=== PATIENT | male | born 1990 | race Caucasian/White ===

== ENCOUNTER 2020-10-11 18:19 | Emergency (ER) | payer OTHER ==
[2020-10-11] MEDS ORDERED: ONDANSETRON 4 MG/2 ML VIAL ONE (19:07)
[2020-10-11] MEDS ORDERED: NA CHLORIDE 0.9% 1,000 ML ONE (19:08)
[2020-10-11] MEDS ORDERED: FAMOTIDINE 20 MG/2 ML VIAL IV ONE (19:08)
[2020-10-11 19:15] LABS: ALT/SGPT 123 U/L (12-78); AST/SGOT 131 U/L (15-37); Albumin 4.1 g/dL (3.4-5.0); Alkaline Phosphatase 66 U/L (45-117); BUN Blood Urea Nitrogen 8 mg/dL (7-18); Bicarbonate 23 mmol/L (21-32); Bilirubin Direct 0.1 mg/dL (0-0.2); Bilirubin Total 0.3 mg/dL (0.2-1.0); Glucose Level 104 mg/dL (74-106); Lipase 328 U/L (73-393); Magnesium 2.2 mg/dL (1.8-2.4); NT PRO-BNP 26 pg/mL (<125); Potassium 3.8 mmol/L (3.5-5.1); Protein, Total 8.6 g/dL (6.4-8.2); Sodium Level 144 mmol/L (136-145); Troponin (Emerg Dept Use Only) < 0.02 ng/mL (0.0-0.045)
[2020-10-11 19:20] LABS: Absolute Lymphocytes (CBC) 1.3 K/uL (0.7-4.9); Hematocrit 41.7 % (39.6-49.0); Lymphocytes % 28.6 % (15.3-44.8); MPV 6.2 fL (7.6-11.3); RBC Red Blood Cell Count 4.31 M/uL (4.33-5.43)
--- NOTE | 2020-10-11 19:27 | RAD REPORT ---
EXAM DESCRIPTION: RAD - Chest Single View - 10/11/2020 7:22 pm CLINICAL HISTORY: CHEST PAIN Chest pain. COMPARISON: No comparisons FINDINGS: Portable technique limits examination quality. The lungs are grossly clear. The heart is normal in size. No displaced fractures. IMPRESSION: No acute intrathoracic process suspected.
[2020-10-11 19:32] LABS: Protime INR 1.03
--- NOTE | 2020-10-11 20:41 | RAD REPORT ---
EXAM DESCRIPTION: CT - Chest For Pe Angio - 10/11/2020 8:30 pm CLINICAL HISTORY: Chest pain. CHEST PAIN COMPARISON: No comparisons TECHNIQUE: CT angiogram of the pulmonary arteries was performed with MIP. All CT scans are performed using dose optimization technique as appropriate and may include automated exposure control or mA/KV adjustment according to patient size. FINDINGS: No evidence of pulmonary thromboembolism. No acute aortic finding demonstrated. The lungs are clear although respiratory motion artifact is present. No significant pericardial or pleural fluid. No concerning bony finding. Fatty liver. IMPRESSION: No evidence of pulmonary thromboembolism.
--- NOTE | 2020-10-11 21:24 | EDPHYS ---
Physician Documentation [facility] Name: Mc Barrios Age: 30 yrs Sex: Male : 1990 Arrival Date: 10/11/2020 Time: 18:20 Bed 4 Private MD: ED Physician Diego Pearson HPI: 10/11 18:29 This 30 yrs old Male presents to ER via EMS with complaints of Chest Pain, jmm ETOH Abuse. 18:29 The patient or guardian reports chest pain that is located primarily in the substernal [facility] area. The pain does not radiate. Associated signs and symptoms: Pertinent positives: abdominal pain, vomiting. The chest pain is described as aching. This is a 30 year old male with a history of alcoholism and htn that presents to the ED with complaints of chest pain beginning earlier today. Patient states having an episode of vomiting this morning and has not eaten since. Denies history of CAD. . Historical: - Allergies: 18:23 Sulfa (Sulfonamide Antibiotics); iw - Home Meds: 18:26 lisinopril 10 mg Oral tab 1 tab once daily [Active]; iw - PMHx: 18:26 Hypertension; iw - PSHx: 18:23 Hernia repair; iw - Immunization history:: Adult Immunizations unknown. - Social history:: Smoking status: Patient denies any tobacco usage or history of. Patient uses alcohol. ROS: 18:29 Constitutional: Negative for fever, chills, and weight loss. jmm 18:29 Cardiovascular: Positive for chest pain. 18:29 All other systems are negative. Exam: 18:29 Constitutional: This is a well developed, well nourished patient who is awake, alert, jmm and in no acute distress. Head/Face: atraumatic. Eyes: EOMI, no conjunctival erythema appreciated ENT: Moist Mucus Membranes Neck: Trachea midline, Supple Chest/axilla: Normal chest wall appearance and motion. Cardiovascular: Regular rate and rhythm. No edema appreciated Respiratory: Normal respirations, no respiratory distress appreciated Abdomen/GI: Non distended, soft Back: Normal ROM Skin: General appearance color normal MS/ Extremity: Moves all extremities, no obvious deformities appreciated, no edema noted to the lower extremities Neuro: Awake and alert, normal gait Psych: Behavior is normal, Mood is normal, Patient is cooperative and pleasant Vital Signs: 18:23 BP 133 / 64; Pulse 116; Resp 18; Temp 98.5; Pulse Ox 92% on R/A; iw 20:00 BP 133 / 77; Pulse 100; Resp 18; Pulse Ox 98% on R/A; ea 21:30 BP 135 / 79; Pulse 92; Resp 18; Pulse Ox 99% ; ea MDM: 18:29 Patient medically screened. cris 21:20 Data reviewed: vital signs, nurses notes. Counseling: I had a detailed discussion with yenifer the patient and/or guardian regarding: the historical points, exam findings, and any diagnostic results supporting the discharge/admit diagnosis, lab results, radiology results, the need for outpatient follow up. ED course: HEART Score = 1. Patient given strict return precautions. Patient understood and agrees with the plan of care. . 10/11 18:32 Order name: Basic Metabolic Panel; Complete Time: 19:29 [facility] 10/11 18:32 Order name: CBC with Diff; Complete Time: 19:29 [facility] 10/11 18:32 Order name: LFT's; Complete Time: 19:29 [facility] 10/11 18:32 Order name: Magnesium; Complete Time: 19:29 [facility] 10/11 18:32 Order name: NT PRO-BNP; Complete Time: 19:29 [facility] 10/11 18:32 Order name: PT-INR; Complete Time: 19:35 [facility] 10/11 18:32 Order name: Troponin (emerg Dept Use Only); Complete Time: 19:29 [facility] 10/11 18:32 Order name: XRAY Chest (1 view); Complete Time: 19:31 [facility] 10/11 18:32 Order name: D-Dimer; Complete Time: 19:35 [facility] 10/11 18:32 Order name: Lipase; Complete Time: 19:29 [facility] 10/11 18:32 Order name: ETOH Level; Complete Time: 19:29 [facility] 10/11 19:58 Order name: CT Chest For PE Angio; Complete Time: 20:49 [facility] 10/11 18:32 Order name: EKG; Complete Time: 18:34 [facility] 10/11 18:32 Order name: Cardiac monitoring; Complete Time: 18:33 [facility] 10/11 18:32 Order name: EKG - Nurse/Tech; Complete Time: 18:33 [facility] 10/11 18:32 Order name: IV Saline Lock; Complete Time: 18:34 [facility] 10/11 18:32 Order name: Labs collected and sent; Complete Time: 18:49 [facility] 10/11 18:32 Order name: O2 Per Protocol; Complete Time: 18:33 [facility] 10/11 18:32 Order name: O2 Sat Monitoring; Complete Time: 18:33 [facility] Administered Medications: 18:55 Drug: NS 0.9% 1000 ml Route: IV; Rate: 1 bolus; Site: left antecubital; 7 21:49 Follow up: Response: No adverse reaction; IV Status: Completed infusion; IV Intake: ea 1000ml 18:55 Drug: Zofran (Ondansetron) 4 mg Route: IVP; Site: left antecubital; jl7 20:00 Follow up: Response: No adverse reaction ea 18:57 Drug: Pepcid 20 mg Route: IVP; Site: left antecubital; jl7 20:00 Follow up: Response: No adverse reaction ea Disposition: 10/12 06:00 Co-signature as Attending Physician, Diego Pearson MD I agree with the assessment and cris plan of care. Disposition: 10/11/20 21:23 Discharged to Home. Impression: Chest pain, unspecified, Unspecified abdominal pain. - Condition is Stable. - Discharge Instructions: Abdominal Pain, Adult, Nonspecific Chest Pain. - Prescriptions for chlordiazepoxide HCl 25 mg Oral capsule - take 2 capsule by ORAL route every 4-6 hours up to 300 mg/day; 30 capsule. Lisinopril 10 mg Oral Tablet - take 1 tablet by ORAL route once daily; 30 tablet. - Medication Reconciliation Form, Thank You Letter, Antibiotic Education, Prescription Opioid Use, Work release form form. - Follow up: Private Physician; When: 2 - 3 days; Reason: Recheck today's complaints, Continuance of care, Re-evaluation by your physician. Signatures: Dispatcher [employer] Diego Turner MD MD cha Mickail, Joel, PA PA jmm Williams, Irene, RN Lawrence Beckman RN RN jl7 Antunez, Elena, RN RN ea Corrections: (The following items were deleted from the chart) 10/11 21:49 21:23 10/11/2020 21:23 Discharged to Home. Impression: Chest pain, unspecified; ea Unspecified abdominal pain. Condition is Stable. Forms are Medication Reconciliation Form, Thank You Letter, Antibiotic Education, Prescription Opioid Use. Follow up: Private Physician; When: 2 - 3 days; Reason: Recheck today's complaints, Continuance of care, Re-evaluation by your physician. yenifer
--- NOTE | 2020-10-11 21:24 | ER ---
Nurse's Notes [facility] Name: Mc Barrios Age: 30 yrs Sex: Male : 1990 Arrival Date: 10/11/2020 Time: 18:20 Bed 4 Private MD: Diagnosis: Chest pain, unspecified;Unspecified abdominal pain Presentation: 10/11 18:20 Chief complaint: EMS states: pt has been on a four day alcohol binge , has been iw drinking liquor and gatorade, last drink was 2 pm today, started having left sided chest pain X 1 hour, pt states he drinks heavily every couple days. Coronavirus screen: At this time, the client does not indicate any symptoms associated with coronavirus-19. Ebola Screen: Patient negative for fever greater than or equal to 101.5 degrees Fahrenheit, and additional compatible Ebola Virus Disease symptoms Patient denies exposure to infectious person. Patient denies travel to an Ebola-affected area in the 21 days before illness onset. No symptoms or risks identified at this time. Initial Sepsis Screen: Does the patient meet any 2 criteria? No. Patient's initial sepsis screen is negative. Does the patient have a suspected source of infection? No. Patient's initial sepsis screen is negative. Risk Assessment: Do you want to hurt yourself or someone else? Patient reports no desire to harm self or others. Onset of symptoms was October 11, 2020. 18:20 Method Of Arrival: EMS: [facility] 18:20 Acuity: ROSCOE 3 iw Historical: - Allergies: 18:23 Sulfa (Sulfonamide Antibiotics); iw - Home Meds: 18:26 lisinopril 10 mg Oral tab 1 tab once daily [Active]; iw - PMHx: 18:26 Hypertension; iw - PSHx: 18:23 Hernia repair; iw - Immunization history:: Adult Immunizations unknown. - Social history:: Smoking status: Patient denies any tobacco usage or history of. Patient uses alcohol. Screenin:34 Abuse screen: Denies threats or abuse. Denies injuries from another. Nutritional jl7 screening: No deficits noted. Tuberculosis screening: No symptoms or risk factors identified. Fall Risk IV access (20 points). Total Chung Fall Scale indicates No Risk (0-24 pts). Assessment: 18:30 General: Appears in no apparent distress. uncomfortable, Behavior is calm, cooperative, jl7 appropriate for age. Pain: Complains of pain in anterior aspect of left upper chest and epigastric area Pain does not radiate. Pain currently is 6 out of 10 on a pain scale. Pain began 2 hours ago. Neuro: Level of Consciousness is awake, alert, obeys commands, Oriented to person, place, time, situation. Cardiovascular: Patient's skin is warm and dry. Rhythm is sinus tachycardia. Respiratory: Airway is patent Respiratory effort is even, unlabored, Respiratory pattern is regular, symmetrical. GI: Abdomen is non-distended, Reports epigastric pain. Derm: Skin is pink, warm \T\ dry. 20:28 Reassessment: Patient and/or family updated on plan of care and expected duration. Pain ea level reassessed. Patient is alert, oriented x 3, equal unlabored respirations, skin warm/dry/pink. Pt taken to CT. 20:39 Reassessment: Patient and/or family updated on plan of care and expected duration. Pain ea level reassessed. Patient is alert, oriented x 3, equal unlabored respirations, skin warm/dry/pink. Returned from CT. 21:45 Reassessment: Patient and/or family updated on plan of care and expected duration. Pain ea level reassessed. Patient is alert, oriented x 3, equal unlabored respirations, skin warm/dry/pink. Discharge instruction given to patient verbalized the understaining of instruction. Pt left ED ambulatory accompanied by mother, pt tolerating well. Vital Signs: 18:23 BP 133 / 64; Pulse 116; Resp 18; Temp 98.5; Pulse Ox 92% on R/A; iw 20:00 BP 133 / 77; Pulse 100; Resp 18; Pulse Ox 98% on R/A; ea 21:30 BP 135 / 79; Pulse 92; Resp 18; Pulse Ox 99% ; ea ED Course: 18:20 Patient arrived in ED. iw 18:20 Ruy Ahmadi PA is PHCP. yenifer 18:20 Diego Pearson MD is Attending Physician. yenifer 18:22 Lawrence Ramos RN is Primary Nurse. jl7 18:23 Triage completed. iw 18:23 Arm band placed on. iw 18:34 Patient has correct armband on for positive identification. Bed in low position. Call jl7 light in reach. Side rails up X2. desk monitor on. Pulse ox on. NIBP on. 18:34 Patient maintains SpO2 saturation greater than 95% on room air. jl7 18:45 Maintain EMS IV. Dressing intact. Good blood return noted. Site clean \T\ dry. Gauge \T\ jl 7 site: 20 left AC. 18:45 Initial lab(s) drawn, by me, sent to lab. jl7 19:22 XRAY Chest (1 view) In Process Unspecified. EDMS 19:35 Notified Nurse Practitioner and/or Physician Director Of Hospitality of a critical lab result(s), D sg Dimer 522. 20:30 CT Chest For PE Angio In Process Unspecified. EDMS 21:46 No provider procedures requiring assistance completed. IV discontinued, intact, ea bleeding controlled, No redness/swelling at site. Pressure dressing applied. Administered Medications: 18:55 Drug: NS 0.9% 1000 ml Route: IV; Rate: 1 bolus; Site: left antecubital; jl7 21:49 Follow up: Response: No adverse reaction; IV Status: Completed infusion; IV Intake: ea 1000ml 18:55 Drug: Zofran (Ondansetron) 4 mg Route: IVP; Site: left antecubital; jl7 20:00 Follow up: Response: No adverse reaction ea 18:57 Drug: Pepcid 20 mg Route: IVP; Site: left antecubital; jl7 20:00 Follow up: Response: No adverse reaction ea Intake: 21:49 IV: 1000ml; Total: 1000ml. ea Outcome: 21:23 Discharge ordered by . yenifer 21:48 Discharged to home ambulatory, with family. ea 21:48 Condition: stable 21:48 Discharge instructions given to patient, Instructed on discharge instructions, follow up and referral plans. medication usage, Demonstrated understanding of instructions, follow-up care, medications, Prescriptions given X 2. 21:49 Patient left the ED. ea Signatures: Dispatcher [employer] EDRodriguez Buchanan, RN Ruy Palomino PA PA jmm Williams, Irene, RN Lawrence Beckman RN RN jl7 Antunez, Elena, RN RN ea
--- NOTE | 2020-10-12 06:23 | EKG ---
Test Date: 2020-10-11 Test Time: 18:22:07 [employer] Technician: ERIC MEASUREMENT RESULTS: Intervals: Rate: 118 WV: 140 QRSD: 88 QT: 330 QTc: 462 [place]: P: 9 WV: 140 QRS: -5 T: 24 INTERPRETIVE STATEMENTS: Sinus tachycardia Minimal voltage criteria for LVH, may be normal variant Borderline ECG No previous ECG available for comparison Electronically Signed On 10-12-20 06:22:34 SENIOR RISK MANAGER by Nick Hammond
[2020-10-12 15:40] VITALS: TEMP 98.5
[2020-10-12 16:11] VITALS: BP 135/79; O2SAT 99
== END 2020-10-11 21:49 | disposition home or self-care (01) ==
LOC: ER 18:19
DX: R07.9 Chest pain, unspecified (principal); R10.9 Unspecified abdominal pain; I10 Essential (primary) hypertension; Z88.2 Allergy status to sulfonamides
CPT/HCPCS: 96361; 93005; 85025; 80048; 36415; 80320; 83735; 85610; 85379; 80076; 84484; 83690; 83880; 71275; 71045; 96375; 96374; 99285; Q9967; J7030; J2405

== ENCOUNTER 2020-11-22 16:40 | Emergency (ER) | payer OTHER ==
--- OUTSIDE RECORDS SUMMARY | 2020-11-22 16:43 | XMS REPORT | Continuity of Care Document ---
:1990 Author Organization [facility] Team Providers Name Role Phone [facility] Unavailable Un available Problems Problem Status Onset Classification Date Comments Sourc e Date Reported PANCREATITIS Active Memoria l 0 [place] ACUTE ALCOHOLIC Active Reagan rial PANCREATITIS 0 Per Acute 08/28/2020 [facility] [place] pancreatitis with uninfected necrosis, unspecified ALCOHOL INDUCED Active Reagan rial ACUTE [place] PANCREATITIS WITHO ACUTE Active [facility] PANCREATITIS [place] WITH UNINFECTED NECRO Medications Medication Details Route Status Patient Ordering Order Source Instructions Provider Date Fenofibrate 145 MG 145 mg = 1 Active MH Oral Tablet tab, PO, 2020 [place] Daily, # 30 tab, 0 Refill(s), Pharmacy: [facility] #[id number], 190.5, cm, 08/22/20 23:01:00 CDT, Height, 122.045, kg, 08/22/20 23:01:00 CDT, Weight omega-3 1 gm = 1 cap, Active MH polyunsaturated PO, BID, # 60 2019 [place] fatty acids 1000 cap, 0 mg oral capsule Refill(s), Pharmacy: [facility] #[id number], 190.5, cm, 08/22/20 23:01:00 CDT, Height, 122.045, kg, 08/22/20 23:01:00 CDT, Weight ciprofloxacin 500 500 mg = 1 Active 08/26/ MH mg oral tablet tab, PO, Q12H, 2019 [place] for UTI, X 3 day, # 6 tab, 0 Refill(s), Pharmacy: [facility] #[id number], 190.5, cm, 08/22/20 23:01:00 CDT, Height, 122.045, kg, 08/22/20 23:01:00 CDT, Weight Metronidazole 500 500 mg = 1 Active 08/26/ MH MG Oral Tablet tab, PO, Q8H, 2020 [place] [Flagyl] X 3 day, # 9 tab, 0 Refill(s), Pharmacy: [facility] #[id number], 190.5, cm, 08/22/20 23:01:00 CDT, Height, 122.045, kg, 08/22/20 23:01:00 CDT, Weight thiamine 100 mg 100 mg = 1 Active oral tablet tab, PO, 2020 [place] Daily, X 30 day, # 30 tab, 0 Refill(s), Pharmacy: [facility] #[id number], 190.5, cm, 08/22/20 23:01:00 CDT, Height, 122.045, kg, 08/22/20 23:01:00 CDT, Weight Folic Acid 1 MG 1 mg = 1 tab, Active MH Oral Tablet PO, Daily, # 2020 [place] 30 tab, 0 Refill(s), Pharmacy: [facility] #[id number], 190.5, cm, 08/22/20 23:01:00 CDT, Height, 122.045, kg, 08/22/20 23:01:00 CDT, Weight Chlordiazepoxide 10 mg = 1 cap, Active MH Hydrochloride 10 PO, QID, X 3 2020 [place] MG Oral Capsule day, # 12 cap, 0 Refill(s), Pharmacy: [facility] #[id number], 190.5, cm, 08/22/20 23:01:00 CDT, Height, 122.045, kg, 08/22/20 23:01:00 CDT, Weight Lorazepam 1 MG 1 mg = 1 tab, Active MH Oral Tablet PO, TID, PRN 2020 [place] [Ativan] as needed for anxiety, X 7 day, # 24 tab, 0 Refill(s), Pharmacy: [facility] #[id number], 190.5, cm, 08/22/20 23:01:00 CDT, Height, 122.045, kg, 08/22/20 23:01:00 CDT, Weight Famotidine 20 MG 20 mg = 1 tab, Active MH Oral Tablet PO, Q12H, # 14 2020 Mickie and [Pepcid] tab, 0 Refill(s), Pharmacy: [facility] #[id number], 190.5, cm, 08/22/20 23:01:00 CDT, Height, 122.045, kg, 08/22/20 23:01:00 CDT, Weight labetalol 100 mg 100 mg = 1 Active oral tablet tab, PO, TID, 2019 [place] # 90 tab, 0 Refill(s), Pharmacy: [facility] #[id number], 190.5, cm, 08/22/20 23:01:00 CDT, Height, 122.045, kg, 08/22/20 23:01:00 CDT, Weight Potassium Chloride Notes: (Same Inactive 1.33 MEQ/ML Oral as: Potassium 2019 [place] Solution Chloride) Tramadol Notes: Not to No Longer exceed Active 2019 [place] 400mg/day. (Same As: Ultram) Lisinopril Notes: (Same No Longer as: Prinivil, Active 2019 [place] Zestril) Potassium Chloride Notes: (Same No Longer as: K-Dur 20) Active 2019 [place] "Do Not Crush" Give with food and full glass of water For patients unable to swallow tablet, dissolve in one half glass of water. Allow about 2 minutes for the tablets to disintegrate. Stir before giving to prepare slurry and administer. Please exclude Patient’ s with feeding tube less than 14 [place] (Dobhoff, J-tube etc) and pediatric and patients. potassium Notes: (Same No Longer phosphate-sodium as: Phos-NaK) Active 2019 [place] phosphate 250 Each 1.5 gm mg-280 mg-160 mg pkt has 250mg oral powder for phosphorous. reconstitution Mix w/2.5oz water and stir. potassium Notes: (Same No Longer phosphate as: K Active 2019 [place] Phosphate.) Do not infuse phosphorous concurrently in the same line as TPN or IVF that contains calcium. For double lumen central lines, phosphorous may be infused in a separate lumen from TPN. 1 mMol phoshate has 1.47 mEq potassium Infuse over 4 hours sodium phosphate Notes: Infuse No Longer over [address] Do not infuse phosphorous concurrently in the same line as TPN or IVF that contains calcium. For double lumen central lines, phosphorous may be infused in a separate lumen from TPN. Magnesium Sulfate Notes: WASTE: No Longer F/P - Sink; E Active 2019 [place] - [email or web address] Trash Bin Magnesium Oxide Notes: (Same No Longer H as: Mag-Ox Active 2019 [place] 400) Magnesium oxide [id number] elemental magnesium Dose=____mg magnesium oxide (___mg elemental magnesium) Calcium Gluconate Notes: WASTE: No Longer F/P - Sink; E Active 2019 [place] - [facility] Trash Bin Potassium Chloride Notes: (Same Inactive 1.33 MEQ/ML Oral as: Potassium 2019 [place] Solution Chloride) Labetalol Notes: With No Longer food. (Same 2019 [place] as:Trandate, Normodyne) Lactulose 667 Notes: (Same Inactive MG/ML Oral as:Chronulac) 2019 [facility] d Solution Haldol Notes: (Same Inactive as: Haldol) 2019 [place] Ciprofloxacin Notes: Do not No Longer refrigerate Active 2019 [place] Flagyl Notes: (Same No Longer as: Flagyl) [address] Avoid alcohol. Famotidine 20 MG Notes: (Same No Longer Oral Tablet as: Pepcid) Active [address] [place] [address] [Pepcid] 168 HR Clonidine Notes: Patch No Longer 0.84348 MG/HR delivers 0.2 Active 2019 [place] and Transdermal Patch mg/24 hours; Patch is applied weekly. "Remove old patch before application of new patch" (Same As: [id number] ) Labetalol Notes: (Same No Longer as: Normodyne, Active 2019 [place] Trandate) Push over 2 minutes Give bolus over 2-3 minutes. Fenofibrate 160 MG Notes: (Same No Longer Oral Tablet as: Tricor) Active 2019 [place] omega-3 Notes: (Same No Longer polyunsaturated as: [place], 2019 [place] fatty acids formally named [place]) "Do Not Crush" Chlordiazepoxide Notes: (Same No Longer Hydrochloride 10 As: Librium) Active 2019 [place] MG Oral Capsule Folic Acid Notes: (Same No Longer as: Folvite) Active 2019 [place] multivitamin Notes: (Same Inactive as:Thera) 2019 [place] WASTE: F/P - Black; E - Municipal Trash Bin Take with food. Thiamine Notes: (Same No Longer As: Vitamin Active 2019 [place] B1) multivitamin with Notes: (Same No Longer minerals as:Thera-M, Active 2019 [place] Theragran-M) WASTE: F/P - Black; E - Municipal Trash Bin Give with food. Reglan Notes: (Same No Longer as: Reglan) Active 2019 [place] Lorazepam Notes: (Same No Longer as: Ativan) Active 2019 [place] Clonidine Notes: (Same No Longer As: Catapres) Active 2019 [place] Phenergan 12.5 mg, Inactive Route: IVPB, 2019 [place] Q4H, Dosing Weight 122.045, kg, PRN Nausea & Vomiting, Start date: 08/23/20 8:13:00 CDT, Duration: 30 day, Stop date: 09/22/20 8:12:00 CDT meropenem Notes: Same as No Longer Merrem Active 2019 [place] Lovenox Notes: (Same No Longer as: Lovenox) Active 2019 [place] Metoprolol Notes: (Same Inactive as: Lopressor) 2019 [place] Push over 2 minutes lisinopril 10 mg 10 mg = 1 tab, Active oral tablet PO, Daily, # 2020 [place] 30 tab, 0 Refill(s) NS (Bolus) IV 1,000 mL, Inactive 1,000 ml/hr, 2019 [place] Infuse Over: 1 hr, Route: IV, 1,000, Drug form: INJ, ONCE, Priority: STAT, Dosing Weight 122.045 kg, Start date: 08/22/20 23:14:00 CDT, Stop date: 08/22/20 23:14:00 CDT, 0 Ativan Notes: (Same No Longer as: Ativan) 2019 [place] NS 1,000 mL 1,000 mL, No Longer Rate: 100 Active 2019 [place] ml/hr, Infuse over: 10 hr, Route: IV, Dosing Weight 122.045 kg, Total Volume: 1,000, Start date: 08/22/20 23:11:00 CDT, Duration: 30 day, Stop date: 09/21/20 23:10:00 CDT, 2.56, m2, 0 Dilaudid Notes: Same No Longer as: Dilaudid Active 2019 [place] Dextrose 50% 12.5 gm, 25 No Longer Syringe (D50W) mL, Route: Active 2019 [facility] nd IVP, Drug Form: INJ, Dosing Weight 122.045, kg, PRN, PRN Blood Glucose Results, Start date: 08/22/20 23:10:00 CDT, Duration: 30 day, Stop date: 09/21/20 23:09:00 CDT, 0 Glucagon 1 mg, Route: No Longer IM, Drug form: Active 2019 [place] PDR/INJ, PRN, Dosing Weight 122.045, kg, PRN Blood Glucose Results, Start date: 08/22/20 23:10:00 CDT, Duration: 30 day, Stop date: 09/21/20 23:09:00 CDT, 0 Ondansetron Notes: (Same No Longer as: Zofran) 2019 [place] MEDICATION WASTE Product Size: 4 mg Product Wasted: ___ mg Allergies, Adverse Reactions, Alerts Substance Category Reaction Severity Reaction Status Date Comments S ource type Reported sulfa drugs Assertion Drug Active allergy [facility] Immunizations No Data Provided for This Section Results Order Name Results Value Reference Date Interpretation Comments Barb rce Range CHEM PANEL Glucose Lvl 106 70 - 99 08/26 [place] CHEM PANEL BUN 8 7 - 22 08/26 [facility] CHEM PANEL Creatinine 0.65 0.50 - 08/26 Lvl 1.40 [facility] CHEM PANEL Sodium Lvl 137 135 - 145 08/26 [place] CHEM PANEL Potassium 3.1 3.5 - 5.1 10 MH Lvl /2019 [place] CHEM PANEL Chloride Lvl 102 95 - 109 08/26 MH [place] CHEM PANEL CO2 26 24 - 32 08/26 [place] CHEM PANEL Calcium Lvl 8.2 8.5 - 10.5 08/26 MH [place] CHEM PANEL Total 6.4 6.4 - 8.4 08/26 MH Protein [place] CHEM PANEL Albumin Lvl 2.3 3.5 - 5.0 08/26 MH [place] CHEM PANEL ALT 76 0 - 65 08/26 MH [place] CHEM PANEL AST 86 0 - 37 08/26 MH [place] CHEM PANEL Alk Phos 85 39 - 136 08/26 [place] CHEM PANEL Bili Total 0.8 0.2 - 1.3 08/26 [place] CHEM PANEL AGAP 12.1 10.0 - 08/26 MH 20.0 [place] CHEM PANEL B/C Ratio 12 6 - 25 08/26 [facility] CHEM PANEL Globulin 4.1 2.7 - 4.2 08/26 MH [place] CHEM PANEL A/G Ratio 0.6 0.7 - 1.6 08/26 [facility] CHEM PANEL eGFR 131 08/26 Result Comment: The [facility] eGFR is calculated using the CKD-EPI formula. In most young, healthy individuals the eGFR will be >90 mL/min/1.73m2. The eGFR declines with age. An eGFR of 60-89 may be normal in some populations, particularly the elderly, for whom the CKD-EPI formula has not been extensively validated. Use of the eGFR is not recommended in the following populations:<b r/>
Indivi duals with unstable creatinine concentrations , including patients and those with serious co-morbid conditions.

Patient s with extremes in muscle mass or diet.

The data above are obtained from the National Kidney Disease Education Program (NKDEP) which additionally recommends that when the eGFR is used in patients with extremes of body mass index for purposes of drug dosing, the eGFR should be multiplied by the estimated BMI. HEMATOLOGY Segs 74.5 45.0 - 10 MH 75.0 [place] HEMATOLOGY Lymphocytes 12.0 20.0 - 10/04 MH 40.0 /2019 [place] HEMATOLOGY Monocytes 11.7 2.0 - 12.0 10/04 MH /2019 [place] HEMATOLOGY Eosinophils 1.6 0.0 - 4.0 10/04 MH /2019 [place] HEMATOLOGY Basophils 0.2 0.0 - 1.0 10/ MH /2019 [place] HEMATOLOGY Neutrophils 9.7 1.5 - 8.1 10/04 MH # /2019 [place] HEMATOLOGY Lymphocytes 1.6 1.0 - 5.5 10/04 MH # /2019 [place] HEMATOLOGY Monocytes # 1.5 0.0 - 0.8 10/ MH /2019 [place] HEMATOLOGY Eosinophils 0.2 0.0 - 0.5 10/ MH # /2019 [place] HEMATOLOGY WBC 13.0 3.7 - 10.4 10/ MH /2019 [place] HEMATOLOGY RBC 3.37 4.70 - 10/04 MH 6.10 [place] HEMATOLOGY Hgb 11.5 14.0 - 10/04 MH 18.0 /2019 [place] HEMATOLOGY Hct 33.6 42.0 - 10/04 MH 54.0 /2019 [place] HEMATOLOGY MCV 99.7 80.0 - 10/04 MH 94.0 /2019 [place] HEMATOLOGY MCH 34.2 27.0 - 10/04 MH 31.0 [place] HEMATOLOGY MCHC 34.3 32.0 - 10/04 MH 36.0 [place] HEMATOLOGY RDW 13.2 11.5 - 10/04 MH 14.5 [place] HEMATOLOGY Platelet 175 133 - 450 10/ [place] HEMATOLOGY MPV 7.2 7.4 - 10.4 10/ [place] CHEM PANEL Glucose Lvl 97 70 - 99 10/03 [place] CHEM PANEL BUN 8 7 - 22 10/03 [place] CHEM PANEL Creatinine 0.64 0.50 - 10/03 MH Lvl 1.40 /2019 [place] CHEM PANEL Sodium Lvl 134 135 - 145 10/ [place] CHEM PANEL Potassium 3.4 3.5 - 5.1 10/ MH Lvl /2019 [place] CHEM PANEL Chloride Lvl 100 95 - 109 10/ [place] CHEM PANEL CO2 25 24 - 32 10/03 [place] CHEM PANEL Calcium Lvl 7.9 8.5 - 10.5 10/03 MH /2020 [place] CHEM PANEL Total 6.7 6.4 - 8.4 08/25 MH [place] CHEM PANEL Albumin Lvl 2.5 3.5 - 5.0 08/25 [place] CHEM PANEL ALT 61 0 - 65 08/25 [place] CHEM PANEL AST 59 0 - 37 08/25 [place] CHEM PANEL Alk Phos 81 39 - 136 08/25 [place] CHEM PANEL Bili Total 1.0 0.2 - 1.3 08/25 [place] CHEM PANEL AGAP 12.4 10.0 - 08/25 MH 20.0 [place] CHEM PANEL B/C Ratio 12 6 - 25 08/25 [place] CHEM PANEL Globulin 4.2 2.7 - 4.2 08/25 [place] CHEM PANEL A/G Ratio 0.6 0.7 - 1.6 08/25 [place] CHEM PANEL eGFR 132 08/25 Result Comment: The [facility] eGFR is calculated using the CKD-EPI formula. In most young, healthy individuals the eGFR will be >90 mL/min/1.73m2. The eGFR declines with age. An eGFR of 60-89 may be normal in some populations, particularly the elderly, for whom the CKD-EPI formula has not been extensively validated. Use of the eGFR is not recommended in the following populations:<b r/>
Indivi duals with unstable creatinine concentrations , including patients and those with serious co-morbid conditions.

Patient s with extremes in muscle mass or diet.

The data above are obtained from the National Kidney Disease Education Program (NKDEP) which additionally recommends that when the eGFR is used in patients with extremes of body mass index for purposes of drug dosing, the eGFR should be multiplied by the estimated BMI. HEMATOLOGY WBC 13.6 3.7 - 10.4 08/25 [place] HEMATOLOGY RBC 3.46 4.70 - 08/25 MH 6. [place] HEMATOLOGY Hgb 12.1 14.0 - 08/25 MH 18. [place] HEMATOLOGY Hct 34.4 42.0 - 08/25 MH 54.0 [place] HEMATOLOGY MCV 99.3 80.0 - 10/ MH 94.0 /2019 [place] HEMATOLOGY MCH 34.9 27.0 - 10/03 MH 31.0 /2019 [place] HEMATOLOGY MCHC 35.1 32.0 - 10/ MH 36.0 /2019 [place] HEMATOLOGY RDW 12.9 11.5 - 10/03 MH 14.5 /2019 [place] HEMATOLOGY Platelet 143 133 - 450 10/ MH [place] HEMATOLOGY MPV 7.4 7.4 - 10.4 10/ MH [place] HEMATOLOGY Segs 81.3 45.0 - 10/03 MH 75.0 /2019 [place] HEMATOLOGY Lymphocytes 8.6 20.0 - 10/03 MH 40.0 /2019 [place] HEMATOLOGY Monocytes 9.7 2.0 - 12.0 10 MH [place] HEMATOLOGY Eosinophils 0.2 0.0 - 4.0 10 MH [place] HEMATOLOGY Basophils 0.2 0.0 - 1.0 10 MH [place] HEMATOLOGY Neutrophils 11.1 1.5 - 8.1 10 MH # [place] HEMATOLOGY Lymphocytes 1.2 1.0 - 5.5 10/ MH # [place] HEMATOLOGY Monocytes # 1.3 0.0 - 0.8 10 MH [place] CHEM PANEL Glucose Lvl 122 70 - 99 08/24 MH [place] CHEM PANEL BUN 11 7 - 22 10 [place] CHEM PANEL Creatinine 0.80 0.50 - 10/ MH Lvl 1.40 [place] CHEM PANEL Sodium Lvl 137 135 - 145 10 MH [place] CHEM PANEL Potassium 3.4 3.5 - 5.1 10/ MH Lvl /2019 [place] CHEM PANEL Chloride Lvl 103 95 - 109 08/24 MH [place] CHEM PANEL CO2 24 24 - 32 10/ MH [place] CHEM PANEL Calcium Lvl 8.0 8.5 - 10.5 10 MH [place] CHEM PANEL Total 6.5 6.4 - 8.4 10/ MH [place] CHEM PANEL Albumin Lvl 2.7 3.5 - 5.0 10/ MH [place] CHEM PANEL ALT 76 0 - 65 10/ MH [place] CHEM PANEL AST 68 0 - 37 10/ [place] CHEM PANEL Alk Phos 68 39 - 136 08/24 [place] CHEM PANEL Bili Total 1.2 0.2 - 1.3 08/24 [place] CHEM PANEL AGAP 13.4 10.0 - 08/24 MH 20.0 [place] CHEM PANEL B/C Ratio 14 6 - 25 08/24 [place] CHEM PANEL Globulin 3.8 2.7 - 4.2 08/24 [place] CHEM PANEL A/G Ratio 0.7 0.7 - 1.6 08/24 [facility] CHEM PANEL eGFR 120 08/24 Result Comment: The [facility] eGFR is calculated using the CKD-EPI formula. In most young, healthy individuals the eGFR will be >90 mL/min/1.73m2. The eGFR declines with age. An eGFR of 60-89 may be normal in some populations, particularly the elderly, for whom the CKD-EPI formula has not been extensively validated. Use of the eGFR is not recommended in the following populations:<b r/>
Indivi duals with unstable creatinine concentrations , including patients and those with serious co-morbid conditions.

Patient s with extremes in muscle mass or diet.

The data above are obtained from the National Kidney Disease Education Program (NKDEP) which additionally recommends that when the eGFR is used in patients with extremes of body mass index for purposes of drug dosing, the eGFR should be multiplied by the estimated BMI. HEMATOLOGY Segs 87.2 45.0 - 08/24 MH 75.0 [place] HEMATOLOGY Lymphocytes 4.9 20.0 - 08/24 MH 40.0 [place] HEMATOLOGY Monocytes 7.7 2.0 - 12.0 08/24 [place] HEMATOLOGY Basophils 0.2 0.0 - 1.0 08/24 [place] HEMATOLOGY Neutrophils 16.2 1.5 - 8.1 10 MH # /2019 [place] HEMATOLOGY Lymphocytes 0.9 1.0 - 5.5 08/24 MH # [place] HEMATOLOGY Monocytes # 1.4 0.0 - 0.8 08/24 [place] HEMATOLOGY WBC 18.6 3.7 - 10.4 08/24 [place] HEMATOLOGY RBC 3.91 4.70 - 08/24 MH 6.10 [place] HEMATOLOGY Hgb 13.5 14.0 - 08/24 MH 18.0 [place] HEMATOLOGY Hct 38.7 42.0 - 08/24 MH 54.0 [place] HEMATOLOGY MCV 99.0 80.0 - 08/24 MH 94.0 [place] HEMATOLOGY MCH 34.5 27.0 - 08/24 MH 31.0 [place] HEMATOLOGY MCHC 34.9 32.0 - 08/24 MH 36.0 [place] HEMATOLOGY RDW 13.5 11.5 - 08/24 MH 14.5 [place] HEMATOLOGY Platelet 155 133 - 450 08/24 [facility] HEMATOLOGY MPV 7.5 7.4 - 10.4 08/24 [place] LIPIDS Trig 320 <=149 08/24 mg/dL [facility] CHEM PANEL Lactic Acid 1.5 0.5 - 2.2 08/24 Lvl /2019 [place] IMMUNOLOGY Coronavirus Not Detected Not 08/23 (COVID-19) (08/23/20 5:58 AM) Detected [facility] DANIS CHEM PANEL Lipase Lvl 5025 73 - 393 08/23 [facility] HEMATOLOGY RBC Morph Normal Normal 08/23 (08/22/20 11:50 PM) Mickie and HEMATOLOGY Plt Morph Normal Normal 08/23 (08/22/20 11:50 PM) Mickie and LIPIDS Chol 174 <=199 08/23 mg/dL [facility] LIPIDS Trig 711 <=149 08/23 mg/dL [facility] LIPIDS HDL 28 >=61 mg/dL 08/23 [facility] LIPIDS CHD Risk 6.21 4.00 - 08/23 MH 7. [place] LIPIDS LDL See Note <=99 mg/dL 08/23 Result MH (Calculated) mg/dL Comment: LDL [place] cholesterol cannot be calculated due to very high triglycerides (>400 mg/dL). Recommend Direct LDL if clinically indicated. LIPIDS VLDL See Note 5 08/23 Result MH *NA* /2019 Comment: VLDL [place] (08/22/20 11:50 PM) - Cholesterol level cannot be accurately calculated due to very high triglycerides (>400 mg/dL). Pathology Reports No Data Provided for This Section Diagnostic Reports Report Value Date Source Abdomen RUQ US PROCEDURE INFORMATION: 08/23/2020 [facility] Exam: US Abdomen, Limited; Right Upper Quadra nt Exam date and time: 08/23/2020 5:27 AM Age: 30 years old Clinical indication: Abnormal findings; Addit ional info: /elevated liver enzymes TECHNIQUE: Imaging protocol: US abdo men. Real time ultrasound with image documentation. Limited exam focused on the right upper quadrant . COMPARISON: No relevant prior studies available . LIVER: Increased echogenicity throughout the li kirby consistent with fatty change. This limits the detection of liver masses by sonography. No gross liver abnormality identified. Hepatomegaly with the liver measurin g 20.3 cm in length. Common bile duct: The intrahepatic and extrahepatic bile ducts are not dilated with the common bile duct measuring 4.4 mm. The distal common b ile duct is not well seen. GALLBLADDER: There are no gallstones, gallbladder sludge, per icholecystic fluid or wall thickening. PANCREAS: The pancreas is not well seen due to overlying b owel gas. RIGHT KIDNEY: The right kidney measures 12.5 x 5.2 x 5.2 cm. No right pelvocaliectasis, no right nephrolithia sis and no right renal mass lesion identified. There is no right abdominal ascites. IMPRESSION: 1. Hepatomegaly. 2. Fatty change to the liver. 3. The pancreas is not well seen due to overlyin g bowel gas. Roly Garcia MD On 08/23/2020 07:54:40; V [id number] Consultation Notes No Data Provided for This Section Discharge Summaries No Data Provided for This Section History and Physicals No Data Provided for This Section Vital Signs Vital Sign Value Date Comments Source Temperature Oral (F) 98.9 F 08/26/2020 [facility] Heart Rate 103 08/26/2020 [facility] Respitory Rate 20 08/26/2020 [place] Systolic (mm Hg) 154 08/26/2020 [place] Diastolic (mm Hg) 97 08/26/2020 [place] Temperature Oral (F) 98.4 F 08/26/2020 [facility] Heart Rate 102 08/26/2020 [place] Respitory Rate 18 08/26/2020 [facility] Systolic (mm Hg) 141 08/26/2020 [facility] Diastolic (mm Hg) 103 08/26/2020 [place] Systolic (mm Hg) 150 08/26/2020 [facility] Diastolic (mm Hg) 102 08/26/2020 [facility] Heart Rate 107 08/26/2020 [facility] Temperature Oral (F) 100.6 F 08/26/2020 [facility] Respitory Rate 18 08/26/2020 [facility] Height 190.5 cm 08/23/2020 [facility] Weight 122.045 08/23/2020 [facility] BMI Calculated 33.63 08/23/2020 [facility] Encounters Location Location Encounter Encounter Reason Attending ADM AL Stat us Source Details Type Number For Provider Date Date [facility] [id number] Jeff 08/23 08/26 Per Isaacs /2019 [facility] Procedures No Data Provided for This Section Assessment and Plan Assessment and Plan Date Source Extracted from:Title: Progress Note 08/26/2020 [facility] moise Author: Jeff Isaacs MD Date: 08/25/20 1.Acute alcoholic pancreatitis(K85.20) Symptoms improving Advance diet 2.Sepsis(A41.9) Likely intra-abdominal etiology from acute pancreatitis On Cipro and Flagyl 3.Alcohol abuse(F10.10) Counseled On CIWA protocol Librium 4.Hypertriglyceridemia(E78.1) Continue current treatment 5.LFTs abnormal(R94.5) Likely secondary to fatty liver 6.Obesity(E66.9) Counseled 7.HTN (hypertension)(I10) Uncontrolled Added clonidine, labetalol, lisinopril lovenox Likely home in AM Plan of Care No Data Provided for This Section Social History Social History Date Source Social History TypeResponse 08/23/2020 [facility] Alcohol Current, Type Beer, Liquor. Frequency: Daily. Substance Abuse Use: Past. Type: Marijuana. Smoking Status Never smoker; Previous treatment: None; Ready to change: No; Concerns about tobacco use in household: No; Exposure to Tobacco Smoke None; Cigarette Smoking Last 365 Days No; Reg Smoking Cessation Counse ling No; Tobacco use per day: 0; Number of years: 0; Total pack years: 0; Started at age: 0.0; Stopped at age: 1; entered on: 08/22/20 Family History No Data Provided for This Section Advance Directives No Data Provided for This Section Functional Status No Data Provided for This Section
--- OUTSIDE RECORDS SUMMARY | 2020-11-22 16:44 | XMS REPORT | Summary of Care ---
:1990 Author Organization [facility] spital Address [id number] [place] [id number] Encounter HQ Encntr_angelita(FIN) [id number] Date(s): 08/22/20 - 08/26/[address] [phone] Encounter Diagnosis Acute pancreatitis with uninfected necrosis, unspecified (Final) - Discharge Disposition: Home or Self Care Attending Physician: Jeff Isaacs MD Admitting Physician: Jeff Isaacs MD Vital Signs Most recent to oldest 1 2 3 [Reference Range]: Height 190.5 cm (08/22/20 11:01 PM) Temperature Oral [96.4-99.1 98.9 DegF 98.4 DegF 100. 6 DegF DegF] (08/26/20 8:00 AM) (08/26/20 4:00 AM) *HI* (08/26/20 12:00 A M) Blood Pressure [90-140/60-90 154/97 mmHg 141/103 mmHg 150 /102 mmHg mmHg] *HI* *HI* *HI* (08/26/20 8:00 AM) (08/26/20 4:00 AM) (08/26/20 2:3 0 AM) Respiratory Rate [14-20 20 BRMIN 18 BRMIN 18 BRMIN BRMIN] (08/26/20 8:00 AM) (08/26/20 4:00 AM) (08/26/20 12: 00 AM) Peripheral Pulse Rate [60-100 103 bpm 102 bpm 10 7 bpm bpm] *HI* *HI* *HI* (08/26/20 8:00 AM) (08/26/20 4:00 AM) (08/26/20 2:3 0 AM) Weight 122.045 kg (08/22/20 11:01 PM) Body Mass Index 33.63 m2 (08/22/20 11:01 PM) Problem List No data available for this section Allergies, Adverse Reactions, Alerts Substance Reaction Severity Status sulfa drugs Active Medications Ativan 1 mg, 0.5 mL, Route: IVP, Drug form: INJ, Q6H, Dosing Weight 122.045, kg, PRN Anxiety, Start date: 08/22/20 23:13:00 CDT, Duration: 30 day, Stop date: 09/21/20 23:12:00 CDT, 0 Notes: (Same as: Ativan) Start Date: 08/22/20 Stop Date: 08/26/20 Status: DiscontinuedAtivan 1 mg oral tablet 1 mg = 1 tab, PO, TID, PRN as needed for anxiety, X 7 day, # 24 tab, 0 Refill(s), [id number], 190.5, cm, 08/22/20 23:01:00 CDT, Height, 122.045, kg, 08/22/20 23:01:00 CDT, Weight Start Date: 08/26/20 Stop Date: 09/02/20 Status: Orderedcalcium gluconate + Sodium Chloride 0.9% IV 100 mL 2 gm, 20 mL, Route: IVPB, PRN, Dosing Weight 122.045, kg, PRN Abnormal Lab Result, For NON-ICU Patients Only., Start date: 08/25/20 11:35:00 CDT, Duration: 30 day, Stop date: 09/24/20 10:34:00 REGULATORY AND COMPLIANCE TECHNICIAN, 0 Notes: WASTE: F/P - Sink; E - Municipal Trash Bin Start Date: 08/25/20 Stop Date: 08/26/20 Status: Discontinuedcalcium gluconate + Sodium Chloride 0.9% IV 100 mL 3 gm, 30 mL, Route: IVPB, PRN, Dosing Weight 122.045, kg, PRN Abnormal Lab Result, For NON-ICU Patients Only., Start date: 08/25/20 11:35:00 CDT, Duration: 30 day, Stop date: 09/24/20 10:34:00 REGULATORY AND COMPLIANCE TECHNICIAN, 0 Notes: WASTE: F/P - Sink; E - Municipal Trash Bin Start Date: 08/25/20 Stop Date: 08/26/20 Status: DiscontinuedchlordiazePOXIDE 10 mg oral capsule (Librium) 10 mg = 1 cap, PO, QID, X 3 day, # 12 cap, 0 Refill(s), Pharmacy: [facility] #[id number], 190.5, cm, 08/22/20 23:01:00 CDT, Height, 122.045, kg, 08/22/20 23:01:00 CDT, Weight Start Date: 08/26/20 Stop Date: 08/29/20 Status: OrderedchlordiazePOXIDE 10 mg oral capsule (Librium) 10 mg, 2 cap, Route: PO, Drug form: CAP, Q6Hnow, Dosing Weight 122.045, kg, Alcohol Withdrawal, Start date: 08/23/20 9:00:00 CDT, Duration: 30 day, Stop date: 09/22/20 3:00:00 CDT, 0 Notes: (Same As: Librium) Start Date: 08/23/20 Stop Date: 08/26/20 Status: Discontinuedciprofloxacin 400 mg, 200 mL, Route: IVPB, Drug form: INJ, [id number], Dosing Weight 122.045, kg, Start date: 08/24/20 9:00:00 CDT, Duration: 5 day, Stop date: 08/28/20 21:00:00 CDT, ABX Indication: Intra-abdominal Infection, 0 Notes: Do not refrigerate Start Date: 08/24/20 Stop Date: 08/26/20 Status: Discontinuedciprofloxacin 500 mg oral tablet 500 mg = 1 tab, PO, Q12H, for UTI, X 3 day, # 6 tab, 0 Refill(s), Pharmacy: [facility] #[id number], 190.5, cm, 08/22/20 23:01:00 CDT, Height, 122.045, kg, 08/22/20 23:01:00 CDT, Weight Start Date: 08/26/20 Stop Date: 08/29/20 Status: OrderedcloNIDine 0.1 mg, 1 tab, Route: PO, Drug form: TAB, Q4H, Dosing Weight 122.045, kg, PRN Hypertension, Start date: 08/23/20 8:14:00 CDT, Duration: 30 day, Stop date: 09/22/20 8:13:00 CDT, 0 Notes: (Same As: Catapres) Start Date: 08/23/20 Stop Date: 08/26/20 Status: DiscontinuedcloNIDine patch 0.2 mg/24 hr 1 patch, Route: TOP, Drug Form: ERFILM, Dosing Weight 122.045, kg, Q7D, Start date: 08/23/20 21:00:00 CDT, Duration: 30 day, Stop date: 09/20/20 9:00:00 CDT, 0 Notes: Patch delivers 0.2 mg/24 hours; Patch is applied weekly. "Remove old patch before application of new patch" (Same As: [id number]-3) Start Date: 08/23/20 Stop Date: 08/26/20 Status: DiscontinuedDextrose 50% Syringe (D50W) 12.5 gm, 25 mL, Route: IVP, Drug Form: INJ, Dosing Weight 122.045, kg, PRN, PRN Blood Glucose Results, Start date: 08/22/20 23:10:00 CDT, Duration: 30 day, Stop date: 09/21/20 23:09:00 CDT, 0 Start Date: 08/22/20 Stop Date: 08/26/20 Status: DiscontinuedDextrose 50% Syringe (D50W) 25 gm, 50 mL, Route: IVP, Drug Form: INJ, Dosing Weight 122.045, kg, PRN, PRN Blood Glucose Results,Start date: 08/22/20 23:10:00 CDT, Duration: 30 day, Stop date: 09/21/20 23:09:00 CDT, 0 Start Date: 08/22/20 Stop Date: 08/26/20 Status: DiscontinuedDilaudid 0.5 mg, 0.5 mL, Route: IVP, Drug form: INJ, Q3H, Dosing Weight 122.045, kg, PRN Pain Score 7-10, Start date: 08/22/20 23:11:00 CDT, Duration: 30 day, Stop date: 09/21/20 23:10:00 CDT, 0 Notes: Same as: Dilaudid Start Date: 08/22/20 Stop Date: 08/26/20 Status: Discontinuedfenofibrate 145 mg oral tablet 145 mg = 1 tab, PO, Daily, # 30 tab, 0 Refill(s), Pharmacy: [facility] #[id number], 190.5, cm, 08/22/20 23:01:00 CDT, Height, 122.045, kg, 08/22/20 23:01:00 CDT, Weight Start Date: 08/26/20 Stop Date: 09/25/20 Status: Orderedfenofibrate 145 mg oral tablet 145 mg, 1 tab, Route: PO, Drug form: TAB, Daily, Dosing Weight 122.045, kg, Start date: 08/23/20 9:00:00 CDT, Duration: 30 day, Stop date: 09/21/20 9:00:00 CDT, 0 Notes: (Same as: Tricor) Start Date: 08/23/20 Stop Date: 08/26/20 Status: DiscontinuedFlagyl 500 mg, 100 mL, Route: IVPB, Drug form: INJ, ABXQ8H, Dosing Weight 122.045, kg, Start date: 209:00:00 CDT, Duration: 5 day, Stop date: 08/29/20 1:00:00 CDT, ABX Indication: Intra-abdominal Infection, 0 Notes: (Same as: Flagyl) Avoid alcohol. Start Date: 08/24/20 Stop Date: 08/26/20 Status: DiscontinuedFlagyl 500 mg oral tablet 500 mg = 1 tab, PO, Q8H, X 3 day, # 9 tab, 0 Refill(s), Pharmacy: [facility] #[id number], 190.5, cm, 08/22/20 23:01:00 CDT, Height, 122.045, kg, 08/22/20 23:01:00 CDT, Weight Start Date: 08/26/20 Stop Date: 08/29/20 Status: Orderedfolic acid 1 mg, 1 tab, Route: PO, Drug form: TAB, Daily, Dosing Weight 122.045, kg, Start date: 08/23/20 9:00:00 CDT, Duration: 5 day, Stop date: 08/27/20 9:00:00 CDT, 0 Notes: (Same as: Folvite) Start Date: 08/23/20 Stop Date: 08/26/20 Status: Discontinuedfolic acid 1 mg oral tablet 1 mg = 1 tab, PO, Daily, # 30 tab, 0 Refill(s), Pharmacy: [facility] #[id number], 190.5, cm, 08/22/20 23:01:00 CDT, Height, 122.045, kg, 08/22/20 23:01:00 CDT, Weight Start Date: 08/26/20 Status: Orderedglucagon 1 mg, Route: IM, Drug form: PDR/INJ, PRN, Dosing Weight 122.045, kg, PRN Blood Glucose Results, Start date: 08/22/20 23:10:00 CDT, Duration: 30 day, Stop date: 09/21/20 23:09:00 CDT, 0 Start Date: 08/22/20 Stop Date: 08/26/20 Status: DiscontinuedHaldol 2 mg, 0.4 mL, Route: IV, Drug form: INJ, ONCE, Dosing Weight 122.045, kg, PRN Hiccups, Start date: 08/24/20 16:03:00 CDT, 0 Notes: (Same as: Haldol) Start Date: 08/24/20 Stop Date: 08/24/20 Status: Completedlabetalol 200 mg, 2 tab, Route: PO, Drug form: TAB, Q8Hnow, Dosing Weight 122.045, kg, Start date: 08/25/20 10:00:00 CDT, Duration: 30 day, Stop date: 09/24/20 2:00:00 REGULATORY AND COMPLIANCE TECHNICIAN, 0 Notes: With food. (Same as:Trandate, Normodyne) Start Date: 08/25/20 Stop Date: 08/26/20 Status: Discontinuedlabetalol 10 mg, 2 mL, Route: IVP, Drug form: INJ, ONCE, Dosing Weight 122.045, kg, Start date: 08/23/20 20:41:00 CDT, Stop date: 08/23/20 20:41:00 CDT, 0 Notes: (Same as: Normodyne, Trandate)Push over 2 minutes Give bolus over 2-3 minutes. Start Date: 08/23/20 Stop Date: 08/24/20 Status: Completedlabetalol 100 mg oral tablet 100 mg = 1 tab, PO, TID, # 90 tab, 0 Refill(s), Pharmacy: [facility] #[id number], 190.5, cm, 08/22/20 23:01:00 CDT, Height, 122.045, kg, 08/22/20 23:01:00 CDT, Weight Start Date: 08/26/20 Stop Date: 09/25/20 Status: Orderedlactulose 10 g/15 mL oral syrup 13.3333 gm, 20 mL, Route: PO, Drug form: SYRP, ONCE, Dosing Weight 122.045, kg, Start date: 08/24/2016:03:00 CDT, Stop date: 08/24/20 16:03:00 CDT, 0 Notes: (Same as:Chronulac) Start Date: 08/24/20 Stop Date: 08/24/20 Status: Completedlisinopril 10 mg, 1 tab, Route: PO, Drug form: TAB, Q24H, Dosing Weight 122.045, kg, Start date: 08/25/20 12:00:00 CDT, Duration: 30 day, Stop date: 09/23/20 12:00:00 REGULATORY AND COMPLIANCE TECHNICIAN, 0 Notes: (Same as: Prinivil, Zestril) Start Date: 08/25/20 Stop Date: 08/26/20 Status: Discontinuedlisinopril 10 mg oral tablet 10 mg = 1 tab, PO, Daily, # 30 tab, 0 Refill(s) Start Date: 08/22/20 Status: OrderedLORazepam 2 mg, 1 mL, Route: IVP, Drug form: INJ, Q2H, Dosing Weight 122.045, kg, PRN Withdrawal, CIWA Score 8-14, Start date: 08/23/20 8:14:00 CDT, Duration: 30 day, Stop date: 09/22/20 8:13:00 CDT, 0 Notes: (Same as: Ativan) Start Date: 08/23/20 Stop Date: 08/26/20 Status: DiscontinuedLovenox 40 mg, 0.4 mL, Route: SUB-Q, Drug form: INJ, [id number], Dosing Weight 122.045, kg, Start date: 08/23/20 8:00:00 CDT, Duration: 30 day, Stop date: 09/21/20 8:00:00 CDT, 0 Notes: (Same as: Lovenox) Start Date: 08/23/20 Stop Date: 08/26/20 Status: Discontinuedmagnesium oxide 800 mg, 2 tab, Route: PO, Drug form: TAB, PRN, Dosing Weight 122.045, kg, PRN Abnormal Lab Result, For NON-ICU Patients Only., Start date: 08/25/20 11:35:00 CDT, Duration: 30 day, Stop date: 09/24/20 10:34:00 REGULATORY AND COMPLIANCE TECHNICIAN, 0 Notes: (Same as: Mag-Ox 400)Magnesium oxide [id number] elemental magnesiumDose=____mg magnesium oxide (___mg elemental magnesium) Start Date: 08/25/20 Stop Date: 08/26/20 Status: Discontinuedmagnesium sulfate 1 gm, 100 mL, Route: IVPB, Drug form: INJ, PRN, Dosing Weight 122.045, kg, PRN Abnormal Lab Result, For NON-ICU Patients Only., Start date: 08/25/20 11:35:00 CDT, Duration: 30 day, Stop date: 09/24/20 10:34:00 REGULATORY AND COMPLIANCE TECHNICIAN, 0 Notes: WASTE: F/P - Sink; E - Municipal Trash Bin Start Date: 08/25/20 Stop Date: 08/26/20 Status: Discontinuedmagnesium sulfate 2 gm, 50 mL, Route: IVPB, Drug form: INJ, PRN, Dosing Weight 122.045, kg, PRN Abnormal Lab Result, For NON-ICU Patients Only., Start date: 08/25/20 11:35:00 CDT, Duration: 30 day, Stop date: 09/24/20 10:34:00 REGULATORY AND COMPLIANCE TECHNICIAN, 0 Notes: WASTE: F/P - Sink; E - Municipal Trash Bin Start Date: 08/25/20 Stop Date: 08/26/20 Status: Discontinuedmeropenem + Sodium Chloride 0.9% IV 100 mL 500 mg, Route: IV, ABXQ8H, Dosing Weight 122.045, kg, Start date: 08/23/20 8:00:00 CDT, Duration: 30day, Stop date: 09/22/20 0:00:00 CDT, ABX Indication: Bacteremia, 0 Notes: Same as Merrem Start Date: 08/23/20 Stop Date: 08/24/20 Status: Discontinuedmetoprolol 5 mg/5 ml INJ 5 mg, 5 mL, Route: IV, Drug form: INJ, ONCE, Dosing Weight 122.045, kg, Start date: 08/23/20 2:07:00CDT, Stop date: 08/23/20 2:07:00 CDT, 0 Notes: (Same as: Lopressor)Push over 2 minutes Start Date: 08/23/20 Stop Date: 08/23/20 Status: Completedmultivitamin 1 tab, Route: PO, Drug Form: TAB, Dosing Weight 122.045, kg, Daily, Start date: 08/23/20 9:00:00 CDT, Duration: 5 day, Stop date: 08/27/20 9:00:00 CDT, 0 Notes: (Same as:Thera)WASTE: F/P - Black; E - Municipal Trash Bin Take with food. Start Date: 08/23/20 Stop Date: 08/23/20 Status: Deletedmultivitamin with minerals 1 tab, Route: PO, Drug Form: TAB, Daily, Start date: 08/23/20 9:00:00 CDT, Duration: 30 day, Stop date: 09/21/20 9:00:00 CDT, 0 Notes: (Same as:Thera-M, Theragran-M)WASTE: F/P - Black; E - Municipal Trash Bin Give with food. Start Date: 08/23/20 Stop Date: 08/26/20 Status: DiscontinuedNS (Bolus) IV 1,000 mL, 1,000 ml/hr, Infuse Over: 1 hr, Route: IV, 1,000, Drug form: INJ, ONCE, Priority: STAT, Dosing Weight 122.045 kg, Start date: 08/22/20 23:14:00 CDT, Stop date: 08/22/20 23:14:00 CDT, 0 Start Date: 08/22/20 Stop Date: 08/22/20 Status: CompletedNS 1,000 mL 1,000 mL, Rate: 100 ml/hr, Infuse over: 10 hr, Route: IV, Dosing Weight 122.045 kg, Total Volume: 1,000, Start date: 08/22/20 23:11:00 CDT, Duration: 30 day, Stop date: 09/21/20 23:10:00 CDT, 2.56, m2,0 Start Date: 08/22/20 Stop Date: 08/26/20 Status: Discontinuedomega-3 polyunsaturated fatty acids 1 gm, 1 cap, Route: PO, Drug form: CAP, BID, Dosing Weight 122.045, kg, Start date: 08/23/20 9:00:00CDT, Duration: 30 day, Stop date: 09/21/20 17:00:00 CDT, 0 Notes: (Same as: Ezequiel, formally named Omacor)"Do Not Crush" Start Date: 08/23/20 Stop Date: 08/26/20 Status: Discontinuedomega-3 polyunsaturated fatty acids 1000 mg oral capsule 1 gm = 1 cap, PO, BID, # 60 cap, 0 Refill(s), Pharmacy: [facility] #[id number], 190.5, cm, 08/22/20 23:01:00 CDT, Height, 122.045, kg, 08/22/20 23:01:00 CDT, Weight Start Date: 08/26/20 Stop Date: 09/25/20 Status: Orderedondansetron 4 mg, 2 mL, Route: IVP, Drug form: INJ, Q8H, Dosing Weight 122.045, kg, PRN Nausea & Vomiting, Start date: 08/22/20 23:10:00 CDT, Duration: 30 day, Stop date: 09/21/20 23:09:00 CDT, 0 Notes: (Same as: Sandy) MEDICATION WASTE Product Size: 4 mgProduct Wasted: ___ mg Start Date: 08/22/20 Stop Date: 08/26/20 Status: DiscontinuedPepcid 20 mg oral tablet 20 mg, 1 tab, Route: PO, Drug form: TAB, Q12H, Dosing Weight 122.045, kg, Start date: 08/23/20 21:00:00 CDT, Duration: 30 day, Stop date: 09/22/20 9:00:00 CDT, 0 Notes: (Same as: Pepcid) Start Date: 08/23/20 Stop Date: 08/26/20 Status: DiscontinuedPepcid 20 mg oral tablet 20 mg = 1 tab, PO, Q12H, # 14 tab, 0 Refill(s), Pharmacy: [facility] #[id number], 190.5, cm, 08/22/20 23:01:00 CDT, Height, 122.045, kg, 08/22/20 23:01:00 CDT, Weight Start Date: 08/26/20 Stop Date: 09/02/20 Status: OrderedPhenergan 12.5 mg, Route: IVPB, Q4H, Dosing Weight 122.045, kg, PRN Nausea & Vomiting, Start date: 08/23/20 8:13:00 CDT, Duration: 30 day, Stop date: 09/22/20 8:12:00 CDT Start Date: 08/23/20 Stop Date: 08/23/20 Status: Discontinuedpotassium chloride 20 mEq, 1 tab, Route: PO, Drug form: ERTAB, PRN, Dosing Weight 122.045, kg, PRN Abnormal Lab Result,For NON-ICU Patients Only, Start date: 08/25/20 11:35:00 CDT, Duration: 30 day, Stop date: 09/24/20 10:34:00 REGULATORY AND COMPLIANCE TECHNICIAN, 0 Notes: (Same as: K-Dur )"Do Not Crush" Give with food and full glass of waterFor patients unable to swallow tablet, dissolve in one half glass of water. Allow about 2 minutes for the tablets to disintegrate. Stir before giving to prepare slurry and administer.Please exclude Patients with feedingtube less than 14 [place] (Dobhoff, J-tube etc) and pediatric and patients. Start Date: 08/25/20 Stop Date: 08/26/20 Status: Discontinuedpotassium chloride 20 mEq, 15 mL, Route: NJ, Drug form: LIQ, PRN, Dosing Weight 122.045, kg, PRN Abnormal Lab Result, For NON-ICU Patients Only, Start date: 08/25/20 11:35:00 CDT, Duration: 30 day, Stop date: 09/24/20 10:34:00 REGULATORY AND COMPLIANCE TECHNICIAN, 0 Notes: (Same as: Potassium Chloride) Start Date: 08/25/20 Stop Date: 08/26/20 Status: Discontinuedpotassium chloride 10 mEq, 100 mL, Route: IVPB, Drug form: INJ, PRN, Dosing Weight 122.045, kg, PRN Abnormal Lab Result, For NON-ICU Patients Only, Start date: 08/25/20 11:35:00 CDT, Duration: 30 day, Stop date: 09/24/2010:34:00 REGULATORY AND COMPLIANCE TECHNICIAN, 0 Notes: Infuse at a rate of 10 mEq/hr.(Same as: KCL) Start Date: 08/25/20 Stop Date: 08/26/20 Status: Discontinuedpotassium chloride 20 mEq/15 mL oral liquid (KCL) 40 mEq, 30 mL, Route: PO, Drug form: LIQ, ONCE, Dosing Weight 122.045, kg, Start date: 08/26/20 11:06:00 CDT, Stop date: 08/26/20 11:06:00 CDT, 0 Notes: (Same as: Potassium Chloride) Start Date: 08/26/20 Stop Date: 08/26/20 Status: Orderedpotassium chloride 20 mEq/15 mL oral liquid (KCL) 40 mEq, 30 mL, Route: PO, Drug form: LIQ, ONCE, Dosing Weight 122.045, kg, Start date: 08/25/20 11:34:00 CDT, Stop date: 08/25/20 11:34:00 CDT, 0 Notes: (Same as: Potassium Chloride) Start Date: 08/25/20 Stop Date: 08/25/20 Status: Completedpotassium phosphate + Sodium Chloride 0.9% IV 250 mL 15 mmol, 5 mL, Route: IVPB, PRN, Dosing Weight 122.045, kg, PRN Abnormal Lab Result, For NON-ICU Patients Only., Start date: 08/25/20 11:35:00 CDT, Duration: 30 day, Stop date: 09/24/20 10:34:00 REGULATORY AND COMPLIANCE TECHNICIAN, 0 Notes: (Same as: K Phosphate.)Do not infuse phosphorous concurrently in the same line as TPN or IVF that contains calcium. For double lumen central lines, phosphorous may be infused in a separate lumenfrom TPN. 1 mMol phoshate has 1.47 mEq potassium Infuse over 4 hours Start Date: 08/25/20 Stop Date: 08/26/20 Status: Discontinuedpotassium phosphate + Sodium Chloride 0.9% IV 250 mL 30 mmol, 10 mL, Route: IVPB, PRN, Dosing Weight 122.045, kg, PRN Abnormal Lab Result, For NON-ICU Patients Only., Start date: 08/25/20 11:35:00 CDT, Duration: 30 day, Stop date: 09/24/20 10:34:00 REGULATORY AND COMPLIANCE TECHNICIAN, 0 Notes: (Same as: K Phosphate.)Do not infuse phosphorous concurrently in the same line as TPN or IVF that contains calcium. For double lumen central lines, phosphorous may be infused in a separate lumenfrom TPN. 1 mMol phoshate has 1.47 mEq potassium Infuse over 4 hours Start Date: 08/25/20 Stop Date: 08/26/20 Status: Discontinuedpotassium phosphate-sodium phosphate 250 mg-280 mg-160 mg oral powder for reconstitution 2 pkt, Route: PO, Drug Form: PDR/REC, Dosing Weight 122.045, kg, PRN, PRN Abnormal Lab Result, For NON-ICU Patients Only, Start date: 08/25/20 11:35:00 CDT, Duration: 30 day, Stop date: 09/24/20 10:34:00 REGULATORY AND COMPLIANCE TECHNICIAN, 0 Notes: (Same as: Phos-NaK) Each 1.5 gm pkt has 250mg phosphorous. Mix w/2.5oz water and stir. Start Date: 08/25/20 Stop Date: 08/26/20 Status: DiscontinuedReglan 10 mg, 2 mL, Route: IVP, Drug form: INJ, Q6H, Dosing Weight 122.045, kg, PRN Nausea & Vomiting, Start date: 08/23/20 8:26:00 CDT, Duration: 30 day, Stop date: 09/22/20 8:25:00 CDT, 0 Notes: (Same as: Reglan) Start Date: 08/23/20 Stop Date: 08/26/20 Status: Discontinuedsodium phosphate + Dextrose 5% in Water IV 250 mL 15 mmol, 5 mL, Route: IVPB, PRN, Dosing Weight 122.045, kg, PRN Abnormal Lab Result, For NON-ICU Patients Only., Start date: 08/25/20 11:35:00 CDT, Duration: 30 day, Stop date: 09/24/20 10:34:00 REGULATORY AND COMPLIANCE TECHNICIAN, 0 Notes: Infuse over 4 hour. Do not infuse phosphorous concurrently in the same line as TPN or IVF that contains calcium. For double lumen central lines, phosphorous may be infused in a separate lumen from TPN. Start Date: 08/25/20 Stop Date: 08/26/20 Status: Discontinuedsodium phosphate + Dextrose 5% in Water IV 250 mL 30 mmol, 10 mL, Route: IVPB, PRN, Dosing Weight 122.045, kg, PRN Abnormal Lab Result, For NON-ICU Patients Only., Start date: 08/25/20 11:35:00 CDT, Duration: 30 day, Stop date: 09/24/20 10:34:00 REGULATORY AND COMPLIANCE TECHNICIAN, 0 Notes: Infuse over 4 hour. Do not infuse phosphorous concurrently in the same line as TPN or IVF that contains calcium. For double lumen central lines, phosphorous may be infused in a separate lumen from TPN. Start Date: 08/25/20 Stop Date: 08/26/20 Status: Discontinuedthiamine 100 mg, 1 tab, Route: PO, Drug form: TAB, Daily, Dosing Weight 122.045, kg, Start date: 08/23/20 9:00:00 CDT, Duration: 5 day, Stop date: 08/27/20 9:00:00 CDT, 0 Notes: (Same As: Vitamin B1) Start Date: 08/23/20 Stop Date: 08/26/20 Status: Discontinuedthiamine 100 mg oral tablet 100 mg = 1 tab, PO, Daily, X 30 day, # 30 tab, 0 Refill(s), Pharmacy: [facility] #[id number], 190.5, cm, 08/22/20 23:01:00 CDT, Height, 122.045, kg, 08/22/20 23:01:00 CDT, Weight Start Date: 08/26/20 Stop Date: 09/25/20 Status: Orderedtramadol 50 mg, 1 tab, Route: PO, Drug form: TAB, Q6H, Dosing Weight 122.045, kg, PRN Pain Score 4-6, Start date: 08/25/20 17:12:00 CDT, Duration: 30 day, Stop date: 09/24/20 17:11:00 REGULATORY AND COMPLIANCE TECHNICIAN, 0 Notes: Not to exceed 400mg/day. (Same As: Ultram) Start Date: 08/25/20 Stop Date: 08/26/20 Status: Discontinued Results Most recent to oldest 1 2 3 [Reference Range]: Neutrophils # [1.5-8.1 9.7 K/CMM 11.1 K/CMM 16.2 K/CM M K/CMM] *HI* *HI* *HI* (08/26/20 4:37 AM) (08/25/20 4:35 AM) (08/24/20 4:4 4 AM) Lymphocytes # [1.0-5.5 1.6 K/CMM 1.2 K/CMM 0.9 K/CMM K/CMM] (08/26/20 4:37 AM) (08/25/20 4:35 AM) *LOW* (08/24/20 4:44 AM ) Monocytes # [0.0-0.8 K/CMM] 1.5 K/CMM 1.3 K/CMM 1.4 K/CMM *HI* *HI* *HI* (08/26/20 4:37 AM) (08/25/20 4:35 AM) (08/24/20 4:4 4 AM) Eosinophils # [0.0-0.5 0.2 K/CMM K/CMM] (08/26/20 4:37 AM) Plt Morph [Normal] Normal (08/22/20 11:50 PM) eGFR 131 mL/min/1.73m2 1 132 mL/min/1.73m2 2 120 mL/m in/1.73m2 3 *NA* *NA* *NA* (08/26/20 4:37 AM) (08/25/20 4:35 AM) (08/24/20 4:4 4 AM) A/G Ratio [0.7-1.6] 0.6 0.6 0.7 *LOW* *LOW* (08/24/20 4:44 AM ) (08/26/20 4:37 AM) (08/25/20 4:35 AM) Albumin Lvl [3.5-5.0 g/dL] 2.3 g/dL 2.5 g/dL 2.7 g /dL *LOW* *LOW* *LOW* (08/26/20 4:37 AM) (08/25/20 4:35 AM) (08/24/20 4:4 4 AM) Alk Phos [39-136 unit/L] 85 unit/L 81 unit/L 68 unit /L (08/26/20 4:37 AM) (08/25/20 4:35 AM) (08/24/20 4:4 4 AM) ALT [0-65 unit/L] 76 unit/L 61 unit/L 76 unit/L *HI* (08/25/20 4:35 AM) *HI* (08/26/20 4:37 AM) (08/24/20 4:44 AM) AGAP [10.0-20.0 mEq/L] 12.1 mEq/L 12.4 mEq/L 13.4 mEq/ L (08/26/20 4:37 AM) (08/25/20 4:35 AM) (08/24/20 4:4 4 AM) AST [0-37 unit/L] 86 unit/L 59 unit/L 68 unit/L *HI* *HI* *HI* (08/26/20 4:37 AM) (08/25/20 4:35 AM) (08/24/20 4:4 4 AM) B/C Ratio [6-25] 12 12 14 (08/26/20 4:37 AM) (08/25/20 4:35 AM) (08/24/20 4:4 4 AM) Basophils [0.0-1.0 %] 0.2 % 0.2 % 0.2 % (08/26/20 4:37 AM) (08/25/20 4:35 AM) (08/24/20 4:4 4 AM) BUN [7-22 mg/dL] 8 mg/dL 8 mg/dL 11 mg/dL (08/26/20 4:37 AM) (08/25/20 4:35 AM) (08/24/20 4:4 4 AM) Calcium Lvl [8.5-10.5 8.2 mg/dL 7.9 mg/dL 8.0 mg/dL mg/dL] *LOW* *LOW* *LOW* (08/26/20 4:37 AM) (08/25/20 4:35 AM) (08/24/20 4:4 4 AM) CHD Risk [4.00-7.30] 6.21 (08/22/20 11:50 PM) Chol [<=199 mg/dL] 174 mg/dL (08/22/20 11:50 PM) Chloride Lvl [95-109 mEq/L] 102 mEq/L 100 mEq/L 103 mEq/L (08/26/20 4:37 AM) (08/25/20 4:35 AM) (08/24/20 4:4 4 AM) CO2 [24-32 mEq/L] 26 mEq/L 25 mEq/L 24 mEq/L (08/26/20 4:37 AM) (08/25/20 4:35 AM) (08/24/20 4:4 4 AM) Creatinine Lvl [0.50-1.40 0.65 mg/dL 0.64 mg/dL 0.80 m g/dL mg/dL] (08/26/20 4:37 AM) (08/25/20 4:35 AM) (08/24/20 4:4 4 AM) Eosinophils [0.0-4.0 %] 1.6 % 0.2 % (08/26/20 4:37 AM) (08/25/20 4:35 AM) Globulin [2.7-4.2 g/dL] 4.1 g/dL 4.2 g/dL 3.8 g/dL (08/26/20 4:37 AM) (08/25/20 4:35 AM) (08/24/20 4:4 4 AM) Glucose Lvl [70-99 mg/dL] 106 mg/dL 97 mg/dL 122 mg /dL *HI* (08/25/20 4:35 AM) *HI* (08/26/20 4:37 AM) (08/24/20 4:44 AM) Hct [42.0-54.0 %] 33.6 % 34.4 % 38.7 % *LOW* *LOW* *LOW* (08/26/20 4:37 AM) (08/25/20 4:35 AM) (08/24/20 4:4 4 AM) HDL [>=61 mg/dL] 28 mg/dL *LOW* (08/22/20 11:50 PM) Hgb [14.0-18.0 g/dL] 11.5 g/dL 12.1 g/dL 13.5 g/dL *LOW* *LOW* *LOW* (08/26/20 4:37 AM) (08/25/20 4:35 AM) (08/24/20 4:4 4 AM) Potassium Lvl [3.5-5.1 3.1 mEq/L 3.4 mEq/L 3.4 mEq/L mEq/L] *LOW* *LOW* *LOW* (08/26/20 4:37 AM) (08/25/20 4:35 AM) (08/24/20 4:4 4 AM) Lactic Acid Lvl [0.5-2.2 1.5 mMol/L mMol/L] (08/23/20 9:13 PM) LDL (Calculated) [<=99 See Note mg/dL 4 mg/dL] *NA* (08/22/20 11:50 PM) Lipase Lvl [73-393 unit/L] 5025 unit/L *HI* (08/22/20 11:50 PM) Lymphocytes [20.0-40.0 %] 12.0 % 8.6 % 4.9 % *LOW* *LOW* *LOW* (08/26/20 4:37 AM) (08/25/20 4:35 AM) (08/24/20 4:4 4 AM) MCH [27.0-31.0 pg] 34.2 pg 34.9 pg 34.5 pg *HI* *HI* *HI* (08/26/20 4:37 AM) (08/25/20 4:35 AM) (08/24/20 4:4 4 AM) MCHC [32.0-36.0 g/dL] 34.3 g/dL 35.1 g/dL 34.9 g/dL (08/26/20 4:37 AM) (08/25/20 4:35 AM) (08/24/20 4:4 4 AM) MCV [80.0-94.0 fL] 99.7 fL 99.3 fL 99.0 fL *HI* *HI* *HI* (08/26/20 4:37 AM) (08/25/20 4:35 AM) (08/24/20 4:4 4 AM) Monocytes [2.0-12.0 %] 11.7 % 9.7 % 7.7 % (08/26/20 4:37 AM) (08/25/20 4:35 AM) (08/24/20 4:4 4 AM) MPV [7.4-10.4 fL] 7.2 fL 7.4 fL 7.5 fL *LOW* (08/25/20 4:35 AM) (08/24/20 4:44 AM) (08/26/20 4:37 AM) Sodium Lvl [135-145 mEq/L] 137 mEq/L 134 mEq/L 137 m Eq/L (08/26/20 4:37 AM) *LOW* (08/24/20 4:44 AM) (08/25/20 4:35 AM) Platelet [133-450 K/CMM] 175 K/CMM 143 K/CMM 155 K/C MM (08/26/20 4:37 AM) (08/25/20 4:35 AM) (08/24/20 4:4 4 AM) Segs [45.0-75.0 %] 74.5 % 81.3 % 87.2 % (08/26/20 4:37 AM) *HI* *HI* (08/25/20 4:35 AM) (08/24/20 4:44 AM) Total Protein [6.4-8.4 6.4 g/dL 6.7 g/dL 6.5 g/dL g/dL] (08/26/20 4:37 AM) (08/25/20 4:35 AM) (08/24/20 4:4 4 AM) Coronavirus (COVID-19) DANIS Not Detected [Not Detected] (08/23/20 5:58 AM) RBC [4.70-6.10 M/CMM] 3.37 M/CMM 3.46 M/CMM 3.91 M/CMM *LOW* *LOW* *LOW* (08/26/20 4:37 AM) (08/25/20 4:35 AM) (08/24/20 4:4 4 AM) RBC Morph [Normal] Normal (08/22/20 11:50 PM) RDW [11.5-14.5 %] 13.2 % 12.9 % 13.5 % (08/26/20 4:37 AM) (08/25/20 4:35 AM) (08/24/20 4:4 4 AM) Bili Total [0.2-1.3 mg/dL] 0.8 mg/dL 1.0 mg/dL 1.2 m g/dL (08/26/20 4:37 AM) (08/25/20 4:35 AM) (08/24/20 4:4 4 AM) Trig [<=149 mg/dL] 320 mg/dL 711 mg/dL *HI* *HI* (08/24/20 4:44 AM) (08/22/20 11:50 PM) WBC [3.7-10.4 K/CMM] 13.0 K/CMM 13.6 K/CMM 18.6 K/CMM *HI* *HI* *HI* (08/26/20 4:37 AM) (08/25/20 4:35 AM) (08/24/20 4:4 4 AM) VLDL See Note 5 *NA* (08/22/20 11:50 PM) 1Result Comment: The eGFR is calculated using the CKD-EPI formula. In most young, healthy individualsthe eGFR will be >90 mL/min/1.73m2. The eGFR declines with age. An eGFR of 60-89 may be normal insome populations, particularly the elderly, for whom the CKD-EPI formula has not been extensively validated. Use of the eGFR is not recommended in the following populations: Individuals with unstable creatinine concentrations, including patients and those with serious co-morbid conditions. Patients with extremes in muscle mass or diet. The data above are obtained from the National Kidney Disease Education Program (NKDEP) which additionally recommends that when the eGFR is used in patients with extremes of body mass index for purposesof drug dosing, the eGFR should be multiplied by the estimated BMI.2Result Comment: The eGFR is calculated using the CKD-EPI formula. In most young, healthy individualsthe eGFR will be >90 mL/min/1.73m2. The eGFR declines with age. An eGFR of 60-89 may be normal insome populations, particularly the elderly, for whom the CKD-EPI formula has not been extensively validated. Use of the eGFR is not recommended in the following populations: Individuals with unstable creatinine concentrations, including patients and those with serious co-morbid conditions. Patients with extremes in muscle mass or diet. The data above are obtained from the National Kidney Disease Education Program (NKDEP) which additionally recommends that when the eGFR is used in patients with extremes of body mass index for purposesof drug dosing, the eGFR should be multiplied by the estimated BMI.3Result Comment: The eGFR is calculated using the CKD-EPI formula. In most young, healthy individualsthe eGFR will be >90 mL/min/1.73m2. The eGFR declines with age. An eGFR of 60-89 may be normal insome populations, particularly the elderly, for whom the CKD-EPI formula has not been extensively validated. Use of the eGFR is not recommended in the following populations: Individuals with unstable creatinine concentrations, including patients and those with serious co-morbid conditions. Patients with extremes in muscle mass or diet. The data above are obtained from the National Kidney Disease Education Program (NKDEP) which additionally recommends that when the eGFR is used in patients with extremes of body mass index for purposesof drug dosing, the eGFR should be multiplied by the estimated BMI.4Result Comment: LDL cholesterol cannot be calculated due to very high triglycerides (>400 mg/dL).Recommend Direct LDL if clinically indicated.5Result Comment: VLDL - Cholesterol level cannot be accurately calculated due to very high triglycerides (>400 mg/dL). Immunizations No data available for this section Procedures No data available for this section Social History Social History Type Response Alcohol Current, Type Beer, Liquor. Frequency: Daily. Substance Abuse Use: Past. Type: Marijuana. Smoking Status Never smoker; Previous treat ment: None; Ready to change: No; Concerns about tobacco use in household: No; Exposure to Tobacco Smoke None; Cigarette Smoking Last 365 Days No; Reg Smoking Cessation Counseling No; Tob acco use per day: 0; Number of years: 0; Total pack years: 0; Started at age: 1.0; Stopped at age: 1; entered on: 08/22/20 Assessment and Plan Extracted from: Title: Progress Note Author: Jeff Isaacs MD Date: 08/25/20 1.Acute alcoholic pancreatit is(K85.20) Symptoms improving Advance diet 2.Sepsis(A41.9) Likely intra-abdominal etiology from acute pancreatitis On Cipro and Flagyl 3.Alcohol abuse(F10.10) Counseled On [facility] protocol Librium 4.Hypertriglyceridemia(E78.1) Continue current treatment 5.LFTs abnormal(R94.5) Likely secondary to fatty liver 6.Obesity(E66.9) Counseled 7.HTN (hypertension)(I10) Uncontrolled Added clonidine, labetalol, lisinopril lovenox Likely home in AM
--- OUTSIDE RECORDS SUMMARY | 2020-11-22 16:44 | XMS REPORT | Summary of Care ---
:1990 Author Organization [facility] spital Address [id number] [place] [id number] Encounter HQ Encntr_angelita(FIN) [id number] Date(s): 08/22/20 - 08/26/[address] [phone] Encounter Diagnosis Acute pancreatitis with uninfected necrosis, [...] day, # 24 tab, 0 Refill(s), [id number], 190.5, cm, 08/22/20 23:01:00 CDT, Height, 122.045, kg, 08/22/20 23:01:00 CDT, Weight Start Date: 08/26/20 Stop Date: 09/02/20 Status: Orderedcalcium gluconate + Sodium Chloride 0.9% IV 100 mL 2 gm, 20 mL, Route: IVPB, PRN, Dosing Weight 122.045, kg, PRN Abnormal Lab Result, For NON-ICU Patients Only., Start date: 08/25/20 11:35:00 CDT, Duration: 30 day, Stop date: 09/24/20 10:34:00 [employer] EM[employer]EE, 0 Notes: WASTE: F/P - Sink; E - [employer] Trash [employer] Start Date: 08/25/20 Stop Date: 08/26/20 Status: Discontinuedcalcium gluconate + Sodium Chloride 0.9% IV 100 mL 3 gm, 30 mL, Route: IVPB, PRN, Dosing Weight 122.045, kg, PRN Abnormal Lab Result, For NON-ICU Patients Only., Start date: 08/25/20 11:35:00 CDT, Duration: 30 day, Stop date: 09/24/20 10:34:00 [employer] EMPLOYEE, 0 Notes: WASTE: F/P - Sink; E - [employer] Trash Bin Start Date: 08/25/20 Stop Date: 08/26/20 Status: DiscontinuedchlordiazePOXIDE 10 mg oral capsule (Librium) 10 mg = 1 cap, PO, QID, X 3 day, # 12 cap, 0 Refill(s), Pharmacy: [facility] #[id number], 190.5, cm, 08/22/20 23:01:00 CDT, Height, 122.045, [...] 200 mL, Route: IVPB, Drug form: INJ, [id number], Dosing Weight 122.045, kg, Start date: 08/24/20 9:00:00 CDT, Duration: 5 day, Stop date: 08/28/20 21:00:00 CDT, ABX Indication: Intra-abdominal Infection, 0 Notes: Do not refrigerate Start Date: 08/24/20 Stop Date: 08/26/20 Status: Discontinuedciprofloxacin 500 mg oral tablet 500 mg = 1 tab, PO, Q12H, for UTI, X 3 day, # 6 tab, 0 Refill(s), Pharmacy: [facility] #[id number], 190.5, cm, 08/22/20 23:01:00 CDT, Height, 122.045, [...] before application of new patch" (Same As: [id number]) Start Date: 08/23/20 Stop Date: 08/26/20 Status: [...] Daily, # 30 tab, 0 Refill(s), Pharmacy: [facility] #[id number], 190.5, cm, 08/22/20 23:01:00 CDT, Height, 122.045, [...] day, # 9 tab, 0 Refill(s), Pharmacy: [facility] #[id number], 190.5, cm, 08/22/20 23:01:00 CDT, Height, 122.045, [...] Daily, # 30 tab, 0 Refill(s), Pharmacy: [facility] #[id number], 190.5, cm, 08/22/20 23:01:00 CDT, Height, 122.045, [...] Duration: 30 day, Stop date: 09/24/20 2:00:00 [employer] EMPLOYEE, 0 Notes: With food. (Same as:Trandate, Normodyne) [...] TID, # 90 tab, 0 Refill(s), Pharmacy: [facility] #[id number], 190.5, cm, 08/22/20 23:01:00 CDT, Height, 122.045, [...] Duration: 30 day, Stop date: 09/23/20 12:00:00 [employer] EM[employer]EE, 0 Notes: (Same as: Prinivil, Zestril) Start [...] 0.4 mL, Route: SUB-Q, Drug form: INJ, [id number], Dosing Weight 122.045, kg, Start date: 08/23/20 [...] Duration: 30 day, Stop date: 09/24/20 10:34:00 [employer] EM[employer]EE, 0 Notes: (Same as: Mag-Ox 400)Magnesium oxide 745am=562bv elemental magnesiumDose=____mg magnesium oxide (___mg elemental magnesium) Start Date: 08/25/20 Stop Date: 08/26/20 Status: Discontinuedmagnesium sulfate 1 gm, 100 mL, Route: IVPB, Drug form: INJ, PRN, Dosing Weight 122.045, kg, PRN Abnormal Lab Result, For NON-ICU Patients Only., Start date: 08/25/20 11:35:00 CDT, Duration: 30 day, Stop date: 09/24/20 10:34:00 [employer] EM[employer]EE, 0 Notes: WASTE: F/P - Sink; E - Municipal Trash Bin Start Date: 08/25/20 Stop Date: 08/26/20 Status: Discontinuedmagnesium sulfate 2 gm, 50 mL, Route: IVPB, Drug form: INJ, PRN, Dosing Weight 122.045, kg, PRN Abnormal Lab Result, For NON-ICU Patients Only., Start date: 08/25/20 11:35:00 CDT, Duration: 30 day, Stop date: 09/24/20 10:34:00 [employer] EMPL[employer]EE, 0 Notes: WASTE: F/P - Sink; E [...] BID, # 60 cap, 0 Refill(s), Pharmacy: [facility] #[id number], 190.5, cm, 08/22/20 23:01:00 CDT, Height, 122.045, [...] Q12H, # 14 tab, 0 Refill(s), Pharmacy: [facility] #[id number], 190.5, cm, 08/22/20 23:01:00 CDT, Height, 122.045, [...] Duration: 30 day, Stop date: 09/24/20 10:34:00 [employer] EM[employer]EE, 0 Notes: (Same as: K-Dur )"Do Not Crush" Give with food and full glass of waterFor patients unable to swallow tablet, dissolve in one half glass of water. Allow about 2 minutes for the tablets to disintegrate. Stir before giving to prepare slurry and administer.Please exclude Patients with feedingtube less than 14 German (Dobhoff, J-tube etc) and pediatric and patients. Start Date: 08/25/20 Stop Date: 08/26/20 Status: Discontinuedpotassium chloride 20 mEq, 15 mL, Route: NJ, Drug form: LIQ, PRN, Dosing Weight 122.045, kg, PRN Abnormal Lab Result, For NON-ICU Patients Only, Start date: 08/25/20 11:35:00 CDT, Duration: 30 day, Stop date: 09/24/20 10:34:00 [employer] EMPL[employer]EE, 0 Notes: (Same as: Potassium Chloride) Start Date: 08/25/20 Stop Date: 08/26/20 Status: Discontinuedpotassium chloride 10 mEq, 100 mL, Route: IVPB, Drug form: INJ, PRN, Dosing Weight 122.045, kg, PRN Abnormal Lab Result, For NON-ICU Patients Only, Start date: 08/25/20 11:35:00 CDT, Duration: 30 day, Stop date: 09/24/2010:34:00 [employer] EM[employer]EE, 0 Notes: Infuse at a rate of [...] Duration: 30 day, Stop date: 09/24/20 10:34:00 [employer] EMPL[employer]EE, 0 Notes: (Same as: K Phosphate.)Do not [...] Duration: 30 day, Stop date: 09/24/20 10:34:00 [employer] EMPLOYEE, 0 Notes: (Same as: K Phosphate.)Do not [...] Duration: 30 day, Stop date: 09/24/20 10:34:00 [employer] EMPLOYEE, 0 Notes: (Same as: Phos-NaK) Each 1.5 [...] Duration: 30 day, Stop date: 09/24/20 10:34:00 [employer] EMPLOYEE, 0 Notes: Infuse over 4 hour. Do [...] Duration: 30 day, Stop date: 09/24/20 10:34:00 [employer] EMPL[employer]EE, 0 Notes: Infuse over 4 hour. Do [...] day, # 30 tab, 0 Refill(s), Pharmacy: [facility] #[id number], 190.5, cm, 08/22/20 23:01:00 CDT, Height, 122.045, kg, 08/22/20 23:01:00 CDT, Weight Start Date: 08/26/20 Stop Date: 09/25/20 Status: Orderedtramadol 50 mg, 1 tab, Route: PO, Drug form: TAB, Q6H, Dosing Weight 122.045, kg, PRN Pain Score 4-6, Start date: 08/25/20 17:12:00 CDT, Duration: 30 day, Stop date: 09/24/20 17:11:00 [employer] EM[employer]EE, 0 Notes: Not to exceed 400mg/day. (Same [...] Cipro and Flagyl 3.Alcohol abuse(F10.10) Counseled On [facility] protocol Librium 4.Hypertriglyceridemia(E78.1) Continue current treatment 5.LFTs abnormal(R94.5) Likely secondary to fatty liver 6.Obesity(E66.9) Counseled 7.HTN (hypertension)(I10) Uncontrolled Added clonidine, labetalol, lisinopril lovenox Likely home in AM
--- OUTSIDE RECORDS SUMMARY | 2020-11-22 16:45 | XMS REPORT | Continuity of Care Document ---
:1990 Author Organization [facility] t Address [address] [place] [address] Care Team Providers Name Role Phone Shital Attending Clinician Shital Admitting Clinician Problems Condition Condition Condition Status Onset Resolution Last Treating Co mments Source Name Details Category Date Date Treatment Clinician Date PANCREATIT Diagnosis Active 2020-08-22 Memoria IS 08-22 22:44:00 l 00:00: Per PANCREATIT 00 [facility] 0 [facility] ACUTE Diagnosis Active 2020-08-27 Mem oria ALCOHOLIC 08-22 09:42:00 l PANCREATIT ACUTE 00:00: Sharita nn IS ALCOHOLIC 00 PANCREAT[address] IS Active 0 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 ACUTE Diagnosis Active 2020-08-22 Mem oria PANCREATIT 22:44:00 l IS WITH ACUTE Per UNINFECTED PANCREATIT NECRO IS WITH UNINFECTED NECRO Active [facility] Allergies, Adverse Reactions, Alerts Allergy Allergy Status Severity Reaction(s) Onset Inactive Treating Comm ents Source Name Type Date Date Clinician sulfa sulfa Active Memoria drugs drugs l Per Social History Social Habit Start Date Stop Date Quantity Comments Source Social History 2020-08-23 2020-08-23 [facility] ermann 04:06:38 04:06:38 Medications Ordered Filled Start Stop Current Ordering Indication Dosage Frequency Signature Comments Components Source Medication Medication Date Date Medication? Clinician (SIG) Name Name Fenofibrate 2019-11 Yes 145 mg = 1 Memoria 145 MG Oral 0-04 tab, PO, l Tablet 16:30: Daily, # Per 00 30 tab, 0 Refill(s), [id number], 190.5, cm, 08/22/20 23:01:00 CDT, Height, 122.045, kg, 08/22/20 23:01:00 CDT, Weight omega-3 2019-11 Yes 1 gm = 1 Memori a polyunsatur 0-04 cap, PO, l ated fatty 16:30: BID, # 60 He rmann acids 1000 00 cap, 0 mg oral Refill(s), [id number], 190.5, cm, 08/22/20 23:01:00 CDT, Height, 122.045, kg, 08/22/20 23:01:00 CDT, Weight ciprofloxac 2019-11 Yes 500 mg = 1 Memoria in 500 mg 0-04 tab, PO, l oral tablet 16:26: Q12H, for H ermann 00 UTI, X 3 day, # 6 tab, 0 Refill(s), [id number], 190.5, cm, 08/22/20 23:01:00 CDT, Height, 122.045, kg, 08/22/20 23:01:00 CDT, Weight Metronidazo 2019-11 Yes 500 mg = 1 Memoria le 500 MG 0-04 tab, PO, l Oral Tablet 16:26: Q8H, X 3 He rmann [Flagyl] 00 day, # 9 tab, 0 Refill(s), Pharmacy: [facility] #[id number], 190.5, cm, 08/22/20 23:01:00 CDT, Height, 122.045, kg, 08/22/20 23:01:00 CDT, Weight thiamine 2019-11 Yes 100 mg = 1 Mem oria 100 mg oral 0-04 tab, PO, l tablet 16:26: Daily, X [place] 00 30 day, # 30 tab, 0 Refill(s), Pharmacy: [facility] #[id number], 190.5, cm, 08/22/20 23:01:00 CDT, Height, 122.045, kg, 08/22/20 23:01:00 CDT, Weight Folic Acid 2019-11 Yes 1 mg = 1 Mem oria 1 MG Oral 0-04 tab, PO, l Tablet 16:26: Daily, # Per 00 30 tab, 0 Refill(s), Pharmacy: [facility] #[id number], 190.5, cm, 08/22/20 23:01:00 CDT, Height, 122.045, kg, 08/22/20 23:01:00 CDT, Weight Chlordiazep 2019-11 Yes 10 mg = 1 M emoria oxide 0-04 cap, PO, l Hydrochlori 16:26: QID, X 3 He rmann de 10 MG 00 day, # 12 Oral cap, 0 Capsule Refill(s), Pharmacy: [facility] #[id number], 190.5, cm, 08/22/20 23:01:00 CDT, Height, 122.045, kg, 08/22/20 23:01:00 CDT, Weight Lorazepam 1 2019-11 Yes 1 mg = 1 Me moria MG Oral 0-04 tab, PO, l Tablet 16:26: TID, PRN Per [Ativan] 00 as needed for anxiety, X 7 day, # 24 tab, 0 Refill(s), Pharmacy: [facility] #[id number], 190.5, cm, 08/22/20 23:01:00 CDT, Height, 122.045, kg, 08/22/20 23:01:00 CDT, Weight Famotidine 2019-11 Yes 20 mg = 1 Me moria 20 MG Oral 0-04 tab, PO, l Tablet 16:26: Q12H, # 14 Sharita nn [Pepcid] 00 tab, 0 Refill(s), Pharmacy: [facility] #[id number], 190.5, cm, 08/22/20 23:01:00 CDT, Height, 122.045, kg, 08/22/20 23:01:00 CDT, Weight labetalol 2019-11 Yes 100 mg = 1 Me moria 100 mg oral 0-04 tab, PO, l tablet 16:26: TID, # 90 Bakari n 00 tab, 0 Refill(s), Pharmacy: [facility] #[id number], 190.5, cm, 08/22/20 23:01:00 CDT, Height, 122.045, kg, 08/22/20 23:01:00 CDT, Weight Potassium 2019-11 Yes Notes: Memori a Chloride 0-04 (Same as: l 1.33 MEQ/ML 16:06: Potassium H ermann Oral 00 Chloride) Solution Tramadol 2019-11 No Notes: Not Mem oria 0-03 to exceed l 22:12: 400mg/day. Per 00 (Same As: Ultram) Lisinopril 2019-11 No Notes: Memor ia 0-03 (Same as: l 17:00: Prinivil, Per 00 Zestril) Potassium 2019-11 No Notes: Memori a Chloride 0-03 (Same as: l 16:35: K-Dur 20) Per 00 "Do Not Crush" Give with food and full glass of water For patients unable to swallow tablet, dissolve in one half glass of water. Allow about 2 minutes for the tablets to disintegra te. Stir before giving to prepare slurry and administer . Please exclude Patient s with feeding tube less than 14 Indian (Dobhoff, J-tube etc) and pediatric and patients. potassium 2019-11 No Notes: Memori a phosphate-s 0-03 (Same as: l odium 16:35: Phos-NaK) Per phosphate 00 Each 1.5 250 mg-280 gm pkt has mg-160 mg 250mg oral powder phosphorou for s. Mix reconstitut w/2.5oz ion water and stir. potassium 2019-11 No Notes: Memori a phosphate 0-03 (Same as: l 16:35: K Per 00 Phosphate. ) Do not infuse phosphorou s concurrent ly in the same line as TPN or IVF that contains calcium. For double lumen central lines, phosphorou s may be infused in a separate lumen from TPN. 1 mMol phoshate has 1.47 mEq potassium Infuse over 4 hours sodium 2019-11 No Notes: Memoria phosphate 0-03 Infuse l 16:35: over 4 Per 00 hour. Do not infuse phosphorou s concurrent ly in the same line as TPN or IVF that contains calcium. For double lumen central lines, phosphorou s may be infused in a separate lumen from TPN. Magnesium 2019-11 No Notes: Memori a Sulfate 0-03 WASTE: F/P l 16:35: - Sink; E Per 00 - Municipal Trash Bin Magnesium 2019-11 No Notes: Memori a Oxide 0-03 (Same as: l 16:35: Mag-Ox Per 00 400) Magnesium oxide 250kr=594k g elemental magnesium Dose=____m g magnesium oxide (___mg elemental magnesium) Calcium 2019-11 No Notes: Memoria Gluconate 0-03 WASTE: F/P l 16:35: - Sink; E Per 00 - Municipal Trash Bin Potassium 2019-11 No Notes: Memori a Chloride 0-03 (Same as: l 1.33 MEQ/ML 16:34: Potassium H ermann Oral 00 Chloride) Solution Labetalol 2019-11 No Notes: Memori a 0-03 With food. l 15:00: (Same [place] 00 as:Trandat e, Normodyne) Lactulose 2019-11 No Notes: Memori a 667 MG/ML 0-02 (Same l Oral 21:03: as:Chronul [place] Solution 00 ac) Haldol 2019-11 No Notes: Memoria 0-02 (Same as: l 21:03: Haldol) Per 00 Ciprofloxac 2019-11 No Notes: Do M emoria in 0-02 not l 14:00: refrigerat [place] 00 e Flagyl 2019-11 No Notes: Memoria 0-02 (Same as: l 14:00: Flagyl) [place] 00 Avoid alcohol. Famotidine 2019-11 No Notes: Memor ia 20 MG Oral 0-02 (Same as: l Tablet 02:00: Pepcid) Per [Pepcid] 00 168 HR 2019-11 No Notes: Memoria Clonidine 0-02 Patch l 0.95176 02:00: delivers Bakari n MG/HR 00 0.2 mg/24 Transdermal hours; Patch Patch is applied weekly. "Remove old patch before applicatio n of new patch" (Same As: Catapres-T TS-2) Labetalol 2019-11 No Notes: Memori a 0-02 (Same as: l 01:41: Normodyne, Per 00 Trandate) Push over 2 minutes Give bolus over 2-3 minutes. Fenofibrate 2019-11 No Notes: Reagan sharonda 160 MG Oral 0-01 (Same as: l Tablet 14:00: Tricor) omega-3 2019-11 No Notes: Memoria polyunsatur 0-01 (Same as: l ated fatty 14:00: Lovaza, Herm beverly acids formally named [place]) "Do Not Crush" Chlordiazep 2019-11 No Notes: Reagan sharonda oxide 0-01 (Same As: l Hydrochlori 14:00: Librium) He rmann de 10 MG Oral Capsule Folic Acid 2019-11 No Notes: Memor ia 0-01 (Same as: l 14:00: Folvite) multivitami 2019-11 No Notes: Reagan sharonda n 0-01 (Same l 14:00: as:Thera) WASTE: F/P - Black; E - Municipal Trash Bin Take with food. Thiamine 2019-11 No Notes: Memoria 0-01 (Same As: l 14:00: Vitamin B1) multivitami 2019-11 No Notes: Reagan sharonda n with 0-01 (Same l minerals 14:00: as:Thera-M Her newberry 00 , Theragran- M) WASTE: F/P - Black; E - Municipal Trash Bin Give with food. Reglan 2019-11 No Notes: Memoria 0-01 (Same as: l 13:26: Reglan) Lorazepam 2019-11 No Notes: Memori a 0-01 (Same as: l 13:14: Ativan) Clonidine 2019-11 No Notes: Memori a 0-01 (Same As: l 13:14: Catapres) Phenergan 2019-11 No 12.5 mg, Reagan sharonda 0-01 Route: l 13:13: IVPB, Q4H, Dosing Weight 122.045, kg, PRN Nausea & Vomiting, Start date: 08/23/20 8:13:00 CDT, Duration: 30 day, Stop date: 09/22/20 8:12:00 CDT meropenem 2019-11 No Notes: Memori a 0-01 Same as l 13:00: Merrem Lovenox 2019-11 No Notes: Memoria 0-01 (Same as: l 13:00: Lovenox) Metoprolol 2019-11 No Notes: Memor ia 0-01 (Same as: l 07:07: Lopressor) Push over 2 minutes lisinopril 2019-11 Yes 10 mg = 1 Me moria 10 mg oral 0-01 tab, PO, l tablet 04:14: Daily, # 00 30 tab, 0 Refill(s) NS (Bolus) 2019-11 No 1,000 mL, Me moria IV 0-01 1,000 l 04:14: ml/hr, Infuse Over: 1 hr, Route: IV, 1,000, Drug form: INJ, ONCE, Priority: STAT, Dosing Weight 122.045 kg, Start date: 08/22/20 23:14:00 CDT, Stop date: 08/22/20 23:14:00 CDT, 0 Ativan 2019-11 No Notes: Memoria 0-01 (Same as: l 04:13: Ativan) NS 1,000 mL 2019-11 No 1,000 mL, M emoria 0- Rate: 100 l 04:11: ml/hr, Infuse over: 10 hr, Route: IV, Dosing Weight 122.045 kg, Total Volume: 1,000, Start date: 08/22/20 23:11:00 CDT, Duration: 30 day, Stop date: 09/21/20 23:10:00 CDT, 2.56, m2, 0 Dilaudid 2019-11 No Notes: Memoria 0-01 Same as: l 04:11: Dilaudid Dextrose 2019-11 No 12.5 gm, Memor ia 50% Syringe 0-01 25 mL, l (D50W) 04:10: Route: IVP, Drug Form: INJ, Dosing Weight 122.045, kg, PRN, PRN Blood Glucose Results, Start date: 08/22/20 23:10:00 CDT, Duration: 30 day, Stop date: 09/21/20 23:09:00 CDT, 0 Glucagon 2019-11 No 1 mg, Memoria 0-01 Route: IM, l 04:10: Drug form: Per 00 PDR/INJ, PRN, Dosing Weight 122.045, kg, PRN Blood Glucose Results, Start date: 08/22/20 23:10:00 CDT, Duration: 30 day, Stop date: 09/21/20 23:09:00 CDT, 0 Ondansetron 2019-11 No Notes: Reagan sharonda 0-01 (Same as: l 04:10: Zofran) Per 00 MEDICATION WASTE Product Size: 4 mg Product Wasted: ___ mg Vital Signs Vital Name Observation Time Observation Value Comments Source Temperature Oral (F) 2020-08-26 13:00:00 98.9 F [facility] [place] Heart Rate 2020-08-26 13:00:00 [facility] Per Respitory Rate 2020-08-26 13:00:00 Memori al [place] Systolic (mm Hg) 2020-08-26 13:00:00 Reagan rial [place] Diastolic (mm Hg) 2020-08-26 13:00:00 Mem orial Per Temperature Oral (F) 2020-08-26 09:00:00 98.4 F [facility] [place] Heart Rate 2020-08-26 09:00:00 [facility] Per Respitory Rate 2020-08-26 09:00:00 Memori al Per Systolic (mm Hg) 2020-08-26 09:00:00 Reagan rial [place] Diastolic (mm Hg) 2020-08-26 09:00:00 Mem orial [place] Systolic (mm Hg) 2020-08-26 07:30:00 Reagan rial Per Diastolic (mm Hg) 2020-08-26 07:30:00 Mem orial [place] Heart Rate 2020-08-26 07:30:00 [facility] Pre Temperature Oral (F) 2020-08-26 05:00:00 100.6 F [facility] Per Respitory Rate 2020-08-26 05:00:00 Memori al Per Height 2020-08-23 04:01:00 190.5 cm [facility] [place] Weight 2020-08-23 04:01:00 [facility] Per BMI Calculated 2020-08-23 04:01:00 Memori al Per Procedures This patient has no known procedures. Encounters Start End Encounter Admission Attending Care Care Encounter Source Date/Time Date/Time Type Type Clinicians Facility Department ID 2020-08-22 Inpatient U [facility] [id number] [facility] L 22:35:00 2020-08-22 2020-08-26 Outpatient GELACIO Isaacs [facility] [id number] 22:35:00 13:15:00 Jeff 74 2020-08-22 2020-08-26 Outpatient GELACIO Isaacs [facility] [id number] 22:35:00 13:15:00 Jeff 74 Results Test Description Test Time Test Comments Results Result Comments Source CHEM PANEL 2020-08-26 106 [facility] Sharita nn 09:37:00 CHEM PANEL 2020-08-26 8 [facility] Sharita nn 09:37:00 CHEM PANEL 2020-08-26 0.65 [facility] Sharita nn 09:37:00 CHEM PANEL 2020-08-26 137 [facility] Sharita nn 09:37:00 CHEM PANEL 2020-08-26 3.1 [facility] Sharita nn 09:37:00 CHEM PANEL 2020-08-26 102 [facility] Sharita nn 09:37:00 CHEM PANEL 2020-08-26 26 [facility] Sharita nn 09:37:00 CHEM PANEL 2020-08-26 8.2 [facility] Sharita nn 09:37:00 CHEM PANEL 2020-08-26 6.4 [facility] Sharita nn 09:37:00 CHEM PANEL 2020-08-26 2.3 [facility] Sharita nn 09:37:00 CHEM PANEL 2020-08-26 76 [facility] Sharita nn 09:37:00 CHEM PANEL 2020-08-26 86 [facility] Sharita nn 09:37:00 CHEM PANEL 2020-08-26 85 [facility] Sharita nn 09:37:00 CHEM PANEL 2020-08-26 0.8 [facility] Sharita nn 09:37:00 CHEM PANEL 2020-08-26 12.1 [facility] Sharita nn 09:37:00 CHEM PANEL 2020-08-26 09:37:00 Test Item Value Reference Range Interpretation Comme nts B/C Ratio (test code = B/C Ratio) 12 1 6-25 [facility] [id number] 09:37:004.1[facility]ann[facility] PANEL 2020-08-26 09:37:00 Test Item Value Reference Range Interpretation Comments A/G Ratio (test code = A/G Ratio) 0.6 1 0.7-1.6 [facility] [id number] 09:37:77302Faaoimds HermannHEMATOLOGY 2020-08-26 09:37:0074.5[facility] VozdhffWSBDXTDPUW7491-58-46 09:37:0012.0[facility] ScjupepUGXKVVJLSJ6206-51-62 09:37:0011.7[facility] XsemrndKCZKVJRDHM9532-45-56 09:37:001.6[facility] VelkxbkEGEYDOVMAG6951-26-67 09:37:000.2[facility] [place] WRPLORDFZX8394-79-53 09:37:009.7[facility] WeoyauyVLKMXGVZGA4231-11-96 09:37:001.6 [facility] VhpdjuaTOHBWIEXXW3380-59-69 09:37:001.5[facility]annHEMATOLOGY 2020-08-26 09:37:000.2[facility] ApyisnwONQQUIWYFK9723-08-08 09:37:0013.0[facility] SsamkvhDGHDKNTZYA7602-69-89 09:37:003.37[facility] LkzxhobLHQXEFGRYN2535-20-56 09:37:0011.5[facility] WlkzjngITWJZYDNYZ3469-89-99 09:37:0033.6[facility] [place] OEUZDLYAPF6585-58-08 09:37:0099.7[facility] WsrwcmqHAMMGOPCKV2372-49-75 09:37:00 Test Item Value Reference Range Interpretation Comments MCH (test code = MCH) 34.2 pg 27.0-31.0 [facility] JhwgsukWPVBVRRKHU8267-80-72 09:37:0034.3[facility]annHEMATOLOGY 2020-08-26 09:37:0013.2[facility] MkblafbNCCFOFFJBZ2206-74-69 09:37:83919Fymsnvnv MjqahywXEQYTEROUT0173-34-82 09:37:007.2[facility]annCHEM FPZVH2750-17-59 09:35:0097[facility]annCHEM HJYKD1461-81-43 09:35:008[facility]annCHEM TJXTE8981-86-24 09:35:000.64[facility]annCHEM REFVO8664-23-42 09:35:10075 [facility]ann[facility] RACSJ8719-65-49 09:35:003.4[facility] HermannCHEM PANEL 2020-08-25 09:35:99214Ttvuhpng HermannCHEM JPVYI6386-25-99 09:35:0025[facility]annCHEM QQTZU3959-24-40 09:35:007.9[facility]annCHEM LZMFZ3321-52-11 09:35:006.7[facility]annCHEM RIGAQ8026-93-70 09:35:002.5[facility]annCHEM CIDPW9428-20-64 09:35:0061[facility]annCHEM FUJHR1007-61-99 09:35:0059 [facility]annCHE[facility] AMNET3658-71-43 09:35:0081[facility]annCHEM PANEL 2020-08-25 09:35:001.0[facility]annCHEM ZMWKR2672-94-23 09:35:0012.4[facility]annCHEM PUVHK0023-84-34 09:35:00 Test Item Value Reference Range Interpretation Comments B/C Ratio (test code = B/C Ratio) 12 1 6-25 [facility] [id number] 09:35:004.2[facility]annCHEM PANEL 2020-08-25 09:35:00 Test Item Value Reference Range Interpretation Comments A/G Ratio (test code = A/G Ratio) 0.6 1 0.7-1.6 [facility]annCHE[facility] BUVUN4369-29-59 09:35:32796Ncsiybye HermannHEMATOLOGY 2020-08-25 09:35:0013.6[facility] ViflzgmUJIQRWVACW5035-13-13 09:35:003.46[facility] UlwkoupDLLDDNSFGD0048-17-30 09:35:0012.1[facility] FhewzbtYNVZIWWAZE1128-75-31 09:35:0034.4[facility] OrjpclhYQTCUFYNPN7265-43-07 09:35:0099.3[facility] [place] SPDWNDNJTL9622-26-78 09:35:00 Test Item Value Reference Range Interpretation Comments MCH (test code = MCH) 34.9 pg 27.0-31.0 [facility] VnsmldeXUUTGXPOZY0453-97-85 09:35:0035.1[facility]annHEMATOLOGY 2020-08-25 09:35:0012.9[facility] PsahfqpNDEIYFQTJF9306-12-44 09:35:79007Szucziko XsdbzqoTEVBIPVTWT3832-61-47 09:35:007.4[facility] FeixpagHQLOOYTKVA2879-56-32 09:35:0081.3[facility] RsysmduCFYRYZIZZM9676-76-14 09:35:008.6[facility] Per USNHIPVRTU3791-11-84 09:35:009.7[facility] TgngvkfXTYBCVWCWQ6526-95-70 09:35:000.2 [facility] XzvlnptNHTCVDGNBR8794-69-97 09:35:000.2[facility]annHEMATOLOGY 2020-08-25 09:35:0011.1[facility] GqtgbjbUQSHMSANOF5812-94-28 09:35:001.2[facility] JyzkqszZOFMJYOUFY4052-28-67 09:35:001.3[facility]annCHEM YRXLW4332-42-22 09:44:21427Wovkznwz HermannCHEM DKZZG1033-10-60 09:44:0011[facility]annCHEM XCXHH6642-56-48 09:44:000.80[facility]annCHEM OGHCK9603-38-95 09:44:34411 [facility]annCHE[facility] ZRVEI2497-90-68 09:44:003.4[facility]annCHEM PANEL 2020-08-24 09:44:31235Dzsfqhjh HermannCHEM FPMEL8220-66-63 09:44:0024[facility]annCHEM UIXTE8536-00-82 09:44:008.0[facility]annCHEM YHRCZ9702-99-90 09:44:006.5[facility]annCHEM UMNYB1268-98-69 09:44:002.7[facility]annCHEM LAXEF4948-52-24 09:44:0076[facility]annCHEM MXBAV6233-75-30 09:44:0068 [facility]annCHE[facility] UMXUR8195-34-30 09:44:0068[facility]annCHEM PANEL 2020-08-24 09:44:001.2[facility]annCHEM KKGFG1020-35-33 09:44:0013.4[facility]annCHEM ZQPCL1475-52-65 09:44:00 Test Item Value Reference Range Interpretation Comments B/C Ratio (test code = B/C Ratio) 14 1 6-25 [facility]CHE[facility] AAKML1107-62-33 09:44:003.8[facility]annCHEM PANEL 2020-08-24 09:44:00 Test Item Value Reference Range Interpretation Comments A/G Ratio (test code = A/G Ratio) 0.7 1 0.7-1.6 [facility] [id number] 09:44:22974Ifimdsre HermannHEMATOLOGY 2020-08-24 09:44:0087.2[facility] VyfztghBUXUVDKIMB6186-19-51 09:44:004.9[facility] YfltvogJQECFBIIPS3084-92-84 09:44:007.7[facility] LipcxddWMYFIKGZDD4257-13-80 09:44:000.2[facility] PmgmwdcMCGFOEMTYS7093-72-00 09:44:0016.2[facility] Per YYOSNFXWWD2729-57-81 09:44:000.9[facility] HxeawpqTILDMLMEED6363-94-58 09:44:001.4 [facility] NhsvuulWYSWPBGNGY0843-63-02 09:44:0018.6[facility] HermannHEMATOLOGY 2020-08-24 09:44:003.91[facility] XsalqnnMFHZYPYDIX8548-44-20 09:44:0013.5[facility] TjmgwssOCYZWTXLJN0142-57-42 09:44:0038.7[facility] YocckfqWUYSFVFHXI6985-59-78 09:44:0099.0[facility] XuptxcxRDCNDKYVBW5528-80-29 09:44:00 Test Item Value Reference Range Interpretation Comments MCH (test code = MCH) 34.5 pg 27.0-31.0 [facility] HzizaptNGYGTAKUDK6728-66-77 09:44:0034.9[facility] HermannHEMATOLOGY 2020-08-24 09:44:0013.5[facility] RpsljjfWIJROGVRSY1592-80-62 09:44:14194Ahhjyocz PgrxuzzOVMCUCXXYQ2194-48-70 09:44:007.5[facility] PavriqkXIABUY9817-02-02 09:44:00 320[facility]annCHEM FBPHK5601-51-13 02:13:001.5[facility] HermannIMMUNOLOGY 2020-08-23 10:58:00Not Detected (08/23/20 5:58 AM)[facility]annCHEM PANEL 2020-08-23 04:50:852784Rzhqtppo PmjoonrMUCSOLXYOB7148-00-33 04:50:00Normal (08/22/20 11:50 PM)[facility] HzrodewXQKVEKZWWH1437-78-30 04:50:00Normal (08/22/20 11:50 PM)[facility] QsqrjzaWIKUMA2522-06-87 04:50:92694Dxrfluqc HermannLIPIDS 2020-08-23 04:50:19241Ivzyxcgk BxdcvbeBCQNPZ4699-16-30 04:50:0028[facility] KhjedafKVRSOV4639-49-12 04:50:00 Test Item Value Reference Range Interpretation Comments CHD Risk (test code = CHD Risk) 6.21 1 4.00-7.30 [facility] CrjhgwfWRABZT3127-60-66 04:50:00See Note 5*NA*(08/22/20 11:50 PM) [facility] Per
[2020-11-22 17:40] LABS: Absolute Lymphocytes (CBC) 0.9 K/uL (0.7-4.9); Basophils % 0.8 % (0-1.3); Hematocrit 44.7 % (39.6-49.0); Lymphocytes % 15.3 % (15.3-44.8); MPV 7.4 fL (7.6-11.3)
[2020-11-22 17:41] LABS: Protime INR 0.97
--- NOTE | 2020-11-22 17:45 | RAD REPORT ---
EXAM DESCRIPTION: RAD - Chest Single View - 11/22/2020 5:34 pm CLINICAL HISTORY: CHEST PAIN COMPARISON: Portable October 11, 2020 TECHNIQUE: AP portable chest image was obtained 11/22/2020 5:34 pm . FINDINGS: Lungs are clear. Heart and vasculature are normal. No measurable pleural effusion and no p neumothorax. No acute bony abnormality seen. No acute aortic findings suspected. IMPRESSION: No acute cardiopulmonary process. No significant change from comparison study.
[2020-11-22] MEDS ORDERED: LORazepam 2 MG/ML VIAL ONE (17:49)
[2020-11-22] MEDS ORDERED: MULTIVITAMINS 10 ML VIAL (INJ) IV ONE (17:50)
[2020-11-22] MEDS ORDERED: NA CHLORIDE 0.9% 2,000 ML ONE (17:50)
[2020-11-22 18:01] LABS: ALT/SGPT 257 U/L (12-78); Albumin 4.5 g/dL (3.4-5.0); Alkaline Phosphatase 106 U/L (45-117); BUN Blood Urea Nitrogen 7 mg/dL (7-18); Bicarbonate 24 mmol/L (21-32); Bilirubin Direct 0.2 mg/dL (0-0.2); Bilirubin Total 0.7 mg/dL (0.2-1.0); Glucose Level 98 mg/dL (74-106); Magnesium 1.7 mg/dL (1.8-2.4); NT PRO-BNP 50 pg/mL (<125); Potassium 3.4 mmol/L (3.5-5.1); Protein, Total 9.4 g/dL (6.4-8.2); Sodium Level 139 mmol/L (136-145); Troponin (Emerg Dept Use Only) < 0.02 ng/mL (0.0-0.045)
[2020-11-22 18:09] LABS: AST/SGOT 343 U/L (15-37)
--- NOTE | 2020-11-22 18:47 | ER ---
Nurse's Notes [facility] Name: Mc Barrios Age: 30 yrs Sex: Male : 1990 Arrival Date: 11/22/2020 Time: 16:42 Bed 27 Private MD: Diagnosis: Chest pain, unspecified;Alcohol abuse Presentation: 11/22 16:50 Chief complaint: Patient states: So I have been a emt intermediate drinker and I recently ca1 decided to get some help. Quit 2 days ago, since then I have been having really bad anxiety, chest tightness, tremors and cold sweats. Coronavirus screen: Client denies travel out of the [place] in the last 14 days. At this time, the client does not indicate any symptoms associated with coronavirus-19. Ebola Screen: Patient negative for fever greater than or equal to 101.5 degrees Fahrenheit, and additional compatible Ebola Virus Disease symptoms Patient denies exposure to infectious person. Patient denies travel to an Ebola-affected area in the 21 days before illness onset. No symptoms or risks identified at this time. Initial Sepsis Screen: Does the patient meet any 2 criteria? No. Patient's initial sepsis screen is negative. Does the patient have a suspected source of infection? No. Patient's initial sepsis screen is negative. Risk Assessment: Do you want to hurt yourself or someone else? Patient reports no desire to harm self or others. Onset of symptoms was November 22, 2020. 16:50 Method Of Arrival: Ambulatory ca1 16:50 Acuity: ROSCOE 2 ca1 Historical: - Allergies: 16:54 Sulfa (Sulfonamide Antibiotics); ca1 - Home Meds: 16:54 lisinopril 10 mg Oral tab 1 tab once daily [Active]; ca1 - PMHx: 16:54 Hypertension; ca1 - PSHx: 16:54 Hernia repair; ca1 - Immunization history:: Adult Immunizations up to date, Flu vaccine is not up to date. - Social history:: Smoking status: Reported history of juuling and/or vaping. Patient uses alcohol, on a daily basis. Screenin:49 Abuse screen: Denies threats or abuse. Denies injuries from another. Nutritional ph screening: No deficits noted. Tuberculosis screening: No symptoms or risk factors identified. Fall Risk None identified. Assessment: 17:48 General: Appears in no apparent distress. comfortable, well groomed, Behavior is calm, ph cooperative, appropriate for age, Denies fever, feeling ill. Pain: Complains of pain in chest Pain does not radiate. Quality of pain is described as "tight". Neuro: Level of Consciousness is awake, alert, obeys commands, Oriented to person, place, time, situation. Cardiovascular: Reports chest pain, fatigue, Capillary refill < 3 seconds in bilateral fingers Patient's skin is warm and dry. Respiratory: Airway is patent Respiratory effort is even, unlabored. GI: No signs and/or symptoms were reported involving the gastrointestinal system. Derm: Skin is intact, Skin is pink, warm \\T\\ dry. Musculoskeletal: Circulation, motion, and sensation intact. Range of motion: intact in all extremities. Vital Signs: 16:50 BP 173 / 151; Pulse 117; Resp 19 S; Temp 97.9(TE); Pulse Ox 100% on R/A; Weight 117.93 ca1 kg (R); Height 6 ft. 3 in. (190.50 cm) (R); 17:49 BP 170 / 104; Pulse 101; Resp 18; Pulse Ox 96% on R/A; ph 19:05 BP 168 / 101; Pulse 99; Resp 16; Pulse Ox 97% on R/A; ph 16:50 Body Mass Index 32.50 (117.93 kg, 190.50 cm) ca1 ED Course: 16:42 Patient arrived in ED. ag5 16:53 Triage completed. ca1 16:54 Arm band placed on right wrist. ca1 16:56 Mike Sylvester NP is PHCP. pm1 16:57 Diego Pearson MD is Attending Physician. pm1 17:20 Missed attempt(s): 20 gauge in right antecubital area. Bleeding controlled, band aid ca1 applied, catheter tip intact. 17:23 No provider procedures requiring assistance completed. Initial lab(s) drawn, by ms, ca1 sent to lab. Inserted saline lock: 20 gauge in left antecubital area, using aseptic technique. Blood collected. Patient maintains SpO2 saturation greater than 95% on room air. 17:34 XRAY Chest (1 view) In Process Unspecified. EDMS 17:47 Kortney Rhodes, RN is Primary Nurse. ph 17:49 Patient has correct armband on for positive identification. Bed in low position. Call ph light in reach. Side rails up X 1. wastewater design engineer on. Pulse ox on. NIBP on. Door closed. Noise minimized. Warm blanket given. 19:21 IV discontinued, intact, bleeding controlled, No redness/swelling at site. Pressure rv dressing applied. Administered Medications: 17:47 Drug: NS 0.9% 1000 ml Route: IV; Rate: 1000 ml; Site: left antecubital; ph 19:05 Follow up: Response: No adverse reaction; IV Status: Completed infusion; IV Intake: ph 1000ml 17:47 Drug: Banana Bag - (NS 0.9% 1000 ml, foLIC Acid 1 mg, Thiamine 100 mg, Multivitamin 1 ph amp) Route: IV; Rate: calculated rate; Site: left antecubital; 19:04 Follow up: Response: No adverse reaction; IV Status: Completed infusion; IV Intake: ph 1000ml 17:47 Drug: Ativan 1 mg Route: IVP; Site: left antecubital; ph 18:42 Follow up: Response: No adverse reaction ph 18:42 Drug: Ativan 1 mg Route: IVP; Site: left antecubital; ph 18:42 Follow up: Response: No adverse reaction ph Intake: 19:04 IV: 1000ml; Total: 1000ml. ph 19:05 IV: 1000ml; Total: 2000ml. ph Outcome: 18:46 Discharge ordered by . pm1 19:20 Discharged to home ambulatory, with family. rv 19:20 Condition: improved 19:20 Discharge instructions given to patient, Instructed on discharge instructions, follow up and referral plans. medication usage, Demonstrated understanding of instructions, follow-up care, medications, Prescriptions given X 2. 19:21 Patient left the ED. rv Signatures: Dispatcher [employer] Kortney Vasquez RN RN ph Mike Sylvester, SHEET METAL SUPERINTENDENT SHEET METAL SUPERINTENDENT pm1 Florin Cool RN RN rv Bekah Lancaster RN RN ca1 [place], Ajare ag5
--- NOTE | 2020-11-22 18:47 | EDPHYS ---
Physician Documentation [facility] Name: Mc Barrios Age: 30 yrs Sex: Male : 1990 Arrival Date: 11/22/2020 Time: 16:42 Bed 27 Private MD: MARK Physician Diego Pearson HPI: 11/22 16:03 This 30 yrs old Male presents to ER via Ambulatory with complaints of pm1 Anxiety, Chest Tightness, Alcohol Withdrawal. 16:03 The patient or guardian reports chest pain that is located primarily in the anterior pm1 aspect of left upper chest. The pain does not radiate. Associated signs and symptoms: Pertinent positives: tremors, Pertinent negatives: abdominal pain, cough, headache, nausea, shortness of breath, vomiting. The chest pain is described as aching. Duration: The patient or guardian reports a single episode, that is still ongoing. Modifying factors: The symptoms are alleviated by alcohol. the symptoms are aggravated by patient decided to take himself off his anxiety and depression medications without PCP consent. Patient reports that he drinks alcohol to cope with the anxiety. Severity of pain: in the emergency department the pain is unchanged. The patient has experienced similar episodes in the past, several times. The patient has not recently seen a physician, has an appointment scheduled, with his PCP on Thursday. Historical: - Allergies: 16:54 Sulfa (Sulfonamide Antibiotics); ca1 - Home Meds: 16:54 lisinopril 10 mg Oral tab 1 tab once daily [Active]; ca1 - PMHx: 16:54 Hypertension; ca1 - PSHx: 16:54 Hernia repair; ca1 - Immunization history:: Adult Immunizations up to date, Flu vaccine is not up to date. - Social history:: Smoking status: Reported history of juuling and/or vaping. Patient uses alcohol, on a daily basis. ROS: 17:03 Constitutional: Negative for fever, chills, and weight loss. pm1 17:03 Respiratory: Negative for shortness of breath, cough, wheezing, and pleuritic chest pain, Abdomen/GI: Negative for abdominal pain, nausea, vomiting, diarrhea, and constipation, Back: Negative for injury and pain, MS/Extremity: Negative for injury and deformity, Skin: Negative for injury, rash, and discoloration. 17:03 Cardiovascular: Positive for chest pain, Negative for edema, orthopnea, palpitations. 17:03 Neuro: Positive for tremor, of the right arm and left arm, Negative for altered mental status, headache, numbness, tingling, weakness. Exam: 18:03 Constitutional: This is a well developed, well nourished patient who is awake, alert, pm1 and in no acute distress. Head/Face: Normocephalic, atraumatic. Chest/axilla: Normal chest wall appearance and motion. Nontender with no deformity. No lesions are appreciated. 18:03 Skin: Warm, dry with normal turgor. Normal color with no rashes, no lesions, and no evidence of cellulitis. MS/ Extremity: Pulses equal, no cyanosis. Neurovascular intact. Full, normal range of motion. 18:03 Cardiovascular: Rate: tachycardic, actual rate is 101 bpm, Rhythm: regular, Pulses: no pulse deficits are appreciated, Edema: is not appreciated. 18:03 Respiratory: Exam negative for acute changes, respiratory distress, shortness of breath. 18:03 Abdomen/GI: Exam negative for acute changes, Inspection: abdomen appears normal, Palpation: abdomen is soft and non-tender, in all quadrants. 18:03 Neuro: Exam negative for acute changes, Orientation: is normal, Mentation: is normal, Motor: is normal, moves all fours, Gait: is steady, at a normal pace, without difficulty. Vital Signs: 16:50 BP 173 / 151; Pulse 117; Resp 19 S; Temp 97.9(TE); Pulse Ox 100% on R/A; Weight 117.93 ca1 kg (R); Height 6 ft. 3 in. (190.50 cm) (R); 17:49 BP 170 / 104; Pulse 101; Resp 18; Pulse Ox 96% on R/A; ph 19:05 BP 168 / 101; Pulse 99; Resp 16; Pulse Ox 97% on R/A; ph 16:50 Body Mass Index 32.50 (117.93 kg, 190.50 cm) ca1 MDM: 16:57 Patient medically screened. pm1 18:35 Data reviewed: vital signs. pm1 18:46 Counseling: I had a detailed discussion with the patient and/or guardian regarding: the pm1 historical points, exam findings, and any diagnostic results supporting the discharge/admit diagnosis, lab results, radiology results, the need for outpatient follow up, to return to the emergency department if symptoms worsen or persist or if there are any questions or concerns that arise at home. 11/22 16:57 Order name: Basic Metabolic Panel; Complete Time: 18:18 pm1 11/22 16:57 Order name: CBC with Diff; Complete Time: 17:57 pm1 11/22 16:57 Order name: LFT's; Complete Time: 18:18 pm1 11/22 16:57 Order name: Magnesium; Complete Time: 18:18 pm1 11/22 16:57 Order name: NT PRO-BNP; Complete Time: 18:18 pm1 11/22 16:57 Order name: PT-INR; Complete Time: 17:57 pm1 11/22 16:57 Order name: Troponin (emerg Dept Use Only); Complete Time: 18:18 pm1 11/22 16:57 Order name: XRAY Chest (1 view); Complete Time: 17:57 pm1 11/22 16:57 Order name: EKG; Complete Time: 16:58 pm1 11/22 17:07 Order name: ETOH Level; Complete Time: 18:18 pm1 11/22 16:57 Order name: Cardiac monitoring; Complete Time: 17:08 pm1 11/22 16:57 Order name: EKG - Nurse/Tech; Complete Time: 17:08 pm1 11/22 16:57 Order name: IV Saline Lock; Complete Time: 17:23 pm1 11/22 16:57 Order name: Labs collected and sent; Complete Time: 17:23 pm1 11/22 16:57 Order name: O2 Per Protocol; Complete Time: 17:08 pm1 11/22 16:57 Order name: O2 Sat Monitoring; Complete Time: 17:08 pm1 Administered Medications: 17:47 Drug: NS 0.9% 1000 ml Route: IV; Rate: 1000 ml; Site: left antecubital; ph 19:05 Follow up: Response: No adverse reaction; IV Status: Completed infusion; IV Intake: ph 1000ml 17:47 Drug: Banana Bag - (NS 0.9% 1000 ml, foLIC Acid 1 mg, Thiamine 100 mg, Multivitamin 1 ph amp) Route: IV; Rate: calculated rate; Site: left antecubital; 19:04 Follow up: Response: No adverse reaction; IV Status: Completed infusion; IV Intake: ph 1000ml 17:47 Drug: Ativan 1 mg Route: IVP; Site: left antecubital; ph 18:42 Follow up: Response: No adverse reaction ph 18:42 Drug: Ativan 1 mg Route: IVP; Site: left antecubital; ph 18:42 Follow up: Response: No adverse reaction ph Disposition: 11/23 07:04 Co-signature as Attending Physician, Diego Pearson MD I agree with the assessment and cris plan of care. Disposition: 11/22/20 18:46 Discharged to Home. Impression: Chest pain, unspecified, Alcohol abuse. - Condition is Stable. - Discharge Instructions: Nonspecific Chest Pain, Alcohol Abuse and Nutrition. - Prescriptions for chlordiazepoxide HCl 25 mg Oral capsule - take 4 capsule by ORAL route as directed Day 1: Librium 25 mg every 6 hours. Day 2: Librium 25 mg every 8 hours. Day 3: Librium 25 mg every 12 hours. Day 4: Librium 25 mg at bed time. Day 5: Librium 25 mg at bed time; 11 capsule. Lisinopril 10 mg Oral Tablet - take 1 tablet by ORAL route once daily; 30 tablet. - Medication Reconciliation Form, Thank You Letter, Antibiotic Education, Prescription Opioid Use form. - Follow up: Emergency Department; When: As needed; Reason: Worsening of condition. Follow up: Private Physician; When: 2 - 3 days; Reason: Recheck today's complaints, Continuance of care, Re-evaluation by your physician. - Problem is new. - Symptoms have improved. Signatures: Dispatcher [employer] EDDiego Jung MD MD cha Hall, Patricia, RN RN ph Mike Sylvester, МАРИЯ SOAKER SODA WORKER pm1 Florin Cool RN RN rv Bekah Lancaster RN RN ca1 Corrections: (The following items were deleted from the chart) 11/22 19:21 18:46 11/22/2020 18:46 Discharged to Home. Impression: Chest pain, unspecified; Alcohol rv abuse. Condition is Stable. Forms are Medication Reconciliation Form, Thank You Letter, Antibiotic Education, Prescription Opioid Use. Follow up: Emergency Department; When: As needed; Reason: Worsening of condition. Follow up: Private Physician; When: 2 - 3 days; Reason: Recheck today's complaints, Continuance of care, Re-evaluation by your physician. Problem is new. Symptoms have improved. pm1
[2020-11-22 19:44] VITALS: BP 170/104; O2SAT 96
--- NOTE | 2020-11-24 14:07 | EKG ---
Test Date: 2020-11-22 Test Time: 17:02:17 Telephone Interviewer: CHRISTOPHE MEASUREMENT RESULTS: Intervals: Rate: 113 NE: 160 QRSD: 92 QT: 334 QTc: 458 [place]: P: 33 NE: 160 QRS: 28 T: 33 INTERPRETIVE STATEMENTS: Sinus tachycardia Nonspecific ST abnormality Abnormal ECG Compared to ECG 10/11/2020 18:22:07 ST (T wave) deviation now present Left ventricular hypertrophy no longer present Electronically Signed On 11-24-20 14:04:54 CLINICAL DIETETIC TECHNICIAN by Nick Hammond
== END 2020-11-22 19:21 | disposition home or self-care (01) ==
LOC: ER 16:40
DX: F10.10 Alcohol abuse, uncomplicated (principal); I10 Essential (primary) hypertension; Z88.2 Allergy status to sulfonamides; Z87.891 Personal history of nicotine dependence
CPT/HCPCS: 96365; 93005; 85025; 80048; 36415; 80320; 83735; 85610; 80076; 84484; 83880; 71045; 96375; 99285; J7030

== ENCOUNTER 2020-12-17 10:04 | Inpatient (IN) | payer OTHER ==
[2020-12-17] MEDS ORDERED: LORazepam 2 MG/ML VIAL ONE ×5 (10:25→22:01)
[2020-12-17] MEDS ORDERED: Ringers Lactate 1,000 ML IV ONE (10:25)
[2020-12-17] MEDS ORDERED: ONDANSETRON 4 MG/2 ML VIAL ONE (10:27)
[2020-12-17 10:35] LABS: Absolute Lymphocytes (CBC) 1.3 K/uL (0.7-4.9); Basophils % 0.6 % (0-1.3); Hematocrit 42.7 % (39.6-49.0); Lymphocytes % 14.1 % (15.3-44.8); MPV 7.9 fL (7.6-11.3)
[2020-12-17 10:52] LABS: Albumin 4.2 g/dL (3.4-5.0); Bilirubin Direct 0.5 mg/dL (0-0.2); Bilirubin Total 1.1 mg/dL (0.2-1.0); Potassium 3.7 mmol/L (3.5-5.1); Protein, Total 8.9 g/dL (6.4-8.2)
[2020-12-17] MEDS ORDERED: ETOMIDATE 20 MG/10 ML VIAL IV ONE (11:08)
[2020-12-17] MEDS ORDERED: propofoL 200 MG/20 ML VIAL IV ONE (11:09)
--- OUTSIDE RECORDS SUMMARY | 2020-12-17 11:16 | XMS REPORT | Continuity of Care Document ---
:1990 Author Organization [employer] Care Team Providers Name Role Phone [employer] Unavailable Un available Problems Problem Status Onset Classification Date Comments Sourc e Date Reported PANCREATITIS Active Memoria l 0 [place] ACUTE ALCOHOLIC Active [facility] rial PANCREATITIS 0 Per Acute 08/28/2020 [facility] [place] pancreatitis with uninfected necrosis, unspecified ALCOHOL INDUCED Active Reagan rial ACUTE [place] PANCREATITIS WITHO ACUTE Active [facility] PANCREATITIS Per WITH UNINFECTED NECRO Medications Medication Details Route Status Patient Ordering Order Source Instructions Provider Date Fenofibrate 145 MG 145 mg = 1 Active MH Oral Tablet tab, PO, 2020 [place] Daily, # 30 tab, 0 Refill(s), [id number], 190.5, cm, 08/22/20 23:01:00 CDT, Height, 122.045, kg, 08/22/20 23:01:00 CDT, Weight omega-3 1 gm = 1 cap, Active polyunsaturated PO, BID, # 60 2019 [place] fatty acids 1000 cap, 0 mg oral capsule Refill(s), [facility]acy: [facility] #[id number], 190.5, cm, 08/22/20 23:01:00 CDT, Height, 122.045, kg, 08/22/20 23:01:00 CDT, Weight ciprofloxacin 500 500 mg = 1 Active 08/26/ MH mg oral tablet tab, PO, Q12H, 2019 [place] for UTI, X 3 day, # 6 tab, 0 Refill(s), [facility]acy: [facility] #[id number], 190.5, cm, 08/22/20 23:01:00 CDT, Height, 122.045, kg, 08/22/20 23:01:00 CDT, Weight Metronidazole 500 500 mg = 1 Active 08/26/ MH MG Oral Tablet tab, PO, Q8H, 2020 [place] [Flagyl] X 3 day, # 9 tab, 0 Refill(s), Pharmacy: [facility] #[id number], 190.5, cm, 08/22/20 23:01:00 CDT, Height, 122.045, kg, 08/22/20 23:01:00 CDT, Weight thiamine 100 mg 100 mg = 1 Active oral tablet tab, PO, 2020 [place] Daily, X 30 day, # 30 tab, 0 Refill(s), Pharmacy: [facility] #[id number], 190.5, cm, 08/22/20 23:01:00 CDT, Height, 122.045, kg, 08/22/20 23:01:00 CDT, Weight Folic Acid 1 MG 1 mg = 1 tab, Active MH Oral Tablet PO, Daily, # 2020 [place] 30 tab, 0 Refill(s), Pharmacy: [facility] #[id number], 190.5, cm, 08/22/20 23:01:00 CDT, Height, 122.045, kg, 08/22/20 23:01:00 CDT, Weight Chlordiazepoxide 10 mg = 1 cap, Active MH Hydrochloride 10 PO, QID, X 3 2020 [place] MG Oral Capsule day, # 12 cap, 0 Refill(s), Pharmacy: [facility] #[id number], 190.5, cm, 08/22/20 23:01:00 CDT, Height, 122.045, kg, 08/22/20 23:01:00 CDT, Weight Lorazepam 1 MG 1 mg = 1 tab, Active MH Oral Tablet PO, TID, PRN 2020 [place] [Ativan] as needed for anxiety, X 7 day, # 24 tab, 0 Refill(s), Pharmacy: [facility] #[id number], 190.5, cm, 08/22/20 23:01:00 CDT, Height, 122.045, kg, 08/22/20 23:01:00 CDT, Weight Famotidine 20 MG 20 mg = 1 tab, Active MH Oral Tablet PO, Q12H, # 14 2020 [place] and [Pepcid] tab, 0 Refill(s), Pharmacy: [facility] #[id number], 190.5, cm, 08/22/20 23:01:00 CDT, Height, 122.045, kg, 08/22/20 23:01:00 CDT, Weight labetalol 100 mg 100 mg = 1 Active oral tablet tab, PO, TID, 2019 [place] # 90 tab, 0 Refill(s), Pharmacy: [facility] #[id number], 190.5, cm, 08/22/20 23:01:00 CDT, Height, 122.045, kg, 08/22/20 23:01:00 CDT, Weight Potassium Chloride Notes: (Same Inactive 1.33 MEQ/ML Oral as: Potassium 2019 [place] Solution Chloride) Tramadol Notes: Not to No Longer exceed Active 2019 [place] 400mg/day. (Same As: Ultram) Lisinopril Notes: (Same No Longer as: Prinivil, Active 2019 [place] Zestril) Potassium Chloride Notes: (Same No Longer as: K-Dur 20) Active 2019 [place] "Do Not Crush" Give with food and full glass of water For patients unable to swallow tablet, dissolve in one half glass of water. Allow about 2 minutes for the tablets to disintegrate. Stir before giving to prepare slurry and administer. Please exclude Patient’ s with feeding tube less than 14 Yi (Dobhoff, J-tube etc) and pediatric and patients. potassium Notes: (Same No Longer phosphate-sodium as: Phos-NaK) Active 2019 [place] phosphate 250 Each 1.5 gm mg-280 mg-160 mg pkt has 250mg oral powder for phosphorous. reconstitution Mix w/2.5oz water and stir. potassium Notes: (Same No Longer phosphate as: K Active 2019 [place] Phosphate.) Do not infuse phosphorous concurrently in the same line as TPN or IVF that contains calcium. For double lumen central lines, phosphorous may be infused in a separate lumen from TPN. 1 mMol phoshate has 1.47 mEq potassium Infuse over 4 hours sodium phosphate Notes: Infuse No Longer over [address] Do not infuse phosphorous concurrently in the same line as TPN or IVF that contains calcium. For double lumen central lines, phosphorous may be infused in a separate lumen from TPN. Magnesium Sulfate Notes: WASTE: No Longer F/P - Sink; E Active 2019 [place] - [employer] Tr[employer] Magnesium Oxide Notes: (Same No Longer H as: Mag-Ox Active 2019 [place] 400) Magnesium oxide [id number] elemental magnesium Dose=____mg magnesium oxide (___mg elemental magnesium) Calcium Gluconate Notes: WASTE: No Longer F/P - Sink; E Active 2019 [place] - [employer] Potassium Chloride Notes: (Same Inactive 1.33 MEQ/ML [facility] as: [facility]) Labetalol Notes: With No Longer food. (Same 2019 [place] as:Trandate, Normodyne) Lactulose 667 Notes: (Same Inactive MG/ML Oral as:Chronulac) 2019 [facility] d Solution Haldol Notes: (Same Inactive as: Haldol) 2019 [place] Ciprofloxacin Notes: Do not No Longer refrigerate Active 2019 [place] Flagyl Notes: (Same No Longer as: Flagyl) [address] Avoid alcohol. Famotidine 20 MG Notes: (Same No Longer Oral Tablet as: Pepcid) Active [address] [place] [address] [Pepcid] 168 HR Clonidine Notes: Patch No Longer 0.49146 MG/HR delivers 0.2 Active 2019 [place] and Transdermal Patch mg/24 hours; Patch is applied weekly. "Remove old patch before application of new patch" (Same As: [id number] ) Labetalol Notes: (Same No Longer as: Normodyne, Active 2019 [place] Trandate) Push over 2 minutes Give bolus over 2-3 minutes. Fenofibrate 160 MG Notes: (Same No Longer Oral Tablet as: Tricor) Active 2019 [place] omega-3 Notes: (Same No Longer polyunsaturated as: Lovaza, 2019 [facility] fatty acids formally named [place]) "Do Not Crush" Chlordiazepoxide Notes: (Same No Longer Hydrochloride 10 As: Librium) Active 2019 [place] MG Oral Capsule Folic Acid Notes: (Same No Longer as: Folvite) Active 2019 [place] multivitamin Notes: (Same Inactive as:Thera) 2019 [place] WASTE: F/P - Black; E - [employer] Take with food. Thiamine Notes: (Same No Longer As: Vitamin Active 2019 [place] B1) multivitamin with Notes: (Same No Longer minerals as:Thera-M, Active 2019 [place] Theragran-M) WASTE: F/P - Black; E - [employer] Tr[employer] Give with food. Reglan Notes: (Same No Longer as: Reglan) Active 2019 [place] Lorazepam Notes: (Same No Longer as: Ativan) Active 2019 [place] Clonidine Notes: (Same No Longer As: Catapres) Active 2019 [place] Phenergan 12.5 mg, Inactive Route: IVPB, 2019 [place] Q4H, Dosing Weight 122.045, kg, PRN Nausea & Vomiting, Start date: 08/23/20 8:13:00 CDT, Duration: 30 day, Stop date: 09/22/20 8:12:00 CDT meropenem Notes: Same as No Longer Merrem Active 2019 [place] Lovenox Notes: (Same No Longer as: Lovenox) Active 2019 [place] Metoprolol Notes: (Same Inactive as: Lopressor) 2019 [place] Push over 2 minutes lisinopril 10 mg 10 mg = 1 tab, Active oral tablet PO, Daily, # 2020 [place] 30 tab, 0 Refill(s) NS (Bolus) IV 1,000 mL, Inactive 1,000 ml/hr, 2019 [place] Infuse Over: 1 hr, Route: IV, 1,000, Drug form: INJ, ONCE, Priority: STAT, Dosing Weight 122.045 kg, Start date: 08/22/20 23:14:00 CDT, Stop date: 08/22/20 23:14:00 CDT, 0 Ativan Notes: (Same No Longer as: Ativan) 2019 [place] NS 1,000 mL 1,000 mL, No Longer Rate: 100 2019 [place] ml/hr, Infuse over: 10 hr, Route: IV, Dosing Weight 122.045 kg, Total Volume: 1,000, Start date: 08/22/20 23:11:00 CDT, Duration: 30 day, Stop date: 09/21/20 23:10:00 CDT, 2.56, m2, 0 Dilaudid Notes: Same No Longer as: Dilaudid Active 2019 [place] Dextrose 50% 12.5 gm, 25 No Longer Syringe (D50W) mL, Route: Active 2019 [facility] nd IVP, Drug Form: INJ, Dosing Weight 122.045, kg, PRN, PRN Blood Glucose Results, Start date: 08/22/20 23:10:00 CDT, Duration: 30 day, Stop date: 09/21/20 23:09:00 CDT, 0 Glucagon 1 mg, Route: No Longer IM, Drug form: Active 2019 [place] PDR/INJ, PRN, Dosing Weight 122.045, kg, PRN Blood Glucose Results, Start date: 08/22/20 23:10:00 CDT, Duration: 30 day, Stop date: 09/21/20 23:09:00 CDT, 0 Ondansetron Notes: (Same No Longer as: Zofran) 2019 [place] MEDICATION WASTE Product Size: 4 mg Product Wasted: ___ mg Allergies, Adverse Reactions, Alerts Substance Category Reaction Severity Reaction Status Date Comments S ource type Reported sulfa drugs Assertion Drug Active allergy [place] Immunizations No Data Provided for This Section Results Order Name Results Value Reference Date Interpretation Comments Barb rce Range CHEM PANEL Glucose Lvl 106 70 - 99 08/26 [place] CHEM PANEL BUN 8 7 - 22 08/26 [place] CHEM PANEL Creatinine 0.65 0.50 - 08/26 Lvl 1.40 [place] CHEM PANEL Sodium Lvl 137 135 - 145 08/26 [place] CHEM PANEL Potassium 3.1 3.5 - 5.1 10 MH Lvl [place] CHEM PANEL Chloride Lvl 102 95 - 109 08/26 [place] CHEM PANEL CO2 26 24 - 32 08/26 [place] CHEM PANEL Calcium Lvl 8.2 8.5 - 10.5 08/26 MH [place] CHEM PANEL Total 6.4 6.4 - 8.4 08/26 MH Protein [place] CHEM PANEL Albumin Lvl 2.3 3.5 - 5.0 08/26 MH [place] CHEM PANEL ALT 76 0 - 65 10 MH [place] CHEM PANEL AST 86 0 - 37 08/26 MH [place] CHEM PANEL Alk Phos 85 39 - 136 08/26 [place] CHEM PANEL Bili Total 0.8 0.2 - 1.3 08/26 [place] CHEM PANEL AGAP 12.1 10.0 - 08/26 MH 20.0 [place] CHEM PANEL B/C Ratio 12 6 - 25 08/26 [place] CHEM PANEL Globulin 4.1 2.7 - 4.2 08/26 [place] CHEM PANEL A/G Ratio 0.6 0.7 - 1.6 08/26 [place] CHEM PANEL eGFR 131 08/26 [facility] Comment: The [place] eGFR is calculated using the CKD-EPI formula. [...] Segs 74.5 45.0 - 10 MH 75.0 /2020 [place] HEMATOLOGY Lymphocytes 12.0 20.0 - 10/04 MH 40.0 /2019 [place] HEMATOLOGY Monocytes 11.7 2.0 - 12.0 10/04 MH /2019 [place] HEMATOLOGY Eosinophils 1.6 0.0 - 4.0 10/04 MH /2019 [place] HEMATOLOGY Basophils 0.2 0.0 - 1.0 10/ MH /2019 [place] HEMATOLOGY Neutrophils 9.7 1.5 - 8.1 10/04 MH # /2019 [place] HEMATOLOGY Lymphocytes 1.6 1.0 - 5.5 10/04 MH # /2019 [place] HEMATOLOGY Monocytes # 1.5 0.0 - 0.8 10/ MH /2019 [place] HEMATOLOGY Eosinophils 0.2 0.0 - 0.5 10/ MH # /2019 [place] HEMATOLOGY WBC 13.0 3.7 - 10.4 10/ MH /2019 [place] HEMATOLOGY RBC 3.37 4.70 - 10/04 MH 6.10 /2019 [place] HEMATOLOGY Hgb 11.5 14.0 - 10/04 MH 18.0 /2019 [place] HEMATOLOGY Hct 33.6 42.0 - 10/04 MH 54.0 /2019 [place] HEMATOLOGY MCV 99.7 80.0 - 10/04 MH 94.0 /2019 [place] HEMATOLOGY MCH 34.2 27.0 - 10/04 MH 31.0 /2019 [place] HEMATOLOGY MCHC 34.3 32.0 - 10/04 MH 36.0 [place] HEMATOLOGY RDW 13.2 11.5 - 10/04 MH 14.5 /2019 [place] HEMATOLOGY Platelet 175 133 - 450 10/ [place] HEMATOLOGY MPV 7.2 7.4 - 10.4 10/ [place] CHEM PANEL Glucose Lvl 97 70 - 99 10/03 [place] CHEM PANEL BUN 8 7 - 22 10/03 [place] CHEM PANEL Creatinine 0.64 0.50 - 10/03 MH Lvl 1.40 /2019 [place] CHEM PANEL Sodium Lvl 134 135 - 145 10/ [place] CHEM PANEL Potassium 3.4 3.5 - 5.1 10/ MH Lvl /2019 [place] CHEM PANEL Chloride Lvl 100 95 - 109 10/ [place] CHEM PANEL CO2 25 24 - 32 10/03 [place] CHEM PANEL Calcium Lvl 7.9 8.5 - 10.5 08/25 [place] CHEM PANEL Total 6.7 6.4 - 8.4 08/25 MH [place] CHEM PANEL Albumin Lvl 2.5 3.5 - 5.0 08/25 [place] CHEM PANEL ALT 61 0 - 65 08/25 [place] CHEM PANEL AST 59 0 - 37 08/25 [place] CHEM PANEL Alk Phos 81 39 - 136 08/25 [place] CHEM PANEL Bili Total 1.0 0.2 - 1.3 08/25 [place] CHEM PANEL AGAP 12.4 10.0 - 08/25 MH 20.0 [place] CHEM PANEL B/C Ratio 12 6 - 25 08/25 [place] CHEM PANEL Globulin 4.2 2.7 - 4.2 08/25 [place] CHEM PANEL A/G Ratio 0.6 0.7 - 1.6 08/25 [place] CHEM PANEL eGFR 132 08/25 Result Comment: The [place] eGFR is calculated using the CKD-EPI formula. [...] HEMATOLOGY WBC 13.6 3.7 - 10.4 08/25 [place] HEMATOLOGY RBC 3.46 4.70 - 08/25 MH 6. [place] HEMATOLOGY Hgb 12.1 14.0 - 08/25 MH 18. [place] HEMATOLOGY Hct 34.4 42.0 - 08/25 MH 54.0 [place] HEMATOLOGY MCV 99.3 80.0 - 10/ MH 94.0 /2019 [place] HEMATOLOGY MCH 34.9 27.0 - 10/03 MH 31.0 /2019 [place] HEMATOLOGY MCHC 35.1 32.0 - 10/ MH 36.0 /2019 [place] HEMATOLOGY RDW 12.9 11.5 - 10/03 MH 14.5 /2019 [place] HEMATOLOGY Platelet 143 133 - 450 10 MH [place] HEMATOLOGY MPV 7.4 7.4 - 10.4 10/ MH [place] HEMATOLOGY Segs 81.3 45.0 - 10/03 MH 75.0 /2019 [place] HEMATOLOGY Lymphocytes 8.6 20.0 - 10/03 MH 40.0 /2019 [place] HEMATOLOGY Monocytes 9.7 2.0 - 12.0 10 MH [place] HEMATOLOGY Eosinophils 0.2 0.0 - 4.0 10 MH [place] HEMATOLOGY Basophils 0.2 0.0 - 1.0 10 MH [place] HEMATOLOGY Neutrophils 11.1 1.5 - 8.1 10 MH # [place] HEMATOLOGY Lymphocytes 1.2 1.0 - 5.5 10/ MH # [place] HEMATOLOGY Monocytes # 1.3 0.0 - 0.8 10 MH [place] CHEM PANEL Glucose Lvl 122 70 - 99 08/24 MH [place] CHEM PANEL BUN 11 7 - 22 10 [place] CHEM PANEL Creatinine 0.80 0.50 - 10/ MH Lvl 1.40 [place] CHEM PANEL Sodium Lvl 137 135 - 145 10 MH [place] CHEM PANEL Potassium 3.4 3.5 - 5.1 10/ MH Lvl /2019 [place] CHEM PANEL Chloride Lvl 103 95 - 109 10 MH [place] CHEM PANEL CO2 24 24 - 32 10/ MH [place] CHEM PANEL Calcium Lvl 8.0 8.5 - 10.5 10 MH [place] CHEM PANEL Total 6.5 6.4 - 8.4 10/ MH Protein [place] CHEM PANEL Albumin Lvl 2.7 3.5 - 5.0 10 MH [place] CHEM PANEL ALT 76 0 - 65 10/ MH [place] CHEM PANEL AST 68 0 - 37 10/ MH [place] CHEM PANEL Alk Phos 68 39 - 136 08/24 [place] CHEM PANEL Bili Total 1.2 0.2 - 1.3 08/24 [place] CHEM PANEL AGAP 13.4 10.0 - 08/24 MH 20.0 [place] CHEM PANEL B/C Ratio 14 6 - 25 08/24 [place] CHEM PANEL Globulin 3.8 2.7 - 4.2 08/24 [place] CHEM PANEL A/G Ratio 0.7 0.7 - 1.6 08/24 [place] CHEM PANEL eGFR 120 08/24 Comment: The [place] eGFR is calculated using the CKD-EPI formula. [...] Segs 87.2 45.0 - 08/24 MH 75.0 [place] HEMATOLOGY Lymphocytes 4.9 20.0 - 08/24 MH 40.0 [place] HEMATOLOGY Monocytes 7.7 2.0 - 12.0 08/24 [place] HEMATOLOGY Basophils 0.2 0.0 - 1.0 08/24 [place] HEMATOLOGY Neutrophils 16.2 1.5 - 8.1 08/24 MH # [place] HEMATOLOGY Lymphocytes 0.9 1.0 - 5.5 08/24 MH # [place] HEMATOLOGY Monocytes # 1.4 0.0 - 0.8 08/24 [place] HEMATOLOGY WBC 18.6 3.7 - 10.4 08/24 [place] HEMATOLOGY RBC 3.91 4.70 - 08/24 MH 6.10 [place] HEMATOLOGY Hgb 13.5 14.0 - 08/24 MH 18.0 [place] HEMATOLOGY Hct 38.7 42.0 - 08/24 MH 54.0 [place] HEMATOLOGY MCV 99.0 80.0 - 08/24 MH 94.0 [place] HEMATOLOGY MCH 34.5 27.0 - 08/24 MH 31.0 [place] HEMATOLOGY MCHC 34.9 32.0 - 08/24 MH 36.0 [place] HEMATOLOGY RDW 13.5 11.5 - 08/24 MH 14.5 [place] HEMATOLOGY Platelet 155 133 - 450 08/24 [place] HEMATOLOGY MPV 7.5 7.4 - 10.4 08/24 [place] LIPIDS Trig 320 <=149 08/24 mg/dL [place] CHEM PANEL Lactic Acid 1.5 0.5 - 2.2 08/24 Lvl /2019 [place] IMMUNOLOGY Coronavirus Not Detected Not 08/23 (COVID-19) (08/23/20 5:58 AM) Detected [facility]AN[facility] CHEM PANEL Lipase Lvl 5025 73 - 393 08/23 [place] HEMATOLOGY RBC Morph Normal Normal 08/23 (08/22/20 11:50 PM) [place] and HEMATOLOGY Plt Morph Normal Normal 08/23 (08/22/20 11:50 PM) [place] and LIPIDS Chol 174 <=199 08/23 mg/dL [place] LIPIDS Trig 711 <=149 08/23 mg/dL [place] LIPIDS HDL 28 >=61 mg/dL 08/23 [place] LIPIDS CHD Risk 6.21 4.00 - 08/23 MH 7. [place] LIPIDS LDL See Note <=99 mg/dL 08/23 Result MH (Calculated) mg/dL Comment: LDL [facility] nd cholesterol cannot be calculated due to very high triglycerides (>400 mg/dL). Recommend Direct LDL if clinically indicated. LIPIDS VLDL See Note 5 08/23 Result MH *NA* /2019 Comment: VLDL [place] (08/22/20 11:50 PM) - Cholesterol level cannot be accurately calculated due to very high triglycerides (>400 mg/dL). Pathology Reports No Data Provided for This Section Diagnostic Reports Report Value Date Source Abdomen RUQ US PROCEDURE INFORMATION: 08/23/2020 [facility] Per Exam: US Abdomen, Limited; Right Upper Quadra [...] Roly Garcia MD On 08/23/2020 07:54:40; V [id number] Consultation Notes No Data Provided for This Section Discharge Summaries No Data Provided for This Section History and Physicals No Data Provided for This Section Vital Signs Vital Sign Value Date Comments Source Temperature Oral (F) 98.9 F 08/26/2020 [facility] Heart Rate 103 08/26/2020 [place] Respitory Rate 20 08/26/2020 [place] Systolic (mm Hg) 154 08/26/2020 [place] Diastolic (mm Hg) 97 08/26/2020 [place] Temperature Oral (F) 98.4 F 08/26/2020 [facility]2020 [facility] Systolic (mm Hg) 141 08/26/2020 [facility] Diastolic (mm Hg) 103 08/26/2020 [place] Systolic (mm Hg) 150 08/26/2020 [facility] Diastolic (mm Hg) 102 08/26/2020 [facility] Heart Rate 107 08/26/2020 [facility] Temperature Oral (F) 100.6 F 08/26/2020 [facility] Respitory Rate 18 08/26/2020 [facility] Height 190.5 cm 08/23/2020 [facility] Weight 122.045 08/23/2020 [facility] BMI Calculated 33.63 08/23/2020 [facility] Encounters Location Location Encounter Encounter Reason Attending ADM [place] Source Details Type Number For Provider Date Date [facility] [id number] Jeff 08/23 08/26 Per Isaacs /2019 [facility] Procedures No Data Provided for This Section Assessment and Plan Assessment and Plan Date Source Extracted from:Title: Progress Note 08/26/2020 Carlos moise Author: Jeff Isaacs MD Date: 08/25/20 [...]
--- OUTSIDE RECORDS SUMMARY | 2020-12-17 11:17 | XMS REPORT | Continuity of Care Document ---
:1990 Author Organization [facility] t Address [address] [place] [address] Care Team Providers Name Role Phone Shital Attending Clinician Shital Admitting Clinician Problems Condition Condition Condition Status Onset Resolution Last Treating Co mments Source Name Details Category Date Date Treatment Clinician Date PANCREATIT Diagnosis Active 2020-08-22 Memoria IS 08-22 22:44:00 l 00:00: Per PANCREATIT 00 [facility] Diagnosis Active 2020-08-27 Mem oria ALCOHOLIC 08-22 09:42:00 l PANCREATIT ACUTE 00:00: Sharita nn IS ALCOHOLIC 00 PANCREATIT IS Active 0 [facility] Acute Problem 2020-08-28 Memor ia pancreatit 21:20:21 l is with Acute Per uninfected pancreatit necrosis, is with unspecifie uninfected d necrosis, unspecifie d [facility] Active 2020-08-27 Me moria INDUCED 09:42:00 l ACUTE ALCOHOL [place] PANCREATIT INDUCED IS WITHO ACUTE PANCREATIT IS WITHO Active [facility] ACUTE Diagnosis Active 2020-08-22 Mem oria PANCREATIT 22:44:00 l IS WITH ACUTE Per UNINFECTED PANCREATIT NECRO IS WITH UNINFECTED NECRO Active [facility] Allergies, Adverse Reactions, Alerts Allergy Allergy Status Severity Reaction(s) Onset Inactive Treating Comm ents Source Name Type Date Date Clinician sulfa sulfa Active Memoria drugs drugs l Per Social History Social Habit Start Date Stop Date Quantity Comments Source Social History 2020-08-23 2020-08-23 [facility] 04:06:38 04:06:38 Medications Ordered Filled Start Stop Current Ordering Indication Dosage Frequency Signature Comments Components Source Medication Medication Date Date Medication? Clinician (SIG) Name Name Fenofibrate 2019-11 Yes 145 mg = 1 Memoria 145 MG Oral 0-04 tab, PO, l Tablet 16:30: Daily, # [place] 00 30 tab, 0 Refill(s), Pharmacy: [facility] STORE #[id number], 190.5, cm, 08/22/20 23:01:00 CDT, Height, 122.045, kg, 08/22/20 23:01:00 CDT, Weight omega-3 2019-11 Yes 1 gm = 1 Memori a polyunsatur 0-04 cap, PO, l ated fatty 16:30: BID, # 60 He rmann acids 1000 00 cap, 0 mg oral Refill(s), capsule Pharmacy: [facility] STORE #[id number], 190.5, cm, 08/22/20 23:01:00 CDT, Height, 122.045, kg, 08/22/20 23:01:00 CDT, Weight ciprofloxac 2019-11 Yes 500 mg = 1 Memoria in 500 mg 0-04 tab, PO, l oral tablet 16:26: Q12H, for H ermann 00 UTI, X 3 day, # 6 tab, 0 Refill(s), [id number], 190.5, cm, 08/22/20 23:01:00 CDT, Height, 122.045, kg, 08/22/20 23:01:00 CDT, Weight Metronidazo 2019-11 Yes 500 mg = 1 Memoria le 500 MG 0-04 tab, PO, l Oral Tablet 16:26: Q8H, X 3 He rmann [Flagyl] 00 day, # 9 tab, 0 Refill(s), [id number], 190.5, cm, 08/22/20 23:01:00 CDT, Height, 122.045, kg, 08/22/20 23:01:00 CDT, Weight thiamine 2019-11 Yes 100 mg = 1 Mem oria 100 mg oral 0-04 tab, PO, l tablet 16:26: Daily, X [place] 00 30 day, # 30 tab, 0 Refill(s), [id number], 190.5, cm, 08/22/20 23:01:00 CDT, Height, 122.045, kg, 08/22/20 23:01:00 CDT, Weight Folic Acid 2019-11 Yes 1 mg = 1 Mem oria 1 MG Oral 0-04 tab, PO, l Tablet 16:26: Daily, # Per 00 30 tab, 0 Refill(s), Pharmacy: [facility] STORE #[id number], 190.5, cm, 08/22/20 23:01:00 CDT, Height, 122.045, kg, 08/22/20 23:01:00 CDT, Weight Chlordiazep 2019-11 Yes 10 mg = 1 M emoria oxide 0-04 cap, PO, l Hydrochlori 16:26: QID, X 3 He rmann de 10 MG 00 day, # 12 Oral cap, 0 Capsule Refill(s), Pharmacy: [facility] STORE #[id number], 190.5, cm, 08/22/20 23:01:00 CDT, Height, 122.045, kg, 08/22/20 23:01:00 CDT, Weight Lorazepam 1 2019-11 Yes 1 mg = 1 Me moria MG Oral 0-04 tab, PO, l Tablet 16:26: TID, PRN [place] [Ativan] 00 as needed for anxiety, X 7 day, # 24 tab, 0 Refill(s), Pharmacy: [facility] STORE #[id number], 190.5, cm, 08/22/20 23:01:00 CDT, Height, 122.045, kg, 08/22/20 23:01:00 CDT, Weight Famotidine 2019-11 Yes 20 mg = 1 Me moria 20 MG Oral 0-04 tab, PO, l Tablet 16:26: Q12H, # 14 Sharita nn [Pepcid] 00 tab, 0 Refill(s), Pharmacy: [facility] STORE #[id number], 190.5, cm, 08/22/20 23:01:00 CDT, Height, 122.045, kg, 08/22/20 23:01:00 CDT, Weight labetalol 2019-11 Yes 100 mg = 1 Me moria 100 mg oral 0-04 tab, PO, l tablet 16:26: TID, # 90 Bakari n 00 tab, 0 Refill(s), Pharmacy: [facility] #[id number], 190.5, cm, 08/22/20 23:01:00 CDT, Height, 122.045, [...] s with feeding tube less than 14 Faro[place] (Dobhoff, J-tube etc) and pediatric and patients. [...] phosphate 0-03 Infuse l 16:35: over 4 [place] 00 hour. Do not infuse phosphorou s concurrent ly in the same line as TPN or IVF that contains calcium. For double lumen central lines, phosphorou s may be infused in a separate lumen from TPN. Magnesium 2019-11 No Notes: Memori a Sulfate 0-03 WASTE: F/P l 16:35: - Sink; E [place] 00 - Municipal Trash Bin Magnesium 2019-11 No Notes: Memori a Oxide 0-03 (Same as: l 16:35: Mag-Ox Per 00 400) Magnesium oxide 248eu=970d g elemental magnesium Dose=____m g magnesium oxide (___mg elemental magnesium) Calcium 2019-11 No Notes: Memoria Gluconate 0-03 WASTE: F/P l 16:35: - Sink; E [place] 00 - Municipal Trash Bin Potassium 2019-11 No Notes: Memori a Chloride 0-03 (Same as: l 1.33 MEQ/ML 16:34: Potassium H ermann Oral 00 Chloride) Solution Labetalol 2019-11 No Notes: Memori a 0-03 With food. l 15:00: (Same Per 00 as:Trandat e, Normodyne) Lactulose 2019-11 No Notes: Memori a 667 MG/ML 0-02 (Same l Oral 21:03: as:Chronul Per Solution 00 ac) Haldol 2019-11 No Notes: Memoria 0-02 (Same as: l 21:03: Haldol) Per Ciprofloxac 2019-11 No Notes: Do M emoria in 0-02 not l 14:00: refrigerat [place] 00 e Flagyl 2019-11 No Notes: Memoria 0-02 (Same as: l 14:00: Flagyl) Per Avoid alcohol. Famotidine 2019-11 No Notes: Memor ia 20 MG Oral 0-02 (Same as: l Tablet 02:00: Pepcid) Per [Pepcid] 00 168 HR 2019-11 No Notes: Memoria Clonidine 0-02 Patch l 0.51659 02:00: delivers Bakari n MG/HR 00 0.2 mg/24 Transdermal hours; Patch Patch is applied weekly. "Remove old patch before applicatio n of new patch" (Same As: Catapres-T TS-2) Labetalol 2019-11 No Notes: Memori a 0-02 (Same as: l 01:41: Normodyne, [place] 00 Trandate) Push over 2 minutes Give [...] 0-01 Same as l 13:00: Merrem Lovenox 2020-1 No Notes: Memoria 0-01 (Same as: l 13:00: Lovenox) Metoprolol 2019-11 No Notes: Memor ia 0-01 (Same as: l 07:07: Lopressor) Push over 2 minutes lisinopril 2019-11 Yes 10 mg = 1 Me moria 10 mg oral 0-01 tab, PO, l tablet 04:14: Daily, # 30 tab, 0 Refill(s) NS (Bolus) 2019-11 [...] 0-01 Route: IM, l 04:10: Drug form: PDR/INJ, PRN, Dosing Weight 122.045, kg, PRN Blood Glucose Results, Start date: 08/22/20 23:10:00 CDT, Duration: 30 day, Stop date: 09/21/20 23:09:00 CDT, 0 Ondansetron 2019-11 No Notes: Reagan sharonda 0-01 (Same as: l 04:10: Zofran) [place] 00 MEDICATION WASTE Product Size: 4 mg Product Wasted: ___ mg Vital Signs Vital Name Observation Time Observation Value Comments Source Temperature Oral (F) 2020-08-26 13:00:00 98.9 F [facility] Per Heart Rate 2020-08-26 13:00:00 [facility] [place] Respitory Rate 2020-08-26 13:00:00 Memori al [place] Systolic (mm Hg) 2020-08-26 13:00:00 Reagan rial [place] Diastolic (mm Hg) 2020-08-26 13:00:00 Mem orial [place] Temperature Oral (F) 2020-08-26 09:00:00 98.4 F [facility] Per Heart Rate 2020-08-26 09:00:00 [facility] Per Respitory Rate 2020-08-26 09:00:00 Memori al [place] Systolic (mm Hg) 2020-08-26 09:00:00 Reagan rial Per Diastolic (mm Hg) 2020-08-26 09:00:00 Mem orial Per Systolic (mm Hg) 2020-08-26 07:30:00 Reagan rial [place] Diastolic (mm Hg) 2020-08-26 07:30:00 Mem orial Per Heart Rate 2020-08-26 07:30:00 [facility] Per Temperature Oral (F) 2020-08-26 05:00:00 100.6 F [facility] [place] Respitory Rate 2020-08-26 05:00:00 Memori al Per Height 2020-08-23 04:01:00 190.5 cm [facility] [place] Weight 2020-08-23 04:01:00 [facility] [place] BMI Calculated 2020-08-23 04:01:00 Memori al Per Procedures This patient has no known procedures. Encounters Start End Encounter Admission Attending Care Care Encounter Source Date/Time Date/Time Type Type Clinicians Facility Department ID 2020-08-22 Inpatient [facility] [id number] [facility] L 22:35:00 2020-08-22 2020-08-26 [id number] 22:35:00 13:15:00 Jeff 74 2020-08-22 2020-08-26 Outpatient Shital [facility] [id number] 22:35:00 13:15:00 Jeff 74 Results Test [...] B/C Ratio) 12 1 6-25 [facility] [id number] 09:37:004.1[facility] PANEL 2020-08-26 09:37:00 Test Item Value Reference Range Interpretation Comments A/G Ratio (test code = A/G Ratio) 0.6 1 0.7-1.6 [facility] [id number] 09:37:31128Jlhuhdyc HermannHEMATOLOGY 2020-08-26 09:37:0074.5[facility] RymhpgvMAQDBYWOJS0185-61-14 09:37:0012.0[facility] WypeicbZXFICKIMYW3913-02-70 09:37:0011.7[facility] IicouenSYJRLHGNPR3132-41-88 09:37:001.6[facility] HusbtfgFJQBTZXRIM1900-33-63 09:37:000.2[facility] [place] ROGUXVSZWP6744-79-96 09:37:009.7[facility] FpnwrhmSVDWIYIWXN0046-97-53 09:37:001.6 [facility] RvijilaFYXXNHWQDG8198-11-52 09:37:001.5[facility]annHEMATOLOGY 2020-08-26 09:37:000.2[facility] WpgvlcmIPTTFOCYPU3556-73-38 09:37:0013.0[facility] MiootwlYEZTYSFCWW4805-50-72 09:37:003.37[facility] UkbjjhtJQQOINQDJF7894-20-68 09:37:0011.5[facility] VatvrjwMHPHIITCPI9754-96-77 09:37:0033.6[facility] Per BRDKEFIJYA8871-77-58 09:37:0099.7[facility] XnvajsoWDSGIHVENN9371-52-88 09:37:00 Test Item Value Reference Range Interpretation Comments MCH (test code = MCH) 34.2 pg 27.0-31.0 [facility] CnyydzwLPSNFRHXBD2343-82-10 09:37:0034.3[facility]annHEMATOLOGY 2020-08-26 09:37:0013.2[facility] LaihrvgYFBGJMFKZP9945-19-37 09:37:32101Wtunhkxl VtkaglqUSYOXNFJWT2997-70-30 09:37:007.2[facility]annCHEM OVGQL8496-08-24 09:35:0097[facility]annCHE[facility] RRCQB0173-17-30 09:35:008[facility]annCHE[facility] RSXII1198-50-85 09:35:000.64[facility]annCHEM FDXBP4497-82-18 09:35:79508 [facility] ZHQYU0703-30-13 09:35:003.4[facility]annCHEM PANEL 2020-08-25 09:35:97892Xsaazbed HermannCHEM AJVWD3034-72-21 09:35:0025[facility]annCHE[facility] QFTWG5046-75-44 09:35:007.9[facility]annCHEM KASFO4610-07-00 09:35:006.7[facility]annCHE[facility] ZVWLI8545-64-79 09:35:002.5[facility]annCHE[facility] GKVDW4822-08-42 09:35:0061[facility]annCHE[facility] XRIAL9385-43-51 09:35:0059 [facility] PRRZZ5106-21-55 09:35:0081[facility]annCHEM PANEL 2020-08-25 09:35:001.0[facility]annCHEM QCJFE6961-08-30 09:35:0012.4[facility]annCHEM CWTZZ0676-70-03 09:35:00 Test Item Value Reference Range Interpretation Comments B/C Ratio (test code = B/C Ratio) 12 1 6-25 [facility] [id number] 09:35:004.2[facility] HermannCHEM PANEL 2020-08-25 09:35:00 Test Item Value Reference Range Interpretation Comments A/G Ratio (test code = A/G Ratio) 0.6 1 0.7-1.6 [facility]annCHE[facility] [id number] 09:35:43036Edlrsqsf HermannHEMATOLOGY 2020-08-25 09:35:0013.6[facility] EelfdwyOZVIEYVCJP8164-85-10 09:35:003.46[facility] VcgtikyRWYDEKTNEA8152-56-42 09:35:0012.1[facility] SegoujnMLICNYGFJM9080-74-57 09:35:0034.4[facility] HgbbezqIZUDBRTTTN6186-60-37 09:35:0099.3[facility] [place] QNJATAZMVV0752-48-79 09:35:00 Test Item Value Reference Range Interpretation Comments MCH (test code = MCH) 34.9 pg 27.0-31.0 [facility] GbqhjcgHMKRNBLAXV4639-86-36 09:35:0035.1[facility]annHEMATOLOGY 2020-08-25 09:35:0012.9[facility] KcekxinFAWFKMDFIU4503-56-95 09:35:22355Avnvdavl VheylqgOXGCTMXOBP7560-49-24 09:35:007.4[facility] RlspulyZRFOLQQNYA2375-41-70 09:35:0081.3[facility] HixupkxPNLUFTUQNV7825-05-09 09:35:008.6[facility] Per BUHGDEMCHJ5002-28-59 09:35:009.7[facility] KdaijdsYMDXPTVSTM7699-47-56 09:35:000.2 [facility] CpamhnfLWMFRFEATW2993-40-57 09:35:000.2[facility] HermannHEMATOLOGY 2020-08-25 09:35:0011.1[facility] PuwwejaUEDWMWHHRY3066-00-33 09:35:001.2[facility] ClxtiszXUXWPCQLVN8261-33-07 09:35:001.3[facility] HermannCHEM SFWOK7927-87-33 09:44:32434Jijdncxf HermannCHEM MPFJC2343-95-87 09:44:0011[facility]annCHEM RBTGX7663-30-44 09:44:000.80[facility] HermannCHEM WEUMR8648-91-77 09:44:09607 [facility]annCHEM TEMHE9608-27-32 09:44:003.4[facility] HermannCHEM PANEL 2020-08-24 09:44:94492Njvjuybb HermannCHEM RXEMB1465-65-35 09:44:0024[facility]annCHEM ONYUP3861-31-86 09:44:008.0[facility]annCHEM NVVAB6794-40-29 09:44:006.5[facility]annCHEM LJGHH8018-35-69 09:44:002.7[facility]annCHEM GRMFL6956-66-91 09:44:0076[facility]annCHEM LAZYL8179-12-82 09:44:0068 [facility]CHE[facility] YAXMW0232-99-04 09:44:0068[facility]annCHEM PANEL 2020-08-24 09:44:001.2[facility]annCHEM GSJYY6202-02-50 09:44:0013.4[facility]annCHEM ZPYZO6746-91-82 09:44:00 Test Item Value Reference Range Interpretation Comments B/C Ratio (test code = B/C Ratio) 14 1 6-25 [facility] VRFXN5832-33-14 09:44:003.8[facility]annCHEM PANEL 2020-08-24 09:44:00 Test Item Value Reference Range Interpretation Comments A/G Ratio (test code = A/G Ratio) 0.7 1 0.7-1.6 [facility]annCHE[facility] [id number] 09:44:15192Zmlhmozj HermannHEMATOLOGY 2020-08-24 09:44:0087.2[facility] LofgxktVWIPEBQQWO9665-57-48 09:44:004.9[facility] YsifyrkOSSAADNITS7372-30-60 09:44:007.7[facility] GuvbfoeEWFOKOMQTQ5272-32-84 09:44:000.2[facility] TofhylvLLNQOXSLOW7496-42-34 09:44:0016.2[facility] [place] UPMPSCLNOU7300-08-87 09:44:000.9[facility] UmqrrkaFXUKZFFYKH4387-17-02 09:44:001.4 [facility] ZbomcnkOIPVBTPSOG0989-10-74 09:44:0018.6[facility] HermannHEMATOLOGY 2020-08-24 09:44:003.91[facility] MszzjtfSVOLKUZELA8971-47-65 09:44:0013.5[facility] AllbfrmFDPAUOYEXE2663-26-81 09:44:0038.7[facility] ZledqnxEALSSHWGXP3564-09-82 09:44:0099.0[facility] YjjjpwsATORLAOCDH6689-40-76 09:44:00 Test Item Value Reference Range Interpretation Comments MCH (test code = MCH) 34.5 pg 27.0-31.0 [facility] ZgzdtfoWBQUCULNIY0620-88-02 09:44:0034.9[facility] HermannHEMATOLOGY 2020-08-24 09:44:0013.5[facility] HdpdxmiVNYLPSCVBI9391-60-17 09:44:24212Ipchodqe XalydgbKSWGYBTVOF3518-97-78 09:44:007.5[facility] PbrnyonFIVTUQ3773-56-85 09:44:00 320[facility]annCHEM HOENM1027-53-29 02:13:001.5[facility] HermannIMMUNOLOGY 2020-08-23 10:58:00Not Detected (08/23/20 5:58 AM)[facility]annCHEM PANEL 2020-08-23 04:50:614737Ibyacily BpmvjmgZZBYKLWDTG2719-83-39 04:50:00Normal (08/22/20 11:50 PM)[facility] DgoyusjKVAJYWHPWA8274-07-55 04:50:00Normal (08/22/20 11:50 PM)[facility] YujncecWCULAJ8005-79-54 04:50:92255Xrxekvss HermannLIPIDS 2020-08-23 04:50:10648Pjihhdul JecvwurSQWGGT4555-09-82 04:50:0028[facility] TkpgfweLIJRCI8307-25-83 04:50:00 Test Item Value Reference Range Interpretation Comments CHD Risk (test code = CHD Risk) 6.21 1 4.00-7.30 [facility] NvbjrnyROMQOJ8901-42-14 04:50:00See Note 5*NA*(08/22/20 11:50 PM) [facility] [place]
--- NOTE | 2020-12-17 11:38 | RAD REPORT ---
EXAM DESCRIPTION: RAD - Shoulder Right 2 View - 12/17/2020 10:55 am CLINICAL HISTORY: seizure fall;Pain COMPARISON: No comparisons FINDINGS: There appears to be a dislocation of the humeral head, presumably anteriorly in a subcorac oid location. A lateral view could be obtained for confirmation of the location of the humeral head i n relation to the glenoid. Suspected fracture the greater tuberosity also seen.
--- NOTE | 2020-12-17 11:41 | EDPHYS ---
Physician Documentation [facility] Name: Mc Barrios Age: 30 yrs Sex: Male : 1990 Arrival Date: 12/17/2020 Time: 10:04 Bed 4 Private MD: ED Physician Garrett Ferguson HPI: 12/17 11:07 This 30 yrs old Male presents to ER via EMS with complaints of Seizure, rn Alcohol Withdrawal. 11:07 The patient presents after having a single isolated seizure. Character of seizure(s): rn Loss of consciousness: it is not known if the patient experienced loss of consciousness, Motor activity: generalized, Circulation: the patient did not experience evidence of pulse disturbance. Seizure onset: just prior to arrival. Associated injury: Right upper extremity: decreased range of motion, pain. The patient has not experienced similar symptoms in the past. Reports alcoholic, last drink 2 days ago, no previous seizures, 911 called for seizure, no other medical problems, reports right shoulder pain.. Historical: - Allergies: 10:06 Sulfa (Sulfonamide Antibiotics); sv - Home Meds: 16:27 Lexapro 10 mg Oral tab 1 tab nightly [Active]; lisinopril 30 mg oral tab once daily sv [Active]; hydroxyzine HCl 10 mg Oral tab BID prn [Active]; - PMHx: 10:06 Hypertension; sv - PSHx: 10:06 Hernia repair; sv - Immunization history:: Adult Immunizations up to date. - Family history:: not pertinent. - Social history:: Smoking status: Reported history of juuling and/or vaping. - Hospitalizations: : No recent hospitalization is reported. ROS: 11:07 Constitutional: Negative for fever, chills, and weight loss, Eyes: Negative for injury, rn pain, redness, and discharge, Neck: Negative for injury, pain, and swelling, Cardiovascular: + palpitations Respiratory: Negative for shortness of breath, cough, wheezing, and pleuritic chest pain, Abdomen/GI: Negative for abdominal pain, nausea, vomiting, diarrhea, and constipation, Back: Negative for injury and pain, MS/Extremity: + right shoulder pain Skin: Negative for injury, rash, and discoloration, Neuro: + seizure Exam: 11:07 Constitutional: This is a well developed, well nourished patient who is awake, alert, rn diaphoretic Head/Face: Normocephalic, atraumatic. ENT: dry MM Cardiovascular: Tachycardic, regular Respiratory: No increased work of breathing, no retractions or nasal flaring. Abdomen/GI: soft, non-tender Skin: Diaphoretic MS/ Extremity: Pulses equal, no cyanosis. + right shoulder painful ROM, absent glenoid Neuro: Awake and alert, GCS 15, oriented to person, place, time, and situation. Cranial nerves II-XII grossly intact. Motor strength 5/5 in all extremities. Sensory grossly intact. Vital Signs: 10:05 BP 158 / 104; Pulse 113; Resp 17; Temp 98.2(O); Pulse Ox 97% ; sv 10:09 Weight 117 kg; Height 6 ft. 3 in. (190.50 cm); sv 11:17 Pulse 122; Resp 22; Pulse Ox 93% on R/A; sv 11:35 BP 145 / 111; Pulse 118; Resp 29; Pulse Ox 95% on 3 lpm NC; sv 12:00 BP 134 / 111; Pulse 120; Resp 28; Pulse Ox 96% on 3 lpm NC; sv 12:30 BP 149 / 114; Pulse 116; Resp 28; Pulse Ox 94% on 3 lpm NC; sv 13:27 BP 145 / 104; Pulse 117; Resp 26; Pulse Ox 98% 3 lpm ; sv 14:03 BP 168 / 111; Pulse 115 MON; Resp 25; Pulse Ox 96% on 3 lpm NC; sv 14:36 BP 151 / 112; Pulse 112; Resp 27; Pulse Ox 97% on 3 lpm NC; sv 15:00 BP 154 / 100; Pulse 109; Resp 26; Pulse Ox 97% on 3 lpm NC; sv 16:00 BP 152 / 108; Pulse 105; Resp 20; Pulse Ox 100% on 3 lpm NC; sv 10:09 Body Mass Index 32.24 (117.00 kg, 190.50 cm) sv 14:03 Sinus tachycardia sv Karen Coma Score: 10:08 Eye Response: spontaneous(4). Verbal Response: oriented(5). Motor Response: obeys sv commands(6). Total: 15. Procedures: 11:33 Reduction: of the right shoulder, using traction/countertraction with sheet, rn Immobilized with sling, Patient tolerated well. Post reduction film - reveals normal alignment. Moderate sedation: Pre-procedure assessment: the patient has been NPO 4 hour(s) prior to arrival, ASA physical classification: I - healthy, no underlying organic disease, Airway assessment: able to hyperextend neck, able to maintain airway, can open mouth without difficulty, Monitoring during procedure: public relations officer, continuous pulse oximetry, nurse at bedside at all times, Medications employed: Etomidate, 5 mg(s), Post-procedure assessment: the patient is mildly sedated, Respiratory status: even and unlabored, a reversal agent was not used. MDM: 10:07 Patient medically screened. rn 10:53 ED course: Xray shows shoulder dislocation, will attempt to sedate but anticipate rn difficulty given 4mg ativan didn't even touch him and if DTs.. 11:36 Differential diagnosis: seizure, alcohol withdrawal, DT. rn 11:37 Data reviewed: vital signs, nurses notes, lab test result(s), EKG, radiologic studies, rn plain films, and as a result, I will admit patient. Counseling: I had a detailed discussion with the patient and/or guardian regarding: the historical points, exam findings, and any diagnostic results supporting the discharge/admit diagnosis, lab results, radiology results, the need for further work-up and treatment in the hospital. Response to treatment: the patient's symptoms have markedly improved after treatment, and as a result, I will admit patient. Admission orders: after a detailed discussion of the patient's condition and case, the admit orders are written by me. ED course: Shoulder educed, tolerated well, will admit to Dr. Rivas for Delirium tremens and alcohol withdrawal seizure.. 12/17 10:09 Order name: CBC with Diff rn 12/17 10:09 Order name: Basic Metabolic Panel rn 12/17 10:09 Order name: LFT's rn 12/17 10:09 Order name: ETOH Level rn 12/17 10:09 Order name: Lipase rn 12/17 10:41 Order name: Alcohol Serum/Plasma; Complete Time: 11: EDOR 12/17 11:02 Order name: Basic Metabolic Panel; Complete Time: : EDOR 12/17 11:02 Order name: Liver (Hepatic) Function; Complete Time: : EDOR 12/17 11:02 Order name: Lipase; Complete Time: : EDMS 12/17 11:09 Order name: CBC with Automated Diff; Complete Time: 11:34 EDMS 12/17 13:52 Order name: COVID-19 bd 12/17 15:12 Order name: SARS-COV-2 RT PCR; Complete Time: 23:28 EDMS 12/17 16:31 Order name: CORONAVIRUS EDMS 12/18 04:37 Order name: CBC with Automated Diff EDMS 12/17 10:09 Order name: XRAY Shoulder RIGHT 2 view rn 12/17 10:09 Order name: EKG; Complete Time: 10:10 rn 12/17 11:37 Order name: XRAY Shoulder (1 View) rn 12/17 11:40 Order name: RAD; Complete Time: 11:43 EDMS 12/17 12:16 Order name: RAD; Complete Time: 14:16 EDMS 12/18 04:45 Order name: Protime (+INR) EDMS 12/18 04:45 Order name: PTT, Activated Partial Thromb EDOR 12/18 05:00 Order name: Comprehensive Metabolic Panel EDOR 12/18 05:04 Order name: CBC Smear Scan EDOR 12/17 10:09 Order name: IV Start; Complete Time: 11:17 rn 12/17 10:09 Order name: EKG - Nurse/Tech; Complete Time: 11:32 rn Administered Medications: 10:15 Drug: Lactated Ringers Solution 1000 ml Route: IV; Rate: 1000 bolus; Site: left dm5 antecubital; 15:03 Follow up: Response: No adverse reaction; IV Status: Completed infusion; IV Intake: sv 1000ml 10:15 Drug: Ativan 2 mg Route: IVP; Site: left antecubital; dm5 10:30 Follow up: Response: No adverse reaction; No change in condition; RASS: Agitated (+2) sv 10:17 Drug: Zofran (Ondansetron) 4 mg Route: IVP; Site: left antecubital; dm5 10:45 Follow up: Response: No adverse reaction; Marked relief of symptoms sv 10:28 Drug: Ativan 2 mg Route: IVP; Site: left hand; dm5 11:00 Follow up: Response: No adverse reaction; No change in condition; RASS: Agitated (+2) sv 11:14 Drug: Ativan 4 mg Route: IVP; Site: left hand; sv 11:28 Follow up: Response: No adverse reaction; No change in condition; RASS: Restless (+1) sv 14:14 Drug: Banana Bag - (NS 0.9% 1000 ml, foLIC Acid 1 mg, Thiamine 100 mg, Multivitamin 1 sv amp) Route: IV; Rate: calculated rate; Site: left hand; 14:20 Drug: morphine 4 mg {Note: rass1.} Route: IVP; Site: left hand; sv 14:35 Follow up: Response: No adverse reaction; Marked relief of symptoms; Pain is decreased; sv RASS: Light sedation (-2) Disposition: 12/17/20 11:40 Hospitalization ordered by Arnold Rivas for Inpatient Admission. Preliminary diagnosis are Alcohol dependence with withdrawal delirium, Other dislocation of right shoulder joint, Dehydration, Non-epileptic seizure. - Bed requested for Telemetry/MedSurg (Inpatient). - Status is Inpatient Admission. sv - Condition is Fair. - Problem is new. - Symptoms have improved. Critical care time excluding procedures: 11:37 Critical care time: Bedside Care: 30 minutes. Total time: 30 minutes rn Signatures: Dispatcher [employer] EDMS Molly Dorsey Deana RN MARTÍN dmCoral Cee RN RN sv Nieto, Roman, MD MD rn Baxter, Heather, RN RN hb Singer, Phillip, MD MD ps1 Corrections: (The following items were deleted from the chart) 15:50 11:40 Hospitalization Ordered by Arnold Rivas MD for Inpatient Admission. Preliminary bd diagnosis is Alcohol dependence with withdrawal delirium; Other dislocation of right shoulder joint; Dehydration; Non-epileptic seizure. Bed requested for Intensive Care Unit. Status is Inpatient Admission. Condition is Fair. Problem is new. Symptoms have improved. rn 15:54 15:50 12/17/2020 11:40 Hospitalization Ordered by Arnold Rivas MD for Inpatient bd Admission. Preliminary diagnosis is Alcohol dependence with withdrawal delirium; Other dislocation of right shoulder joint; Dehydration; Non-epileptic seizure. Bed requested for Telemetry/MedSurg (Inpatient). Status is Inpatient Admission. Condition is Fair. Problem is new. Symptoms have improved. bd 12/18 08:01 12/17 15:54 12/17/2020 11:40 Hospitalization Ordered by Arnold Rivas MD for Inpatient bd Admission. Preliminary diagnosis is Alcohol dependence with withdrawal delirium; Other dislocation of right shoulder joint; Dehydration; Non-epileptic seizure. Bed requested for [facility] ER HOLD. Status is Inpatient Admission. Condition is Fair. Problem is new. Symptoms have improved. bd 12/18 09:02 08:01 12/17/2020 11:40 Hospitalization Ordered by Arnold Rivas MD for Inpatient sv Admission. Preliminary diagnosis is Alcohol dependence with withdrawal delirium; Other dislocation of right shoulder joint; Dehydration; Non-epileptic seizure. Bed requested for Telemetry/MedSurg (Inpatient). Status is Inpatient Admission. Condition is Fair. Problem is new. Symptoms have improved. bd
--- NOTE | 2020-12-17 11:41 | ER ---
Nurse's Notes [facility] Name: Mc Barrios Age: 30 yrs Sex: Male : 1990 Arrival Date: 12/17/2020 Time: 10:04 Bed 4 Private MD: Diagnosis: Alcohol dependence with withdrawal delirium;Other dislocation of right shoulder joint;Dehydration;Non-epileptic seizure Presentation: 12/17 10:05 Chief complaint: EMS states: witnessed seizure by pt's mother after pt had vomited, c/o sv right shoulder pain. Pt reports that he stopped drinking alcohol 2 days ago "cold turkey" and does not have hx of seizure. Coronavirus screen: Client denies travel out of the [place] in the last 14 days. At this time, the client does not indicate any symptoms associated with coronavirus-19. Ebola Screen: No symptoms or risks identified at this time. Initial Sepsis Screen: Does the patient meet any 2 criteria? HR > 90 bpm. No. Patient's initial sepsis screen is negative. Does the patient have a suspected source of infection? No. Patient's initial sepsis screen is negative. Risk Assessment: Do you want to hurt yourself or someone else? Patient reports no desire to harm self or others. Onset of symptoms was December 17, 2020. 10:05 Method Of Arrival: EMS: [facility] sv 10:05 Acuity: ROSCOE 2 sv Triage Assessment: 10:08 General: Appears in no apparent distress. uncomfortable, obese, well developed, sv Behavior is calm, cooperative, appropriate for age. Pain: Complains of pain in anterior aspect of right shoulder. Neuro: Level of Consciousness is awake, alert, obeys commands, Oriented to person, place, time, situation, Moves all extremities. Speech is normal. Cardiovascular: Rhythm is sinus tachycardia. Respiratory: Airway is patent Respiratory effort is even, unlabored, Respiratory pattern is regular, symmetrical. Derm: Skin is intact, Skin is pink, warm \\T\\ dry. Musculoskeletal: Range of motion: limited in right shoulder. Historical: - Allergies: 10:06 Sulfa (Sulfonamide Antibiotics); sv - Home Meds: 16:27 Lexapro 10 mg Oral tab 1 tab nightly [Active]; lisinopril 30 mg oral tab once daily sv [Active]; hydroxyzine HCl 10 mg Oral tab BID prn [Active]; - PMHx: 10:06 Hypertension; sv - PSHx: 10:06 Hernia repair; sv - Immunization history:: Adult Immunizations up to date. - Family history:: not pertinent. - Social history:: Smoking status: Reported history of juuling and/or vaping. - Hospitalizations: : No recent hospitalization is reported. Screenin:08 Abuse screen: Denies threats or abuse. Denies injuries from another. Nutritional sv screening: No deficits noted. Tuberculosis screening: No symptoms or risk factors identified. Fall Risk None identified. Assessment: 10:28 Reassessment: Patient appears in no apparent distress at this time. No changes from sv previously documented assessment. Patient and/or family updated on plan of care and expected duration. Pain level reassessed. Patient is alert, oriented x 3, equal unlabored respirations, skin warm/dry/pink. 11:14 Reassessment: Patient appears in no apparent distress at this time. No changes from sv previously documented assessment. Patient and/or family updated on plan of care and expected duration. Pain level reassessed. Patient is alert, oriented x 3, equal unlabored respirations, skin warm/dry/pink. 11:28 Reassessment: Conscious sedation started, see conscious sedation flow sheet. sv 12:00 Reassessment: Patient appears in no apparent distress at this time. Patient and/or sv family updated on plan of care and expected duration. Pain level reassessed. Patient states feeling better. Patient states symptoms have improved. 13:00 Reassessment: Patient appears in no apparent distress at this time. Patient and/or sv family updated on plan of care and expected duration. Pain level reassessed. 14:04 Reassessment: Patient appears in no apparent distress at this time. Patient and/or sv family updated on plan of care and expected duration. Pain level reassessed. Patient is alert, oriented x 3, equal unlabored respirations, skin warm/dry/pink. Patient states feeling better. Patient states symptoms have improved. 14:14 Reassessment: Patient appears in no apparent distress at this time. Patient and/or sv family updated on plan of care and expected duration. Pain level reassessed. Patient is alert, oriented x 3, equal unlabored respirations, skin warm/dry/pink. 15:03 Reassessment: Patient appears in no apparent distress at this time. Patient states sv feeling better. Patient states symptoms have improved. 15:48 Reassessment: Dr Rivas at the bedside. sv 16:00 Reassessment: Patient appears in no apparent distress at this time. No changes from sv previously documented assessment. Patient and/or family updated on plan of care and expected duration. Pain level reassessed. Patient is alert, oriented x 3, equal unlabored respirations, skin warm/dry/pink. 12/18 06:35 Reassessment: Francisca (MOM) can be reached at [phone]. sg Vital Signs: 12/17 10:05 BP 158 / 104; Pulse 113; Resp 17; Temp 98.2(O); Pulse Ox 97% ; sv 10:09 Weight 117 kg; Height 6 ft. 3 in. (190.50 cm); sv 11:17 Pulse 122; Resp 22; Pulse Ox 93% on R/A; sv 11:35 BP 145 / 111; Pulse 118; Resp 29; Pulse Ox 95% on 3 lpm NC; sv 12:00 BP 134 / 111; Pulse 120; Resp 28; Pulse Ox 96% on 3 lpm NC; sv 12:30 BP 149 / 114; Pulse 116; Resp 28; Pulse Ox 94% on 3 lpm NC; sv 13:27 BP 145 / 104; Pulse 117; Resp 26; Pulse Ox 98% 3 lpm ; sv 14:03 BP 168 / 111; Pulse 115 MON; Resp 25; Pulse Ox 96% on 3 lpm NC; sv 14:36 BP 151 / 112; Pulse 112; Resp 27; Pulse Ox 97% on 3 lpm NC; sv 15:00 BP 154 / 100; Pulse 109; Resp 26; Pulse Ox 97% on 3 lpm NC; sv 16:00 BP 152 / 108; Pulse 105; Resp 20; Pulse Ox 100% on 3 lpm NC; sv 10:09 Body Mass Index 32.24 (117.00 kg, 190.50 cm) sv 14:03 Sinus tachycardia sv Karen Coma Score: 10:08 Eye Response: spontaneous(4). Verbal Response: oriented(5). Motor Response: obeys sv commands(6). Total: 15. ED Course: 10:04 Patient arrived in ED. sv 10:04 Coral Gonzalez RN is Primary Nurse. sv 10:06 Triage completed. sv 10:06 Arm band placed on. sv 10:07 Garrett Ferguson MD is Attending Physician. rn 10:07 Maintain EMS IV. Dressing intact. Site clean \\T\\ dry. Gauge \\T\\ site: 20G L AC. sv 10:08 Patient has correct armband on for positive identification. Bed in low position. Call sv light in reach. Side rails up X2. Seizure precautions initiated. secured entrance monitor on. Pulse ox on. NIBP on. Door closed. Head of bed elevated. 10:25 Inserted saline lock: 20 gauge in left hand, using aseptic technique. Flushed left hand dm5 with 5 ml normal saline. 10:29 Lipase Sent. dm5 10:29 ETOH Level Sent. dm5 10:29 LFT's Sent. dm5 10:29 Basic Metabolic Panel Sent. dm5 10:29 CBC with Diff Sent. dm5 11:15 Consent for conscious sedation explained by staff, explained by physician, signed by sv patient. 11:17 XRAY Shoulder RIGHT 2 view Sent. sv 11:20 Oxygen administration via non-rebreather mask \\T\\ 15L/min Response to oxygen therapy: sv symptoms improved. 11:30 Assist provider with reduction of right shoulder using manipulation, Set up for sv procedure. Performed by Garrett Ferguson MD Immobilized with shoulder immobilizer Patient tolerated well. 11:31 EKG done, by ED staff, reviewed by Garrett Ferguson MD. 5 11:38 Arnold Rivas MD is Hospitalizing Provider. rn 11:43 X-ray(s) taken. sv 13:30 XRAY Shoulder (1 View) Sent. sv 14:10 COVID-19 Sent. sv 15:03 Awaiting bed assignment. sv 16:30 Patient admitted, IV remains in place. intact. sv 17:32 CORONAVIRUS Sent. sv 19:16 Primary Nurse role handed off by Coral Gonzalez RN mw2 20:32 Florin Cool RN is Primary Nurse. rv 12/18 07:03 Primary Nurse role handed off by Florin Cool RN sv 07:03 Coral Gonzalez, MARTÍN is Primary Nurse. sv Administered Medications: 12/17 10:15 Drug: Lactated Ringers Solution 1000 ml Route: IV; Rate: 1000 bolus; Site: left dm5 antecubital; 15:03 Follow up: Response: No adverse reaction; IV Status: Completed infusion; IV Intake: sv 1000ml 10:15 Drug: Ativan 2 mg Route: IVP; Site: left antecubital; dm5 10:30 Follow up: Response: No adverse reaction; No change in condition; RASS: Agitated (+2) sv 10:17 Drug: Zofran (Ondansetron) 4 mg Route: IVP; Site: left antecubital; dm5 10:45 Follow up: Response: No adverse reaction; Marked relief of symptoms sv 10:28 Drug: Ativan 2 mg Route: IVP; Site: left hand; dm5 11:00 Follow up: Response: No adverse reaction; No change in condition; RASS: Agitated (+2) sv 11:14 Drug: Ativan 4 mg Route: IVP; Site: left hand; sv 11:28 Follow up: Response: No adverse reaction; No change in condition; RASS: Restless (+1) sv 14:14 Drug: Banana Bag - (NS 0.9% 1000 ml, foLIC Acid 1 mg, Thiamine 100 mg, Multivitamin 1 sv amp) Route: IV; Rate: calculated rate; Site: left hand; 14:20 Drug: morphine 4 mg {Note: rass1.} Route: IVP; Site: left hand; sv 14:35 Follow up: Response: No adverse reaction; Marked relief of symptoms; Pain is decreased; sv RASS: Light sedation (-2) Intake: 15:03 IV: 1000ml; Total: 1000ml. sv Outcome: 11:40 Decision to Hospitalize by Provider. rn 16:30 Admitted to ER Hold. Please see [facility] for further documentation. sv 16:30 Condition: stable 16:30 Instructed on the need for admit. 12/18 09:02 Patient left the ED. sv Signatures: Mirian Phillips RN RN dmCoral Cee RN RN sv Rodriguez Anderson RN RN sg Nieto, Roman, MD MD rn Martinez, Maria Shanda Farrell [facility] Florin Cool RN RN rv Corrections: (The following items were deleted from the chart) 12/17 10:07 10:05 Chief complaint: EMS states: witnessed seizure by pt's mother, c/o right shoulder sv pain. Pt reports that he stopped drinking alcohol 2 days ago "cold turkey" and does not have hx of seizure. sv 11:47 11:40 BP 145 / 111; Pulse 121bpm; Resp 21bpm; Pulse Ox 93% 2 lpm Nasal Cannula; mh5 sv
--- NOTE | 2020-12-17 12:16 | RAD REPORT ---
EXAM DESCRIPTION: RAD - Shoulder 1 View - 12/17/2020 11:50 am CLINICAL HISTORY: POST REDUCTION Dislocation, pain COMPARISON: No comparisons FINDINGS: Previously noted humeral head dislocation has been reduced. A large Hill-Sachs deformity i s noted.
[2020-12-17] MEDS ORDERED: ONDANSETRON 4 MG/2 ML VIAL IV PRN (12:50)
[2020-12-17] MEDS ORDERED: ACETAMINOPHEN 500 MG TAB PO PRN (12:50)
[2020-12-17] MEDS: NA CHLORIDE 0.9% 1,000 ML IV SCH (13:00)
[2020-12-17] MEDS ORDERED: FOLIC ACID 1 MG, MULTIVITAMINS INJ 10 ML, THIAMINE HCL 100 MG in NA CHLORIDE 0.9% 1,000 ML IV ONE (14:00)
[2020-12-17] MEDS ORDERED: MORPHINE 4 MG/ML SYR ONE (14:34)
[2020-12-17 17:03] VITALS: BMI 32.2
[2020-12-17] MEDS ORDERED: INFLUENZA VACCINE (for 3y+) 0.5 ML DOSE IMVAC ONE (18:00)
[2020-12-17] MEDS ORDERED: HALOPERIDOL LACT 5 MG/ML INJ IV PRN (18:14)
[2020-12-17] MEDS ORDERED: TEMAZEPAM 15 MG CAP PO PRN (18:17)
[2020-12-17] MEDS ORDERED: MORPHINE 2 MG/ML SYR ONE ×2 (18:26→22:01)
[2020-12-17] MEDS: MORPHINE 2 MG/ML SYR IV PRN ×2 (18:29→22:21)
[2020-12-17] MEDS: LORazepam 2 MG/ML VIAL IV PRN ×2 (18:29→22:21)
[2020-12-17] MEDS ORDERED: NA CHLORIDE 0.9% 1,000 ML ONE (18:33)
[2020-12-17] MEDS: levETIRAcetam 500 MG in NA CHLORIDE 0.9% 100 ML IV SCH (18:45)
[2020-12-17] MEDS: chlordiazePOXIDE HCl 25 MG CAP PO SCH (20:00)
[2020-12-17] MEDS ORDERED: chlordiazePOXIDE HCl 25 MG CAP ONE (20:32)
[2020-12-18] MEDS ORDERED: chlordiazePOXIDE HCl 25 MG CAP ONE ×2 (01:03→05:22)
[2020-12-18] MEDS: NA CHLORIDE 0.9% 1,000 ML IV SCH ×2 (02:20→15:40)
[2020-12-18] MEDS: MORPHINE 2 MG/ML SYR IV PRN ×5 (03:23→23:53)
[2020-12-18] MEDS: LORazepam 2 MG/ML VIAL IV PRN ×2 (03:23→21:52)
[2020-12-18] MEDS ORDERED: LORazepam 2 MG/ML VIAL ONE (03:35)
[2020-12-18] MEDS ORDERED: MORPHINE 2 MG/ML SYR ONE (03:36)
[2020-12-18 04:33] LABS: Absolute Lymphocytes (CBC) 0.7 K/uL (0.7-4.9); Basophils % 0.3 % (0-1.3); Lymphocytes % 8.7 % (15.3-44.8); MPV 7.8 fL (7.6-11.3); RBC Red Blood Cell Count 3.81 M/uL (4.33-5.43)
[2020-12-18 04:42] LABS: Protime INR 1.07
[2020-12-18 04:54] LABS: ALT/SGPT 176 U/L (12-78); Albumin 3.7 g/dL (3.4-5.0); Alkaline Phosphatase 77 U/L (45-117); BUN Blood Urea Nitrogen 13 mg/dL (7-18); Bicarbonate 24 mmol/L (21-32); Glucose Level 109 mg/dL (74-106); Protein, Total 7.6 g/dL (6.4-8.2); Sodium Level 137 mmol/L (136-145)
[2020-12-18 04:59] LABS: AST/SGOT 226 U/L (15-37); Potassium 3.6 mmol/L (3.5-5.1)
[2020-12-18 05:04] LABS: Blood Morphology Comment NOT SEEN (NOT SEEN); Platelet Estimate DECR; White Blood Cell Scan OK (OK)
[2020-12-18] MEDS ORDERED: chlordiazePOXIDE HCl 5 MG CAP PO ONE (05:21)
[2020-12-18] MEDS: chlordiazePOXIDE HCl 25 MG CAP PO SCH ×4 (05:42→17:27)
[2020-12-18] MEDS ORDERED: NA CHLORIDE 0.9% 1,000 ML ONE ×2 (06:53→07:53)
[2020-12-18] MEDS ORDERED: ACETAMINOPHEN 500 MG TAB ONE (06:53)
[2020-12-18] MEDS: levETIRAcetam 500 MG in NA CHLORIDE 0.9% 100 ML IV SCH ×2 (08:26→21:03)
--- NOTE | 2020-12-18 10:12 | P.HP ---
Certification for Inpatient Patient admitted to: Inpatient With expected LOS: >2 Midnights Patient will require the following post-hospital care: None Practitioner: I am a practitioner with admitting privileges, knowledge of patient current condition, hospital course, and medical plan of care. Services: Services provided to patient in accordance with Admission requirements found in Title 42 Section 412.3 of the Code of Federal Regulations Patient History Date of Service: 12/17/20 Reason for admission: Alcohol withdrawal seizures History of Present Illness: Patient is a 30-year-old gentleman who stop drinking alcohol about 2 days ago. He came to the hospital for further evaluation as he was shaking quite a bit. In the emergency room he was noted to have a generalized tonic-clonic seizure. He was given benzodiazepine and IV anti epileptics. Patient is more awake and following some commands. He will be admitted to the hospital and we will get an EEG. Imaging of the brain is negative. Will get neurology consultation as well. Continue with DT prevention and continue with a banana bag daily. Allergies Sulfa (Sulfonamide Antibiotics) Allergy (Verified 12/17/20 13:21) UNK Home Medications: Escitalopram Oxalate [Lexapro] 10 mg PO BEDTIME 12/17/20 Hydroxyzine HCl [Atarax] 10 mg PO BID PRN 12/17/20 Lisinopril [Zestril] 30 mg PO DAILY 12/17/20 - Past Medical/Surgical History -: HTN -: Hernia - Family History Father Family History: Reviewed- Non-Contributory - Social History Smoking Status: Current every day smoker Alcohol use: Yes Place of Residence: Home Review of Systems 10-point ROS is otherwise unremarkable (Patient lethargic) Physical Examination - Vital Signs Temperature: 98.8 F Blood Pressure: 161/113 Pulse: 108 Respirations: 16 Pulse Ox (%): 97 - Physical Exam General: Alert, In no apparent distress, Other (Patient is lethargic but follows commands) HEENT: Atraumatic, PERRLA, Mucous membr. moist/pink, EOMI, Sclerae nonicteric Neck: Supple, 2+ carotid pulse no bruit, No LAD, Without JVD or thyroid abnormality Respiratory: Clear to auscultation bilaterally, Normal air movement Cardiovascular: Regular rate/rhythm, Normal S1 S2, No murmurs Gastrointestinal: Normal bowel sounds, Soft and benign, Non-distended, No tenderness Musculoskeletal: No clubbing, No swelling, No tenderness Integumentary: No rashes Neurological: Normal gait, Normal speech, Normal strength at 5/5 x4 extr, Sensation intact, Cranial nerves 3-12 intact, Normal affect Lymphatics: No axilla or inguinal lymphadenopathy - Studies Laboratory Data (last 24 hrs) 12/17/20 10:10: Sodium 133 L, Potassium 3.7, BUN 12, Creatinine 1.14, Glucose 192 H, Total Bilirubin 1.1 H, AST 386 H*, ALT 241 H, Alkaline Phosphatase 107, Lipase 747 H 12/17/20 10:10: WBC 9.3, Hgb 14.4, Hct 42.7, Plt Count 132 L Assessment & Plan - Problems (Diagnosis) (1) Delirium tremens Current Visit: Yes Status: Acute (2) Alcohol withdrawal seizure Current Visit: Yes Status: Acute - Plan Plan: 1. Continue with Librium t.i.d. 2. Ativan as needed 3. Keppra 4. EEG 5. Neurology consultation 6. Monitor electrolytes 7. Continue banana bag 8. GI and DVT prophylaxis Discharge Plan: Home Plan to discharge in: Greater than 2 days - Advance Directives Does patient have a Living Will: No Does patient have a Durable POA for Healthcare: No - Code Status/Comfort Care Code Status Assessed: Yes Code Status: Full Code Critical Care: No Time Spent Managing PTS Care (In Minutes): 45
[2020-12-18] MEDS ORDERED: METOPROLOL TARTRATE 5 MG/5 ML INJ IV STA (12:11)
[2020-12-18] MEDS ORDERED: NA CHLORIDE 0.9% 500 ML IV ONE (13:13)
[2020-12-18] MEDS ORDERED: METOPROLOL TAR 50 MG TAB PO ONE (13:14)
[2020-12-18] MEDS ORDERED: lisinopriL 20 MG TAB PO ONE (13:15)
[2020-12-18] MEDS ORDERED: FOLIC ACID 1 MG, MULTIVITAMINS INJ 10 ML, THIAMINE HCL 100 MG in NA CHLORIDE 0.9% 1,000 ML IV SCH (14:30)
--- NOTE | 2020-12-18 15:41 | P.PN ---
Subjective Date of Service: 12/18/20 Patient still a little agitated and at times has some tremors of the upper extremity. His blood pressure is significantly elevated as is his heart rate. Continued trying to get control and prevent his DTs from worsening. Physical Examination - Vital Signs Temperature: 98.5 F Blood Pressure: 141/93 Pulse: 113 Respirations: 17 Pulse Ox (%): 95 - Physical Exam General: Alert HEENT: Atraumatic, Normocephalic Respiratory: Clear to auscultation bilaterally, Normal air movement Cardiovascular: Regular rate/rhythm, Normal S1 S2 Gastrointestinal: Normal bowel sounds, Soft and benign, Non-distended Musculoskeletal: No clubbing, No swelling Neurological: Normal gait, Normal speech, Normal strength at 5/5 x4 extr, Normal tone, Cranial nerves 3-12 intact Assessment & Plan - Problems (Diagnosis) (1) Delirium tremens Status: Acute (2) Alcohol withdrawal seizure Status: Acute - Plan Plan: Continue with plan of care as mentioned below: 1. Continue with Librium t.i.d. 2. Ativan as needed 3. Keppra twice daily 4. EEG pending 5. Neurology consultation pending 6. Monitor electrolytes 7. Continue banana bag 8. GI and DVT prophylaxis Discharge Plan: Home Plan to discharge in: Greater than 2 days - Advance Directives Does patient have a Living Will: No Does patient have a Durable POA for Healthcare: No - Code Status/Comfort Care Code Status: Full Code Critical Care: No Time Spent Managing PTS Care (In Minutes): 35
[2020-12-18] MEDS ORDERED: cloNIDine HCL 0.1 MG TAB PO ONE (17:04)
[2020-12-18] MEDS: lisinopriL 20 MG TAB PO SCH (21:01)
[2020-12-18] MEDS: cloNIDine HCL 0.1 MG TAB PO SCH (21:02)
[2020-12-18] MEDS: METOPROLOL TAR 50 MG TAB PO SCH (21:02)
[2020-12-19] MEDS: chlordiazePOXIDE HCl 25 MG CAP PO SCH ×3 (00:05→12:38)
[2020-12-19] MEDS: LORazepam 2 MG/ML VIAL IV PRN ×2 (02:54→07:22)
[2020-12-19] MEDS: MORPHINE 2 MG/ML SYR IV PRN ×3 (04:40→12:38)
[2020-12-19] MEDS: NA CHLORIDE 0.9% 1,000 ML IV SCH (05:00)
[2020-12-19] MEDS: cloNIDine HCL 0.1 MG TAB PO SCH ×3 (08:37→13:15)
[2020-12-19] MEDS: lisinopriL 20 MG TAB PO SCH (08:37)
[2020-12-19] MEDS: METOPROLOL TAR 50 MG TAB PO SCH (08:37)
[2020-12-19] MEDS: levETIRAcetam 500 MG in NA CHLORIDE 0.9% 100 ML IV SCH (08:38)
[2020-12-19 11:03] LABS: Basophils % 0.4 % (0-1.3); Hematocrit 35.3 % (39.6-49.0); Lymphocytes % 12.2 % (15.3-44.8); MPV 8.4 fL (7.6-11.3); RBC Red Blood Cell Count 3.67 M/uL (4.33-5.43)
[2020-12-19 11:34] LABS: ALT/SGPT 178 U/L (12-78); AST/SGOT 237 U/L (15-37); Albumin 3.7 g/dL (3.4-5.0); Alkaline Phosphatase 88 U/L (45-117); BUN Blood Urea Nitrogen 10 mg/dL (7-18); Bicarbonate 26 mmol/L (21-32); Glucose Level 114 mg/dL (74-106); Phosphorus 3.2 mg/dL (2.5-4.9); Potassium 3.8 mmol/L (3.5-5.1); Protein, Total 7.5 g/dL (6.4-8.2); Sodium Level 137 mmol/L (136-145)
[2020-12-19 13:25] VITALS: O2SAT 98
--- NOTE | 2020-12-25 09:03 | EEG ---
CHART: [id number] TEST ID#: [id number] DATE OF STUDY: 12/18/2020 THE EEG WAS RECORDED PORTABLE IN THE PATIENT'S ROOM ON A 17 CHANNEL MACHINE. ELECTRODES WERE APPLIED IN THE USUAL MANNER USING THE INTERNATIONAL 10-20 SYSTEM. THE WAKING BACKGROUND RHYTHM IN THIS RECORD CONSISTS OF WELL DEVELOPED AND WELL ORGANIZED WAVES OF 10 HZ., MAXIMAL IN THE POSTERIOR HEAD REGIONS WHICH ATTENUATE NORMALLY WITH EYE OPENING. LOW-VOLTAGE 18-22 HZ ACTIVITY IS EXPRESSED IN THE FRONTAL REGIONS. THERE ARE NO FOCAL OR LATERALIZING FEATURES. NO EPILEPTIFORM ACTIVITY APPEARS. SLEEP OCCURRED NATURALLY. IN ADDITION NORMAL SLEEP PATTERNS ARE PRESENT. HYPERVENTILATION WAS NOT PERFORMED. PHOTIC STIMULATION PRODUCED POOR DRIVING BILATERALLY. IMPRESSION: NORMAL EEG FOR THE AGE OF THE PATIENT IN [place], DROWSINESS AND SLEEP.
[2020-12-25 23:47] VITALS: BP 141/93; TEMP 98.5
--- NOTE | 2020-12-26 00:06 | P.DS ---
Discharge Date: 12/19/20 Disposition: ROUTINE DISCHARGE Discharge Condition: GOOD Reason for Admission: Alcohol withdrawal seizures Consultations: Neurology - Problems (1) Delirium tremens Status: Acute (2) Alcohol withdrawal seizure Status: Acute Brief History of Present Illness: Patient is a 30-year-old gentleman who stop drinking alcohol about 2 days ago. He came to the hospital for further evaluation as he was shaking quite a bit. In the emergency room he was noted to have a generalized tonic-clonic seizure. He was given benzodiazepine and IV anti epileptics. Patient is more awake and following some commands. He will be admitted to the hospital and we will get an EEG. Imaging of the brain is negative. Will get neurology consultation as well. Continue with DT prevention and continue with a banana bag daily. Hospital Course: Patient has done well during hospital stay. His tremors are improved. He is not as diaphoretic. His mother is at bedside and states he is feeling much better. Patient has been given information for assistance with alcohol abuse. Patient will be discharged on tapering dose of Librium. Vital Signs/Physical Exam: Temp Pulse Resp BP Pulse Ox 98.5 F 113 H 17 141/93 H 95 12/25/20 23:47 12/25/20 23:47 12/25/20 23:47 12/25/20 23:47 12/25/20 23:47 General: Alert, In no apparent distress, Oriented x3 Laboratory Data at Discharge: WBC 8.40 K/uL (4.3-10.9) 12/19/20 10:55 Hgb 11.7 g/dL (13.6-17.9) L 12/19/20 10:55 Hct 35.3 % (39.6-49.0) L 12/19/20 10:55 Plt Count 93 K/uL (152-406) L 12/19/20 10:55 PT 12.6 SECONDS (9.5-12.5) H 12/18/20 04:10 INR 1.07 12/18/20 04:10 APTT 25.6 SECONDS (24.3-36.9) 12/18/20 04:10 Sodium 137 mmol/L (136-145) 12/19/20 10:55 Potassium 3.8 mmol/L (3.5-5.1) 12/19/20 10:55 BUN 10 mg/dL (7-18) 12/19/20 10:55 Creatinine 0.69 mg/dL (0.55-1.3) 12/19/20 10:55 Glucose 114 mg/dL (74-106) H 12/19/20 10:55 Phosphorus 3.2 mg/dL (2.5-4.9) 12/19/20 10:55 Magnesium 2.0 mg/dL (1.8-2.4) 12/19/20 10:55 Total Bilirubin 1.0 mg/dL (0.2-1.0) 12/19/20 10:55 AST 237 U/L (15-37) H 12/19/20 10:55 ALT 178 U/L (12-78) H 12/19/20 10:55 Alkaline Phosphatase 88 U/L (45-117) 12/19/20 10:55 Lipase 747 U/L (73-393) H 12/17/20 10:10 Home Medications: Escitalopram Oxalate [Lexapro] 10 mg PO BEDTIME 12/17/20 Hydroxyzine HCl [Atarax] 10 mg PO BID PRN 12/17/20 Chlordiazepoxide HCl [Librium] 10 mg PO TID #70 capsule 12/19/20 Codeine/APAP [Tylenol W/Codeine #3 tab] 1 tab PO Q6HP PRN #30 tab 12/19/20 Metoprolol Tartrate [Lopressor*] 50 mg PO BID #60 tab 12/19/20 Temazepam [Restoril*] 15 mg PO BEDTIME PRN PRN #10 cap 12/19/20 cloNIDine HCL [Catapres*] 0.1 mg PO BID #90 tab 12/19/20 lisinopriL [Prinivil*] 20 mg PO BID #60 tab 12/19/20 New Medications: cloNIDine HCL [Catapres*] 0.1 mg PO BID #90 tab Chlordiazepoxide HCl [Librium] 10 mg PO TID #70 capsule Metoprolol Tartrate [Lopressor*] 50 mg PO BID #60 tab lisinopriL [Prinivil*] 20 mg PO BID #60 tab Temazepam [Restoril*] 15 mg PO BEDTIME PRN PRN #10 cap PRN Reason: Insomnia Codeine/APAP [Tylenol W/Codeine #3 tab] 1 tab PO Q6HP PRN #30 tab PRN Reason: Pain Physician Discharge Instructions: -OK TO DC IV AND DC HOME -FOLLOW-UP WITH PCP IN 1-2 WEEKS -FOLLOW-UP WITH CARDIOLOGY IN 1-2 WEEKS -PLEASE MAKE SURE ALL DIAGNOSTIC STUDIES ARE AVAILABLE AND HAVE BEEN REVIEWED WITH PATIENT PRIOR TO DISCHARGE -RETURN TO THE ER IF symptoms worsens -CALL DR. JACKSON AT [phone] IF ANY QUESTIONS REGARDING HOSPITAL STAY -PLEASE CALL THE FLOOR AT [phone] IF ANY MEDICATION OR NURSING QUESTIONS Diet: Regular Activity: Fall precautions Followup: NONE,NONE [Primary Care Provider] - Time spent managing pt's care (in minutes): 35
== END 2020-12-19 17:06 | disposition home or self-care (01) | DRG 897 ==
LOC: ER 10:04 → ERHOLD 12:51 → 2ND 12-18 08:21
PROVIDERS: ADMIT Hospitalist; ATTEND Hospitalist
DX: F10.231 Alcohol dependence with withdrawal delirium (principal); G40.409 Other generalized epilepsy and epileptic syndromes, not intractable, without status epilepticus; I10 Essential (primary) hypertension; F17.200 Nicotine dependence, unspecified, uncomplicated; Z88.1 Allergy status to other antibiotic agents; Z79.899 Other long term (current) drug therapy; Z20.822 Contact with and (suspected) exposure to COVID-19
CPT/HCPCS: 36415; 73020; 80048; 80053; 80076; 80320; 83690; 83735; 84100; 85025; 85610; 85730; 93005; 95819; 99285; J1953; J2270; J2405; J2704; J3411; J7030; J7040; J7120; U0003

== ENCOUNTER 2021-07-23 18:47 | Emergency (ER) | payer BC, OTHER ==
--- OUTSIDE RECORDS SUMMARY | 2021-07-23 18:51 | XMS REPORT | Continuity of Care Document ---
:1990 Author Organization [facility] t Address [address] [place] [address] Care Team Providers Name Role Phone Shital Attending Clinician Shital Admitting Clinician Problems Condition Condition Condition Status Onset Resolution Last Treating Co mments Source Name Details Category Date Date Treatment Clinician Date ACUTE Diagnosis Active 2020-08-27 Mem oria ALCOHOLIC 08-22 09:42:00 l PANCREATIT ACUTE 00:00: Sharita nn IS ALCOHOLIC 00 [facility] Active 2020-08-22 Memoria IS 08-22 22:44:00 l 00:00: [place] PANCREATIT 00 IS Active 0 [facility] Acute Problem 2020-08-28 Memor ia pancreatit 21:20:21 l is with Acute Per uninfected pancreatit necrosis, is with unspecifie uninfected d necrosis, unspecifie d 08/28/2020 [facility] ALCOHOL Diagnosis Active 2020-08-27 Me moria INDUCED 09:42:00 l ACUTE ALCOHOL Per PANCREATIT INDUCED IS WITHO ACUTE PANCREATIT IS WITHO Active [facility] ACUTE Diagnosis Active 2020-08-22 Mem oria PANCREATIT 22:44:00 l IS WITH ACUTE Per UNINFECTED PANCREATIT NECRO IS WITH UNINFECTED NECRO Active [facility] Allergies, Adverse Reactions, Alerts Allergy Allergy Status [...] tab, PO, l Tablet 16:30: Daily, # [place] 00 30 tab, 0 Refill(s), [id number], 190.5, cm, 08/22/20 23:01:00 CDT, Height, 122.045, kg, 08/22/20 23:01:00 CDT, Weight omega-3 2019-11 Yes 1 gm = 1 Memori a polyunsatur 0-04 cap, PO, l ated fatty 16:30: BID, # 60 He rmann acids 1000 00 cap, 0 mg oral Refill(s), capsule Pharmacy: [facility] #[id number], 190.5, cm, 08/22/20 23:01:00 CDT, Height, 122.045, kg, 08/22/20 23:01:00 CDT, Weight ciprofloxac 2019-11 Yes 500 mg = 1 Memoria in 500 mg 0-04 tab, PO, l oral tablet 16:26: Q12H, for H ermann 00 UTI, X 3 day, # 6 tab, 0 Refill(s), [id number], 190.5, cm, 08/22/20 23:01:00 CDT, Height, 122.045, kg, 08/22/20 23:01:00 CDT, Weight Metronidazo 2019-11 Yes 500 mg = 1 Memoria le 500 MG 0-04 tab, PO, l Oral Tablet 16:26: Q8H, X 3 He rmann [Flagyl] 00 day, # 9 tab, 0 Refill(s), [id number], 190.5, cm, 08/22/20 23:01:00 CDT, Height, 122.045, kg, 08/22/20 23:01:00 CDT, Weight thiamine 2019-11 Yes 100 mg = 1 Mem oria 100 mg oral 0-04 tab, PO, l tablet 16:26: Daily, X [place] 00 30 day, # 30 tab, 0 Refill(s), [id number], 190.5, cm, 08/22/20 23:01:00 CDT, Height, 122.045, kg, 08/22/20 23:01:00 CDT, Weight Folic Acid 2019-11 Yes 1 mg = 1 Mem oria 1 MG Oral 0-04 tab, PO, l Tablet 16:26: Daily, # Per 00 30 tab, 0 Refill(s), Pharmacy: [facility] #[id number], 190.5, cm, 08/22/20 23:01:00 CDT, Height, 122.045, kg, 08/22/20 23:01:00 CDT, Weight Chlordiazep 2019-11 Yes 10 mg = 1 M emoria oxide 0-04 cap, PO, l Hydrochlori 16:26: QID, X 3 He rmann de 10 MG 00 day, # 12 Oral cap, 0 Capsule Refill(s), Pharmacy: [facility] #[id number], 190.5, cm, 08/22/20 23:01:00 CDT, Height, 122.045, kg, 08/22/20 23:01:00 CDT, Weight Lorazepam 1 2019-11 Yes 1 mg = 1 Me moria MG Oral 0-04 tab, PO, l Tablet 16:26: TID, PRN [place] [Ativan] 00 as needed for anxiety, X 7 day, # 24 tab, 0 Refill(s), Pharmacy: [facility] #[id number], 190.5, cm, 08/22/20 23:01:00 CDT, Height, 122.045, kg, 08/22/20 23:01:00 CDT, Weight Famotidine 2019-11 Yes 20 mg = 1 Me moria 20 MG Oral 0-04 tab, PO, l Tablet 16:26: Q12H, # 14 Sharita nn [Pepcid] 00 tab, 0 Refill(s), Pharmacy: [facility] #[id number], 190.5, cm, 08/22/20 23:01:00 CDT, Height, 122.045, kg, 08/22/20 23:01:00 CDT, Weight labetalol 2019-11 Yes 100 mg = 1 Me moria 100 mg oral 0-04 tab, PO, l tablet 16:26: TID, # 90 Bakari n 00 tab, 0 Refill(s), Pharmacy: [facility] #[id number], 190.5, cm, 08/22/20 23:01:00 CDT, Height, 122.045, kg, 08/22/20 23:01:00 CDT, Weight Potassium 2019-11 Yes Notes: Memori a Chloride 0-04 (Same as: l 1.33 MEQ/ML 16:06: Potassium H ermann Oral 00 Chloride) Solution Tramadol 2019-11 No Notes: Not Mem oria 0-03 to exceed l 22:12: 400mg/day. Per 00 (Same As: Ultram) Lisinopril 2019-11 No Notes: Memor ia 0-03 (Same as: l 17:00: Prinivil, [place] 00 Zestril) Potassium 2019-11 No Notes: Memori a Chloride 0-03 (Same as: l 16:35: K-Dur 20) [place] 00 "Do Not Crush" Give with food and full glass of water For patients unable to swallow tablet, dissolve in one half glass of water. Allow about 2 minutes for the tablets to disintegra te. Stir before giving to prepare slurry and administer . Please exclude Patient s with feeding tube less than 14 Kiswahili (Dobhoff, J-tube etc) and pediatric and patients. potassium 2019-11 No Notes: Memori a phosphate-s 0-03 (Same as: l odium 16:35: Phos-NaK) Per phosphate 00 Each 1.5 250 mg-280 gm pkt has mg-160 mg 250mg oral powder phosphorou for s. Mix reconstitut w/2.5oz ion water and stir. potassium 2019-11 No Notes: Memori a phosphate 0-03 (Same as: l 16:35: K [place] 00 Phosphate. ) Do not infuse phosphorou [...] WASTE: F/P l 16:35: - Sink; E [place] 00 - Municipal Trash Bin Magnesium 2019-11 No Notes: Memori a Oxide 0-03 (Same as: l 16:35: Mag-Ox [place] 00 400) Magnesium oxide 910bo=485v g elemental magnesium Dose=____m g magnesium oxide (___mg elemental magnesium) Calcium 2019-11 No Notes: Memoria Gluconate 0-03 WASTE: F/P l 16:35: - Sink; E [place] 00 - Municipal Trash Bin Potassium 2019-11 [...] Memoria 0-02 (Same as: l 21:03: Haldol) [place] 00 Ciprofloxac 2019-11 No Notes: Do M emoria in 0-02 not l 14:00: refrigerat Per 00 e Flagyl 2019-11 No Notes: Memoria 0-02 (Same as: l 14:00: Flagyl) Per 00 Avoid alcohol. Famotidine 2019-11 No Notes: Memor ia 20 MG Oral 0-02 (Same as: l Tablet 02:00: Pepcid) [place] [Pepcid] 00 168 HR 2019-11 No Notes: Memoria Clonidine 0-02 Patch l 0.92371 02:00: delivers Bakari n MG/HR 00 0.2 mg/24 Transdermal hours; Patch Patch is applied weekly. "Remove old patch before applicatio n of new patch" (Same As: Catapres-T TS-2) Labetalol 2019-11 No Notes: Memori a 0-02 (Same as: l 01:41: Normodyne, [place] 00 Trandate) Push over 2 minutes Give [...] 0-01 Route: IM, l 04:10: Drug form: [place] 00 PDR/INJ, PRN, Dosing Weight 122.045, kg, PRN Blood Glucose Results, Start date: 08/22/20 23:10:00 CDT, Duration: 30 day, Stop date: 09/21/20 23:09:00 CDT, 0 Ondansetron 2019-11 No Notes: Reagan sharonda 0-01 (Same as: l 04:10: Zofran) [place] 00 MEDICATION WASTE Product Size: 4 mg Product Wasted: ___ mg Vital Signs Vital Name Observation Time Observation Value Comments Source Temperature Oral (F) 2020-08-26 13:00:00 98.9 F [facility] [place] Heart Rate 2020-08-26 13:00:00 [facility] [place] Respitory Rate 2020-08-26 13:00:00 Memori al [place] Systolic (mm Hg) 2020-08-26 13:00:00 Reagan rial Per Diastolic (mm Hg) 2020-08-26 13:00:00 Mem orial Per Temperature Oral (F) 2020-08-26 09:00:00 98.4 F [facility] [place] Heart Rate 2020-08-26 09:00:00 [facility] Per Respitory Rate 2020-08-26 09:00:00 Memori al [place] Systolic (mm Hg) 2020-08-26 09:00:00 Reagan rial [place] Diastolic (mm Hg) 2020-08-26 09:00:00 Mem orial Per Systolic (mm Hg) 2020-08-26 07:30:00 Reagan rial Per Diastolic (mm Hg) 2020-08-26 07:30:00 Mem orial [place] Heart Rate 2020-08-26 07:30:00 [facility] [place] Temperature Oral (F) 2020-08-26 05:00:00 100.6 F [facility] Per Respitory Rate 2020-08-26 05:00:00 Memori al Per Height 2020-08-23 04:01:00 190.5 cm [facility] Per Weight 2020-08-23 04:01:00 [facility] [place] BMI Calculated 2020-08-23 04:01:00 Memori al Per Procedures This patient has no known procedures. Encounters Start End Encounter Admission Attending Care Care Encounter Source Date/Time Date/Time Type Type Clinicians Facility Department ID 2020-08-22 Inpatient U [facility] MED [id number] [facility] L 22:35:00 2020-08-23 2020-08-26 Inpatient nullFlavo [facility] [id number] Memoria 03:35:00 18:15:00 r Per 75 l [facility] 2020-08-22 2020-08-26 Outpatient Shitla [facility] [id number] 22:35:00 13:15:00 Jeff 75 2020-08-22 2020-08-26 [facility] [id number] 22:35:00 13:15:00 Jeff 74 Results Test Description Test Time Test Comments Results Result Comments Source CHEM PANEL 2020-08-26 3.1 [facility] Sharita nn [...] nn 09:37:00 CHEM PANEL 2020-08-26 12.1 [facility] Shariat nn 09:37:00 CHEM PANEL 2020-08-26 09:37:00 Test Item Value Reference Range Interpretation Comme nts B/C Ratio (test code = B/C Ratio) 12 1 6-25 [facility] HermannCHEM [id number] 09:37:004.1[facility] HermannCHEM PANEL 2020-08-26 09:37:00 Test Item Value Reference Range Interpretation Comments A/G Ratio (test code = A/G Ratio) 0.6 1 0.7-1.6 [facility] LIEUV4084-11-05 09:37:02426Jweklxpt HermannHEMATOLOGY 2020-08-26 09:37:0074.5[facility] ZbcycgbDVXRLYBFBE2231-15-03 09:37:0012.0[facility] PvdrhlvNGWDEVQTBB3217-25-01 09:37:0011.7[facility] DscclphPOONYWOATW4176-24-05 09:37:001.6[facility] PyuxqpaVPDVQLIKSX8039-49-26 09:37:000.2[facility] [place] UNDIVLSHKP9028-85-82 09:37:009.7[facility] FkiusagIPMNHAKMIA5475-07-70 09:37:001.6 [facility] VlaudbhTMRMEYFAPC8381-27-88 09:37:001.5[facility] HermannHEMATOLOGY 2020-08-26 09:37:000.2[facility] MmhvscyBFMTIOXWCZ7319-84-25 09:37:0013.0[facility] KnsgiiwOIGLQWMAOX5565-37-88 09:37:003.37[facility] UnmzqjeKYGHKPYEOS0963-41-01 09:37:0011.5[facility] OiefiazKREIGQARYA9957-84-87 09:37:0033.6[facility] Per JSWSUHRTRM2767-80-30 09:37:0099.7[facility] NiqscfkEVNBCUHDKT6709-04-35 09:37:00 Test Item Value Reference Range Interpretation Comments MCH (test code = MCH) 34.2 pg 27.0-31.0 [facility] MppbjufBOXBLHXPJA3715-51-14 09:37:0034.3[facility] HermannHEMATOLOGY 2020-08-26 09:37:0013.2[facility] RkslnrlKJHYFECDYR0552-92-23 09:37:09231Xkykxkmn KjnoewcQAYQSPYRPX2530-82-58 09:37:007.2[facility] HermannCHEM FISMY4879-72-53 09:37:63417Picnnini HermannCHEM GDCFK7547-15-61 09:37:008[facility] HermannCHEM PRDGW6767-35-65 09:37:000.65[facility] HermannCHEM YXMEP8804-77-43 09:37:09772 [facility] HermannCHEM TDEZC8880-33-10 09:35:008[facility] HermannCHEM PANEL 2020-08-25 09:35:000.64[facility] HermannCHEM OGREM2956-28-42 09:35:0097[facility] HermannCHEM QHYZR1260-86-65 09:35:11686Vtfaljsg HermannCHEM PTYEH2696-75-38 09:35:003.4[facility] HermannCHEM UUCZC7583-03-39 09:35:75187Elnvoozr HermannCHEM ZCVQT8607-31-32 09:35:0025[facility] HermannCHEM VCZLJ1033-20-25 09:35:007.9 [facility] HermannCHEM YHJYG0812-57-90 09:35:006.7[facility] HermannCHEM PANEL 2020-08-25 09:35:002.5[facility] HermannCHEM VYFKD4717-14-84 09:35:0061[facility] HermannCHEM UYEXT3331-14-70 09:35:0059[facility] HermannCHEM VCRDO0272-11-35 09:35:0081[facility] HermannCHEM XWQUP2609-32-83 09:35:001.0[facility] HermannCHEM GVHWR6393-77-99 09:35:0012.4[facility] HermannCHEM WGRGS5819-45-66 09:35:00 Test Item Value Reference Range Interpretation Comments B/C Ratio (test code = B/C Ratio) 12 1 6-25 [facility] HermannCHEM JVNFI1461-00-82 09:35:004.2[facility] HermannCHEM PANEL 2020-08-25 09:35:00 Test Item Value Reference Range Interpretation Comments A/G Ratio (test code = A/G Ratio) 0.6 1 0.7-1.6 [facility] HermannCHEM VZTKW3631-88-94 09:35:03600Amnzaour HermannHEMATOLOGY 2020-08-25 09:35:0013.6[facility] IqbskpaMBDFVKJCHL7563-21-00 09:35:003.46[facility] PrrhunpAMPJHTDSOS5115-17-80 09:35:0012.1[facility] NqvkkaxYXQKMZGMWO9044-37-36 09:35:0034.4[facility] LordrlfWVTOYQASUD3903-46-74 09:35:0099.3[facility] [place] BHMTNAWBJR2618-01-09 09:35:00 Test Item Value Reference Range Interpretation Comments MCH (test code = MCH) 34.9 pg 27.0-31.0 [facility] CtkhpixXEFWYYMWRS0635-33-14 09:35:0035.1[facility] HermannHEMATOLOGY 2020-08-25 09:35:0012.9[facility] WnwqjdrNWHERTQRUU0172-02-90 09:35:09304Wzixpbah McjibvtYXPFJKWBEJ5840-78-19 09:35:007.4[facility] WdjoqmgNKDARWJLHG4091-74-34 09:35:0081.3[facility] KymfqdlSLSVMWZXBQ4679-54-47 09:35:008.6[facility] Per EGLLGMHCZM2608-69-51 09:35:009.7[facility] LxqqeqfZUWWVYEOKC1986-20-37 09:35:000.2 [facility] QsrfbhtYBXRKMPLFX1021-41-32 09:35:000.2[facility] HermannHEMATOLOGY 2020-08-25 09:35:0011.1[facility] LjrtxeoIIUXZHVMXO6238-75-30 09:35:001.2[facility] NtsslspTVYDUPJGIH0415-43-40 09:35:001.3[facility] HermannCHEM IECQA7982-69-10 09:44:76359Nnfhcdcw HermannCHEM BOHOD1276-76-59 09:44:0011[facility] HermannCHEM SILQR6509-10-88 09:44:000.80[facility] HermannCHEM HEJDE4443-21-23 09:44:35531 [facility] HermannCHEM UIYFF8905-79-19 09:44:003.4[facility] HermannCHEM PANEL 2020-08-24 09:44:88722Yiaqubga HermannCHEM LMGDM1034-05-06 09:44:0024[facility] HermannCHEM UGRTT4024-99-54 09:44:008.0[facility] HermannCHEM QHWDG1469-03-25 09:44:006.5[facility] HermannCHEM HBVNV0402-63-93 09:44:002.7[facility] HermannCHEM DNIBB5455-78-05 09:44:0076[facility] HermannCHEM GIEHT2626-04-32 09:44:0068 [facility] HermannCHEM KJAIJ9705-72-44 09:44:0068[facility] HermannCHEM PANEL 2020-08-24 09:44:001.2[facility] HermannCHEM OMBGI4488-55-37 09:44:0013.4[facility] HermannCHEM ZWKNE4710-72-80 09:44:00 Test Item Value Reference Range Interpretation Comments B/C Ratio (test code = B/C Ratio) 14 1 6-25 [facility] HermannCHEM EHBGA5468-38-70 09:44:003.8[facility] HermannCHEM PANEL 2020-08-24 09:44:00 Test Item Value Reference Range Interpretation Comments A/G Ratio (test code = A/G Ratio) 0.7 1 0.7-1.6 [facility] HermannCHEM CJNCZ7661-78-20 09:44:04512Pdelvjsu HermannHEMATOLOGY 2020-08-24 09:44:0087.2[facility] UuxuxapCPEDIRLIVU2247-07-94 09:44:004.9[facility] PqzlayeCGZNVDFQUN7119-11-69 09:44:007.7[facility] PkfrnorPEXDSMBDNY5339-12-15 09:44:000.2[facility] IzjzltpGKIAAVYGIH3059-69-36 09:44:0016.2[facility] Per JHQRXVLNBK6631-08-01 09:44:000.9[facility] JdqncrrZRBYVDJDVB7230-50-88 09:44:001.4 [facility] IcfdgatTSHGGGBXEI8616-19-62 09:44:0018.6[facility] HermannHEMATOLOGY 2020-08-24 09:44:003.91[facility] LoxicppFLUEWOKSVQ1041-35-31 09:44:0013.5[facility] GtfstikIMBGYAZINL5354-46-50 09:44:0038.7[facility] KhelticEPQLCGYMGO2665-05-17 09:44:0099.0[facility] PtddfxyJRBCYNCWZW0021-15-07 09:44:00 Test Item Value Reference Range Interpretation Comments MCH (test code = MCH) 34.5 pg 27.0-31.0 [facility] CiszwooEBZQMLQOHF1040-91-71 09:44:0034.9[facility] HermannHEMATOLOGY 2020-08-24 09:44:0013.5[facility] OjsfdicUXRTNAKPVY9553-11-43 09:44:28913Oejuhxsh QdqekqfGJNEQWCVAE6274-76-20 09:44:007.5[facility] JdilvuaVYELEW0512-03-67 09:44:00 320[facility] HermannCHEM AWAEF5302-71-80 02:13:001.5[facility] HermannIMMUNOLOGY 2020-08-23 10:58:00Not Detected (08/23/20 5:58 AM)[facility] HermannCHEM PANEL 2020-08-23 04:50:873983Sfzhaajm XyvydtvXUWUIVPLNA4295-20-72 04:50:00Normal (08/22/20 11:50 PM)[facility] DasajaoPHGPLXFTWZ6597-61-32 04:50:00Normal (08/22/20 11:50 PM)[facility] CnddzgbIPGTPZ6046-74-15 04:50:04165Ottvwygn HermannLIPIDS 2020-08-23 04:50:98068Gzevynbx MderyonEHNJVX9365-15-90 04:50:0028[facility] XnyzqkpBIMVGZ9507-16-84 04:50:00 Test Item Value Reference Range Interpretation Comments CHD Risk (test code = CHD Risk) 6.21 1 4.00-7.30 [facility] JsguxpaCKDFSP3285-50-00 04:50:00See Note 5*NA*(08/22/20 11:50 PM) [facility] Per
[2021-07-23 20:30] LABS: Absolute Lymphocytes (CBC) 2.2 K/uL (0.7-4.9); Basophils % 0.5 % (0-1.3); Hematocrit 46.2 % (39.6-49.0); Lymphocytes % 15.2 % (15.3-44.8); MPV 6.1 fL (7.6-11.3); RBC Red Blood Cell Count 5.24 M/uL (4.33-5.43)
[2021-07-23 20:39] LABS: Protime INR 0.96
[2021-07-23] MEDS ORDERED: NA CHLORIDE 0.9% 1,000 ML ONE (20:39)
[2021-07-23 21:01] LABS: ALT/SGPT 61 U/L (12-78); AST/SGOT 41 U/L (15-37); Albumin 4.4 g/dL (3.4-5.0); Alkaline Phosphatase 118 U/L (45-117); BUN Blood Urea Nitrogen 18 mg/dL (7-18); Bicarbonate 20 mmol/L (21-32); Bilirubin Direct 0.2 mg/dL (0-0.2); Bilirubin Total 0.7 mg/dL (0.2-1.0); Glucose Level 106 mg/dL (74-106); Potassium 4.1 mmol/L (3.5-5.1); Protein, Total 9.3 g/dL (6.4-8.2); Sodium Level 138 mmol/L (136-145)
[2021-07-23] MEDS ORDERED: PNEUMOCOCCAL VACCINE 0.5 ML IMVAC ONE (21:02)
[2021-07-23 21:49] LABS: Urine Blood Trace-intact (Negative); Urine Glucose Negative (Negative); Urine Protein 2+ (Negative); Urine Specific Gravity >=1.030 (1.005-1.030)
[2021-07-23 22:16] LABS: Lipase 655 U/L (73-393)
[2021-07-23 22:20] LABS: Barbiturates NEGATIVE (NEGATIVE); Benzodiazepines NEGATIVE (NEGATIVE); Cocaine NEGATIVE (NEGATIVE); METHAMPHETAM NEGATIVE (NEGATIVE); Methadone NEGATIVE (NEGATIVE); Opiates NEGATIVE (NEGATIVE); Phencyclidine NEGATIVE (NEGATIVE); THC Cannibis POSITIVE (NEGATIVE)
[2021-07-23] MEDS ORDERED: DIAZEPAM 10 MG/2 ML INJ SYRINGE ONE (22:50)
[2021-07-23] MEDS ORDERED: MORPHINE 4 MG/ML SYR ONE (22:58)
[2021-07-23] MEDS ORDERED: Ringers Lactate 1,000 ML IV ONE (23:30)
--- NOTE | 2021-07-24 00:34 | ER ---
Nurse's Notes [facility] Name: Mc Barrios Age: 31 yrs Sex: Male : 1990 Arrival Date: 07/23/2021 Time: 18:56 Bed Treatment Private MD: Diagnosis: Acute Pancreatitis;ETOH Abuse Presentation: 07/23 20:01 Chief complaint: Patient states: stopped drinking today. last drink was at noon, was iw worried because last time he went into withdrawals he had a seizure, that was 7 months ago, is also having RUQ pain and mid abd pain , + nausea , normally drinks only on weekends and then he had a bad week and has been drinking more. Coronavirus screen: At this time, the client does not indicate any symptoms associated with coronavirus-19. Ebola Screen: Patient negative for fever greater than or equal to 101.5 degrees Fahrenheit, and additional compatible Ebola Virus Disease symptoms Patient denies exposure to infectious person. Patient denies travel to an Ebola-affected area in the 21 days before illness onset. No symptoms or risks identified at this time. Initial Sepsis Screen: Does the patient meet any 2 criteria? No. Patient's initial sepsis screen is negative. Does the patient have a suspected source of infection? No. Patient's initial sepsis screen is negative. Risk Assessment: Do you want to hurt yourself or someone else? Patient reports no desire to harm self or others. Onset of symptoms was July 23, 2021. 20:01 Method Of Arrival: Ambulatory iw 20:01 Acuity: ROSCOE 3 iw Historical: - Allergies: 20:05 Sulfa (Sulfonamide Antibiotics); iw - Home Meds: 20:05 hydroxyzine HCl 10 mg oral tab [Active]; Lexapro 10 mg Oral tab 1 tab nightly [Active]; iw lisinopril 30 mg Oral tab once daily [Active]; - PMHx: 20:05 Hypertension; iw - Immunization history:: Client reports receiving the Rolando \\T\\ Rolando single-dose vaccine. - Social history:: Smoking status: Reported history of juuling and/or vaping. Patient uses alcohol. Screenin:00 Abuse screen: Denies threats or abuse. Nutritional screening: No deficits noted. vg1 Tuberculosis screening: No symptoms or risk factors identified. Fall Risk No fall in past 12 months (0 pts). No secondary diagnosis (0 pts). IV access (20 points). Ambulatory Aid- None/Bed Rest/Nurse Assist (0 pts). Gait- Normal/Bed Rest/Wheelchair (0 pts) Mental Status- Oriented to own ability (0 pts). Total Chung Fall Scale indicates No Risk (0-24 pts). Assessment: 22:50 General: Appears in no apparent distress. comfortable, Behavior is calm, cooperative. vg1 Pain: Complains of pain in right upper quadrant Pain currently is 6 out of 10 on a pain scale. Noted to be guarding. Neuro: Level of Consciousness is awake, alert, obeys commands, Oriented to person, place, time, situation. Cardiovascular: Patient's skin is warm and dry. Respiratory: Airway is patent Respiratory effort is even, unlabored. GI: Reports upper abdominal pain, nausea. : No signs and/or symptoms were reported regarding the genitourinary system. EENT: No signs and/or symptoms were reported regarding the EENT system. Derm: Skin is intact, Skin is pink, warm \\T\\ dry. Musculoskeletal: Circulation, motion, and sensation intact. 23:07 Reassessment: Received VO from Galdino BURNETT to administer LR 1L at bolus rate IVP x1. vg1 07/24 00:02 Reassessment: Pt states "feels like my body is having tremors and my right side feels vg1 like someone is stabbing me" Pt rates pain 7/10. Provider notified. Vital Signs: 07/23 20:00 BP 116 / 96; Pulse 130; Resp 18; Temp 97.0; Pulse Ox 99% on R/A; Weight 117.93 kg; iw Height 6 ft. 3 in. (190.50 cm); 21:02 Pulse 103; Pulse Ox 99% on R/A; iw 07/24 00:50 BP 117 / 64; Pulse 91; Resp 18; Pulse Ox 100% on R/A; Pain 1/10; wg 07/23 20:00 Body Mass Index 32.50 (117.93 kg, 190.50 cm) iw ED Course: 07/23 18:56 Patient arrived in ED. ds1 20:05 Triage completed. iw 20:05 Arm band placed on. iw 20:21 Inserted saline lock: 20 gauge in right antecubital area, using aseptic technique. iw 22:05 Mickail, Ruy, PA is PHCP. [facility] 22:05 Arnold Nugent MD is Attending Physician. jm 22:44 Emily Carter, RN is Primary Nurse. vg1 22:50 US Abdomen Limited In Process Unspecified. EDMS 22:53 CT Abd/Pelvis - IV Contrast Only In Process Unspecified. EDMS 23:00 Patient has correct armband on for positive identification. Bed in low position. Call 1 light in reach. 23:00 No provider procedures requiring assistance completed. vg1 07/24 00:32 Hector Nayak MD is Referral Physician. [facility] 00:35 Truman Robbins MD is Referral Physician. [facility] 00:58 IV discontinued, intact, bleeding controlled, No redness/swelling at site. Pressure wg dressing applied. Administered Medications: 07/23 20:20 Drug: NS 0.9% 1000 ml Route: IV; Rate: 1000 ml; Site: right antecubital; 07/24 00:59 Follow up: IV Status: Completed infusion; IV Intake: 1000ml wg 07/23 22:52 Drug: morphine 4 mg Route: IVP; Site: right antecubital; vg1 23:12 Follow up: Response: No adverse reaction; Marked relief of symptoms vg1 22:55 Drug: Valium (diazepam) 5 mg Route: IVP; Site: right antecubital; vg1 23:12 Follow up: Response: No adverse reaction; Marked relief of symptoms vg1 23:13 Drug: Lactated Ringers Solution 1000 ml Route: IV; Rate: 1 bolus; Site: right vg1 antecubital; 07/24 00:42 Drug: morphine 4 mg Route: IVP; Site: right antecubital; wg 00:59 Follow up: Response: No adverse reaction; Pain is decreased wg 00:43 Drug: Valium (diazepam) 5 mg Route: IVP; Rate: bolus; Infused Over: 2 mins; Site: right wg antecubital; 00:58 Follow up: Response: No adverse reaction; Anxiety decreased wg Intake: 00:59 IV: 1000ml; Total: 1000ml. wg Outcome: 00:33 Discharge ordered by . jm 00:56 Patient left the ED. wg 00:57 Discharged to home ambulatory. wg 00:57 Condition: stable 00:57 Discharge instructions given to patient, Instructed on discharge instructions, no drinking with medication, medication usage, Demonstrated understanding of instructions, follow-up care, medications, Prescriptions given X 3. Signatures: Dispatcher [employer] Ruy Alvarado PA PA jmm Sanford, Demi ds1 Breanna Ibarra, MARTÍN RESENDIZ iw Emily Carter RN RN vg1 Celso Wren RN wg
--- NOTE | 2021-07-24 00:34 | EDPHYS ---
Physician Documentation [facility] Name: Mc Barrios Age: 31 yrs Sex: Male : 1990 Arrival Date: 07/23/2021 Time: 18:56 Bed Treatment Private MD: ED Physician Arnold Nugent Historical: - Allergies: 07/23 20:05 Sulfa (Sulfonamide Antibiotics); iw - Home Meds: 20:05 hydroxyzine HCl 10 mg oral tab [Active]; Lexapro 10 mg Oral tab 1 tab nightly [Active]; iw lisinopril 30 mg Oral tab once daily [Active]; - PMHx: 20:05 Hypertension; iw - Immunization history:: Client reports receiving the Rolando \T\ Rolando single-dose vaccine. - Social history:: Smoking status: Reported history of juuling and/or vaping. Patient uses alcohol. Vital Signs: 20:00 BP 116 / 96; Pulse 130; Resp 18; Temp 97.0; Pulse Ox 99% on R/A; Weight 117.93 kg; iw Height 6 ft. 3 in. (190.50 cm); 21:02 Pulse 103; Pulse Ox 99% on R/A; iw 07/24 00:50 BP 117 / 64; Pulse 91; Resp 18; Pulse Ox 100% on R/A; Pain 1/10; wg 07/23 20:00 Body Mass Index 32.50 (117.93 kg, 190.50 cm) iw MDM: 07/23 22:27 Patient medically screened. yenifer 07/24 00:31 ED course: NARX SCORE = 330. I discussed risks and benfits with the patient. Patient yenifer will follow up with gi for further evaluation. . 07/23 20:09 Order name: Acetaminophen iw 07/23 20:09 Order name: BMP iw 07/23 20:09 Order name: CBC with Diff; Complete Time: 22:06 iw 07/23 20:09 Order name: Ethanol; Complete Time: 22:06 iw 07/23 20:09 Order name: Hepatic Function; Complete Time: 22:29 iw 07/23 20:09 Order name: Protime (+inr); Complete Time: 22:06 iw 07/23 20:09 Order name: Ptt, Activated; Complete Time: 22:06 iw 07/23 20:09 Order name: Salicylate; Complete Time: 22:06 07/23 20:09 Order name: Urine Drug Screen; Complete Time: 22:29 07/23 20:09 Order name: Acetaminophen Level; Complete Time: 22:29 [facility] 07/23 20:09 Order name: Basic Metabolic Panel; Complete Time: 22:29 [facility] 07/23 21:49 Order name: Urine Dipstick-Ancillary; Complete Time: 22:06 [facility] 07/23 22:12 Order name: Lipase; Complete Time: 22:29 [facility] 07/23 20:09 Order name: EKG; Complete Time: 20:10 07/23 20:09 Order name: EKG - Nurse/Tech; Complete Time: 23:31 07/23 20:09 Order name: IV Saline Lock; Complete Time: 20:20 07/23 20:09 Order name: Labs collected and sent; Complete Time: 20:20 07/23 20:09 Order name: O2 Per Protocol; Complete Time: 22:59 07/23 20:09 Order name: O2 Sat Monitoring; Complete Time: 22:59 07/23 20:09 Order name: Urine Dipstick-Ancillary (obtain specimen); Complete Time: 21:45 07/23 22:06 Order name: CT Abd/Pelvis - IV Contrast Only [facility] 07/23 22:06 Order name: US Abdomen Limited [facility] Administered Medications: 07/23 20:20 Drug: NS 0.9% 1000 ml Route: IV; Rate: 1000 ml; Site: right antecubital; 07/24 00:59 Follow up: IV Status: Completed infusion; IV Intake: 1000ml 07/23 22:52 Drug: morphine 4 mg Route: IVP; Site: right antecubital; vg1 23:12 Follow up: Response: No adverse reaction; Marked relief of symptoms vg1 22:55 Drug: Valium (diazepam) 5 mg Route: IVP; Site: right antecubital; vg1 23:12 Follow up: Response: No adverse reaction; Marked relief of symptoms vg1 23:13 Drug: Lactated Ringers Solution 1000 ml Route: IV; Rate: 1 bolus; Site: right vg1 antecubital; 07/24 00:42 Drug: morphine 4 mg Route: IVP; Site: right antecubital; wg 00:59 Follow up: Response: No adverse reaction; Pain is decreased wg 00:43 Drug: Valium (diazepam) 5 mg Route: IVP; Rate: bolus; Infused Over: 2 mins; Site: right wg antecubital; 00:58 Follow up: Response: No adverse reaction; Anxiety decreased wg Disposition: 06:58 Co-signature as Attending Physician, Arnold Nuegnt MD I agree with the assessment ma2 and plan of care. PA/[employer]'s history reviewed, patient interviewed, and examined. I agree with assessment and care plan and confirm the diagnosis (es) above. Attestation: The patient's history, exam findings, diagnostics, and a summary of any interventions or procedures was reviewed in detail with Ruy BURNETT. Disposition Summary: 07/24/21 00:33 Discharge Ordered Location: Home [facility] Condition: Stable [facility] Diagnosis - Acute Pancreatitis [facility] - ETOH Abuse [facility] Followup: [facility] - With: Hector Nayak MD - When: 2 - 3 days - Reason: Recheck today's complaints, Continuance of care, Re-evaluation by your physician Followup: [facility] - With: Truman Robbins MD - When: 2 - 3 days - Reason: Recheck today's complaints, Continuance of care, Re-evaluation by your physician Discharge Instructions: - Discharge Summary Sheet [facility] - Acute Pancreatitis [facility] - Alcohol Abuse and Nutrition [facility] Forms: - Medication Reconciliation Form [facility] - Thank You Letter [facility] - Antibiotic Education [facility] - Prescription Opioid Use [facility] Prescriptions: - chlordiazepoxide HCl 10 mg Oral capsule - take 1 capsule by ORAL route 3 times per day; 30 capsule; Refills: 0, Product [facility] Selection Permitted - ondansetron 4 mg Oral tablet,disintegrating - place 1 tablet by TRANSLINGUAL route every 12 hours; 20 tablet; Refills: 0, [facility] Product Selection Permitted - Ultracet 37.5-325 mg Oral Tablet - take 1 tablet by ORAL route every 6 hours - for up to 5 days; do not exceed 8 jmm tablets per day.; 12 tablet; Refills: 0, Product Selection Permitted Signatures: Dispatcher [employer] EDRuy Yepez PA PA jmm Williams, Irene, RN RN iw Alzahri, Mohammad, MD MD nd2 Emily Carter RN RN vg1 Celso Wren, MARTÍN wg Corrections: (The following items were deleted from the chart) 07/23 20:20 20:09 Suicide Screening ([place]) ordered. iw iw 22:11 22:07 LIPASE+C.LAB.BRZ ordered. EDMS EDMS
[2021-07-24] MEDS ORDERED: MORPHINE 4 MG/ML SYR ONE (01:00)
[2021-07-24] MEDS ORDERED: DIAZEPAM 10 MG/2 ML INJ SYRINGE ONE (01:02)
[2021-07-24 01:06] VITALS: TEMP 97
[2021-07-24 01:08] VITALS: BP 117/64; O2SAT 100
--- NOTE | 2021-07-24 07:03 | RAD REPORT ---
EXAM DESCRIPTION: US - Abdomen Exam Limited - 07/23/2021 10:50 pm CLINICAL HISTORY: ABD PAIN COMPARISON: No comparisons FINDINGS: The gallbladder demonstrates no gallstones. No pericholecystic fluid or gallbladder wall t hickening. The common bile duct is normal measuring 6. The liver demonstrates no findings of intrahepatic biliary dilatation. IMPRESSION: Unremarkable examination.
--- NOTE | 2021-07-24 11:50 | RAD REPORT ---
EXAM DESCRIPTION: CT - Abdomen Pelvis W Contrast - 07/24/2021 6:43 am CLINICAL HISTORY: 31 years Male Right upper quadrant and mid abdominal pain. Patient stopped dri nking today. Nausea and vomiting. TECHNIQUE: Contiguous axial images obtained through the abdomen and pelvis following intravenous con trast administration. Coronal and sagittal reformatted images provided. This CT exam was performed according to our departmental dose-optimization program, which includes on e or more of the following dose reduction techniques: automated exposure control, adjustment of the m A and/or kV according to patient size, and/or use of iterative reconstruction technique. COMPARISON: No prior exams provided for comparison. FINDINGS: The lung bases are clear. There is steatosis of the liver without focal lesion. The gallbladder is abnormally distended but does not appear inflamed. No biliary dilatation. There is mild inflammation of the head and uncinate process of the pancreas consistent with acute waldrop creatitis. No loculated peripancreatic fluid collection or pancreatic ductal dilatation. The spleen, adrenal glands, right kidney, urinary bladder, and osseous structures are normal. Small l eft renal cyst. There is no bowel inflammation, obstruction, free intraperitoneal air, or ascites. The appendix is no rmal. IMPRESSION: Mild acute pancreatitis. Steatosis of the liver without focal lesion. Distended gallbladder without prior cholecystectomy infl ammation or biliary dilatation. Correlate with LFTs. Electronically signed by: Geraldine Ruiz MD 07/23/2021 11:34 PM CDT Due to temporary technical issues with the PACS/Fluency reporting system, reports are being signed by the in house radiologist without review as a courtesy to ensure prompt reporting. The interpreting r adiologist is fully responsible for the content of the report.
--- NOTE | 2021-07-24 12:51 | EKG ---
Test Date: 2021-07-23 Test Time: 23:27:32 It Manager: ARLIN MEASUREMENT RESULTS: Intervals: Rate: 92 PA: 128 QRSD: 88 QT: 370 QTc: 457 [place]: P: -8 PA: 128 QRS: 18 T: 23 INTERPRETIVE STATEMENTS: Normal sinus rhythm Normal ECG Compared to ECG 12/17/2020 11:25:43 Sinus tachycardia no longer present Left ventricular hypertrophy no longer present Electronically Signed On 07-24-21 12:50:25 CDT by Nick Hammond
== END 2021-07-24 00:56 | disposition home or self-care (01) ==
LOC: ER 18:47
DX: K85.90 Acute pancreatitis without necrosis or infection, unspecified (principal); F10.10 Alcohol abuse, uncomplicated; I10 Essential (primary) hypertension; Z88.2 Allergy status to sulfonamides
CPT/HCPCS: 96361; 93005; 85025; 80048; 36415; 80320; 80329 ×2; 85610; 80076; 85730; 81003; 83690; 80307; 74177; 90732; 76705; 96375; 96374; 99284; Q9967; J3360 ×2; J7120; J7030

== ENCOUNTER 2022-08-05 08:56 | Inpatient (IN) | payer OTHER, SELFPAY ==
--- OUTSIDE RECORDS SUMMARY | 2022-08-05 09:04 | XMS REPORT | Continuity of Care Document ---
:1990 Author Organization [facility] t Address [address] [place] [address] Care Team Providers Name Role Phone Pcp, Patient Does Not Have A Primary Care Physician [phone] Kaela Dowd LVN Attending Clinician Chan HSIEH, Chastity Howard Attending Clinician Luz Marina Sun MD Attending Clinician Rodriguez Andres MD Attending Clinician RODRIGUEZ ANDRES Attending Clinician Unavailable JEFF PARADA Attending Clinician Unavailable Jeff Parada Attending Clinician Rodriguez Andres MD Admitting Clinician RODRIGUEZ ANDRES Admitting Clinician Unavailable JEFF PARADA Admitting Clinician Unavailable Jeff Parada Admitting Clinician Problems Condition Condition Condition Status Onset Resolution Last Treating Co mments Source Name Details Category Date Date Treatment Clinician Date Intractabl Intractabl Disease Active U nivers e vomiting e vomiting 3-21 it y of with with 00:00: [place] nausea nausea 00 Medical Branch Obesity Obesity Disease Active Univers (BMI (BMI 3-21 ity of 30-39.9) 30-39.9) 00:00: [place] 00 Medical Branch Pancreatit Pancreatit Disease Active U nivers is, is, 3-21 ity of unspecifie [place]specifie [place] 00 Medical pancreatit pancreatit Br anch is type is type ACUTE ACUTE Diagnosis Active 2020-08-27 Mem oria ALCOHOLIC ALCOHOLIC 08-22 09:42:00 l PANCREATIT PANCREATIT 00:00: He rmann IS IS Active 00 08/22/2020 [facility] PANCREATIT PANCREATI Diagnosis Active 2020-08-22 Memoria IS TIS Active 08-22 22:44:00 l 08/22/2020 00:00: Bakari n [facility] 00 Per Acute Acute Problem 2020-08-28 Memor ia pancreatit pancreatit 21:20:21 l is with is with Per uninfected uninfected necrosis, necrosis, unspecifie unspecifie d d 08/28/2020 [facility] ALCOHOL ALCOHOL Diagnosis Active 2020-08-27 Memoria INDUCED INDUCED 09:42:00 l ACUTE ACUTE [place] PANCREATIT PANCREATIT IS WITHO IS WITHO Active [facility] ACUTE ACUTE Diagnosis Active 2020-08-22 Mem oria PANCREATIT PANCREATIT 22:44:00 l IS WITH IS WITH Per UNINFECTED UNINFECTED NECRO NECRO Active [facility] Allergies, Adverse Reactions, Alerts Allergy Allergy Status Severity Reaction(s) Onset Inactive Treating Comm ents Source Name Type Date Date Clinician Sulfa Propensi Active Hives Univers (Sulfona ty to 3-20 ity of mide adverse 00:00: [place] Antibiot reaction 00 Medica l ics) s Branch SULFA Drug Active Hives Univers (SULFONA Class 3-20 ity of MIDE 00:00: [place] ANTIBIOT 00 Medical ICS) Branch sulfa sulfa Active Memoria drugs drugs l Per Social History Social Habit Start Date Stop Date Quantity Comments Source Exposure to Not sure [facility] SARS-CoV-2 (event) Medica l Branch Tobacco use and 2022-02-10 2022-02-10 Never used [facility] [place] exposure 00:00:00 00:00:00 Medical Branch Tobacco Comment 2022-02-10 2022-02-10 uses vape [facility] [place] 00:00:00 00:00:00 Medical Branch Social History 2020-08-23 2020-08-23 [facility] ermann 04:06:38 04:06:38 Sex Ass[birth year] At [birth year] [facility] [place] 00:00:00 00:00:00 Medical Branch Smoking Status Start Date Stop Date Source Never smoker [facility] Medications Ordered Filled Start Stop Current Ordering Indication Dosage Frequency Signature Comments Components Source Medication Medication Date Date Medication? Clinician (SIG) Name Name foLIC acid 2021- No [id number] 1mg Take 1 Univers 1 mg tablet 3-24 -24 tablet by it y of 00:00: 04:59 mouth [place] 00 :00 daily for Medical 30 days. Branch foLIC acid 2021- No [id number] 1mg Take 1 Univers 1 mg tablet 3-24 -24 tablet by it y of 00:00: 04:59 mouth [place] 00 :00 daily for Medical 30 days. [place] thiamine 2021- No [id number] 100mg Take 1 Univers 100 mg 3-24 -09 tablet by ity of tablet 00:00: 04:59 mouth [place] 00 :00 daily for Medical 15 days. Branch thiamine 2021- No [id number] 100mg Take 1 Univers 100 mg 3-24 04-09 tablet by ity of tablet 00:00: 04:59 mouth [place] 00 :00 daily for Medical 15 days. [place] buspirone Yes Take by Unive rs HCl (BUSPAR 3-23 mouth. ity of ORAL) 16:34: [address] fluoxetine Yes 40mg Take 40 mg U nivers HCl (PROZAC 3-23 by mouth. ity of ORAL) 16:34: [address] LISINOPRIL Yes 20mg Take 20 mg U nivers ORAL 3-23 by mouth. ity of 16:34: [address] hydroxyzine Yes Take by Uni vers pamoate 3-23 mouth. ity of (VISTARIL 16:34: [address] buspirone Yes Take by Unive rs HCl (BUSPAR 3-23 mouth. ity of ORAL) 16:34: [address] fluoxetine Yes 40mg Take 40 mg U nivers HCl (PROZAC 3-23 by mouth. ity of ORAL) 16:34: [address] LISINOPRIL Yes 20mg Take 20 mg U nivers ORAL 02-12 by mouth. ity of 16:34: [address] Branch hydroxyzine Yes Take by Uni vers pamoate 02-12 mouth. ity of (VISTARIL 16:34: [place] ORAL) [address] [place] [address] Branch metoprolol 2021- No Take by Uni vers succinate 02-12 mouth ity of (TOPROL XL 15:00: 00:00 daily. [place] ORAL) 51 :00 [facility] propranoloL 2021- No 10mg Take 10 mg Univers 10 mg 02-12 by mouth ity of tablet 15:00: 00:00 as needed. [place] 51 :00 [facility] Branch oxazepam 2021- No 15mg 15 mg, Univer s (SERAX) 02-12 Oral, Q12H ity o f capsule 15 14:42: 14:44 [place], 2 [place] mg 39 :00 doses, Medical First dose Branch on Thu02/12/22 at 0945, Last dose on Thu02/12/22 at 2145, Routine dicyclomine Yes 10mg 10 mg, Univ ers (BENTYL) 02-11 Oral, QID, ity o f capsule 10 23:45: First dose [place] mg 00 on [facility] 02/11/22 at Branch 1845, Until Discontinu ed, Routine sennosides- Yes 1{tbl} 1 tablet, Univers docusate 02-11 Oral, ity of sodium 23:30: DAILY, [place] (SENOKOT-S) 00 First dose Me dical 8.6-50 mg on [facility] per tablet 02/11/22 at 1 tablet 1830, Until Discontinu ed, Routine KCL No 40meq 40 mEq, Univers (KLOR-CON 02-11 Oral, ity of M20) tablet 14:45: 13:55 ONCE, 1 [place] 40 mEq 00 :00 dose, On [facility] 02/11/22 at 0945, Routine morpHINE No 4mg 4 mg, Slow Un daylin injection 4 3-22 03-23 IV Push, ity of mg 09:07: 08:06 Q4HPRN, [place] 51 :51 Starting Medical on Thu02/11/22 at 0407, Until Thu02/12/22 at 0306, Routine, Pain (scale 7-10) hydralAZINE 2021-0 Yes 10mg 10 mg, Univ ers (APRESOLINE 02-11 Slow IV ity o f ) injection 04:56: Push, [place] 10 mg 12 Q4HPRN, Medical Starting Branch on Thu02/10/22 at 2356, Until Discontinu ed, Routine, DBP=>10 0; SBP=>160, DBP=>100; SBP=>180<b r>Indicati on: Hypertensi ve Emergency enoxaparin 2021-0 Yes 40mg 40 mg, Unive rs (LOVENOX) 02-10 Subcutaneo ity of injection 22:00: [place], DAILY, [place] 40 mg 00 First dose Medical on Thu02/10/22 at 1700, Until Discontinu ed, Routine foLIC acid 0 Yes 1mg 1 mg, Univer s (FOLATE) 02-10 Oral, ity of tablet 1 mg 14:00: DAILY, [place] 00 First dose Medical on Thu02/10/22 at 0900, Until Discontinu ed, Routine thiamine 2021-0 Yes 100mg 100 mg, Unive rs (VITAMIN 3-21 Oral, ity of B1) tablet 14:00: DAILY, [place] 100 mg 00 First dose Medical on Thu02/10/22 at 0900, Until Discontinu ed, Routine lisinopriL 0 Yes 20mg 20 mg, Unive rs (PRINIVIL,Z 3-21 Oral, ity of ESTRIL) 14:00: DAILY, [place] tablet 20 00 First dose Medi xin mg on Thu02/10/22 at 0900, Until Discontinu ed FLUoxetine 2021-0 Yes 40mg 40 mg, Unive rs (PROZAC) 3- Oral, ity of capsule 40 14:00: DAILY, [place] mg 00 First dose Medical on Thu Branch 02/10/22 at 0900, Until Discontinu ed LORazepam 2021-0 Yes 1mg 1 mg, Slow Un daylin (ATIVAN) 02-10 IV Push, ity of injection 1 09:52: PRN, 2 [place] mg 17 doses, Medical Starting Branch on Thu02/10/22 at 0452, Until Discontinu ed, Routine, Agitation morpHINE 2021-0 2021- No 4mg 4 mg, Slow Un daylin injection 4 02-10 IV Push, ity of mg 08:49: 08:28 [facility] [place] 55 :49 Starting Medical on Thu02/10/22 at 0349, Until Thu02/11/22 at 0328, Routine, Pain (scale 7-10) LORazepam 2021-0 Yes 1mg 1 mg, Slow Un daylin (ATIVAN) 02-10 IV Push, ity of injection 1 08:43: Q4HPRN, [place] mg 17 Starting Medical on Thu02/10/22 at 0343, Until Discontinu ed, Routine, Agitation, alcohol withdrawal symptoms oxazepam 2021-0 Yes 15mg 15 mg, Univers (SERAX) 02-10 Oral, ity of capsule 15 08:42: Q4HPRN, [place] mg 39 Starting Medical on Thu Branch 02/10/22 at 0342, Until Discontinu ed, Routine, Only while awake for DBP equal to or greater than 100, HR equal to or greater than 100. NaCl 0.9% 0 Yes 1000mL at 125 Univ ers (NS) IV 3-21 mL/hr, IV ity of infusion 08:30: Infusion, [place] 1,000 mL 00 CONTINUOUS Medic al , Starting Branch on Thu02/10/22 at 0330, Until Discontinu ed, Routine ondansetron 2021-0 Yes 4mg 4 mg, Slow Univers (ZOFRAN 02-10 IV Push, ity of (PF)) 08:29: [place], [place] injection 4 49 Starting Medi xin mg on Thu Branch 02/10/22 at 0329, Until Discontinu ed, Routine, Nausea and Vomiting (N/V) acetaminoph 2021-0 Yes 650mg 650 mg, Un daylin en 02-10 Oral, ity of (TYLENOL) 08:29: [place], [place] tablet 650 49 Starting Medic al mg on Thu Branch 02/10/22 at 0329, Until Discontinu ed, Routine, Pain (scale 1-3) traMADoL 2021- No 50mg 50 mg, Univer s (ULTRAM) 02-10 Oral, ity of tablet 50 08:29: 08:28 Q8HPRN, [place] mg 49 :49 Starting Medical on Thu Branch 02/10/22 at 0329, Until 02/12/22 at 0328, Routine, Pain (scale 4-6) morpHINE 0 2021- No 4mg 4 mg, Slow Un daylin injection 4 02-10 IV Push, ity of mg 07:30: 06:37 ONCE, 1 [place] 00 :00 dose, On Medical [facility] 02/10/22 at 0230, STAT ondansetron No 4mg 4 mg, Slow Univers (ZOFRAN 02-10 IV Push, ity of (PF)) 06:37: 06:38 ONCE, 1 [place] injection 4 00 :00 dose, On Medi xin mg [facility] 02/10/22 at 0145, TIO pantoprazol No 40mg 40 mg, Uni vers e 02-10 Slow IV ity of (PROTONIX) 05:30: 04:42 Push, [place] injection 00 :00 ONCE, 1 Medical 40 mg dose, On Branch [facility] 02/10/22 at 0030 lactated Yes 1000mL at 500 Unive rs ringers IV 3-21 mL/hr, ity of infusion 05:00: 1,000 mL, [place] 1,000 mL 00 IV Medical Infusion, Branch CONTINUOUS , Starting on Thu02/10/22 at 0000, Until Discontinu ed, TIO LORazepam 2021- No 1mg 1 mg, Slow U nivers (ATIVAN) 02-10 IV Push, ity of injection 1 05:00: 04:12 ONCE, 1 [place] mg 00 :00 dose, On Medical [facility] 02/10/22 at 0000, STAT ondansetron 2021- No 4mg 4 mg, Slow Univers (ZOFRAN 02-10 IV Push, ity of (PF)) 05:00: 04:12 ONCE, 1 [place] injection 4 00 :00 dose, On Medi xin mg [facility] 02/10/22 at 0000, TIO morpHINE 2021- No 4mg 4 mg, Slow Un daylin injection 4 02-10 IV Push, ity of mg 05:00: 04:12 ONCE, 1 [place] 00 :00 dose, On Medical Mon Branch 02/10/22 at 0000, STAT NaCl 0.9% 2021- No 1000mL at 999 Uni vers (NS) bolus 02-10 mL/hr, ity of infusion 04:30: 03:28 1,000 mL, [place] 1,000 mL 00 :00 IV Medical Infusion, Branch ONCE, 1 dose, On 02/09/22 at 2330, TIO iohexol 2021- No [id number] 120mL 120 mL, U nivers (OMNIPAQUE 02-10 Intravenou it y of 350 04:15: 04:06 s, ONCE, 1 [place] BULK-100 00 :00 dose, On Medical mL) [place] Branch injection 02/09/22 at 120 mL 2315, Routine omega-3 2019-11 Yes 1 gm = 1 Memori a polyunsatur 0-04 cap, PO, l ated fatty 16:30: BID, # 60 He rmann acids 1000 00 cap, 0 mg oral Refill(s), capsule Pharmacy: [facility] #[id number], 190.5, cm, 08/22/20 23:01:00 CDT, Height, 122.045, kg, 08/22/20 23:01:00 CDT, Weight Fenofibrate 2019-11 Yes 145 mg = 1 Memoria 145 MG Oral 0-04 tab, PO, l Tablet 16:30: Daily, # [place] 00 30 tab, 0 Refill(s), Pharmacy: [facility] #[id number], 190.5, cm, 08/22/20 23:01:00 CDT, Height, 122.045, kg, 08/22/20 23:01:00 CDT, Weight Fenofibrate 2019-11 Yes 145 mg = 1 Memoria 145 MG Oral 0-04 tab, PO, l Tablet 16:30: Daily, # [place] 00 30 tab, 0 Refill(s), Pharmacy: [facility] #[id number], 190.5, cm, 08/22/20 23:01:00 CDT, Height, 122.045, kg, 08/22/20 23:01:00 CDT, Weight omega-3 2019-11 Yes 1 gm = 1 Memori a polyunsatur 0-04 cap, PO, l ated fatty 16:30: BID, # 60 He rmann acids 1000 00 cap, 0 mg oral Refill(s), capsule [id number], 190.5, cm, 08/22/20 23:01:00 CDT, Height, 122.045, kg, 08/22/20 23:01:00 CDT, Weight ciprofloxac 2019-11 Yes 500 mg = 1 Memoria in 500 mg 0-04 tab, PO, l oral tablet 16:26: Q12H, for H ermann 00 UTI, X 3 day, # 6 tab, 0 Refill(s), [id number], 190.5, cm, 08/22/20 23:01:00 CDT, Height, 122.045, kg, 08/22/20 23:01:00 CDT, Weight Metronidazo 2019-11 Yes 500 mg = 1 Memoria le 500 MG 0-04 tab, PO, l Oral Tablet 16:26: Q8H, X 3 He rmann [Flagyl] 00 day, # 9 tab, 0 Refill(s), [id number], 190.5, cm, 08/22/20 23:01:00 CDT, Height, 122.045, kg, 08/22/20 23:01:00 CDT, Weight thiamine 2019-11 Yes 100 mg = 1 Mem oria 100 mg oral 0-04 tab, PO, l tablet 16:26: Daily, X Per 00 30 day, # 30 tab, 0 Refill(s), [id number], 190.5, cm, 08/22/20 23:01:00 CDT, Height, 122.045, kg, 08/22/20 23:01:00 CDT, Weight Folic Acid 2019-11 Yes 1 mg = 1 Mem oria 1 MG Oral 0-04 tab, PO, l Tablet 16:26: Daily, # Per 00 30 tab, 0 Refill(s), Pharmacy: [facility] #[id number], 190.5, cm, 08/22/20 23:01:00 CDT, Height, 122.045, kg, 08/22/20 23:01:00 CDT, Weight Chlordiazep 2019-11 Yes 10 mg = 1 M emoria oxide 0-04 cap, PO, l Hydrochlori 16:26: QID, X 3 He rmann de 10 MG 00 day, # 12 Oral cap, 0 Capsule Refill(s), Pharmacy: [facility] #[id number], 190.5, cm, 08/22/20 23:01:00 CDT, Height, 122.045, kg, 08/22/20 23:01:00 CDT, Weight Lorazepam 1 2019-11 Yes 1 mg = 1 Me moria MG Oral 0-04 tab, PO, l Tablet 16:26: TID, PRN [place] [Ativan] 00 as needed for anxiety, X 7 day, # 24 tab, 0 Refill(s), Pharmacy: [facility] #[id number], 190.5, cm, 08/22/20 23:01:00 CDT, Height, 122.045, kg, 08/22/20 23:01:00 CDT, Weight Famotidine 2019-11 Yes 20 mg = 1 Me moria 20 MG Oral 0-04 tab, PO, l Tablet 16:26: Q12H, # 14 Sharita nn [Pepcid] 00 tab, 0 Refill(s), Pharmacy: [facility] #[id number], 190.5, cm, 08/22/20 23:01:00 CDT, Height, 122.045, kg, 08/22/20 23:01:00 CDT, Weight labetalol 2019-11 Yes 100 mg = 1 Me moria 100 mg oral 0-04 tab, PO, l tablet 16:26: TID, # 90 Bakari n 00 tab, 0 Refill(s), Pharmacy: [facility] #[id number], 190.5, cm, 08/22/20 23:01:00 CDT, Height, 122.045, kg, 08/22/20 23:01:00 CDT, Weight ciprofloxac 2019-11 Yes 500 mg = 1 Memoria in 500 mg 0-04 tab, PO, l oral tablet 16:26: Q12H, for H ermann 00 UTI, X 3 day, # 6 tab, 0 Refill(s), Pharmacy: [facility] #[id number], 190.5, cm, 08/22/20 23:01:00 CDT, Height, 122.045, kg, 08/22/20 23:01:00 CDT, Weight Metronidazo 2019-11 Yes 500 mg = 1 Memoria le 500 MG 0-04 tab, PO, l Oral Tablet 16:26: Q8H, X 3 He rmann [Flagyl] 00 day, # 9 tab, 0 Refill(s), Pharmacy: [facility] #[id number], 190.5, cm, 08/22/20 23:01:00 CDT, Height, 122.045, kg, 08/22/20 23:01:00 CDT, Weight thiamine 2019-11 Yes 100 mg = 1 Mem oria 100 mg oral 0-04 tab, PO, l tablet 16:26: Daily, X Per 00 30 day, # 30 tab, 0 Refill(s), Pharmacy: [facility] #[id number], 190.5, cm, 08/22/20 23:01:00 CDT, Height, 122.045, kg, 08/22/20 23:01:00 CDT, Weight Folic Acid 2019-11 Yes 1 mg = 1 Mem oria 1 MG Oral 0-04 tab, PO, l Tablet 16:26: Daily, # [place] 00 30 tab, 0 Refill(s), Pharmacy: [facility] #[id number], 190.5, cm, 08/22/20 23:01:00 CDT, Height, 122.045, kg, 08/22/20 23:01:00 CDT, Weight Chlordiazep 2019-11 Yes 10 mg = 1 M emoria oxide 0-04 cap, PO, l Hydrochlori 16:26: QID, X 3 He rmann de 10 MG 00 day, # 12 Oral cap, 0 Capsule Refill(s), Pharmacy: [facility] #[id number], 190.5, cm, 08/22/20 23:01:00 CDT, Height, 122.045, kg, 08/22/20 23:01:00 CDT, Weight Lorazepam 1 2019-11 Yes 1 mg = 1 Me moria MG Oral 0-04 tab, PO, l Tablet 16:26: TID, PRN Per [Ativan] 00 as needed for anxiety, X 7 day, # 24 tab, 0 Refill(s), Pharmacy: [facility] #[id number], 190.5, cm, 08/22/20 23:01:00 CDT, Height, 122.045, kg, 08/22/20 23:01:00 CDT, Weight Famotidine 2019-11 Yes 20 mg = 1 Me moria 20 MG Oral 0-04 tab, PO, l Tablet 16:26: Q12H, # 14 Sharita nn [Pepcid] 00 tab, 0 Refill(s), Pharmacy: [facility] #[id number], 190.5, cm, 08/22/20 23:01:00 CDT, Height, 122.045, kg, 08/22/20 23:01:00 CDT, Weight labetalol 2019-11 Yes 100 mg = 1 Me moria 100 mg oral 0-04 tab, PO, l tablet 16:26: TID, # 90 Bakari n 00 tab, 0 Refill(s), Pharmacy: [facility] #[id number], 190.5, cm, 08/22/20 23:01:00 CDT, Height, 122.045, kg, 08/22/20 23:01:00 CDT, Weight Potassium 2019-11 Yes Notes: Memori a Chloride 0-04 (Same as: l 1.33 MEQ/ML 16:06: Potassium H ermann Oral 00 Chloride) Solution Potassium 2019-11 Yes Notes: Memori a Chloride 0-04 (Same as: l 1.33 MEQ/ML 16:06: Potassium H ermann Oral 00 Chloride) Solution Tramadol 2019-11 No Notes: Not Mem oria 0-03 to exceed l 22:12: 400mg/day. Per 00 (Same As: Ultram) Tramadol 2019-11 No Notes: Not Mem oria 0-03 to exceed l 22:12: 400mg/day. Per 00 (Same As: Ultram) Lisinopril 2019-11 No Notes: Memor ia 0-03 (Same as: l 17:00: Prinivil, Per 00 Zestril) Lisinopril 2019-11 No Notes: Memor ia 0-03 (Same as: l 17:00: Prinivil, [place] 00 Zestril) Potassium 2019-11 No Notes: Memori a Chloride 0-03 (Same as: l 16:35: K-Dur 20) [place] 00 "Do Not Crush" Give with food and full glass of water For patients unable to swallow tablet, dissolve in one half glass of water. Allow about 2 minutes for the tablets to disintegra te. Stir before giving to prepare slurry and administer . Please exclude Patient s with feeding tube less than 14 Lithuanian (Dobhoff, J-tube etc) and pediatric and patients. potassium 2019-11 No Notes: Memori a phosphate-s 0-03 (Same as: l odium 16:35: Phos-NaK) Per phosphate 00 Each 1.5 250 mg-280 gm pkt has mg-160 mg 250mg oral powder phosphorou for s. Mix reconstitut w/2.5oz ion water and stir. potassium 2019-11 No Notes: Memori a phosphate 0-03 (Same as: l 16:35: K [place] 00 Phosphate. ) Do not infuse phosphorou s concurrent ly in the same line as TPN or IVF that contains calcium. For double lumen central lines, phosphorou s may be infused in a separate lumen from TPN. 1 mMol phoshate has 1.47 mEq potassium Infuse over 4 hours sodium 2019-11 No Notes: Memoria phosphate 0-03 Infuse l 16:35: over 4 [place] 00 hour. Do not infuse phosphorou s concurrent ly in the same line as TPN or IVF that contains calcium. For double lumen central lines, phosphorou s may be infused in a separate lumen from TPN. Magnesium 2019-11 No Notes: Memori a Sulfate 0-03 WASTE: F/P l 16:35: - Sink; E [place] 00 - Municipal Trash Bin Magnesium 2019-11 No Notes: Memori a Oxide 0-03 (Same as: l 16:35: Mag-Ox [place] 00 400) Magnesium oxide 199qi=948q g elemental magnesium Dose=____m g magnesium oxide (___mg elemental magnesium) Calcium 2019-11 No Notes: Memoria Gluconate 0-03 WASTE: F/P l 16:35: - Sink; E Per 00 - Municipal Trash Bin Potassium 2019-11 No Notes: Memori a Chloride 0-03 (Same as: l 16:35: K-Dur 20) "Do Not Crush" Give with food and full glass of water For patients unable to swallow tablet, dissolve in one half glass of water. Allow about 2 minutes for the tablets to disintegra te. Stir before giving to prepare slurry and administer . Please exclude Patient s with feeding tube less than 14 [place] (Dobhoff, J-tube etc) and pediatric and patients. potassium 2019-11 No Notes: Memori a phosphate-s 0-03 (Same as: l odium 16:35: Phos-NaK) [place] phosphate 00 Each 1.5 250 mg-280 gm pkt has mg-160 mg 250mg oral powder phosphorou for s. Mix reconstitut w/2.5oz ion water and stir. potassium 2019-11 No Notes: Memori a phosphate 0-03 (Same as: l 16:35: K Phosphate. ) Do not infuse phosphorou s concurrent ly in the same line as TPN or IVF that contains calcium. For double lumen central lines, phosphorou s may be infused in a separate lumen from TPN. 1 mMol phoshate has 1.47 mEq potassium Infuse over 4 hours sodium 2019-11 No Notes: Memoria phosphate 0-03 Infuse l 16:35: over 4 [place] 00 hour. Do not infuse phosphorou s concurrent ly in the same line as TPN or IVF that contains calcium. For double lumen central lines, phosphorou s may be infused in a separate lumen from TPN. Magnesium 2019-11 No Notes: Memori a Sulfate 0-03 WASTE: F/P l 16:35: - Sink; E [place] 00 - Municipal Trash Bin Magnesium 2019-11 No Notes: Memori a Oxide 0-03 (Same as: l 16:35: Mag-Ox [place] 400) Magnesium oxide 493px=243c g elemental magnesium Dose=____m g magnesium oxide (___mg elemental magnesium) Calcium 2019-11 No Notes: Memoria Gluconate 0-03 WASTE: F/P l 16:35: - Sink; E Per 00 - [facility] Trash Bin Potassium 2019-11 No Notes: Memori a Chloride 0-03 (Same as: l 1.33 MEQ/ML 16:34: Potassium H ermann Oral 00 Chloride) Solution Potassium 2019-11 No Notes: Memori a Chloride 0-03 (Same as: l 1.33 MEQ/ML 16:34: Potassium H ermann Oral 00 Chloride) Solution Labetalol 2019-11 No Notes: Memori a 0-03 With food. l 15:00: (Same [place] 00 as:Trandat e, Normodyne) Labetalol 2019-11 No Notes: Memori a 0-03 With food. l 15:00: (Same Per 00 as:Trandat e, Normodyne) Lactulose 2019-11 No Notes: Memori a 667 MG/ML 0-02 (Same l Oral 21:03: as:Chronul Per Solution 00 ac) Haldol 2019-11 No Notes: Memoria 0-02 (Same as: l 21:03: Haldol) Per Lactulose 2019-11 No Notes: Memori a 667 MG/ML 0-02 (Same l Oral 21:03: as:Chronul Per Solution 00 ac) Haldol 2019-11 No Notes: Memoria 0-02 (Same as: l 21:03: Haldol) [place] Ciprofloxac 2019-11 No Notes: Do M emoria in 0-02 not l 14:00: refrigerat Per 00 e Flagyl 2019-11 No Notes: Memoria 0-02 (Same as: l 14:00: Flagyl) Per Avoid alcohol. Ciprofloxac 2019-11 No Notes: Do M emoria in 0-02 not l 14:00: refrigerat [place] 00 e Flagyl 2019-11 No Notes: Memoria 0-02 (Same as: l 14:00: Flagyl) Per 00 Avoid alcohol. Famotidine 2019-11 No Notes: Memor ia 20 MG Oral 0-02 (Same as: l Tablet 02:00: Pepcid) Per [Pepcid] 00 168 HR 2019-11 No Notes: Memoria Clonidine 0-02 Patch l 0.60933 02:00: delivers Bakari n MG/HR 00 0.2 mg/24 Transdermal hours; Patch Patch is applied weekly. "Remove old patch before applicatio n of new patch" (Same As: Catapres-T TS-2) Famotidine 2019-11 No Notes: Memor ia 20 MG Oral 0-02 (Same as: l Tablet 02:00: Pepcid) [place] [Pepcid] 00 168 HR 2019-11 No Notes: Memoria Clonidine 0-02 Patch l 0.44940 02:00: delivers Bakari n MG/HR 00 0.2 mg/24 Transdermal hours; Patch Patch is applied weekly. "Remove old patch before applicatio n of new patch" (Same As: Catapres-T TS-2) Labetalol 2019-11 No Notes: Memori a 0-02 (Same as: l 01:41: Normodyne, Per 00 Trandate) Push over 2 minutes Give bolus over 2-3 minutes. Labetalol 2019-11 No Notes: Memori a 0-02 (Same as: l 01:41: Normodyne, Per 00 Trandate) Push over 2 minutes Give bolus over 2-3 minutes. Fenofibrate 2019-11 No Notes: Reagan sharonda 160 MG Oral 0-01 (Same as: l Tablet 14:00: Tricor) Per 00 omega-3 2019-11 No Notes: Memoria polyunsatur 0-01 (Same as: l ated fatty 14:00: [place], Herm beverly acids 00 formally named [place]) "Do Not Crush" Chlordiazep 2019-11 No Notes: Reagan sharonda oxide 0-01 (Same As: l Hydrochlori 14:00: Librium) He rmann de 10 MG Oral Capsule Folic Acid 2019-11 No Notes: Memor ia 0-01 (Same as: l 14:00: Folvite) Per 00 multivitami 2019-11 No Notes: Reagan sharonda n 0-01 (Same l 14:00: as:Thera) WASTE: F/P - Black; E - Municipal Trash Bin Take with food. Thiamine 2019-11 No Notes: Memoria 0-01 (Same As: l 14:00: Vitamin Per 00 B1) multivitami 2019-11 No Notes: Reagan sharonda n with 0-01 (Same l minerals 14:00: as:Thera-M Her newberry 00 , Theragran- M) WASTE: F/P - Black; E - Municipal Trash Bin Give with food. Fenofibrate 2019-11 No Notes: Reagan sharonda 160 MG Oral 0-01 (Same as: l Tablet 14:00: Tricor) omega-3 2019-11 No Notes: Memoria polyunsatur 0-01 (Same as: l ated fatty 14:00: Lov[place], Herm beverly acids 00 formally named [place]) "Do Not Crush" Chlordiazep [...] Memoria 0-01 (Same as: l 13:26: Reglan) Reglan 2019-11 No Notes: Memoria 0-01 (Same as: l 13:26: Reglan) Lorazepam 2019-11 No Notes: Memori a 0-01 (Same as: l 13:14: Ativan) Clonidine 2019-11 No Notes: Memori a 0-01 (Same As: l 13:14: Catapres) Lorazepam 2019-11 No Notes: Memori a 0-01 (Same as: l 13:14: Ativan) Clonidine 2019-11 No Notes: Memori a 0-01 (Same As: l 13:14: Catapres) Phenergan 2019-11 No 12.5 mg, Reagan sharonda 0-01 Route: l 13:13: IVPB, Q4H, Dosing Weight 122.045, kg, PRN Nausea & Vomiting, Start date: 08/23/20 8:13:00 CDT, Duration: 30 day, Stop date: 09/22/20 8:12:00 CDT Phenergan 2019-11 No 12.5 mg, Reagan sharonda 0-01 Route: l 13:13: IVPB, Q4H, Dosing Weight 122.045, kg, PRN Nausea & Vomiting, Start date: 08/23/20 8:13:00 CDT, Duration: 30 day, Stop date: 09/22/20 8:12:00 CDT meropenem 2019-11 No Notes: Memori a 0-01 Same as l 13:00: Merrem Lovenox 2019-11 No Notes: Memoria 0-01 (Same as: l 13:00: Lovenox) meropenem 2019-11 No Notes: Memori a 0-01 Same as l 13:00: Merrem Lovenox 2019-11 No Notes: Memoria 0-01 (Same as: l 13:00: Lovenox) Metoprolol 2019-11 No Notes: Memor ia 0-01 (Same as: l 07:07: Lopressor) Push over 2 minutes Metoprolol 2019-11 No Notes: Memor ia 0-01 (Same as: l 07:07: Lopressor) Push over 2 minutes lisinopril 2019-11 Yes 10 mg = 1 Me moria 10 mg oral 0-01 tab, PO, l tablet 04:14: Daily, # Per 00 30 tab, 0 Refill(s) NS (Bolus) 2019-11 No 1,000 mL, Me moria IV 0-01 1,000 l 04:14: ml/hr, Per 00 Infuse Over: 1 hr, Route: IV, 1,000, Drug form: INJ, ONCE, Priority: STAT, Dosing Weight 122.045 kg, Start date: 08/22/20 23:14:00 CDT, Stop date: 08/22/20 23:14:00 CDT, 0 lisinopril 2019-11 Yes 10 mg = 1 Me moria 10 mg oral 0-01 tab, PO, l tablet 04:14: Daily, # Per 00 30 tab, 0 Refill(s) NS (Bolus) 2019-11 No 1,000 mL, Me moria IV 0-01 1,000 l 04:14: ml/hr, Infuse Over: 1 hr, Route: IV, 1,000, Drug form: INJ, ONCE, Priority: STAT, Dosing Weight 122.045 kg, Start date: 08/22/20 23:14:00 CDT, Stop date: 08/22/20 23:14:00 CDT, 0 Ativan 2019-11 No Notes: Memoria 0-01 (Same as: l 04:13: Ativan) Ativan 2019-11 No Notes: Memoria 0-01 (Same as: l 04:13: Ativan) NS 1,000 mL 2019-11 No 1,000 mL, M emoria 0-01 Rate: 100 l 04:11: ml/hr, Infuse over: 10 hr, Route: IV, Dosing Weight 122.045 kg, Total Volume: 1,000, Start date: 08/22/20 23:11:00 CDT, Duration: 30 day, Stop date: 09/21/20 23:10:00 CDT, 2.56, m2, 0 Dilaudid 2019-11 No Notes: Memoria 0-01 Same as: l 04:11: Dilaudid NS 1,000 mL 2019-11 No 1,000 mL, M emoria 0-01 Rate: 100 l 04:11: ml/hr, Infuse over: 10 hr, Route: IV, Dosing Weight 122.045 kg, Total Volume: 1,000, Start date: 08/22/20 23:11:00 CDT, Duration: 30 day, Stop date: 09/21/20 23:10:00 CDT, 2.56, m2, 0 Dilaudid 2019-11 No Notes: Memoria 0-01 Same as: l 04:11: Dilaudid Dextrose 2019-11 No 12.5 gm, Memor ia 50% Syringe 0-01 25 mL, l (D50W) 04:10: Route: [place] 00 IVP, Drug Form: INJ, Dosing Weight 122.045, kg, PRN, PRN Blood Glucose Results, Start date: 08/22/20 23:10:00 CDT, Duration: 30 day, Stop date: 09/21/20 23:09:00 CDT, 0 Glucagon 2020-1 No 1 mg, Memoria 0-01 Route: IM, l 04:10: Drug form: Per PDR/INJ, PRN, Dosing Weight 122.045, kg, PRN Blood Glucose Results, Start date: 08/22/20 23:10:00 CDT, Duration: 30 day, Stop date: 09/21/20 23:09:00 CDT, 0 Ondansetron 2020-1 No Notes: Reagan sharonda 0-01 (Same as: l 04:10: Sandy) Per MEDICATION WASTE Product Size: 4 mg Product Wasted: ___ mg Dextrose 2020- No 12.5 gm, Memor ia 50% Syringe 0-01 25 mL, l (D50W) 04:10: Route: Per 00 IVP, Drug Form: INJ, Dosing Weight 122.045, kg, PRN, PRN Blood Glucose Results, Start date: 08/22/20 23:10:00 CDT, Duration: 30 day, Stop date: 09/21/20 23:09:00 CDT, 0 Glucagon 2020- No 1 mg, Memoria 0-01 Route: IM, l 04:10: Drug form: Per PDR/INJ, PRN, Dosing Weight 122.045, kg, PRN Blood Glucose Results, Start date: 08/22/20 23:10:00 CDT, Duration: 30 day, Stop date: 09/21/20 23:09:00 CDT, 0 Ondansetron 2020-1 No Notes: Reagan sharonda 0-01 (Same as: l 04:10: Sandy) Per MEDICATION WASTE Product Size: 4 mg Product Wasted: ___ mg Vital Signs Vital Name Observation Time Observation Value Comments Source Systolic blood 2022-02-12 17:02:00 158 mm[Hg] Ino bonnery [facility] Diastolic blood 2022-02-12 17:02:00 94 mm[Hg] [facility] Heart rate 2022-02-12 17:02:00 84 /min [facility] Respiratory rate 2022-02-12 17:02:00 18 /min [facility] Oxygen saturation in 2022-02-12 17:02:00 95 /min [facility] Arterial blood by [facility] Pulse oximetry Branch Body temperature 2022-02-12 17:01:00 36.11 Gladys [facility] Body weight 2022-02-12 09:19:00 130.001 kg [facility] BMI 2022-02-12 09:19:00 35.82 kg/m2 [facility] Body height 2022-02-10 08:06:00 190.5 cm [facility] Temperature Oral (F) 2020-08-26 13:00:00 98.9 F [facility] Per Heart Rate 2020-08-26 13:00:00 [facility] [place] Respitory Rate 2020-08-26 13:00:00 Memori al Per Systolic (mm Hg) 2020-08-26 13:00:00 Reagan rial [place] Diastolic (mm Hg) 2020-08-26 13:00:00 Mem orial Per Temperature Oral (F) 2020-08-26 09:00:00 98.4 F [facility] [place] Heart Rate 2020-08-26 09:00:00 [facility] [place] Respitory Rate 2020-08-26 09:00:00 Memori al [place] Systolic (mm Hg) 2020-08-26 09:00:00 Reagan rial Per Diastolic (mm Hg) 2020-08-26 09:00:00 Mem orial [place] Systolic (mm Hg) 2020-08-26 07:30:00 Reagan rial [place] Diastolic (mm Hg) 2020-08-26 07:30:00 Mem orial Per Heart Rate 2020-08-26 07:30:00 [facility] [place] Temperature Oral (F) 2020-08-26 05:00:00 100.6 F [facility] Per Respitory Rate 2020-08-26 05:00:00 Memori al Per Height 2020-08-23 04:01:00 190.5 cm [facility] [place] Weight 2020-08-23 04:01:00 [facility] [place] BMI Calculated 2020-08-23 04:01:00 Lubna Arredondo Procedures Procedure Date / Time Performing Clinician Source Performed LIPASE 2022-02-11 08:44:00 Dino [facility] MAGNESIUM 2022-02-11 08:44:00 Rodriguez Andres [facility] BASIC METABOLIC PANEL 2022-02-11 08:44:00 Dino [facility] (NA, K, CL, CO2, GLUCOSE, Medica l Branch BUN, CREATININE, CA) CBC WITH DIFF 2022-02-11 08:44:00 Dino [facility] LOW-DENSITY LIPOPROTEIN, 2022-02-10 15:01[facility] ([id number])(TOTAL 2022-02-10 15:01:00 Dino [facility] CHOLESTEROL, [facility] TRIGLYCERIDES, HDL) HB ECG ROUTINE & RHYTHM 2022-02-10 04:21:20 Chastity Giles [facility] STRIP [facility] CT ABDOMEN PELVIS W 2022-02-10 04:11:02 Chastity Giles [facility] CONTRAST Medical Branch COVID-19 (ID NOW RAPID 2022-02-10 03:58:00 Chastity Giles [facility] TESTING) Medical Branch LAB ONLY COVID 2022-02-10 03:58:00 Chastity Giles [facility] INTERPRETATION [facility] N-TERMINAL PRO-BNP 2022-02-10 03:28:00 Chastity Giles [facility] URINE DRUG (IMMUNOASSAY) 2022-02-10 03:28:00 Chastity Giles [facility] - COMPREHENSIVE DRUG Medical [facility] SCREEN W/O REFLEX LIPASE 2022-02-10 03:28:00 Chastity Giles [facility] COMP. METABOLIC PANEL 2022-02-10 03:28:00 Chastity Giles [facility] ([id number]) Medical Branch ETHANOL 2022-02-10 03:28:00 Chastity Giles [facility] CBC WITH DIFF 2022-02-10 03:28:00 Chastity Giles [facility] URINALYSIS 2022-02-10 03:28:00 Chastity Giles [facility] NOTICE OF PRIVACY 2022-02-10 02:09:50 Doctor Unassigned, [facility] CONSENT/REFUSAL FOR 2022-02-10 02:08:16 Doctor Unassigned, [facility] DIAGNOSIS AND TREATMENT [facility] Encounters Start End Encounter Admission Attending Care Care Encounter Source Date/Time Date/Time Type Type Clinicians Facility Department ID 2022-02-13 2022-02-13 Transition Dowd NIELSKaren [id number] [facility] 00:00:00 00:00:00 of Care Kaela DUNN [id number] ity of JOELLE [id number] [facility] [id number] [facility] 403 Branch 2022-02-09 2022-02-12 [facility] Chastity Giles [facility] [id number] Univers 21:40:00 16:33:00 Encounter Luz Marina Sun [id number] ity of Rodriguez Andres [id number] [facility] [id number] [facility] 081 Branch 2022-02-09 2022-02-12 Inpatient X DELMY COTERRELL FATEMEH [id number] Univers 21:40:00 16:33:00 RODRIGUEZ [facility] 2020-08-23 2020-08-26 Inpatient [facility] [id number] Memoria 03:35:00 18:15:[address] 2020-08-23 2020-08-26 Inpatient [facility] [id number] Memoria 03:35:00 18:15:[address] 2020-08-22 2020-08-26 Inpatient U SAKEVIN [facility] MED [id number] MHBL 22:35:00 13:15:00 JEFF 2020-08-22 2020-08-26 Outpatient Sakevin [facility] [id number] 22:35:00 13:15:00 [place] [id number] 2020-08-22 2020-08-26 [id number] 22:35:00 13:15:00 Jeff 74 Results Test Description Test Time Test Comments Results Result Comments Source MAGNESIUM 2022-02-11 14:38:24 Test Item Value Reference Range Interpretation Comme nts MAGNESIUM (test code = 5976078512) 1.6 mg/dL 1.7-2.4 L Lab Interpretation (test code = 36768-9) Abnormal [facility] Metabolic Panel (NA, K, CL, CO2, GLUCOSE, BUN, CREATININE, CA)2022-02-11 10:17:51 Test Item Value Reference Range Interpretation Comments NA (test code = 135 mmol/L 135-145 0179186927) K (test code = 3.4 mmol/L 3.5-5.0 L 2883595855) CL (test code = 101 mmol/L 98-108 2860979489) CO2 TOTAL (test code = 24 mmol/L 23-31 5163549246) AGAP (test code = 2-16 5597834100) BUN (test code = 8 mg/dL 7-23 0336333399) GLUCOSE (test code = 117 mg/dL 70-110 H 7852276259) CREATININE (test code = 0.57 mg/dL 0.60-1.25 L 8332994828) CALCIUM (test code = 8.0 mg/dL 8.6-10.6 L 9961032214) eGFR (test code = mL/min/1.73m2 7828081308) JOEY (test code = JOEY) Association of Glomerular Filtration Rate (GFR) and Staging of Kidney Disease* + --+ --+ ------+| GFR (mL/min/1.73 m2) ?| With Kidney Damage ?| ?Without Kidney Damage+ --------+ --------+ +| ?>90 ?| ?Stage one ?| ? Normal ?+ ---+ ---+ -------+| ?60-89 ?| ?Stage two ?| ? Decreased GFR ? + --+ --+ ------+| ?30-59 ?| ?Stage three ?| ? Stage three ? + --+ --+ ------+| ?15-29 ?| ?Stage four ? | ? Stage four ?+ ---+ ---+ -------+| ?<15 (or dialysis) ? ?| ?Stage five ? | ? Stage five ?+ ---+ ---+ -------+ *Each stage assumes the associated GFR level has been in effect for at least three months. ?Stages 1 to 5, with or without kidney disease, indicate chronic kidney disease. Notes: Determination of stages one and two (with eGFR >59mL/min/1.73 m2) requires estimation of kidney damage for at least three months as defined by structural or functional abnormalities of the kidney, manifested by either:Pathological abnormalities or Markers of kidney damage (including abnormalities in the composition of the blood or urine or abnormalities in imaging tests). Lab Interpretation Abnormal (test code = 43407-5) [facility]:16[facility]51 Test Item Value Reference Range Interpretation Comments LIPASE (test code = 9566578695) 760 U/L 0-220 H Lab Interpretation (test code = Abnormal 27844-1) [facility] with [id number] 10:04:30 Test Item Value Reference Range Interpretation Comments WBC (test code = See_Comment [Automated 1090-2) message] The sy stem which generated this result transmitted reference range : 4.20 - 10.70 10*3/?L. The reference range was not used to interpret this result as normal/abnormal . RBC (test code = See_Comment [Automated 099-8) message] The sy stem which generated this result transmitted reference range : 4.26 - 5.52 10*6/?L. The reference range was not used to interpret this result as normal/abnormal . HGB (test code = 13.2 g/dL 12.2-16.4 718-7) HCT (test code = 38.2 % 38.4-49.3 L 4544-3) MCV (test code = 88.6 fL 81.7-95.6 787-2) MCH (test code = 30.6 pg 26.1-32.7 785-6) MCHC (test code = 34.6 g/dL 31.2-35.0 786-4) RDW-SD (test code = 41.1 fL 38.5-51.6 05299-8) RDW-CV (test code = 12.6 % 12.1-15.4 788-0) PLT (test code = See_Comment [Automated 777-3) message] The sy stem which generated this result transmitted reference range : 150 - 328 10*3/ ?L. The reference r jose guadalupe was not used to interpret this result as normal/abnormal . MPV (test code = 8.8 fL 9.8-13.0 L 54238-7) NRBC/100 WBC (test See_Comment [Automat ed code = 2300643877) message] The system which generated this result transmitted reference range : 0.0 - 10.0 /100 WBCs. The refer ence range was not u sed to interpret th is result as normal/abnormal . NRBC x10^3 (test code <0.01 See_Comment [Auto mated = 0665733167) message] The s ystem which generated this result transmitted reference range : 10*3/?L. The reference range was not used to interpret this result as normal/abnormal . GRAN MAT (NEUT) % 67.4 % (test code = 770-8) IMM GRAN % (test code 0.30 % = 0179696336) LYMPH % (test code = 21.3 % 736-9) MONO % (test code = 6.1 % 5905-5) EOS % (test code = 4.5 % 713-8) BASO % (test code = 0.4 % 706-2) GRAN MAT x10^3(ANC) 5.00 10*3/uL 1.99-6.95 (test code = 2871082673) IMM GRAN x10^3 (test <0.03 0.00-0.06 code = 5708190828) LYMPH x10^3 (test code 1.58 10*3/uL 1.09-3.23 = 731-0) MONO x10^3 (test code 0.45 10*3/uL 0.36-1.02 = 742-7) EOS x10^3 (test code = 0.33 10*3/uL 0.06-0.53 711-2) BASO x10^3 (test code 0.03 10*3/uL 0.01-0.09 = 704-7) Lab Interpretation Abnormal (test code = 88153-1) [facility], [id number] 20:39:08 Test Item Value Reference Range Interpretation Comments dLDL Chol (test code = 58508-1) 116 mg/dL <130 Lab Interpretation (test code = Normal 87322-2) [facility] (92319)(TOTAL CHOLESTEROL, TRIGLYCERIDES, HDL)2022-02-10 15:44:01 Test Item Value Reference Range Interpretation Comments CHOL (test code = 226 mg/dL 120-200 H 0521387494) HDL (test code = 76 mg/dL >40 8370616971) HDLC RATIO (test code = See_Comment [Au tomated message] 1143271179) The system [employer] generated this result transmit mary carmen reference range : <=5.0. The refe rence range was not u sed to interpret th is result as normal/abnormal . TRIG (test code = 139 mg/dL 30-170 6373827255) LDL CHOL (test code = 122 mg/dL See_Comment [Auto mated message] 93613-4) The system [employer] generated this result transmit mary carmen reference range : <=160. The refe rence range was not u sed to interpret th is result as normal/abnormal . VLDL (test code = 28 mg/dL 5-60 2223159339) Lab Interpretation (test Abnormal code = 77551-7) [facility] 05:05:53 Test Item Value Reference Range Interpretation Comments ALCOHOL (test code = 280 mg/dL 6234586648) JOEY (test code = JOEY) <10 [id number] Toxic>100 Depression of GLASS TINTER>400 Fatalities Reported [facility] [id number] 04:12:13 Test Item Value Reference Range Interpretation Comments NT-proBNP (test code 441 pg/mL See_Comment H [Autom ated = 7147894639) message] The system which generated this result transmitted reference range : <=125. The reference range was not used to interpret this result as normal/abnormal . JOEY (test code = JOEY) Biotin has been reported to cause a negative bias, interpret results relative to patient's use of biotin. Lab Interpretation Abnormal (test code = 99302-9) [facility] (94760)2022-02-10 03:56:30 Test Item Value Reference Range Interpretation Comments NA (test code = 137 mmol/L 135-145 9405009256) K (test code = 5.4 mmol/L 3.5-5.0 H 8709174870) CL (test code = 101 mmol/L 98-108 2298247405) CO2 TOTAL (test code = 25 mmol/L 23-31 8585564923) AGAP (test code = 2-16 6331221093) BUN (test code = 21 mg/dL 7-23 9327264404) GLUCOSE (test code = 120 mg/dL 70-110 H 3858643036) CREATININE (test code = 0.93 mg/dL 0.60-1.25 4689657301) TOTAL BILI (test code = 0.7 mg/dL 0.1-1.0 7600937306) CALCIUM (test code = 8.8 mg/dL 8.6-10.6 0684865748) T PROTEIN (test code = 7.5 g/dL 6.3-8.2 5148235974) ALBUMIN (test code = 4.2 g/dL 3.5-5.0 6021700383) ALK PHOS (test code = 86 U/L 34-122 2660583780) ALTv (test code = 75 U/L 5-50 H 1742-6) AST(SGOT) (test code = 93 U/L 13-40 H 8276208140) eGFR (test code = mL/min/1.73m2 3395038918) JOEY (test code = JOEY) Association of Glomerular Filtration Rate (GFR) and Staging of Kidney Disease* + --+ --+ ------+| GFR (mL/min/1.73 m2) ?| With Kidney Damage ?| ?Without Kidney Damage+ --------+ --------+ +| ?>90 ?| ?Stage one ?| ? Normal ?+ ---+ ---+ -------+| ?60-89 ?| ?Stage two ?| ? Decreased GFR ? + --+ --+ ------+| ?30-59 ?| ?Stage three ?| ? Stage three ? + --+ --+ ------+| ?15-29 ?| ?Stage four ? | ? Stage four ?+ ---+ ---+ -------+| ?<15 (or dialysis) ? ?| ?Stage five ? | ? Stage five ?+ ---+ ---+ -------+ *Each stage assumes the associated GFR level has been in effect for at least three months. ?Stages 1 to 5, with or without kidney disease, indicate chronic kidney disease. Notes: Determination of stages one and two (with eGFR >59mL/min/1.73 m2) requires estimation of kidney damage for at least three months as defined by structural or functional abnormalities of the kidney, manifested by either:Pathological abnormalities or Markers of kidney damage (including abnormalities in the composition of the blood or urine or abnormalities in imaging tests). Lab Interpretation Abnormal (test code = 09819-2) [facility] 03:56:30 Test Item Value Reference Range Interpretation Comments LIPASE (test code = 4045566167) 335 U/L 0-220 H Lab Interpretation (test code = Abnormal 54903-2) [facility] WITH [id number] 03:40:28 Test Item Value Reference Range Interpretation Comments WBC (test code = See_Comment [Automated 0390-2) message] The sy stem which generated this result transmitted reference range : 4.20 - 10.70 10*3/?L. The reference range was not used to interpret this result as normal/abnormal . RBC (test code = See_Comment [Automated 469-8) message] The sy stem which generated this result transmitted reference range : 4.26 - 5.52 10*6/?L. The reference range was not used to interpret this result as normal/abnormal . HGB (test code = 15.6 g/dL 12.2-16.4 718-7) HCT (test code = 45.7 % 38.4-49.3 4544-3) MCV (test code = 88.2 fL 81.7-95.6 787-2) MCH (test code = 30.1 pg 26.1-32.7 785-6) MCHC (test code = 34.1 g/dL 31.2-35.0 786-4) RDW-SD (test code = 42.0 fL 38.5-51.6 58814-8) RDW-CV (test code = 13.1 % 12.1-15.4 788-0) PLT (test code = See_Comment [Automated 777-3) message] The sy stem which generated this result transmitted reference range : 150 - 328 10*3/ ?L. The reference r jose guadalupe was not used to interpret this result as normal/abnormal . MPV (test code = 8.4 fL 9.8-13.0 L 57995-6) NRBC/100 WBC (test See_Comment [Automat ed code = 9039353895) message] The system which generated this result transmitted reference range : 0.0 - 10.0 /100 WBCs. The refer ence range was not u sed to interpret th is result as normal/abnormal . NRBC x10^3 (test code <0.01 See_Comment [Auto mated = 6533453783) message] The s ystem which generated this result transmitted reference range : 10*3/?L. The reference range was not used to interpret this result as normal/abnormal . GRAN MAT (NEUT) % 60.6 % (test code = 770-8) IMM GRAN % (test code 0.50 % = 7490434452) LYMPH % (test code = 30.8 % 736-9) MONO % (test code = 6.0 % 5905-5) EOS % (test code = 1.3 % 713-8) BASO % (test code = 0.8 % 706-2) GRAN MAT x10^3(ANC) 5.09 10*3/uL 1.99-6.95 (test code = 7211637734) IMM GRAN x10^3 (test 0.04 10*3/uL 0.00-0.06 code = 4473771990) LYMPH x10^3 (test code 2.59 10*3/uL 1.09-3.23 = 731-0) MONO x10^3 (test code 0.50 10*3/uL 0.36-1.02 = 742-7) EOS x10^3 (test code = 0.11 10*3/uL 0.06-0.53 711-2) BASO x10^3 (test code 0.07 10*3/uL 0.01-0.09 = 704-7) Lab Interpretation Abnormal (test code = 43917-8) [facility] CenterCHEM [id number] 09:37:00 Test Item Value Reference Range Interpretation Comments Glucose Lvl (test code = Glucose Lvl) 106 70-99 [place] [address]-10-04 09:37:00 Test Item Value Reference Range Interpretation Comments BUN (test code = BUN) 8 7-22 [place] [address]-10-04 09:37:00 Test Item Value Reference Range Interpretation Comments Creatinine Lvl (test code = Creatinine 0.65 0.50-1.40 Lvl) [place] [id number] 09:37:00 Test Item Value Reference Range Interpretation Comments Sodium Lvl (test code = Sodium Lvl) 137 135-145 [place] [address]-10-04 09:37:00 Test Item Value Reference Range Interpretation Comments Potassium Lvl (test code = Potassium 3.1 3.5-5.1 Lvl) [place] [address]-10-04 09:37:00 Test Item Value Reference Range Interpretation Comments Chloride Lvl (test code = Chloride Lvl) 102 95-109 [place] [address]-10-04 09:37:00 Test Item Value Reference Range Interpretation Comments CO2 (test code = CO2) 26 24-32 [place] [address]-10-04 09:37:00 Test Item Value Reference Range Interpretation Comments Calcium Lvl (test code = Calcium Lvl) 8.2 8.5-10.5 [place] [address]-10-04 09:37:00 Test Item Value Reference Range Interpretation Comments Total Protein (test code = Total 6.4 6.4-8.4 Protein) [place] [address]-10-04 09:37:00 Test Item Value Reference Range Interpretation Comments Albumin Lvl (test code = Albumin Lvl) 2.3 3.5-5.0 [place] [address]-10-04 09:37:00 Test Item Value Reference Range Interpretation Comments ALT (test code = ALT) 76 See_Comment [Auto mated message] The system which ge nerated this result transmit mary carmen reference range : <=65. The reference range was not used to interpr et this result as casey l/abnormal. [place] [address]-10-04 09:37:00 Test Item Value Reference Range Interpretation Comments AST (test code = AST) 86 See_Comment [Auto mated message] The system which ge nerated this result transmit mary carmen reference range : <=37. The reference range was not used to interpr et this result as casey l/abnormal. [facility] [id number] 09:37:00 Test Item Value Reference Range Interpretation Comments Alk Phos (test code = Alk Phos) 85 39-[address] [facility] [id number] 09:37:00 Test Item Value Reference Range Interpretation Comments Bili Total (test code = Bili Total) 0.8 0.2-1.[address] [facility] [id number] 09:37:00 Test Item Value Reference Range Interpretation Comments AGAP (test code = AGAP) 12.1 10.0-20.[address] [facility] [id number] 09:37:00 Test Item Value Reference Range Interpretation Comments B/C Ratio (test code = B/C Ratio) 12 1 6-[address] [facility] [id number] 09:37:00 Test Item Value Reference Range Interpretation Comments Globulin (test code = Globulin) 4.1 2.7-4.[address] [facility] [id number] 09:37:00 Test Item Value Reference Range Interpretation Comments A/G Ratio (test code = A/G Ratio) 0.6 1 0.7-1.6 [facility] [id number] 09:37:00 Test Item Value Reference Range Interpretation Comments eGFR (test code = eGFR) 131 [facility] [id number] 09:37:00 Test Item Value Reference Range Interpretation Comments Segs (test code = Segs) 74.5 45.0-75.[address] [facility] [address] [id number] 09:37:00 Test Item Value Reference Range Interpretation Comments Lymphocytes (test code = Lymphocytes) 12.0 20.0-40.[address] [facility] [id number] 09:37:00 Test Item Value Reference Range Interpretation Comments Monocytes (test code = Monocytes) 11.7 2.0-12.[address] [facility] HospitalDmdfxqgTUOQPPJJAT7157-85-55 09:37:00 Test Item Value Reference Range Interpretation Comments Eosinophils (test code = 1.6 See_Comment [A utomated message] The Eosinophils) system which ge nerated this result tra nsmitted reference range : <=4.0. The reference r jose guadalupe was not used to int erpret this result as normal/abnormal . [facility]neyZhsnpaqLRQBTMBIRK8224-99-64 09:37:00 Test Item Value Reference Range Interpretation Comments Basophils (test code = 0.2 See_Comment [Aut omated message] The Basophils) system which ge nerated this result tra nsmitted reference range : <=1.0. The reference r jose guadalupe was not used to int erpret this result as normal/abnormal . [facility]neyCeftqimJZLHVOCHCE5648-25-96 09:37:00 Test Item Value Reference Range Interpretation Comments Neutrophils # (test code = Neutrophils 9.7 1.5-8.1 #) [facility] McKinneyIaedxoaVAAQVQYCBH5806-44-72 09:37:00 Test Item Value Reference Range Interpretation Comments Lymphocytes # (test code = Lymphocytes 1.6 1.0-5.5 #) [facility] McKinneyPfahludAGBFFIZRFR0989-04-26 09:37:00 Test Item Value Reference Range Interpretation Comments Monocytes # (test code 1.5 See_Comment [Aut omated message] The = Monocytes #) system which generated this result tra nsmitted reference range : <=0.8. The reference r jose guadalupe was not used to int erpret this result as normal/abnormal . [facility] McKinneyRiwbpmcGNZHNPECIT8957-20-32 09:37:00 Test Item Value Reference Range Interpretation Comments Eosinophils # (test code 0.2 See_Comment [A utomated message] The = Eosinophils #) system whic h generated this result tra nsmitted reference range : <=0.5. The reference r jose guadalupe was not used to int erpret this result as normal/abnormal . [facility] McKinneyNzsmchwLXEFZLQIXU5553-84-37 09:37:00 Test Item Value Reference Range Interpretation Comments WBC (test code = WBC) 13.0 3.7-10.4 [place] 801640-10-04 09:37:00 Test Item Value Reference Range Interpretation Comments RBC (test code = RBC) 3.37 4.70-6.10 [facility] McKinneyBzbikwiJFPABPSMJP3690-32-24 09:37:00 Test Item Value Reference Range Interpretation Comments Hgb (test code = Hgb) 11.5 14.0-18.0 [place] 801640-10-04 09:37:00 Test Item Value Reference Range Interpretation Comments Hct (test code = Hct) 33.6 42.0-54.[address] [facility] HospitalMntwygoGGXKFNMUHS0493-17-92 09:37:00 Test Item Value Reference Range Interpretation Comments MCV (test code = MCV) 99.7 80.0-94.[address] [facility] HospitalEkxwtbyBXJCCNXWPU9464-13-92 09:37:00 Test Item Value Reference Range Interpretation Comments MCH (test code = MCH) 34.2 pg 27.0-31.0 [facility] VkfccueHBAVNELDCD7690-96-28 09:37:00 Test Item Value Reference Range Interpretation Comments MCHC (test code = MCHC) 34.3 32.0-36.0 [facility] YrnogjzGSFRVDHXXD4860-61-28 09:37:00 Test Item Value Reference Range Interpretation Comments RDW (test code = RDW) 13.2 11.5-14.[address] [facility] HospitalEabrzdgGONCUHYFGA0848-74-63 09:37:00 Test Item Value Reference Range Interpretation Comments Platelet (test code = Platelet) 175 133-[address] [facility] HospitalAlrhqmrLPDFJZHAYA5567-62-28 09:37:00 Test Item Value Reference Range Interpretation Comments MPV (test code = MPV) 7.2 7.4-10.4 [facility]annCHE[facility] BXRUH8200-11-96 09:37:97261Hopufrru HermannCHEM PANEL 2020-08-26 09:37:008[facility]annCHEM BIQZG1118-16-41 09:37:000.65[facility]annCHEM FRQCN3173-32-03 09:37:98322Xdcngykl HermannCHEM LBEHM1671-82-18 09:37:003.1[facility]annCHEM OMAMK7979-22-41 09:37:12121Wlsutqrb HermannCHEM WFSRP2500-27-93 09:37:0026[facility]annCHEM JFBLA6376-62-62 09:37:008.2 [facility]annCHE[facility] JOAPZ5669-40-40 09:37:006.4[facility]annCHEM PANEL 2020-08-26 09:37:002.3[facility]annCHEM TAKBY7142-99-11 09:37:0076[facility]annCHEM JLMZQ1074-13-85 09:37:0086[facility]annCHEM VMVFO6425-79-27 09:37:0085[facility]annCHEM SSNXY7593-76-31 09:37:000.8[facility]annCHE[facility] YHUPW6521-62-31 09:37:0012.1[facility]annCHEM ZOGJI8691-71-75 09:37:00 Test Item Value Reference Range Interpretation Comments B/C Ratio (test code = B/C Ratio) 12 1 6-25 [facility]annCHE[facility] WEOCE7782-84-18 09:37:004.1[facility]annCHEM PANEL 2020-08-26 09:37:00 Test Item Value Reference Range Interpretation Comments A/G Ratio (test code = A/G Ratio) 0.6 1 0.7-1.6 [facility]annCHE[facility] TDFCX6348-19-59 09:37:82595Qislihxc HermannHEMATOLOGY 2020-08-26 09:37:0074.5[facility] IlevagiVHRZMPUKTZ9783-21-43 09:37:0012.0[facility] YittjdpYJMLAHTDKV5719-40-74 09:37:0011.7[facility] ZbtgglzUEVWLIHLPV8761-40-49 09:37:001.6[facility] FdwkyevXNBORHKCPP3614-62-63 09:37:000.2[facility] Per LKPPJWOOBX4664-74-35 09:37:009.7[facility] LbnnovePEJQRCHJVZ0752-95-33 09:37:001.6 [facility] NvjpdgiKRUYRUQSEW7541-02-07 09:37:001.5[facility] HermannHEMATOLOGY 2020-08-26 09:37:000.2[facility] RphyioaAYLFNAZOLJ2979-17-85 09:37:0013.0[facility] FkblgjtWSXGPKTJNY8406-77-69 09:37:003.37[facility] UjewdhbJRRYGMFRCC4583-46-67 09:37:0011.5[facility] KagzhxjZUEVFPFJMY6488-55-36 09:37:0033.6[facility] Per SMSGFCNSZE3811-28-05 09:37:0099.7[facility] HsocvfwCLJBEAOMCT7403-97-11 09:37:00 Test Item Value Reference Range Interpretation Comments MCH (test code = MCH) 34.2 pg 27.0-31.0 [facility] McKinneyZiahnwiINLZVFLJAJ5643-58-88 09:37:0034.[address]AT[facility] 2020-08-26 09:37:0013.2[facility] UxrmwxvADJTDERHXF1837-44-18 09:37:72535Tklquoiq VlkyygcYCDCZYKQBX1897-87-80 09:37:007.2[facility] 09:35:00 Test Item Value Reference Range Interpretation Comments BUN (test code = BUN) 8 7-22 [facility]2020-10-03 09:35:00 Test Item Value Reference Range Interpretation Comments Creatinine Lvl (test code = Creatinine 0.64 0.50-1.40 Lvl) [facility]2020-10-03 09:35:00 Test Item Value Reference Range Interpretation Comments Sodium Lvl (test code = Sodium Lvl) 134 135-145 [place] 985520-10-03 09:35:00 Test Item Value Reference Range Interpretation Comments Potassium Lvl (test code = Potassium 3.4 3.5-5.1 Lvl) [facility]2020-10-03 09:35:00 Test Item Value Reference Range Interpretation Comments Chloride Lvl (test code = Chloride Lvl) 100 95-109 [facility]2020-10-03 09:35:00 Test Item Value Reference Range Interpretation Comments CO2 (test code = CO2) 25 24-32 [facility]2020-10-03 09:35:00 Test Item Value Reference Range Interpretation Comments Calcium Lvl (test code = Calcium Lvl) 7.9 8.5-10.5 [facility]2020-10-03 09:35:00 Test Item Value Reference Range Interpretation Comments Total Protein (test code = Total 6.7 6.4-8.4 Protein) [facility]2020-10-03 09:35:00 Test Item Value Reference Range Interpretation Comments Albumin Lvl (test code = Albumin Lvl) 2.5 3.5-5.0 [facility]2020-10-03 09:35:00 Test Item Value Reference Range Interpretation Comments ALT (test code = ALT) 61 See_Comment [Auto mated message] The system which ge nerated this result transmit mary carmen reference range : <=65. The reference range was not used to interpr et this result as casey l/abnormal. [facility] UFNOJ6939-08-60 09:35:00 Test Item Value Reference Range Interpretation Comments AST (test code = AST) 59 See_Comment [Auto mated message] The system which ge nerated this result transmit mary carmen reference range : <=37. The reference range was not used to interpr et this result as casey l/abnormal. [facility] CYIVP5724-41-40 09:35:00 Test Item Value Reference Range Interpretation Comments Alk Phos (test code = Alk Phos) 81 39-[address] [facility]Education[facility]High[facility] QFQVB4450-36-53 09:35:00 Test Item Value Reference Range Interpretation Comments Bili Total (test code = Bili Total) 1.0 0.2-1.3 [facility] IICFB9592-00-09 09:35:00 Test Item Value Reference Range Interpretation Comments AGAP (test code = AGAP) 12.4 10.0-20.0 [facility] NVSQC7441-86-48 09:35:00 Test Item Value Reference Range Interpretation Comments B/C Ratio (test code = B/C Ratio) 12 1 6-[address] [facility] RLLKU8672-84-63 09:35:00 Test Item Value Reference Range Interpretation Comments Globulin (test code = Globulin) 4.2 2.7-4.2 [facility] YLBUT2275-52-09 09:35:00 Test Item Value Reference Range Interpretation Comments A/G Ratio (test code = A/G Ratio) 0.6 1 0.7-1.6 [facility] QCBQW0571-61-09 09:35:00 Test Item Value Reference Range Interpretation Comments eGFR (test code = eGFR) 132 [facility] SystemAmmolsuKUYCSMBCCZ5342-86-75 09:35:00 Test Item Value Reference Range Interpretation Comments WBC (test code = WBC) 13.6 3.7-10.4 [place] [address]-10-03 09:35:00 Test Item Value Reference Range Interpretation Comments RBC (test code = RBC) 3.46 4.70-6.10 [facility] SystemImlfmhtPDYEKAFIUW4379-24-10 09:35:00 Test Item Value Reference Range Interpretation Comments Hgb (test code = Hgb) 12.1 14.0-18.0 [facility]neyLvytxokPQFXROWWZR1192-71-07 09:35:00 Test Item Value Reference Range Interpretation Comments Hct (test code = Hct) 34.4 42.0-54.0 [facility] McKinneyQpfgbhwUGNGKYNCBA8806-33-90 09:35:00 Test Item Value Reference Range Interpretation Comments MCV (test code = MCV) 99.3 80.0-94.0 [facility] McKinneyNtbfxsgQDPNELTITS3973-48-10 09:35:00 Test Item Value Reference Range Interpretation Comments MCH (test code = MCH) 34.9 pg 27.0-31.0 [facility] McKinneyNxxgfvcZDFIYCFSPJ1753-85-47 09:35:00 Test Item Value Reference Range Interpretation Comments MCHC (test code = MCHC) 35.1 32.0-36.0 [facility] McKinneyBafnmmtTPRGQWTUMK0863-71-32 09:35:00 Test Item Value Reference Range Interpretation Comments RDW (test code = RDW) 12.9 11.5-14.5 [facility] McKinneyJqezwzrTKGGHAPXIW0705-36-10 09:35:00 Test Item Value Reference Range Interpretation Comments Platelet (test code = Platelet) 143 133-450 [facility] McKinneyVefvzblUHUQNVYIHW0103-88-05 09:35:00 Test Item Value Reference Range Interpretation Comments MPV (test code = MPV) 7.4 7.4-10.4 [facility] McKinneyWrxvtupOXZAJQCWJK1632-19-06 09:35:00 Test Item Value Reference Range Interpretation Comments Segs (test code = Segs) 81.3 45.0-75.0 [facility] McKinneyBulxfsjBIYCPDFAMW4768-39-15 09:35:00 Test Item Value Reference Range Interpretation Comments Lymphocytes (test code = Lymphocytes) 8.6 20.0-40.0 [place] [address]-10-03 09:35:00 Test Item Value Reference Range Interpretation Comments Monocytes (test code = Monocytes) 9.7 2.0-12.0 [place] [address]-10-03 09:35:00 Test Item Value Reference Range Interpretation Comments Eosinophils (test code = 0.2 See_Comment [A utomated message] The Eosinophils) system which ge nerated this result tra nsmitted reference range : <=4.0. The reference r jose guadalupe was not used to int erpret this result as normal/abnormal . [facility] McKinneyKypoehyQDABJCKIZJ0865-80-96 09:35:00 Test Item Value Reference Range Interpretation Comments Basophils (test code = 0.2 See_Comment [Aut omated message] The Basophils) system which ge nerated this result tra nsmitted reference range : <=1.0. The reference r jose guadalupe was not used to int erpret this result as normal/abnormal . [facility] McKinneyQmjnuwkASMRBRVEQV3008-89-41 09:35:00 Test Item Value Reference Range Interpretation Comments Neutrophils # (test code = Neutrophils 11.1 1.5-8.1 #) [facility] McKinneyKnjuuepXGRNAMNNMU3686-20-37 09:35:00 Test Item Value Reference Range Interpretation Comments Lymphocytes # (test code = Lymphocytes 1.2 1.0-5.5 #) [facility] McKinneyMdffyfyRYEDFOWMNV9223-14-40 09:35:00 Test Item Value Reference Range Interpretation Comments Monocytes # (test code 1.3 See_Comment [Aut omated message] The = Monocytes #) system which generated this result tra nsmitted reference range : <=0.8. The reference r jose guadalupe was not used to int erpret this result as normal/abnormal . [facility] HospitalannCHEM MRLEW7116-33-11 09:35:00 Test Item Value Reference Range Interpretation Comments Glucose Lvl (test code = Glucose Lvl) 97 70-[address] [facility] HospitalannCHEM RNZHK9446-82-02 09:35:000.64[facility]annCHEM PANEL 2020-08-25 09:35:51469Gsqpngqg HermannCHEM MSMXA4832-30-65 09:35:003.4[facility] HermannCHEM YEZZO4061-31-18 09:35:0097[facility]annCHEM FXEZF4533-02-46 09:35:008[facility]annCHEM XQHUH9857-35-21 09:35:86499Srkjmlrp HermannCHEM BYMMU0107-96-94 09:35:0025[facility]annCHEM CWFJW8308-73-78 09:35:007.9 [facility]annCHE[facility] CBZGT2889-01-86 09:35:006.7[facility] HermannCHEM PANEL 2020-08-25 09:35:002.5[facility]annCHEM WYFGC5087-09-35 09:35:0061[facility]annCHEM IBWBZ0936-99-62 09:35:0059[facility]annCHEM IJIHD3896-30-55 09:35:0081[facility]annCHEM KGICI0180-69-05 09:35:001.0[facility]annCHEM HPDMA4869-31-38 09:35:0012.4[facility]annCHEM KHIZH6270-32-11 09:35:00 Test Item Value Reference Range Interpretation Comments B/C Ratio (test code = B/C Ratio) 12 1 6-25 [facility]annCHEM XZBJZ3881-97-44 09:35:004.2[facility] HermannCHEM PANEL 2020-08-25 09:35:00 Test Item Value Reference Range Interpretation Comments A/G Ratio (test code = A/G Ratio) 0.6 1 0.7-1.6 [facility]annCHEM SNVVX9328-60-99 09:35:46541Whvpeghh HermannHEMATOLOGY 2020-08-25 09:35:0013.6[facility] LjlnwmlTUOLFOEUQS1721-84-60 09:35:003.46[facility] LuodbnqRKAZRYHSKY0091-25-63 09:35:0012.1[facility] NsbfxgkADAYDBWIPB4407-30-63 09:35:0034.4[facility] YqfdqttMNVQCSXSUJ0394-58-91 09:35:0099.3[facility] Per JJIEATQGAZ2227-73-16 09:35:00 Test Item Value Reference Range Interpretation Comments MCH (test code = MCH) 34.9 pg 27.0-31.0 [facility] OfwzxhaIPZELERGWW1802-37-29 09:35:0035.1[facility] HermannHEMATOLOGY 2020-08-25 09:35:0012.9[facility] ByuxqppSTFEINVVQV4450-99-93 09:35:31361Hgtwtndl QnbcuboDAJONFNVEM9893-74-40 09:35:007.4[facility] TznxglwOQVSTKHAPX2760-01-12 09:35:0081.3[facility] MlhmbjaFNCSPFHGIM8208-21-68 09:35:008.6[facility] [place] LLJZZUFQNP4331-18-20 09:35:009.7[facility] MwzjpqvDGRRGIFZPU0212-98-18 09:35:000.2 [facility]neyIacdjajOQVAVJFOYA5850-63-15 09:[facility]000.2[facility]25 09:35:0011.1[facility] HospitalNkiuwdjLUXYJZPLSJ3936-18-88 09:35:001.2Mem[facility] HospitalSurovacWXTWNOTGXX7933-69-71 09:35:001.3[facility]-02 09:44:00 Test Item Value Reference Range Interpretation Comments Glucose Lvl (test code = Glucose Lvl) 122 70-99 [facility]2020-10-02 09:44:00 Test Item Value Reference Range Interpretation Comments BUN (test code = BUN) 11 7-22 [facility]2020-10-02 09:44:00 Test Item Value Reference Range Interpretation Comments Creatinine Lvl (test code = Creatinine 0.80 0.50-1.40 Lvl) [facility]2020-10-02 09:44:00 Test Item Value Reference Range Interpretation Comments Sodium Lvl (test code = Sodium Lvl) 137 135-145 [facility]2020-10-02 09:44:00 Test Item Value Reference Range Interpretation Comments Potassium Lvl (test code = Potassium 3.4 3.5-5.1 Lvl) [facility]2020-10-02 09:44:00 Test Item Value Reference Range Interpretation Comments Chloride Lvl (test code = Chloride Lvl) 103 95-109 [facility]2020-10-02 09:44:00 Test Item Value Reference Range Interpretation Comments CO2 (test code = CO2) 24 24-32 [facility]2020-10-02 09:44:00 Test Item Value Reference Range Interpretation Comments Calcium Lvl (test code = Calcium Lvl) 8.0 8.5-10.5 [place] 985520-10-02 09:44:00 Test Item Value Reference Range Interpretation Comments Total Protein (test code = Total 6.5 6.4-8.4 Protein) [facility]2020-10-02 09:44:00 Test Item Value Reference Range Interpretation Comments Albumin Lvl (test code = Albumin Lvl) 2.7 3.5-5.0 [facility]2020-10-02 09:44:00 Test Item Value Reference Range Interpretation Comments ALT (test code = ALT) 76 See_Comment [Auto mated message] The system which ge nerated this result transmit mary carmen reference range : <=65. The reference range was not used to interpr et this result as casey l/abnormal. [facility]2020-10-02 09:44:00 Test Item Value Reference Range Interpretation Comments AST (test code = AST) 68 See_Comment [Auto mated message] The system which ge nerated this result transmit mary carmen reference range : <=37. The reference range was not used to interpr et this result as casey l/abnormal. [employer] KGUOI2021-92-66 09:44:00 Test Item Value Reference Range Interpretation Comments Alk Phos (test code = Alk Phos) 68 39-136 [facility] [employer] JEBTR7153-58-26 09:44:00 Test Item Value Reference Range Interpretation Comments Bili Total (test code = Bili Total) 1.2 0.2-1.3 [facility] [employer] YNMLS4260-54-60 09:44:00 Test Item Value Reference Range Interpretation Comments AGAP (test code = AGAP) 13.4 10.0-20.0 [facility] [employer] GVPGE6123-26-69 09:44:00 Test Item Value Reference Range Interpretation Comments B/C Ratio (test code = B/C Ratio) 14 1 6-25 [facility] [employer] CXTMH6114-01-11 09:44:00 Test Item Value Reference Range Interpretation Comments Globulin (test code = Globulin) 3.8 2.7-4.2 [facility] [employer]2020-10-02 09:44:00 Test Item Value Reference Range Interpretation Comments A/G Ratio (test code = A/G Ratio) 0.7 1 0.7-1.6 [facility] [employer] XPIOC7475-25-18 09:44:00 Test Item Value Reference Range Interpretation Comments eGFR (test code = eGFR) 120 [facility] SxeovuiJBZZOOSVRD8238-21-96 09:44:00 Test Item Value Reference Range Interpretation Comments Segs (test code = Segs) 87.2 45.0-75.0 [facility] OcicjiaUXYDRCIZCM0939-73-80 09:44:00 Test Item Value Reference Range Interpretation Comments Lymphocytes (test code = Lymphocytes) 4.9 20.0-40.0 [place] 801640-10-02 09:44:00 Test Item Value Reference Range Interpretation Comments Monocytes (test code = Monocytes) 7.7 2.0-12.0 [facility]neyQuewckyABDKXJXOFM9047-28-21 09:44:00 Test Item Value Reference Range Interpretation Comments Basophils (test code = 0.2 See_Comment [Aut omated message] The Basophils) system which ge nerated this result tra nsmitted reference range : <=1.0. The reference r jose guadalupe was not used to int erpret this result as normal/abnormal . [facility] McKinneyMpyynpwMCQOMSCRCJ3415-95-04 09:44:00 Test Item Value Reference Range Interpretation Comments Neutrophils # (test code = Neutrophils 16.2 1.5-8.1 #) [facility] McKinneyUjzhgbmSGJKLQSCMM8952-10-94 09:44:00 Test Item Value Reference Range Interpretation Comments Lymphocytes # (test code = Lymphocytes 0.9 1.0-5.5 #) [facility] McKinneyMcvhrnlEVZVEJATTO6537-74-76 09:44:00 Test Item Value Reference Range Interpretation Comments Monocytes # (test code 1.4 See_Comment [Aut omated message] The = Monocytes #) system which generated this result tra nsmitted reference range : <=0.8. The reference r jose guadalupe was not used to int erpret this result as normal/abnormal . [facility] McKinneyXfyrayuZNBBRKYXFL3390-89-91 09:44:00 Test Item Value Reference Range Interpretation Comments WBC (test code = WBC) 18.6 3.7-10.4 [place] 801640-10-02 09:44:00 Test Item Value Reference Range Interpretation Comments RBC (test code = RBC) 3.91 4.70-6.10 [place] [address]-10-02 09:44:00 Test Item Value Reference Range Interpretation Comments Hgb (test code = Hgb) 13.5 14.0-18.0 [place] [address]-10-02 09:44:00 Test Item Value Reference Range Interpretation Comments Hct (test code = Hct) 38.7 42.0-54.0 [place] [address]-10-02 09:44:00 Test Item Value Reference Range Interpretation Comments MCV (test code = MCV) 99.0 80.0-94.0 [place] [address]-10-02 09:44:00 Test Item Value Reference Range Interpretation Comments MCH (test code = MCH) 34.5 pg 27.0-31.0 [facility] RgeqmvbBAJIOWJCJO4142-94-80 09:44:00 Test Item Value Reference Range Interpretation Comments MCHC (test code = MCHC) 34.9 32.0-36.0 [facility] VoadituWXYJDMOADL0988-99-96 09:44:00 Test Item Value Reference Range Interpretation Comments RDW (test code = RDW) 13.5 11.5-14.5 [facility] ZymmwaiJPNOUOQMPP0930-01-33 09:44:00 Test Item Value Reference Range Interpretation Comments Platelet (test code = Platelet) 155 133-450 [facility] ZoaqmcsTIRHTCGWXV6172-85-95 09:44:00 Test Item Value Reference Range Interpretation Comments MPV (test code = MPV) 7.5 7.4-10.4 [facility] ZeemwgrGECXIE1850-15-37 09:44:00 Test Item Value Reference Range Interpretation Comments Trig (test code = Trig) 320 [facility] CotiplgYJGXAXNJIS2810-08-04 09:44:00 Test Item Value Reference Range Interpretation Comments MCH (test code = MCH) 34.5 pg 27.0-31.0 [facility] GomiwqfZZPUIUXMHU6120-92-77 09:44:0034.9[facility] HermannHEMATOLOGY 2020-08-24 09:44:0013.5[facility] ZaxglpuJTFFYLSAIX2359-92-47 09:44:21874Knttsmwv VbvdymdJKEGQLYFXH6387-78-71 09:44:007.5[facility] ZlhqaisPQDVKH6216-18-98 09:44:00 320[facility] HermannCHEM BRLGL0311-66-79 09:44:25794Kpbrvlbv HermannCHEM PANEL 2020-08-24 09:44:0011[facility] HermannCHEM EVIUE8513-01-62 09:44:000.80[facility] HermannCHEM KIWSI2311-35-14 09:44:73245Bwuontjw HermannCHEM UQDEG0202-32-20 09:44:003.4[facility] HermannCHEM BDYDZ7679-60-33 09:44:44984Idznssdq HermannCHEM AZXEZ6884-86-04 09:44:0024[facility] HermannCHEM IPPPZ2927-59-41 09:44:008.0 [facility]annCHEM JRVUS2881-51-08 09:44:006.5[facility] HermannCHEM PANEL 2020-08-24 09:44:002.7[facility] HermannCHEM BGANN8584-40-28 09:44:0076[facility] HermannCHEM KEYFX6713-56-82 09:44:0068[facility] HermannCHEM QYBTV4971-18-51 09:44:0068[facility] HermannCHEM USDYB3394-96-22 09:44:001.2[facility] HermannCHEM OOASH4162-96-28 09:44:0013.4[facility] HermannCHEM BMXXY6724-94-61 09:44:00 Test Item Value Reference Range Interpretation Comments B/C Ratio (test code = B/C Ratio) 14 1 6-25 [facility]annCHEM BPIWG5125-43-11 09:44:003.8[facility] HermannCHEM PANEL 2020-08-24 09:44:00 Test Item Value Reference Range Interpretation Comments A/G Ratio (test code = A/G Ratio) 0.7 1 0.7-1.6 [facility]annCHEM LHISY6514-70-55 09:44:13891Gxohxfxz HermannHEMATOLOGY 2020-08-24 09:44:0087.2[facility] RvwzrbiDRHATDAXWL8194-86-37 09:44:004.9[facility] SoptrpySVRLDNZOES8739-55-18 09:44:007.7[facility] UykagbpBWUBNXZONH0161-40-67 09:44:000.2[facility] WboltcpNEIQLBMWPZ9263-94-64 09:44:0016.2[facility] [place] WURNCFRVQW4448-83-70 09:44:000.9[facility] IonlxirUCRPYOKCXT0720-58-15 09:44:001.4 [facility] FtcaojyKBVWLUXAEJ2530-07-53 09:44:0018.6[facility] HermannHEMATOLOGY 2020-08-24 09:44:003.91[facility] AgrgkaqPVRMZTUAQJ9544-64-89 09:44:0013.5[facility] NzhevyzXBJHWSEJBF9499-62-68 09:44:0038.7[facility] YfljpxaBRAHAHNNVX5088-33-82 09:44:0099.0[facility] HermannCHEM KIBLG5704-73-49 02:13:00 Test Item Value Reference Range Interpretation Comments Lactic Acid Lvl (test code = Lactic 1.5 0.5-2.2 Acid Lvl) [facility] VCRPB6595-72-90 02:13:001.5[facility]annIM[facility]UNOLOG[facility] 2020-08-23 10:58:00 Test Item Value Reference Range Interpretation Comments Coronavirus (COVID-19) Not Detected (08/23/20 DANIS (test code = 5:58 AM) Coronavirus (COVID-19) DANIS) [facility] [id number] 10:58:00Not Detected (08/23/20 5:58 AM) [facility] HospitalannCHEM [id number] 04:50:00 Test Item Value Reference Range Interpretation Comments Lipase Lvl (test code = Lipase Lvl) 5029 85-393 [facility] [id number] 04:50:00 Test Item Value Reference Range Interpretation Comments RBC Morph (test code = Normal (08/22/20 11:50 RBC Morph) PM) [facility] HospitalEkeplztBVSYZZPDRK1923-28-22 04:50:00 Test Item Value Reference Range Interpretation Comments Plt Morph (test code = Normal (08/22/20 11:50 Plt Morph) PM) [facility] [id number] 04:50:00 Test Item Value Reference Range Interpretation Comments Chol (test code = Chol) [address] [facility] [id number] 04:50:00 Test Item Value Reference Range Interpretation Comments Trig (test code = Trig) [address] [facility] [address] [facility] HospitalZsxwlayWOHQIN0481-01-15 04:50:00 Test Item Value Reference Range Interpretation Comments HDL (test code = HDL) [address] [facility] [id number] 04:50:00 Test Item Value Reference Range Interpretation Comments CHD Risk (test code = CHD Risk) 6.21 1 4.00-7.[address] [facility] [id number] 04:50:00 Test Item Value Reference Range Interpretation Comments LDL (Calculated) (test code = See Note mg/dL LDL (Calculated)) [facility] [id number] 04:50:00 Test Item Value Reference Range Interpretation Comments VLDL (test code = See Note 5*NA*(08/22/20 VLDL) 11:50 PM) [facility] [id number] 04:50:446904Rzgugten HermannHEMATOLOGY 2020-08-23 04:50:00Normal (08/22/20 11:50 PM)[facility] [id number] 04:50:00Normal (08/22/20 11:50 PM)[facility] [id number] 04:50:27128 [facility] [id number] 04:50:74582Hzifctzh [id number] 04:50:0028[facility] [id number] 04:50:00 Test Item Value Reference Range Interpretation Comments CHD Risk (test code = CHD Risk) 6.21 1 4.00-7.30 [facility] [id number] 04:50:00See Note 5*NA*(08/22/20 11:50 PM) [facility]
[2022-08-05] MEDS ORDERED: PROMETHAZINE INJ 25 MG/ML AMP ONE (10:04)
[2022-08-05] MEDS ORDERED: NA CHLORIDE 0.9% 1,000 ML ONE (10:05)
[2022-08-05] MEDS ORDERED: DIAZEPAM 10 MG/2 ML INJ SYRINGE ONE (10:05)
[2022-08-05 10:09] LABS: Absolute Lymphocytes (CBC) 1.4 K/uL (0.7-4.9); Hematocrit 48.8 % (39.6-49.0); Lymphocytes % 11.2 % (15.3-44.8); MCV 86.2 fL (80-100); MPV 6.7 fL (7.6-11.3); RBC Red Blood Cell Count 5.66 M/uL (4.33-5.43)
[2022-08-05 10:37] LABS: Urine Blood Negative (Negative); Urine Glucose 2+ (Negative); Urine Protein 2+ (Negative); Urine Specific Gravity 1.015 (1.005-1.030); Urine pH 8.5 (5.0-7.0)
[2022-08-05 10:56] LABS: ALT/SGPT 160 U/L (12-78); AST/SGOT 79 U/L (15-37); Albumin 4.2 g/dL (3.4-5.0); Alkaline Phosphatase 111 U/L (45-117); BUN Blood Urea Nitrogen 7 mg/dL (7-18); Bicarbonate 21 mmol/L (21-32); Bilirubin Direct 0.2 mg/dL (0-0.2); Bilirubin Total 0.4 mg/dL (0.2-1.0); Glomerular Filtration Rate 100 ml/min (=/>90); Glucose Level 314 mg/dL (74-106); Lipase 2354 U/L (73-393); Potassium 4.5 mmol/L (3.5-5.1); Protein, Total 8.7 g/dL (6.4-8.2); Sodium Level 134 mmol/L (136-145); Thyroid Stimulating Hormone 0.853 uIU/mL (0.360-3.740)
[2022-08-05 10:57] LABS: Barbiturates NEGATIVE (NEGATIVE); Benzodiazepines NEGATIVE (NEGATIVE); Cocaine NEGATIVE (NEGATIVE); METHAMPHETAM NEGATIVE (NEGATIVE); Methadone NEGATIVE (NEGATIVE); Opiates NEGATIVE (NEGATIVE); Phencyclidine NEGATIVE (NEGATIVE); THC Cannibis POSITIVE (NEGATIVE)
[2022-08-05] MEDS ORDERED: FOLIC ACID 1 MG, THIAMINE HCL 100 MG, MULTIVITAMINS INJ 10 ML in NA CHLORIDE 0.9% 1,000 ML IV ONE (11:00)
[2022-08-05] MEDS ORDERED: FAMOTIDINE 20 MG/2 ML VIAL IV ONE (11:05)
[2022-08-05] MEDS ORDERED: FENTANYL CITR 100 MCG/2 ML ONE (12:23)
--- NOTE | 2022-08-05 12:43 | RAD REPORT ---
EXAM DESCRIPTION: CTAbdomen Pelvis W Contrast - 08/05/2022 12:31 pm CLINICAL HISTORY: Abdominal pain. pancreatitis COMPARISON: Abdomen Pelvis W Contrast dated 07/23/2021 TECHNIQUE: Biphasic CT imaging of the abdomen and pelvis was performed with 100 ml non-ionic IV cont rast. All CT scans are performed using dose optimization technique as appropriate and may include automated exposure control or mA/KV adjustment according to patient size. FINDINGS: The lung bases are clear. The liver, spleen, adrenal glands and kidneys are within normal limits. Mild inflammation is seen cherrie rounding the pancreas compatible with mild acute pancreatitis. No pseudocyst, portal vein thrombus or pancreatic necrosis evident. No bowel obstruction, free air, free fluid or abscess. Small fat containing umbilical hernia. The lloyd endix is normal. No evidence of significant lymphadenopathy. No suspicious bony findings. IMPRESSION: Mild acute pancreatitis seen without significant complication evident.
[2022-08-05 12:59] LABS: Protime INR 1.15
[2022-08-05] MEDS ORDERED: ONDANSETRON 4 MG/2 ML VIAL ONE ×2 (13:23→16:45)
[2022-08-05] MEDS ORDERED: MORPHINE 2 MG/ML SYR ONE (13:23)
--- NOTE | 2022-08-05 13:52 | ER ---
Nurse's Notes [facility] Name: Mc Barrios Age: 32 yrs Sex: Male : 1990 Arrival Date: 08/05/2022 Time: 08:57 Bed 13 [facility] MD: Diagnosis: ALCOHOLIC PANCREATITIS Presentation: 08/05 09:25 Chief complaint: Patient states: Pt alcohol rrecovery, relapsed 3 days ago. Pt is jh5 drenched in sweat, nauseous, dry heaving in triage. Coronavirus screen: Vaccine status: Patient reports receiving the 2nd dose of the covid vaccine. Client denies travel out of the [place] in the last 14 days. Ebola Screen: Patient negative for fever greater than or equal to 101.5 degrees Fahrenheit, and additional compatible Ebola Virus Disease symptoms Patient denies exposure to infectious person. Patient denies travel to an Ebola-affected area in the 21 days before illness onset. Initial Sepsis Screen: Does the patient meet any 2 criteria? No. Patient's initial sepsis screen is negative. Does the patient have a suspected source of infection?. Risk Assessment: Do you want to hurt yourself or someone else? Patient reports no desire to harm self or others. Onset of symptoms was August 04, 2022. 09:25 Method Of Arrival: Ambulatory [facility] 09:25 Acuity: ROSCOE 2 jh5 Triage Assessment: 09:28 General: Appears distressed, uncomfortable, unkempt, Behavior is cooperative, jh5 appropriate for age, vomiting, sweating. Pain: Complains of pain in abdomen. GI: Reports upper abdominal pain, nausea, vomiting. Historical: - Allergies: : Sulfa (Sulfonamide Antibiotics); 5 - Home Meds: : hydroxyzine HCl 10 mg Oral tab [Active]; Lexapro 10 mg Oral tab 1 tab nightly [Active]; 5 lisinopril 30 mg Oral tab once daily [Active]; - PMHx: : Hypertension; [facility] 09:28 Alcoholism; Pancreatitis; [facility] - Immunization history:: Adult Immunizations up to date. - Social history:: Smoking status: . Screenin:02 Abuse screen: Denies threats or abuse. Nutritional screening: No deficits noted. jd3 Tuberculosis screening: No symptoms or risk factors identified. Fall Risk Ambulatory Aid- None/Bed Rest/Nurse Assist (0 pts). Gait- Normal/Bed Rest/Wheelchair (0 pts) Mental Status- Oriented to own ability (0 pts). Total Chung Fall Scale indicates No Risk (0-24 pts). Assessment: 09:50 General: Appears uncomfortable, Behavior is cooperative. Pain: Complains of pain in em6 left upper quadrant Pain does not radiate. Pain currently is 6 out of 10 on a pain scale. Quality of pain is described as sharp. Neuro: Waters Agitation-Sedation Scale (RASS): +1 Restless Level of Consciousness is awake, alert, obeys commands, Oriented to person, place, time, situation. Cardiovascular: Heart tones present Patient's skin is warm and dry. Rhythm is sinus rhythm. Respiratory: Airway is patent Respiratory effort is even, unlabored, Respiratory pattern is regular, symmetrical, Breath sounds are clear bilaterally. GI: Abdomen is non-distended, Abd is soft and non tender X 4 quads. Reports nausea, vomiting. : No signs and/or symptoms were reported regarding the genitourinary system. EENT: No signs and/or symptoms were reported regarding the EENT system. Derm: No signs and/or symptoms reported regarding the dermatologic system. Musculoskeletal: Circulation, motion, and sensation intact. Range of motion: intact in all extremities. 10:50 Reassessment: Patient and/or family updated on plan of care and expected duration. Pain em6 level reassessed. Reassessment: notified provider of pain. new order provided . Pain: Complains of pain in left upper quadrant. Neuro: Waters Agitation-Sedation Scale (RASS): +1 Restless Level of Consciousness is awake, alert, obeys commands, Oriented to person, place, time, situation. 12:00 Reassessment: Patient and/or family updated on plan of care and expected duration. Pain em6 level reassessed. notified provider of pain. new order provided . Pain: Complains of pain in left upper quadrant Pain does not radiate. Pain currently is 10 out of 10 on a pain scale. Neuro: Waters Agitation-Sedation Scale (RASS): 0 - Alert and Calm Level of Consciousness is awake, alert, obeys commands, Oriented to person, place, time, situation. 13:00 Reassessment: Patient and/or family updated on plan of care and expected duration. Pain em6 level reassessed. Reassessment: notified provider of pain and nausea . new order given. Pain: Complains of pain in left upper quadrant Pain currently is 10 out of 10 on a pain scale. Neuro: Waters Agitation-Sedation Scale (RASS): 0 - Alert and Calm Level of Consciousness is awake, alert, obeys commands, Oriented to person, place, time, situation. Respiratory: Airway is patent Respiratory effort is even, unlabored, Respiratory pattern is regular, symmetrical. 14:00 Reassessment: Patient and/or family updated on plan of care and expected duration. Pain em6 level reassessed. Patient states symptoms have improved. Neuro: Waters Agitation-Sedation Scale (RASS): 0 - Alert and Calm Level of Consciousness is awake, alert, obeys commands, Oriented to person, place, time, situation. 16:49 Reassessment: Francisca(lilliam) [phone]. jd3 Vital Signs: 09:25 BP 116 / 88; Pulse 116; Resp 18; Temp 97.7; Pulse Ox 95% ; Weight 127.01 kg; Height 6 [facility] ft. 3 in. (190.50 cm); Pain 10/10; 09:45 BP 140 / 103; Pulse 95; Resp 20; Pulse Ox 99% ; em6 13:53 BP 146 / 96; Pulse 113; Resp 19 S; Pulse Ox 97% on R/A; jd3 09:25 Body Mass Index 35.00 (127.01 kg, 190.50 cm) [facility] ED Course: 08:57 Patient arrived in ED. am2 09:28 Triage completed. jh5 09:28 Arm band placed on right wrist. jh5 09:45 Inserted saline lock: 20 gauge in left antecubital area, using aseptic technique. Blood jd3 collected. placed by Katie RESENDIZ. 09:48 Kristie Contreras FNP-C is [facility]. snw 09:48 Diego Pearson MD is Attending Physician. snw 10:01 Wilman Babin RN is Primary Nurse. jd3 10:02 Patient has correct armband on for positive identification. Placed in gown. Bed in low jd3 position. Call light in reach. Side rails up X2. Adult w/ patient. Client placed on continuous cardiac and pulse oximetry monitoring. NIBP monitoring applied. playground monitor on. Pulse ox on. NIBP on. Cool cloth applied. Verbal reassurance given. 10:04 TSH Sent. mb7 10:04 Lipase Sent. mb7 10:04 Acetaminophen Sent. mb7 10:04 Salicylate Sent. mb7 10:04 CBC with Diff Sent. mb7 10:04 Basic Metabolic Panel Sent. mb7 10:04 Hepatic Function Sent. mb7 10:04 ETOH Level Sent. mb7 10:04 Ptt, Activated Sent. mb7 10:04 PT-INR Sent. mb7 10:04 EKG done, by ED staff, reviewed by Kristie RAMÍREZ. mb7 10:10 AMMONIA Sent. mb7 12:33 CT Abd/Pelvis - IV Contrast Only In Process Unspecified. EDMS 13:51 Prince Piper MD is Hospitalizing Provider. snw 15:45 SARS-COV-2 Antigen Rapid Sent. em6 Administered Medications: 10:10 Drug: NS 0.9% 1000 ml Route: IV; Rate: 1 bolus; Site: left antecubital; em6 10:10 Drug: Valium (diazepam) 10 mg Route: IVP; Site: left antecubital; em6 11:00 Follow up: Response: No adverse reaction; RASS: Alert and Calm (0) em6 10:10 Drug: Phenergan (promethazine) 25 mg Route: IM; Site: right deltoid; em6 11:00 Follow up: Response: No adverse reaction em6 11:00 Drug: Pepcid (famotidine) 20 mg Route: IVP; Site: left antecubital; em6 12:00 Follow up: Response: No adverse reaction em6 11:47 Drug: Banana Bag - (NS 0.9% 1000 ml, foLIC Acid 1 mg, Thiamine 100 mg, Multivitamin 1 em6 amp) Route: IV; Rate: 150 ml/hr; Site: right antecubital; 12:21 Drug: fentaNYL (PF) 50 mcg Route: IM; Site: left deltoid; jd3 13:00 Follow up: Response: No adverse reaction; RASS: Alert and Calm (0) em6 13:15 Drug: Zofran (Ondansetron) 4 mg Route: IVP; Site: right antecubital; em6 13:40 Follow up: Response: No adverse reaction em6 13:15 Drug: morphine 2 mg Route: IVP; Infused Over: 4 mins; Site: right antecubital; em6 13:40 Follow up: Response: No adverse reaction; RASS: Alert and Calm (0) em6 Medication: 10:02 VIS not applicable for this client. jd3 Outcome: 13:51 Decision to Hospitalize by Provider. snw 18:19 Patient left the ED. jl7 Signatures: Dispatcher [employer] EDMS Kristie Contreras, METER READING CLERK-C METER READING CLERK-Csnw Lawrence Ramos RN RN jl7 Chel Pagan Jonathon RN RN jd3 Nani Lopez RN RN jh5 Valery Cruz 7 Neelima Villegas RN RN em6
--- NOTE | 2022-08-05 13:53 | EDPHYS ---
Physician Documentation [facility] Name: Mc Barrios Age: 32 yrs Sex: Male : 1990 Arrival Date: 08/05/2022 Time: 08:57 Bed 13 Private MD: ED Physician Diego Pearson HPI: 08/05 11:15 This 32 yrs old Male presents to ER via Ambulatory with complaints of Nausea/Vomiting, snw Abdominal Pain. 11:15 The patient presents to the emergency department with nausea, vomiting, abdominal pain. snw Onset: The symptoms/episode began/occurred suddenly, this morning. Possible causes: ETOH abuse. The symptoms are aggravated by nothing. Associated signs and symptoms: Pertinent positives: nausea, vomiting. Severity of symptoms: At their worst the symptoms were moderate severe. The patient has experienced similar episodes in the past, multiple times, chronically. ETOH rehab in . Pt states "don't know what I was thinking" and binged Malt liquor x 3 days. Last drink last pm. Historical: - Allergies: 09:28 Sulfa (Sulfonamide Antibiotics); 5 - Home Meds: 09:28 hydroxyzine HCl 10 mg Oral tab [Active]; Lexapro 10 mg Oral tab 1 tab nightly [Active]; 5 lisinopril 30 mg Oral tab once daily [Active]; - PMHx: 09:28 Hypertension; jh5 09:28 Alcoholism; Pancreatitis; 5 - Immunization history:: Adult Immunizations up to date. - Social history:: Smoking status: . ROS: 11:13 Eyes: Negative for injury, pain, redness, and discharge, ENT: Negative for injury, snw pain, and discharge, Neck: Negative for injury, pain, and swelling. 11:13 Respiratory: Negative for shortness of breath, cough, wheezing, and pleuritic chest pain. 11:13 Back: Negative for injury and pain, : Negative for injury, bleeding, discharge, and swelling, MS/Extremity: Negative for injury and deformity. 11:13 Psych: Negative for depression, anxiety, suicide ideation, homicidal ideation, and hallucinations. 11:13 Constitutional: Positive for body aches, fatigue, malaise, poor PO intake. 11:13 Cardiovascular: Positive for palpitations. 11:13 Abdomen/GI: Positive for abdominal pain, nausea and vomiting. 11:13 Skin: Positive for diaphoresis. 11:13 Neuro: Positive for dizziness. Exam: 11:13 Head/Face: Normocephalic, atraumatic. Eyes: Pupils equal round and reactive to light, snw extra-ocular motions intact. Lids and lashes normal. Conjunctiva and sclera are non-icteric and not injected. Cornea within normal limits. Periorbital areas with no swelling, redness, or edema. ENT: Nares patent. No nasal discharge, no septal abnormalities noted. Tympanic membranes are normal and external auditory canals are clear. Oropharynx with no redness, swelling, or masses, exudates, or evidence of obstruction, uvula midline. Mucous membranes moist. Neck: Trachea midline, no thyromegaly or masses palpated, and no cervical lymphadenopathy. Supple, full range of motion without nuchal rigidity, or vertebral point tenderness. No Meningismus. Chest/axilla: Normal chest wall appearance and motion. Nontender with no deformity. No lesions are appreciated. 11:13 Respiratory: Lungs have equal breath sounds bilaterally, clear to auscultation and percussion. No rales, rhonchi or wheezes noted. No increased work of breathing, no retractions or nasal flaring. 11:13 Back: No spinal tenderness. No costovertebral tenderness. Full range of motion. 11:13 Neuro: Awake and alert, GCS 15, oriented to person, place, time, and situation. Cranial nerves II-XII grossly intact. Motor strength 5/5 in all extremities. Sensory grossly intact. Cerebellar exam normal. Normal gait. Psych: Awake, alert, with orientation to person, place and time. Behavior, mood, and affect are within normal limits. 11:13 Constitutional: The patient appears awake, anxious, diaphoretic, frail, obese, syncopal in triage 11:13 Cardiovascular: Rate: tachycardic, Rhythm: regular, Heart sounds: normal. 11:13 Abdomen/GI: Inspection: obese Bowel sounds: normal, Palpation: mild abdominal tenderness, in the right upper quadrant, left upper quadrant, right lower quadrant and left lower quadrant. 11:13 Skin: diaphoretic. Vital Signs: 09:25 BP 116 / 88; Pulse 116; Resp 18; Temp 97.7; Pulse Ox 95% ; Weight 127.01 kg; Height 6 jh5 ft. 3 in. (190.50 cm); Pain 10/10; 09:45 BP 140 / 103; Pulse 95; Resp 20; Pulse Ox 99% ; em6 13:53 BP 146 / 96; Pulse 113; Resp 19 S; Pulse Ox 97% on R/A; jd3 09:25 Body Mass Index 35.00 (127.01 kg, 190.50 cm) [facility] MDM: 09:51 Patient medically screened. snw 13:52 Data reviewed: vital signs, nurses notes. Data interpreted: Pulse oximetry: on room air snw is 99 %. Interpretation: normal. Counseling: I had a detailed discussion with the patient and/or guardian regarding: the historical points, exam findings, and any diagnostic results supporting the discharge/admit diagnosis, the presence of at least one elevated blood pressure reading (>120/80) during this emergency department visit, lab results, radiology results, the need for further work-up and treatment in the hospital. Physician consultation: Prince Veronique CREWS was called at 13:52, was contacted at 13:52, regarding admission, to the telemetry unit. 08/05 09:50 Order name: Acetaminophen; Complete Time: 11:03 snw 08/05 09:50 Order name: Basic Metabolic Panel; Complete Time: 11:03 snw 08/05 09:50 Order name: CBC with Diff; Complete Time: 10:13 snw 08/05 09:50 Order name: ETOH Level; Complete Time: 10:37 snw 08/05 09:50 Order name: Hepatic Function; Complete Time: 11:03 snw 08/05 09:50 Order name: PT-INR; Complete Time: 13:00 snw 08/05 09:50 Order name: Ptt, Activated; Complete Time: 13:00 snw 08/05 09:50 Order name: Salicylate; Complete Time: 11:03 snw 08/05 09:50 Order name: Urine Drug Screen; Complete Time: 11:03 snw 08/05 09:50 Order name: AMMONIA; Complete Time: 10:31 snw 08/05 09:51 Order name: Lipase; Complete Time: 11:03 snw 08/05 09:51 Order name: TSH; Complete Time: 11:03 snw 08/05 10:37 Order name: Urine Dipstick-Ancillary; Complete Time: 10:45 EDMS 08/05 15:11 Order name: SARS-COV-2 Antigen Rapid 08/05 09:50 Order name: EKG; Complete Time: 09:51 formerly [facility] 08/05 09:50 Order name: EKG - Nurse/Tech; Complete Time: 10:01 formerly [facility] 08/05 09:50 Order name: IV Saline Lock; Complete Time: 10:01 formerly [facility] 08/05 09:50 Order name: Labs collected and sent; Complete Time: 10: formerly [facility] 08/05 09:50 Order name: Suicide Screening ([place]); Complete Time: 10: w 08/05 12:08 Order name: CT Abd/Pelvis - IV Contrast Only; Complete Time: 12:49 formerly [facility] 08/05 15:59 Order name: SARS-COV-2 Antigen Rapid EDDE 08/05 18:06 Order name: Hemoglobin A1c EDMS EC:14 Rate is 98 beats/min. Rhythm is regular. QRS [place] is Normal. QT interval is normal. No snw Q waves. T waves are Normal. No ST changes noted. Clinical impression: Normal ECG. Administered Medications: 10:10 Drug: NS 0.9% 1000 ml Route: IV; Rate: 1 bolus; Site: left antecubital; em6 10:10 Drug: Valium (diazepam) 10 mg Route: IVP; Site: left antecubital; em6 11:00 Follow up: Response: No adverse reaction; RASS: Alert and Calm (0) em6 10:10 Drug: Phenergan (promethazine) 25 mg Route: IM; Site: right deltoid; em6 11:00 Follow up: Response: No adverse reaction em6 11:00 Drug: Pepcid (famotidine) 20 mg Route: IVP; Site: left antecubital; em6 12:00 Follow up: Response: No adverse reaction em6 11:47 Drug: Banana Bag - (NS 0.9% 1000 ml, foLIC Acid 1 mg, Thiamine 100 mg, Multivitamin 1 em6 amp) Route: IV; Rate: 150 ml/hr; Site: right antecubital; 12:21 Drug: fentaNYL (PF) 50 mcg Route: IM; Site: left deltoid; jd3 13:00 Follow up: Response: No adverse reaction; RASS: Alert and Calm (0) em6 13:15 Drug: Zofran (Ondansetron) 4 mg Route: IVP; Site: right antecubital; em6 13:40 Follow up: Response: No adverse reaction em6 13:15 Drug: morphine 2 mg Route: IVP; Infused Over: 4 mins; Site: right antecubital; em6 13:40 Follow up: Response: No adverse reaction; RASS: Alert and Calm (0) em6 Disposition Summary: 08/05/22 13:51 Hospitalization Ordered Hospitalization Status: Inpatient Admission snw Provider: Prince Veronique snw Location: Telemetry/MedSurg (Inpatient) snw Condition: Stable snw Problem: an acute exacerbation snw Symptoms: have improved snw Bed/Room Type: Standard snw Room Assignment: 421(08/05/22 17:19) bd Diagnosis - ALCOHOLIC PANCREATITIS snw Forms: - Medication Reconciliation Form snw - SBAR form snw Signatures: Dispatcher [employer] EDMS Molly Dorsey Shelly, CARTON WRAPPER-C CARTON WRAPPER-Csnw Wilman Babin RN RN jd3 Nani Lopez RN RN jh5 Neelima Villegas RN RN em6 Corrections: (The following items were deleted from the chart) 17:19 13:51 snw bd
--- NOTE | 2022-08-05 14:42 | P.HP ---
Certification for Inpatient Patient admitted to: Inpatient With expected LOS: >2 Midnights Practitioner: I am a practitioner with admitting privileges, knowledge of patient current condition, hospital course, and medical plan of care. Services: Services provided to patient in accordance with Admission requirements found in Title 42 Section 412.3 of the Code of Federal Regulations Patient History Date of Service: 08/05/22 Reason for admission: Abdominal pain History of Present Illness: Patient is a 32-year-old male with a past medical history of hypertension, depression and obesity. He presented to the ER complaining of abdominal pain which has been progressively worsening over the past few days. Patient has a known history of excessive alcohol consumption. He has addressed this in the past and was actually sober for 9 months until recently. He states he has been dealing with some social stressor. He reports his mother is currently in need of double hip replacement and has been unable to move. He has been in the main caregiver assisting her mother with her activities of daily living and mobility. Patient found himself slowly drifting toward alcohol again and is engaging in binge drinking over the past few days. He is now having diffuse abdominal pain. Blood work in the labs revealed a lipase level of more than 2000. His urine toxicology is positive for THC and his blood alcohol level is 99. Allergies Sulfa (Sulfonamide Antibiotics) Allergy (Verified 12/17/20 13:21) UNK Home Medications: Escitalopram Oxalate [Lexapro] 10 mg PO BEDTIME 12/17/20 Hydroxyzine HCl [Atarax] 10 mg PO BID PRN 12/17/20 Chlordiazepoxide HCl [Librium] 10 mg PO TID #70 capsule 12/19/20 Codeine/APAP [Tylenol W/Codeine #3 tab] 1 tab PO Q6HP PRN #30 tab 12/19/20 Metoprolol Tartrate [Lopressor*] 50 mg PO BID #60 tab 12/19/20 Temazepam [Restoril*] 15 mg PO BEDTIME PRN PRN #10 cap 12/19/20 cloNIDine HCL [Catapres*] 0.1 mg PO BID #90 tab 12/19/20 lisinopriL [Prinivil*] 20 mg PO BID #60 tab 12/19/20 - Past Medical/Surgical History -: HTN -: Hernia - Social History Alcohol use: Yes Physical Examination - Physical Exam General: In no apparent distress, Cooperative, Obese HEENT: Atraumatic, Normocephalic Respiratory: Clear to auscultation bilaterally, Normal air movement Cardiovascular: No edema, Normal pulses, Regular rate/rhythm Gastrointestinal: Soft and benign, Tenderness Musculoskeletal: No clubbing, No swelling, No contractures Neurological: Normal speech, Normal strength at 5/5 x4 extr, Normal tone, Sensation intact, Cranial nerves 3-12 intact - Studies Laboratory Data (last 24 hrs) 08/05/22 10:00: PT 12.7 H, INR 1.15, APTT 24.2 L 08/05/22 10:00: WBC 12.20 H, Hgb 17.1, Hct 48.8, Plt Count 394 08/05/22 10:00: Sodium 134 L, Potassium 4.5, BUN 7, Creatinine 1.03, Glucose 314 H, Total Bilirubin 0.4, AST 79 H, ALT 160 H, Alkaline Phosphatase 111, Lipase 2354 H Assessment and Plan - Problems (Diagnosis) (1) Acute on chronic pancreatitis Current Visit: Yes Status: Acute (2) Acute alcohol intoxication Current Visit: Yes Status: Acute (3) Hypertension Current Visit: Yes Status: Acute (4) Obesity Current Visit: Yes Status: Acute - Plan Assessment Patient is a 32-year-old male with a known past medical history of alcohol abuse. He is currently admitted for another episode of pancreatitis after he engaging in excessive alcohol consumption. His lipase level was 2354. His blood alcohol level was 99. Acute on chronic pancreatitis Acute alcohol intoxication Transaminitis Obesity Hypertension Depression Plan: Admit inpatient Start patient on banana bag and multimodal pain regimen Will keep n.p.o. for now until abdominal pain improves Patient is a high risk for metabolic panel. Therefore, will check lipid panel and hemoglobin A1c DVT prophylaxis with Lovenox - Advance Directives Does patient have a Living Will: No Does patient have a Durable POA for Healthcare: No
[2022-08-05] MEDS: HYDROMORPHONE HCL 1 MG/ML INJ IV PRN ×3 (15:10→23:52)
[2022-08-05] MEDS ORDERED: HYDROMORPHONE HCL 1 MG/ML INJ ONE (15:12)
[2022-08-05 15:58] LABS: SARS-CoV-2 Antigen Rapid Res Negative (Negative)
[2022-08-05] MEDS ORDERED: ONDANSETRON 4 MG/2 ML VIAL IV PRN (16:29)
[2022-08-05 19:32] VITALS: BMI 37.1
[2022-08-05] MEDS: Ringers Lactate 1,000 ML IV SCH (20:30)
[2022-08-05] MEDS ORDERED: MIDAZOLAM HCL 2 MG/2 ML INJ IV PRN (21:09)
[2022-08-05] MEDS: LORazepam 2 MG/ML VIAL IV PRN (22:48)
[2022-08-06] MEDS: ONDANSETRON 4 MG/2 ML VIAL IV PRN ×3 (02:55→15:04)
[2022-08-06] MEDS: HYDROMORPHONE HCL 1 MG/ML INJ IV PRN ×5 (03:25→20:46)
[2022-08-06] MEDS: Ringers Lactate 1,000 ML IV SCH ×4 (03:25→17:32)
[2022-08-06] MEDS: LORazepam 2 MG/ML VIAL IV PRN ×3 (05:32→22:58)
[2022-08-06] MEDS: ENOXAPARIN 40 MG/0.4 ML SQ SCH (07:43)
[2022-08-06 08:38] LABS: Albumin 3.6 g/dL (3.4-5.0); Bilirubin Total 0.6 mg/dL (0.2-1.0); Protein, Total 7.5 g/dL (6.4-8.2)
[2022-08-06 08:40] LABS: Potassium 4.2 mmol/L (3.5-5.1)
--- NOTE | 2022-08-06 14:34 | P.PN ---
Subjective Date of Service: 08/06/22 Chief Complaint: Abdominal pain Subjective: Improving (patient is doing better.) Physical Examination - Vital Signs Temperature: 96.9 F Blood Pressure: 161/108 Pulse: 118 Respirations: 18 Pulse Ox (%): 96 - Physical Exam General: Cooperative, Obese HEENT: Atraumatic, Normocephalic Neck: Supple Respiratory: Clear to auscultation bilaterally, Normal air movement Cardiovascular: Regular rate/rhythm, Normal S1 S2 Gastrointestinal: Soft and benign, Non-distended Musculoskeletal: No clubbing, No swelling, No contractures Neurological: Normal speech, Sensation intact, Cranial nerves 3-12 intact Assessment And Plan - Current Problems (Diagnosis) (1) Acute on chronic pancreatitis Current Visit: Yes Status: Acute (2) Acute alcohol intoxication Current Visit: Yes Status: Acute (3) Hypertension Current Visit: Yes Status: Acute (4) Obesity Current Visit: Yes Status: Acute - Plan Assessment Patient is a 32-year-old male with a known past medical history of alcohol abuse. He is currently admitted for another episode of pancreatitis after he engaging in excessive alcohol consumption. His lipase level was 2354 on admission, and his blood alcohol level 99. Since his admission, he has done well with supportive care and his lipase is trending down. Acute on chronic pancreatitis Acute alcohol intoxication Transaminitis Obesity Hypertension Depression Plan: Start patient on full liquid diet Repeat lipase level tomorrow Continue IV fluid and multimodal pain regimen Lipid panel was checked to assess his risk for metabolic syndrome. There is no indication to start lipid-lowering agent at this time DVT prophylaxis with Lovenox Resume home dose of clonidine for blood pressure control Patient can be discharged in 1 to 2 days
[2022-08-06] MEDS: cloNIDine HCL 0.1 MG TAB PO PRN (15:03)
--- NOTE | 2022-08-06 17:13 | EKG ---
Test Date: 2022-08-05 Test Time: 10:02:22 Rubbish Collection Supervisor: MB MEASUREMENT RESULTS: Intervals: Rate: 98 CT: 128 QRSD: 90 QT: 360 QTc: 459 [place]: P: 61 CT: 128 QRS: 62 T: 50 INTERPRETIVE STATEMENTS: Normal sinus rhythm Normal ECG Compared to ECG 07/23/2021 23:27:32 No significant changes Electronically Signed On 08-06-22 17:07:04 CDT by Nick Hammond
[2022-08-07] MEDS: HYDROMORPHONE HCL 1 MG/ML INJ IV PRN ×4 (01:01→12:54)
[2022-08-07] MEDS: Ringers Lactate 1,000 ML IV SCH ×2 (01:05→08:53)
[2022-08-07] MEDS: LORazepam 2 MG/ML VIAL IV PRN (03:13)
[2022-08-07] MEDS: cloNIDine HCL 0.1 MG TAB PO PRN (05:22)
[2022-08-07 08:13] LABS: Absolute Lymphocytes (CBC) 2.2 K/uL (0.7-4.9); Hematocrit 37.1 % (39.6-49.0); Lymphocytes % 16.3 % (15.3-44.8); MCV 87.1 fL (80-100); MPV 6.7 fL (7.6-11.3); RBC Red Blood Cell Count 4.26 M/uL (4.33-5.43)
[2022-08-07] MEDS: ENOXAPARIN 40 MG/0.4 ML SQ SCH (08:54)
[2022-08-07] MEDS ORDERED: AMLODIPINE 5 MG TAB PO SCH (09:00)
[2022-08-07 10:48] VITALS: O2SAT 96
--- NOTE | 2022-08-07 12:29 | P.DS ---
Admission Date: 08/05/22 Discharge Date: 08/07/22 Disposition: ROUTINE DISCHARGE Discharge Condition: GOOD Reason for Admission: Abdominal pain - Problems (1) Acute on chronic pancreatitis Current Visit: Yes Status: Acute (2) Acute alcohol intoxication Current Visit: Yes Status: Acute (3) Hypertension Current Visit: Yes Status: Acute (4) Obesity Current Visit: Yes Status: Acute Brief History of Present Illness: Patient is a 32-year-old male with a past medical history of hypertension, depression and obesity. He presented to the ER complaining of abdominal pain which has been progressively worsening over the past few days. Patient has a known history of excessive alcohol consumption. He has addressed this in the past and was actually sober for 9 months until recently. He states he has been dealing with some social stressor. He reports his mother is currently in need of double hip replacement and has been unable to move. He has been in the main caregiver assisting her mother with her activities of daily living and mobility. Patient found himself slowly drifting toward alcohol again and is engaging in binge drinking over the past few days. He is now having diffuse abdominal pain. Blood work in the labs revealed a lipase level of more than 2000. His urine toxicology is positive for THC and his blood alcohol level is 99. Hospital Course: Patient did well on supportive care. His lipase normalized. He is tolerating diet without complications. He is now having bowel movement. He can be discharged today. Vital Signs/Physical Exam: Temp Pulse Resp BP Pulse Ox 98.4 F 103 H 18 163/100 H 96 08/07/22 08:00 08/07/22 08:55 08/07/22 08:00 08/07/22 08:55 08/07/22 08:00 General: Alert, In no apparent distress, Cooperative, Obese HEENT: Atraumatic, Normocephalic Respiratory: Clear to auscultation bilaterally, Normal air movement Cardiovascular: No edema, Normal pulses, Regular rate/rhythm, Normal S1 S2 Gastrointestinal: Soft and benign, Other (mild epigrastic tenderness) Musculoskeletal: No clubbing, No swelling, No contractures, No erythema Neurological: Normal speech, Sensation intact, Cranial nerves 3-12 intact Laboratory Data at Discharge: WBC 13.30 K/uL (4.3-10.9) H 08/07/22 07:50 Hgb 12.9 g/dL (13.6-17.9) L 08/07/22 07:50 Hct 37.1 % (39.6-49.0) L 08/07/22 07:50 Plt Count 216 K/uL (152-406) 08/07/22 07:50 PT 12.7 SECONDS (9.5-12.5) H 08/05/22 10:00 INR 1.15 08/05/22 10:00 APTT 24.2 SECONDS (24.3-36.9) L 08/05/22 10:00 Sodium 138 mmol/L (136-145) 08/06/22 02:47 Potassium 4.2 mmol/L (3.5-5.1) 08/06/22 02:47 BUN 15 mg/dL (7-18) 08/06/22 02:47 Creatinine 1.11 mg/dL (0.55-1.3) 08/06/22 02:47 Glucose 153 mg/dL (74-106) H 08/06/22 02:47 Total Bilirubin 0.6 mg/dL (0.2-1.0) 08/06/22 02:47 AST 43 U/L (15-37) H 08/06/22 02:47 ALT 107 U/L (12-78) H 08/06/22 02:47 Alkaline Phosphatase 92 U/L (45-117) 08/06/22 02:47 Triglycerides 179 mg/dL (<150) H 08/06/22 02:47 Cholesterol 88 mg/dL (<200) 08/06/22 02:47 HDL Cholesterol 25 mg/dL (40-60) L 08/06/22 02:47 Cholesterol/HDL Ratio 3.52 08/06/22 02:47 Lipase 255 U/L (73-393) 08/07/22 07:50 Home Medications: RX: cloNIDine HCL [Catapres*] 0.1 mg PO PRN PRN 08/05/22 RX: Amlodipine [Norvasc*] 5 mg PO DAILY #30 tab 08/07/22 New Medications: RX: Amlodipine [Norvasc*] 5 mg PO DAILY #30 tab Followup: NONE,NONE [Primary Care Provider] -
[2022-08-07 12:34] VITALS: BP 141/92; TEMP 98.3
== END 2022-08-07 13:55 | disposition home or self-care (01) | DRG 440 ==
LOC: ER 08:56 → ERHOLD 14:34 → 4TH 18:03
PROVIDERS: ADMIT Internal Medicine; ATTEND Internal Medicine
DX: K85.20 Alcohol induced acute pancreatitis without necrosis or infection (principal); K86.0 Alcohol-induced chronic pancreatitis; F10.129 Alcohol abuse with intoxication, unspecified; I10 Essential (primary) hypertension; E66.9 Obesity, unspecified; Z68.35 Body mass index [BMI] 35.0-35.9, adult; F32.A Depression, unspecified; Z88.2 Allergy status to sulfonamides; Z20.822 Contact with and (suspected) exposure to COVID-19
CPT/HCPCS: 36415; 74177; 80048; 80053; 80061; 80076; 80307; 80320; 80329; 81003; 82140; 82947; 83036; 83690; 84443; 85025; 85610; 85730; 87811; 93005; 96372; 99284; J1170; J1650; J2270; J2405; J2550; J3010; J3360; J3411; J7030; J7120; Q9967

== ENCOUNTER 2023-04-19 06:21 | Inpatient (IN) | payer BC ==
--- OUTSIDE RECORDS SUMMARY | 2023-04-19 06:28 | XMS REPORT | Continuity of Care Document ---
:1990 Author Organization [facility] t Address [address] [place] [address] Care Team Providers Name Role Phone Pcp, [...] Clinician Unavailable JEFF PARADA Admitting Clinician Unavailable eJff Parada Admitting Clinician Problems Condition Condition Condition Status Onset Resolution Last Treating Co mments Source Name Details Category Date Date Treatment Clinician Date Intractabl Intractabl Disease Active U nivers e vomiting e vomiting 3-21 it y of with with 00:00: [place] nausea nausea 00 Medical Branch Obesity Obesity Disease Active Univers (BMI (BMI 3-21 ity of 30-39.9) 30-39.9) 00:00: [place] 00 Medical Branch Pancreatit Pancreatit Disease Active U nivers is, is, 3-21 ity of unspecif[place] 00 Medical pancreatit pancreatit Br anch is type is type ACUTE ACUTE Diagnosis Active 2020-08-27 Me moria ALCOHOLIC ALCOHOLIC 08-22 09:42:00 l PANCREATIT PANCREATIT 00:00: He rmann IS IS Active 00 08/22/2020 [facility] PANCREATIT PANCREATI Diagnosis Active 2020-08-22 Memoria IS TIS Active 08-22 22:44:00 l 00:00: [place] n [address] [place] [id number] Per Acute Acute Problem 2020-08-28 Memor ia pancreatit pancreatit 21:20:21 l is with is with Per uninfected uninfected necrosis, necrosis, unspecifie unspecifie d d 08/28/2020 [facility] ALCOHOL ALCOHOL Diagnosis Active 2020-08-27 Memoria INDUCED INDUCED 09:42:00 l ACUTE ACUTE Per PANCREATIT PANCREATIT IS WITHO IS WITHO Active [facility] ACUTE ACUTE Diagnosis Active 2020-08-22 Mem oria PANCREATIT PANCREATIT 22:44:00 l IS WITH IS WITH [place] UNINFECTED UNINFECTED NECRO NECRO Active [facility] Allergies, Adverse Reactions, Alerts Allergy Allergy Status [...] sulfa sulfa Active Memoria drugs drugs l [place] Social History Social Habit Start Date Stop Date Quantity Comments Source Exposure to Not sure [facility] SARS-CoV-2 (event) Medica l Branch Tobacco use and 2022-02-10 2022-02-10 Never used [employer] [facility] [place] exposure 00:00:00 00:00:00 Medical Branch Tobacco Comment 2022-02-10 2022-02-10 uses vape [facility] [place] 00:00:00 00:00:00 Medical Branch Social History 2020-08-23 2020-08-23 [facility] ermann 04:06:38 04:06:38 Sex [birth year] At [birth year] [facility] [place] 00:00:00 00:00:00 Medical Branch Smoking Status Start Date Stop Date Source Never smoker [facility] Medications Ordered Filled Start Stop Current Ordering Indication Dosage Frequency Signature Comments Components Source Medication Medication Date Date Medication? Clinician (SIG) Name Name foLIC acid 2021- No [id number] 1mg Take 1 Univers 1 mg tablet 3-24 -24 tablet by it y of 00:00: 04:59 mouth [place] 00 :00 daily for Medical 30 days. Branch foLIC acid 2021- No [id number] 1mg Take 1 Univers 1 mg tablet 3-24 -24 tablet by it y of 00:00: 04:59 mouth [place] 00 :00 daily for Medical 30 days. Branch thiamine 2021- No [id number] 100mg Take 1 Univers 100 mg 3-24 -09 tablet by ity of tablet 00:00: 04:59 mouth [place] 00 :00 daily for Medical 15 days. Branch thiamine 2021- No [id number] 100mg Take 1 Univers 100 mg 3-24 -09 tablet by ity of tablet 00:00: 04:59 mouth [place] 00 :00 daily for Medical 15 days. Branch buspirone Yes Take by Unive rs HCl (BUSPAR 3-23 mouth. ity of ORAL) 16:34: [address] fluoxetine Yes 40mg Take 40 mg U nivers HCl (PROZAC 3-23 by mouth. ity of ORAL) 16:34: [address] LISINOPRIL Yes 20mg Take 20 mg U nivers ORAL 3-23 by mouth. ity of 16:34: [address] hydroxyzine Yes Take by Uni vers pamoate 3-23 mouth. ity of (VISTARIL 16:34: [address] buspirone Yes Take by Unive rs HCl (BUSPAR 3-23 mouth. ity of ORAL) 16:34: [address] fluoxetine Yes 40mg Take 40 mg U nivers HCl (PROZAC 3-23 by mouth. ity of ORAL) 16:34: [address] LISINOPRIL Yes 20mg Take 20 mg U nivers ORAL 02-12 by mouth. ity of 16:34: [address] Branch hydroxyzine Yes Take by Uni vers pamoate 02-12 mouth. ity of (VISTARIL 16:34: [place] ORAL) [address] [place] [address] Branch metoprolol 2021- No Take by Uni vers succinate 02-12 mouth ity of (TOPROL XL 15:00: 00:00 [place]. [place] ORAL[place] 51 :00 [facility] propranoloL 2021- No 10mg Take 10 mg Univers 10 mg 02-12 by mouth ity of tablet 15:00: 00:00 [place] needed. [place] 51 :00 [facility] Branch oxazepam 2021- No 15mg 15 mg, Univer s (SERAX) 02-1224 Oral, Q12H ity o f capsule 15 14:42: 14:44 TAPER, 2 [place] mg 39 :00 doses, Medical First dose Branch on Thu02/12/22 at 0945, Last dose on Thu02/12/22 at 2145, Routine dicyclomine Yes 10mg 10 mg, Univ ers (BENTYL) 02-11 Oral, QID, ity o f capsule 10 23:45: First dose [place] mg 00 on [facility] 02/11/22 at Branch 1845, Until Discontinu ed, Routine sennosides- Yes 1{tbl} 1 tablet, Univers docusate 02-11 Oral, ity of sodium 23:30: DAILY, [place] (SENOKOT-S) 00 First dose Me dical 8.6-50 mg on [facility] per tablet 02/11/22 at 1 tablet 1830, Until Discontinu ed, Routine KCL No 40meq 40 mEq, Univers (KLOR-CON 02-11 Oral, ity of M20) tablet 14:45: 13:55 ONCE, 1 [place] 40 mEq 00 :00 dose, On [facility] 02/11/22 at 0945, Routine morpHINE No 4mg 4 mg, Slow Un daylin injection 4 02-1123 IV Push, ity of mg 09:07: 08:06 [...] Yes 1mg 1 mg, Univer s (FOLATE) 3- Oral, ity of tablet 1 mg 14:00: [...] Yes 40mg 40 mg, Unive rs (PROZAC) 3-21 Oral, ity of capsule 40 14:00: DAILY, [place] mg 00 First dose Medical on Thu02/10/22 at 0900, Until Discontinu ed LORazepam 2021-0 Yes 1mg 1 mg, Slow Un daylin (ATIVAN) 02-10 IV Push, ity of injection 1 09:52: PRN, 2 [place] mg 17 doses, Medical Starting Branch on Thu02/10/22 at 0452, Until Discontinu ed, Routine, Agitation morpHINE 2021-0 2021- No 4mg 4 mg, Slow Un daylin injection 4 02-10 IV Push, ity of mg 08:49: 08:28 [place], [place] 55 :49 Starting Medical on Thu02/10/22 [...] [place] mg 39 Starting Medical on Thu02/10/22 at 0342, Until Discontinu ed, Routine, Only [...] 02-10 IV Push, ity of (PF)) 08:29: [facility] [place] injection 4 49 Starting Medi xin mg on Thu02/10/22 at 0329, Until Discontinu ed, Routine, Nausea and Vomiting (N/V) acetaminoph 2021-0 Yes 650mg 650 mg, Un daylin en 02-10 Oral, ity of (TYLENOL) 08:29: Q6[place], [place] tablet 650 49 Starting Medic al mg on Thu02/10/22 at 0329, Until Discontinu ed, Routine, Pain (scale 1-3) traMADoL 2021- No 50mg 50 mg, Univer s (ULTRAM) 02-10 Oral, ity of tablet 50 08:29: 08:28 Q8HPRN, [place] mg 49 :49 Starting Medical on Thu [place] 02/10/22 at 0329, Until 02/12/22 at 0328, Routine, Pain (scale 4-6) morpHINE 0 2021- No 4mg 4 mg, Slow Un daylin injection 4 02-10 IV Push, ity of mg 07:30: 06:37 ONCE, 1 [place] 00 :00 dose, On Medical [facility] 02/10/22 at 0230, STAT ondansetron No 4mg 4 mg, Slow Univers (ZOFRAN 02-10 IV Push, ity of (PF)) 06:37: 06:38 ONCE, 1 [place] injection 4 00 :00 dose, On Medi xin mg [facility] 02/10/22 at 0145, TIO pantoprazol No 40mg 40 mg, Uni vers e 02-10 Slow IV ity of (PROTONIX) 05:30: 04:42 Push, [place] injection 00 :00 ONCE, 1 Medical 40 mg dose, On [facility] 02/10/22 at 0030 lactated Yes 1000mL at [...] [place] mg 00 :00 dose, On Medical [facility] 02/10/22 at 0000, STAT ondansetron 2021- No 4mg 4 mg, Slow Univers (ZOFRAN 02-10 IV Push, ity of (PF)) 05:00: 04:12 ONCE, 1 [place] injection 4 00 :00 dose, On Medi xin mg [facility] 02/10/22 at 0000, TIO morpHINE 2021- No 4mg 4 mg, Slow Un daylin injection 4 02-10 IV Push, ity of mg 05:00: 04:12 ONCE, 1 [place] 00 :00 dose, On Medical Mon Branch 02/10/22 at 0000, STAT NaCl 0.9% 2021- No 1000mL at 999 Uni vers (NS) bolus 02-10 mL/hr, ity of infusion 04:30: 03:28 1,000 mL, [place] as 1,000 mL 00 :00 IV Medical Infusion, Branch ONCE, 1 dose, On 02/09/22 at 2330, TIO iohexol 2021- No [id number] 120mL 120 mL, U nivers (OMNIPAQUE 02-10 Intravenou it y of 350 04:15: 04:06 s, ONCE, 1 [place] BULK-100 00 :00 dose, On Medical mL) [place] Branch injection 02/09/22 at 120 mL 2315, Routine Fenofibrate 2019-11 Yes 145 mg = 1 Memoria 145 MG Oral 0-04 tab, PO, l Tablet 16:30: Daily, # [place] 00 30 tab, 0 Refill(s), Pharmacy: [facility] #[id number], 190.5, cm, 08/22/20 23:01:00 CDT, Height, 122.045, kg, 08/22/20 23:01:00 CDT, Weight omega-3 2019-11 Yes 1 gm = 1 Memori a polyunsatur 0-04 cap, PO, l ated fatty 16:30: BID, # 60 He rmann acids 1000 00 cap, 0 mg oral Refill(s), capsule Pharmacy: [facility] #[id number], 190.5, cm, 08/22/20 23:01:00 CDT, Height, 122.045, kg, 08/22/20 23:01:00 CDT, Weight Fenofibrate 2019-11 Yes 145 mg = 1 Memoria 145 MG Oral 0-04 tab, PO, l Tablet 16:30: Daily, # [place] 00 30 tab, 0 Refill(s), Pharmacy: [facility] #[id number], 190.5, cm, 08/22/20 23:01:00 CDT, Height, 122.045, kg, 08/22/20 23:01:00 CDT, Weight omega-3 2019-11 Yes 1 gm = 1 Memori a polyunsatur 0-04 cap, PO, l ated fatty 16:30: BID, # 60 He rmann acids 1000 00 cap, 0 mg oral Refill(s), capsule Pharmacy: [facility] #[id number], 190.5, cm, 08/22/20 23:01:00 CDT, Height, 122.045, kg, 08/22/20 23:01:00 CDT, Weight ciprofloxac 2019-11 Yes 500 mg = 1 Memoria in 500 mg 0-04 tab, PO, l oral tablet 16:26: Q12H, for H ermann 00 UTI, X 3 day, # 6 tab, 0 Refill(s), [facility][id number], 190.5, cm, 08/22/20 23:01:00 CDT, Height, 122.045, kg, 08/22/20 23:01:00 CDT, Weight Metronidazo 2019-11 Yes 500 mg = 1 Memoria le 500 MG 0-04 tab, PO, l Oral Tablet 16:26: Q8H, X 3 He rmann [Flagyl] 00 day, # 9 tab, 0 Refill(s), [id number], 190.5, cm, 08/22/20 23:01:00 CDT, Height, 122.045, kg, 08/22/20 23:01:00 CDT, Weight thiamine 2019-11 Yes 100 mg = 1 Mem oria 100 mg oral 0-04 tab, PO, l tablet 16:26: Daily, X [place] 00 30 day, # 30 tab, 0 Refill(s), [id number], 190.5, cm, 08/22/20 23:01:00 CDT, Height, 122.045, kg, 08/22/20 23:01:00 CDT, Weight Folic Acid 2019-11 Yes 1 mg = 1 Mem oria 1 MG Oral 0-04 tab, PO, l Tablet 16:26: Daily, # Per 00 30 tab, 0 Refill(s), Pharmacy: [facility] #[id number], 190.5, cm, 08/22/20 23:01:00 CDT, Height, 122.045, kg, 08/22/20 23:01:00 CDT, Weight Chlordiazep 2019-11 Yes 10 mg = 1 M emoria oxide 0-04 cap, PO, l Hydrochlori 16:26: QID, X 3 He rmann de 10 MG 00 day, # 12 Oral cap, 0 Capsule Refill(s), Pharmacy: [facility] #[id number], 190.5, cm, 08/22/20 23:01:00 CDT, Height, 122.045, kg, 08/22/20 23:01:00 CDT, Weight Lorazepam 1 2019-11 Yes 1 mg = 1 Me moria MG Oral 0-04 tab, PO, l Tablet 16:26: TID, PRN [place] [Ativan] 00 as needed for anxiety, X 7 day, # 24 tab, 0 Refill(s), Pharmacy: [facility] #[id number], 190.5, cm, 08/22/20 23:01:00 CDT, Height, 122.045, kg, 08/22/20 23:01:00 CDT, Weight Famotidine 2019-11 Yes 20 mg = 1 Me moria 20 MG Oral 0-04 tab, PO, l Tablet 16:26: Q12H, # 14 Sharita nn [Pepcid] 00 tab, 0 Refill(s), Pharmacy: [facility] #[id number], 190.5, cm, 08/22/20 23:01:00 CDT, Height, 122.045, kg, 08/22/20 23:01:00 CDT, Weight labetalol 2019-11 Yes 100 mg = 1 Me moria 100 mg oral 0-04 tab, PO, l tablet 16:26: TID, # 90 [place] 00 tab, 0 Refill(s), Pharmacy: [facility] #[id number], 190.5, cm, 08/22/20 23:01:00 CDT, Height, 122.045, kg, 08/22/20 23:01:00 CDT, Weight ciprofloxac 2019-11 Yes 500 mg = 1 Memoria in 500 mg 0-04 tab, PO, l oral tablet 16:26: Q12H, for H ermann 00 UTI, X 3 day, # 6 tab, 0 Refill(s), Pharmacy: [facility] #[id number], 190.5, cm, 08/22/20 23:01:00 CDT, Height, 122.045, kg, 08/22/20 23:01:00 CDT, Weight Metronidazo 2019-11 Yes 500 mg = 1 Memoria le 500 MG 0-04 tab, PO, l Oral Tablet 16:26: Q8H, X 3 He rmann [Flagyl] 00 day, # 9 tab, 0 Refill(s), Pharmacy: [facility] #[id number], 190.5, cm, 08/22/20 23:01:00 CDT, Height, 122.045, kg, 08/22/20 23:01:00 CDT, Weight thiamine 2019-11 Yes 100 mg = 1 Mem oria 100 mg oral 0-04 tab, PO, l tablet 16:26: Daily, X [place] 00 30 day, # 30 tab, 0 Refill(s), Pharmacy: [facility] #[id number], 190.5, cm, 08/22/20 23:01:00 CDT, Height, 122.045, kg, 08/22/20 23:01:00 CDT, Weight Folic Acid 2019-11 Yes 1 mg = 1 Mem oria 1 MG Oral 0-04 tab, PO, l Tablet 16:26: Daily, # Per 00 30 tab, 0 Refill(s), Pharmacy: [facility] #[id number], 190.5, cm, 08/22/20 23:01:00 CDT, Height, 122.045, kg, 08/22/20 23:01:00 CDT, Weight Chlordiazep 2019-11 Yes 10 mg = 1 M emoria oxide 0-04 cap, PO, l Hydrochlori 16:26: QID, X 3 He rmann de 10 MG 00 day, # 12 Oral cap, 0 Capsule Refill(s), Pharmacy: [facility] #[id number], 190.5, cm, 08/22/20 23:01:00 CDT, Height, 122.045, kg, 08/22/20 23:01:00 CDT, Weight Lorazepam 1 2019-11 Yes 1 mg = 1 Me moria MG Oral 0-04 tab, PO, l Tablet 16:26: TID, PRN Per [Ativan] 00 as needed for anxiety, X 7 day, # 24 tab, 0 Refill(s), Pharmacy: [facility] #[id number], 190.5, cm, 08/22/20 23:01:00 CDT, Height, 122.045, kg, 08/22/20 23:01:00 CDT, Weight Famotidine 2019-11 Yes 20 mg = 1 Me moria 20 MG Oral 0-04 tab, PO, l Tablet 16:26: Q12H, # 14 [place] nn [Pepcid] 00 tab, 0 Refill(s), Pharmacy: [facility] #[id number], 190.5, cm, 08/22/20 23:01:00 CDT, Height, 122.045, kg, 08/22/20 23:01:00 CDT, Weight labetalol 2019-11 Yes 100 mg = 1 Me moria 100 mg oral 0-04 tab, PO, l tablet 16:26: TID, # 90 [place] n 00 tab, 0 Refill(s), Pharmacy: [facility] #[id number], 190.5, cm, 08/22/20 23:01:00 CDT, Height, 122.045, [...] oria 0-03 to exceed l 22:12: 400mg/day. [place] 00 (Same As: Ultram) Lisinopril 2019-11 No Notes: Memor ia 0-03 (Same as: l 17:00: Prinivil, Per 00 Zestril) Lisinopril 2019-11 No Notes: Memor ia 0-03 (Same as: l 17:00: Prinivil, Per 00 Zestril) Potassium 2019-11 No Notes: Memori a Chloride 0-03 (Same as: l 16:35: K-Dur 20) [place] 00 "Do Not Crush" Give with food and full glass of water For patients unable to swallow tablet, dissolve in one half glass of water. Allow about 2 minutes for the tablets to disintegra te. Stir before giving to prepare slurry and administer . Please exclude Patient s with feeding tube less than 14 Filipino (Dobhoff, J-tube etc) and pediatric and patients. potassium 2019-11 No Notes: Memori a phosphate-s 0-03 (Same as: l odium 16:35: Phos-NaK) [place] phosphate 00 Each 1.5 250 mg-280 gm [...] phosphate 0-03 Infuse l 16:35: over 4 [place] 00 hour. Do not infuse phosphorou s [...] Oxide 0-03 (Same as: l 16:35: Mag-Ox [place] 00 400) Magnesium oxide 075ee=024y g elemental magnesium Dose=____m g magnesium oxide (___mg elemental magnesium) Calcium 2019-11 No Notes: Memoria Gluconate 0-03 WASTE: F/P l 16:35: - Sink; E [place] 00 - Municipal Trash Bin Potassium 2019-11 [...] s with feeding tube less than 14 Filipino (Dobhoff, J-tube etc) and pediatric and patients. potassium 2019-11 No Notes: Memori a phosphate-s 0-03 (Same as: l odium 16:35: Phos-NaK) phosphate 00 Each 1.5 250 mg-280 gm [...] WASTE: F/P l 16:35: - Sink; E - Municipal Trash Bin Magnesium 2019-11 No Notes: Memori a Oxide 0-03 (Same as: l 16:35: Mag-Ox Per 00 400) Magnesium oxide 599xh=548w g elemental magnesium Dose=____m g magnesium oxide [...] a 0-03 With food. l 15:00: (Same [place] 00 as:Trandat e, Normodyne) Labetalol 2019-11 No Notes: Memori a 0-03 With food. l 15:00: (Same Per 00 as:Trandat e, Normodyne) Lactulose 2019-11 No Notes: Memori a 667 MG/ML 0-02 (Same l Oral 21:03: as:Chronul Per Solution 00 ac) Haldol 2019-11 No Notes: Memoria 0-02 (Same as: l 21:03: Haldol) [place] Lactulose 2019-11 No Notes: Memori a 667 MG/ML 0-02 (Same l Oral 21:03: as:Chronul Per Solution 00 ac) Haldol 2019-11 No Notes: Memoria 0-02 (Same as: l 21:03: Haldol) [place] Ciprofloxac 2019-11 No Notes: Do M emoria in 0-02 not l 14:00: refrigerat Per 00 e Flagyl 2019-11 No Notes: Memoria 0-02 (Same as: l 14:00: Flagyl) [place] Avoid alcohol. Ciprofloxac 2019-11 No Notes: Do M emoria in 0-02 not l 14:00: refrigerat [place] 00 e Flagyl 2019-11 No Notes: Memoria 0-02 (Same as: l 14:00: Flagyl) [place] 00 Avoid alcohol. Famotidine 2019-11 No Notes: Memor ia 20 MG Oral 0-02 (Same as: l Tablet 02:00: Pepcid) [place] [Pepcid] 00 168 HR 2019-11 No Notes: Memoria Clonidine 0-02 Patch l 0.99388 02:00: delivers [place] MG/HR 00 0.2 mg/24 Transdermal hours; Patch Patch is applied weekly. "Remove old patch before applicatio n of new patch" (Same As: Catapres-T TS-2) Famotidine 2019-11 No Notes: Memor ia 20 MG Oral 0-02 (Same as: l Tablet 02:00: Pepcid) [place] [Pepcid] 00 168 HR 2019-11 No Notes: Memoria Clonidine 0-02 Patch l 0.48641 02:00: delivers Bakari n MG/HR 00 0.2 [...] a 0-02 (Same as: l 01:41: Normodyne, [place] 00 Trandate) Push over 2 minutes Give [...] ia 0-01 (Same as: l 14:00: Folvite) [place] 00 multivitami 2019-11 No Notes: Reagan sharonda n 0-01 (Same l 14:00: as:Thera) [place] 00 WASTE: F/P - Black; E - Municipal Trash Bin Take with food. Thiamine 2019-11 No Notes: Memoria 0-01 (Same As: l 14:00: Vitamin [place] 00 B1) multivitami 2019-11 No Notes: Reagan [...] tab, PO, l tablet 04:14: Daily, # [place] 00 30 tab, 0 Refill(s) NS (Bolus) 2019-11 No 1,000 mL, Me moria IV 0-01 1,000 l 04:14: ml/hr, [place] 00 Infuse Over: 1 hr, Route: IV, [...] 0-01 Route: IM, l 04:10: Drug form: [place] 00 PDR/INJ, PRN, Dosing Weight 122.045, kg, [...] Systolic blood 2022-02-12 17:02:00 158 mm[Hg] Ino yadav [facility] Diastolic blood 2022-02-12 17:02:00 94 mm[Hg] Unive rsity [facility] Heart rate 2022-02-12 17:02:00 84 /min Universi [facility] Respiratory rate 2022-02-12 17:02:00 18 /min [facility] Oxygen saturation in 2022-02-12 17:02:00 95 /min [facility] Arterial blood by [facility] Pulse oximetry Branch Body temperature 2022-02-12 17:01:00 36.11 Gladys [facility] Body weight 2022-02-12 09:19:00 130.001 kg [facility] BMI 2022-02-12 09:19:00 35.82 kg/m2 [facility] Body height 2022-02-10 08:06:00 190.5 cm [facility] Temperature Oral (F) 2020-08-26 13:00:00 98.9 F [facility] Per Heart Rate 2020-08-26 13:00:00 [facility] [place] Respitory Rate 2020-08-26 13:00:00 Memori al [place] Systolic (mm Hg) 2020-08-26 13:00:00 Reagan rial Per Diastolic (mm Hg) 2020-08-26 13:00:00 Mem orial [place] Temperature Oral (F) 2020-08-26 09:00:00 98.4 F Memorial Per Heart Rate 2020-08-26 09:00:00 Memorial Per Respitory Rate 2020-08-26 09:00:00 Memori al [place] Systolic (mm Hg) 2020-08-26 09:00:00 Reagan rial Per Diastolic (mm Hg) 2020-08-26 09:00:00 Mem orial [place] Systolic (mm Hg) 2020-08-26 07:30:00 Reagan rial [place] Diastolic (mm Hg) 2020-08-26 07:30:00 Mem orial Per Heart Rate 2020-08-26 07:30:00 Memorial [place] Temperature Oral (F) 2020-08-26 05:00:00 100.6 F Memorial [place] Respitory Rate 2020-08-26 05:00:00 Memori al [place] Height 2020-08-23 04:01:00 190.5 cm Memorial Per Weight 2020-08-23 04:01:00 Memorial Per BMI Calculated 2020-08-23 04:01:00 Lubna Arredondo Procedures Procedure Date / Time Performing Clinician Source Performed LIPASE 2022-02-11 08:44:00 Dino [facility] MAGNESIUM 2022-02-11 08:44:00 [facility] BASIC METABOLIC PANEL 2022-02-11 08:44:00 Dino [facility] (NA, K, CL, CO2, GLUCOSE, Medica l Branch BUN, CREATININE, CA) CBC WITH DIFF 2022-02-11 08:44:00 Dino [facility] LOW-DENSITY LIPOPROTEIN, 2022-02-10 15:01[facility]00 [facility] L[facility] ([id number])(TOTAL 2022-02-10 15:01:00 Dino [facility] CHOLESTEROL, [facility] TRIGLYCERIDES, HDL) HB ECG ROUTINE & RHYTHM 2022-02-10 04:21:20 Chastity Giles [facility] STRIP [facility] CT ABDOMEN PELVIS W 2022-02-10 04:11:02 Chastity Giles [facility] CONTRAST Medical Branch COVID-19 (ID NOW RAPID 2022-02-10 03:58:00 Chastity Giles [facility] TESTING) Medical Branch LAB ONLY COVID 2022-02-10 03:58:[address] [facility] INTERPRETATION [facility] N-TERMINAL PRO-BNP 2022-02-10 03:28:00 Chastity Giles [facility] URINE DRUG (IMMUNOASSAY) 2022-02-10 03:28:00 Chastity Giles [facility] - COMPREHENSIVE DRUG Medical [facility] SCREEN W/O REFLEX LIPASE 2022-02-10 03:28:00 Chastity Giles [facility] COMP. METABOLIC PANEL 2022-02-10 03:28:00 Chastity Giles [facility] ([id number]) Medical Branch ETHANOL 2022-02-10 03:28:00 Chastity Giles [facility] CBC WITH DIFF 2022-02-10 03:28:00 Chastity Giles [facility] URINALYSIS 2022-02-10 03:28:00 Chastity Giles [facility] NOTICE OF PRIVACY 2022-02-10 02:09:50 Doctor Unassigned, [facility] PRACTICES [facility] [place] [facility] CONSENT/REFUSAL FOR 2022-02-10 02:08:16 Doctor Unassigned, [facility] DIAGNOSIS AND TREATMENT [place] [facility] Encounters Start End Encounter Admission Attending Care Care Encounter Source Date/Time Date/Time Type Type Clinicians Facility Department ID 2022-02-13 2022-02-13 Transition RACHAEL Dowd [id number] Univers 00:00:00 00:00:00 of Care Kaela DUNN [id number] ity of [place] [id number] [facility] [id number] [facility] 403 Branch 2022-02-09 2022-02-12 [facility] Chastity Giles [facility] [id number] Univers 21:40:00 16:33:00 Encounter Luz Marina Sun [id number] ity of Rodriguez Andres [id number] [facility] [id number] [facility] 081 Branch 2022-02-09 2022-02-12 Inpatient X DELMY WVTERRELL FATEMEH [id number] Univers 21:40:00 16:33:00 RODRIGUEZ [facility] 2020-08-23 2020-08-26 Inpatient [facility] [id number] Memoria 03:35:00 18:15:00 [place] [address] l [facility] 2020-08-23 2020-08-26 Inpatient [facility] [id number] Memoria 03:35:00 18:15:[address] 2020-08-22 2020-08-26 Inpatient U MELANIA PARADA MED 0274 MHBL 22:35:00 13:15:00 JEFF 2020-08-22 2020-08-26 Outpatient EMEKA ParadaPL [facility]PL [id number] 22:35:00 13:15:00 [place] [id number] 2020-08-22 2020-08-26 Outpatient Shital, [facility] [id number] 22:35:00 13:15:00 Jeff 74 Results Test Description Test Time Test Comments Results Result Comments Source MAGNESIUM 2022-02-11 14:38:24 Test Item Value Reference Range Interpretation Comme nts MAGNESIUM (test code = 3514220578) 1.6 mg/dL 1.7-2.4 L Lab Interpretation (test code = 23141-3) Abnormal [facility] Metabolic Panel (NA, K, CL, CO2, GLUCOSE, BUN, CREATININE, CA)2022-02-11 10:17:51 Test Item Value Reference Range Interpretation Comments NA (test code = 135 mmol/L 135-145 [id number]) K (test code = 3.4 mmol/L 3.5-5.0 L 2463446012) CL (test code = 101 mmol/L 98-108 6811848024) CO2 TOTAL (test code = 24 mmol/L 23-31 0466078162) AGAP (test code = 2-16 6822219782) BUN (test code = 8 mg/dL 7-23 3727824329) GLUCOSE (test code = 117 mg/dL 70-110 H 0125131833) CREATININE (test code = 0.57 mg/dL 0.60-1.25 L 0392984827) CALCIUM (test code = 8.0 mg/dL 8.6-10.6 L 0247003135) eGFR (test code = mL/min/1.73m2 3730841736) JOEY (test code = JOEY) Association of [...] tests). Lab Interpretation Abnormal (test code = 48039-9) [facility] Test Item Value Reference Range Interpretation Comments LIPASE (test code = 6625368666) 760 U/L 0-220 H Lab Interpretation (test code = Abnormal 33437-0) [facility] Gwmeezofpqmi6840-16-84 10:04:30 Test Item Value Reference Range Interpretation Comments WBC (test code = See_Comment [Automated 9690-2) message] The sy stem which generated this result transmitted reference range : 4.20 - 10.70 10*3/?L. The reference range was not used to interpret this result as normal/abnormal . RBC (test code = See_Comment [Automated 656-8) message] The sy stem which generated this [...] RDW-SD (test code = 41.1 fL 38.5-51.6 68087-3) RDW-CV (test code = 12.6 % 12.1-15.4 788-0) PLT (test code = See_Comment [Automated 777-3) message] The sy stem which generated this result transmitted reference range : 150 - 328 10*3/ ?L. The reference r jose guadalupe was not used to interpret this result as normal/abnormal . MPV (test code = 8.8 fL 9.8-13.0 L 11702-5) NRBC/100 WBC (test See_Comment [Automat ed code = 6669728611) message] The system which generated this result transmitted reference range : 0.0 - 10.0 /100 WBCs. The refer ence range was not u sed to interpret th is result as normal/abnormal . NRBC x10^3 (test code <0.01 See_Comment [Auto mated = 8432054264) message] The s ystem which generated this result transmitted reference range : 10*3/?L. The reference range was not used to interpret this result as normal/abnormal . GRAN MAT (NEUT) % 67.4 % (test code = 770-8) IMM GRAN % (test code 0.30 % = 8402006460) LYMPH % (test code = 21.3 % 736-9) MONO % (test code = 6.1 % 5905-5) EOS % (test code = 4.5 % 713-8) BASO % (test code = 0.4 % 706-2) GRAN MAT x10^3(ANC) 5.00 10*3/uL 1.99-6.95 (test code = 6077771315) IMM GRAN x10^3 (test <0.03 0.00-0.06 code = 0446367791) LYMPH x10^3 (test code 1.58 10*3/uL 1.09-3.23 = 731-0) MONO x10^3 (test code 0.45 10*3/uL 0.36-1.02 = 742-7) EOS x10^3 (test code = 0.33 10*3/uL 0.06-0.53 711-2) BASO x10^3 (test code 0.03 10*3/uL 0.01-0.09 = 704-7) Lab Interpretation Abnormal (test code = 16776-5) [facility], [id number] 20:39:08 Test Item Value Reference Range Interpretation Comments dLDL Chol (test code = 76922-4) 116 mg/dL <130 Lab Interpretation (test code = Normal 45760-6) [facility]22091[facility]TOTAL CHOLESTEROL, TRIGLYCERIDES, HDL)2022-02-10 15:44:01 Test Item Value Reference Range Interpretation Comments CHOL (test code = 226 mg/dL 120-200 H 0652379225) HDL (test code = 76 mg/dL >40 2631592319) HDLC RATIO (test code = See_Comment [Au tomated message] 2019847540) The system [employer] generated this result transmit mary carmen reference range : <=5.0. The refe rence range was not u sed to interpret th is result as normal/abnormal . TRIG (test code = 139 mg/dL 30-170 4074441630) LDL CHOL (test code = 122 mg/dL See_Comment [Auto mated message] 71321-2) The system [employer] generated this result transmit mary carmen reference range : <=160. The refe rence range was not u sed to interpret th is result as normal/abnormal . VLDL (test code = 28 mg/dL 5-60 1840493759) Lab Interpretation (test Abnormal code = 84782-1) [facility] 05:05:53 Test Item Value Reference Range Interpretation Comments ALCOHOL (test code = 280 mg/dL 7891526572) JOEY (test code = JOEY) <10 Orldfbmz84-325 Toxic>100 Depression of STRATEGIC COMMUNICATIONS SPECIALIST>400 Fatalities Reported [facility] [id number]-[id number] 04:12:13 Test Item Value Reference Range Interpretation Comments NT-proBNP (test code 441 pg/mL See_Comment H [Autom ated = 2026906793) message] The system which generated this result transmitted reference range : <=125. The reference range was not used to interpret this result as normal/abnormal . JOEY (test code = JOEY) Biotin has been reported to cause a negative bias, interpret results relative to patient's use of biotin. Lab Interpretation Abnormal (test code = 93173-1) [facility] (67288)2022-02-10 03:56:30 Test Item Value Reference Range Interpretation Comments NA (test code = 137 mmol/L 135-145 6556380342) K (test code = 5.4 mmol/L 3.5-5.0 H 8066812903) CL (test code = 101 mmol/L 98-108 7218910812) CO2 TOTAL (test code = 25 mmol/L 23-31 0734408323) AGAP (test code = 2-16 8827775736) BUN (test code = 21 mg/dL 7-23 9104482256) GLUCOSE (test code = 120 mg/dL 70-110 H 9850313206) CREATININE (test code = 0.93 mg/dL 0.60-1.25 5785277746) TOTAL BILI (test code = 0.7 mg/dL 0.1-1.0 0767671339) CALCIUM (test code = 8.8 mg/dL 8.6-10.6 3401172100) T PROTEIN (test code = 7.5 g/dL 6.3-8.2 6403674909) ALBUMIN (test code = 4.2 g/dL 3.5-5.0 3761566940) ALK PHOS (test code = 86 U/L 34-122 6600795865) ALTv (test code = 75 U/L 5-50 H 1742-6) AST(SGOT) (test code = 93 U/L 13-40 H 8727419479) eGFR (test code = mL/min/1.73m2 1983424421) JOEY (test code = JOEY) Association of [...] tests). Lab Interpretation Abnormal (test code = 17921-3) [facility] 03[facility]56:30 Test Item Value Reference Range Interpretation Comments LIPASE (test code = 3519190343) 335 U/L 0-220 H Lab Interpretation (test code = Abnormal 09353-5) [facility] WITH [id number] 03:40:28 Test Item Value Reference Range Interpretation Comments WBC (test code = See_Comment [Automated 8290-2) message] The sy stem which generated this result transmitted reference range : 4.20 - 10.70 10*3/?L. The reference range was not used to interpret this result as normal/abnormal . RBC (test code = See_Comment [Automated 219-8) message] The sy stem which generated this [...] RDW-SD (test code = 42.0 fL 38.5-51.6 10890-2) RDW-CV (test code = 13.1 % 12.1-15.4 788-0) PLT (test code = See_Comment [Automated 777-3) message] The sy stem which generated this result transmitted reference range : 150 - 328 10*3/ ?L. The reference r jose guadalupe was not used to interpret this result as normal/abnormal . MPV (test code = 8.4 fL 9.8-13.0 L 68406-8) NRBC/100 WBC (test See_Comment [Automat ed code = 0612125529) message] The system which generated this result transmitted reference range : 0.0 - 10.0 /100 WBCs. The refer ence range was not u sed to interpret th is result as normal/abnormal . NRBC x10^3 (test code <0.01 See_Comment [Auto mated = 3315438998) message] The s ystem which generated this result transmitted reference range : 10*3/?L. The reference range was not used to interpret this result as normal/abnormal . GRAN MAT (NEUT) % 60.6 % (test code = 770-8) IMM GRAN % (test code 0.50 % = 1057344223) LYMPH % (test code = 30.8 % 736-9) MONO % (test code = 6.0 % 5905-5) EOS % (test code = 1.3 % 713-8) BASO % (test code = 0.8 % 706-2) GRAN MAT x10^3(ANC) 5.09 10*3/uL 1.99-6.95 (test code = 7196964390) IMM GRAN x10^3 (test 0.04 10*3/uL 0.00-0.06 code = 3336664157) LYMPH x10^3 (test code 2.59 10*3/uL 1.09-3.23 = 731-0) MONO x10^3 (test code 0.50 10*3/uL 0.36-1.02 = 742-7) EOS x10^3 (test code = 0.11 10*3/uL 0.06-0.53 711-2) BASO x10^3 (test code 0.07 10*3/uL 0.01-0.09 = 704-7) Lab Interpretation Abnormal (test code = 66763-3) [facility]2020[facility] 09:37:00 Test Item Value Reference Range Interpretation Comments MCHC (test code = MCHC) 34.3 32.0-36.0 [place] [address]-10-04 09:37:00 Test Item Value Reference Range Interpretation Comments RDW (test code = RDW) 13.2 11.5-14.5 [place] [address]-10-04 09:37:00 Test Item Value Reference Range Interpretation Comments Platelet (test code = Platelet) 175 133-450 [facility]villeMohlgikJYMUKXUCYJ5573-54-26 09:37:00 Test Item Value Reference Range Interpretation Comments MPV (test code = MPV) 7.2 7.4-10.4 [place] 594070-10-04 09:37:00 Test Item Value Reference Range Interpretation Comments Glucose Lvl (test code = Glucose Lvl) 106 70-99 [place] 594070-10-04 09:37:00 Test Item Value Reference Range Interpretation Comments BUN (test code = BUN) 8 7-22 [place] 594070-10-04 09:37:00 Test Item Value Reference Range Interpretation Comments Creatinine Lvl (test code = Creatinine 0.65 0.50-1.40 Lvl) [facility]2020-10-04 09:37:00 Test Item Value Reference Range Interpretation Comments Sodium Lvl (test code = Sodium Lvl) 137 135-145 [place] 594070-10-04 09:37:00 Test Item Value Reference Range Interpretation Comments Potassium Lvl (test code = Potassium 3.1 3.5-5.1 Lvl) [place] 594070-10-04 09:37:00 Test Item Value Reference Range Interpretation Comments Chloride Lvl (test code = Chloride Lvl) 102 95-109 [place] [address]-10-04 09:37:00 Test Item Value Reference Range Interpretation Comments CO2 (test code = CO2) 26 24-32 [facility]2020-10-04 09:37:00 Test Item Value Reference Range Interpretation Comments Calcium Lvl (test code = Calcium Lvl) 8.2 8.5-10.5 [place] 594070-10-04 09:37:00 Test Item Value Reference Range Interpretation Comments Total Protein (test code = Total 6.4 6.4-8.4 Protein) [facility]2020-10-04 09:37:00 Test Item Value Reference Range Interpretation Comments Albumin Lvl (test code = Albumin Lvl) 2.3 3.5-5.0 [place] 594070-10-04 09:37:00 Test Item Value Reference Range Interpretation Comments ALT (test code = ALT) 76 See_Comment [Auto mated message] The system which ge nerated this result transmit mary carmen reference range : <=65. The reference range was not used to interpr et this result as casey l/abnormal. [place] [address]-10-04 09:37:00 Test Item Value Reference Range Interpretation Comments AST (test code = AST) 86 See_Comment [Auto mated message] The system which ge nerated this result transmit mary carmen reference range : <=37. The reference range was not used to interpr et this result as casey l/abnormal. [facility]TimbreEV[facility] [id number] 09:37:00 Test Item Value Reference Range Interpretation Comments Alk Phos (test code = Alk Phos) 85 39-136 [place] [address]-10-04 09:37:00 Test Item Value Reference Range Interpretation Comments Bili Total (test code = Bili Total) 0.8 0.2-1.3 [place] 594070-10-04 09:37:00 Test Item Value Reference Range Interpretation Comments AGAP (test code = AGAP) 12.1 10.0-20.0 [place] [address]-10-04 09:37:00 Test Item Value Reference Range Interpretation Comments B/C Ratio (test code = B/C Ratio) 12 1 6-25 [place] [address]-10-04 09:37:00 Test Item Value Reference Range Interpretation Comments Globulin (test code = Globulin) 4.1 2.7-4.2 [place] [address]-10-04 09:37:00 Test Item Value Reference Range Interpretation Comments A/G Ratio (test code = A/G Ratio) 0.6 1 0.7-1.6 [place] [address]-10-04 09:37:00 Test Item Value Reference Range Interpretation Comments eGFR (test code = eGFR) 131 [facility] StephenvilleJxmvmisKZGFZACHDA2439-19-42 09:37:00 Test Item Value Reference Range Interpretation Comments Segs (test code = Segs) 74.5 45.0-75.0 [place] 046660-10-04 09:37:00 Test Item Value Reference Range Interpretation Comments Lymphocytes (test code = Lymphocytes) 12.0 20.0-40.0 [place] 046660-10-04 09:37:00 Test Item Value Reference Range Interpretation Comments Monocytes (test code = Monocytes) 11.7 2.0-12.0 [place] 046660-10-04 09:37:00 Test Item Value Reference Range Interpretation Comments Eosinophils (test code = 1.6 See_Comment [A utomated message] The Eosinophils) system which ge nerated this result tra nsmitted reference range : <=4.0. The reference r jose guadalupe was not used to int erpret this result as normal/abnormal . [place] [address]-10-04 09:37:00 Test Item Value Reference Range Interpretation Comments Basophils (test code = 0.2 See_Comment [Aut omated message] The Basophils) system which ge nerated this result tra nsmitted reference range : <=1.0. The reference r jose guadalupe was not used to int erpret this result as normal/abnormal . [facility] StephenvilleTpkuqbgABOOGGVFFR7214-50-04 09:37:00 Test Item Value Reference Range Interpretation Comments Neutrophils # (test code = Neutrophils 9.7 1.5-8.1 #) [facility] StephenvilleYqrwwmuHVQJXPTVFU4119-12-30 09:37:00 Test Item Value Reference Range Interpretation Comments Lymphocytes # (test code = Lymphocytes 1.6 1.0-5.5 #) [place] [address]-10-04 09:37:00 Test Item Value Reference Range Interpretation Comments Monocytes # (test code 1.5 See_Comment [Aut omated message] The = Monocytes #) system which generated this result tra nsmitted reference range : <=0.8. The reference r jose guadalupe was not used to int erpret this result as normal/abnormal . [facility] StephenvilleJnlfynwIRDIFQVVYV1000-65-30 09:37:00 Test Item Value Reference Range Interpretation Comments Eosinophils # (test code 0.2 See_Comment [A utomated message] The = Eosinophils #) system wh h generated this result tra nsmitted reference range : <=0.5. The reference r jose guadalupe was not used to int erpret this result as normal/abnormal . [place] 046660-10-04 09:37:00 Test Item Value Reference Range Interpretation Comments WBC (test code = WBC) 13.0 3.7-10.4 [place] 046660-10-04 09:37:00 Test Item Value Reference Range Interpretation Comments RBC (test code = RBC) 3.37 4.70-6.10 [place] 046660-10-04 09:37:00 Test Item Value Reference Range Interpretation Comments Hgb (test code = Hgb) 11.5 14.0-18.0 [place] [address]-10-04 09:37:00 Test Item Value Reference Range Interpretation Comments Hct (test code = Hct) 33.6 42.0-54.0 [place] [address]-10-04 09:37:00 Test Item Value Reference Range Interpretation Comments MCV (test code = MCV) 99.7 80.0-94.0 [place] [address]-10-04 09:37:00 Test Item Value Reference Range Interpretation Comments MCH (test code = MCH) 34.2 pg 27.0-31.0 [place] [address]-10-04 09:37:00 Test Item Value Reference Range Interpretation Comments MCHC (test code = MCHC) 34.3 32.0-36.0 [place] [address]-10-04 09:37:00 Test Item Value Reference Range Interpretation Comments RDW (test code = RDW) 13.2 11.5-14.5 [place] 046660-10-04 09:37:00 Test Item Value Reference Range Interpretation Comments Platelet (test code = Platelet) 175 133-450 [facility] StephenvilleIfawdzmTMRZXYIROE9933-65-75 09:37:00 Test Item Value Reference Range Interpretation Comments MPV (test code = MPV) 7.2 7.4-10.4 [facility]2020-10-04 09:37:00 Test Item Value Reference Range Interpretation Comments Glucose Lvl (test code = Glucose Lvl) 106 70-99 [facility]2020-10-04 09:37:00 Test Item Value Reference Range Interpretation Comments BUN (test code = BUN) 8 7-22 [place] [address]-10-04 09:37:00 Test Item Value Reference Range Interpretation Comments Creatinine Lvl (test code = Creatinine 0.65 0.50-1.40 Lvl) [place] [address]-10-04 09:37:00 Test Item Value Reference Range Interpretation Comments Sodium Lvl (test code = Sodium Lvl) 137 135-145 [place] [address]-10-04 09:37:00 Test Item Value Reference Range Interpretation Comments Potassium Lvl (test code = Potassium 3.1 3.5-5.1 Lvl) [place] [address]-10-04 09:37:00 Test Item Value Reference Range Interpretation Comments Chloride Lvl (test code = Chloride Lvl) 102 95-109 [place] [address]-10-04 09:37:00 Test Item Value Reference Range Interpretation Comments CO2 (test code = CO2) 26 24-32 [place] [address]-10-04 09:37:00 Test Item Value Reference Range Interpretation Comments Calcium Lvl (test code = Calcium Lvl) 8.2 8.5-10.5 [place] [address]-10-04 09:37:00 Test Item Value Reference Range Interpretation Comments Total Protein (test code = Total 6.4 6.4-8.4 Protein) [place] [address]-10-04 09:37:00 Test Item Value Reference Range Interpretation Comments Albumin Lvl (test code = Albumin Lvl) 2.3 3.5-5.0 [place] [address]-10-04 09:37:00 Test Item Value Reference Range Interpretation Comments ALT (test code = ALT) 76 See_Comment [Auto mated message] The system which ge nerated this result transmit mary carmen reference range : <=65. The reference range was not used to interpr et this result as casey l/abnormal. [facility] [id number] 09:37:00 Test Item Value Reference Range Interpretation Comments AST (test code = AST) 86 See_Comment [Auto mated message] The system which ge nerated this result transmit mary carmen reference range : <=37. The reference range was not used to interpr et this result as casey l/abnormal. [facility] [id number] 09:37:00 Test Item Value Reference Range Interpretation Comments Alk Phos (test code = Alk Phos) 85 39-136 [facility]2020-10-04 09:37:00 Test Item Value Reference Range Interpretation Comments Bili Total (test code = Bili Total) 0.8 0.2-1.3 [place] 594070-10-04 09:37:00 Test Item Value Reference Range Interpretation Comments AGAP (test code = AGAP) 12.1 10.0-20.0 [place] [address]-10-04 09:37:00 Test Item Value Reference Range Interpretation Comments B/C Ratio (test code = B/C Ratio) 12 1 6-25 [place] [address]-10-04 09:37:00 Test Item Value Reference Range Interpretation Comments Globulin (test code = Globulin) 4.1 2.7-4.2 [place] [address]-10-04 09:37:00 Test Item Value Reference Range Interpretation Comments A/G Ratio (test code = A/G Ratio) 0.6 1 0.7-1.6 [place] [address]-10-04 09:37:00 Test Item Value Reference Range Interpretation Comments eGFR (test code = eGFR) 131 [place] [address]-10-04 09:37:00 Test Item Value Reference Range Interpretation Comments Segs (test code = Segs) 74.5 45.0-75.0 [place] [address]-10-04 09:37:00 Test Item Value Reference Range Interpretation Comments Lymphocytes (test code = Lymphocytes) 12.0 20.0-40.0 [place] [address]-10-04 09:37:00 Test Item Value Reference Range Interpretation Comments Monocytes (test code = Monocytes) 11.7 2.0-12.0 [place] [address]-10-04 09:37:00 Test Item Value Reference Range Interpretation Comments Eosinophils (test code = 1.6 See_Comment [A utomated message] The Eosinophils) system which ge nerated this result tra nsmitted reference range : <=4.0. The reference r jose guadalupe was not used to int erpret this result as normal/abnormal . [place] [address]-10-04 09:37:00 Test Item Value Reference Range Interpretation Comments Basophils (test code = 0.2 See_Comment [Aut omated message] The Basophils) system which ge nerated this result tra nsmitted reference range : <=1.0. The reference r jose guadalupe was not used to int erpret this result as normal/abnormal . [facility] StephenvilleXpnwnfhYSNADEWBBW0923-15-10 09:37:00 Test Item Value Reference Range Interpretation Comments Neutrophils # (test code = Neutrophils 9.7 1.5-8.1 #) [facility] StephenvilleTdaitbkOSUQJDIXCE0752-67-89 09:37:00 Test Item Value Reference Range Interpretation Comments Lymphocytes # (test code = Lymphocytes 1.6 1.0-5.5 #) [place] 046660-10-04 09:37:00 Test Item Value Reference Range Interpretation Comments Monocytes # (test code 1.5 See_Comment [Aut omated message] The = Monocytes #) system which generated this result tra nsmitted reference range : <=0.8. The reference r jose guadalupe was not used to int erpret this result as normal/abnormal . [facility] StephenvilleBqvhrgpKTKYEVBKWW4499-01-38 09:37:00 Test Item Value Reference Range Interpretation Comments Eosinophils # (test code 0.2 See_Comment [A utomated message] The = Eosinophils #) system whic h generated this result tra nsmitted reference range : <=0.5. The reference r jose guadalupe was not used to int erpret this result as normal/abnormal . [facility] StephenvilleDtusooyRISKFZMOMP8459-88-68 09:37:00 Test Item Value Reference Range Interpretation Comments WBC (test code = WBC) 13.0 3.7-10.4 [facility] StephenvilleYsczvthYFZCMBCLWE9975-61-34 09:37:00 Test Item Value Reference Range Interpretation Comments RBC (test code = RBC) 3.37 4.70-6.10 [place] 046660-10-04 09:37:00 Test Item Value Reference Range Interpretation Comments Hgb (test code = Hgb) 11.5 14.0-18.0 [place] 046660-10-04 09:37:00 Test Item Value Reference Range Interpretation Comments Hct (test code = Hct) 33.6 42.0-54.0 [place] 046660-10-04 09:37:00 Test Item Value Reference Range Interpretation Comments MCV (test code = MCV) 99.7 80.0-94.0 [place] [address]-10-04 09:37:00 Test Item Value Reference Range Interpretation Comments MCH (test code = MCH) 34.2 pg 27.0-31.0 [place] [address]-10-03 09:35:00 Test Item Value Reference Range Interpretation Comments Glucose Lvl (test code = Glucose Lvl) 97 70-99 [place] [address]-10-03 09:35:00 Test Item Value Reference Range Interpretation Comments BUN (test code = BUN) 8 7-22 [place] [address]-10-03 09:35:00 Test Item Value Reference Range Interpretation Comments Creatinine Lvl (test code = Creatinine 0.64 0.50-1.40 Lvl) [place] [address]-10-03 09:35:00 Test Item Value Reference Range Interpretation Comments Sodium Lvl (test code = Sodium Lvl) 134 135-145 [place] [address]-10-03 09:35:00 Test Item Value Reference Range Interpretation Comments Potassium Lvl (test code = Potassium 3.4 3.5-5.1 Lvl) [place] [address]-10-03 09:35:00 Test Item Value Reference Range Interpretation Comments Chloride Lvl (test code = Chloride Lvl) 100 95-109 [place] [address]-10-03 09:35:00 Test Item Value Reference Range Interpretation Comments CO2 (test code = CO2) 25 24-32 [place] [address]-10-03 09:35:00 Test Item Value Reference Range Interpretation Comments Calcium Lvl (test code = Calcium Lvl) 7.9 8.5-10.5 [place] [address]-10-03 09:35:00 Test Item Value Reference Range Interpretation Comments Total Protein (test code = Total 6.7 6.4-8.4 Protein) [place] [address]-10-03 09:35:00 Test Item Value Reference Range Interpretation Comments Albumin Lvl (test code = Albumin Lvl) 2.5 3.5-5.0 [place] [address]-10-03 09:35:00 Test Item Value Reference Range Interpretation Comments ALT (test code = ALT) 61 See_Comment [Auto mated message] The system which ge nerated this result transmit mary carmen reference range : <=65. The reference range was not used to interpr et this result as casey l/abnormal. [facility] [id number] 09:35:00 Test Item Value Reference Range Interpretation Comments AST (test code = AST) 59 See_Comment [Auto mated message] The system which ge nerated this result transmit mary carmen reference range : <=37. The reference range was not used to interpr et this result as casey l/abnormal. [facility] [id number] 09:35:00 Test Item Value Reference Range Interpretation Comments Alk Phos (test code = Alk Phos) 81 39-136 [facility] HTWTQ5169-37-89 09:35:00 Test Item Value Reference Range Interpretation Comments Bili Total (test code = Bili Total) 1.0 0.2-1.3 [facility] HRIBE8707-19-70 09:35:00 Test Item Value Reference Range Interpretation Comments AGAP (test code = AGAP) 12.4 10.0-20.0 [facility] IPTYL2612-85-00 09:35:00 Test Item Value Reference Range Interpretation Comments B/C Ratio (test code = B/C Ratio) 12 1 6-25 [facility] YOFRP6925-92-25 09:35:00 Test Item Value Reference Range Interpretation Comments Globulin (test code = Globulin) 4.2 2.7-4.2 [facility] [id number] 09:35:00 Test Item Value Reference Range Interpretation Comments A/G Ratio (test code = A/G Ratio) 0.6 1 0.7-1.6 [facility] [id number] 09:35:00 Test Item Value Reference Range Interpretation Comments eGFR (test code = eGFR) 132 [facility] UptownYrsqrtgMIFNDMBRLP1149-92-58 09:35:00 Test Item Value Reference Range Interpretation Comments WBC (test code = WBC) 13.6 3.7-10.4 [facility] UptownIeirdeePPJHYENYPH3332-98-62 09:35:00 Test Item Value Reference Range Interpretation Comments RBC (test code = RBC) 3.46 4.70-6.10 [facility] UptownQfdjcxkFUYQVXFFKF3501-57-55 09:35:00 Test Item Value Reference Range Interpretation Comments Hgb (test code = Hgb) 12.1 14.0-18.0 [facility]QcclzveXKGXYUBJHO8890-18-31 09:35:00 Test Item Value Reference Range Interpretation Comments Hct (test code = Hct) 34.4 42.0-54.0 [place] 046660-10-03 09:35:00 Test Item Value Reference Range Interpretation Comments MCV (test code = MCV) 99.3 80.0-94.0 [place] 046660-10-03 09:35:00 Test Item Value Reference Range Interpretation Comments MCH (test code = MCH) 34.9 pg 27.0-31.0 [facility]villeTcbvauyGJXHOEKCAG8604-96-14 09:35:00 Test Item Value Reference Range Interpretation Comments MCHC (test code = MCHC) 35.1 32.0-36.0 [facility]villeOafztxeLHVHQWCUJH2938-67-93 09:35:00 Test Item Value Reference Range Interpretation Comments RDW (test code = RDW) 12.9 11.5-14.5 [facility]villeItmwqpsDRSXWBFBCA3508-02-95 09:35:00 Test Item Value Reference Range Interpretation Comments Platelet (test code = Platelet) 143 133-450 [facility] StephenvilleRzizkfdCFWPLXNQCR8017-95-48 09:35:00 Test Item Value Reference Range Interpretation Comments MPV (test code = MPV) 7.4 7.4-10.4 [facility] StephenvilleIqdnglrHYKQQDCCDA1971-81-53 09:35:00 Test Item Value Reference Range Interpretation Comments Segs (test code = Segs) 81.3 45.0-75.0 [facility] StephenvilleCfgvpqtTUVBHRMDPX0617-93-32 09:35:00 Test Item Value Reference Range Interpretation Comments Lymphocytes (test code = Lymphocytes) 8.6 20.0-40.0 [place] [address]-10-03 09:35:00 Test Item Value Reference Range Interpretation Comments Monocytes (test code = Monocytes) 9.7 2.0-12.0 [place] [address]-10-03 09:35:00 Test Item Value Reference Range Interpretation Comments Eosinophils (test code = 0.2 See_Comment [A utomated message] The Eosinophils) system which ge nerated this result tra nsmitted reference range : <=4.0. The reference r jose guadalupe was not used to int erpret this result as normal/abnormal . [facility]villeHnahhbxGWQAQLAFBB7233-00-17 09:35:00 Test Item Value Reference Range Interpretation Comments Basophils (test code = 0.2 See_Comment [Aut omated message] The Basophils) system which ge nerated this result tra nsmitted reference range : <=1.0. The reference r jose guadalupe was not used to int erpret this result as normal/abnormal . [facility] StephenvilleDheenrfLTUNDVEDSZ5216-46-49 09:35:00 Test Item Value Reference Range Interpretation Comments Neutrophils # (test code = Neutrophils 11.1 1.5-8.1 #) [facility] StephenvilleMkaeqhcPOSQQBTIKE8953-11-13 09:35:00 Test Item Value Reference Range Interpretation Comments Lymphocytes # (test code = Lymphocytes 1.2 1.0-5.5 #) [place] [address]-10-03 09:35:00 Test Item Value Reference Range Interpretation Comments Monocytes # (test code 1.3 See_Comment [Aut omated message] The = Monocytes #) system which generated this result tra nsmitted reference range : <=0.8. The reference r jose guadalupe was not used to int erpret this result as normal/abnormal . [facility] [id number] 09:35:00 Test Item Value Reference Range Interpretation Comments BUN (test code = BUN) 8 7-22 [facility] [id number] 09:35:00 Test Item Value Reference Range Interpretation Comments Creatinine Lvl (test code = Creatinine 0.64 0.50-1.40 Lvl) [facility]2020-10-03 09:35:00 Test Item Value Reference Range Interpretation Comments Sodium Lvl (test code = Sodium Lvl) 134 135-145 [facility] [id number] 09:35:00 Test Item Value Reference Range Interpretation Comments Potassium Lvl (test code = Potassium 3.4 3.5-5.1 Lvl) [facility] [id number] 09:35:00 Test Item Value Reference Range Interpretation Comments Chloride Lvl (test code = Chloride Lvl) 100 95-109 [facility] [id number] 09:35:00 Test Item Value Reference Range Interpretation Comments CO2 (test code = CO2) 25 24-32 [facility] [id number] 09:35:00 Test Item Value Reference Range Interpretation Comments Calcium Lvl (test code = Calcium Lvl) 7.9 8.5-10.5 [facility] [id number] 09:35:00 Test Item Value Reference Range Interpretation Comments Total Protein (test code = Total 6.7 6.4-8.4 Protein) [facility] [employer] [id number] 09:35:00 Test Item Value Reference Range Interpretation Comments Albumin Lvl (test code = Albumin Lvl) 2.5 3.5-5.0 [facility] [employer] [id number] 09:35:00 Test Item Value Reference Range Interpretation Comments ALT (test code = ALT) 61 See_Comment [Auto mated message] The system which ge nerated this result transmit mary carmen reference range : <=65. The reference range was not used to interpr et this result as casey l/abnormal. [facility] [employer] [id number] 09:35:00 Test Item Value Reference Range Interpretation Comments AST (test code = AST) 59 See_Comment [Auto mated message] The system which ge nerated this result transmit mary carmen reference range : <=37. The reference range was not used to interpr et this result as casey l/abnormal. [facility] [employer] [id number] 09:35:00 Test Item Value Reference Range Interpretation Comments Alk Phos (test code = Alk Phos) 81 39-136 [facility] [employer] [id number] 09:35:00 Test Item Value Reference Range Interpretation Comments Bili Total (test code = Bili Total) 1.0 0.2-1.3 [facility] [employer] [id number] 09:35:00 Test Item Value Reference Range Interpretation Comments AGAP (test code = AGAP) 12.4 10.0-20.0 [facility] [employer] [id number] 09:35:00 Test Item Value Reference Range Interpretation Comments B/C Ratio (test code = B/C Ratio) 12 1 6-25 [facility] [employer] [id number] 09:35:00 Test Item Value Reference Range Interpretation Comments Globulin (test code = Globulin) 4.2 2.7-4.2 [facility] [employer] [id number] 09:35:00 Test Item Value Reference Range Interpretation Comments A/G Ratio (test code = A/G Ratio) 0.6 1 0.7-1.6 [facility] [employer] [id number] 09:35:00 Test Item Value Reference Range Interpretation Comments eGFR (test code = eGFR) 132 [facility] StephenvilleXgtuaayOFZJCSKLAT3344-69-48 09:35:00 Test Item Value Reference Range Interpretation Comments WBC (test code = WBC) 13.6 3.7-10.4 [facility] StephenvilleQpulxfcBQNPKOFKVF5130-72-42 09:35:00 Test Item Value Reference Range Interpretation Comments RBC (test code = RBC) 3.46 4.70-6.10 [facility] StephenvilleJtymitpXTBNXRWIHP4455-15-79 09:35:00 Test Item Value Reference Range Interpretation Comments Hgb (test code = Hgb) 12.1 14.0-18.0 [facility] StephenvilleOdnqseiLBPJCVWZJW7535-50-14 09:35:00 Test Item Value Reference Range Interpretation Comments Hct (test code = Hct) 34.4 42.0-54.0 [facility] StephenvilleOusgwxpSLJYIGEHRD2344-23-24 09:35:00 Test Item Value Reference Range Interpretation Comments MCV (test code = MCV) 99.3 80.0-94.0 [facility] StephenvilleSkzjcxtSAAEYWXKFN1730-82-24 09:35:00 Test Item Value Reference Range Interpretation Comments MCH (test code = MCH) 34.9 pg 27.0-31.0 [facility] StephenvilleYlxoyhfKOWORBTYMI0603-75-36 09:35:00 Test Item Value Reference Range Interpretation Comments MCHC (test code = MCHC) 35.1 32.0-36.0 [facility] StephenvilleAwhswlzKOYSKTKBRH0053-43-48 09:35:00 Test Item Value Reference Range Interpretation Comments RDW (test code = RDW) 12.9 11.5-14.5 [facility] StephenvilleVnqmydjNLJANNMBEZ8364-08-79 09:35:00 Test Item Value Reference Range Interpretation Comments Platelet (test code = Platelet) 143 133-450 [facility] StephenvilleEfzmxjvIFDOSZIPGH9557-52-04 09:35:00 Test Item Value Reference Range Interpretation Comments MPV (test code = MPV) 7.4 7.4-10.4 [facility] StephenvilleNcdhcrmPBNGGVXJSV6400-36-93 09:35:00 Test Item Value Reference Range Interpretation Comments Segs (test code = Segs) 81.3 45.0-75.0 [facility] StephenvilleZgkyeeaPWOMBJJLNL7211-93-23 09:35:00 Test Item Value Reference Range Interpretation Comments Lymphocytes (test code = Lymphocytes) 8.6 20.0-40.0 [place] [address]-10-03 09:35:00 Test Item Value Reference Range Interpretation Comments Monocytes (test code = Monocytes) 9.7 2.0-12.0 [place] [address]-10-03 09:35:00 Test Item Value Reference Range Interpretation Comments Eosinophils (test code = 0.2 See_Comment [A utomated message] The Eosinophils) system which ge nerated this result tra nsmitted reference range : <=4.0. The reference r jose guadalupe was not used to int erpret this result as normal/abnormal . [place] [address]-10-03 09:35:00 Test Item Value Reference Range Interpretation Comments Basophils (test code = 0.2 See_Comment [Aut omated message] The Basophils) system which ge nerated this result tra nsmitted reference range : <=1.0. The reference r jose guadalupe was not used to int erpret this result as normal/abnormal . [place] [address]-10-03 09:35:00 Test Item Value Reference Range Interpretation Comments Neutrophils # (test code = Neutrophils 11.1 1.5-8.1 #) [place] [address]-10-03 09:35:00 Test Item Value Reference Range Interpretation Comments Lymphocytes # (test code = Lymphocytes 1.2 1.0-5.5 #) [place] [address]-10-03 09:35:00 Test Item Value Reference Range Interpretation Comments Monocytes # (test code 1.3 See_Comment [Aut omated message] The = Monocytes #) system which generated this result tra nsmitted reference range : <=0.8. The reference r jose guadalupe was not used to int erpret this result as normal/abnormal . [facility]2020-10-03 09:35:00 Test Item Value Reference Range Interpretation Comments Glucose Lvl (test code = Glucose Lvl) 97 70-99 [facility]2020-10-02 09:44:00 Test Item Value Reference Range Interpretation Comments Glucose Lvl (test code = Glucose Lvl) 122 70-99 [place] [address]-10-02 09:44:00 Test Item Value Reference Range Interpretation Comments BUN (test code = BUN) 11 7-22 [facility]2020-10-02 09:44:00 Test Item Value Reference Range Interpretation Comments Creatinine Lvl (test code = Creatinine 0.80 0.50-1.40 Lvl) [place] 594070-10-02 09:44:00 Test Item Value Reference Range Interpretation Comments Sodium Lvl (test code = Sodium Lvl) 137 135-145 [place] 594070-10-02 09:44:00 Test Item Value Reference Range Interpretation Comments Potassium Lvl (test code = Potassium 3.4 3.5-5.1 Lvl) [place] [address]-10-02 09:44:00 Test Item Value Reference Range Interpretation Comments Chloride Lvl (test code = Chloride Lvl) 103 95-109 [facility] 27694QADHF6310-32-02 09:44:00 Test Item Value Reference Range Interpretation Comments CO2 (test code = CO2) 24 24-32 [place] 594070-10-02 09:44:00 Test Item Value Reference Range Interpretation Comments Calcium Lvl (test code = Calcium Lvl) 8.0 8.5-10.5 [place] [address]-10-02 09:44:00 Test Item Value Reference Range Interpretation Comments Total Protein (test code = Total 6.5 6.4-8.4 Protein) [facility]2020-10-02 09:44:00 Test Item Value Reference Range Interpretation Comments Albumin Lvl (test code = Albumin Lvl) 2.7 3.5-5.0 [place] 594070-10-02 09:44:00 Test Item Value Reference Range Interpretation Comments ALT (test code = ALT) 76 See_Comment [Auto mated message] The system which Exacter nerated this result transmit mary carmen reference range : <=65. The reference range was not used to interpr et this result as casey l/abnormal. [facility] [id number] 09:44:00 Test Item Value Reference Range Interpretation Comments AST (test code = AST) 68 See_Comment [Auto mated message] The system which Exacter nerated this result transmit mary carmen reference range : <=37. The reference range was not used to interpr et this result as casey l/abnormal. [facility] [id number] 09:44:00 Test Item Value Reference Range Interpretation Comments Alk Phos (test code = Alk Phos) 68 39-136 [facility] [place] 299180-10-02 09:44:00 Test Item Value Reference Range Interpretation Comments Bili Total (test code = Bili Total) 1.2 0.2-1.3 [place] [address]-10-02 09:44:00 Test Item Value Reference Range Interpretation Comments AGAP (test code = AGAP) 13.4 10.0-20.0 [place] [address]-10-02 09:44:00 Test Item Value Reference Range Interpretation Comments B/C Ratio (test code = B/C Ratio) 14 1 6-[address]10-02 09:44:00 Test Item Value Reference Range Interpretation Comments Globulin (test code = Globulin) 3.8 2.7-4.2 [place] [address]-10-02 09:44:00 Test Item Value Reference Range Interpretation Comments A/G Ratio (test code = A/G Ratio) 0.7 1 0.7-1.[address]10-02 09:44:00 Test Item Value Reference Range Interpretation Comments eGFR (test code = eGFR) 120 [place] [address]-10-02 09:44:00 Test Item Value Reference Range Interpretation Comments Segs (test code = Segs) 87.2 45.0-75.0 [place] [address]-10-02 09:44:00 Test Item Value Reference Range Interpretation Comments Lymphocytes (test code = Lymphocytes) 4.9 20.0-40.0 [place] [address]-10-02 09:44:00 Test Item Value Reference Range Interpretation Comments Monocytes (test code = Monocytes) 7.7 2.0-12.0 [place] [address]-10-02 09:44:00 Test Item Value Reference Range Interpretation Comments Basophils (test code = 0.2 See_Comment [Aut omated message] The Basophils) system which ge nerated this result tra nsmitted reference range : <=1.0. The reference r jose guadalupe was not used to int erpret this result as normal/abnormal . [place] [address]-10-02 09:44:00 Test Item Value Reference Range Interpretation Comments Neutrophils # (test code = Neutrophils 16.2 1.5-8.1 #) [place] 046660-10-02 09:44:00 Test Item Value Reference Range Interpretation Comments Lymphocytes # (test code = Lymphocytes 0.9 1.0-5.5 #) [facility]villeRqyqmwaYGJXADMLUD0472-74-37 09:44:00 Test Item Value Reference Range Interpretation Comments Monocytes # (test code 1.4 See_Comment [Aut omated message] The = Monocytes #) system which generated this result tra nsmitted reference range : <=0.8. The reference r jose guadalupe was not used to int erpret this result as normal/abnormal . [facility] StephenvilleGpiehigNYJUDWPQVF0968-22-55 09:44:00 Test Item Value Reference Range Interpretation Comments WBC (test code = WBC) 18.6 3.7-10.4 [place] 046660-10-02 09:44:00 Test Item Value Reference Range Interpretation Comments RBC (test code = RBC) 3.91 4.70-6.10 [place] 046660-10-02 09:44:00 Test Item Value Reference Range Interpretation Comments Hgb (test code = Hgb) 13.5 14.0-18.0 [place] 046660-10-02 09:44:00 Test Item Value Reference Range Interpretation Comments Hct (test code = Hct) 38.7 42.0-54.0 [place] 046660-10-02 09:44:00 Test Item Value Reference Range Interpretation Comments MCV (test code = MCV) 99.0 80.0-94.0 [place] 046660-10-02 09:44:00 Test Item Value Reference Range Interpretation Comments MCH (test code = MCH) 34.5 pg 27.0-31.0 [facility] StephenvilleQmmolxcVITMJQUJZN9483-66-28 09:44:00 Test Item Value Reference Range Interpretation Comments MCHC (test code = MCHC) 34.9 32.0-36.0 [place] [address]-10-02 09:44:00 Test Item Value Reference Range Interpretation Comments RDW (test code = RDW) 13.5 11.5-14.5 [facility] StephenvilleIivhcrfADFLOXLOXT5997-16-66 09:44:00 Test Item Value Reference Range Interpretation Comments Platelet (test code = Platelet) 155 133-450 [facility] StephenvilleLolvzhaNRWNUVGTSE2787-94-49 09:44:00 Test Item Value Reference Range Interpretation Comments MPV (test code = MPV) 7.5 7.4-10.4 [facility]ownKufqvmaJDWMIX7583-02-80 09:44:00 Test Item Value Reference Range Interpretation Comments Trig (test code = Trig) 320 [facility]2020-10-02 09:44:00 Test Item Value Reference Range Interpretation Comments Glucose Lvl (test code = Glucose Lvl) 122 70-99 [place] [address]-10-02 09:44:00 Test Item Value Reference Range Interpretation Comments BUN (test code = BUN) 11 7-22 [place] 594070-10-02 09:44:00 Test Item Value Reference Range Interpretation Comments Creatinine Lvl (test code = Creatinine 0.80 0.50-1.40 Lvl) [place] 594070-10-02 09:44:00 Test Item Value Reference Range Interpretation Comments Sodium Lvl (test code = Sodium Lvl) 137 135-145 [place] 594070-10-02 09:44:00 Test Item Value Reference Range Interpretation Comments Potassium Lvl (test code = Potassium 3.4 3.5-5.1 Lvl) [place] 594070-10-02 09:44:00 Test Item Value Reference Range Interpretation Comments Chloride Lvl (test code = Chloride Lvl) 103 95-109 [place] 594070-10-02 09:44:00 Test Item Value Reference Range Interpretation Comments CO2 (test code = CO2) 24 24-32 [place] 594070-10-02 09:44:00 Test Item Value Reference Range Interpretation Comments Calcium Lvl (test code = Calcium Lvl) 8.0 8.5-10.5 [place] 594070-10-02 09:44:00 Test Item Value Reference Range Interpretation Comments Total Protein (test code = Total 6.5 6.4-8.4 Protein) [place] 594070-10-02 09:44:00 Test Item Value Reference Range Interpretation Comments Albumin Lvl (test code = Albumin Lvl) 2.7 3.5-5.0 [place] [address]-10-02 09:44:00 Test Item Value Reference Range Interpretation Comments ALT (test code = ALT) 76 See_Comment [Auto mated message] The system which ge nerated this result transmit mary carmen reference range : <=65. The reference range was not used to interpr et this result as casey l/abnormal. [facility] [id number] 09:44:00 Test Item Value Reference Range Interpretation Comments AST (test code = AST) 68 See_Comment [Auto mated message] The system which ge nerated this result transmit mary carmen reference range : <=37. The reference range was not used to interpr et this result as casey l/abnormal. [facility] [id number] 09:44:00 Test Item Value Reference Range Interpretation Comments Alk Phos (test code = Alk Phos) 68 39-136 [facility] [id number] 09:44:00 Test Item Value Reference Range Interpretation Comments Bili Total (test code = Bili Total) 1.2 0.2-1.3 [facility] [id number] 09:44:00 Test Item Value Reference Range Interpretation Comments AGAP (test code = AGAP) 13.4 10.0-20.0 [facility] [id number] 09:44:00 Test Item Value Reference Range Interpretation Comments B/C Ratio (test code = B/C Ratio) 14 1 6-25 [facility] [id number] 09:44:00 Test Item Value Reference Range Interpretation Comments Globulin (test code = Globulin) 3.8 2.7-4.2 [facility] [id number] 09:44:00 Test Item Value Reference Range Interpretation Comments A/G Ratio (test code = A/G Ratio) 0.7 1 0.7-1.6 [facility] [id number] 09:44:00 Test Item Value Reference Range Interpretation Comments eGFR (test code = eGFR) 120 [facility]ownJmkhucoXPGEAOVKHQ3067-99-08 09:44:00 Test Item Value Reference Range Interpretation Comments Segs (test code = Segs) 87.2 45.0-75.0 [facility] UptownSvzozmvWPDHYGGEFA6239-21-69 09:44:00 Test Item Value Reference Range Interpretation Comments Lymphocytes (test code = Lymphocytes) 4.9 20.0-40.0 [facility] UptownMtypmfyTLBNJWAAGI0053-79-32 09:44:00 Test Item Value Reference Range Interpretation Comments Monocytes (test code = Monocytes) 7.7 2.0-12.0 [place] 046660-10-02 09:44:00 Test Item Value Reference Range Interpretation Comments Basophils (test code = 0.2 See_Comment [Aut omated message] The Basophils) system which ge nerated this result tra nsmitted reference range : <=1.0. The reference r jose guadalupe was not used to int erpret this result as normal/abnormal . [facility]villeOqzgasbWXKOKVHDKU0121-93-83 09:44:00 Test Item Value Reference Range Interpretation Comments Neutrophils # (test code = Neutrophils 16.2 1.5-8.1 #) [facility] StephenvilleGirialvQJBAROWNBP6524-16-49 09:44:00 Test Item Value Reference Range Interpretation Comments Lymphocytes # (test code = Lymphocytes 0.9 1.0-5.5 #) [facility] StephenvilleRedqdinZRJONHKIYA6289-94-77 09:44:00 Test Item Value Reference Range Interpretation Comments Monocytes # (test code 1.4 See_Comment [Aut omated message] The = Monocytes #) system which generated this result tra nsmitted reference range : <=0.8. The reference r jose guadalupe was not used to int erpret this result as normal/abnormal . [facility] StephenvilleLrbqwepEQTPFMIFRU7545-42-25 09:44:00 Test Item Value Reference Range Interpretation Comments WBC (test code = WBC) 18.6 3.7-10.4 [facility] StephenvilleGujryukYJEIZSEAYP1137-61-48 09:44:00 Test Item Value Reference Range Interpretation Comments RBC (test code = RBC) 3.91 4.70-6.10 [facility] StephenvillePwzmpkmTITPOXURTT9923-84-02 09:44:00 Test Item Value Reference Range Interpretation Comments Hgb (test code = Hgb) 13.5 14.0-18.0 [place] [address]-10-02 09:44:00 Test Item Value Reference Range Interpretation Comments Hct (test code = Hct) 38.7 42.0-54.0 [place] 046660-10-02 09:44:00 Test Item Value Reference Range Interpretation Comments MCV (test code = MCV) 99.0 80.0-94.0 [place] [address]-10-02 09:44:00 Test Item Value Reference Range Interpretation Comments MCH (test code = MCH) 34.5 pg 27.0-31.0 [place] 046660-10-02 09:44:00 Test Item Value Reference Range Interpretation Comments MCHC (test code = MCHC) 34.9 32.0-36.0 [facility] StephenvilleKukqsdkPMHAUCTBNB6777-70-24 09:44:00 Test Item Value Reference Range Interpretation Comments RDW (test code = RDW) 13.5 11.5-14.5 [facility]rgtpzlFDLHUBLYHX7193-74-93 09:44:00 Test Item Value Reference Range Interpretation Comments Platelet (test code = Platelet) 155 133-450 [facility] HospitalZfecnbyLKYQMXLCEI4074-94-63 09:44:00 Test Item Value Reference Range Interpretation Comments MPV (test code = MPV) 7.5 7.4-10.4 [facility]ownOwptnvzHMUZGN3825-70-75 09:44:00 Test Item Value Reference Range Interpretation Comments Trig (test code = Trig) 320 [facility]2020-10-02 02:13:00 Test Item Value Reference Range Interpretation Comments Lactic Acid Lvl (test code = Lactic 1.5 0.5-2.2 Acid Lvl) [facility]2020-10-02 02:13:00 Test Item Value Reference Range Interpretation Comments Lactic Acid Lvl (test code = Lactic 1.5 0.5-2.2 Acid Lvl) [facility]ImivmtdVDXODKNOYS5882-04-76 10:58:00 Test Item Value Reference Range Interpretation Comments Coronavirus (COVID-19) Not Detected (08/23/20 DANIS (test code = 5:58 AM) Coronavirus (COVID-19) DANIS) [facility] [id number] 10:58:00 Test Item Value Reference Range Interpretation Comments Coronavirus (COVID-19) Not Detected (08/23/20 DANIS (test code = 5:58 AM) Coronavirus (COVID-19) DANIS) [facility]2020-10-01 04:50:00 Test Item Value Reference Range Interpretation Comments Lipase Lvl (test code = Lipase Lvl) 5027 79-324 [facility]RnfdxxwYWUDTVHCNK9424-22-57 04:50:00 Test Item Value Reference Range Interpretation Comments RBC Morph (test code = Normal (08/22/20 11:50 RBC Morph) PM) [facility]villeGgrvftbTBENOMLTOK8430-77-03 04:50:00 Test Item Value Reference Range Interpretation Comments Plt Morph (test code = Normal (08/22/20 11:50 Plt Morph) PM) [id number] 04:50:00 Test Item Value Reference Range Interpretation Comments Chol (test code = Chol) 174 [facility] [id number] 04:50:00 Test Item Value Reference Range Interpretation Comments Trig (test code = Trig) 711 [facility] HospitalTnewcgyTNRCYQ9311-23-79 04:50:00 Test Item Value Reference Range Interpretation Comments HDL (test code = HDL) 28 [facility] HospitalQoogzacJHNMTB5510-04-28 04:50:00 Test Item Value Reference Range Interpretation Comments CHD Risk (test code = CHD Risk) 6.21 1 4.00-7.30 [facility] [id number] 04:50:00 Test Item Value Reference Range Interpretation Comments LDL (Calculated) (test code = See Note mg/dL LDL (Calculated)) [facility] [id number] 04:50:00 Test Item Value Reference Range Interpretation Comments VLDL (test code = See Note 5*NA*(08/22/20 VLDL) 11:50 PM) [facility] [id number] 04:50:00 Test Item Value Reference Range Interpretation Comments Lipase Lvl (test code = Lipase Lvl) 5022 62-286 [facility]VbvzjbpETXAHJVWJO1275-08-52 04:50:00 Test Item Value Reference Range Interpretation Comments RBC Morph (test code = Normal (08/22/20 11:50 RBC Morph) PM) [id number] 04:50:00 Test Item Value Reference Range Interpretation Comments Plt Morph (test code = Normal (08/22/20 11:50 Plt Morph) PM) [facility] [id number] 04:50:00 Test Item Value Reference Range Interpretation Comments Chol (test code = Chol) 174 [facility] [id number] 04:50:00 Test Item Value Reference Range Interpretation Comments Trig (test code = Trig) 711 [facility] Ho[id number] 04:50:00 Test Item Value Reference Range Interpretation Comments HDL (test code = HDL) 28 [facility] HospitalMpgelnqYDJEOW0211-06-29 04:50:00 Test Item Value Reference Range Interpretation Comments CHD Risk (test code = CHD Risk) 6.21 1 4.00-7.30 [id number] 04:50:00 Test Item Value Reference Range Interpretation Comments LDL (Calculated) (test code = See Note mg/dL LDL (Calculated)) [id number] 04:50:00 Test Item Value Reference Range Interpretation Comments VLDL (test code = See Note 5*NA*(08/22/20 VLDL) 11:50 PM) [facility] Per
[2023-04-19 06:58] LABS: Absolute Lymphocytes (CBC) 1.5 K/uL (0.7-4.9); Hematocrit 47.8 % (39.6-49.0); Lymphocytes % 15.2 % (15.3-44.8); MCV 90.4 fL (80-100); MPV 6.5 fL (7.6-11.3); RBC Red Blood Cell Count 5.29 M/uL (4.33-5.43)
[2023-04-19] MEDS ORDERED: NA CHLORIDE 0.9% 2,000 ML ONE (07:00)
[2023-04-19] MEDS ORDERED: ONDANSETRON 4 MG/2 ML VIAL ONE ×2 (07:00→15:16)
[2023-04-19] MEDS ORDERED: METOCLOPRAMIDE 10 MG/2mL INJ ONE (07:00)
[2023-04-19 07:07] LABS: Specific Gravity > 1.030 (1.005-1.030); Urine Bacteria None Seen /HPF (<20); Urine Bilirubin NEGATIVE (Negative); Urine Blood Negative (Negative); Urine Clarity Clear (Clear); Urine Color Yellow (Yellow); Urine Glucose NEGATIVE (Negative); Urine Mucus 2+ /HPF (None Seen); Urine Protein 2+ (Negative); Urine Urobilinogen Normal (Normal)
[2023-04-19 07:16] LABS: Barbiturates NEGATIVE (NEGATIVE); Benzodiazepines NEGATIVE (NEGATIVE); Cocaine NEGATIVE (NEGATIVE); METHAMPHETAM NEGATIVE (NEGATIVE); Methadone NEGATIVE (NEGATIVE); Opiates NEGATIVE (NEGATIVE); Phencyclidine NEGATIVE (NEGATIVE); THC Cannibis POSITIVE (NEGATIVE)
[2023-04-19 07:21] LABS: Albumin 4.4 g/dL (3.4-5.0); Bilirubin Total 0.5 mg/dL (0.2-1.0); Potassium 3.8 mEq/L (3.5-5.1); Protein, Total 8.7 g/dL (6.4-8.2)
[2023-04-19] MEDS ORDERED: HYDROMORPHONE HCL 1 MG/ML INJ ONE ×3 (07:27→09:52)
--- NOTE | 2023-04-19 08:12 | RAD REPORT ---
EXAM DESCRIPTION: CTAbdomen Pelvis W Contrast - 04/19/2023 7:57 am CLINICAL HISTORY: ABD PAIN COMPARISON: 08/05/2022 TECHNIQUE: CT of the abdomen and pelvis was performed. All CT scans are performed using dose optimization technique as appropriate and may include automated exposure control or mA/KV adjustment according to patient size. FINDINGS: Lower chest: No acute abnormality. Liver: No acute abnormality or suspicious lesions. Hepatic steatosis. Biliary: No biliary ductal dilatation. Stomach: No significant focal abnormality. Duodenum: No significant focal abnormality. Pancreas: Acute pancreatitis with diffuse peripancreatic stranding. Spleen: No significant abnormality. Adrenal: No suspicious lesions. Kidney/ureter: No hydronephrosis. No renal calculi. Retroperitoneum: No retroperitoneal adenopathy. Vascular: No aneurysm. Bowel: No significant focal abnormality. Normal appendix . Peritoneum: No ascites or free air. Small fat containing inguinal hernias. Bladder: Grossly unremarkable. Reproductive: No adnexal masses. Bones: No acute fracture. Other: n/a IMPRESSION: Acute pancreatitis without complicating features.
--- NOTE | 2023-04-19 08:24 | ER ---
Nurse's Notes [facility] Name: Mc Barrios Age: 33 yrs Sex: Male : 1990 Arrival Date: 04/19/2023 Time: 06:21 Bed 17 Private MD: Diagnosis: Alcohol abuse;Epigastric abdominal tenderness;Alcohol induced acute pancreatitis without necrosis or infection Presentation: 04/19 06:44 Chief complaint: Patient states: upper abdominal pain of 7,onset 2 days with pf1 nausea,vomiting x 15 episodes since last night. Patient stated history of pancreatitis. Coronavirus screen: Vaccine status: Patient reports being unvaccinated. Client denies travel out of the [place] in the last 14 days. At this time, the client does not indicate any symptoms associated with coronavirus-19. Ebola Screen: Patient negative for fever greater than or equal to 101.5 degrees Fahrenheit, and additional compatible Ebola Virus Disease symptoms. Initial Sepsis Screen: Does the patient meet any 2 criteria? No. Patient's initial sepsis screen is negative. Does the patient have a suspected source of infection? No. Patient's initial sepsis screen is negative. Risk Assessment: Do you want to hurt yourself or someone else? Patient reports no desire to harm self or others. 06:44 Method Of Arrival: Ambulatory pf1 06:44 Acuity: ROSCOE 3 pf1 Historical: - Allergies: 06:48 Sulfa (Sulfonamide Antibiotics); pf1 - PMHx: 06:48 Alcoholism; Hypertension; Pancreatitis; pf1 - PSHx: 06:48 hernia repair; pf1 - Immunization history:: Adult Immunizations up to date, Client reports having NOT received the Covid vaccine. Last tetanus immunization: < 5 years ago. - Social history:: Smoking status: Reported history of juuling and/or vaping. Patient uses alcohol, street drugs, marijuana. Screenin:00 [facility] ED Fall Risk Assessment (Adult) History of falling in the last 3 months, kc6 including since admission No falls in past 3 months (0 pts) Confusion or Disorientation No (0 pts) Intoxicated or Sedated No (0 pts) Impaired Gait No (0 pts) Mobility Assist Device Used No (0 pt) Altered Elimination No (0 pt) Score/Fall Risk Level 0 - 2 = Low Risk Oriented to surroundings, Maintained a safe environment, Educated pt \T\ family on fall prevention, incl call for assistance when getting out of bed, Assessed \T\ reinforced patient's understanding of fall precautions, Hourly rounding (assess needs \T\ fall precautionary measures) done. Abuse screen: Denies threats or abuse. Denies injuries from another. Nutritional screening: No deficits noted. Tuberculosis screening: No symptoms or risk factors identified. Assessment: 07:00 General: Appears in no apparent distress. uncomfortable, Behavior is calm, cooperative, kc6 appropriate for age. Pain: Complains of pain in abdomen Pain currently is 10 out of 10 on a pain scale. Neuro: Waters Agitation-Sedation Scale (RASS): 0 - Alert and Calm Level of Consciousness is awake, alert, obeys commands, Oriented to person, place, time, situation, Appropriate for age. Cardiovascular: Capillary refill < 3 seconds. Respiratory: Airway is patent Trachea midline Respiratory effort is even, unlabored, Respiratory pattern is regular, symmetrical. GI: Abdomen is flat, non-distended, Pt is actively vomiting clear fluid, Bowel sounds present X 4 quads. Abd is soft X 4 quads Abdomen is tender to palpation X 4 quads. Reports nausea, vomiting. : No signs and/or symptoms were reported regarding the genitourinary system. EENT: No signs and/or symptoms were reported regarding the EENT system. Derm: No signs and/or symptoms reported regarding the dermatologic system. Skin is intact, Skin is diaphoretic, Skin is normal, Skin temperature is warm. Musculoskeletal: No signs and/or symptoms reported regarding the musculoskeletal system. Circulation, motion, and sensation intact. Capillary refill < 3 seconds, Range of motion: intact in all extremities. 08:00 Reassessment: Patient appears in no apparent distress at this time. No changes from kc6 previously documented assessment. Patient and/or family updated on plan of care and expected duration. Pain level reassessed. Patient is alert, oriented x 3, equal unlabored respirations, skin warm/dry/pink. 09:00 Reassessment: Patient appears in no apparent distress at this time. No changes from kc6 previously documented assessment. Patient and/or family updated on plan of care and expected duration. Pain level reassessed. Patient is alert, oriented x 3, equal unlabored respirations, skin warm/dry/pink. 10:00 Reassessment: Patient appears in no apparent distress at this time. No changes from kc6 previously documented assessment. Patient and/or family updated on plan of care and expected duration. Pain level reassessed. Patient is alert, oriented x 3, equal unlabored respirations, skin warm/dry/pink. 11:00 Reassessment: Patient appears in no apparent distress at this time. No changes from kc6 previously documented assessment. Patient and/or family updated on plan of care and expected duration. Pain level reassessed. Patient is alert, oriented x 3, equal unlabored respirations, skin warm/dry/pink. 11:00 Reassessment: please see [facility] for further charting. kc6 Vital Signs: 06:44 BP 152 / 110; Pulse 78; Resp 18; Temp 98; Pulse Ox 99% on R/A; Weight 122.47 kg; Height pf1 6 ft. 3 in. ; Pain 7/10; 07:15 BP 164 / 111; Pulse 90; Resp 19 S; Pulse Ox 97% on R/A; Pain 10/10; kc6 08:54 BP 137 / 83; Pulse 83; Resp 18 S; Pulse Ox 93% on R/A; Pain 6/10; kc6 09:47 BP 140 / 94; Pulse 82; Resp 19 S; Pulse Ox 99% on R/A; Pain 6/10; kc6 06:44 Body Mass Index 33.75 (122.47 kg, 190.5 cm) pf1 06:44 Pain Scale: Adult pf1 07:15 Pain Scale: Adult kc6 08:54 Pain Scale: Adult kc6 09:47 Pain Scale: Adult kc6 ED Course: 06:24 Patient arrived in ED. jj6 06:43 Inserted saline lock: 20 gauge in right antecubital area, using aseptic technique. rv1 Blood collected. 06:48 Triage completed. pf1 06:53 CBC with Diff Sent. rv1 06:53 CMP Sent. rv1 06:53 Lipase Sent. rv1 06:57 Urine Drug Screen Sent. rv1 06:57 CBC with Diff Sent. rv1 06:57 Urinalysis w/ reflexes Sent. rv1 07:00 Patient has correct armband on for positive identification. Placed in gown. Bed in low kc6 position. Call light in reach. Side rails up X 1. Adult w/ patient. 07:00 Arm band placed on. kc6 07:10 Diego Pearson MD is Attending Physician. cris 07:59 CT Abd/Pelvis - IV Contrast Only In Process Unspecified. EDMS 08:23 Arnold Rivas MD is Hospitalizing Provider. cris 18:17 No provider procedures requiring assistance completed. Patient admitted, IV remains in kc6 place. Administered Medications: 07:03 Drug: Ondansetron IVP 4 mg Route: IVP; Site: right antecubital; jb4 08:54 Follow up: Response: No adverse reaction; Nausea unchanged kc6 07:04 Drug: NS 0.9% IV 1000 ml Route: IV; Rate: 1 bolus; Site: right antecubital; jb4 08:55 Follow up: Response: No adverse reaction; IV Status: Completed infusion kc6 07:04 Drug: metoCLOPramide IVP 10 mg Route: IVP; Site: right antecubital; jb4 08:54 Follow up: Response: No adverse reaction; Nausea is decreased kc6 07:04 Drug: NS 0.9% IV 1000 ml Route: IV; Rate: 1 bolus; Site: right antecubital; jb4 08:55 Follow up: Response: No adverse reaction; IV Status: Completed infusion kc6 07:26 Drug: HYDROmorphone IVP 1 mg Route: IVP; Site: right antecubital; kc6 08:55 Follow up: Response: No adverse reaction; Pain is decreased; RASS: Alert and Calm (0) kc6 08:47 Drug: HYDROmorphone IVP 1 mg Route: IVP; Site: right antecubital; kc6 09:29 Follow up: Response: No adverse reaction; Pain is unchanged, physician notified; RASS: kc6 Alert and Calm (0) 08:47 Drug: Ativan IVP 1 mg Route: IVP; Site: right antecubital; kc6 09:29 Follow up: Response: No adverse reaction; Anxiety decreased; RASS: Alert and Calm (0) kc6 08:47 Drug: Thiamine IV 100 mg Route: IV; Rate: bolus; Site: right antecubital; kc6 09:30 Follow up: Response: No adverse reaction; IV Status: Completed infusion; IV Intake: 1ml kc6 08:47 Drug: NS 0.9% IV 1000 ml Route: IV; Rate: 1 bolus; Site: right antecubital; kc6 12:23 Follow up: Response: No adverse reaction; IV Status: Completed infusion; IV Intake: kc6 1000ml 09:29 Drug: Banana Bag - (NS 0.9% IV 1000 ml, foLIC Acid IVPB 1 mg, Thiamine IV 100 mg, kc6 Multivitamin IV 1 amp) Route: IV; Rate: 150 ml/hr; Site: right antecubital; 12:23 Follow up: Response: No adverse reaction; IV Status: Completed infusion; IV Intake: kc6 1000ml 09:46 Drug: HYDROmorphone IVP 1 mg Route: IVP; Site: right antecubital; kc6 12:24 Follow up: Response: No adverse reaction; Pain is unchanged, physician notified; RASS: kc6 Alert and Calm (0) Medication: 18:17 VIS not applicable for this client. kc6 Intake: 09:30 IV: 1ml; Total: 1ml. kc6 12:23 IV: 1000ml; Total: 1001ml. kc6 12:23 IV: 1000ml; Total: 2001ml. kc6 Outcome: 08:24 Decision to Hospitalize by Provider. cris 18:17 Admitted to Med/surg accompanied by tech, via wheelchair, room 405, with chart, Report kc6 called to Raegan Laureano RN 18:17 Condition: stable 18:17 Instructed on the need for admit. 18:27 Patient left the ED. kc6 Signatures: Dispatcher [employer] EDDiego Jung MD MD cha Bryson, James RN RN jb4 Dawn Tejeda6 Leilani Bess RN RN july6 Chastity Flynn RN RN pf1 Nataly Heller [facility]
--- NOTE | 2023-04-19 08:25 | EDPHYS ---
Physician Documentation [facility] Name: Mc Barrios Age: 33 yrs Sex: Male : 1990 Arrival Date: 04/19/2023 Time: 06:21 Bed 17 Private MD: ED Physician Diego Pearson HPI: 04/19 08:05 This 33 yrs old Male presents to ER via Ambulatory with complaints of cris Abdominal Pain, Nausea/Vomiting. 08:05 The patient presents to the emergency department with nausea, vomiting. cris Historical: - Allergies: 06:48 Sulfa (Sulfonamide Antibiotics); pf1 - PMHx: 06:48 Alcoholism; Hypertension; Pancreatitis; pf1 - PSHx: 06:48 hernia repair; pf1 - Immunization history:: Adult Immunizations up to date, Client reports having NOT received the Covid vaccine. Last tetanus immunization: < 5 years ago. - Social history:: Smoking status: Reported history of juuling and/or vaping. Patient uses alcohol, street drugs, marijuana. ROS: 08:19 Constitutional: Negative for fever, chills, and weight loss, Eyes: Negative for injury, cris pain, redness, and discharge, ENT: Negative for injury, pain, and discharge, Neck: Negative for injury, pain, and swelling, Cardiovascular: Negative for chest pain, palpitations, and edema, Respiratory: Negative for shortness of breath, cough, wheezing, and pleuritic chest pain, Back: Negative for injury and pain, : Negative for injury, bleeding, discharge, and swelling, MS/Extremity: Negative for injury and deformity, Skin: Negative for injury, rash, and discoloration, Neuro: Negative for headache, weakness, numbness, tingling, and seizure, Psych: Negative for depression, anxiety, suicide ideation, homicidal ideation, and hallucinations, Allergy/Immunology: Negative for hives, rash, and allergies, Endocrine: Negative for neck swelling, polydipsia, polyuria, polyphagia, and marked weight changes, Hematologic/Lymphatic: Negative for swollen nodes, abnormal bleeding, and unusual bruising. 08:19 Abdomen/GI: Positive for abdominal pain, nausea and vomiting, of the epigastric area, right upper quadrant and left upper quadrant. Exam: 08:19 Constitutional: This is a well developed, well nourished patient who is awake, alert, cris and in no acute distress. Head/Face: Normocephalic, atraumatic. Eyes: Pupils equal round and reactive to light, extra-ocular motions intact. Lids and lashes normal. Conjunctiva and sclera are non-icteric and not injected. Cornea within normal limits. Periorbital areas with no swelling, redness, or edema. ENT: Nares patent. No nasal discharge, no septal abnormalities noted. Tympanic membranes are normal and external auditory canals are clear. Oropharynx with no redness, swelling, or masses, exudates, or evidence of obstruction, uvula midline. Mucous membranes moist. Neck: Trachea midline, no thyromegaly or masses palpated, and no cervical lymphadenopathy. Supple, full range of motion without nuchal rigidity, or vertebral point tenderness. No Meningismus. Chest/axilla: Normal chest wall appearance and motion. Nontender with no deformity. No lesions are appreciated. Cardiovascular: Regular rate and rhythm with a normal S1 and S2. No gallops, murmurs, or rubs. Normal PMI, no JVD. No pulse deficits. Respiratory: Lungs have equal breath sounds bilaterally, clear to auscultation and percussion. No rales, rhonchi or wheezes noted. No increased work of breathing, no retractions or nasal flaring. Back: No spinal tenderness. No costovertebral tenderness. Full range of motion. Male : Normal genitalia with no discharge or lesions. Skin: Warm, dry with normal turgor. Normal color with no rashes, no lesions, and no evidence of cellulitis. MS/ Extremity: Pulses equal, no cyanosis. Neurovascular intact. Full, normal range of motion. Neuro: Awake and alert, GCS 15, oriented to person, place, time, and situation. Cranial nerves II-XII grossly intact. Motor strength 5/5 in all extremities. Sensory grossly intact. Cerebellar exam normal. Normal gait. Psych: Awake, alert, with orientation to person, place and time. Behavior, mood, and affect are within normal limits. 08:19 Abdomen/GI: Inspection: abdomen appears normal, Bowel sounds: normal, in all quadrants, Palpation: moderate abdominal tenderness, Liver: no appreciated palpable abnormalities, Hernia: not appreciated. Vital Signs: 06:44 BP 152 / 110; Pulse 78; Resp 18; Temp 98; Pulse Ox 99% on R/A; Weight 122.47 kg; Height pf1 6 ft. 3 in. ; Pain 7/10; 07:15 BP 164 / 111; Pulse 90; Resp 19 S; Pulse Ox 97% on R/A; Pain 10/10; kc6 08:54 BP 137 / 83; Pulse 83; Resp 18 S; Pulse Ox 93% on R/A; Pain 6/10; kc6 09:47 BP 140 / 94; Pulse 82; Resp 19 S; Pulse Ox 99% on R/A; Pain 6/10; kc6 06:44 Body Mass Index 33.75 (122.47 kg, 190.5 cm) pf1 06:44 Pain Scale: Adult pf1 07:15 Pain Scale: Adult kc6 08:54 Pain Scale: Adult kc6 09:47 Pain Scale: Adult kc6 MDM: 07:11 Patient medically screened. [facility] 08:22 Differential diagnosis: Nonspecific abd pain, gastritis, cholecystitis, pancreatitis, cris appendicitis, diverticulitis, viral gastroenteritis, gastroenteritis. Data reviewed: vital signs, nurses notes, lab test result(s), radiologic studies, CT scan. Consideration of Admission/Observation Patient was admitted/placed on observation. Escalation of care including admission/observation considered. I considered the following discharge prescriptions or medication management in the emergency department Medications were administered in the Emergency Department. See MAR. Test considered but Not performed: Ultrasound no gb usg. Care significantly affected by the following chronic conditions: Hypertension, alcoholism , pancreatitis. 04/19 06:47 Order name: CBC with Diff; Complete Time: 07:13 sp 04/19 06:47 Order name: CMP; Complete Time: 08:03 sp4 04/19 06:47 Order name: Lipase; Complete Time: 08:03 sp4 04/19 06:47 Order name: Urinalysis w/ reflexes; Complete Time: 07:13 sp4 04/19 06:47 Order name: Urine Drug Screen; Complete Time: 08:03 sp4 04/19 09:56 Order name: Lipid Profile; Complete Time: 17:49 [facility] 04/19 10:14 Order name: CBC with Automated Diff EDMS 04/19 10:14 Order name: CBC with Automated Diff EDMS 04/19 10:14 Order name: Comprehensive Metabolic Panel EDMS 04/19 10:14 Order name: Comprehensive Metabolic Panel EDMS 04/19 10:14 Order name: Lipase EDMS 04/19 10:14 Order name: Lipase EDMS 04/19 10:14 Order name: Protime (+INR) EDMS 04/19 10:14 Order name: Protime (+INR) EDMS 04/19 10:14 Order name: PTT, Activated Partial Thromb EDMS 04/19 10:14 Order name: PTT, Activated Partial Thromb EDMS 04/19 07:13 Order name: CT Abd/Pelvis - IV Contrast Only; Complete Time: 08:19 cris 04/19 10:14 Order name: NPO EDMS 04/19 06:47 Order name: IV Saline Lock; Complete Time: 06:47 sp4 04/19 06:47 Order name: Labs collected and sent; Complete Time: 06:47 sp4 Administered Medications: 07:03 Drug: Ondansetron IVP 4 mg Route: IVP; Site: right antecubital; jb4 08:54 Follow up: Response: No adverse reaction; Nausea unchanged kc6 07:04 Drug: NS 0.9% IV 1000 ml Route: IV; Rate: 1 bolus; Site: right antecubital; jb4 08:55 Follow up: Response: No adverse reaction; IV Status: Completed infusion kc6 07:04 Drug: metoCLOPramide IVP 10 mg Route: IVP; Site: right antecubital; jb4 08:54 Follow up: Response: No adverse reaction; Nausea is decreased kc6 07:04 Drug: NS 0.9% IV 1000 ml Route: IV; Rate: 1 bolus; Site: right antecubital; jb4 08:55 Follow up: Response: No adverse reaction; IV Status: Completed infusion kc6 07:26 Drug: HYDROmorphone IVP 1 mg Route: IVP; Site: right antecubital; kc6 08:55 Follow up: Response: No adverse reaction; Pain is decreased; RASS: Alert and Calm (0) kc6 08:47 Drug: HYDROmorphone IVP 1 mg Route: IVP; Site: right antecubital; kc6 09:29 Follow up: Response: No adverse reaction; Pain is unchanged, physician notified; RASS: kc6 Alert and Calm (0) 08:47 Drug: Ativan IVP 1 mg Route: IVP; Site: right antecubital; kc6 09:29 Follow up: Response: No adverse reaction; Anxiety decreased; RASS: Alert and Calm (0) kc6 08:47 Drug: Thiamine IV 100 mg Route: IV; Rate: bolus; Site: right antecubital; kc6 09:30 Follow up: Response: No adverse reaction; IV Status: Completed infusion; IV Intake: 1ml kc6 08:47 Drug: NS 0.9% IV 1000 ml Route: IV; Rate: 1 bolus; Site: right antecubital; kc6 12:23 Follow up: Response: No adverse reaction; IV Status: Completed infusion; IV Intake: kc6 1000ml 09:29 Drug: Banana Bag - (NS 0.9% IV 1000 ml, foLIC Acid IVPB 1 mg, Thiamine IV 100 mg, kc6 Multivitamin IV 1 amp) Route: IV; Rate: 150 ml/hr; Site: right antecubital; 12:23 Follow up: Response: No adverse reaction; IV Status: Completed infusion; IV Intake: kc6 1000ml 09:46 Drug: HYDROmorphone IVP 1 mg Route: IVP; Site: right antecubital; kc6 12:24 Follow up: Response: No adverse reaction; Pain is unchanged, physician notified; RASS: kc6 Alert and Calm (0) Disposition Summary: 04/19/23 08:24 Hospitalization Ordered Hospitalization Status: Inpatient Admission cris Provider: [facility]ivas [facility] Condition: Stable cris Problem: new cris Symptoms: have improved cris Bed/Room Type: Standard [facility] Room Assignment: 405(04/19/23 17:59) eb Diagnosis - Alcohol abuse cris - Epigastric abdominal tenderness cris - Alcohol induced acute pancreatitis without necrosis or infection cris Forms: - Medication Reconciliation Form cris - SBAR form cris Signatures: Dispatcher [employer] Diego Turner MD MD cha Mickail, Joel, PA PA jmm Bryson, James, RN RN jb4 Barb Hyatt Kaitlyn, RN RN july6 Chastity Flynn RN RN pf1 Burt Knight MD MD sp4 Corrections: (The following items were deleted from the chart) 17:59 08:24 cris eb
[2023-04-19] MEDS ORDERED: THIAMINE 200 MG/2 ML INJ ONE (08:44)
[2023-04-19] MEDS ORDERED: NA CHLORIDE 0.9% 1,000 ML ONE ×3 (08:45→18:03)
[2023-04-19] MEDS ORDERED: LORazepam 2 MG/ML VIAL ONE (08:45)
[2023-04-19] MEDS: FOLIC ACID 1 MG, MULTIVITAMINS INJ 10 ML, THIAMINE HCL 100 MG in NA CHLORIDE 0.9% 1,000 ML IV SCH (09:00)
[2023-04-19] MEDS ORDERED: chlordiazePOXIDE HCl 25 MG CAP PO ONE (10:09)
[2023-04-19] MEDS ORDERED: ACETAMINOPHEN 500 MG TAB PO PRN (10:09)
[2023-04-19] MEDS: ONDANSETRON 4 MG/2 ML VIAL IV PRN ×3 (10:40→20:03)
[2023-04-19] MEDS: NA CHLORIDE 0.9% 1,000 ML IV SCH ×2 (11:00→17:40)
[2023-04-19] MEDS: MORPHINE 4 MG/ML SYR IV PRN ×2 (11:09→16:37)
[2023-04-19] MEDS ORDERED: MORPHINE 4 MG/ML SYR ONE ×2 (11:10→16:37)
[2023-04-19] MEDS ORDERED: ACETAMINOPHEN 500 MG TAB ONE (11:49)
[2023-04-19] MEDS ORDERED: FENTANYL CITR 100 MCG/2 ML IV ONE ×2 (12:44→13:57)
[2023-04-19] MEDS ORDERED: chlordiazePOXIDE HCl 5 MG CAP PO SCH (14:00)
[2023-04-19] MEDS ORDERED: chlordiazePOXIDE HCl 5 MG CAP PO ONE (14:07)
[2023-04-19 18:51] VITALS: BMI 34.9
--- NOTE | 2023-04-19 18:55 | P.HP ---
Certification for Inpatient Patient admitted to: Inpatient With expected LOS: >2 Midnights Patient will require the following post-hospital care: None Practitioner: I am a practitioner with admitting privileges, knowledge of patient current condition, hospital course, and medical plan of care. Services: Services provided to patient in accordance with Admission requirements found in Title 42 Section 412.3 of the Code of Federal Regulations Patient History Date of Service: 04/19/23 Reason for admission: Acute pancreatitis History of Present Illness: Patient is a 33-year-old gentleman who came to the hospital with abdominal pain. Patient was having epigastric tenderness and was found to have acute pancreatitis. Patient has a history of alcohol abuse. Patient has had prior admission for pancreatitis. At this time, patient will be admitted to the hospital for further evaluation. Allergies Sulfa (Sulfonamide Antibiotics) Allergy (Verified 12/17/20 13:21) UNK Home Medications: Fluoxetine HCl [Prozac] 40 mg PO DAILY 04/19/23 - Past Medical/Surgical History Diabetic: No -: HTN -: pancreatitis -: ETOH withdrawal -: Hernia repair - Social History Alcohol use: Yes CD- Drugs: Yes Review of Systems 10-point ROS is otherwise unremarkable Physical Examination - Vital Signs Temperature: 98.6 F Blood Pressure: 166/89 Pulse: 76 Respirations: 18 Pulse Ox (%): 97 - Physical Exam General: Alert, In no apparent distress, Oriented x3 HEENT: Atraumatic, PERRLA, Mucous membr. moist/pink, EOMI, Sclerae nonicteric Neck: Supple, 2+ carotid pulse no bruit, No LAD, Without JVD or thyroid abnormality Respiratory: Clear to auscultation bilaterally, Normal air movement Cardiovascular: Regular rate/rhythm, Normal S1 S2, No murmurs Gastrointestinal: Normal bowel sounds, Soft and benign, Non-distended, No rebound, No guarding, Tenderness Musculoskeletal: No clubbing, No swelling, No tenderness Integumentary: No rashes Neurological: Normal gait, Normal speech, Normal strength at 5/5 x4 extr, Normal tone, Sensation intact, Cranial nerves 3-12 intact, Normal affect Lymphatics: No axilla or inguinal lymphadenopathy - Studies Laboratory Data (last 24 hrs) 04/19/23 06:50: Sodium 139, Potassium 3.8, BUN 15, Creatinine 1.00, Glucose 193 H, Total Bilirubin 0.5, AST 33, ALT 70 H, Alkaline Phosphatase 93, Lipase 515 H 04/19/23 06:50: WBC 9.90, Hgb 16.2, Hct 47.8, Plt Count 365 Assessment & Plan - Problems (Diagnosis) (1) Acute alcohol intoxication Current Visit: No Status: Acute (2) Acute on chronic pancreatitis Current Visit: No Status: Acute (3) Hypertension Current Visit: No Status: Acute - Plan Plan: 1. IV hydration 2. Pain control 3. N.p.o. 4. Monitor LFTs and lipase 5. Delirium tremens prevention 6. GI and DVT prophylaxis - Advance Directives Does patient have a Living Will: No Does patient have a Durable POA for Healthcare: No
[2023-04-19] MEDS: HYDROMORPHONE HCL 1 MG/ML INJ IV PRN ×2 (20:04→23:57)
[2023-04-19] MEDS ORDERED: LORazepam 2 MG/ML VIAL IV ONE (20:45)
[2023-04-19] MEDS: chlordiazePOXIDE HCl 25 MG CAP PO SCH (23:56)
[2023-04-20] MEDS: ONDANSETRON 4 MG/2 ML VIAL IV PRN ×5 (02:14→23:49)
[2023-04-20] MEDS: NA CHLORIDE 0.9% 1,000 ML IV SCH ×5 (02:16→19:52)
[2023-04-20] MEDS: HYDROMORPHONE HCL 1 MG/ML INJ IV PRN ×2 (03:59→07:57)
[2023-04-20 04:17] LABS: Absolute Lymphocytes (CBC) 1.5 K/uL (0.7-4.9); Hematocrit 40.8 % (39.6-49.0); Lymphocytes % 8.5 % (15.3-44.8); MPV 6.8 fL (7.6-11.3); RBC Red Blood Cell Count 4.48 M/uL (4.33-5.43)
[2023-04-20 04:37] LABS: Protime INR 1.04
[2023-04-20 05:04] LABS: Albumin 3.6 g/dL (3.4-5.0); Bilirubin Total 0.7 mg/dL (0.2-1.0); Potassium 3.3 mEq/L (3.5-5.1); Protein, Total 7.1 g/dL (6.4-8.2)
[2023-04-20] MEDS: chlordiazePOXIDE HCl 25 MG CAP PO SCH ×4 (05:29→23:49)
[2023-04-20] MEDS ORDERED: cloNIDine HCL 0.1 MG TAB PO PRN (07:16)
--- NOTE | 2023-04-20 07:21 | P.PN ---
Date of Service: 04/20/23 Subjective Patient continues to do well; improving Physical Examination - Vital Signs reviewed - Physical Exam General: Alert, In no apparent distress, Oriented x3 Respiratory: Clear to auscultation bilaterally, Normal air movement Cardiovascular: Regular rate/rhythm, Normal S1 S2, No murmurs Gastrointestinal: Normal bowel sounds, Soft and benign, Non-distended, No rebound, No guarding, Tenderness Musculoskeletal: No clubbing, No swelling, No tenderness Neurological: Normal gait, Normal speech, Normal strength at 5/5 x4 extr, Normal tone, Sensation intact, Cranial nerves 3-12 intact, Normal affect Assessment & Plan - Problems (Diagnosis) (1) Acute alcohol intoxication Current Visit: No Status: Acute (2) Acute on chronic pancreatitis Current Visit: No Status: Acute (3) Hypertension Current Visit: No Status: Acute - Plan Plan: 1. IV hydration 2. Pain control 3. N.p.o. 4. Monitor LFTs and lipase 5. Delirium tremens prevention 6. GI and DVT prophylaxis - Advance Directives Does patient have a Living Will: No Does patient have a Durable POA for Healthcare: No
[2023-04-20] MEDS ORDERED: METOPROLOL TARTRATE 5 MG/5 ML INJ IV STA (07:22)
[2023-04-20] MEDS ORDERED: METOPROLOL TAR 50 MG TAB PO ONE (07:30)
[2023-04-20] MEDS: FLUOXETINE 20 MG CAP PO SCH (07:57)
[2023-04-20] MEDS: FOLIC ACID 1 MG, MULTIVITAMINS INJ 10 ML, THIAMINE HCL 100 MG in NA CHLORIDE 0.9% 1,000 ML IV SCH (09:15)
[2023-04-20] MEDS ORDERED: chlordiazePOXIDE HCl 25 MG CAP PO ONE ×2 (10:30→11:15)
[2023-04-20] MEDS: HYDROMORPHONE HCL 2 MG/ML inj IV PRN ×4 (11:55→23:48)
[2023-04-20] MEDS: METOPROLOL TAR 50 MG TAB PO SCH (17:17)
[2023-04-20] MEDS ORDERED: LORazepam 2 MG/ML VIAL IV ONE (21:17)
[2023-04-21] MEDS: ONDANSETRON 4 MG/2 ML VIAL IV PRN ×4 (03:21→15:36)
[2023-04-21] MEDS: HYDROMORPHONE HCL 2 MG/ML inj IV PRN ×5 (03:21→19:50)
[2023-04-21] MEDS: METOPROLOL TAR 50 MG TAB PO SCH ×2 (05:29→17:15)
[2023-04-21] MEDS: chlordiazePOXIDE HCl 25 MG CAP PO SCH ×3 (05:29→17:15)
[2023-04-21] MEDS: NA CHLORIDE 0.9% 1,000 ML IV SCH ×4 (05:32→23:00)
[2023-04-21] MEDS: FLUOXETINE 20 MG CAP PO SCH (07:27)
[2023-04-21] MEDS: FOLIC ACID 1 MG, MULTIVITAMINS INJ 10 ML, THIAMINE HCL 100 MG in NA CHLORIDE 0.9% 1,000 ML IV SCH (09:32)
[2023-04-21] MEDS ORDERED: TEMAZEPAM 15 MG CAP PO PRN (11:10)
[2023-04-21 11:48] LABS: Absolute Lymphocytes (CBC) 2.1 K/uL (0.7-4.9); Hematocrit 37.1 % (39.6-49.0); Lymphocytes % 17.2 % (15.3-44.8); MCV 90.8 fL (80-100); MPV 6.7 fL (7.6-11.3); RBC Red Blood Cell Count 4.08 M/uL (4.33-5.43)
[2023-04-21 12:04] LABS: Albumin 3.1 g/dL (3.4-5.0); Bilirubin Total 0.8 mg/dL (0.2-1.0); Potassium 3.6 mEq/L (3.5-5.1); Protein, Total 7.1 g/dL (6.4-8.2)
[2023-04-21] MEDS: TIZANIDINE 4 MG TABLET PO SCH ×2 (19:49→21:00)
[2023-04-22] MEDS: HYDROMORPHONE HCL 2 MG/ML inj IV PRN ×4 (00:06→12:33)
[2023-04-22] MEDS: chlordiazePOXIDE HCl 25 MG CAP PO SCH ×3 (00:06→11:47)
[2023-04-22 00:42] VITALS: O2SAT 97
[2023-04-22] MEDS: NA CHLORIDE 0.9% 1,000 ML IV SCH ×3 (01:50→08:14)
[2023-04-22] MEDS: METOPROLOL TAR 50 MG TAB PO SCH (06:11)
[2023-04-22] MEDS: FLUOXETINE 20 MG CAP PO SCH (08:13)
[2023-04-22] MEDS: TIZANIDINE 4 MG TABLET PO SCH (08:13)
[2023-04-22] MEDS: FOLIC ACID 1 MG, MULTIVITAMINS INJ 10 ML, THIAMINE HCL 100 MG in NA CHLORIDE 0.9% 1,000 ML IV SCH (09:01)
[2023-04-22 10:35] LABS: Absolute Lymphocytes (CBC) 1.6 K/uL (0.7-4.9); Hematocrit 36.3 % (39.6-49.0); MCV 91.7 fL (80-100); MPV 6.8 fL (7.6-11.3); RBC Red Blood Cell Count 3.96 M/uL (4.33-5.43)
[2023-04-22 10:51] LABS: Albumin 2.9 g/dL (3.4-5.0); Bilirubin Total 0.7 mg/dL (0.2-1.0); Potassium 3.4 mEq/L (3.5-5.1); Protein, Total 6.7 g/dL (6.4-8.2)
[2023-04-22 12:59] VITALS: BP 136/87; TEMP 97.6
== END 2023-04-22 15:04 | disposition home or self-care (01) | DRG 440 ==
LOC: ER 06:21 → ERHOLD 10:09 → 4TH 18:20
PROVIDERS: ADMIT Hospitalist; ATTEND Hospitalist
DX: K85.20 Alcohol induced acute pancreatitis without necrosis or infection (principal); I10 Essential (primary) hypertension; F10.229 Alcohol dependence with intoxication, unspecified; Z88.1 Allergy status to other antibiotic agents; Z28.310 Unvaccinated for COVID-19; Z87.891 Personal history of nicotine dependence; Z79.899 Other long term (current) drug therapy
CPT/HCPCS: 36415; 74177; 80053; 80061; 80307; 81001; 83690; 85025; 85610; 85730; 96361; 96365; 96366; 96375; 99285; J1170; J2405; J2765; J3010; J3411; J7030; Q9967

== ENCOUNTER 2023-07-15 09:10 | Inpatient (IN) | payer BC ==
--- OUTSIDE RECORDS SUMMARY | 2023-07-15 09:18 | XMS REPORT | Continuity of Care Document ---
:1990 Author Organization [facility] t Address [address] [facility] [place] [address] Care Team Providers Name Role Phone Pcp, [...] 3-21 it y of with with 00:00: [place] nausea nausea Medical [place] Obesity Obesity Disease Active Univers (BMI (BMI 3-21 ity of 30-39.9) 30-39.9) 00:00: [address] Branch Pancreatit Pancreatit Disease Active U john is, is, 3-21 ity of unspecifie unspecifie [place] 00 Medical pancreatit pancreatit Br anch is type is type ACUTE ACUTE Diagnosis Active 2020-08-27 Mem oria ALCOHOLIC ALCOHOLIC 08-22 09:42:00 l PANCREATIT PANCREATIT 00:00: He rmann IS IS Active 00 08/22/2020 [facility] PANCREATIT PANCREATI Diagnosis Active 2020-08-22 Memoria IS TIS Active 08-22 22:44:00 l 08/22/2020 00:00: Bakari n [facility] 00 [place] Acute Acute Problem 2020-08-28 Memor ia pancreatit pancreatit 21:20:21 l is with is with Per uninfected uninfected necrosis, necrosis, unspecifie unspecifie d d 08/28/2020 [facility] ALCOHOL ALCOHOL Diagnosis Active 2020-08-27 Memoria INDUCED INDUCED 09:42:00 l ACUTE ACUTE [place] PANCREATIT PANCREATIT IS WITHO IS WITHO Active [facility] ACUTE ACUTE Diagnosis Active 2020-08-22 Mem oria PANCREATIT PANCREATIT 22:44:00 l IS WITH IS WITH [place] UNINFECTED UNINFECTED NECRO NECRO Active [facility] Allergies, Adverse Reactions, Alerts Allergy Allergy Status [...] sulfa sulfa Active Memoria drugs drugs l [place] Social History Social Habit Start Date Stop Date Quantity Comments Source Exposure to Not sure [facility] SARS-CoV-2 (event) Medica l Branch Tobacco use and 2022-02-10 2022-02-10 Never used [facility] exposure 00:00:00 00:00:00 Medical Branch Tobacco Comment 2022-02-10 2022-02-10 uses vape [facility] 00:00:00 00:00:00 Medical Branch Social History 2020-08-23 2020-08-23 [facility] yessy 04:06:38 04:06:38 Sex [birth year] At [birth year] [facility] [place] 00:00:00 00:00:00 Medical Branch Smoking Status Start Date Stop Date Source Never smoker [facility] Medications Ordered Filled Start Stop Current Ordering Indication Dosage Frequency Signature Comments Components Source Medication Medication Date Date Medication? Clinician (SIG) Name Name foLIC acid 2021- No [id number] 1mg Take 1 Univers 1 mg tablet -24 -24 tablet by it y of 00:00: 04:59 mouth [place] 00 :00 daily for Medical 30 days. Branch foLIC acid 2021- No [id number] 1mg Take 1 Univers 1 mg tablet 3-24 -24 tablet by it y of 00:00: 04:59 mouth [place] 00 :00 daily for Medical 30 days. [place] thiamine 2021- No [id number] 100mg Take 1 Univers 100 mg 3-24 04-09 tablet by ity of tablet 00:00: 04:59 mouth [place] 00 :00 daily for Medical 15 days. Branch thiamine 2021- No [id number] 100mg Take 1 Univers 100 mg 3-24 -09 tablet by ity of tablet 00:00: 04:59 mouth [place] 00 :00 daily for Medical 15 days. [place] buspirone Yes Take by Unive rs HCl (BUSPAR 3-23 mouth. ity of ORAL) 16:34: [address] fluoxetine Yes 40mg Take 40 mg U nivers HCl (PROZAC 3-23 by mouth. ity of ORAL) 16:34: [address] LISINOPRIL Yes 20mg Take 20 mg U nivers ORAL 3-23 by mouth. ity of 16:34: [address] hydroxyzine Yes Take by Uni vers pamoate 3-23 mouth. ity of (VISTARIL 16:34: [address] buspirone Yes Take by Unive rs HCl (BUSPAR 3-23 mouth. ity of ORAL) 16:34: [address] fluoxetine Yes 40mg Take 40 mg U nivers HCl (PROZAC 3-23 by mouth. ity of ORAL) 16:34: [address] LISINOPRIL Yes 20mg Take 20 mg U nivers ORAL 02-12 by mouth. ity of 16:34: [address] Branch hydroxyzine Yes Take by Uni vers pamoate 02-12 mouth. ity of (VISTARIL 16:34: [place] ORAL) [address] [facility] Branch metoprolol 2021- No Take by Uni vers succinate 02-12 mouth ity of (TOPROL XL 15:00: 00:00 [place]. [place] ORAL[place] 51 :00 [facility] propranoloL 2021- No 10mg Take 10 mg Univers 10 mg 02-12 by mouth ity of tablet 15:00: 00:00 [place] needed. [place] 51 :00 [facility] Branch oxazepam No 15mg 15 mg, Univer s (SERAX) [...] First dose [place] mg 00 on [facility] 02/11/22 at Branch 1845, Until Discontinu ed, Routine sennosides- Yes 1{tbl} 1 tablet, Univers docusate 02-11 Oral, ity of sodium 23:30: DAILY, [place] (SENOKOT-S) 00 First dose Me dical 8.6-50 mg on [facility] per tablet 02/11/22 at 1 tablet 1830, Until Discontinu ed, Routine KCL No 40meq 40 mEq, Univers (KLOR-CON 02-11 Oral, ity of M20) tablet 14:45: 13:55 ONCE, 1 [place] 40 mEq 00 :00 dose, On [facility] 02/11/22 at 0945, Routine morpHINE No 4mg [...] Yes 100mg 100 mg, Unive rs (VITAMIN - Oral, ity of B1) tablet 14:00: DAILY, [place] 100 mg 00 First dose Medical on Thu02/10/22 at 0900, Until Discontinu ed, Routine lisinopriL 2021-0 Yes 20mg 20 mg, Unive rs (PRINIVIL,Z - Oral, ity of ESTRIL) 14:00: DAILY, [place] tablet 20 00 First dose Medi xin mg on Thu Branch 02/10/22 at 0900, Until Discontinu ed FLUoxetine 2021-0 Yes 40mg 40 mg, Unive rs (PROZAC) 02-10 Oral, ity of capsule 40 14:00: DAILY, [...] IV Push, ity of mg 08:49: 08:28 Q4HPRN, [place] 55 :49 Starting Medical on Thu02/10/22 at 0349, Until Thu02/11/22 at 0328, Routine, Pain (scale 7-10) LORazepam 0 Yes 1mg 1 mg, Slow Un daylin [...] 02-10 IV Push, ity of (PF)) 08:29: Q6HPRN, [place] injection 4 49 Starting Medi xin mg on Thu Branch 02/10/22 at 0329, Until Discontinu ed, Routine, Nausea and Vomiting (N/V) acetaminoph 2021-0 Yes 650mg 650 mg, Un daylin en 02-10 Oral, ity of (TYLENOL) 08:29: Q6HPRN, [place] tablet 650 49 Starting Medic al mg on Thu Branch 02/10/22 at 0329, Until Discontinu ed, Routine, Pain (scale 1-3) traMADoL 2021- No 50mg 50 mg, Univer s (ULTRAM) 02-10 Oral, ity of tablet 50 08:29: 08:28 Q8HPRN, [place] mg 49 :49 Starting Medical on Thu Branch 02/10/22 at 0329, Until Thu02/12/22 at 0328, Routine, Pain (scale 4-6) morpHINE 2021- No 4mg 4 mg, Slow Un daylin injection 4 02-10 IV Push, ity of mg 07:30: 06:37 ONCE, 1 [place] 00 :00 dose, On Medical [facility] 02/10/22 at 0230, STAT ondansetron No 4mg 4 mg, Slow Univers (ZOFRAN 02-10 IV Push, ity of (PF)) 06:37: 06:38 ONCE, 1 [place] injection 4 00 :00 dose, On Medi xin mg [facility] 02/10/22 at 0145, TIO pantoprazol No 40mg 40 mg, Uni vers e 02-10 Slow IV ity of (PROTONIX) 05:30: 04:42 Push, [place] injection 00 :00 ONCE, 1 Medical 40 mg dose, On Branch [facility] 02/10/22 at 0030 lactated Yes 1000mL [...] [place] mg 00 :00 dose, On Medical [facility] 02/10/22 at 0000, STAT ondansetron 2021- No 4mg 4 mg, Slow Univers (ZOFRAN 02-10 IV Push, ity of (PF)) 05:00: 04:12 ONCE, 1 [place] injection 4 00 :00 dose, On Medi xin mg [facility] 02/10/22 at 0000, TIO morpHINE 0 2021- No 4mg 4 mg, Slow Un daylin injection 4 02-10 IV Push, ity of mg 05:00: 04:12 ONCE, 1 [place] 00 :00 dose, On Medical Mon Branch 02/10/22 at 0000, STAT NaCl 0.9% 2021- No 1000mL at 999 Uni vers (NS) bolus 02-10 mL/hr, ity of infusion 04:30: 03:28 1,000 mL, [place] as 1,000 mL 00 :00 IV Medical Infusion, Branch ONCE, 1 dose, On 02/09/22 at 2330, TIO iohexol 2021- No [id number] 120mL 120 mL, U nivers (OMNIPAQUE 02-10 Intravenou it y of 350 04:15: 04:06 s, ONCE, 1 [place] BULK-100 00 :00 dose, On Medical mL) [place] Branch injection 02/09/22 at 120 mL 2315, Routine Fenofibrate 2019-11 Yes 145 mg = 1 Memoria 145 MG Oral 0-04 tab, PO, l Tablet 16:30: Daily, # [place] 00 30 tab, 0 Refill(s), Pharmacy: [facility] #[id number], 190.5, cm, 08/22/20 23:01:00 CDT, Height, 122.045, kg, 08/22/20 23:01:00 CDT, Weight omega-3 2019-11 Yes 1 gm = 1 Memori a polyunsatur 0-04 cap, PO, l ated fatty 16:30: BID, # 60 He rmann acids 1000 00 cap, 0 mg oral Refill(s), capsule Pharmacy: [facility] #[id number], 190.5, cm, 08/22/20 23:01:00 CDT, Height, 122.045, kg, 08/22/20 23:01:00 CDT, Weight Fenofibrate 2019-11 Yes 145 mg = 1 Memoria 145 MG Oral 0-04 tab, PO, l Tablet 16:30: Daily, # Per 00 30 tab, 0 Refill(s), Pharmacy: [facility] #[id number], 190.5, cm, 08/22/20 23:01:00 CDT, Height, 122.045, kg, 08/22/20 23:01:00 CDT, Weight omega-3 2019-11 Yes 1 gm = 1 Memori a polyunsatur 0-04 cap, PO, l ated fatty 16:30: BID, # 60 He rmann acids 1000 00 cap, 0 mg oral Refill(s), capsule Pharmacy: [facility] #[id number], 190.5, cm, 08/22/20 23:01:00 CDT, Height, 122.045, kg, 08/22/20 23:01:00 CDT, Weight Fenofibrate 2019-11 Yes 145 mg = 1 Memoria 145 MG Oral 0-04 tab, PO, l Tablet 16:30: Daily, # [place] 00 30 tab, 0 Refill(s), Pharmacy: [facility] #[id number], 190.5, cm, 08/22/20 23:01:00 CDT, Height, 122.045, kg, 08/22/20 23:01:00 CDT, Weight omega-3 2019-11 Yes 1 gm = 1 Memori a polyunsatur 0-04 cap, PO, l ated fatty 16:30: BID, # 60 He rmann acids 1000 00 cap, 0 mg oral Refill(s), capsule Pharmacy: [facility] #[id number], 190.5, cm, 08/22/20 23:01:00 CDT, Height, 122.045, kg, 08/22/20 23:01:00 CDT, Weight ciprofloxac 2019-11 Yes 500 mg = 1 Memoria in 500 mg 0-04 tab, PO, l oral tablet 16:26: Q12H, for H ermann 00 UTI, X 3 day, # 6 tab, 0 Refill(s), Pharmacy: [facility] #[id number], 190.5, cm, 08/22/20 23:01:00 CDT, Height, 122.045, kg, 08/22/20 23:01:00 CDT, Weight Metronidazo 2019-11 Yes 500 mg = 1 Memoria le 500 MG 0-04 tab, PO, l Oral Tablet 16:26: Q8H, X 3 He rmann [Flagyl] 00 day, # 9 tab, 0 Refill(s), Pharmacy: [facility] #[id number], 190.5, cm, 08/22/20 23:01:00 CDT, Height, 122.045, kg, 08/22/20 23:01:00 CDT, Weight thiamine 2019-11 Yes 100 mg = 1 Mem oria 100 mg oral 0-04 tab, PO, l tablet 16:26: Daily, X Per 00 30 day, # 30 tab, 0 Refill(s), Pharmacy: [facility] #[id number], 190.5, cm, 08/22/20 23:01:00 CDT, Height, 122.045, kg, 08/22/20 23:01:00 CDT, Weight Folic Acid 2019-11 Yes 1 mg = 1 Mem oria 1 MG Oral 0-04 tab, PO, l Tablet 16:26: Daily, # [place] 00 30 tab, 0 Refill(s), Pharmacy: [facility] #[id number], 190.5, cm, 08/22/20 23:01:00 CDT, Height, 122.045, kg, 08/22/20 23:01:00 CDT, Weight Chlordiazep 2019-11 Yes 10 mg = 1 M emoria oxide 0-04 cap, PO, l Hydrochlori 16:26: QID, X 3 He rmann de 10 MG 00 day, # 12 Oral cap, 0 Capsule Refill(s), Pharmacy: [facility] #[id number], 190.5, cm, 08/22/20 23:01:00 CDT, Height, 122.045, kg, 08/22/20 23:01:00 CDT, Weight Lorazepam 1 2019-11 Yes 1 mg = 1 Me moria MG Oral 0-04 tab, PO, l Tablet 16:26: TID, PRN Per [Ativan] 00 as needed for anxiety, X 7 day, # 24 tab, 0 Refill(s), Pharmacy: [facility] #[id number], 190.5, cm, 08/22/20 23:01:00 CDT, Height, 122.045, kg, 08/22/20 23:01:00 CDT, Weight Famotidine 2019-11 Yes 20 mg = 1 Me moria 20 MG Oral 0-04 tab, PO, l Tablet 16:26: Q12H, # 14 Sharita nn [Pepcid] 00 tab, 0 Refill(s), Pharmacy: [facility] #[id number], 190.5, cm, 08/22/20 23:01:00 CDT, Height, 122.045, kg, 08/22/20 23:01:00 CDT, Weight labetalol 2019-11 Yes 100 mg = 1 Me moria 100 mg oral 0-04 tab, PO, l tablet 16:26: TID, # 90 Bakari n 00 tab, 0 Refill(s), Pharmacy: [facility] #[id number], 190.5, cm, 08/22/20 23:01:00 CDT, Height, 122.045, kg, 08/22/20 23:01:00 CDT, Weight ciprofloxac 2019-11 Yes 500 mg = 1 Memoria in 500 mg 0-04 tab, PO, l oral tablet 16:26: Q12H, for H ermann 00 UTI, X 3 day, # 6 tab, 0 Refill(s), Pharmacy: [facility] #[id number], 190.5, cm, 08/22/20 23:01:00 CDT, Height, 122.045, kg, 08/22/20 23:01:00 CDT, Weight Metronidazo 2019-11 Yes 500 mg = 1 Memoria le 500 MG 0-04 tab, PO, l Oral Tablet 16:26: Q8H, X 3 He rmann [Flagyl] 00 day, # 9 tab, 0 Refill(s), Pharmacy: [facility] #[id number], 190.5, cm, 08/22/20 23:01:00 CDT, Height, 122.045, kg, 08/22/20 23:01:00 CDT, Weight thiamine 2019-11 Yes 100 mg = 1 Mem oria 100 mg oral 0-04 tab, PO, l tablet 16:26: Daily, X [place] 00 30 day, # 30 tab, 0 Refill(s), Pharmacy: [facility] #[id number], 190.5, cm, 08/22/20 23:01:00 CDT, Height, 122.045, kg, 08/22/20 23:01:00 CDT, Weight Folic Acid 2019-11 Yes 1 mg = 1 Mem oria 1 MG Oral 0-04 tab, PO, l Tablet 16:26: Daily, # Per 00 30 tab, 0 Refill(s), Pharmacy: [facility] #[id number], 190.5, cm, 08/22/20 23:01:00 CDT, Height, 122.045, kg, 08/22/20 23:01:00 CDT, Weight Chlordiazep 2019-11 Yes 10 mg = 1 M emoria oxide 0-04 cap, PO, l Hydrochlori 16:26: QID, X 3 He rmann de 10 MG 00 day, # 12 Oral cap, 0 Capsule Refill(s), Pharmacy: [facility] #[id number], 190.5, cm, 08/22/20 23:01:00 CDT, Height, 122.045, kg, 08/22/20 23:01:00 CDT, Weight Lorazepam 1 2019-11 Yes 1 mg = 1 Me moria MG Oral 0-04 tab, PO, l Tablet 16:26: TID, PRN [place] [Ativan] 00 as needed for anxiety, X 7 day, # 24 tab, 0 Refill(s), [id number], 190.5, cm, 08/22/20 23:01:00 CDT, Height, 122.045, kg, 08/22/20 23:01:00 CDT, Weight Famotidine 2019-11 Yes 20 mg = 1 Me moria 20 MG Oral 0-04 tab, PO, l Tablet 16:26: Q12H, # 14 Sharita nn [Pepcid] 00 tab, 0 Refill(s), [id number], 190.5, cm, 08/22/20 23:01:00 CDT, Height, 122.045, kg, 08/22/20 23:01:00 CDT, Weight labetalol 2019-11 Yes 100 mg = 1 Me moria 100 mg oral 0-04 tab, PO, l tablet 16:26: TID, # 90 Bakari n 00 tab, 0 Refill(s), Pharmacy: [facility] #[id number], 190.5, cm, 08/22/20 23:01:00 CDT, Height, 122.045, kg, 08/22/20 23:01:00 CDT, Weight ciprofloxac 2019-11 Yes 500 mg = 1 Memoria in 500 mg 0-04 tab, PO, l oral tablet 16:26: Q12H, for H [place] 00 UTI, X 3 day, # 6 tab, 0 Refill(s), Pharmacy: [facility] #[id number], 190.5, cm, 08/22/20 23:01:00 CDT, Height, 122.045, kg, 08/22/20 23:01:00 CDT, Weight Metronidazo 2019-11 Yes 500 mg = 1 Memoria le 500 MG 0-04 tab, PO, l Oral Tablet 16:26: Q8H, X 3 He rmann [Flagyl] 00 day, # 9 tab, 0 Refill(s), Pharmacy: [facility] #[id number], 190.5, cm, 08/22/20 23:01:00 CDT, Height, 122.045, kg, 08/22/20 23:01:00 CDT, Weight thiamine 2019-11 Yes 100 mg = 1 Mem oria 100 mg oral 0-04 tab, PO, l tablet 16:26: Daily, X Per 00 30 day, # 30 tab, 0 Refill(s), Pharmacy: [facility] #[id number], 190.5, cm, 08/22/20 23:01:00 CDT, Height, 122.045, kg, 08/22/20 23:01:00 CDT, Weight Folic Acid 2019-11 Yes 1 mg = 1 Mem oria 1 MG Oral 0-04 tab, PO, l Tablet 16:26: Daily, # [place] 00 30 tab, 0 Refill(s), Pharmacy: [facility] #[id number], 190.5, cm, 08/22/20 23:01:00 CDT, Height, 122.045, kg, 08/22/20 23:01:00 CDT, Weight Chlordiazep 2019-11 Yes 10 mg = 1 M emoria oxide 0-04 cap, PO, l Hydrochlori 16:26: QID, X 3 He rmann de 10 MG 00 day, # 12 Oral cap, 0 Capsule Refill(s), Pharmacy: [facility] #[id number], 190.5, cm, 08/22/20 23:01:00 CDT, Height, 122.045, kg, 08/22/20 23:01:00 CDT, Weight Lorazepam 1 2019-11 Yes 1 mg = 1 Me moria MG Oral 0-04 tab, PO, l Tablet 16:26: TID, PRN [place] [Ativan] 00 as needed for anxiety, X 7 day, # 24 tab, 0 Refill(s), Pharmacy: [facility] #[id number], 190.5, cm, 08/22/20 23:01:00 CDT, Height, 122.045, kg, 08/22/20 23:01:00 CDT, Weight Famotidine 2019-11 Yes 20 mg = 1 Me moria 20 MG Oral 0-04 tab, PO, l Tablet 16:26: Q12H, # 14 Sharita nn [Pepcid] 00 tab, 0 Refill(s), Pharmacy: [facility] #[id number], 190.5, cm, 08/22/20 23:01:00 CDT, Height, 122.045, kg, 08/22/20 23:01:00 CDT, Weight labetalol 2019-11 Yes 100 mg = 1 Me moria 100 mg oral 0-04 tab, PO, l tablet 16:26: TID, # 90 Bakari n 00 tab, 0 Refill(s), Pharmacy: [facility] #[id number], 190.5, cm, 08/22/20 23:01:00 CDT, Height, 122.045, [...] oria 0-03 to exceed l 22:12: 400mg/day. [place] 00 (Same As: Ultram) Tramadol 2019-11 No Notes: Not Mem oria 0-03 to exceed l 22:12: 400mg/day. [place] 00 (Same As: Ultram) Tramadol 2019-11 No Notes: Not Mem oria 0-03 to exceed l 22:12: 400mg/day. [place] 00 (Same As: Ultram) Lisinopril 2019-11 No Notes: Memor ia 0-03 (Same as: l 17:00: Prinivil, [place] 00 Zestril) Lisinopril 2019-11 No Notes: Memor ia 0-03 (Same as: l 17:00: Prinivil, [place] 00 Zestril) Lisinopril 2019-11 No Notes: Memor ia 0-03 (Same as: l 17:00: Prinivil, [place] 00 Zestril) Potassium 2019-11 No Notes: Memori [...] s with feeding tube less than 14 [place] (Dobhoff, J-tube etc) and pediatric and patients. [...] phosphate 0-03 Infuse l 16:35: over 4 [place] 00 hour. Do not infuse phosphorou s concurrent ly in the same line as TPN or IVF that contains calcium. For double lumen central lines, phosphorou s may be infused in a separate lumen from TPN. Magnesium 2019-11 No Notes: Memori a Sulfate 0-03 WASTE: F/P l 16:35: - Sink; E Per - Municipal Trash Bin Magnesium 2019-11 No Notes: Memori a Oxide 0-03 (Same as: l 16:35: Mag-Ox [place] 00 400) Magnesium oxide 359ik=620o g elemental magnesium Dose=____m g magnesium oxide (___mg elemental magnesium) Calcium 2019-11 No Notes: Memoria Gluconate 0-03 WASTE: F/P l 16:35: - Sink; E Per - Municipal Trash Bin Potassium 2019-11 No Notes: Memori a Chloride 0-03 (Same as: l 16:35: K-Dur 20) 00 "Do Not Crush" Give with food and full glass of water For patients unable to swallow tablet, dissolve in one half glass of water. Allow about 2 minutes for the tablets to disintegra te. Stir before giving to prepare slurry and administer . Please exclude Patient s with feeding tube less than 14 [place] (Dobhoff, J-tube etc) and pediatric and patients. [...] WASTE: F/P l 16:35: - Sink; E [place] 00 - Municipal Trash Bin Magnesium 2019-11 No Notes: Memori a Oxide 0-03 (Same as: l 16:35: Mag-Ox Per 00 400) Magnesium oxide 125el=431z g elemental magnesium Dose=____m g magnesium oxide (___mg elemental magnesium) Calcium 2019-11 No Notes: Memoria Gluconate 0-03 WASTE: F/P l 16:35: - Sink; E [place] - Municipal Trash Bin Potassium 2019-11 No [...] s with feeding tube less than 14 [place] (Dobhoff, J-tube etc) and pediatric and patients. potassium 2019-11 No Notes: Memori a phosphate-s 0-03 (Same as: l odium 16:35: Phos-NaK) Per phosphate 00 Each 1.5 250 mg-280 gm pkt has mg-160 mg 250mg oral powder phosphorou for s. Mix reconstitut w/2.5oz ion water and stir. potassium 2019-11 No Notes: Memori a phosphate 0-03 (Same as: l 16:35: K [place] 00 Phosphate. ) Do not infuse phosphorou s concurrent ly in the same line as TPN or IVF that contains calcium. For double lumen central lines, phosphorou s may be infused in a separate lumen from TPN. 1 mMol phoshate has 1.47 mEq potassium Infuse over 4 hours sodium 2019-11 No Notes: Memoria phosphate 0-03 Infuse l 16:35: over 4 [place] 00 hour. Do not infuse phosphorou s concurrent ly in the same line as TPN or IVF that contains calcium. For double lumen central lines, phosphorou s may be infused in a separate lumen from TPN. Magnesium 2019-11 No Notes: Memori a Sulfate 0-03 WASTE: F/P l 16:35: - Sink; E [place] 00 - Municipal Trash Bin Magnesium 2019-11 No Notes: Memori a Oxide 0-03 (Same as: l 16:35: Mag-Ox Per 00 400) Magnesium oxide 752ak=630e g elemental magnesium Dose=____m g magnesium oxide (___mg elemental magnesium) Calcium 2019-11 No Notes: Memoria Gluconate 0-03 WASTE: F/P l 16:35: - Sink; E [place] 00 - Municipal Trash Bin Potassium 2019-11 [...] a 0-03 With food. l 15:00: (Same as:Trandat e, Normodyne) Labetalol 2019-11 No Notes: Memori a 0-03 With food. l 15:00: (Same as:Trandat e, Normodyne) Labetalol 2019-11 No Notes: Memori a 0-03 With food. l 15:00: (Same Per 00 as:Trandat e, Normodyne) Lactulose 2019-11 No Notes: Memori a 667 MG/ML 0-02 (Same l Oral 21:03: as:Chronul [place] Solution 00 ac) Haldol 2019-11 No Notes: Memoria 0-02 (Same as: l 21:03: Haldol) Per 00 Lactulose 2019-11 No Notes: Memori a 667 MG/ML 0-02 (Same l Oral 21:03: as:Chronul [place] Solution 00 ac) Haldol 2019-11 No Notes: Memoria 0-02 (Same as: l 21:03: Haldol) [place] 00 Lactulose 2019-11 No Notes: Memori a 667 MG/ML 0-02 (Same l Oral 21:03: as:Chronul Per Solution 00 ac) Haldol 2019-11 No Notes: Memoria 0-02 (Same as: l 21:03: Haldol) [place] Ciprofloxac 2019-11 No Notes: Do M emoria [...] Memoria 0-02 (Same as: l 14:00: Flagyl) [place] Avoid alcohol. Famotidine 2019-11 No Notes: Memor ia 20 MG Oral 0-02 (Same as: l Tablet 02:00: Pepcid) [place] [Pepcid] 00 168 HR 2019-11 No Notes: Memoria Clonidine 0-02 Patch l 0.14850 02:00: delivers Bakari n MG/HR 00 0.2 mg/24 Transdermal hours; Patch Patch is applied weekly. "Remove old patch before applicatio n of new patch" (Same As: Catapres-T TS-2) Famotidine 2019-11 No Notes: Memor ia 20 MG Oral 0-02 (Same as: l Tablet 02:00: Pepcid) Per [Pepcid] 00 168 HR 2019-11 No Notes: Memoria Clonidine 0-02 Patch l 0.52721 02:00: delivers Bakari n MG/HR 00 0.2 mg/24 Transdermal hours; Patch Patch is applied weekly. "Remove old patch before applicatio n of new patch" (Same As: Catapres-T TS-2) Famotidine 2019-11 No Notes: Memor ia 20 MG Oral 0-02 (Same as: l Tablet 02:00: Pepcid) [place] [Pepcid] 00 168 HR 2019-11 No Notes: Memoria Clonidine 0-02 Patch l 0.44772 02:00: delivers Bakari n MG/HR 00 0.2 [...] a 0-02 (Same as: l 01:41: Normodyne, [place] 00 Trandate) Push over 2 minutes Give bolus over 2-3 minutes. Labetalol 2019-11 No Notes: Memori a 0-02 (Same as: l 01:41: Normodyne, Per 00 Trandate) Push over 2 minutes Give bolus over 2-3 minutes. Fenofibrate 2019-11 No Notes: Reagan sharonda 160 MG Oral 0-01 (Same as: l Tablet 14:00: Tricor) [place] 00 omega-3 2019-11 No Notes: Memoria polyunsatur [...] Memoria 0-01 (Same As: l 14:00: Vitamin [place] 00 B1) multivitami 2019-11 No Notes: Reagan [...] 14:00: Librium) He rmann de 10 MG 00 Oral Capsule Folic Acid 2019-11 No Notes: [...] 14:00: Librium) He rmann de 10 MG 00 Oral Capsule Folic Acid 2019-11 No Notes: [...] Catapres) Phenergan 2019-11 No 12.5 mg, Reagan hsaronda 0-01 Route: l 13:13: IVPB, Q4H, Dosing [...] tab, PO, l tablet 04:14: Daily, # [place] 00 30 tab, 0 Refill(s) NS (Bolus) [...] tab, PO, l tablet 04:14: Daily, # [place] 00 30 tab, 0 Refill(s) NS (Bolus) 2019-11 No 1,000 mL, Me moria IV 0-01 1,000 l 04:14: ml/hr, [place] 00 Infuse Over: 1 hr, Route: IV, 1,000, Drug form: INJ, ONCE, Priority: STAT, Dosing Weight 122.045 kg, Start date: 08/22/20 23:14:00 CDT, Stop date: 08/22/20 23:14:00 CDT, 0 Ativan 2019-11 No Notes: Memoria 0-01 (Same as: l 04:13: Ativan) [place] Ativan 2019-11 No Notes: Memoria 0-01 (Same as: l 04:13: Ativan) Per Ativan 2019-11 No Notes: [facility]oria 0-01 (Same as: l 04:13: Ativan) [place] 00 NS 1,000 mL 2019-11 No 1,000 mL, M emoria 0-01 Rate: 100 l 04:11: ml/hr, Per 00 Infuse over: 10 hr, Route: IV, Dosing Weight 122.045 kg, Total Volume: 1,000, Start date: 08/22/20 23:11:00 CDT, Duration: 30 day, Stop date: 09/21/20 23:10:00 CDT, 2.56, m2, 0 Dilaudid 2019-11 No Notes: [facility]oria 0-01 Same as: l 04:11: Dilaudid [place] 00 NS 1,000 mL 2019-11 No 1,000 mL, M emoria 0 Rate: 100 l 04:11: ml/hr, [place] 00 Infuse over: 10 hr, Route: IV, Dosing Weight 122.045 kg, Total Volume: 1,000, Start date: 08/22/20 23:11:00 CDT, Duration: 30 day, Stop date: 09/21/20 23:10:00 CDT, 2.56, m2, 0 Dilaudid 2019-11 No Notes: [facility] 0-01 Same as: l 04:11: Dilaudid Per 00 NS 1,000 mL 2019-11 No 1,000 mL, M emoria 0 Rate: 100 l 04:11: ml/hr, Infuse over: 10 hr, Route: IV, Dosing Weight 122.045 kg, Total Volume: 1,000, Start date: 08/22/20 23:11:00 CDT, Duration: 30 day, Stop date: 09/21/20 23:10:00 CDT, 2.56, m2, 0 Dilaudid 2019-11 No Notes: [facility]oria 0-01 Same as: l 04:11: Dilaudid Dextrose 2019-11 No 12.5 gm, Memor ia 50% Syringe 0-01 25 mL, l ([id number]) 04:10: Route: [place] 00 IVP, Drug Form: INJ, Dosing Weight 122.045, kg, PRN, PRN Blood Glucose Results, Start date: 08/22/20 23:10:00 CDT, Duration: 30 day, Stop date: 09/21/20 23:09:00 CDT, 0 Glucagon 2019-11 No 1 mg, Memoria 0-01 Route: IM, l 04:10: Drug form: [place] 00 PDR/INJ, PRN, Dosing Weight 122.045, kg, PRN Blood Glucose Results, Start date: 08/22/20 23:10:00 CDT, Duration: 30 day, Stop date: 09/21/20 23:09:00 CDT, 0 Ondansetron 2020-1 No Notes: Reagan sharonda 0-01 (Same as: l 04:10: Sandy) Per MEDICATION WASTE Product Size: 4 mg Product Wasted: ___ mg Dextrose 2020-1 No 12.5 gm, Memor ia 50% Syringe 0-01 25 mL, l (D50W) 04:10: Route: [place] 00 IVP, Drug Form: INJ, Dosing Weight 122.045, kg, PRN, PRN Blood Glucose Results, Start date: 08/22/20 23:10:00 CDT, Duration: 30 day, Stop date: 09/21/20 23:09:00 CDT, 0 Glucagon 2020-1 No 1 mg, Memoria 0-01 Route: IM, l 04:10: Drug form: [place] 00 PDR/INJ, PRN, Dosing Weight 122.045, kg, [...] 0-01 25 mL, l (D50W) 04:10: Route: [place] 00 IVP, Drug Form: INJ, Dosing Weight 122.045, kg, PRN, PRN Blood Glucose Results, Start date: 08/22/20 23:10:00 CDT, Duration: 30 day, Stop date: 09/21/20 23:09:00 CDT, 0 Glucagon 2020-1 No 1 mg, Memoria 0-01 Route: IM, l 04:10: Drug form: [place] 00 PDR/INJ, PRN, Dosing Weight 122.045, kg, PRN Blood Glucose Results, Start date: 08/22/20 23:10:00 CDT, Duration: 30 day, Stop date: 09/21/20 23:09:00 CDT, 0 Ondansetron 2020-1 No Notes: Reagan sharonda 0-01 (Same as: l 04:10: Zofran) [place] 00 MEDICATION WASTE Product Size: 4 mg Product Wasted: ___ mg Vital Signs Vital Name Observation Time Observation Value Comments Source Systolic blood 2022-02-12 17:02:00 158 mm[Hg] Univer sity of pressure [facility] Diastolic blood 2022-02-12 17:02:00 94 mm[facility]Hg[facility] 2022-02-12 17:02:00 84 /min [facility] Respiratory rate 2022-02-12 17:02:00 18 /min General acute hospital Oxygen saturation in 2022-02-12 17:02:00 95 /min [facility] Arterial blood by [facility] Pulse oximetry Branch Body temperature 2022-02-12 17:01:00 36.11 Gladys [facility] acute hospital Body weight 2022-02-12 09:19:00 130.001 kg [facility] BMI 2022-02-12 09:19:00 35.82 kg/m2 [facility] Body height 2022-02-10 08:06:00 190.5 cm [facility] Temperature Oral (F) 2020-08-26 13:00:00 98.9 F [facility] [place] Heart Rate 2020-08-26 13:00:00 [facility] Per Respitory Rate 2020-08-26 13:00:00 Memori al [place] Systolic (mm Hg) 2020-08-26 13:00:00 Reagan rial [place] Diastolic (mm Hg) 2020-08-26 13:00:00 Mem orial [place] Temperature Oral (F) 2020-08-26 09:00:00 98.4 F [facility] Per Heart Rate 2020-08-26 09:00:00 Memorial Per Respitory Rate 2020-08-26 09:00:00 Memori al [place] Systolic (mm Hg) 2020-08-26 09:00:00 Reagan rial Per Diastolic (mm Hg) 2020-08-26 09:00:00 Mem orial [place] Systolic (mm Hg) 2020-08-26 07:30:00 Reagan rial Per Diastolic (mm Hg) 2020-08-26 07:30:00 Mem orial Per Heart Rate 2020-08-26 07:30:00 Manjula Albarado Temperature Oral (F) 2020-08-26 05:00:00 100.6 F Manjula Albarado Respitory Rate 2020-08-26 05:00:00 Lubna Arredondo Height 2020-08-23 04:01:00 190.5 cm Manjula Albarado Weight 2020-08-23 04:01:00 Manjula Albarado BMI Calculated 2020-08-23 04:01:00 Lubna Arredondo Procedures Procedure Date / Time Performing Clinician Source Performed LIPASE 2022-02-11 08:44:00 Dino [facility] MAGNESIUM 2022-02-11 08:44:00 Rodriguez Andres [facility] BASIC METABOLIC PANEL 2022-02-11 08:44:00 Dino [facility] (NA, K, CL, CO2, GLUCOSE, Medica l Branch BUN, CREATININE, CA) CBC WITH DIFF 2022-02-11 08:44[facility]OPROTEIN, 2022-02-10 15:[facility] (18730)(TOTAL 2022-02-10 15:01:00 Dino [facility] CHOLESTEROL, [facility] TRIGLYCERIDES, HDL) HB ECG ROUTINE & RHYTHM 2022-02-10 04:21:20 Chastity Giles [facility] STRIP [facility] CT ABDOMEN PELVIS W 2022-02-10 04:11:02 Chastity Giles [facility] CONTRAST [facility] Branch COVID-19 (ID NOW RAPID 2022-02-10 03:58:00 Chastity Giles [facility] TESTING) Medical Branch LAB ONLY COVID 2022-02-10 03:58:00 Chastity Giles [facility] INTERPRETATION [facility] N-TERMINAL PRO-BNP 2022-02-10 03:28:00 Chastity Giles [facility] URINE DRUG (IMMUNOASSAY) 2022-02-10 03:28:00 Chastity Giles [facility] - COMPREHENSIVE [facility] Medical [facility] SCREEN W/O REFLEX LIPASE 2022-02-10 03:28:[address] [facility] COMP. METABOLIC PANEL 2022-02-10 03:28:00 Chastity Giles [facility] ([id number]) Medical Branch ETHANOL 2022-02-10 03:28:[address] [facility] CBC WITH DIFF 2022-02-10 03:28:[address] [facility] URINALYSIS 2022-02-10 03:28:[address] [facility] NOTICE OF PRIVACY 2022-02-10 02:09:50 Doctor Unassigned, [facility] PRACTICES [place] [facility] CONSENT/REFUSAL FOR 2022-02-10 02:08:16 [facility] DIAGNOSIS AND TREATMENT [facility] Encounters Start End Encounter Admission Attending Care Care Encounter Source Date/Time Date/Time Type Type Clinicians Facility Department ID 2022-02-13 2022-02-13 Transition RACHAEL Dowd [id number] Univers 00:00:00 00:00:00 of Care Kaela DUNN [id number] ity of [place] [id number] [facility] [id number] [facility] 403 Branch 2022-02-09 2022-02-12 [facility] Chastity Giles [facility] [id number]. [id number] Univers 21:40:00 16:33:00 Encounter Luz Marina Sun [id number] ity of Rodriguez Andres 4.2.7.2.686 [facility] [id number] [facility] 081 Branch 2022-02-09 2022-02-12 Inpatient X DELMY IDTERRELL FATEMEH [id number] Univers 21:40:00 16:33:00 RODRIGUEZ [facility] 2020-08-23 2020-08-26 Inpatient [facility] [id number] Memoria 03:35:00 18:15:00 r Per 75 l [facility] 2020-08-23 2020-08-26 Inpatient [facility] [id number] Memoria 03:35:00 18:15:00 r [place] 75 l [facility] 2020-08-22 2020-08-26 Inpatient U [facility] MED [id number] MHBL 22:35:00 13:15:00 JEFF 2020-08-22 2020-08-26 Outpatient Shital [facility] [id number] 22:35:00 13:15:00 Jeff 75 2020-08-22 2020-08-26 Outpatient Shital [facility] [id number] 22:35:00 13:15:00 Jeff 75 Results Test Description Test Time Test Comments Results Result Comments Source MAGNESIUM 2022-02-11 14:38:24 Test Item Value Reference Range Interpretation Comme nts MAGNESIUM (test code = 1255937612) 1.6 mg/dL 1.7-2.4 L Lab Interpretation (test code = 77643-5) Abnormal [facility] Metabolic Panel (NA, K, CL, CO2, GLUCOSE, BUN, CREATININE, CA)2022-02-11 10:17:51 Test Item Value Reference Range Interpretation Comments NA (test code = 135 mmol/L 135-145 5660475379) K (test code = 3.4 mmol/L 3.5-5.0 L 7576936208) CL (test code = 101 mmol/L 98-108 4217293841) CO2 TOTAL (test code = 24 mmol/L 23-31 1354542734) AGAP (test code = 2-16 0375270221) BUN (test code = 8 mg/dL 7-23 1129148972) GLUCOSE (test code = 117 mg/dL 70-110 H 4390557474) CREATININE (test code = 0.57 mg/dL 0.60-1.25 L 1964430510) CALCIUM (test code = 8.0 mg/dL 8.6-10.6 L 3542060529) eGFR (test code = mL/min/1.73m2 1191707322) JOEY (test code = JOEY) Association of [...] tests). Lab Interpretation Abnormal (test code = 66822-8) [facility] 10:16:51 Test Item Value Reference Range Interpretation Comments LIPASE (test code = 7164477949) 760 U/L 0-220 H Lab Interpretation (test code = Abnormal 98167-4) [facility] with Glkqblumnnlx9117-28-77 10:04:30 Test Item Value Reference Range Interpretation Comments WBC (test code = See_Comment [Automated 2895-2) message] The sy stem which generated this result transmitted reference range : 4.20 - 10.70 10*3/?L. The reference range was not used to interpret this result as normal/abnormal . RBC (test code = See_Comment [Automated 922-8) message] The sy stem which generated this [...] RDW-SD (test code = 41.1 fL 38.5-51.6 23537-9) RDW-CV (test code = 12.6 % 12.1-15.4 788-0) PLT (test code = See_Comment [Automated 777-3) message] The sy stem which generated this result transmitted reference range : 150 - 328 10*3/ ?L. The reference r jose guadalupe was not used to interpret this result as normal/abnormal . MPV (test code = 8.8 fL 9.8-13.0 L 92897-0) NRBC/100 WBC (test See_Comment [Automat ed code = 9480617557) message] The system which generated this result transmitted reference range : 0.0 - 10.0 /100 WBCs. The refer ence range was not u sed to interpret th is result as normal/abnormal . NRBC x10^3 (test code <0.01 See_Comment [Auto mated = 1272176447) message] The s ystem which generated this result transmitted reference range : 10*3/?L. The reference range was not used to interpret this result as normal/abnormal . GRAN MAT (NEUT) % 67.4 % (test code = 770-8) IMM GRAN % (test code 0.30 % = 0033890735) LYMPH % (test code = 21.3 % 736-9) MONO % (test code = 6.1 % 5905-5) EOS % (test code = 4.5 % 713-8) BASO % (test code = 0.4 % 706-2) GRAN MAT x10^3(ANC) 5.00 10*3/uL 1.99-6.95 (test code = 8489708566) IMM GRAN x10^3 (test <0.03 0.00-0.06 code = 4561221868) LYMPH x10^3 (test code 1.58 10*3/uL 1.09-3.23 = 731-0) MONO x10^3 (test code 0.45 10*3/uL 0.36-1.02 = 742-7) EOS x10^3 (test code = 0.33 10*3/uL 0.06-0.53 711-2) BASO x10^3 (test code 0.03 10*3/uL 0.01-0.09 = 704-7) Lab Interpretation Abnormal (test code = 16330-7) [facility] LIPOPROTEIN, [id number] 20:39:08 Test Item Value Reference Range Interpretation Comments dLDL Chol (test code = 89080-0) 116 mg/dL <130 Lab Interpretation (test code = Normal 48108-9) [facility] (04806)(TOTAL CHOLESTEROL, TRIGLYCERIDES, HDL)2022-02-10 15:44:01 Test Item Value Reference Range Interpretation Comments CHOL (test code = 226 mg/dL 120-200 H 9470935272) HDL (test code = 76 mg/dL >40 7701787463) HDLC RATIO (test code = See_Comment [Au tomated message] 7113456410) The system GitHub generated this result transmit mary carmen reference range : <=5.0. The refe rence range was not u sed to interpret th is result as normal/abnormal . TRIG (test code = 139 mg/dL 30-170 1394489007) LDL CHOL (test code = 122 mg/dL See_Comment [Auto mated message] 10041-5) The system GitHub generated this result transmit mary carmen reference range : <=160. The refe rence range was not u sed to interpret th is result as normal/abnormal . VLDL (test code = 28 mg/dL 5-60 4314475930) Lab Interpretation (test Abnormal code = 32018-9) [facility]22-[facility]-21 05:05:53 Test Item Value Reference Range Interpretation Comments ALCOHOL (test code = 280 mg/dL 5902734190) JOEY (test code = JOEY) <10 Zdrwsaim35-554 Toxic>100 Depression of SHIRT SORTER>[address] [facility] [id number] 04:12:13 Test Item Value Reference Range Interpretation Comments NT-proBNP (test code 441 pg/mL See_Comment H [Autom ated = 2625293983) message] The system which generated this result transmitted reference range : <=125. The reference range was not used to interpret this result as normal/abnormal . JOEY (test code = JOEY) Biotin has been reported to cause a negative bias, interpret results relative to patient's use of biotin. Lab Interpretation Abnormal (test code = 02452-5) [facility]. METABOLIC PANEL (88719)2022-02-10 03:56:30 Test Item Value Reference Range Interpretation Comments NA (test code = 137 mmol/L 135-145 0272949847) K (test code = 5.4 mmol/L 3.5-5.0 H 8891986626) CL (test code = 101 mmol/L 98-108 0887987765) CO2 TOTAL (test code = 25 mmol/L 23-31 0931236223) AGAP (test code = 2-16 2714822877) BUN (test code = 21 mg/dL 7-23 4641369383) GLUCOSE (test code = 120 mg/dL 70-110 H 5510270057) CREATININE (test code = 0.93 mg/dL 0.60-1.25 5663158566) TOTAL BILI (test code = 0.7 mg/dL 0.1-1.6 3347903198) CALCIUM (test code = 8.8 mg/dL 8.6-10.6 8228910854) T PROTEIN (test code = 7.5 g/dL 6.3-8.2 5447647314) ALBUMIN (test code = 4.2 g/dL 3.5-5.0 4582357348) ALK PHOS (test code = 86 U/L 34-122 9615891336) ALTv (test code = 75 U/L 5-50 H 1742-6) AST(SGOT) (test code = 93 U/L 13-40 H 6286088312) eGFR (test code = mL/min/1.73m2 1452299898) JOEY (test code = JOEY) Association of [...] tests). Lab Interpretation Abnormal (test code = 58115-8) [facility]21 03:56:30 Test Item Value Reference Range Interpretation Comments LIPASE (test code = 5823399531) 335 U/L 0-220 H Lab Interpretation (test code = Abnormal 40746-9) [facility] WITH [id number] 03:40:28 Test Item Value Reference Range Interpretation Comments WBC (test code = See_Comment [Automated 5125-2) message] The sy stem which generated this result transmitted reference range : 4.20 - 10.70 10*3/?L. The reference range was not used to interpret this result as normal/abnormal . RBC (test code = See_Comment [Automated 762-8) message] The sy stem which generated this [...] RDW-SD (test code = 42.0 fL 38.5-51.6 18885-7) RDW-CV (test code = 13.1 % 12.1-15.4 788-0) PLT (test code = See_Comment [Automated 777-3) message] The sy stem which generated this result transmitted reference range : 150 - 328 10*3/ ?L. The reference r jose guadalupe was not used to interpret this result as normal/abnormal . MPV (test code = 8.4 fL 9.8-13.0 L 36279-4) NRBC/100 WBC (test See_Comment [Automat ed code = 5669393602) message] The system which generated this result transmitted reference range : 0.0 - 10.0 /100 WBCs. The refer ence range was not u sed to interpret th is result as normal/abnormal . NRBC x10^3 (test code <0.01 See_Comment [Auto mated = 8042207975) message] The s ystem which generated this result transmitted reference range : 10*3/?L. The reference range was not used to interpret this result as normal/abnormal . GRAN MAT (NEUT) % 60.6 % (test code = 770-8) IMM GRAN % (test code 0.50 % = 4900923807) LYMPH % (test code = 30.8 % 736-9) MONO % (test code = 6.0 % 5905-5) EOS % (test code = 1.3 % 713-8) BASO % (test code = 0.8 % 706-2) GRAN MAT x10^3(ANC) 5.09 10*3/uL 1.99-6.95 (test code = 8319832695) IMM GRAN x10^3 (test 0.04 10*3/uL 0.00-0.06 code = 8559083621) LYMPH x10^3 (test code 2.59 10*3/uL 1.09-3.23 = 731-0) MONO x10^3 (test code 0.50 10*3/uL 0.36-1.02 = 742-7) EOS x10^3 (test code = 0.11 10*3/uL 0.06-0.53 711-2) BASO x10^3 (test code 0.07 10*3/uL 0.01-0.09 = 704-7) Lab Interpretation Abnormal (test code = 94779-0) [facility]2020-10-04 09:37:00 Test Item Value Reference Range Interpretation Comments eGFR (test code = eGFR) 131 [facility] HospitalBdtpvjxLWVSJAJWTW5733-17-44 09:37:00 Test Item Value Reference Range Interpretation Comments Segs (test code = Segs) 74.5 45.0-75.0 [facility] HospitalMlftjpkRQKTNJXEMW4509-54-17 09:37:00 Test Item Value Reference Range Interpretation Comments Lymphocytes (test code = Lymphocytes) 12.0 20.0-40.0 [facility] HospitalKirhvbvIYJLKJPTIT4133-33-77 09:37:00 Test Item Value Reference Range Interpretation Comments Monocytes (test code = Monocytes) 11.7 2.0-12.0 [facility] HospitalFyhpolyROEZEMFAOO0881-28-15 09:37:00 Test Item Value Reference Range Interpretation Comments Eosinophils (test code = 1.6 See_Comment [A utomated message] The Eosinophils) system which ge nerated this result tra nsmitted reference range : <=4.0. The reference r jose guadalupe was not used to int erpret this result as normal/abnormal . [facility] HospitalKnyqcsgVEQDUKDCLF3459-43-99 09:37:00 Test Item Value Reference Range Interpretation Comments Basophils (test code = 0.2 See_Comment [Aut omated message] The Basophils) system which ge nerated this result tra nsmitted reference range : <=1.0. The reference r jose guadalupe was not used to int erpret this result as normal/abnormal . [facility] HospitalObbunylSLRGUCMAUO5576-81-81 09:37:00 Test Item Value Reference Range Interpretation Comments Neutrophils # (test code = Neutrophils 9.7 1.5-8.1 #) [facility] HospitalWobvlycVVYITYISEF7935-98-97 09:37:00 Test Item Value Reference Range Interpretation Comments Lymphocytes # (test code = Lymphocytes 1.6 1.0-5.5 #) [facility] HospitalFqtiznxRESCJISUBF4235-64-62 09:37:00 Test Item Value Reference Range Interpretation Comments Monocytes # (test code 1.5 See_Comment [Aut omated message] The = Monocytes #) system which generated this result tra nsmitted reference range : <=0.8. The reference r jose guadalupe was not used to int erpret this result as normal/abnormal . [facility] HospitalEklyiscBQPUYPJXYR4047-99-98 09:37:00 Test Item Value Reference Range Interpretation Comments Eosinophils # (test code 0.2 See_Comment [A utomated message] The = Eosinophils #) system whic h generated this result tra nsmitted reference range : <=0.5. The reference r jose guadalupe was not used to int erpret this result as normal/abnormal . [facility] HospitalJvehjltLMJIZHNAGB1623-07-71 09:37:00 Test Item Value Reference Range Interpretation Comments WBC (test code = WBC) 13.0 3.7-10.4 [facility] HospitalUyvoxhsNADIDJUGEB3131-48-69 09:37:00 Test Item Value Reference Range Interpretation Comments RBC (test code = RBC) 3.37 4.70-6.10 [facility] HospitalDladieiMNVJBSJPZV2816-12-97 09:37:00 Test Item Value Reference Range Interpretation Comments Hgb (test code = Hgb) 11.5 14.0-18.0 [facility] HospitalZbjuxhpEHDDOQCDBY3893-40-19 09:37:00 Test Item Value Reference Range Interpretation Comments Hct (test code = Hct) 33.6 42.0-54.0 [facility] HospitalIupbyyxCXHOSHCWAY5284-56-87 09:37:00 Test Item Value Reference Range Interpretation Comments MCV (test code = MCV) 99.7 80.0-94.0 [facility] HospitalUdkiycrFFGYJSZSOY5594-82-67 09:37:00 Test Item Value Reference Range Interpretation Comments MCH (test code = MCH) 34.2 pg 27.0-31.0 [facility] HospitalUqzreydKSOLPQEIJP2039-55-89 09:37:00 Test Item Value Reference Range Interpretation Comments MCHC (test code = MCHC) 34.3 32.0-36.0 [facility] HospitalMhhebxhPPQROATSML3625-55-84 09:37:00 Test Item Value Reference Range Interpretation Comments RDW (test code = RDW) 13.2 11.5-14.5 [facility] HospitalUxandclWTGEJLIOOL5507-08-63 09:37:00 Test Item Value Reference Range Interpretation Comments Platelet (test code = Platelet) 175 133-450 [facility]JDUTAACFL7602-75-18 09:37:00 Test Item Value Reference Range Interpretation Comments MPV (test code = MPV) 7.2 7.4-10.4 [place] 870830-10-04 09:37:00 Test Item Value Reference Range Interpretation Comments Glucose Lvl (test code = Glucose Lvl) 106 70-99 [place] 870830-10-04 09:37:00 Test Item Value Reference Range Interpretation Comments BUN (test code = BUN) 8 7-22 [place] 870830-10-04 09:37:00 Test Item Value Reference Range Interpretation Comments Creatinine Lvl (test code = Creatinine 0.65 0.50-1.40 Lvl) [facility]2020-10-04 09:37:00 Test Item Value Reference Range Interpretation Comments Sodium Lvl (test code = Sodium Lvl) 137 135-145 [place] 870830-10-04 09:37:00 Test Item Value Reference Range Interpretation Comments Potassium Lvl (test code = Potassium 3.1 3.5-5.1 Lvl) [facility]2020-10-04 09:37:00 Test Item Value Reference Range Interpretation Comments Chloride Lvl (test code = Chloride Lvl) 102 95-109 [facility]2020-10-04 09:37:00 Test Item Value Reference Range Interpretation Comments CO2 (test code = CO2) 26 24-32 [place] 870830-10-04 09:37:00 Test Item Value Reference Range Interpretation Comments Calcium Lvl (test code = Calcium Lvl) 8.2 8.5-10.5 [place] 870830-10-04 09:37:00 Test Item Value Reference Range Interpretation Comments Total Protein (test code = Total 6.4 6.4-8.4 Protein) [place] 870830-10-04 09:37:00 Test Item Value Reference Range Interpretation Comments Albumin Lvl (test code = Albumin Lvl) 2.3 3.5-5.0 [facility]2020-10-04 09:37:00 Test Item Value Reference Range Interpretation Comments ALT (test code = ALT) 76 See_Comment [Auto mated message] The system which ge nerated this result transmit mary carmen reference range : <=65. The reference range was not used to interpr et this result as casey l/abnormal. [facility] [employer] BZFBS2051-88-47 09:37:00 Test Item Value Reference Range Interpretation Comments AST (test code = AST) 86 See_Comment [Auto mated message] The system which ge nerated this result transmit mary carmen reference range : <=37. The reference range was not used to interpr et this result as casey l/abnormal. [facility] [employer] [id number] 09:37:00 Test Item Value Reference Range Interpretation Comments Alk Phos (test code = Alk Phos) 85 39-136 [facility]-10-04 09:37:00 Test Item Value Reference Range Interpretation Comments Bili Total (test code = Bili Total) 0.8 0.2-1.3 [facility] [employer] IGGTI5929-01-12 09:37:00 Test Item Value Reference Range Interpretation Comments AGAP (test code = AGAP) 12.1 10.0-20.0 [facility] [employer] AORZJ2355-30-64 09:37:00 Test Item Value Reference Range Interpretation Comments B/C Ratio (test code = B/C Ratio) 12 1 6-25 [facility] [employer] [id number] 09:37:00 Test Item Value Reference Range Interpretation Comments Globulin (test code = Globulin) 4.1 2.7-4.2 [facility] [employer] HEPOQ6024-14-23 09:37:00 Test Item Value Reference Range Interpretation Comments A/G Ratio (test code = A/G Ratio) 0.6 1 0.7-1.6 [facility] [employer] [id number] 09:37:00 Test Item Value Reference Range Interpretation Comments eGFR (test code = eGFR) 131 [facility] OdttdymBULXSZBGAB4605-42-00 09:37:00 Test Item Value Reference Range Interpretation Comments Segs (test code = Segs) 74.5 45.0-75.0 [facility] EvyiicwWTGGAIAPDO2667-28-74 09:37:00 Test Item Value Reference Range Interpretation Comments Lymphocytes (test code = Lymphocytes) 12.0 20.0-40.0 [facility] RvroljkOEOBLRPHCG7094-02-21 09:37:00 Test Item Value Reference Range Interpretation Comments Monocytes (test code = Monocytes) 11.7 2.0-12.0 [facility] HospitalWwudwuhBJAZYWCHUN7289-71-47 09:37:00 Test Item Value Reference Range Interpretation Comments Eosinophils (test code = 1.6 See_Comment [A utomated message] The Eosinophils) system which ge nerated this result tra nsmitted reference range : <=4.0. The reference r jose guadalupe was not used to int erpret this result as normal/abnormal . [facility] HospitalDhrllfqJYGJEIIOZW5101-56-04 09:37:00 Test Item Value Reference Range Interpretation Comments Basophils (test code = 0.2 See_Comment [Aut omated message] The Basophils) system which ge nerated this result tra nsmitted reference range : <=1.0. The reference r jose guadalupe was not used to int erpret this result as normal/abnormal . [facility] HospitalLnucqheSPSDOKLJDX8920-65-09 09:37:00 Test Item Value Reference Range Interpretation Comments Neutrophils # (test code = Neutrophils 9.7 1.5-8.1 #) [facility] HospitalFpkerfuZLFIUGSBTY6601-89-66 09:37:00 Test Item Value Reference Range Interpretation Comments Lymphocytes # (test code = Lymphocytes 1.6 1.0-5.5 #) [facility] HospitalXlbuwzsHPODHWELZP1841-09-60 09:37:00 Test Item Value Reference Range Interpretation Comments Monocytes # (test code 1.5 See_Comment [Aut omated message] The = Monocytes #) system which generated this result tra nsmitted reference range : <=0.8. The reference r jose guadalupe was not used to int erpret this result as normal/abnormal . [facility] HospitalQctxxalHHXOJKOPCY7610-84-64 09:37:00 Test Item Value Reference Range Interpretation Comments Eosinophils # (test code 0.2 See_Comment [A utomated message] The = Eosinophils #) system whic h generated this result tra nsmitted reference range : <=0.5. The reference r jose guadalupe was not used to int erpret this result as normal/abnormal . [facility] HospitalSmnqrvfCTJULPDQML9092-36-56 09:37:00 Test Item Value Reference Range Interpretation Comments WBC (test code = WBC) 13.0 3.7-10.4 [place] [address]-10-04 09:37:00 Test Item Value Reference Range Interpretation Comments RBC (test code = RBC) 3.37 4.70-6.10 [place] 818210-10-04 09:37:00 Test Item Value Reference Range Interpretation Comments Hgb (test code = Hgb) 11.5 14.0-18.0 [place] 818210-10-04 09:37:00 Test Item Value Reference Range Interpretation Comments Hct (test code = Hct) 33.6 42.0-54.0 [place] [address]-10-04 09:37:00 Test Item Value Reference Range Interpretation Comments MCV (test code = MCV) 99.7 80.0-94.0 [place] [address]-10-04 09:37:00 Test Item Value Reference Range Interpretation Comments MCH (test code = MCH) 34.2 pg 27.0-31.0 [place] [address]-10-04 09:37:00 Test Item Value Reference Range Interpretation Comments MCHC (test code = MCHC) 34.3 32.0-36.0 [place] 818210-10-04 09:37:00 Test Item Value Reference Range Interpretation Comments RDW (test code = RDW) 13.2 11.5-14.5 [facility] HospitalIjoufpsKEHDZGQYAW6771-07-43 09:37:00 Test Item Value Reference Range Interpretation Comments Platelet (test code = Platelet) 175 133-450 [facility] HospitalSdznajwUUEKEHKFOF2485-73-35 09:37:00 Test Item Value Reference Range Interpretation Comments MPV (test code = MPV) 7.2 7.4-10.4 [facility]2020-10-04 09:37:00 Test Item Value Reference Range Interpretation Comments Glucose Lvl (test code = Glucose Lvl) 106 70-99 [facility]2020-10-04 09:37:00 Test Item Value Reference Range Interpretation Comments BUN (test code = BUN) 8 7-22 [facility]2020-10-04 09:37:00 Test Item Value Reference Range Interpretation Comments Creatinine Lvl (test code = Creatinine 0.65 0.50-1.40 Lvl) [facility]2020-10-04 09:37:00 Test Item Value Reference Range Interpretation Comments Sodium Lvl (test code = Sodium Lvl) 137 135-145 [facility]2020-10-04 09:37:00 Test Item Value Reference Range Interpretation Comments Potassium Lvl (test code = Potassium 3.1 3.5-5.1 Lvl) [place] [address]-10-04 09:37:00 Test Item Value Reference Range Interpretation Comments Chloride Lvl (test code = Chloride Lvl) 102 95-109 [place] [address]-10-04 09:37:00 Test Item Value Reference Range Interpretation Comments CO2 (test code = CO2) 26 24-32 [place] [address]-10-04 09:37:00 Test Item Value Reference Range Interpretation Comments Calcium Lvl (test code = Calcium Lvl) 8.2 8.5-10.5 [place] [address]-10-04 09:37:00 Test Item Value Reference Range Interpretation Comments Total Protein (test code = Total 6.4 6.4-8.4 Protein) [place] [address]-10-04 09:37:00 Test Item Value Reference Range Interpretation Comments Albumin Lvl (test code = Albumin Lvl) 2.3 3.5-5.0 [place] [address]-10-04 09:37:00 Test Item Value Reference Range Interpretation Comments ALT (test code = ALT) 76 See_Comment [Auto mated message] The system which ge nerated this result transmit mary carmen reference range : <=65. The reference range was not used to interpr et this result as casey l/abnormal. [place] [address]-10-04 09:37:00 Test Item Value Reference Range Interpretation Comments AST (test code = AST) 86 See_Comment [Auto mated message] The system which ge nerated this result transmit mary carmen reference range : <=37. The reference range was not used to interpr et this result as casey l/abnormal. [place] [address]-10-04 09:37:00 Test Item Value Reference Range Interpretation Comments Alk Phos (test code = Alk Phos) 85 39-136 [place] [address]-10-04 09:37:00 Test Item Value Reference Range Interpretation Comments Bili Total (test code = Bili Total) 0.8 0.2-1.3 [place] [address]-10-04 09:37:00 Test Item Value Reference Range Interpretation Comments AGAP (test code = AGAP) 12.1 10.0-20.0 [place] [address]-10-04 09:37:00 Test Item Value Reference Range Interpretation Comments B/C Ratio (test code = B/C Ratio) 12 1 6-25 [place] [address]-10-04 09:37:00 Test Item Value Reference Range Interpretation Comments Globulin (test code = Globulin) 4.1 2.7-4.2 [place] [address]-10-04 09:37:00 Test Item Value Reference Range Interpretation Comments A/G Ratio (test code = A/G Ratio) 0.6 1 0.7-1.6 [place] [address]-10-04 09:37:00 Test Item Value Reference Range Interpretation Comments eGFR (test code = eGFR) 131 [place] [address]-10-04 09:37:00 Test Item Value Reference Range Interpretation Comments Segs (test code = Segs) 74.5 45.0-75.0 [place] [address]-10-04 09:37:00 Test Item Value Reference Range Interpretation Comments Lymphocytes (test code = Lymphocytes) 12.0 20.0-40.0 [place] [address]-10-04 09:37:00 Test Item Value Reference Range Interpretation Comments Monocytes (test code = Monocytes) 11.7 2.0-12.0 [place] [address]-10-04 09:37:00 Test Item Value Reference Range Interpretation Comments Eosinophils (test code = 1.6 See_Comment [A utomated message] The Eosinophils) system which ge nerated this result tra nsmitted reference range : <=4.0. The reference r jose guadalupe was not used to int erpret this result as normal/abnormal . [place] [address]-10-04 09:37:00 Test Item Value Reference Range Interpretation Comments Basophils (test code = 0.2 See_Comment [Aut omated message] The Basophils) system which ge nerated this result tra nsmitted reference range : <=1.0. The reference r jose guadalupe was not used to int erpret this result as normal/abnormal . [place] [address]-10-04 09:37:00 Test Item Value Reference Range Interpretation Comments Neutrophils # (test code = Neutrophils 9.7 1.5-8.1 #) [place] 818210-10-04 09:37:00 Test Item Value Reference Range Interpretation Comments Lymphocytes # (test code = Lymphocytes 1.6 1.0-5.5 #) [facility] HospitalNwtdkarZPTPWNUUHX3102-31-20 09:37:00 Test Item Value Reference Range Interpretation Comments Monocytes # (test code 1.5 See_Comment [Aut omated message] The = Monocytes #) system which generated this result tra nsmitted reference range : <=0.8. The reference r jose guadalupe was not used to int erpret this result as normal/abnormal . [facility] HospitalQvtrwgfCHMCXIASTK4428-57-69 09:37:00 Test Item Value Reference Range Interpretation Comments Eosinophils # (test code 0.2 See_Comment [A utomated message] The = Eosinophils #) system whic h generated this result tra nsmitted reference range : <=0.5. The reference r jose guadalupe was not used to int erpret this result as normal/abnormal . [facility] HospitalXnctikwVAAGERJZHW1164-26-76 09:37:00 Test Item Value Reference Range Interpretation Comments WBC (test code = WBC) 13.0 3.7-10.4 [facility] HospitalSdzxkyvEVLSQIDIGY8717-05-60 09:37:00 Test Item Value Reference Range Interpretation Comments RBC (test code = RBC) 3.37 4.70-6.10 [facility] HospitalUdkaifpGIGXBZHWZI1026-75-81 09:37:00 Test Item Value Reference Range Interpretation Comments Hgb (test code = Hgb) 11.5 14.0-18.0 [facility] HospitalTffnaleVYLOMWGVAI2404-88-27 09:37:00 Test Item Value Reference Range Interpretation Comments Hct (test code = Hct) 33.6 42.0-54.0 [place] 818210-10-04 09:37:00 Test Item Value Reference Range Interpretation Comments MCV (test code = MCV) 99.7 80.0-94.0 [place] [address]-10-04 09:37:00 Test Item Value Reference Range Interpretation Comments MCH (test code = MCH) 34.2 pg 27.0-31.0 [facility] HospitalCynmrulFHNCYVTOBF9680-08-37 09:37:00 Test Item Value Reference Range Interpretation Comments MCHC (test code = MCHC) 34.3 32.0-36.0 [place] 818210-10-04 09:37:00 Test Item Value Reference Range Interpretation Comments RDW (test code = RDW) 13.2 11.5-14.5 [place] 818210-10-04 09:37:00 Test Item Value Reference Range Interpretation Comments Platelet (test code = Platelet) 175 133-450 [facility] HospitalLgxoxzsSSKTYPDZFN1308-60-81 09:37:00 Test Item Value Reference Range Interpretation Comments MPV (test code = MPV) 7.2 7.4-10.4 [facility]2020-10-04 09:37:00 Test Item Value Reference Range Interpretation Comments Glucose Lvl (test code = Glucose Lvl) 106 70-99 [facility]2020-10-04 09:37:00 Test Item Value Reference Range Interpretation Comments BUN (test code = BUN) 8 7-22 [facility]2020-10-04 09:37:00 Test Item Value Reference Range Interpretation Comments Creatinine Lvl (test code = Creatinine 0.65 0.50-1.40 Lvl) [facility]2020-10-04 09:37:00 Test Item Value Reference Range Interpretation Comments Sodium Lvl (test code = Sodium Lvl) 137 135-145 [facility]2020-10-04 09:37:00 Test Item Value Reference Range Interpretation Comments Potassium Lvl (test code = Potassium 3.1 3.5-5.1 Lvl) [facility]2020-10-04 09:37:00 Test Item Value Reference Range Interpretation Comments Chloride Lvl (test code = Chloride Lvl) 102 95-109 [facility]2020-10-04 09:37:00 Test Item Value Reference Range Interpretation Comments CO2 (test code = CO2) 26 24-32 [facility]2020-10-04 09:37:00 Test Item Value Reference Range Interpretation Comments Calcium Lvl (test code = Calcium Lvl) 8.2 8.5-10.5 [facility]2020-10-04 09:37:00 Test Item Value Reference Range Interpretation Comments Total Protein (test code = Total 6.4 6.4-8.4 Protein) [facility]2020-10-04 09:37:00 Test Item Value Reference Range Interpretation Comments Albumin Lvl (test code = Albumin Lvl) 2.3 3.5-5.0 [facility]2020-10-04 09:37:00 Test Item Value Reference Range Interpretation Comments ALT (test code = ALT) 76 See_Comment [Auto mated message] The system which ge nerated this result transmit mary carmen reference range : <=65. The reference range was not used to interpr et this result as casey l/abnormal. [employer]2020-10-04 09:37:00 Test Item Value Reference Range Interpretation Comments AST (test code = AST) 86 See_Comment [Auto mated message] The system which ge nerated this result transmit mary carmen reference range : <=37. The reference range was not used to interpr et this result as casey l/abnormal. [employer]0-10-04 09:37:00 Test Item Value Reference Range Interpretation Comments Alk Phos (test code = Alk Phos) 85 39-136 [employer]0-10-04 09:37:00 Test Item Value Reference Range Interpretation Comments Bili Total (test code = Bili Total) 0.8 0.2-1.3 [employer]0-10-04 09:37:00 Test Item Value Reference Range Interpretation Comments AGAP (test code = AGAP) 12.1 10.0-20.0 [employer]-10-04 09:37:00 Test Item Value Reference Range Interpretation Comments B/C Ratio (test code = B/C Ratio) 12 1 6-25 [employer]-10-04 09:37:00 Test Item Value Reference Range Interpretation Comments Globulin (test code = Globulin) 4.1 2.7-4.2 [facility] [employer]-10-04 09:37:00 Test Item Value Reference Range Interpretation Comments A/G Ratio (test code = A/G Ratio) 0.6 1 0.7-1.6 [employer]0-10-03 09:35:00 Test Item Value Reference Range Interpretation Comments Glucose Lvl (test code = Glucose Lvl) 97 70-99 [facility] [employer]2020-10-03 09:35:00 Test Item Value Reference Range Interpretation Comments BUN (test code = BUN) 8 7-22 [employer]2020-10-03 09:35:00 Test Item Value Reference Range Interpretation Comments Creatinine Lvl (test code = Creatinine 0.64 0.50-1.40 Lvl) [facility] [id number] 09:35:00 Test Item Value Reference Range Interpretation Comments Sodium Lvl (test code = Sodium Lvl) 134 135-145 [place] 870830-10-03 09:35:00 Test Item Value Reference Range Interpretation Comments Potassium Lvl (test code = Potassium 3.4 3.5-5.1 Lvl) [facility] [id number] 09:35:00 Test Item Value Reference Range Interpretation Comments Chloride Lvl (test code = Chloride Lvl) 100 95-109 [facility]lands[facility] [id number] 09:35:00 Test Item Value Reference Range Interpretation Comments CO2 (test code = CO2) 25 24-32 [facility] [id number] 09:35:00 Test Item Value Reference Range Interpretation Comments Calcium Lvl (test code = Calcium Lvl) 7.9 8.5-10.5 [facility] [id number] 09:35:00 Test Item Value Reference Range Interpretation Comments Total Protein (test code = Total 6.7 6.4-8.4 Protein) [facility] [id number] 09:35:00 Test Item Value Reference Range Interpretation Comments Albumin Lvl (test code = Albumin Lvl) 2.5 3.5-5.0 [facility] [id number] 09:35:00 Test Item Value Reference Range Interpretation Comments ALT (test code = ALT) 61 See_Comment [Auto mated message] The system which ge nerated this result transmit mary carmen reference range : <=65. The reference range was not used to interpr et this result as casey l/abnormal. [facility] [id number] 09:35:00 Test Item Value Reference Range Interpretation Comments AST (test code = AST) 59 See_Comment [Auto mated message] The system which ge nerated this result transmit mary carmen reference range : <=37. The reference range was not used to interpr et this result as casey l/abnormal. [facility] [id number] 09:35:00 Test Item Value Reference Range Interpretation Comments Alk Phos (test code = Alk Phos) 81 39-136 [facility] [id number] 09:35:00 Test Item Value Reference Range Interpretation Comments Bili Total (test code = Bili Total) 1.0 0.2-1.3 [facility]2020-10-03 09:35:00 Test Item Value Reference Range Interpretation Comments AGAP (test code = AGAP) 12.4 10.0-20.0 [facility]2020-10-03 09:35:00 Test Item Value Reference Range Interpretation Comments B/C Ratio (test code = B/C Ratio) 12 1 6-25 [place] 870830-10-03 09:35:00 Test Item Value Reference Range Interpretation Comments Globulin (test code = Globulin) 4.2 2.7-4.2 [facility]2020-10-03 09:35:00 Test Item Value Reference Range Interpretation Comments A/G Ratio (test code = A/G Ratio) 0.6 1 0.7-1.6 [place] 870830-10-03 09:35:00 Test Item Value Reference Range Interpretation Comments eGFR (test code = eGFR) 132 [facility] HospitalPwmpsryMEYWGADLES1351-82-96 09:35:00 Test Item Value Reference Range Interpretation Comments WBC (test code = WBC) 13.6 3.7-10.4 [place] 818210-10-03 09:35:00 Test Item Value Reference Range Interpretation Comments RBC (test code = RBC) 3.46 4.70-6.10 [facility] HospitalXyuaqsdSATYPDGASU5143-36-70 09:35:00 Test Item Value Reference Range Interpretation Comments Hgb (test code = Hgb) 12.1 14.0-18.0 [place] [address]-10-03 09:35:00 Test Item Value Reference Range Interpretation Comments Hct (test code = Hct) 34.4 42.0-54.0 [place] [address]-10-03 09:35:00 Test Item Value Reference Range Interpretation Comments MCV (test code = MCV) 99.3 80.0-94.0 [place] [address]-10-03 09:35:00 Test Item Value Reference Range Interpretation Comments MCH (test code = MCH) 34.9 pg 27.0-31.0 [place] [address]-10-03 09:35:00 Test Item Value Reference Range Interpretation Comments MCHC (test code = MCHC) 35.1 32.0-36.0 [place] [address]-10-03 09:35:00 Test Item Value Reference Range Interpretation Comments RDW (test code = RDW) 12.9 11.5-14.5 [place] [address]-10-03 09:35:00 Test Item Value Reference Range Interpretation Comments Platelet (test code = Platelet) 143 133-450 [place] [address]-10-03 09:35:00 Test Item Value Reference Range Interpretation Comments MPV (test code = MPV) 7.4 7.4-10.4 [place] [address]-10-03 09:35:00 Test Item Value Reference Range Interpretation Comments Segs (test code = Segs) 81.3 45.0-75.0 [place] [address]-10-03 09:35:00 Test Item Value Reference Range Interpretation Comments Lymphocytes (test code = Lymphocytes) 8.6 20.0-40.0 [place] [address]-10-03 09:35:00 Test Item Value Reference Range Interpretation Comments Monocytes (test code = Monocytes) 9.7 2.0-12.0 [place] [address]-10-03 09:35:00 Test Item Value Reference Range Interpretation Comments Eosinophils (test code = 0.2 See_Comment [A utomated message] The Eosinophils) system which ge nerated this result tra nsmitted reference range : <=4.0. The reference r jose guadalupe was not used to int erpret this result as normal/abnormal . [facility] HospitalBsjzjleQATQTVQGEG0250-89-22 09:35:00 Test Item Value Reference Range Interpretation Comments Basophils (test code = 0.2 See_Comment [Aut omated message] The Basophils) system which ge nerated this result tra nsmitted reference range : <=1.0. The reference r jose guadalupe was not used to int erpret this result as normal/abnormal . [place] [address]-10-03 09:35:00 Test Item Value Reference Range Interpretation Comments Neutrophils # (test code = Neutrophils 11.1 1.5-8.1 #) [place] [address]-10-03 09:35:00 Test Item Value Reference Range Interpretation Comments Lymphocytes # (test code = Lymphocytes 1.2 1.0-5.5 #) [facility]X85[facility]-72 09:35:00 Test Item Value Reference Range Interpretation Comments Monocytes # (test code 1.3 See_Comment [Aut omated message] The = Monocytes #) system which generated this result tra nsmitted reference range : <=0.8. The reference r jose guadalupe was not used to int erpret this result as normal/abnormal . [place] 870830-10-03 09:35:00 Test Item Value Reference Range Interpretation Comments Glucose Lvl (test code = Glucose Lvl) 97 70-99 [place] 870830-10-03 09:35:00 Test Item Value Reference Range Interpretation Comments BUN (test code = BUN) 8 7-22 [place] [address]-10-03 09:35:00 Test Item Value Reference Range Interpretation Comments Creatinine Lvl (test code = Creatinine 0.64 0.50-1.40 Lvl) [place] 870830-10-03 09:35:00 Test Item Value Reference Range Interpretation Comments Sodium Lvl (test code = Sodium Lvl) 134 135-145 [place] [address]-10-03 09:35:00 Test Item Value Reference Range Interpretation Comments Potassium Lvl (test code = Potassium 3.4 3.5-5.1 Lvl) [place] 870830-10-03 09:35:00 Test Item Value Reference Range Interpretation Comments Chloride Lvl (test code = Chloride Lvl) 100 95-109 [place] 870830-10-03 09:35:00 Test Item Value Reference Range Interpretation Comments CO2 (test code = CO2) 25 24-32 [place] [address]-10-03 09:35:00 Test Item Value Reference Range Interpretation Comments Calcium Lvl (test code = Calcium Lvl) 7.9 8.5-10.5 [place] [address]-10-03 09:35:00 Test Item Value Reference Range Interpretation Comments Total Protein (test code = Total 6.7 6.4-8.4 Protein) [place] 870830-10-03 09:35:00 Test Item Value Reference Range Interpretation Comments Albumin Lvl (test code = Albumin Lvl) 2.5 3.5-5.0 [place] 870830-10-03 09:35:00 Test Item Value Reference Range Interpretation Comments ALT (test code = ALT) 61 See_Comment [Auto mated message] The system which ge nerated this result transmit mary carmen reference range : <=65. The reference range was not used to interpr et this result as casey l/abnormal. [facility] [employer] [id number] 09:35:00 Test Item Value Reference Range Interpretation Comments AST (test code = AST) 59 See_Comment [Auto mated message] The system which ge nerated this result transmit mary carmen reference range : <=37. The reference range was not used to interpr et this result as casey l/abnormal. [facility] [employer] [id number] 09:35:00 Test Item Value Reference Range Interpretation Comments Alk Phos (test code = Alk Phos) 81 39-136 [facility] [employer] [id number] 09:35:00 Test Item Value Reference Range Interpretation Comments Bili Total (test code = Bili Total) 1.0 0.2-1.3 [facility] [employer] [id number] 09:35:00 Test Item Value Reference Range Interpretation Comments AGAP (test code = AGAP) 12.4 10.0-20.0 [facility] [employer] [id number] 09:35:00 Test Item Value Reference Range Interpretation Comments B/C Ratio (test code = B/C Ratio) 12 1 6-25 [facility] [id number] 09:35:00 Test Item Value Reference Range Interpretation Comments Globulin (test code = Globulin) 4.2 2.7-4.2 [facility] [employer] [id number] 09:35:00 Test Item Value Reference Range Interpretation Comments A/G Ratio (test code = A/G Ratio) 0.6 1 0.7-1.6 [facility] [employer] [id number] 09:35:00 Test Item Value Reference Range Interpretation Comments eGFR (test code = eGFR) 132 [facility]landsIwpukfeDRCYAIHDMK3291-01-64 09:35:00 Test Item Value Reference Range Interpretation Comments WBC (test code = WBC) 13.6 3.7-10.4 [facility]landsKvqpjwmPLVJPZFJKS4486-31-92 09:35:00 Test Item Value Reference Range Interpretation Comments RBC (test code = RBC) 3.46 4.70-6.10 [place] [address]-10-03 09:35:00 Test Item Value Reference Range Interpretation Comments Hgb (test code = Hgb) 12.1 14.0-18.0 [place] [address]-10-03 09:35:00 Test Item Value Reference Range Interpretation Comments Hct (test code = Hct) 34.4 42.0-54.0 [place] [address]-10-03 09:35:00 Test Item Value Reference Range Interpretation Comments MCV (test code = MCV) 99.3 80.0-94.0 [place] [address]-10-03 09:35:00 Test Item Value Reference Range Interpretation Comments MCH (test code = MCH) 34.9 pg 27.0-31.0 [place] [address]-10-03 09:35:00 Test Item Value Reference Range Interpretation Comments MCHC (test code = MCHC) 35.1 32.0-36.0 [place] [address]-10-03 09:35:00 Test Item Value Reference Range Interpretation Comments RDW (test code = RDW) 12.9 11.5-14.5 [place] [address]-10-03 09:35:00 Test Item Value Reference Range Interpretation Comments Platelet (test code = Platelet) 143 133-450 [facility] HospitalMzglmdqNVAPSPCWLP7575-39-60 09:35:00 Test Item Value Reference Range Interpretation Comments MPV (test code = MPV) 7.4 7.4-10.4 [place] [address]-10-03 09:35:00 Test Item Value Reference Range Interpretation Comments Segs (test code = Segs) 81.3 45.0-75.0 [place] [address]-10-03 09:35:00 Test Item Value Reference Range Interpretation Comments Lymphocytes (test code = Lymphocytes) 8.6 20.0-40.0 [place] [address]-10-03 09:35:00 Test Item Value Reference Range Interpretation Comments Monocytes (test code = Monocytes) 9.7 2.0-12.0 [place] [address]-10-03 09:35:00 Test Item Value Reference Range Interpretation Comments Eosinophils (test code = 0.2 See_Comment [A utomated message] The Eosinophils) system which ge nerated this result tra nsmitted reference range : <=4.0. The reference r jose guadalupe was not used to int erpret this result as normal/abnormal . [place] [address]-10-03 09:35:00 Test Item Value Reference Range Interpretation Comments Basophils (test code = 0.2 See_Comment [Aut omated message] The Basophils) system which ge nerated this result tra nsmitted reference range : <=1.0. The reference r jose guadalupe was not used to int erpret this result as normal/abnormal . [place] [address]-10-03 09:35:00 Test Item Value Reference Range Interpretation Comments Neutrophils # (test code = Neutrophils 11.1 1.5-8.1 #) [place] 818210-10-03 09:35:00 Test Item Value Reference Range Interpretation Comments Lymphocytes # (test code = Lymphocytes 1.2 1.0-5.5 #) [place] [address]-10-03 09:35:00 Test Item Value Reference Range Interpretation Comments Monocytes # (test code 1.3 See_Comment [Aut omated message] The = Monocytes #) system which generated this result tra nsmitted reference range : <=0.8. The reference r jose guadalupe was not used to int erpret this result as normal/abnormal . [place] 870830-10-03 09:35:00 Test Item Value Reference Range Interpretation Comments BUN (test code = BUN) 8 7-22 [place] [address]-10-03 09:35:00 Test Item Value Reference Range Interpretation Comments Creatinine Lvl (test code = Creatinine 0.64 0.50-1.40 Lvl) [place] 870830-10-03 09:35:00 Test Item Value Reference Range Interpretation Comments Sodium Lvl (test code = Sodium Lvl) 134 135-145 [place] [address]-10-03 09:35:00 Test Item Value Reference Range Interpretation Comments Potassium Lvl (test code = Potassium 3.4 3.5-5.1 Lvl) [place] [address]-10-03 09:35:00 Test Item Value Reference Range Interpretation Comments Chloride Lvl (test code = Chloride Lvl) 100 95-109 [place] [address]-10-03 09:35:00 Test Item Value Reference Range Interpretation Comments CO2 (test code = CO2) 25 24-32 [facility] [employer] [id number] 09:35:00 Test Item Value Reference Range Interpretation Comments Calcium Lvl (test code = Calcium Lvl) 7.9 8.5-10.5 [facility] [employer] [id number] 09:35:00 Test Item Value Reference Range Interpretation Comments Total Protein (test code = Total 6.7 6.4-8.4 Protein) [facility] [employer] [id number] 09:35:00 Test Item Value Reference Range Interpretation Comments Albumin Lvl (test code = Albumin Lvl) 2.5 3.5-5.0 [facility] [employer] [id number] 09:35:00 Test Item Value Reference Range Interpretation Comments ALT (test code = ALT) 61 See_Comment [Auto mated message] The system which ge nerated this result transmit mary carmen reference range : <=65. The reference range was not used to interpr et this result as casey l/abnormal. [facility] [employer] [id number] 09:35:00 Test Item Value Reference Range Interpretation Comments AST (test code = AST) 59 See_Comment [Auto mated message] The system which ge nerated this result transmit mary carmen reference range : <=37. The reference range was not used to interpr et this result as casey l/abnormal. [facility] [employer] [id number] 09:35:00 Test Item Value Reference Range Interpretation Comments Alk Phos (test code = Alk Phos) 81 39-136 [facility] [employer] [id number] 09:35:00 Test Item Value Reference Range Interpretation Comments Bili Total (test code = Bili Total) 1.0 0.2-1.3 [facility] [employer] [id number] 09:35:00 Test Item Value Reference Range Interpretation Comments AGAP (test code = AGAP) 12.4 10.0-20.0 [facility] [employer] [id number] 09:35:00 Test Item Value Reference Range Interpretation Comments B/C Ratio (test code = B/C Ratio) 12 1 6-25 [facility] [employer] [id number] 09:35:00 Test Item Value Reference Range Interpretation Comments Globulin (test code = Globulin) 4.2 2.7-4.2 [facility] [employer] [id number] 09:35:00 Test Item Value Reference Range Interpretation Comments A/G Ratio (test code = A/G Ratio) 0.6 1 0.7-1.6 [facility] [id number] 09:35:00 Test Item Value Reference Range Interpretation Comments eGFR (test code = eGFR) 132 [facility]KwlniarZRKJVFSRLR8149-65-64 09:35:00 Test Item Value Reference Range Interpretation Comments WBC (test code = WBC) 13.6 3.7-10.4 [facility]landsPmjwufhJNBDFYSPOX9837-63-97 09:35:00 Test Item Value Reference Range Interpretation Comments RBC (test code = RBC) 3.46 4.70-6.10 [facility]YiethrdRKLKBTDXEP9171-83-94 09:35:00 Test Item Value Reference Range Interpretation Comments Hgb (test code = Hgb) 12.1 14.0-18.0 [facility] CenterFbuufbfZIXACTWIEP9059-09-25 09:35:00 Test Item Value Reference Range Interpretation Comments Hct (test code = Hct) 34.4 42.0-54.0 [facility] CenterSjfrvjsBLUFFNKKUV4211-66-16 09:35:00 Test Item Value Reference Range Interpretation Comments MCV (test code = MCV) 99.3 80.0-94.0 [facility]landsGrkhwyaBZGNPOHJBY1224-20-30 09:35:00 Test Item Value Reference Range Interpretation Comments MCH (test code = MCH) 34.9 pg 27.0-31.0 [facility] CenterLdjnlvsVWWELEGDYK0639-10-44 09:35:00 Test Item Value Reference Range Interpretation Comments MCHC (test code = MCHC) 35.1 32.0-36.0 [facility] CenterKqrjpluZKZIERIFFL6260-72-80 09:35:00 Test Item Value Reference Range Interpretation Comments RDW (test code = RDW) 12.9 11.5-14.5 [facility] CenterSeicptnYXHEVNOOOG8179-92-69 09:35:00 Test Item Value Reference Range Interpretation Comments Platelet (test code = Platelet) 143 133-450 [facility] CenterLoszuoeMTSUPSXPKX5969-18-20 09:35:00 Test Item Value Reference Range Interpretation Comments MPV (test code = MPV) 7.4 7.4-10.4 [facility] CenterIpeqczsBRRSAOWIUD6302-44-63 09:35:00 Test Item Value Reference Range Interpretation Comments Segs (test code = Segs) 81.3 45.0-75.0 [facility] HospitalXuyewljKUGFZYFMVS0078-08-51 09:35:00 Test Item Value Reference Range Interpretation Comments Lymphocytes (test code = Lymphocytes) 8.6 20.0-40.0 [facility] HospitalRgvpbbaOZWFCKVCYW4438-20-30 09:35:00 Test Item Value Reference Range Interpretation Comments Monocytes (test code = Monocytes) 9.7 2.0-12.0 [facility] HospitalXpevrwxADCLHSUAUX2739-07-13 09:35:00 Test Item Value Reference Range Interpretation Comments Eosinophils (test code = 0.2 See_Comment [A utomated message] The Eosinophils) system which ge nerated this result tra nsmitted reference range : <=4.0. The reference r jose guadalupe was not used to int erpret this result as normal/abnormal . [facility] HospitalUjttiwyFVCLJCTNCO4599-01-68 09:35:00 Test Item Value Reference Range Interpretation Comments Basophils (test code = 0.2 See_Comment [Aut omated message] The Basophils) system which ge nerated this result tra nsmitted reference range : <=1.0. The reference r jose guadalupe was not used to int erpret this result as normal/abnormal . [facility] HospitalZtdcyilCFNMYIEXTK9952-80-19 09:35:00 Test Item Value Reference Range Interpretation Comments Neutrophils # (test code = Neutrophils 11.1 1.5-8.1 #) [place] 818210-10-03 09:35:00 Test Item Value Reference Range Interpretation Comments Lymphocytes # (test code = Lymphocytes 1.2 1.0-5.5 #) [place] 818210-10-03 09:35:00 Test Item Value Reference Range Interpretation Comments Monocytes # (test code 1.3 See_Comment [Aut omated message] The = Monocytes #) system which generated this result tra nsmitted reference range : <=0.8. The reference r jose guadalupe was not used to int erpret this result as normal/abnormal . [facility] CenterMeta[facility] [id number] 09:35:00 Test Item Value Reference Range Interpretation Comments Glucose Lvl (test code = Glucose Lvl) 97 70-99 [facility] [id number] 09:44:00 Test Item Value Reference Range Interpretation Comments Glucose Lvl (test code = Glucose Lvl) 122 70-99 [place] 870830-10-02 09:44:00 Test Item Value Reference Range Interpretation Comments BUN (test code = BUN) 11 7-22 [place] 870830-10-02 09:44:00 Test Item Value Reference Range Interpretation Comments Creatinine Lvl (test code = Creatinine 0.80 0.50-1.40 Lvl) [place] 870830-10-02 09:44:00 Test Item Value Reference Range Interpretation Comments Sodium Lvl (test code = Sodium Lvl) 137 135-145 [place] 870830-10-02 09:44:00 Test Item Value Reference Range Interpretation Comments Potassium Lvl (test code = Potassium 3.4 3.5-5.1 Lvl) [place] 870830-10-02 09:44:00 Test Item Value Reference Range Interpretation Comments Chloride Lvl (test code = Chloride Lvl) 103 95-109 [place] 870830-10-02 09:44:00 Test Item Value Reference Range Interpretation Comments CO2 (test code = CO2) 24 24-32 [place] [address]-10-02 09:44:00 Test Item Value Reference Range Interpretation Comments Calcium Lvl (test code = Calcium Lvl) 8.0 8.5-10.5 [place] 870830-10-02 09:44:00 Test Item Value Reference Range Interpretation Comments Total Protein (test code = Total 6.5 6.4-8.4 Protein) [place] 870830-10-02 09:44:00 Test Item Value Reference Range Interpretation Comments Albumin Lvl (test code = Albumin Lvl) 2.7 3.5-5.0 [place] 870830-10-02 09:44:00 Test Item Value Reference Range Interpretation Comments ALT (test code = ALT) 76 See_Comment [Auto mated message] The system which ge nerated this result transmit mary carmen reference range : <=65. The reference range was not used to interpr et this result as casey l/abnormal. [place] 870830-10-02 09:44:00 Test Item Value Reference Range Interpretation Comments AST (test code = AST) 68 See_Comment [Auto mated message] The system which ge nerated this result transmit mary carmen reference range : <=37. The reference range was not used to interpr et this result as casey l/abnormal. [facility]2020-10-02 09:44:00 Test Item Value Reference Range Interpretation Comments Alk Phos (test code = Alk Phos) 68 39-136 [facility]2020-10-02 09:44:00 Test Item Value Reference Range Interpretation Comments Bili Total (test code = Bili Total) 1.2 0.2-1.3 [facility]2020-10-02 09:44:00 Test Item Value Reference Range Interpretation Comments AGAP (test code = AGAP) 13.4 10.0-20.0 [place] 870830-10-02 09:44:00 Test Item Value Reference Range Interpretation Comments B/C Ratio (test code = B/C Ratio) 14 1 6-25 [place] 870830-10-02 09:44:00 Test Item Value Reference Range Interpretation Comments Globulin (test code = Globulin) 3.8 2.7-4.2 [facility]2020-10-02 09:44:00 Test Item Value Reference Range Interpretation Comments A/G Ratio (test code = A/G Ratio) 0.7 1 0.7-1.6 [place] [address]-10-02 09:44:00 Test Item Value Reference Range Interpretation Comments eGFR (test code = eGFR) 120 [facility] HospitalVdkkyrlNQZAARCYGA0224-75-38 09:44:00 Test Item Value Reference Range Interpretation Comments Segs (test code = Segs) 87.2 45.0-75.0 [facility] HospitalGondrfiFOWJENNFGC2614-42-61 09:44:00 Test Item Value Reference Range Interpretation Comments Lymphocytes (test code = Lymphocytes) 4.9 20.0-40.0 [place] [address]-10-02 09:44:00 Test Item Value Reference Range Interpretation Comments Monocytes (test code = Monocytes) 7.7 2.0-12.0 [place] [address]-10-02 09:44:00 Test Item Value Reference Range Interpretation Comments Basophils (test code = 0.2 See_Comment [Aut omated message] The Basophils) system which ge nerated this result tra nsmitted reference range : <=1.0. The reference r jose guadalupe was not used to int erpret this result as normal/abnormal . [place] [address]-10-02 09:44:00 Test Item Value Reference Range Interpretation Comments Neutrophils # (test code = Neutrophils 16.2 1.5-8.1 #) [facility] HospitalRegwoyxXCMHXFRJHZ6935-36-01 09:44:00 Test Item Value Reference Range Interpretation Comments Lymphocytes # (test code = Lymphocytes 0.9 1.0-5.5 #) [place] 818210-10-02 09:44:00 Test Item Value Reference Range Interpretation Comments Monocytes # (test code 1.4 See_Comment [Aut omated message] The = Monocytes #) system which generated this result tra nsmitted reference range : <=0.8. The reference r jose guadalupe was not used to int erpret this result as normal/abnormal . [place] 818210-10-02 09:44:00 Test Item Value Reference Range Interpretation Comments WBC (test code = WBC) 18.6 3.7-10.4 [place] 818210-10-02 09:44:00 Test Item Value Reference Range Interpretation Comments RBC (test code = RBC) 3.91 4.70-6.10 [place] 818210-10-02 09:44:00 Test Item Value Reference Range Interpretation Comments Hgb (test code = Hgb) 13.5 14.0-18.0 [place] 818210-10-02 09:44:00 Test Item Value Reference Range Interpretation Comments Hct (test code = Hct) 38.7 42.0-54.0 [place] [address]-10-02 09:44:00 Test Item Value Reference Range Interpretation Comments MCV (test code = MCV) 99.0 80.0-94.0 [place] [address]-10-02 09:44:00 Test Item Value Reference Range Interpretation Comments MCH (test code = MCH) 34.5 pg 27.0-31.0 [place] 818210-10-02 09:44:00 Test Item Value Reference Range Interpretation Comments MCHC (test code = MCHC) 34.9 32.0-36.0 [place] [address]-10-02 09:44:00 Test Item Value Reference Range Interpretation Comments RDW (test code = RDW) 13.5 11.5-14.5 [place] 818210-10-02 09:44:00 Test Item Value Reference Range Interpretation Comments Platelet (test code = Platelet) 155 133-450 [facility] CenterLfqedrzAQYJCZBUVF9612-32-19 09:44:00 Test Item Value Reference Range Interpretation Comments MPV (test code = MPV) 7.5 7.4-10.4 [facility] CenterXqmfgrhTHDYFS9585-08-28 09:44:00 Test Item Value Reference Range Interpretation Comments Trig (test code = Trig) 320 [facility]2020-10-02 09:44:00 Test Item Value Reference Range Interpretation Comments Glucose Lvl (test code = Glucose Lvl) 122 70-99 [facility]2020-10-02 09:44:00 Test Item Value Reference Range Interpretation Comments BUN (test code = BUN) 11 7-22 [facility]2020-10-02 09:44:00 Test Item Value Reference Range Interpretation Comments Creatinine Lvl (test code = Creatinine 0.80 0.50-1.40 Lvl) [facility]2020-10-02 09:44:00 Test Item Value Reference Range Interpretation Comments Sodium Lvl (test code = Sodium Lvl) 137 135-145 [place] 870830-10-02 09:44:00 Test Item Value Reference Range Interpretation Comments Potassium Lvl (test code = Potassium 3.4 3.5-5.1 Lvl) [facility]2020-10-02 09:44:00 Test Item Value Reference Range Interpretation Comments Chloride Lvl (test code = Chloride Lvl) 103 95-109 [facility]2020-10-02 09:44:00 Test Item Value Reference Range Interpretation Comments CO2 (test code = CO2) 24 24-32 [facility]2020-10-02 09:44:00 Test Item Value Reference Range Interpretation Comments Calcium Lvl (test code = Calcium Lvl) 8.0 8.5-10.5 [facility]2020-10-02 09:44:00 Test Item Value Reference Range Interpretation Comments Total Protein (test code = Total 6.5 6.4-8.4 Protein) [facility]2020-10-02 09:44:00 Test Item Value Reference Range Interpretation Comments Albumin Lvl (test code = Albumin Lvl) 2.7 3.5-5.0 [place] 870830-10-02 09:44:00 Test Item Value Reference Range Interpretation Comments ALT (test code = ALT) 76 See_Comment [Auto mated message] The system which ge nerated this result transmit mary carmen reference range : <=65. The reference range was not used to interpr et this result as casey l/abnormal. [facility] [employer] [id number] 09:44:00 Test Item Value Reference Range Interpretation Comments AST (test code = AST) 68 See_Comment [Auto mated message] The system which ge nerated this result transmit mary carmen reference range : <=37. The reference range was not used to interpr et this result as casey l/abnormal. [facility] [employer] [id number] 09:44:00 Test Item Value Reference Range Interpretation Comments Alk Phos (test code = Alk Phos) 68 39-136 [facility] [employer] [id number] 09:44:00 Test Item Value Reference Range Interpretation Comments Bili Total (test code = Bili Total) 1.2 0.2-1.3 [facility] [employer] [id number] 09:44:00 Test Item Value Reference Range Interpretation Comments AGAP (test code = AGAP) 13.4 10.0-20.0 [facility] [employer] [id number] 09:44:00 Test Item Value Reference Range Interpretation Comments B/C Ratio (test code = B/C Ratio) 14 1 6-25 [facility] [employer] [id number] 09:44:00 Test Item Value Reference Range Interpretation Comments Globulin (test code = Globulin) 3.8 2.7-4.2 [facility] [employer] [id number] 09:44:00 Test Item Value Reference Range Interpretation Comments A/G Ratio (test code = A/G Ratio) 0.7 1 0.7-1.6 [facility] [employer] [id number] 09:44:00 Test Item Value Reference Range Interpretation Comments eGFR (test code = eGFR) 120 [facility] QhadbcgWZBCBZQKOL6075-60-71 09:44:00 Test Item Value Reference Range Interpretation Comments Segs (test code = Segs) 87.2 45.0-75.0 [facility] LobazfeKETMYMSXMT7187-54-21 09:44:00 Test Item Value Reference Range Interpretation Comments Lymphocytes (test code = Lymphocytes) 4.9 20.0-40.0 [facility] HospitalQedkhfdJUPHDNJFOU9348-07-90 09:44:00 Test Item Value Reference Range Interpretation Comments Monocytes (test code = Monocytes) 7.7 2.0-12.0 [facility] HospitalCfwbuexMIUYKCLHRS3540-62-05 09:44:00 Test Item Value Reference Range Interpretation Comments Basophils (test code = 0.2 See_Comment [Aut omated message] The Basophils) system which ge nerated this result tra nsmitted reference range : <=1.0. The reference r jose guadalupe was not used to int erpret this result as normal/abnormal . [facility] HospitalBbxmbbeQFWVEJHBBJ1485-43-06 09:44:00 Test Item Value Reference Range Interpretation Comments Neutrophils # (test code = Neutrophils 16.2 1.5-8.1 #) [facility] HospitalMhpqaovINBGAPKYVU6460-78-34 09:44:00 Test Item Value Reference Range Interpretation Comments Lymphocytes # (test code = Lymphocytes 0.9 1.0-5.5 #) [facility] HospitalUuxxpyaTHIURBLDLW3588-02-49 09:44:00 Test Item Value Reference Range Interpretation Comments Monocytes # (test code 1.4 See_Comment [Aut omated message] The = Monocytes #) system which generated this result tra nsmitted reference range : <=0.8. The reference r jose guadalupe was not used to int erpret this result as normal/abnormal . [facility] HospitalAqjnlrrRMDVDGXNHW8068-03-45 09:44:00 Test Item Value Reference Range Interpretation Comments WBC (test code = WBC) 18.6 3.7-10.4 [facility] HospitalGbqnzmpNLATGFLVPN2746-83-60 09:44:00 Test Item Value Reference Range Interpretation Comments RBC (test code = RBC) 3.91 4.70-6.10 [facility] HospitalNjufrnbYDZNZMUOUI5217-85-65 09:44:00 Test Item Value Reference Range Interpretation Comments Hgb (test code = Hgb) 13.5 14.0-18.0 [place] 818210-10-02 09:44:00 Test Item Value Reference Range Interpretation Comments Hct (test code = Hct) 38.7 42.0-54.0 [place] 818210-10-02 09:44:00 Test Item Value Reference Range Interpretation Comments MCV (test code = MCV) 99.0 80.0-94.0 [place] [address]-10-02 09:44:00 Test Item Value Reference Range Interpretation Comments MCH (test code = MCH) 34.5 pg 27.0-31.0 [facility] HospitalQaeogjtOFYOHFKOLO9890-27-24 09:44:00 Test Item Value Reference Range Interpretation Comments MCHC (test code = MCHC) 34.9 32.0-36.0 [facility] HospitalLqcfrjvHPELGUGILB6460-86-51 09:44:00 Test Item Value Reference Range Interpretation Comments RDW (test code = RDW) 13.5 11.5-14.5 [facility] HospitalIravkjhLUDNRSPDOY1508-85-48 09:44:00 Test Item Value Reference Range Interpretation Comments Platelet (test code = Platelet) 155 133-450 [facility] HospitalHzjgdjtRHFFDIRQNW2301-77-35 09:44:00 Test Item Value Reference Range Interpretation Comments MPV (test code = MPV) 7.5 7.4-10.4 [facility]ww[facility]xbDWMXCH3875-21-51 09:44:00 Test Item Value Reference Range Interpretation Comments Trig (test code = Trig) 320 [facility]2020-10-02 09:44:00 Test Item Value Reference Range Interpretation Comments Glucose Lvl (test code = Glucose Lvl) 122 70-99 [facility]2020-10-02 09:44:00 Test Item Value Reference Range Interpretation Comments BUN (test code = BUN) 11 7-22 [facility]2020-10-02 09:44:00 Test Item Value Reference Range Interpretation Comments Creatinine Lvl (test code = Creatinine 0.80 0.50-1.40 Lvl) [facility]2020-10-02 09:44:00 Test Item Value Reference Range Interpretation Comments Sodium Lvl (test code = Sodium Lvl) 137 135-145 [facility]2020-10-02 09:44:00 Test Item Value Reference Range Interpretation Comments Potassium Lvl (test code = Potassium 3.4 3.5-5.1 Lvl) [facility]2020-10-02 09:44:00 Test Item Value Reference Range Interpretation Comments Chloride Lvl (test code = Chloride Lvl) 103 95-109 [facility]2020-10-02 09:44:00 Test Item Value Reference Range Interpretation Comments CO2 (test code = CO2) 24 24-32 [facility]2020-10-02 09:44:00 Test Item Value Reference Range Interpretation Comments Calcium Lvl (test code = Calcium Lvl) 8.0 8.5-10.5 [facility] [id number] 09:44:00 Test Item Value Reference Range Interpretation Comments Total Protein (test code = Total 6.5 6.4-8.4 Protein) [facility] [id number] 09:44:00 Test Item Value Reference Range Interpretation Comments Albumin Lvl (test code = Albumin Lvl) 2.7 3.5-5.0 [facility] [employer] [id number] 09:44:00 Test Item Value Reference Range Interpretation Comments ALT (test code = ALT) 76 See_Comment [Auto mated message] The system which ge nerated this result transmit mary carmen reference range : <=65. The reference range was not used to interpr et this result as casey l/abnormal. [facility] [employer] [id number] 09:44:00 Test Item Value Reference Range Interpretation Comments AST (test code = AST) 68 See_Comment [Auto mated message] The system which ge nerated this result transmit mary carmen reference range : <=37. The reference range was not used to interpr et this result as casey l/abnormal. [facility] [employer] [id number] 09:44:00 Test Item Value Reference Range Interpretation Comments Alk Phos (test code = Alk Phos) 68 39-136 [facility] [employer] [id number] 09:44:00 Test Item Value Reference Range Interpretation Comments Bili Total (test code = Bili Total) 1.2 0.2-1.3 [facility] [employer] [id number] 09:44:00 Test Item Value Reference Range Interpretation Comments AGAP (test code = AGAP) 13.4 10.0-20.0 [facility] [facility] [employer] [id number] 09:44:00 Test Item Value Reference Range Interpretation Comments B/C Ratio (test code = B/C Ratio) 14 1 6-25 [facility] [employer] [id number] 09:44:00 Test Item Value Reference Range Interpretation Comments Globulin (test code = Globulin) 3.8 2.7-4.2 [facility] [employer] [id number] 09:44:00 Test Item Value Reference Range Interpretation Comments A/G Ratio (test code = A/G Ratio) 0.7 1 0.7-1.6 [facility]2020-10-02 09:44:00 Test Item Value Reference Range Interpretation Comments eGFR (test code = eGFR) 120 [place] [id number] 09:44:00 Test Item Value Reference Range Interpretation Comments Segs (test code = Segs) 87.2 45.0-75.0 [place] [id number] 09:44:00 Test Item Value Reference Range Interpretation Comments Lymphocytes (test code = Lymphocytes) 4.9 20.0-40.0 [place] [address]-10-02 09:44:00 Test Item Value Reference Range Interpretation Comments Monocytes (test code = Monocytes) 7.7 2.0-12.0 [place] [address]-10-02 09:44:00 Test Item Value Reference Range Interpretation Comments Basophils (test code = 0.2 See_Comment [Aut omated message] The Basophils) system which ge nerated this result tra nsmitted reference range : <=1.0. The reference r jose guadalupe was not used to int erpret this result as normal/abnormal . [place] [id number] 09:44:00 Test Item Value Reference Range Interpretation Comments Neutrophils # (test code = Neutrophils 16.2 1.5-8.1 #) [place] [address]-10-02 09:44:00 Test Item Value Reference Range Interpretation Comments Lymphocytes # (test code = Lymphocytes 0.9 1.0-5.5 #) [place] [address]-10-02 09:44:00 Test Item Value Reference Range Interpretation Comments Monocytes # (test code 1.4 See_Comment [Aut omated message] The = Monocytes #) system which generated this result tra nsmitted reference range : <=0.8. The reference r jose guadalupe was not used to int erpret this result as normal/abnormal . [place] [address]-10-02 09:44:00 Test Item Value Reference Range Interpretation Comments WBC (test code = WBC) 18.6 3.7-10.4 [place] [address]-10-02 09:44:00 Test Item Value Reference Range Interpretation Comments RBC (test code = RBC) 3.91 4.70-6.10 [facility]303[facility] 09:44:00 Test Item Value Reference Range Interpretation Comments Hgb (test code = Hgb) 13.5 14.0-18.0 [facility] HospitalSpnkyptCBSVALGXOQ0387-86-00 09:44:00 Test Item Value Reference Range Interpretation Comments Hct (test code = Hct) 38.7 42.0-54.0 [facility] HospitalKchtcqtYHLNERAFLG3940-95-85 09:44:00 Test Item Value Reference Range Interpretation Comments MCV (test code = MCV) 99.0 80.0-94.0 [facility] HospitalWugfiplWZJOHDSKXM2297-04-48 09:44:00 Test Item Value Reference Range Interpretation Comments MCH (test code = MCH) 34.5 pg 27.0-31.0 [facility] HospitalVdsajlaUNJPBYXTKK5812-07-95 09:44:00 Test Item Value Reference Range Interpretation Comments MCHC (test code = MCHC) 34.9 32.0-36.0 [facility] HospitalEskbwqeEDTDBNZLGG4898-47-31 09:44:00 Test Item Value Reference Range Interpretation Comments RDW (test code = RDW) 13.5 11.5-14.5 [facility] HospitalRgrketoZBOPHFWVMF9691-77-97 09:44:00 Test Item Value Reference Range Interpretation Comments Platelet (test code = Platelet) 155 133-450 [facility] HospitalNceiqrzVOLVBKXAKS3531-81-24 09:44:00 Test Item Value Reference Range Interpretation Comments MPV (test code = MPV) 7.5 7.4-10.4 [facility]TqujsdbJWQWGA3441-72-94 09:44:00 Test Item Value Reference Range Interpretation Comments Trig (test code = Trig) 320 [facility]2020-10-02 02:13:00 Test Item Value Reference Range Interpretation Comments Lactic Acid Lvl (test code = Lactic 1.5 0.5-2.2 Acid Lvl) [facility]2020-10-02 02:13:00 Test Item Value Reference Range Interpretation Comments Lactic Acid Lvl (test code = Lactic 1.5 0.5-2.2 Acid Lvl) [facility]2020-10-02 02:13:00 Test Item Value Reference Range Interpretation Comments Lactic Acid Lvl (test code = Lactic 1.5 0.5-2.2 Acid Lvl) [facility] CenterGfgblauHHESJKVEWM6632-69-10 10:58:00 Test Item Value Reference Range Interpretation Comments Coronavirus (COVID-19) Not Detected (08/23/20 DANIS (test code = 5:58 AM) Coronavirus (COVID-19) DANIS) [facility] CenterTxcakhxAASZXGFQCQ9792-71-88 10:58:00 Test Item Value Reference Range Interpretation Comments Coronavirus (COVID-19) Not Detected (08/23/20 DANIS (test code = 5:58 AM) Coronavirus (COVID-19) DANIS) [facility] CenterHhxtdmmYFKCSSEGPJ9905-42-89 10:58:00 Test Item Value Reference Range Interpretation Comments Coronavirus (COVID-19) Not Detected (08/23/20 DANIS (test code = 5:58 AM) Coronavirus (COVID-19) DANIS) [facility] [id number] 04:50:00 Test Item Value Reference Range Interpretation Comments Lipase Lvl (test code = Lipase Lvl) 1711 94-754 [facility] CenterLmnpodyGIWOIEJEJD5615-94-49 04:50:00 Test Item Value Reference Range Interpretation Comments RBC Morph (test code = Normal (08/22/20 11:50 RBC Morph) PM) [facility] CenterNbawjogSEXKPKOCLF2737-46-78 04:50:00 Test Item Value Reference Range Interpretation Comments Plt Morph (test code = Normal (08/22/20 11:50 Plt Morph) PM) [facility] CenterBsgirzwNFRPLK7250-42-21 04:50:00 Test Item Value Reference Range Interpretation Comments Chol (test code = Chol) 174 [facility] CenterBqkupejPERICQ6401-57-89 04:50:00 Test Item Value Reference Range Interpretation Comments Trig (test code = Trig) 711 [facility] CenterOmuqreqYBXELB1065-92-29 04:50:00 Test Item Value Reference Range Interpretation Comments HDL (test code = HDL) 28 [facility] CenterFlxabjxTJCTMZ8714-17-27 04:50:00 Test Item Value Reference Range Interpretation Comments CHD Risk (test code = CHD Risk) 6.21 1 4.00-7.30 [facility] CenterStvkvijXHEJXD2499-91-23 04:50:00 Test Item Value Reference Range Interpretation Comments LDL (Calculated) (test code = See Note mg/dL LDL (Calculated)) [facility] CenterOphfsybIXIJXF6687-73-99 04:50:00 Test Item Value Reference Range Interpretation Comments VLDL (test code = See Note 5*NA*(08/22/20 VLDL) 11:50 PM) [facility] CenterMetafor Software [id number] 04:50:00 Test Item Value Reference Range Interpretation Comments Lipase Lvl (test code = Lipase Lvl) 9216 66-082 [facility] HospitalKtoebdlRANXUADDEB7560-88-96 04:50:00 Test Item Value Reference Range Interpretation Comments RBC Morph (test code = Normal (08/22/20 11:50 RBC Morph) PM) [facility] CenterXvsliagCIZDXOBULN6036-96-29 04:50:00 Test Item Value Reference Range Interpretation Comments Plt Morph (test code = Normal (08/22/20 11:50 Plt Morph) PM) [facility] CenterBsuszilIMORPJ9797-90-67 04:50:00 Test Item Value Reference Range Interpretation Comments Chol (test code = Chol) 174 [facility]YmhevtmCKNMEF7347-93-14 04:50:00 Test Item Value Reference Range Interpretation Comments Trig (test code = Trig) 711 [facility] CenterQdbgbctGYMOZG5503-47-25 04:50:00 Test Item Value Reference Range Interpretation Comments HDL (test code = HDL) 28 [facility] CenterJkauismDLOMAE5097-38-68 04:50:00 Test Item Value Reference Range Interpretation Comments CHD Risk (test code = CHD Risk) 6.21 1 4.00-7.30 [facility] CenterOpzupllPCHPBC3441-66-85 04:50:00 Test Item Value Reference Range Interpretation Comments LDL (Calculated) (test code = See Note mg/dL LDL (Calculated)) [facility] CenterDuwhzusMDSKCH0737-16-10 04:50:00 Test Item Value Reference Range Interpretation Comments VLDL (test code = See Note 5*NA*(08/22/20 VLDL) 11:50 PM) [facility] [id number] 04:50:00 Test Item Value Reference Range Interpretation Comments Lipase Lvl (test code = Lipase Lvl) 1654 16-498 [facility] HospitalYlqojytVUZSZPLKVC0123-96-55 04:50:00 Test Item Value Reference Range Interpretation Comments RBC Morph (test code = Normal (08/22/20 11:50 RBC Morph) PM) [facility]DvelmfsGPIRUCPZBZ7945-16-14 04:50:00 Test Item Value Reference Range Interpretation Comments Plt Morph (test code = Normal (08/22/20 11:50 Plt Morph) PM) [facility] CenterMsewtziBNPAXI3854-16-44 04:50:00 Test Item Value Reference Range Interpretation Comments Chol (test code = Chol) 174 [facility] CenterZmnnbyaYLMMGZ9182-67-47 04:50:00 Test Item Value Reference Range Interpretation Comments Trig (test code = Trig) 711 [facility] CenterOwmiwepORFUKA6543-72-14 04:50:00 Test Item Value Reference Range Interpretation Comments HDL (test code = HDL) 28 [facility] CenterRzaohyiUNOJHK1683-96-89 04:50:00 Test Item Value Reference Range Interpretation Comments CHD Risk (test code = CHD Risk) 6.21 1 4.00-7.30 [facility] CenterBejbwrdOZQFEG8018-15-44 04:50:00 Test Item Value Reference Range Interpretation Comments LDL (Calculated) (test code = See Note mg/dL LDL (Calculated)) [facility]FvdbypoJRBWLA4782-03-10 04:50:00 Test Item Value Reference Range Interpretation Comments VLDL (test code = See Note 5*NA*(08/22/20 VLDL) 11:50 PM) [facility] Notes Date/Time Note Provider Source 2020-08-23 05:25:00-00:00 PROCEDURE INFORMATION: [facility] Exam: US Abdomen, Limited; Right Upper Quadrant Exam date and time: 08/23/2020 5:27 AM Age: 30 years old Clinical indication: Abnormal findings; Additio nal info: /elevated liver enzymes TECHNIQUE: Imaging protocol: US abdomen. Real time ultraso und with image documentation. Limited exam focused on the right upper quadrant . COMPARISON: No relevant prior studies available. LIVER: Increased echogenicity throughout the li kirby consistent with fatty change. This limits the detection of liver masses by sonography. No gross liver abnormality identified. Hepatomegaly with the liver measurin g 20.3 cm in length. Common bile duct: The intrahepatic and extrahepatic bile ducts are not dilated with the common bile duct measuring 4.4 mm. The distal common bi le duct is not well seen. GALLBLADDER: There [...] gas. Roly Garcia MD On 08/23/2020 07:54:40; VR -[id number]
[2023-07-15] MEDS ORDERED: ONDANSETRON 4 MG/2 ML VIAL ONE (09:34)
[2023-07-15] MEDS ORDERED: NA CHLORIDE 0.9% 1,000 ML ONE ×3 (09:34→12:46)
[2023-07-15] MEDS ORDERED: MORPHINE 4 MG/ML SYR ONE (09:45)
[2023-07-15 09:52] LABS: Absolute Lymphocytes (CBC) 1.7 K/uL (0.7-4.9); Hematocrit 51.9 % (39.6-49.0); Lymphocytes % 10.2 % (15.3-44.8); MCV 89.9 fL (80-100); MPV 6.7 fL (7.6-11.3); Platelets 432 thou/uL (152-406); RBC Red Blood Cell Count 5.78 M/uL (4.33-5.43)
[2023-07-15] MEDS ORDERED: PROMETHAZINE INJ 25 MG/ML AMP ONE ×2 (10:03→12:29)
[2023-07-15] MEDS ORDERED: FENTANYL CITR 100 MCG/2 ML ONE (10:04)
[2023-07-15 10:09] LABS: Albumin 4.5 g/dL (3.4-5.0); Potassium 3.9 mEq/L (3.5-5.1); Protein, Total 8.6 g/dL (6.4-8.2)
--- NOTE | 2023-07-15 10:26 | RAD REPORT ---
EXAM DESCRIPTION: CT - Abdomen Pelvis W Contrast - 07/15/2023 10:09 am CLINICAL HISTORY: Abdominal pain COMPARISON: March 2023 TECHNIQUE: Computed axial tomography of the abdomen pelvis was obtained. 100 cc Isovue-300 was admin istered intravenously. Oral contrast was not requested which limits evaluation of bowel and appendix All CT scans are performed using dose optimization technique as appropriate and may include automated exposure control or mA/KV adjustment according to patient size. FINDINGS: The pancreas is inhomogeneous and mildly enlarged. Small amount of ill-defined fluid surro unds the pancreas. There is stranding within the adjacent fat. Small amount of fluid extends into the medial subdiaphragmatic region adjacent to the spleen and stomach. A pseudocyst is not seen. There is no evidence of diverticulitis. Normal appendix IMPRESSION: Moderate pancreatitis
--- NOTE | 2023-07-15 10:47 | EDPHYS ---
Physician Documentation [facility] Name: Mc Barrios Age: 33 yrs Sex: Male : 1990 Arrival Date: 07/15/2023 Time: 09:10 Bed 19 Private MD: ED Physician Edwin Cristina HPI: 07/15 11:23 This 33 yrs old Male presents to ER via Wheelchair with complaints of Abdominal Pain, rt Vomiting. 11:23 Patient presents to the ED with nausea, vomiting, abdominal pain starting last night. rt The patient did start drinking a large amount of alcohol about 5 days ago. Has been daily drinking since then. Denies other acute complaints. Symptoms are moderate in severity, no other aggravating elevating factors.. Historical: - Allergies: 09:20 Sulfa (Sulfonamide Antibiotics); iw - PMHx: 09:20 Alcoholism; Hypertension; Pancreatitis; iw - PSHx: 09:20 hernia repair; iw - Immunization history:: Adult Immunizations. - Social history:: Smoking status: Reported history of juuling and/or vaping. - Family history:: not pertinent. ROS: 11:23 Constitutional: Negative for fever, chills, and weight loss, Cardiovascular: Negative rt for chest pain, palpitations, and edema, Respiratory: Negative for shortness of breath, cough, wheezing, and pleuritic chest pain, MS/Extremity: Negative for injury and deformity, Skin: Negative for injury, rash, and discoloration, Neuro: Negative for headache, weakness, numbness, tingling, and seizure, Psych: Negative for depression, anxiety, suicide ideation, homicidal ideation, and hallucinations. 11:23 Abdomen/GI: Positive for abdominal pain, nausea and vomiting. Exam: 11:23 Constitutional: This is a well developed, well nourished patient who is awake, alert, rt and in no acute distress. Head/Face: Normocephalic, atraumatic. Chest/axilla: Normal chest wall appearance and motion. Nontender with no deformity. No lesions are appreciated. Cardiovascular: Regular rate and rhythm with a normal S1 and S2. No gallops, murmurs, or rubs. Normal PMI, no JVD. No pulse deficits. Respiratory: Lungs have equal breath sounds bilaterally, clear to auscultation and percussion. No rales, rhonchi or wheezes noted. No increased work of breathing, no retractions or nasal flaring. Skin: Warm, dry with normal turgor. Normal color with no rashes, no lesions, and no evidence of cellulitis. MS/ Extremity: Pulses equal, no cyanosis. Neurovascular intact. Full, normal range of motion. Neuro: Awake and alert, GCS 15, oriented to person, place, time, and situation. Cranial nerves II-XII grossly intact. Motor strength 5/5 in all extremities. Sensory grossly intact. Cerebellar exam normal. Normal gait. Psych: Awake, alert, with orientation to person, place and time. Behavior, mood, and affect are within normal limits. 11:23 Abdomen/GI: Tenderness to the epigastrium without rebound, guarding, distention. Vital Signs: 09:18 BP 109 / 92; Pulse 87; Resp 19; Temp 98.2; Pulse Ox 98% on R/A; Weight 122.47 kg; iw Height 6 ft. 3 in. ; Pain 8/10; 11:05 BP 153 / 103; Pulse 81; Resp 18; Pulse Ox 95% ; Pain 10/10; nj1 12:05 BP 169 / 107; Pulse 86; Resp 18; Pulse Ox 97% ; Pain 9/10; nj1 13:23 BP 157 / 106; Pulse 87; Resp 18; Pulse Ox 98% ; Pain 7/10; ph 09:18 Body Mass Index 33.75 (122.47 kg, 190.5 cm) iw 09:18 Pain Scale: Adult iw 11:05 Pain Scale: Adult nj1 12:05 Pain Scale: Adult nj1 13:23 Pain Scale: Adult ph MDM: 09:21 Patient medically screened. rt 11:23 Differential diagnosis: Nonspecific abd pain, gastritis, cholecystitis, pancreatitis, rt appendicitis. Data reviewed: vital signs. Consideration of Admission/Observation Patient was admitted/placed on observation. Management of patient was discussed with the following: Hospitalist: Agrees to admit. I considered the following discharge prescriptions or medication management in the emergency department Medications were administered in the Emergency Department. See MAR. Independent interpretation of the following test(s) in the Emergency Department CT Scan: My interpretation is No bowel obstruction some interpretation of the CT scan images. Care significantly affected by the following chronic conditions: Hypertension. Counseling: I had a detailed discussion with the patient and/or guardian regarding the historical points, exam findings, and any diagnostic results supporting the discharge/admit diagnosis, lab results, radiology results, the need for further work-up and treatment in the hospital. Response to treatment: the patient's symptoms have mildly improved after treatment. 07/15 09:29 Order name: CBC with Diff; Complete Time: 09:57 rt 07/15 09:29 Order name: CMP; Complete Time: 10:28 rt 07/15 09:29 Order name: Lipase; Complete Time: 10:28 rt 07/15 09:29 Order name: Urinalysis w/ reflexes rt 07/15 12:18 Order name: Lipase EDMS 07/15 12:18 Order name: Lipase EDMS 07/15 12:18 Order name: Lipid Profile EDMS 07/15 12:18 Order name: Lipid Profile EDMS 07/15 12:24 Order name: Hemoglobin A1c EDMS 07/15 12:24 Order name: Blood Culture EDMS 07/15 12:24 Order name: Magnesium EDMS 07/15 12:24 Order name: NT PRO-BNP EDMS 07/15 12:25 Order name: Phosphorus EDMS 07/15 12:25 Order name: T4 Free EDMS 07/15 12:25 Order name: Thyroid Stimulating Hormone EDMS 07/15 12:25 Order name: Urinalysis w/ reflexes EDMS 07/15 12:25 Order name: Basic Metabolic Panel EDMS 07/15 12:25 Order name: Basic Metabolic Panel EDMS 07/15 12:25 Order name: CBC with Automated Diff EDMS 07/15 12:25 Order name: CBC with Automated Diff EDMS 07/15 09:29 Order name: CT Abd/Pelvis - IV Contrast Only; Complete Time: 10:28 rt 07/15 12:14 Order name: NPO EDMS 07/15 09:29 Order name: IV Saline Lock; Complete Time: 09:46 rt 07/15 09:29 Order name: Labs collected and sent; Complete Time: 09:46 rt Administered Medications: 09:30 Drug: NS 0.9% IV 2000 ml Route: IV; Rate: 1 bolus; Site: right antecubital; nj1 09:30 Drug: Ondansetron IVP 8 mg Route: IVP; Site: right antecubital; nj1 09:55 Follow up: Response: No adverse reaction; Nausea unchanged nj1 09:36 Drug: morphine IVP or IV 4 mg Route: IVP; Infused Over: 4 mins; Site: right antecubital;nj1 09:55 Follow up: Response: No adverse reaction; Pain is unchanged, physician notified nj1 09:55 Drug: fentaNYL (PF) IVP 100 mcg Route: IVP; Site: right antecubital; nj1 11:00 Follow up: Response: No adverse reaction nj1 09:56 Drug: Promethazine IVP 12.5 mg Route: IVP; Site: right antecubital; nj1 11:00 Follow up: Response: No adverse reaction; Nausea is decreased nj1 10:58 Drug: HYDROmorphone IVP 1 mg Route: IVP; Site: right antecubital; nj1 Disposition Summary: 07/15/23 10:46 Hospitalization Ordered Hospitalization Status: Inpatient Admission rt Provider: Arnold Rivas rt Location: Telemetry/MedSurg (Inpatient) rt Condition: Stable rt Problem: an acute exacerbation rt Symptoms: have improved rt Bed/Room Type: Standard rt Room Assignment: [facility](07/15/23 12:39) Diagnosis - Alcoholic pancreatitis rt Forms: - Medication Reconciliation Form rt - SBAR form rt - Leadership Thank You Letter rt Signatures: Dispatcher [employer] Arti Paulson RN RN dw Williams, Irene, RN RN iw Edwin Cristina MD MD rt Rama Domínguez RN RN nj1 Corrections: (The following items were deleted from the chart) 12:28 12:24 Liver (Hepatic) Function ordered. DAVID HERNANDEZ 12:39 10:46 rt dw
--- NOTE | 2023-07-15 10:47 | ER ---
Nurse's Notes [facility] Name: Mc Barrios Age: 33 yrs Sex: Male : 1990 Arrival Date: 07/15/2023 Time: 09:10 Bed 19 Private MD: Diagnosis: Alcoholic pancreatitis Presentation: 07/15 09:18 Chief complaint: Patient states: vomiting, abd pain X 2-3 days, hx of pancreatitis, he iw started drinking again and thinks it flared it up. Coronavirus screen: At this time, the client does not indicate any symptoms associated with coronavirus-19. Ebola Screen: Patient negative for fever greater than or equal to 101.5 degrees Fahrenheit, and additional compatible Ebola Virus Disease symptoms Patient denies exposure to infectious person. Patient denies travel to an Ebola-affected area in the 21 days before illness onset. No symptoms or risks identified at this time. Initial Sepsis Screen: Does the patient meet any 2 criteria? No. Patient's initial sepsis screen is negative. Does the patient have a suspected source of infection? No. Patient's initial sepsis screen is negative. Risk Assessment: Do you want to hurt yourself or someone else? Patient reports no desire to harm self or others. Onset of symptoms was July 12, 2023. 09:18 Method Of Arrival: Wheelchair iw 09:18 Acuity: ROSCOE 3 iw Historical: - Allergies: 09:20 Sulfa (Sulfonamide Antibiotics); iw - PMHx: 09:20 Alcoholism; Hypertension; Pancreatitis; iw - PSHx: 09:20 hernia repair; iw - Immunization history:: Adult Immunizations. - Social history:: Smoking status: Reported history of juuling and/or vaping. - Family history:: not pertinent. Screenin:44 [facility] ED Fall Risk Assessment (Adult) Score/Fall Risk Level 0 - 2 = Low Risk nj1 Oriented to surroundings, Maintained a safe environment, Hourly rounding (assess needs \T\ fall precautionary measures) done. Abuse screen: Denies threats or abuse. Denies injuries from another. Nutritional screening: No deficits noted. Tuberculosis screening: No symptoms or risk factors identified. Assessment: 09:30 General: Appears uncomfortable, Behavior is cooperative, restless. Pain: Complains of nj1 pain in abdomen Pain currently is 10 out of 10 on a pain scale. 09:30 Neuro: Level of Consciousness is awake, alert, obeys commands, Oriented to person, nj1 place, time, situation. Cardiovascular: Patient's skin is warm and dry. Respiratory: Airway is patent Respiratory effort is even, unlabored. GI: Pt is actively vomiting Reports upper abdominal pain, vomiting. 11:00 Reassessment: Patient appears in no apparent distress at this time. Patient and/or nj1 family updated on plan of care and expected duration. Pain level reassessed. Patient is alert, oriented x 3, equal unlabored respirations, skin warm/dry/pink. 12:05 Reassessment: Patient appears in no apparent distress at this time. Patient and/or nj1 family updated on plan of care and expected duration. Pain level reassessed. Patient is alert, oriented x 3, equal unlabored respirations, skin warm/dry/pink. 12:48 Reassessment: Unsuccessful attempt to call report at this time. Nurse Carlin states room nj1 is not cleaned, she will call back for report. Charge nurse notfiied. Vital Signs: 09:18 BP 109 / 92; Pulse 87; Resp 19; Temp 98.2; Pulse Ox 98% on R/A; Weight 122.47 kg; iw Height 6 ft. 3 in. ; Pain 8/10; 11:05 BP 153 / 103; Pulse 81; Resp 18; Pulse Ox 95% ; Pain 10/10; nj1 12:05 BP 169 / 107; Pulse 86; Resp 18; Pulse Ox 97% ; Pain 9/10; nj1 13:23 BP 157 / 106; Pulse 87; Resp 18; Pulse Ox 98% ; Pain 7/10; ph 09:18 Body Mass Index 33.75 (122.47 kg, 190.5 cm) iw 09:18 Pain Scale: Adult iw 11:05 Pain Scale: Adult nj1 12:05 Pain Scale: Adult nj1 13:23 Pain Scale: Adult ph ED Course: 09:12 Patient arrived in ED. mg5 09:14 Edwin Cristina MD is Attending Physician. rt 09:20 Triage completed. iw 09:20 Arm band placed on. iw 09:30 Patient has correct armband on for positive identification. Bed in low position. Call nj1 light in reach. Adult w/ patient. Provided Education on: fall precautions, call light. 09:44 Sang, Rama, RN is Primary Nurse. nj1 09:48 Notified ED physician of other Patient requesting pain med, states morphine didn't work nj1 for him last time he had this same problem. 10:10 CT Abd/Pelvis - IV Contrast Only In Process Unspecified. EDMS 10:45 Arnold Rivas MD is Hospitalizing Provider. rt 12:05 Notified the Hospitalist of patient requesting pain and nausea medication. nj1 Administered Medications: 09:30 Drug: NS 0.9% IV 2000 ml Route: IV; Rate: 1 bolus; Site: right antecubital; nj1 09:30 Drug: Ondansetron IVP 8 mg Route: IVP; Site: right antecubital; nj1 09:55 Follow up: Response: No adverse reaction; Nausea unchanged nj1 09:36 Drug: morphine IVP or IV 4 mg Route: IVP; Infused Over: 4 mins; Site: right antecubital;nj1 09:55 Follow up: Response: No adverse reaction; Pain is unchanged, physician notified nj1 09:55 Drug: fentaNYL (PF) IVP 100 mcg Route: IVP; Site: right antecubital; nj1 11:00 Follow up: Response: No adverse reaction nj1 09:56 Drug: Promethazine IVP 12.5 mg Route: IVP; Site: right antecubital; nj1 11:00 Follow up: Response: No adverse reaction; Nausea is decreased nj1 10:58 Drug: HYDROmorphone IVP 1 mg Route: IVP; Site: right antecubital; nj1 Medication: 09:51 VIS not applicable for this client. nj1 Outcome: 10:46 Decision to Hospitalize by Provider. rt 13:18 Admitted to Med/surg accompanied by tech, via wheelchair, room 212, Report called to nj Nurse Raegan 13:18 Condition: stable 13:18 Instructed on the need for admit. 13:34 Patient left the ED. ph Signatures: Dispatcher [employer] EDBreanna Marcum RN RN iw Hall, Patricia, RN RN ph [place], Ryan, MD MD rt Rama Domínguez RN RN bony Zoraida Cole mg5 Corrections: (The following items were deleted from the chart) 09:20 09:18 Pulse 87bpm; Resp 19bpm; Pulse Ox 98% RA; Temp 98.2F; 122.47 kg; Height 6 ft. 3 iw in.; BMI: 33.7; Pain 8/10, Adult; iw 12:10 12:05 Pulse 86bpm; Resp 18bpm; Pulse Ox 97%; Pain 9/10, Adult; nj1 nj1
[2023-07-15] MEDS ORDERED: HYDROMORPHONE HCL 1 MG/ML INJ ONE ×2 (11:05→12:29)
[2023-07-15] MEDS ORDERED: ACETAMINOPHEN 650MG/RECT SUPP PR PRN (12:14)
[2023-07-15] MEDS: HYDROMORPHONE HCL 1 MG/ML INJ IV PRN ×4 (12:20→22:55)
[2023-07-15] MEDS: PROMETHAZINE INJ 25 MG/ML AMP IV PRN (12:20)
--- NOTE | 2023-07-15 12:29 | P.HP ---
Certification for Inpatient Patient admitted to: Inpatient With expected LOS: >2 Midnights Patient will require the following post-hospital care: None Practitioner: I am a practitioner with admitting privileges, knowledge of patient current condition, hospital course, and medical plan of care. Services: Services provided to patient in accordance with Admission requirements found in Title 42 Section 412.3 of the Code of Federal Regulations Patient History Date of Service: 07/15/23 Reason for admission: Abdominal pain History of Present Illness: Patient is a 33-year-old male with a past medical history significant for alcohol abuse, hypertension, pancreatitis, vaping disorder, cannabis use disorder who presents with complaint of generalized abdominal pain that has been ongoing for the past 3 days. Patient rated pain as 9/10 in severity and described pain as sharp in quality. Patient also reported that he has not had a bowel movement in 3 days. Patient reports associated signs and symptoms of nausea, diaphoresis and poor appetite. Patient denies any other signs and symptoms. Symptoms are aggravated or relieved by nothing. Patient decided to present to the hospital for medical evaluation. Of note, patient reported that his last drink was yesterday. Allergies Sulfa (Sulfonamide Antibiotics) Allergy (Verified 12/17/20 13:21) UNK Home Medications: Fluoxetine HCl [Prozac] 40 mg PO DAILY 04/19/23 Metoprolol Tartrate [Lopressor*] 50 mg PO BID 6AM 6PM #60 tab 04/22/23 - Past Medical/Surgical History Diabetic: No -: HTN -: pancreatitis -: ETOH withdrawal -: Hernia repair - Social History Smoking Status: Never smoker Alcohol use: Yes CD- Drugs: Yes Caffeine use: No Place of Residence: Home Review of Systems General: Sweats, Other (Poor appetite) Eyes: Unremarkable ENT: Unremarkable Respiratory: Unremarkable Cardiovascular: Unremarkable Gastrointestinal: Nausea, Abdominal Pain Genitourinary: Unremarkable Musculoskeletal: Unremarkable Integumentary: Unremarkable Neurological: Unremarkable Lymphatics: Unremarkable Physical Examination - Physical Exam General: Alert, In no apparent distress, Oriented x3, Cooperative HEENT: Atraumatic, PERRLA, Mucous membr. moist/pink, EOMI, Sclerae nonicteric Neck: Supple, 2+ carotid pulse no bruit, No LAD, Without JVD or thyroid abnormality Respiratory: Clear to auscultation bilaterally, Normal air movement Cardiovascular: No edema, Regular rate/rhythm, Normal S1 S2 Capillary refill: <2 Seconds Gastrointestinal: Normal bowel sounds, Tenderness Musculoskeletal: No clubbing, No swelling, No tenderness Integumentary: No rashes, No significant lesion Neurological: Normal speech, Normal strength at 5/5 x4 extr, Normal tone, Normal affect Lymphatics: No axilla or inguinal lymphadenopathy - Studies Laboratory Data (last 24 hrs) 07/15/23 07/15/23 07/15/23 12:22 09:30 09:30 WBC 16.80 H Hgb 17.9 Hct 51.9 H Plt Count 432 H Sodium 133 L Potassium 3.9 BUN 13 Creatinine 1.18 Glucose 323 H Total Bilirubin Cancelled 1.0 AST Cancelled 57 H ALT Cancelled 169 H Alkaline Phosphatase Cancelled 96 Lipase 549 H Assessment and Plan - Plan --Acute on chronic pancreatitis. Secondary to alcoholic abuse. We will keep patient NPO. Lipase-549. CT imaging indicates moderate pancreatitis. We will reassess lipase in a.m. Continue IV hydration. --Acute pain. We will manage pain with current pain medication regimen. --Alcohol abuse. Alcohol withdrawal protocol in place. Patient placed on banana bag. Continue supportive care. --Hypertension. Poorly controlled. We will manage BP with labetalol as needed. 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 Patient counseled on drug cessation. Continue supportive care. --CKD 2. Stable. We will continue to monitor renal functions. --DVT prophylaxis with Lovenox subQ. Discharge Plan: Home Plan to discharge in: Greater than 2 days - Advance Directives Does patient have a Living Will: No Does patient have a Durable POA for Healthcare: No - Code Status/Comfort Care Code Status Assessed: Yes Physician Review: Patient Assessed, Agree with Above Assessment and Plan Critical Care: No
[2023-07-15] MEDS ORDERED: LORazepam 2 MG/ML VIAL IV PRN (12:57)
[2023-07-15 13:54] VITALS: BMI 32.5
[2023-07-15] MEDS: NA CHLORIDE 0.9% 1,000 ML IV SCH (14:16)
[2023-07-15] MEDS: ENOXAPARIN 40 MG/0.4 ML SQ SCH (14:17)
[2023-07-15] MEDS: LORazepam 2 MG/ML VIAL IV SCH ×3 (14:21→21:21)
[2023-07-15] MEDS: INSULIN -REGULAR HUMAN 50 UNIT/0.5 ML ML SQ SCH ×2 (16:20→21:00)
[2023-07-15 17:03] LABS: Magnesium 1.3 mg/dL (1.6-2.4); Phosphorus 5.8 mg/dL (2.5-4.9); Thyroid Stimulating Hormone 0.907 uIU/mL (0.358-3.740)
[2023-07-15] MEDS ORDERED: LABETALOL 20 MG/4ML SYRINGE IV PRN (17:35)
[2023-07-15] MEDS: ONDANSETRON 4 MG/2 ML VIAL IV PRN (19:32)
[2023-07-15] MEDS: HYDRALAZINE HCL 20 MG/ML VIAL IV PRN (23:17)
[2023-07-15] MEDS ORDERED: Magnesium Sulfate 2gm IVPB 2 G/50 ML BAG IV ONE (23:35)
[2023-07-16] MEDS: LORazepam 2 MG/ML VIAL IV SCH ×4 (00:58→13:54)
[2023-07-16] MEDS: PROMETHAZINE INJ 25 MG/ML AMP IV PRN (01:04)
[2023-07-16] MEDS: INSULIN -REGULAR HUMAN 50 UNIT/0.5 ML ML SQ SCH ×5 (01:09→23:37)
[2023-07-16] MEDS: NA CHLORIDE 0.9% 1,000 ML IV SCH ×3 (01:11→19:36)
[2023-07-16] MEDS: HYDROMORPHONE HCL 1 MG/ML INJ IV PRN ×6 (02:13→23:34)
[2023-07-16 03:40] LABS: Absolute Lymphocytes (CBC) 1.3 K/uL (0.7-4.9); Hematocrit 47.5 % (39.6-49.0); Lymphocytes % 3.7 % (15.3-44.8); MCV 90.8 fL (80-100); MPV 6.9 fL (7.6-11.3); Platelets 315 thou/uL (152-406); RBC Red Blood Cell Count 5.23 M/uL (4.33-5.43)
[2023-07-16 03:52] LABS: Potassium 3.5 mEq/L (3.5-5.1)
[2023-07-16] MEDS ORDERED: KCL 20 MEQ/100 mL IVPB 20 MEQ/100 ML BAG IV SCH (05:00)
[2023-07-16 05:21] LABS: Blood Morphology Comment NOT SEEN (NOT SEEN); Platelet Estimate ADEQ
[2023-07-16 06:14] LABS: Specific Gravity > 1.030 (1.005-1.030); Urine Bacteria None Seen /HPF (<20); Urine Bilirubin NEGATIVE (Negative); Urine Blood Negative (Negative); Urine Clarity Clear (Clear); Urine Color Yellow (Yellow); Urine Glucose TRACE (Negative); Urine Mucus Slight /HPF (None Seen); Urine Protein 1+ (Negative); Urine RBC <5 /HPF (None Seen); Urine Urobilinogen Normal (Normal)
[2023-07-16] MEDS ORDERED: METOPROLOL TARTRATE 5 MG/5 ML INJ IV STA (06:26)
[2023-07-16] MEDS ORDERED: THIAMINE 200 MG/2 ML INJ ONE (07:36)
[2023-07-16] MEDS ORDERED: NA CHLORIDE 0.9% 1,000 ML ONE (07:36)
[2023-07-16] MEDS: ENOXAPARIN 40 MG/0.4 ML SQ SCH (08:56)
[2023-07-16] MEDS: FOLIC ACID 1 MG, MULTIVITAMINS INJ 10 ML, THIAMINE HCL 100 MG in NA CHLORIDE 0.9% 1,000 ML IV SCH (08:56)
[2023-07-16] MEDS: ONDANSETRON 4 MG/2 ML VIAL IV PRN ×2 (08:56→21:35)
--- NOTE | 2023-07-16 10:42 | P.PN ---
Date of Service: 07/16/23 Subjective Pt is doing a little better; pt denies any new c/o; Physical Examination - Vitals reviewed - Physical Exam General: Alert, In no apparent distress, Oriented x3, Cooperative Respiratory: Clear to auscultation bilaterally, Normal air movement Cardiovascular: No edema, Regular rate/rhythm, Normal S1 S2 Gastrointestinal: Normal bowel sounds, Tenderness Musculoskeletal: No clubbing, No swelling, No tenderness Neurological: No focal deficits Assessment and Plan - Assessment --Acute on chronic pancreatitis. --Acute pain. --Alcohol abuse. --Hypertension. --Vaping disorder. --Cannabis use disorder. --CKD 2. - Plan -Secondary to alcoholic abuse. We will keep patient NPO. Lipase-improving. CT imaging indicates moderate pancreatitis. We will reassess lipase in a.m. -Continue IV hydration. -We will manage pain with current pain medication regimen. -Alcohol withdrawal protocol in place. Patient placed on banana bag. Continue supportive care. Librium started -Poorly controlled. We will manage BP with labetalol as needed. -Patient counseled on cessation -Patient counseled on drug cessation. Continue supportive care. -Stable. We will continue to monitor renal functions.
[2023-07-16] MEDS ORDERED: METOPROLOL TAR 50 MG TAB PO ONE (11:00)
[2023-07-16] MEDS ORDERED: HYDRALAZINE HCL 20 MG/ML VIAL IV ONE (12:45)
[2023-07-16] MEDS: chlordiazePOXIDE HCl 25 MG CAP PO SCH (17:19)
[2023-07-16] MEDS: METOPROLOL TAR 25 MG TAB PO SCH (17:21)
[2023-07-17] MEDS: chlordiazePOXIDE HCl 25 MG CAP PO SCH ×3 (01:20→17:11)
[2023-07-17] MEDS: HYDROMORPHONE HCL 1 MG/ML INJ IV PRN ×5 (03:25→21:41)
[2023-07-17] MEDS: METOPROLOL TAR 25 MG TAB PO SCH ×2 (05:30→17:10)
[2023-07-17] MEDS: NA CHLORIDE 0.9% 1,000 ML IV SCH ×2 (05:32→15:00)
[2023-07-17] MEDS: ONDANSETRON 4 MG/2 ML VIAL IV PRN (05:35)
[2023-07-17] MEDS: INSULIN -REGULAR HUMAN 50 UNIT/0.5 ML ML SQ SCH ×4 (06:40→23:52)
[2023-07-17 07:17] LABS: Potassium 3.8 mEq/L (3.5-5.1)
[2023-07-17] MEDS: FOLIC ACID 1 MG, MULTIVITAMINS INJ 10 ML, THIAMINE HCL 100 MG in NA CHLORIDE 0.9% 1,000 ML IV SCH (09:22)
[2023-07-17] MEDS: ENOXAPARIN 40 MG/0.4 ML SQ SCH (09:23)
[2023-07-17] MEDS: HYDROCODONE/APAP 10/325 TAB PO PRN ×3 (11:20→20:45)
[2023-07-17] MEDS: HYDRALAZINE HCL 20 MG/ML VIAL IV PRN (12:14)
[2023-07-17] MEDS ORDERED: LORazepam 2 MG/ML VIAL IV SCH (13:00)
[2023-07-17 22:49] VITALS: O2SAT 98
[2023-07-18] MEDS: NA CHLORIDE 0.9% 1,000 ML IV SCH ×2 (00:17→11:00)
[2023-07-18] MEDS: HYDROCODONE/APAP 10/325 TAB PO PRN ×3 (00:17→08:11)
[2023-07-18] MEDS: chlordiazePOXIDE HCl 25 MG CAP PO SCH ×2 (00:18→08:42)
[2023-07-18] MEDS: HYDROMORPHONE HCL 1 MG/ML INJ IV PRN ×4 (01:16→13:24)
[2023-07-18] MEDS: METOPROLOL TAR 25 MG TAB PO SCH (05:02)
[2023-07-18] MEDS: INSULIN -REGULAR HUMAN 50 UNIT/0.5 ML ML SQ SCH ×2 (05:07→12:00)
[2023-07-18 06:32] LABS: Absolute Lymphocytes (CBC) 1.7 K/uL (0.7-4.9); Hematocrit 34.5 % (39.6-49.0); Lymphocytes % 15.5 % (15.3-44.8); MCV 91.7 fL (80-100); MPV 6.6 fL (7.6-11.3); Platelets 175 thou/uL (152-406); RBC Red Blood Cell Count 3.77 M/uL (4.33-5.43)
[2023-07-18 06:50] LABS: Albumin 2.5 g/dL (3.4-5.0); Bilirubin Total 0.6 mg/dL (0.2-1.0); Magnesium 2.1 mg/dL (1.6-2.4); Phosphorus 1.9 mg/dL (2.5-4.9); Potassium 3.7 mEq/L (3.5-5.1); Protein, Total 6.3 g/dL (6.4-8.2)
[2023-07-18] MEDS: FOLIC ACID 1 MG, MULTIVITAMINS INJ 10 ML, THIAMINE HCL 100 MG in NA CHLORIDE 0.9% 1,000 ML IV SCH (08:42)
[2023-07-18] MEDS: ENOXAPARIN 40 MG/0.4 ML SQ SCH (08:42)
[2023-07-18 13:52] VITALS: BP 136/88; TEMP 98
--- NOTE | 2023-07-18 14:36 | P.PN ---
Date of Service: 07/17/23 Subjective Pts labs are improved; lipase nl; ADVANCE DIET TOLERAED. Physical Examination - Vitals reviewed - Physical Exam General: Alert, In no apparent distress, Oriented x3, Cooperative Respiratory: Clear to auscultation bilaterally, Normal air movement Cardiovascular: No edema, Regular rate/rhythm, Normal S1 S2 Gastrointestinal: Normal bowel sounds, minimal tenderness Musculoskeletal: No clubbing, No swelling, No tenderness Neurological: No focal deficits Assessment and Plan - Assessment --Acute on chronic pancreatitis. --Acute pain. --Alcohol abuse. --Hypertension. --Vaping disorder. --Cannabis use disorder. --CKD 2. - Plan -Secondary to alcoholic abuse. Advance diet as tolerated. Lipase WNL. -Continue IV hydration. -We will manage pain with current pain medication regimen. -Alcohol withdrawal protocol in place. Patient placed on banana bag. Continue supportive care. Librium started -Poorly controlled. We will manage BP with labetalol as needed. -Patient counseled on cessation -Patient counseled on drug cessation. Continue supportive care. -Stable. We will continue to monitor renal functions.
--- NOTE | 2023-07-18 14:42 | P.DS ---
Discharge Date: 07/18/23 Reason for Admission: Abdominal pain Brief History of Present Illness: Patient is a 33-year-old male with a past medical history significant for alcohol abuse, hypertension, pancreatitis, vaping disorder, cannabis use disorder who presents with complaint of generalized abdominal pain that has been ongoing for the past 3 days. Patient rated pain as 9/10 in severity and described pain as sharp in quality. Patient also reported that he has not had a bowel movement in 3 days. Patient reports associated signs and symptoms of nausea, diaphoresis and poor appetite. Patient denies any other signs and symptoms. Symptoms are aggravated or relieved by nothing. Patient decided to present to the hospital for medical evaluation. Of note, patient reported that his last drink was yesterday. Hospital Course: Patient has done well during hospital stay. Patient's clinical status has improved. Patient denies any new complaints. Patient is tolerating low-fat diet. At this time, patient is stable for discharge with outpatient follow-up. Vital Signs/Physical Exam: Temp Pulse Resp BP Pulse Ox 98.0 F 89 14 136/88 96 07/18/23 12:00 07/18/23 12:00 07/18/23 12:00 07/18/23 12:00 07/18/23 12:00 General: Alert, In no apparent distress, Oriented x3 Laboratory Data at Discharge: WBC 10.90 thou/uL (4.3-10.9) 07/18/23 06:13 Hgb 11.9 g/dL (13.6-17.9) L 07/18/23 06:13 Hct 34.5 % (39.6-49.0) L 07/18/23 06:13 Plt Count 175 thou/uL (152-406) 07/18/23 06:13 Sodium 134 mEq/L (136-145) L 07/18/23 06:13 Potassium 3.7 mEq/L (3.5-5.1) 07/18/23 06:13 BUN 13 mg/dL (7-18) 07/18/23 06:13 Creatinine 0.66 mg/dL (0.70-1.30) L 07/18/23 06:13 Glucose 109 mg/dL (74-106) H 07/18/23 06:13 Phosphorus 1.9 mg/dL (2.5-4.9) L 07/18/23 06:13 Magnesium 2.1 mg/dL (1.6-2.4) 07/18/23 06:13 Total Bilirubin 0.6 mg/dL (0.2-1.0) 07/18/23 06:13 AST 15 U/L (15-37) 07/18/23 06:13 ALT 47 U/L (16-61) 07/18/23 06:13 Alkaline Phosphatase 78 U/L (45-117) 07/18/23 06:13 Triglycerides 158 mg/dL (<150) H 07/16/23 02:10 Cholesterol 65 mg/dL (<200) 07/16/23 02:10 HDL Cholesterol 19 mg/dL (40-60) L 07/16/23 02:10 Cholesterol/HDL Ratio 3.42 07/16/23 02:10 Lipase 71 U/L (13-75) 07/17/23 06:46 Home Medications: Fluoxetine HCl [Prozac] 40 mg PO DAILY #30 07/18/23 Hydrocodone 10/APAP 325 [[place] 10/325*] 1 tab PO Q6HP PRN #30 tab 07/18/23 Metoprolol Tartrate [Lopressor*] 50 mg PO BID 6AM 6PM #60 tab 07/18/23 Ondansetron [Zofran] 4 mg PO Q6H PRN #30 tab 07/18/23 chlordiazePOXIDE HCl [Chlordiazepoxide HCl] 10 mg PO TID #30 tab 07/18/23 New Medications: chlordiazePOXIDE HCl [Chlordiazepoxide HCl] 10 mg PO TID #30 tab Metoprolol Tartrate [Lopressor*] 50 mg PO BID 6AM 6PM #60 tab Hydrocodone 10/APAP 325 [[place] 10/325*] 1 tab PO Q6HP PRN #30 tab PRN Reason: Pain Scale 8-10 (Severe) Fluoxetine HCl [Prozac] 40 mg PO DAILY #30 Ondansetron [Zofran] 4 mg PO Q6H PRN #30 tab PRN Reason: Nausea / Vomiting Physician Discharge Instructions: -DC IV and DC home -Follow-up with PCP in 1 to 2 weeks -Follow-up with Gastroenterology in 1 to 2 weeks -Please call Dr. Rivas at [phone] if any questions regarding hospital stay -Please call nursing station at [phone] if any nursing or medication questions -Return to the emergency room if symptoms worsen Diet: low fat Activity: Fall precautions Followup: NONE,NONE [Primary Care Provider] - Time spent managing pt's care (in minutes): 35
--- NOTE | 2023-07-18 20:40 | RAD REPORT ---
EXAM DESCRIPTION: RAD - Shoulder Right 2 View - 07/18/2023 4:30 am CLINICAL HISTORY: The patient is 33 years old and is Male TECHNIQUE: Two or more views of the right shoulder. COMPARISON: No relevant prior studies available. FINDINGS: Bones/joints: Unremarkable. No acute fracture. No dislocation. Soft tissues: Unremarkable. IMPRESSION: No acute fracture or dislocation. Electronically signed by: Kings See MD 07/18/2023 4:52 AM CDT Due to temporary technical issues with the PACS/Fluency reporting system, reports are being signed by the in house radiologists without review as a courtesy to insure prompt reporting. The interpreting radiologist is fully responsible for the content of the report.
== END 2023-07-18 15:52 | disposition home or self-care (01) | DRG 440 ==
LOC: ER 09:10 → ERHOLD 12:10 → 2ND 13:24
PROVIDERS: ADMIT Hospitalist; ATTEND Hospitalist
DX: K85.20 Alcohol induced acute pancreatitis without necrosis or infection (principal); K86.0 Alcohol-induced chronic pancreatitis; U07.0 Vaping-related disorder; I12.9 Hypertensive chronic kidney disease with stage 1 through stage 4 chronic kidney disease, or unspecified chronic kidney disease; N18.2 Chronic kidney disease, stage 2 (mild); F10.20 Alcohol dependence, uncomplicated; F12.10 Cannabis abuse, uncomplicated; Z88.2 Allergy status to sulfonamides; Z71.6 Tobacco abuse counseling; Z71.51 Drug abuse counseling and surveillance of drug abuser; Z79.899 Other long term (current) drug therapy; Z87.891 Personal history of nicotine dependence
CPT/HCPCS: 36415; 74177; 80048; 80053; 80061; 81001; 82947; 83036; 83690; 83735; 83880; 84100; 84145; 84439; 84443; 85025; 87040; 96374; 96375; 99285; J0360; J1170; J1650; J1815; J2405; J2550; J3010; J3411; J3475; J3480; J7030; Q9967

== ENCOUNTER 2023-09-27 16:04 | Emergency (ER) | payer BC ==
--- OUTSIDE RECORDS SUMMARY | 2023-09-27 16:12 | XMS REPORT | Continuity of Care Document ---
:1990 Author Organization [facility] t Address [address] [facility] [address] [place] [address] Care Team Providers Name Role Phone Pcp, [...] Details Category Date Date Treatment Clinician Date Obesity Obesity Disease Active Univers (BMI (BMI 3-21 ity of 30-39.9) 30-39.9) 00:00: [address] Pancreatit Pancreatit Disease Active U nivers is, is, 3-21 ity of unspecifie un[place]ifie [place] 00 Medical pancreatit pancreatit Br anch is type is type Intractabl Intractabl Disease Active U nivers e vomiting e vomiting 3-21 it y of with with 00:00: [place] nausea nausea 00 Medical Branch ACUTE ACUTE Diagnosis Active 2020-08-27 Mem oria ALCOHOLIC ALCOHOLIC 08-22 09:42:00 l PANCREATIT PANCREATIT 00:00: He rmann IS IS Active 00 [facility]AT[facility] Diagnosis Active 2020-08-22 Memoria IS TIS Active 08-22 22:44:00 l 08/22/2020 00:00: Bakari n [facility] [address] [place] Acute Acute Problem 2020-08-28 Memor ia pancreatit pancreatit 21:20:21 l is with is with Per uninfected uninfected necrosis, necrosis, unspecifie unspecifie d d 08/28/2020 [facility] ALCOHOL ALCOHOL Diagnosis Active 2020-08-27 Memoria INDUCED INDUCED 09:42:00 l ACUTE ACUTE Per PANCREATIT PANCREATIT IS WITHO IS WITHO Active [facility] ACUTE ACUTE Diagnosis Active 2020-08-22 Mem oria PANCREATIT PANCREATIT 22:44:00 l IS WITH IS WITH [place] UNINFECTED UNINFECTED NECRO NECRO Active [facility] Allergies, Adverse Reactions, Alerts Allergy Allergy [...] Quantity Comments Source Exposure to Not sure [facility] SARS-CoV-2 (event) Medica l Branch Tobacco use and 2022-02-10 2022-02-10 Never used [employer] [facility] exposure 00:00:00 00:00:00 Medical Branch Tobacco Comment 2022-02-10 2022-02-10 uses vape Universit y [facility] 00:00:00 00:00:00 Medical Branch Social History 2020-08-23 2020-08-23 [facility] yessy 04:06:38 04:06:38 Sex [birth year] At [birth year] [facility] [place] 00:00:00 00:00:00 Medical Branch Smoking Status Start Date Stop Date Source Never smoker [facility] Medications Ordered Filled Start Stop Current Ordering Indication Dosage Frequency Signature Comments Components Source Medication Medication Date Date Medication? Clinician (SIG) Name Name foLIC acid 2021- No [id number] 1mg Take 1 Univers 1 mg tablet 3-24 04-24 tablet by it y of 00:00: 04:59 mouth [place] 00 :00 daily for Medical 30 days. Branch foLIC acid 2021- No [id number] 1mg Take 1 Univers 1 mg tablet 3-24 04-24 tablet by it y of 00:00: 04:59 mouth [place] 00 :00 daily for Medical 30 days. Branch thiamine 2021- No [id number] 100mg Take 1 Univers 100 mg 3-24 04-09 tablet by ity of tablet 00:00: 04:59 mouth [place] 00 :00 daily for Medical 15 days. Branch thiamine 2021- No [id number] 100mg Take 1 Univers 100 mg 3-24 04-09 tablet by ity of tablet 00:00: 04:59 mouth [place] 00 :00 daily for Medical 15 days. Branch buspirone Yes Take by Unive rs HCl (BUSPAR 3-23 mouth. ity of ORAL) 16:34: [address] fluoxetine Yes 40mg Take 40 mg U nivers HCl (PROZAC 3-23 by mouth. ity of ORAL) 16:34: [address] LISINOPRIL Yes 20mg Take 20 mg U nivers ORAL 3-23 by mouth. ity of 16:34: [address] hydroxyzine Yes Take by Uni vers pamoate 3-23 mouth. ity of (VISTARIL 16:34: [address] buspirone Yes Take by Unive rs HCl (BUSPAR 3-23 mouth. ity of ORAL) 16:34: [address] fluoxetine Yes 40mg Take 40 mg U nivers HCl (PROZAC 3-23 by mouth. ity of ORAL) 16:34: [address] Branch LISINOPRIL Yes 20mg Take 20 mg U nivers ORAL 02-12 by mouth. ity of 16:34: [address] Branch hydroxyzine Yes Take by Uni vers pamoate 02-12 mouth. ity of (VISTARIL 16:34: [place] ORAL) Medical Branch metoprolol 2021- No Take by Uni vers succinate 02-12 mouth ity of (TOPROL XL 15:00: [place]. [place] ORAL[place] 51 :00 [facility] Branch propranoloL 2021- No 10mg Take 10 mg Univers 10 mg 02-12 by mouth ity of tablet 15:00: 00:00 [place] needed. [place] 51 :00 [facility] Branch oxazepam 2021- No 15mg 15 mg, [...] First dose [place] mg 00 on [facility] 02/11/22 at Branch 1845, Until Discontinu ed, Routine sennosides- Yes 1{tbl} 1 tablet, Univers docusate 02-11 Oral, ity of sodium 23:30: DAILY, [place] (SENOKOT-S) 00 First dose Me dical 8.6-50 mg on [facility] per tablet 02/11/22 at 1 tablet 1830, Until Discontinu ed, Routine KCL No 40meq 40 mEq, Univers (KLOR-CON 02-11 Oral, ity of M20) tablet 14:45: 13:55 ONCE, 1 [place] 40 mEq 00 :00 dose, On [facility] 02/11/22 at 0945, Routine morpHINE 2022-0 2022- No 4mg 4 mg, Slow Un daylin injection 4 02-11 03-23 IV Push, ity of mg 09:07: [...] Yes 40mg 40 mg, Unive rs (LOVENOX) 3- Subcutaneo ity of injection 22:00: [place], DAILY, [place] 40 mg 00 First dose Medical on Thu02/10/22 at 1700, Until Discontinu ed, Routine foLIC acid 0 Yes 1mg 1 mg, Univer s (FOLATE) 3-21 Oral, ity of tablet 1 mg 14:00: [...] 1mg 1 mg, Slow Un day[place] (ATIVAN) 3- IV Push, ity of injection 1 09:52: PRN, 2 [place] mg 17 doses, Medical Starting Branch on Thu02/10/22 at 0452, Until Discontinu ed, Routine, Agitation morpHINE 2021-0 2021- No 4mg 4 mg, Slow Un daylin injection 4 02-10- IV Push, ity of mg 08:49: 08:28 Q4HPRN, [place] 55 :49 Starting Medical on Thu02/10/22 at [...] at 0330, Until Discontinu ed, Routine ondansetron 0 Yes 4mg 4 mg, Slow Univers (ZOFRAN 02-10 IV Push, ity of (PF)) 08:29: [facility] [place] injection 4 49 Starting Medi xin mg on Thu02/10/22 at 0329, Until Discontinu ed, Routine, Nausea and Vomiting (N/V) acetaminoph 2021-0 Yes 650mg 650 mg, Un daylin en 02-10 Oral, ity of (TYLENOL) 08:29: [facility] [place] tablet 650 49 Starting Medic al mg on Mon Branch 3/21/22 at 0329, Until Discontinu ed, Routine, Pain [...] 1 [place] 00 :00 dose, On Medical [facility] Branch 02/10/22 at 0230, STAT ondansetron 2021- No 4mg 4 mg, Slow Univers (ZOFRAN 02-10 IV Push, ity of (PF)) 06:37: 06:38 ONCE, 1 [place] injection 4 00 :00 dose, On Medi xin mg [facility] 02/10/22 at 0145, TIO pantoprazol 2021- No 40mg 40 mg, Uni vers e 02-10 Slow IV ity of (PROTONIX) 05:30: 04:42 Push, [place] injection 00 :00 ONCE, 1 Medical 40 mg dose, On Branch [facility] 02/10/22 at 0030 lactated Yes 1000mL [...] [place] mg 00 :00 dose, On Medical [facility] Branch 02/10/22 at 0000, STAT ondansetron 2021- No 4mg 4 mg, Slow Univers (ZOFRAN 02-10 IV Push, ity of (PF)) 05:00: 04:12 ONCE, 1 [place] injection 4 00 :00 dose, On Medi xin mg Mon Branch 02/10/22 at 0000, TIO morpHINE 2021- No 4mg 4 mg, Slow Un daylin injection 4 02-10 IV Push, ity of mg 05:00: 04:12 ONCE, 1 [place] 00 :00 dose, On Medical Mon Branch 02/10/22 at 0000, STAT NaCl 0.9% 2021- No 1000mL at 999 Uni vers (NS) bolus 02-10 mL/hr, ity of infusion 04:30: 03:28 1,000 mL, [place] as 1,000 mL 00 :00 IV Medical Infusion, Branch ONCE, 1 dose, On 02/09/22 at 2330, TIO iohexol 2021- No [id number] 120mL 120 mL, U nivers (OMNIPAQUE 02-10 Intravenou it y of 350 04:15: 04:06 s, ONCE, 1 [place] BULK-100 00 :00 dose, On Medical mL) [place] Branch injection 02/09/22 at 120 mL 2315, Routine Fenofibrate 2019-11 Yes 145 mg = 1 Memoria 145 MG Oral 0-04 tab, PO, l Tablet 16:30: Daily, # [place] 00 30 tab, 0 Refill(s), Pharmacy: [facility] #[id number], 190.5, cm, 08/22/20 23:01:00 CDT, Height, 122.045, kg, 08/22/20 23:01:00 CDT, Weight omega-3 2019-11 Yes 1 gm = 1 Memori a polyunsatur 0-04 cap, PO, l ated fatty 16:30: BID, # 60 He rmann acids 1000 00 cap, 0 mg oral Refill(s), capsule Pharmacy: [facility]ORE #[id number], 190.5, cm, 08/22/20 23:01:00 CDT, Height, 122.045, kg, 08/22/20 23:01:00 CDT, Weight Fenofibrate 2019-11 Yes 145 mg = 1 Memoria 145 MG Oral 0-04 tab, PO, l Tablet 16:30: Daily, # Per 00 30 tab, 0 Refill(s), Pharmacy: [facility] #[id number], 190.5, cm, 08/22/20 23:01:00 CDT, Height, 122.045, kg, 08/22/20 23:01:00 CDT, Weight omega-3 2019-11 Yes 1 gm = 1 Memori a polyunsatur 0-04 cap, PO, l ated fatty 16:30: BID, # 60 He rmann acids 1000 00 cap, 0 mg oral Refill(s), capsule Pharmacy: [facility] STORE #[id number], 190.5, cm, 08/22/20 23:01:00 CDT, Height, 122.045, kg, 08/22/20 23:01:00 CDT, Weight Fenofibrate 2019-11 Yes 145 mg = 1 Memoria 145 MG Oral 0-04 tab, PO, l Tablet 16:30: Daily, # [place] 00 30 tab, 0 Refill(s), Pharmacy: [facility] STORE #[id number], 190.5, cm, 08/22/20 23:01:00 CDT, Height, 122.045, kg, 08/22/20 23:01:00 CDT, Weight omega-3 2019-11 Yes 1 gm = 1 Memori a polyunsatur 0-04 cap, PO, l ated fatty 16:30: BID, # 60 He rmann acids 1000 00 cap, 0 mg oral Refill(s), capsule Pharmacy: [facility] STORE #[id number], 190.5, cm, 08/22/20 23:01:00 CDT, Height, 122.045, kg, 08/22/20 23:01:00 CDT, Weight Fenofibrate 2019-11 Yes 145 mg = 1 Memoria 145 MG Oral 0-04 tab, PO, l Tablet 16:30: Daily, # [place] 00 30 tab, 0 Refill(s), Pharmacy: [facility] STORE #[id number], 190.5, cm, 08/22/20 23:01:00 CDT, Height, 122.045, kg, 08/22/20 23:01:00 CDT, Weight omega-3 2019- Yes 1 gm = 1 Memori a polyunsatur 0-04 cap, PO, l ated fatty 16:30: BID, # 60 He rmann acids 1000 00 cap, 0 mg oral Refill(s), capsule Pharmacy: [facility] STORE #[id number], 190.5, cm, 08/22/20 23:01:00 CDT, Height, 122.045, kg, 08/22/20 23:01:00 CDT, Weight ciprofloxac 2019-11 Yes 500 mg = 1 Memoria in 500 mg 0-04 tab, PO, l oral tablet 16:26: Q12H, for H [place] 00 UTI, X 3 day, # 6 tab, 0 Refill(s), Pharmacy: [facility] STORE #[id number], 190.5, cm, 08/22/20 23:01:00 CDT, Height, 122.045, kg, 08/22/20 23:01:00 CDT, Weight Metronidazo 2019-11 Yes 500 mg = 1 Memoria le 500 MG 0-04 tab, PO, l Oral Tablet 16:26: Q8H, X 3 He rmann [Flagyl] 00 day, # 9 tab, 0 Refill(s), [id number], 190.5, cm, 08/22/20 23:01:00 CDT, Height, 122.045, kg, 08/22/20 23:01:00 CDT, Weight thiamine 2019-11 Yes 100 mg = 1 Mem oria 100 mg oral 0-04 tab, PO, l tablet 16:26: Daily, X [place] 00 30 day, # 30 tab, 0 Refill(s), [id number], 190.5, cm, 08/22/20 23:01:00 CDT, Height, 122.045, kg, 08/22/20 23:01:00 CDT, Weight Folic Acid 2019-11 Yes 1 mg = 1 Mem oria 1 MG Oral 0-04 tab, PO, l Tablet 16:26: Daily, # [place] 00 30 tab, 0 Refill(s), [id number], 190.5, cm, 08/22/20 23:01:00 CDT, Height, 122.045, kg, 08/22/20 23:01:00 CDT, Weight Chlordiazep 2019-11 Yes 10 mg = 1 M emoria oxide 0-04 cap, PO, l Hydrochlori 16:26: QID, X 3 He rmann de 10 MG 00 day, # 12 Oral cap, 0 Capsule Refill(s), Pharmacy: [facility] STORE #[id number], 190.5, cm, 08/22/20 23:01:00 CDT, Height, 122.045, kg, 08/22/20 23:01:00 CDT, Weight Lorazepam 1 2019-11 Yes 1 mg = 1 Me moria MG Oral 0-04 tab, PO, l Tablet 16:26: TID, PRN [place] [Ativan] 00 as needed for anxiety, X 7 day, # 24 tab, 0 Refill(s), Pharmacy: [facility] STORE #[id number], 190.5, cm, 08/22/20 23:01:00 CDT, Height, 122.045, kg, 08/22/20 23:01:00 CDT, Weight Famotidine 2019-11 Yes 20 mg = 1 Me moria 20 MG Oral 0-04 tab, PO, l Tablet 16:26: Q12H, # 14 Sharita nn [Pepcid] 00 tab, 0 Refill(s), Pharmacy: [facility] STORE #[id number], 190.5, cm, 08/22/20 23:01:00 CDT, Height, 122.045, kg, 08/22/20 23:01:00 CDT, Weight labetalol 2019-11 Yes 100 mg = 1 Me moria 100 mg oral 0-04 tab, PO, l tablet 16:26: TID, # 90 Bakari n 00 tab, 0 Refill(s), Pharmacy: [facility]ORE #[id number], 190.5, cm, 08/22/20 23:01:00 CDT, Height, 122.045, kg, 08/22/20 23:01:00 CDT, Weight ciprofloxac 2019-11 Yes 500 mg = 1 Memoria in 500 mg 0-04 tab, PO, l oral tablet 16:26: Q12H, for H ermann 00 UTI, X 3 day, # 6 tab, 0 Refill(s), Pharmacy: [facility] #[id number], 190.5, cm, 08/22/20 23:01:00 CDT, Height, 122.045, kg, 08/22/20 23:01:00 CDT, Weight Metronidazo 2019-11 Yes 500 mg = 1 Memoria le 500 MG 0-04 tab, PO, l Oral Tablet 16:26: Q8H, X 3 He rmann [Flagyl] 00 day, # 9 tab, 0 Refill(s), [id number], 190.5, cm, 08/22/20 23:01:00 CDT, Height, 122.045, kg, 08/22/20 23:01:00 CDT, Weight thiamine 2019-11 Yes 100 mg = 1 Mem oria 100 mg oral 0-04 tab, PO, l tablet 16:26: Daily, X [place] 00 30 day, # 30 tab, 0 Refill(s), [id number], 190.5, cm, 08/22/20 23:01:00 CDT, Height, 122.045, kg, 08/22/20 23:01:00 CDT, Weight Folic Acid 2019-11 Yes 1 mg = 1 Mem oria 1 MG Oral 0-04 tab, PO, l Tablet 16:26: Daily, # Per 00 30 tab, 0 Refill(s), [id number], 190.5, cm, 08/22/20 23:01:00 CDT, Height, 122.045, kg, 08/22/20 23:01:00 CDT, Weight Chlordiazep 2019-11 Yes 10 mg = 1 M emoria oxide 0-04 cap, PO, l Hydrochlori 16:26: QID, X 3 He rmann de 10 MG 00 day, # 12 Oral cap, 0 Capsule Refill(s), [id number], 190.5, cm, 08/22/20 23:01:00 CDT, Height, 122.045, kg, 08/22/20 23:01:00 CDT, Weight Lorazepam 1 2019-11 Yes 1 mg = 1 Me moria MG Oral 0-04 tab, PO, l Tablet 16:26: TID, PRN Per [Ativan] 00 as needed for anxiety, X 7 day, # 24 tab, 0 Refill(s), Pharmacy: [facility] #[id number], 190.5, cm, 08/22/20 23:01:00 CDT, Height, 122.045, kg, 08/22/20 23:01:00 CDT, Weight Famotidine 2019-11 Yes 20 mg = 1 Me moria 20 MG Oral 0-04 tab, PO, l Tablet 16:26: Q12H, # 14 Sharita nn [Pepcid] 00 tab, 0 Refill(s), Pharmacy: [facility]ORE #[id number], 190.5, cm, 08/22/20 23:01:00 CDT, Height, 122.045, kg, 08/22/20 23:01:00 CDT, Weight labetalol 2019-11 Yes 100 mg = 1 Me moria 100 mg oral 0-04 tab, PO, l tablet 16:26: TID, # 90 Bakari n 00 tab, 0 Refill(s), Pharmacy: [facility]ORE #[id number], 190.5, cm, 08/22/20 23:01:00 CDT, Height, 122.045, kg, 08/22/20 23:01:00 CDT, Weight ciprofloxac 2019-11 Yes 500 mg = 1 Memoria in 500 mg 0-04 tab, PO, l oral tablet 16:26: Q12H, for H ermann 00 UTI, X 3 day, # 6 tab, 0 Refill(s), Pharmacy: [facility]ORE #[id number], 190.5, cm, 08/22/20 23:01:00 CDT, Height, 122.045, kg, 08/22/20 23:01:00 CDT, Weight Metronidazo 2019-11 Yes 500 mg = 1 Memoria le 500 MG 0-04 tab, PO, l Oral Tablet 16:26: Q8H, X 3 He rmann [Flagyl] 00 day, # 9 tab, 0 Refill(s), Pharmacy: [facility]ORE #[id number], 190.5, cm, 08/22/20 23:01:00 CDT, Height, 122.045, kg, 08/22/20 23:01:00 CDT, Weight thiamine 2019-11 Yes 100 mg = 1 Mem oria 100 mg oral 0-04 tab, PO, l tablet 16:26: Daily, X [place] 00 30 day, # 30 tab, 0 Refill(s), Pharmacy: [facility] STORE #[id number], 190.5, cm, 08/22/20 23:01:00 CDT, Height, 122.045, kg, 08/22/20 23:01:00 CDT, Weight Folic Acid 2019-11 Yes 1 mg = 1 Mem oria 1 MG Oral 0-04 tab, PO, l Tablet 16:26: Daily, # Per 00 30 tab, 0 Refill(s), Pharmacy: [facility]ORE #[id number], 190.5, cm, 08/22/20 23:01:00 CDT, Height, 122.045, kg, 08/22/20 23:01:00 CDT, Weight Chlordiazep 2019-11 Yes 10 mg = 1 M emoria oxide 0-04 cap, PO, l Hydrochlori 16:26: QID, X 3 He rmann de 10 MG 00 day, # 12 Oral cap, 0 Capsule Refill(s), Pharmacy: [facility]ORE #[id number], 190.5, cm, 08/22/20 23:01:00 CDT, Height, 122.045, kg, 08/22/20 23:01:00 CDT, Weight Lorazepam 1 2019-11 Yes 1 mg = 1 Me moria MG Oral 0-04 tab, PO, l Tablet 16:26: TID, PRN [place] [Ativan] 00 as needed for anxiety, X 7 day, # 24 tab, 0 Refill(s), Pharmacy: [facility] #[id number], 190.5, cm, 08/22/20 23:01:00 CDT, Height, 122.045, kg, 08/22/20 23:01:00 CDT, Weight Famotidine 2019-11 Yes 20 mg = 1 Me moria 20 MG Oral 0-04 tab, PO, l Tablet 16:26: Q12H, # 14 Sharita nn [Pepcid] 00 tab, 0 Refill(s), Pharmacy: [facility] #[id number], 190.5, cm, 08/22/20 23:01:00 CDT, Height, 122.045, kg, 08/22/20 23:01:00 CDT, Weight labetalol 2019-11 Yes 100 mg = 1 Me moria 100 mg oral 0-04 tab, PO, l tablet 16:26: TID, # 90 Bakari n 00 tab, 0 Refill(s), Pharmacy: [facility] #[id number], 190.5, cm, 08/22/20 23:01:00 CDT, Height, 122.045, kg, 08/22/20 23:01:00 CDT, Weight ciprofloxac 2019-11 Yes 500 mg = 1 Memoria in 500 mg 0-04 tab, PO, l oral tablet 16:26: Q12H, for H [place] 00 UTI, X 3 day, # 6 tab, 0 Refill(s), Pharmacy: [facility] #[id number], 190.5, cm, 08/22/20 23:01:00 CDT, Height, 122.045, kg, 08/22/20 23:01:00 CDT, Weight Metronidazo 2019-11 Yes 500 mg = 1 Memoria le 500 MG 0-04 tab, PO, l Oral Tablet 16:26: Q8H, X 3 He rmann [Flagyl] 00 day, # 9 tab, 0 Refill(s), Pharmacy: [facility] #[id number], 190.5, cm, 08/22/20 23:01:00 CDT, Height, 122.045, kg, 08/22/20 23:01:00 CDT, Weight thiamine 2019-11 Yes 100 mg = 1 Mem oria 100 mg oral 0-04 tab, PO, l tablet 16:26: Daily, X [place] 00 30 day, # 30 tab, 0 Refill(s), Pharmacy: [facility] #[id number], 190.5, cm, 08/22/20 23:01:00 CDT, Height, 122.045, kg, 08/22/20 23:01:00 CDT, Weight Folic Acid 2019-11 Yes 1 mg = 1 Mem oria 1 MG Oral 0-04 tab, PO, l Tablet 16:26: Daily, # [place] 00 30 tab, 0 Refill(s), Pharmacy: [facility] #[id number], 190.5, cm, 08/22/20 23:01:00 CDT, Height, 122.045, kg, 08/22/20 23:01:00 CDT, Weight Chlordiazep 2019-11 Yes 10 mg = 1 M emoria oxide 0-04 cap, PO, l Hydrochlori 16:26: QID, X 3 He rmann de 10 MG 00 day, # 12 Oral cap, 0 Capsule Refill(s), Pharmacy: [facility] #[id number], 190.5, cm, 08/22/20 23:01:00 CDT, Height, 122.045, kg, 08/22/20 23:01:00 CDT, Weight Lorazepam 1 2019-11 Yes 1 mg = 1 Me moria MG Oral 0-04 tab, PO, l Tablet 16:26: TID, PRN Per [Ativan] 00 as needed for anxiety, X 7 day, # 24 tab, 0 Refill(s), Pharmacy: [facility] #[id number], 190.5, cm, 08/22/20 23:01:00 CDT, Height, 122.045, kg, 08/22/20 23:01:00 CDT, Weight Famotidine 2019-11 Yes 20 mg = 1 Me moria 20 MG Oral 0-04 tab, PO, l Tablet 16:26: Q12H, # 14 Sharita nn [Pepcid] 00 tab, 0 Refill(s), Pharmacy: [facility] #[id number], 190.5, cm, 08/22/20 23:01:00 CDT, Height, 122.045, kg, 08/22/20 23:01:00 CDT, Weight labetalol 2019-11 Yes 100 mg = 1 Me moria 100 mg oral 0-04 tab, PO, l tablet 16:26: TID, # 90 Bakari n 00 tab, 0 Refill(s), Pharmacy: [facility] #[id number], 190.5, cm, 08/22/20 23:01:00 CDT, Height, 122.045, [...] oria 0-03 to exceed l 22:12: 400mg/day. [place] 00 (Same As: Ultram) Tramadol 2019-11 No Notes: Not Mem oria 0-03 to exceed l 22:12: 400mg/day. Per 00 (Same As: Ultram) Tramadol 2019-11 No Notes: Not Mem oria 0-03 to exceed l 22:12: 400mg/day. [place] 00 (Same As: Ultram) Tramadol 2019-11 No [...] ia 0-03 (Same as: l 17:00: Prinivil, [place] 00 Zestril) Lisinopril 2019-11 No Notes: Memor ia 0-03 (Same as: l 17:00: Prinivil, [place] 00 Zestril) Potassium 2019-11 No Notes: Memori [...] s with feeding tube less than 14 [place] (Dobhoff, J-tube etc) and pediatric and patients. [...] phosphate 0-03 Infuse l 16:35: over 4 [place] 00 hour. Do not infuse phosphorou s [...] Oxide 0-03 (Same as: l 16:35: Mag-Ox [place] 00 400) Magnesium oxide 056ui=146o g elemental magnesium Dose=____m g magnesium oxide (___mg elemental magnesium) Calcium 2019-11 No Notes: Memoria Gluconate 0-03 WASTE: F/P l 16:35: - Sink; E [place] 00 - Municipal Trash Bin Potassium 2019-11 [...] s with feeding tube less than 14 [place] (Dobhoff, J-tube etc) and pediatric and patients. potassium 2019-11 No Notes: Memori a phosphate-s 0-03 (Same as: l odium 16:35: Phos-NaK) [place] phosphate 00 Each 1.5 250 mg-280 gm pkt has mg-160 mg 250mg oral powder phosphorou for s. Mix reconstitut w/2.5oz ion water and stir. potassium 2019-11 No Notes: Memori a phosphate 0-03 (Same as: l 16:35: K [place] 00 Phosphate. ) Do not infuse phosphorou s concurrent ly in the same line as TPN or IVF that contains calcium. For double lumen central lines, phosphorou s may be infused in a separate lumen from TPN. 1 mMol phoshate has 1.47 mEq potassium Infuse over 4 hours sodium 2019-11 No Notes: Memoria phosphate 0-03 Infuse l 16:35: over 4 [place] 00 hour. Do not infuse phosphorou s concurrent ly in the same line as TPN or IVF that contains calcium. For double lumen central lines, phosphorou s may be infused in a separate lumen from TPN. Magnesium 2019-11 No Notes: Memori a Sulfate 0-03 WASTE: F/P l 16:35: - Sink; E [place] - [facility] Trash [facility] Magnesium 2019-11 No Notes: Memori a Oxide 0-03 (Same as: l 16:35: Mag-Ox Per 00 400) Magnesium oxide 845yt=545r g elemental magnesium Dose=____m g magnesium oxide [...] s with feeding tube less than 14 [place] (Dobhoff, J-tube etc) and pediatric and patients. potassium 2019-11 No Notes: Memori a phosphate-s 0-03 (Same as: l odium 16:35: Phos-NaK) [place] phosphate 00 Each 1.5 250 mg-280 gm pkt has mg-160 mg 250mg oral powder phosphorou for s. Mix reconstitut w/2.5oz ion water and stir. potassium 2019-11 No Notes: Memori a phosphate 0-03 (Same as: l 16:35: K [place] Phosphate. ) Do not infuse phosphorou s concurrent ly in the same line as TPN or IVF that contains calcium. For double lumen central lines, phosphorou s may be infused in a separate lumen from TPN. 1 mMol phoshate has 1.47 mEq potassium Infuse over 4 hours sodium 2019-11 No Notes: [facility] phosphate 0-03 Infuse l 16:35: over 4 [place] 00 hour. Do not infuse phosphorou s concurrent ly in the same line as TPN or IVF that contains calcium. For double lumen central lines, phosphorou s may be infused in a separate lumen from TPN. Magnesium 2019-11 No Notes: [facility] a Sulfate 0-03 WASTE: F/P l 16:35: - Sink; E [place] [facility] Magnesium 2019-11 No Notes: [facility] Oxide 0-03 (Same as: l 16:35: Mag-Ox Per 00 400) Magnesium oxide 273av=550o g elemental magnesium Dose=____m g magnesium oxide (___mg elemental magnesium) Calcium 2019-11 No Notes: [facility] Gluconate 0-03 WASTE: F/P l 16:35: - Sink; E [place] [facility] Potassium 2019-11 No [...] s with feeding tube less than 14 [place] (Dobhoff, J-tube etc) and pediatric and patients. potassium 2019-11 No Notes: [facility] phosphate-s 0-03 (Same as: l odium 16:35: Phos-NaK) [place] phosphate 00 Each 1.5 250 mg-280 gm [...] Oxide 0-03 (Same as: l 16:35: Mag-Ox [place] 00 400) Magnesium oxide 669dr=714b g elemental magnesium Dose=____m g magnesium oxide (___mg elemental magnesium) Calcium 2019-11 No Notes: [facility] Gluconate 0-03 WASTE: F/P l 16:35: - Sink; E [place] [facility] Potassium 2019-11 No [...] 15:00: (Same Per 00 as:Trandat e, Normodyne) Labetalol 2019-11 No Notes: [facility] a 0-03 With food. l 15:00: (Same [place] 00 as:Trandat e, Normodyne) Labetalol 2019-11 No Notes: [facility] a 0-03 With food. l 15:00: (Same [place] 00 as:Trandat e, Normodyne) Labetalol 2019-11 No Notes: [facility] a 0-03 With food. l 15:00: (Same [place] 00 as:Trandat e, Normodyne) Lactulose 2019-11 No Notes: [facility] a 667 MG/ML 0-02 (Same l Oral 21:03: as:Chronul Per Solution 00 ac) Haldol 2019-11 No Notes: Memoria 0-02 (Same as: l 21:03: Haldol) Pre Lactulose 2019-11 No Notes: Memori a 667 MG/ML 0-02 (Same l Oral 21:03: as:Chronul [place] Solution 00 ac) Haldol 2019-11 No Notes: Memoria 0-02 (Same as: l 21:03: Haldol) Per Lactulose 2019-11 No Notes: Memori a 667 MG/ML 0-02 (Same l Oral 21:03: as:Chronul [place] Solution 00 ac) Haldol 2019-11 No Notes: Memoria 0-02 (Same as: l 21:03: Haldol) [place] Lactulose 2019-11 No Notes: Memori a 667 MG/ML 0-02 (Same l Oral 21:03: as:Chronul Per Solution 00 ac) Haldol 2019-11 No Notes: Memoria 0-02 (Same as: l 21:03: Haldol) [place] Ciprofloxac 2019-11 No Notes: Do M emoria in 0-02 not l 14:00: refrigerat [place] 00 e Flagyl 2019-11 No Notes: Memoria 0-02 (Same as: l 14:00: Flagyl) [place] Avoid alcohol. Ciprofloxac 2019-11 No Notes: Do M emoria in 0-02 not l 14:00: refrigerat [place] 00 e Flagyl 2019-11 No Notes: Memoria 0-02 (Same as: l 14:00: Flagyl) [place] Avoid alcohol. Ciprofloxac 2019-11 No Notes: Do M emoria in 0-02 not l 14:00: refrigerat [place] e Flagyl 2019-11 No Notes: Memoria 0-02 (Same as: l 14:00: Flagyl) Per Avoid alcohol. Ciprofloxac 2019-11 No Notes: Do M emoria in 0-02 not l 14:00: refrigerat [place] e Flagyl 2019-11 No Notes: Memoria 0-02 (Same as: l 14:00: Flagyl) Per Avoid alcohol. Famotidine 2019-11 No Notes: Memor ia 20 MG Oral 0-02 (Same as: l Tablet 02:00: Pepcid) [place] [Pepcid] 00 168 HR 2019-11 No Notes: Memoria Clonidine 0-02 Patch l 0.02317 02:00: delivers Bakari n MG/HR 00 0.2 mg/24 Transdermal hours; Patch Patch is applied weekly. "Remove old patch before applicatio n of new patch" (Same As: Catapres-T TS-2) Famotidine 2019-11 No Notes: Memor ia 20 MG Oral 0-02 (Same as: l Tablet 02:00: Pepcid) [place] [Pepcid] 00 168 HR 2019-11 No Notes: Memoria Clonidine 0-02 Patch l 0.09965 02:00: delivers Bakari n MG/HR 00 0.2 mg/24 Transdermal hours; Patch Patch is applied weekly. "Remove old patch before applicatio n of new patch" (Same As: Catapres-T TS-2) Famotidine 2019-11 No Notes: Memor ia 20 MG Oral 0-02 (Same as: l Tablet 02:00: Pepcid) Per [Pepcid] 00 168 HR 2019-11 No Notes: Memoria Clonidine 0-02 Patch l 0.07956 02:00: delivers Bakari n MG/HR 00 0.2 mg/24 Transdermal hours; Patch Patch is applied weekly. "Remove old patch before applicatio n of new patch" (Same As: Catapres-T TS-2) Famotidine 2019-11 No Notes: Memor ia 20 MG Oral 0-02 (Same as: l Tablet 02:00: Pepcid) Per [Pepcid] 00 168 HR 2019-11 No Notes: Memoria Clonidine 0-02 Patch l 0.93927 02:00: delivers Bakari n MG/HR 00 0.2 [...] a 0-02 (Same as: l 01:41: Normodyne, [place] 00 Trandate) Push over 2 minutes Give bolus over 2-3 minutes. Labetalol 2019-11 No Notes: Memori a 0-02 (Same as: l 01:41: Normodyne, [place] 00 Trandate) Push over 2 minutes Give [...] 0-01 (Same As: l Hydrochlori 14:00: Librium) rmann de 10 MG Oral Capsule Folic Acid 2019-11 No Notes: Memor ia 0-01 (Same as: l 14:00: Folvite) multivitami 2019-11 No Notes: Reagan sharonda n 0-01 (Same l 14:00: as:Thera) WASTE: F/P - Black; E - Municipal Trash Bin Take with food. Thiamine 2019-11 No Notes: Memoria 0-01 (Same As: l 14:00: Vitamin Per B1) multivitami 2019-11 No Notes: Reagan sharonda n with 0-01 (Same l minerals 14:00: as:Thera-M Her newberry 00 , Theragran- M) WASTE: F/P - Black; E - Municipal Trash Bin Give with food. Reglan 2019-11 No Notes: Memoria 0-01 (Same as: l 13:26: Reglan) [place] 00 Reglan 2019-11 No Notes: Memoria 0-01 (Same as: l 13:26: Reglan) Per 00 Reglan 2019-11 No Notes: Memoria 0-01 (Same as: l 13:26: Reglan) Per 00 Reglan 2019-11 No Notes: Memoria 0-01 (Same [...] sharonda 0-01 Route: l 13:13: IVPB, Q4H, [place] Dosing Weight 122.045, kg, PRN Nausea & Vomiting, Start date: 08/23/20 8:13:00 CDT, Duration: 30 day, Stop date: 09/22/20 8:12:00 CDT Phenergan 2019-11 No 12.5 mg, Reagan sharonda 0-01 Route: l 13:13: IVPB, Q4H, Per 00 Dosing Weight 122.045, kg, PRN Nausea & Vomiting, Start date: 08/23/20 8:13:00 CDT, Duration: 30 day, Stop date: 09/22/20 8:12:00 CDT Phenergan 2019-11 No 12.5 mg, Reagan sharonda 0-01 Route: l 13:13: IVPB, Q4H, [place] 00 Dosing Weight 122.045, kg, PRN Nausea & [...] a 0-01 Same as l 13:00: Merrem Per Lovenox 2019-11 No Notes: Memoria 0-01 (Same as: l 13:00: Lovenox) meropenem 2019-11 No Notes: Memori a 0-01 Same as l 13:00: Merrem Per Lovenox 2019-11 No Notes: Memoria 0-01 (Same as: l 13:00: Lovenox) meropenem 2019-11 No Notes: Memori a 0-01 Same as l 13:00: Merrem [place] Lovenox 2019-11 No Notes: Memoria 0-01 (Same as: l 13:00: Lovenox) meropenem 2019-11 No Notes: Memori a 0-01 Same as l 13:00: Merrem [place] Lovenox 2019-11 No Notes: Memoria 0-01 (Same [...] moria IV 0-01 1,000 l 04:14: ml/hr, [place] 00 Infuse Over: 1 hr, Route: IV, 1,000, Drug form: INJ, ONCE, Priority: STAT, Dosing Weight 122.045 kg, Start date: 08/22/20 23:14:00 CDT, Stop date: 08/22/20 23:14:00 CDT, 0 lisinopril 2019-11 Yes 10 mg = 1 Me moria 10 mg oral 0-01 tab, PO, l tablet 04:14: Daily, # [place] 00 30 tab, 0 Refill(s) NS (Bolus) 2019-11 No 1,000 mL, Me moria IV 0-01 1,000 l 04:14: ml/hr, [place] 00 Infuse Over: 1 hr, Route: IV, [...] moria IV 0-01 1,000 l 04:14: ml/hr, [place] 00 Infuse Over: 1 hr, Route: IV, 1,000, Drug form: INJ, ONCE, Priority: STAT, Dosing Weight 122.045 kg, Start date: 08/22/20 23:14:00 CDT, Stop date: 08/22/20 23:14:00 CDT, 0 Ativan 2019-11 No Notes: Memoria 0-01 (Same as: l 04:13: Ativan) Ativan 2019-11 No Notes: Memoria 0-01 (Same as: l 04:13: Ativan) [place] 00 Ativan 2019-11 No Notes: Memoria 0-01 (Same as: l 04:13: Ativan) Per 00 Ativan 2019-11 No Notes: Memoria 0-01 (Same as: l 04:13: Ativan) [place] NS 1,000 mL 2019-11 No 1,000 mL, M emoria 0 Rate: 100 l 04:11: ml/hr, [place] Infuse over: 10 hr, Route: IV, Dosing Weight 122.045 kg, Total Volume: 1,000, Start date: 08/22/20 23:11:00 CDT, Duration: 30 day, Stop date: 09/21/20 23:10:00 CDT, 2.56, m2, 0 Dilaudid 2019-11 No Notes: Memoria 0-01 Same as: l 04:11: Dilaudid NS 1,000 mL 2019-11 No 1,000 mL, M emoria 0 Rate: 100 l 04:11: ml/hr, Per Infuse over: 10 hr, Route: IV, Dosing Weight 122.045 kg, Total Volume: 1,000, Start date: 08/22/20 23:11:00 CDT, Duration: 30 day, Stop date: 09/21/20 23:10:00 CDT, 2.56, m2, 0 Dilaudid 2019-11 No Notes: Memoria 0-01 Same as: l 04:11: Dilaudid NS 1,000 mL 2019-11 No 1,000 mL, M emoria 0- Rate: 100 l 04:11: ml/hr, Per 00 Infuse over: 10 hr, Route: IV, Dosing Weight 122.045 kg, Total Volume: 1,000, Start date: 08/22/20 23:11:00 CDT, Duration: 30 day, Stop date: 09/21/20 23:10:00 CDT, 2.56, m2, 0 Dilaudid 2019-11 No Notes: Memoria 0-01 Same as: cole 04:11: Dilaudid NS 1,000 mL 2019-11 No 1,000 mL, M eronria 0- Rate: 100 l 04:11: ml/hr, Infuse over: 10 hr, Route: IV, Dosing Weight 122.045 kg, Total Volume: 1,000, Start date: 08/22/20 23:11:00 CDT, Duration: 30 day, Stop date: 09/21/20 23:10:00 CDT, 2.56, m2, 0 Dilaudid 2019-11 No Notes: Memoria 0-01 Same as: cole 04:11: Dilaudid Dextrose 2019-11 No 12.5 gm, Memor ia 50% Syringe 0-01 25 mL, l (D50W) 04:10: Route: [place] 00 IVP, Drug Form: INJ, Dosing Weight 122.045, kg, PRN, PRN Blood Glucose Results, Start date: 08/22/20 23:10:00 CDT, Duration: 30 day, Stop date: 09/21/20 23:09:00 CDT, 0 Glucagon 2019-11 No 1 mg, Memoria 0-01 Route: IM, l 04:10: Drug form: [place] 00 PDR/INJ, PRN, Dosing Weight 122.045, kg, PRN Blood Glucose Results, Start date: 08/22/20 23:10:00 CDT, Duration: 30 day, Stop date: 09/21/20 23:09:00 CDT, 0 Ondansetron 2019-11 No Notes: Reagan sharonda 0-01 (Same as: cole 04:10: Charleyfralvarez) MEDICATION WASTE Product Size: 4 mg Product Wasted: ___ mg Dextrose 2019-11 No 12.5 gm, Memor ia 50% Syringe 0-01 25 mL, l (D50W) 04:10: Route: Per 00 IVP, Drug Form: INJ, Dosing Weight 122.045, kg, PRN, PRN Blood Glucose Results, Start date: 08/22/20 23:10:00 CDT, Duration: 30 day, Stop date: 09/21/20 23:09:00 CDT, 0 Glucagon 2020-1 No 1 mg, Memoria 0-01 Route: IM, l 04:10: Drug form: [place] 00 PDR/INJ, PRN, Dosing Weight 122.045, kg, [...] 0-01 Route: IM, l 04:10: Drug form: [place] 00 PDR/INJ, PRN, Dosing Weight 122.045, kg, PRN Blood Glucose Results, Start date: 08/22/20 23:10:00 CDT, Duration: 30 day, Stop date: 09/21/20 23:09:00 CDT, 0 Ondansetron 2019-11 No Notes: Reagan sharonda 0-01 (Same as: l 04:10: Zofran) [place] 00 MEDICATION WASTE Product Size: 4 mg Product Wasted: ___ mg Vital Signs Vital Name Observation Time Observation Value Comments Source Systolic blood 2022-02-12 17:02:00 158 mm[Hg] [facility] Diastolic blood 2022-02-12 17:02:00 94 mm[facility]Hg[facility] Heart rate 2022-02-12 17:02:00 84 /min [facility] Respiratory rate 2022-02-12 17:02:00 18 /min [facility] Oxygen saturation in 2022-02-12 17:02:00 95 /min [facility] Arterial blood by [facility] Pulse oximetry [place] Body temperature 2022-02-12 17:01:00 36.11 Gladys [facility] Body weight 2022-02-12 09:19:00 130.001 kg [facility] BMI 2022-02-12 09:19:00 35.82 kg/m2 [facility] Body height 2022-02-10 08:06:00 190.5 cm [facility] Temperature Oral (F) 2020-08-26 13:00:00 98.9 F [facility] [place] Heart Rate 2020-08-26 13:00:00 [facility] [place] Respitory Rate 2020-08-26 13:00:00 Memori al Per Systolic (mm Hg) 2020-08-26 13:00:00 Reagan rial [place] Diastolic (mm Hg) 2020-08-26 13:00:00 Mem orial [place] Temperature Oral (F) 2020-08-26 09:00:00 98.4 F [facility] Per Heart Rate 2020-08-26 09:00:00 [facility] [place] Respitory Rate 2020-08-26 09:00:00 Memori al [place] Systolic (mm Hg) 2020-08-26 09:00:00 Reagan rial Per Diastolic (mm Hg) 2020-08-26 09:00:00 Mem orial [place] Systolic (mm Hg) 2020-08-26 07:30:00 Reagan rial [place] Diastolic (mm Hg) 2020-08-26 07:30:00 Mem orial Per Heart Rate 2020-08-26 07:30:00 [facility] [place] Temperature Oral (F) 2020-08-26 05:00:00 100.6 F [facility] Per Respitory Rate 2020-08-26 05:00:00 Lubna Acunaann Height 2020-08-23 04:01:00 190.5 cm [facility] Weight 2020-08-23 04:01:00 [facility]culated 2020-08-23 04:01:00 Lubna Acunaann Procedures Procedure Date / Time Performing Clinician Source Performed LIPASE 2022-02-11 08:44:00 Dino [facility] MAGNESIUM 2022-02-11 08:44:00 Rodriguez Andres [facility] BASIC METABOLIC PANEL 2022-02-11 08:44:00 Dino [facility] (NA, K, CL, CO2, GLUCOSE, Medica l Branch BUN, CREATININE, CA) CBC WITH DIFF 2022-02-11 08:44:00 [facility] LOW-DENSITY LIPOPROTEIN, 2022-02-10 15:01:00 [facility] LIPID PANEL ([id number])(TOTAL 2022-02-10 15:01:00 [facility]LE[facility], Medical [place] TRIGLYCERIDES, HDL) HB ECG ROUTINE & RHYTHM 2022-02-10 04:21:20 Chastity Giles [facility] STRIP [facility] CT ABDOMEN PELVIS W 2022-02-10 04:11:02 Chastity Giles [facility] COVID-19 (ID NOW RAPID 2022-02-10 03:58:00 Chastity Giles [facility] TESTING) Medical [place] [facility] ONLY COVID 2022-02-10 03:58:00 Chastity Giles [facility] N-TERMINAL PRO-BNP 2022-02-10 03:28:00 Chastity Giles [facility] URINE DRUG (IMMUNOASSAY) 2022-02-10 03:28:00 [facility] Medical [facility] SCREEN W/O REFLEX LIPASE 2022-02-10 03:28:00 Chastity Giles [facility] COMP. METABOLIC PANEL 2022-02-10 03:28:00 Chastity Giles [facility] ([id number]) [facility] ETHANOL 2022-02-10 03:28:00 Chastity Giles [facility] CBC WITH DIFF 2022-02-10 03:28:00 Chastity Giles [facility] URINALYSIS 2022-02-10 03:28:00 Chastity Giles [facility] NOTICE OF PRIVACY 2022-02-10 02:09:50 Doctor Unassyelena, [facility] PRACTICES [place] [facility] CONSENT/REFUSAL FOR 2022-02-10 02:08:16 Doctor Unassyelena, [facility] DIAGNOSIS AND TREATMENT [place] [facility] Encounters Start End Encounter Admission Attending Care Care Encounter Source Date/Time Date/Time Type Type Clinicians Facility Department ID 2022-02-13 2022-02-13 Transition RACHAEL Dowd [id number] Univers 00:00:00 00:00:00 of Care Kaela DUNN [id number] ity of JOELLEZA [id number] [facility] [id number] [facility] [address] Branch 2022-02-09 2022-02-12 Hospital Chastity Giles [facility] [id number] Univers 21:40:00 16:33:00 Encounter Berenice Sunsal GERALDINE [id number] ity of Rodriguez Andres [id number] [facility] [id number] [place] [address] Branch 2022-02-09 2022-02-12 Inpatient [place] AND[facility] FATEMEH [id number] Univers 21:40:00 16:33:00 RODRIGUEZ delgado [facility] 2020-08-23 2020-08-26 Inpatient [facility] [id number] Memoria 03:35:00 18:15:00 r [place] 75 l [facility] 2020-08-23 2020-08-26 Inpatient [facility] [id number] Memoria 03:35:00 18:15:00 r Per 75 l [facility] 2020-08-22 2020-08-26 Inpatient U SAJJA, BL MED 0274 MHBL 22:35:00 13:15:00 JEFF 2020-08-22 2020-08-26 Outpatient Sajja, MHPL MHPL [id number] 22:35:00 13:15:00 Jeff 75 2020-08-22 2020-08-26 Outpatient Sajalberto, PL PL [id number] 22:35:00 13:15:00 Jeff 74 Results Test Description Test Time Test Comments Results Result Comments Source MAGNESIUM 2022-02-11 14:38:24 Test Item Value Reference Range Interpretation Comme nts MAGNESIUM (test code = 1189185386) 1.6 mg/dL 1.7-2.4 L Lab Interpretation (test code = 29210-2) Abnormal [facility] (NA, K, CL, CO2, GLUCOSE, BUN, CREATININE, CA)2022-02-11 10:17:51 Test Item Value Reference Range Interpretation Comments NA (test code = 135 mmol/L 135-145 6260269828) K (test code = 3.4 mmol/L 3.5-5.0 L 2834649358) CL (test code = 101 mmol/L 98-108 9927721182) CO2 TOTAL (test code = 24 mmol/L 23-31 3395519566) AGAP (test code = 2-16 4234858933) BUN (test code = 8 mg/dL 7-23 5242525262) GLUCOSE (test code = 117 mg/dL 70-110 H 8787993045) CREATININE (test code = 0.57 mg/dL 0.60-1.25 L 4008484620) CALCIUM (test code = 8.0 mg/dL 8.6-10.6 L 0682101186) eGFR (test code = mL/min/1.73m2 0949477311) JOEY (test code = JOEY) Association of [...] tests). Lab Interpretation Abnormal (test code = 40925-0) [facility] 10:16:51 Test Item Value Reference Range Interpretation Comments LIPASE (test code = 0896816658) 760 U/L 0-220 H Lab Interpretation (test code = Abnormal 82810-6) [facility] with [id number] 10:04:30 Test Item Value Reference Range Interpretation Comments WBC (test code = See_Comment [Automated 6690-2) message] The sy stem which generated this result transmitted reference range : 4.20 - 10.70 10*3/?L. The reference range was not used to interpret this result as normal/abnormal . RBC (test code = See_Comment [Automated 789-8) message] The sy stem which generated this [...] RDW-SD (test code = 41.1 fL 38.5-51.6 19302-4) RDW-CV (test code = 12.6 % 12.1-15.4 788-0) PLT (test code = See_Comment [Automated 777-3) message] The sy stem which generated this result transmitted reference range : 150 - 328 10*3/ ?L. The reference r jose guadalupe was not used to interpret this result as normal/abnormal . MPV (test code = 8.8 fL 9.8-13.0 L 98907-8) NRBC/100 WBC (test See_Comment [Automat ed code = 9367470609) message] The system which generated this result transmitted reference range : 0.0 - 10.0 /100 WBCs. The refer ence range was not u sed to interpret th is result as normal/abnormal . NRBC x10^3 (test code <0.01 See_Comment [Auto mated = 9337730177) message] The s ystem which generated this result transmitted reference range : 10*3/?L. The reference range was not used to interpret this result as normal/abnormal . GRAN MAT (NEUT) % 67.4 % (test code = 770-8) IMM GRAN % (test code 0.30 % = 8155524286) LYMPH % (test code = 21.3 % 736-9) MONO % (test code = 6.1 % 5905-5) EOS % (test code = 4.5 % 713-8) BASO % (test code = 0.4 % 706-2) GRAN MAT x10^3(ANC) 5.00 10*3/uL 1.99-6.95 (test code = 0377943901) IMM GRAN x10^3 (test <0.03 0.00-0.06 code = 9322382477) LYMPH x10^3 (test code 1.58 10*3/uL 1.09-3.23 = 731-0) MONO x10^3 (test code 0.45 10*3/uL 0.36-1.02 = 742-7) EOS x10^3 (test code = 0.33 10*3/uL 0.06-0.53 711-2) BASO x10^3 (test code 0.03 10*3/uL 0.01-0.09 = 704-7) Lab Interpretation Abnormal (test code = 71034-3) [facility], [id number] 20:39:08 Test Item Value Reference Range Interpretation Comments dLDL Chol (test code = 45725-9) 116 mg/dL <130 Lab Interpretation (test code = Normal 73944-6) [facility]view[facility] (60218)(TOTAL CHOLESTEROL, TRIGLYCERIDES, HDL)2022-02-10 15:44:01 Test Item Value Reference Range Interpretation Comments CHOL (test code = 226 mg/dL 120-200 H 8926446171) HDL (test code = 76 mg/dL >40 9811663554) HDLC RATIO (test code = See_Comment [Au tomated message] 1840637684) The system [employer] generated this result transmit mary carmen reference range : <=5.0. The refe rence range was not u sed to interpret th is result as normal/abnormal . TRIG (test code = 139 mg/dL 30-170 1338275318) LDL CHOL (test code = 122 mg/dL See_Comment [Auto mated message] 41487-8) The system [employer] generated this result transmit mary carmen reference range : <=160. The refe rence range was not u sed to interpret th is result as normal/abnormal . VLDL (test code = 28 mg/dL 5-60 9948042813) Lab Interpretation (test Abnormal code = 15739-0) [facility] 05:05:53 Test Item Value Reference Range Interpretation Comments ALCOHOL (test code = 280 mg/dL 6480121537) JOEY (test code = JOEY) <10 Kdkxyjwt83-307 Toxic>100 Depression of [employer]>400 Fatalities Reported [facility] [id number] 04:12:13 Test Item Value Reference Range Interpretation Comments NT-proBNP (test code 441 pg/mL See_Comment H [Autom ated = 2272965531) message] The system which generated this result transmitted reference range : <=125. The reference range was not used to interpret this result as normal/abnormal . JOEY (test code = JOEY) Biotin has been reported to cause a negative bias, interpret results relative to patient's use of biotin. Lab Interpretation Abnormal (test code = 56668-6) [facility]OLIC PAN[facility] (16942)2022-02-10 03:56:30 Test Item Value Reference Range Interpretation Comments NA (test code = 137 mmol/L 135-145 4343974163) K (test code = 5.4 mmol/L 3.5-5.0 H 0549046004) CL (test code = 101 mmol/L 98-108 7988363651) CO2 TOTAL (test code = 25 mmol/L 23-31 5340210724) AGAP (test code = 2-16 7956787840) BUN (test code = 21 mg/dL 7-23 9458503500) GLUCOSE (test code = 120 mg/dL 70-110 H 1624987371) CREATININE (test code = 0.93 mg/dL 0.60-1.25 1081796026) TOTAL BILI (test code = 0.7 mg/dL 0.1-1.0 0317208731) CALCIUM (test code = 8.8 mg/dL 8.6-10.6 7372665741) T PROTEIN (test code = 7.5 g/dL 6.3-8.2 8639803461) ALBUMIN (test code = 4.2 g/dL 3.5-5.0 1563473930) ALK PHOS (test code = 86 U/L 34-122 7939633550) ALTv (test code = 75 U/L 5-50 H 1742-6) AST(SGOT) (test code = 93 U/L 13-40 H 5031328259) eGFR (test code = mL/min/1.73m2 8479344266) JOEY (test code = JOEY) Association of [...] tests). Lab Interpretation Abnormal (test code = 37356-3) [facility] 03:56:30 Test Item Value Reference Range Interpretation Comments LIPASE (test code = 1360491241) 335 U/L 0-220 H Lab Interpretation (test code = Abnormal 13547-0) [facility] WITH [id number] 03:40:28 Test Item Value Reference Range Interpretation Comments WBC (test code = See_Comment [Automated 4390-2) message] The sy stem which generated this result transmitted reference range : 4.20 - 10.70 10*3/?L. The reference range was not used to interpret this result as normal/abnormal . RBC (test code = See_Comment [Automated 789-8) message] The sy stem which generated this [...] RDW-SD (test code = 42.0 fL 38.5-51.6 68624-8) RDW-CV (test code = 13.1 % 12.1-15.4 788-0) PLT (test code = See_Comment [Automated 777-3) message] The sy stem which generated this result transmitted reference range : 150 - 328 10*3/ ?L. The reference r jose guadalupe was not used to interpret this result as normal/abnormal . MPV (test code = 8.4 fL 9.8-13.0 L 58030-6) NRBC/100 WBC (test See_Comment [Automat ed code = 0084355910) message] The system which generated this result transmitted reference range : 0.0 - 10.0 /100 WBCs. The refer ence range was not u sed to interpret th is result as normal/abnormal . NRBC x10^3 (test code <0.01 See_Comment [Auto mated = 5869976349) message] The s ystem which generated this result transmitted reference range : 10*3/?L. The reference range was not used to interpret this result as normal/abnormal . GRAN MAT (NEUT) % 60.6 % (test code = 770-8) IMM GRAN % (test code 0.50 % = 0921726805) LYMPH % (test code = 30.8 % 736-9) MONO % (test code = 6.0 % 5905-5) EOS % (test code = 1.3 % 713-8) BASO % (test code = 0.8 % 706-2) GRAN MAT x10^3(ANC) 5.09 10*3/uL 1.99-6.95 (test code = 6812376010) IMM GRAN x10^3 (test 0.04 10*3/uL 0.00-0.06 code = 8124031334) LYMPH x10^3 (test code 2.59 10*3/uL 1.09-3.23 = 731-0) MONO x10^3 (test code 0.50 10*3/uL 0.36-1.02 = 742-7) EOS x10^3 (test code = 0.11 10*3/uL 0.06-0.53 711-2) BASO x10^3 (test code 0.07 10*3/uL 0.01-0.09 = 704-7) Lab Interpretation Abnormal (test code = 95251-6) [facility] [id number] 09:37:00 Test Item Value Reference Range Interpretation Comments Glucose Lvl (test code = Glucose Lvl) 106 70-99 [facility]2020-10-04 09:37:00 Test Item Value Reference Range Interpretation Comments BUN (test code = BUN) 8 7-22 [facility]2020-10-04 09:37:00 Test Item Value Reference Range Interpretation Comments Creatinine Lvl (test code = Creatinine 0.65 0.50-1.40 Lvl) [facility]2020-10-04 09:37:00 Test Item Value Reference Range Interpretation Comments Sodium Lvl (test code = Sodium Lvl) 137 135-145 [facility]2020-10-04 09:37:00 Test Item Value Reference Range Interpretation Comments Potassium Lvl (test code = Potassium 3.1 3.5-5.1 Lvl) [place] [id number] 09:37:00 Test Item Value Reference Range Interpretation Comments Chloride Lvl (test code = Chloride Lvl) 102 95-109 [place] [id number] 09:37:00 Test Item Value Reference Range Interpretation Comments CO2 (test code = CO2) 26 24-32 [place] 177700-10-04 09:37:00 Test Item Value Reference Range Interpretation Comments Calcium Lvl (test code = Calcium Lvl) 8.2 8.5-10.5 [facility] [id number] 09:37:00 Test Item Value Reference Range Interpretation Comments Total Protein (test code = Total 6.4 6.4-8.4 Protein) [id number] 09:37:00 Test Item Value Reference Range Interpretation Comments Albumin Lvl (test code = Albumin Lvl) 2.3 3.5-5.0 [facility] [id number] 09:37:00 Test Item Value Reference Range Interpretation Comments ALT (test code = ALT) 76 See_Comment [Auto mated message] The system which ge nerated this result transmit mary carmen reference range : <=65. The reference range was not used to interpr et this result as casey l/abnormal. [facility] [id number] 09:37:00 Test Item Value Reference Range Interpretation Comments AST (test code = AST) 86 See_Comment [Auto mated message] The system which ge nerated this result transmit mary carmen reference range : <=37. The reference range was not used to interpr et this result as casey l/abnormal. [facility] [id number] 09:37:00 Test Item Value Reference Range Interpretation Comments Alk Phos (test code = Alk Phos) 85 39-136 [facility] [id number] 09:37:00 Test Item Value Reference Range Interpretation Comments Bili Total (test code = Bili Total) 0.8 0.2-1.3 [facility] [id number] 09:37:00 Test Item Value Reference Range Interpretation Comments AGAP (test code = AGAP) 12.1 10.0-20.0 [facility] [id number] 09:37:00 Test Item Value Reference Range Interpretation Comments B/C Ratio (test code = B/C Ratio) 12 1 6-25 [facility] [id number] 09:37:00 Test Item Value Reference Range Interpretation Comments Globulin (test code = Globulin) 4.1 2.7-4.2 [facility] [id number] 09:37:00 Test Item Value Reference Range Interpretation Comments A/G Ratio (test code = A/G Ratio) 0.6 1 0.7-1.6 [facility]2020-10-04 09:37:00 Test Item Value Reference Range Interpretation Comments eGFR (test code = eGFR) 131 [facility]GfldqawSCSYHCIXFM1165-74-75 09:37:00 Test Item Value Reference Range Interpretation Comments Segs (test code = Segs) 74.5 45.0-75.0 [facility] HospitalMzzrmebFKZPYDSKBZ1455-13-98 09:37:00 Test Item Value Reference Range Interpretation Comments Lymphocytes (test code = Lymphocytes) 12.0 20.0-40.0 [place] [address]-10-04 09:37:00 Test Item Value Reference Range Interpretation Comments Monocytes (test code = Monocytes) 11.7 2.0-12.0 [place] [address]-10-04 09:37:00 Test Item Value Reference Range Interpretation Comments Eosinophils (test code = 1.6 See_Comment [A utomated message] The Eosinophils) system which ge nerated this result tra nsmitted reference range : <=4.0. The reference r jose guadalupe was not used to int erpret this result as normal/abnormal . [place] [address]-10-04 09:37:00 Test Item Value Reference Range Interpretation Comments Basophils (test code = 0.2 See_Comment [Aut omated message] The Basophils) system which ge nerated this result tra nsmitted reference range : <=1.0. The reference r jose guadalupe was not used to int erpret this result as normal/abnormal . [facility] HospitalSdjkmjhQKKFOSDLBE3276-62-55 09:37:00 Test Item Value Reference Range Interpretation Comments Neutrophils # (test code = Neutrophils 9.7 1.5-8.1 #) [place] [address]-10-04 09:37:00 Test Item Value Reference Range Interpretation Comments Lymphocytes # (test code = Lymphocytes 1.6 1.0-5.5 #) [place] [address]-10-04 09:37:00 Test Item Value Reference Range Interpretation Comments Monocytes # (test code 1.5 See_Comment [Aut omated message] The = Monocytes #) system which generated this result tra nsmitted reference range : <=0.8. The reference r jose guadalupe was not used to int erpret this result as normal/abnormal . [place] [address]-10-04 09:37:00 Test Item Value Reference Range Interpretation Comments Eosinophils # (test code 0.2 See_Comment [A utomated message] The = Eosinophils #) system whic h generated this result tra nsmitted reference range : <=0.5. The reference r jose guadalupe was not used to int erpret this result as normal/abnormal . [facility] HospitalIuvsvwjMRQOGUPHRN6949-32-95 09:37:00 Test Item Value Reference Range Interpretation Comments WBC (test code = WBC) 13.0 3.7-10.4 [facility] HospitalJxekaxbHOJIYAGASV3715-25-11 09:37:00 Test Item Value Reference Range Interpretation Comments RBC (test code = RBC) 3.37 4.70-6.10 [facility] HospitalMnzjuysPUJOFXLVIV3242-87-26 09:37:00 Test Item Value Reference Range Interpretation Comments Hgb (test code = Hgb) 11.5 14.0-18.0 [facility] HospitalYojacuxFYLPFRJSXM0273-31-83 09:37:00 Test Item Value Reference Range Interpretation Comments Hct (test code = Hct) 33.6 42.0-54.0 [facility] HospitalKyjhpvhPIUCLIARPF2511-42-03 09:37:00 Test Item Value Reference Range Interpretation Comments MCV (test code = MCV) 99.7 80.0-94.0 [facility] HospitalBpzeduuOMJIIXOXZR9686-90-27 09:37:00 Test Item Value Reference Range Interpretation Comments MCH (test code = MCH) 34.2 pg 27.0-31.0 [facility] HospitalQyanbvdWVTMRHGHOV7037-48-52 09:37:00 Test Item Value Reference Range Interpretation Comments MCHC (test code = MCHC) 34.3 32.0-36.0 [facility] HospitalXliyvqnNBQKPCKKGH9624-17-81 09:37:00 Test Item Value Reference Range Interpretation Comments RDW (test code = RDW) 13.2 11.5-14.5 [facility] HospitalWbppalsHNRJTJITVP4924-51-94 09:37:00 Test Item Value Reference Range Interpretation Comments Platelet (test code = Platelet) 175 133-450 [facility] HospitalMxvhgccULDBRBMIYR9961-06-33 09:37:00 Test Item Value Reference Range Interpretation Comments MPV (test code = MPV) 7.2 7.4-10.4 [facility]2020-10-04 09:37:00 Test Item Value Reference Range Interpretation Comments Glucose Lvl (test code = Glucose Lvl) 106 70-99 [place] 177700-10-04 09:37:00 Test Item Value Reference Range Interpretation Comments BUN (test code = BUN) 8 7-22 [facility]2020-10-04 09:37:00 Test Item Value Reference Range Interpretation Comments Creatinine Lvl (test code = Creatinine 0.65 0.50-1.40 Lvl) [place] [address]-10-04 09:37:00 Test Item Value Reference Range Interpretation Comments Sodium Lvl (test code = Sodium Lvl) 137 135-145 [place] [address]-10-04 09:37:00 Test Item Value Reference Range Interpretation Comments Potassium Lvl (test code = Potassium 3.1 3.5-5.1 Lvl) [place] 177700-10-04 09:37:00 Test Item Value Reference Range Interpretation Comments Chloride Lvl (test code = Chloride Lvl) 102 95-109 [place] 177700-10-04 09:37:00 Test Item Value Reference Range Interpretation Comments CO2 (test code = CO2) 26 24-32 [place] [address]-10-04 09:37:00 Test Item Value Reference Range Interpretation Comments Calcium Lvl (test code = Calcium Lvl) 8.2 8.5-10.5 [facility]2020-10-04 09:37:00 Test Item Value Reference Range Interpretation Comments Total Protein (test code = Total 6.4 6.4-8.4 Protein) [place] 177700-10-04 09:37:00 Test Item Value Reference Range Interpretation Comments Albumin Lvl (test code = Albumin Lvl) 2.3 3.5-5.0 [place] [address]-10-04 09:37:00 Test Item Value Reference Range Interpretation Comments ALT (test code = ALT) 76 See_Comment [Auto mated message] The system which ge nerated this result transmit mary carmen reference range : <=65. The reference range was not used to interpr et this result as casey l/abnormal. [facility]2020-10-04 09:37:00 Test Item Value Reference Range Interpretation Comments AST (test code = AST) 86 See_Comment [Auto mated message] The system which ge nerated this result transmit mary carmen reference range : <=37. The reference range was not used to interpr et this result as casey l/abnormal. [facility] [id number] 09:37:00 Test Item Value Reference Range Interpretation Comments Alk Phos (test code = Alk Phos) 85 39-136 [facility] [id number] 09:37:00 Test Item Value Reference Range Interpretation Comments Bili Total (test code = Bili Total) 0.8 0.2-1.3 [facility]teryKEVIN [facility] [id number] 09:37:00 Test Item Value Reference Range Interpretation Comments AGAP (test code = AGAP) 12.1 10.0-20.0 [facility] [id number] 09:37:00 Test Item Value Reference Range Interpretation Comments B/C Ratio (test code = B/C Ratio) 12 1 6-25 [facility] [id number] 09:37:00 Test Item Value Reference Range Interpretation Comments Globulin (test code = Globulin) 4.1 2.7-4.2 [facility] [id number] 09:37:00 Test Item Value Reference Range Interpretation Comments A/G Ratio (test code = A/G Ratio) 0.6 1 0.7-1.6 [facility]KEV[facility] [id number] 09:37:00 Test Item Value Reference Range Interpretation Comments eGFR (test code = eGFR) 131 [place] [address]-10-04 09:37:00 Test Item Value Reference Range Interpretation Comments Segs (test code = Segs) 74.5 45.0-75.0 [facility] HospitalFdbscxuQRHWDIBCXE9304-49-48 09:37:00 Test Item Value Reference Range Interpretation Comments Lymphocytes (test code = Lymphocytes) 12.0 20.0-40.0 [facility] HospitalZnebvnzEQLXUKRRCI4444-75-90 09:37:00 Test Item Value Reference Range Interpretation Comments Monocytes (test code = Monocytes) 11.7 2.0-12.0 [facility] HospitalDnywnaqHTTQMEHPMI5780-32-81 09:37:00 Test Item Value Reference Range Interpretation Comments Eosinophils (test code = 1.6 See_Comment [A utomated message] The Eosinophils) system which ge nerated this result tra nsmitted reference range : <=4.0. The reference r jose guadalupe was not used to int erpret this result as normal/abnormal . [facility] HospitalLsddnqdCDWVFBCPRZ3663-48-59 09:37:00 Test Item Value Reference Range Interpretation Comments Basophils (test code = 0.2 See_Comment [Aut omated message] The Basophils) system which ge nerated this result tra nsmitted reference range : <=1.0. The reference r jose guadalupe was not used to int erpret this result as normal/abnormal . [facility] HospitalVhzmkljNBCVVDJMXO8431-23-92 09:37:00 Test Item Value Reference Range Interpretation Comments Neutrophils # (test code = Neutrophils 9.7 1.5-8.1 #) [facility] HospitalHlgkdoeNUJCGFKROL0164-74-05 09:37:00 Test Item Value Reference Range Interpretation Comments Lymphocytes # (test code = Lymphocytes 1.6 1.0-5.5 #) [facility] HospitalNqervexNOMLALODRH0645-08-24 09:37:00 Test Item Value Reference Range Interpretation Comments Monocytes # (test code 1.5 See_Comment [Aut omated message] The = Monocytes #) system which generated this result tra nsmitted reference range : <=0.8. The reference r jose guadalupe was not used to int erpret this result as normal/abnormal . [facility] HospitalZbzffahECRBFEKWAI6587-56-43 09:37:00 Test Item Value Reference Range Interpretation Comments Eosinophils # (test code 0.2 See_Comment [A utomated message] The = Eosinophils #) system whic h generated this result tra nsmitted reference range : <=0.5. The reference r jose guadalupe was not used to int erpret this result as normal/abnormal . [facility] HospitalJccbjxxNPHEZQCWDW9556-46-31 09:37:00 Test Item Value Reference Range Interpretation Comments WBC (test code = WBC) 13.0 3.7-10.4 [facility] HospitalErdoushPRCOEUTYHB3747-39-86 09:37:00 Test Item Value Reference Range Interpretation Comments RBC (test code = RBC) 3.37 4.70-6.10 [facility] HospitalPtwazpnZWJKADDZGH1286-94-47 09:37:00 Test Item Value Reference Range Interpretation Comments Hgb (test code = Hgb) 11.5 14.0-18.0 [place] 989810-10-04 09:37:00 Test Item Value Reference Range Interpretation Comments Hct (test code = Hct) 33.6 42.0-54.0 [place] [address]-10-04 09:37:00 Test Item Value Reference Range Interpretation Comments MCV (test code = MCV) 99.7 80.0-94.0 [place] [address]-10-04 09:37:00 Test Item Value Reference Range Interpretation Comments MCH (test code = MCH) 34.2 pg 27.0-31.0 [place] [address]-10-04 09:37:00 Test Item Value Reference Range Interpretation Comments MCHC (test code = MCHC) 34.3 32.0-36.0 [place] [address]-10-04 09:37:00 Test Item Value Reference Range Interpretation Comments RDW (test code = RDW) 13.2 11.5-14.5 [place] [address]-10-04 09:37:00 Test Item Value Reference Range Interpretation Comments Platelet (test code = Platelet) 175 133-450 [place] [address]-10-04 09:37:00 Test Item Value Reference Range Interpretation Comments MPV (test code = MPV) 7.2 7.4-10.4 [place] 177700-10-04 09:37:00 Test Item Value Reference Range Interpretation Comments Glucose Lvl (test code = Glucose Lvl) 106 70-99 [facility]2020-10-04 09:37:00 Test Item Value Reference Range Interpretation Comments BUN (test code = BUN) 8 7-22 [place] [address]-10-04 09:37:00 Test Item Value Reference Range Interpretation Comments Creatinine Lvl (test code = Creatinine 0.65 0.50-1.40 Lvl) [facility]2020-10-04 09:37:00 Test Item Value Reference Range Interpretation Comments Sodium Lvl (test code = Sodium Lvl) 137 135-145 [place] 177700-10-04 09:37:00 Test Item Value Reference Range Interpretation Comments Potassium Lvl (test code = Potassium 3.1 3.5-5.1 Lvl) [place] 177700-10-04 09:37:00 Test Item Value Reference Range Interpretation Comments Chloride Lvl (test code = Chloride Lvl) 102 95-109 [place] 177700-10-04 09:37:00 Test Item Value Reference Range Interpretation Comments CO2 (test code = CO2) 26 24-32 [facility] [id number] 09:37:00 Test Item Value Reference Range Interpretation Comments Calcium Lvl (test code = Calcium Lvl) 8.2 8.5-10.5 [facility]eshteryUNC [facility] [id number] 09:37:00 Test Item Value Reference Range Interpretation Comments Total Protein (test code = Total 6.4 6.4-8.4 Protein) [facility] [id number] 09:37:00 Test Item Value Reference Range Interpretation Comments Albumin Lvl (test code = Albumin Lvl) 2.3 3.5-5.0 [facility] [id number] 09:37:00 Test Item Value Reference Range Interpretation Comments ALT (test code = ALT) 76 See_Comment [Auto mated message] The system which ge nerated this result transmit mary carmen reference range : <=65. The reference range was not used to interpr et this result as casey l/abnormal. [facility] [id number] 09:37:00 Test Item Value Reference Range Interpretation Comments AST (test code = AST) 86 See_Comment [Auto mated message] The system which ge nerated this result transmit mary carmen reference range : <=37. The reference range was not used to interpr et this result as casey l/abnormal. [facility] [id number] 09:37:00 Test Item Value Reference Range Interpretation Comments Alk Phos (test code = Alk Phos) 85 39-136 [facility] [id number] 09:37:00 Test Item Value Reference Range Interpretation Comments Bili Total (test code = Bili Total) 0.8 0.2-1.3 [facility] [id number] 09:37:00 Test Item Value Reference Range Interpretation Comments AGAP (test code = AGAP) 12.1 10.0-20.0 [facility] [id number] 09:37:00 Test Item Value Reference Range Interpretation Comments B/C Ratio (test code = B/C Ratio) 12 1 6-25 [facility] [id number] 09:37:00 Test Item Value Reference Range Interpretation Comments Globulin (test code = Globulin) 4.1 2.7-4.2 [place] [address]7700-10-04 09:37:00 Test Item Value Reference Range Interpretation Comments A/G Ratio (test code = A/G Ratio) 0.6 1 0.7-1.6 [place] 177700-10-04 09:37:00 Test Item Value Reference Range Interpretation Comments eGFR (test code = eGFR) 131 [facility] HospitalYdmgnciWXAOWCNKFT6767-41-68 09:37:00 Test Item Value Reference Range Interpretation Comments Segs (test code = Segs) 74.5 45.0-75.0 [place] [address]-10-04 09:37:00 Test Item Value Reference Range Interpretation Comments Lymphocytes (test code = Lymphocytes) 12.0 20.0-40.0 [place] [address]-10-04 09:37:00 Test Item Value Reference Range Interpretation Comments Monocytes (test code = Monocytes) 11.7 2.0-12.0 [place] [address]-10-04 09:37:00 Test Item Value Reference Range Interpretation Comments Eosinophils (test code = 1.6 See_Comment [A utomated message] The Eosinophils) system which ge nerated this result tra nsmitted reference range : <=4.0. The reference r jose guadalupe was not used to int erpret this result as normal/abnormal . [place] [address]-10-04 09:37:00 Test Item Value Reference Range Interpretation Comments Basophils (test code = 0.2 See_Comment [Aut omated message] The Basophils) system which ge nerated this result tra nsmitted reference range : <=1.0. The reference r jose guadalupe was not used to int erpret this result as normal/abnormal . [facility] HospitalWbwrlrmHWRQNJTHMT3680-99-78 09:37:00 Test Item Value Reference Range Interpretation Comments Neutrophils # (test code = Neutrophils 9.7 1.5-8.1 #) [place] [address]-10-04 09:37:00 Test Item Value Reference Range Interpretation Comments Lymphocytes # (test code = Lymphocytes 1.6 1.0-5.5 #) [place] [address]-10-04 09:37:00 Test Item Value Reference Range Interpretation Comments Monocytes # (test code 1.5 See_Comment [Aut omated message] The = Monocytes #) system which generated this result tra nsmitted reference range : <=0.8. The reference r jose guadalupe was not used to int erpret this result as normal/abnormal . [facility] HospitalPwhnfytBQNZUONKKV3945-18-40 09:37:00 Test Item Value Reference Range Interpretation Comments Eosinophils # (test code 0.2 See_Comment [A utomated message] The = Eosinophils #) system whic h generated this result tra nsmitted reference range : <=0.5. The reference r jose guadalupe was not used to int erpret this result as normal/abnormal . [facility] HospitalUooqerjCKBBVOMKEF7350-66-76 09:37:00 Test Item Value Reference Range Interpretation Comments WBC (test code = WBC) 13.0 3.7-10.4 [facility] HospitalBdnymahISEGXMRZDU8484-05-83 09:37:00 Test Item Value Reference Range Interpretation Comments RBC (test code = RBC) 3.37 4.70-6.10 [facility] HospitalXwsmwsmQFDPDITVAP4103-92-66 09:37:00 Test Item Value Reference Range Interpretation Comments Hgb (test code = Hgb) 11.5 14.0-18.0 [place] 989810-10-04 09:37:00 Test Item Value Reference Range Interpretation Comments Hct (test code = Hct) 33.6 42.0-54.0 [facility] HospitalEuboypwCOTHJCWQRJ3031-78-88 09:37:00 Test Item Value Reference Range Interpretation Comments MCV (test code = MCV) 99.7 80.0-94.0 [facility] HospitalUmtuxgrAZCGKEWDWT4201-49-53 09:37:00 Test Item Value Reference Range Interpretation Comments MCH (test code = MCH) 34.2 pg 27.0-31.0 [facility] HospitalBpqstjuJHIHPNJSOT7451-13-77 09:37:00 Test Item Value Reference Range Interpretation Comments MCHC (test code = MCHC) 34.3 32.0-36.0 [facility] HospitalBpghbnpYLKUTNVWJB8456-35-99 09:37:00 Test Item Value Reference Range Interpretation Comments RDW (test code = RDW) 13.2 11.5-14.5 [facility] HospitalIxsdkpzXGSYVFCCXU2169-39-06 09:37:00 Test Item Value Reference Range Interpretation Comments Platelet (test code = Platelet) 175 133-450 [facility] HospitalGvpgvgbDCCKADSOCX9346-07-16 09:37:00 Test Item Value Reference Range Interpretation Comments MPV (test code = MPV) 7.2 7.4-10.4 [place] 177700-10-04 09:37:00 Test Item Value Reference Range Interpretation Comments Glucose Lvl (test code = Glucose Lvl) 106 70-99 [place] [address]-10-04 09:37:00 Test Item Value Reference Range Interpretation Comments BUN (test code = BUN) 8 7-22 [place] 177700-10-04 09:37:00 Test Item Value Reference Range Interpretation Comments Creatinine Lvl (test code = Creatinine 0.65 0.50-1.40 Lvl) [facility]2020-10-04 09:37:00 Test Item Value Reference Range Interpretation Comments Sodium Lvl (test code = Sodium Lvl) 137 135-145 [facility]2020-10-04 09:37:00 Test Item Value Reference Range Interpretation Comments Potassium Lvl (test code = Potassium 3.1 3.5-5.1 Lvl) [facility]2020-10-04 09:37:00 Test Item Value Reference Range Interpretation Comments Chloride Lvl (test code = Chloride Lvl) 102 95-109 [facility]2020-10-04 09:37:00 Test Item Value Reference Range Interpretation Comments CO2 (test code = CO2) 26 24-32 [place] 177700-10-04 09:37:00 Test Item Value Reference Range Interpretation Comments Calcium Lvl (test code = Calcium Lvl) 8.2 8.5-10.5 [place] 177700-10-04 09:37:00 Test Item Value Reference Range Interpretation Comments Total Protein (test code = Total 6.4 6.4-8.4 Protein) [place] 177700-10-04 09:37:00 Test Item Value Reference Range Interpretation Comments Albumin Lvl (test code = Albumin Lvl) 2.3 3.5-5.0 [place] 177700-10-04 09:37:00 Test Item Value Reference Range Interpretation Comments ALT (test code = ALT) 76 <=65 [place] [address]-10-04 09:37:00 Test Item Value Reference Range Interpretation Comments AST (test code = AST) 86 <=37 [place] [address]-10-04 09:37:00 Test Item Value Reference Range Interpretation Comments Alk Phos (test code = Alk Phos) 85 39-136 [facility]2020-10-04 09:37:00 Test Item Value Reference Range Interpretation Comments Bili Total (test code = Bili Total) 0.8 0.2-1.3 [facility]2020-10-04 09:37:00 Test Item Value Reference Range Interpretation Comments AGAP (test code = AGAP) 12.1 10.0-20.0 [place] 177700-10-04 09:37:00 Test Item Value Reference Range Interpretation Comments B/C Ratio (test code = B/C Ratio) 12 1 6-25 [place] 177700-10-04 09:37:00 Test Item Value Reference Range Interpretation Comments Globulin (test code = Globulin) 4.1 2.7-4.2 [facility]2020-10-04 09:37:00 Test Item Value Reference Range Interpretation Comments A/G Ratio (test code = A/G Ratio) 0.6 1 0.7-1.6 [place] [address]-10-04 09:37:00 Test Item Value Reference Range Interpretation Comments eGFR (test code = eGFR) 131 [facility] HospitalJkoggepCMMCIWBHJI1305-30-01 09:37:00 Test Item Value Reference Range Interpretation Comments Segs (test code = Segs) 74.5 45.0-75.0 [place] [address]-10-04 09:37:00 Test Item Value Reference Range Interpretation Comments Lymphocytes (test code = Lymphocytes) 12.0 20.0-40.0 [place] [address]-10-04 09:37:00 Test Item Value Reference Range Interpretation Comments Monocytes (test code = Monocytes) 11.7 2.0-12.0 [place] [address]-10-04 09:37:00 Test Item Value Reference Range Interpretation Comments Eosinophils (test code = Eosinophils) 1.6 <=4.0 [place] [address]-10-04 09:37:00 Test Item Value Reference Range Interpretation Comments Basophils (test code = Basophils) 0.2 <=1.0 [place] [address]-10-04 09:37:00 Test Item Value Reference Range Interpretation Comments Neutrophils # (test code = Neutrophils 9.7 1.5-8.1 #) [facility] HospitalUihepjtUINTLRWDKH8840-22-69 09:37:00 Test Item Value Reference Range Interpretation Comments Lymphocytes # (test code = Lymphocytes 1.6 1.0-5.5 #) [facility] HospitalJusgcnvPHZOTKTXWD9365-51-20 09:37:00 Test Item Value Reference Range Interpretation Comments Monocytes # (test code = Monocytes #) 1.5 <=0.8 [facility] HospitalEvmqulhNFWCYRXWDI6205-85-34 09:37:00 Test Item Value Reference Range Interpretation Comments Eosinophils # (test code = Eosinophils 0.2 <=0.5 #) [facility] HospitalXeoexagIZQATSTSFK2463-18-09 09:37:00 Test Item Value Reference Range Interpretation Comments WBC (test code = WBC) 13.0 3.7-10.4 [facility] HospitalWyvcbmlCXWDDJQJKR9380-81-96 09:37:00 Test Item Value Reference Range Interpretation Comments RBC (test code = RBC) 3.37 4.70-6.10 [facility] HospitalTwvhovrVXZWWPFWVE2557-85-35 09:37:00 Test Item Value Reference Range Interpretation Comments Hgb (test code = Hgb) 11.5 14.0-18.0 [facility] HospitalPmazkrjIPLRYJWVYL5414-99-46 09:37:00 Test Item Value Reference Range Interpretation Comments Hct (test code = Hct) 33.6 42.0-54.0 [facility] HospitalSaqlxxdQMFICUUEZE0035-77-43 09:37:00 Test Item Value Reference Range Interpretation Comments MCV (test code = MCV) 99.7 80.0-94.0 [facility] HospitalLbzrksnYIOAXJRGOD1619-64-48 09:37:00 Test Item Value Reference Range Interpretation Comments MCH (test code = MCH) 34.2 pg 27.0-31.0 [facility] HospitalVmehrzbBVCSYSBLUJ5365-92-98 09:37:00 Test Item Value Reference Range Interpretation Comments MCHC (test code = MCHC) 34.3 32.0-36.0 [facility] HospitalDuzbeouLJQQIZEMNK6046-80-82 09:37:00 Test Item Value Reference Range Interpretation Comments RDW (test code = RDW) 13.2 11.5-14.5 [facility] HospitalLqdjfdqTRRQKPMAYW5972-97-75 09:37:00 Test Item Value Reference Range Interpretation Comments Platelet (test code = Platelet) 175 133-450 [facility] HospitalNohhysvDGRFPJPQHE5057-97-63 09:37:00 Test Item Value Reference Range Interpretation Comments MPV (test code = MPV) 7.2 7.4-10.4 [place] [address]-10-03 09:35:00 Test Item Value Reference Range Interpretation Comments Glucose Lvl (test code = Glucose Lvl) 97 70-99 [place] [address]-10-03 09:35:00 Test Item Value Reference Range Interpretation Comments BUN (test code = BUN) 8 7-22 [place] [address]-10-03 09:35:00 Test Item Value Reference Range Interpretation Comments Creatinine Lvl (test code = Creatinine 0.64 0.50-1.40 Lvl) [place] [address]-10-03 09:35:00 Test Item Value Reference Range Interpretation Comments Sodium Lvl (test code = Sodium Lvl) 134 135-145 [place] [address]-10-03 09:35:00 Test Item Value Reference Range Interpretation Comments Potassium Lvl (test code = Potassium 3.4 3.5-5.1 Lvl) [place] [address]-10-03 09:35:00 Test Item Value Reference Range Interpretation Comments Chloride Lvl (test code = Chloride Lvl) 100 95-109 [place] [address]-10-03 09:35:00 Test Item Value Reference Range Interpretation Comments CO2 (test code = CO2) 25 24-32 [place] [address]-10-03 09:35:00 Test Item Value Reference Range Interpretation Comments Calcium Lvl (test code = Calcium Lvl) 7.9 8.5-10.5 [place] [address]-10-03 09:35:00 Test Item Value Reference Range Interpretation Comments Total Protein (test code = Total 6.7 6.4-8.4 Protein) [place] [address]-10-03 09:35:00 Test Item Value Reference Range Interpretation Comments Albumin Lvl (test code = Albumin Lvl) 2.5 3.5-5.0 [place] [address]-10-03 09:35:00 Test Item Value Reference Range Interpretation Comments ALT (test code = ALT) 61 See_Comment [Auto mated message] The system which ge nerated this result transmit mary carmen reference range : <=65. The reference range was not used to interpr et this result as casey l/abnormal. [facility] [id number] 09:35:00 Test Item Value Reference Range Interpretation Comments AST (test code = AST) 59 See_Comment [Auto mated message] The system which ge nerated this result transmit mary carmen reference range : <=37. The reference range was not used to interpr et this result as casey l/abnormal. [facility] [id number] 09:35:00 Test Item Value Reference Range Interpretation Comments Alk Phos (test code = Alk Phos) 81 39-136 [facility] [id number] 09:35:00 Test Item Value Reference Range Interpretation Comments Bili Total (test code = Bili Total) 1.0 0.2-1.3 [place] [address]-10-03 09:35:00 Test Item Value Reference Range Interpretation Comments AGAP (test code = AGAP) 12.4 10.0-20.0 [place] [address]-10-03 09:35:00 Test Item Value Reference Range Interpretation Comments B/C Ratio (test code = B/C Ratio) 12 1 6-25 [place] [address]-10-03 09:35:00 Test Item Value Reference Range Interpretation Comments Globulin (test code = Globulin) 4.2 2.7-4.2 [facility]2020-10-03 09:35:00 Test Item Value Reference Range Interpretation Comments A/G Ratio (test code = A/G Ratio) 0.6 1 0.7-1.6 [facility] [id number] 09:35:00 Test Item Value Reference Range Interpretation Comments eGFR (test code = eGFR) 132 [place] [address]-10-03 09:35:00 Test Item Value Reference Range Interpretation Comments WBC (test code = WBC) 13.6 3.7-10.4 [place] [address]-10-03 09:35:00 Test Item Value Reference Range Interpretation Comments RBC (test code = RBC) 3.46 4.70-6.10 [id number] 09:35:00 Test Item Value Reference Range Interpretation Comments Hgb (test code = Hgb) 12.1 14.0-18.0 [facility] HospitalItmufxiGPGGFYIHBO4504-86-95 09:35:00 Test Item Value Reference Range Interpretation Comments Hct (test code = Hct) 34.4 42.0-54.0 [place] 989810-10-03 09:35:00 Test Item Value Reference Range Interpretation Comments MCV (test code = MCV) 99.3 80.0-94.0 [id number] 09:35:00 Test Item Value Reference Range Interpretation Comments MCH (test code = MCH) 34.9 pg 27.0-31.0 [place] [address]-10-03 09:35:00 Test Item Value Reference Range Interpretation Comments MCHC (test code = MCHC) 35.1 32.0-36.0 [facility] HospitalOjwykziICONXEKZUW5601-84-87 09:35:00 Test Item Value Reference Range Interpretation Comments RDW (test code = RDW) 12.9 11.5-14.5 [facility] H[id number] 09:35:00 Test Item Value Reference Range Interpretation Comments Platelet (test code = Platelet) 143 133-450 [facility] HospitalWyqcitmSYTOPWGFDE1770-78-77 09:35:00 Test Item Value Reference Range Interpretation Comments MPV (test code = MPV) 7.4 7.4-10.4 [place] [address]-10-03 09:35:00 Test Item Value Reference Range Interpretation Comments Segs (test code = Segs) 81.3 45.0-75.0 [facility] HospitalRuctxgwKUXJSSSDPN6537-73-41 09:35:00 Test Item Value Reference Range Interpretation Comments Lymphocytes (test code = Lymphocytes) 8.6 20.0-40.0 [place] [address]-10-03 09:35:00 Test Item Value Reference Range Interpretation Comments Monocytes (test code = Monocytes) 9.7 2.0-12.0 [place] [address]-10-03 09:35:00 Test Item Value Reference Range Interpretation Comments Eosinophils (test code = 0.2 See_Comment [A utomated message] The Eosinophils) system which ge nerated this result tra nsmitted reference range : <=4.0. The reference r jose guadalupe was not used to int erpret this result as normal/abnormal . [facility] [id number] 09:35:00 Test Item Value Reference Range Interpretation Comments Basophils (test code = 0.2 See_Comment [Aut omated message] The Basophils) system which ge nerated this result tra nsmitted reference range : <=1.0. The reference r jose guadalupe was not used to int erpret this result as normal/abnormal . [place] 989810-10-03 09:35:00 Test Item Value Reference Range Interpretation Comments Neutrophils # (test code = Neutrophils 11.1 1.5-8.1 #) [place] 989810-10-03 09:35:00 Test Item Value Reference Range Interpretation Comments Lymphocytes # (test code = Lymphocytes 1.2 1.0-5.5 #) [place] [address]-10-03 09:35:00 Test Item Value Reference Range Interpretation Comments Monocytes # (test code 1.3 See_Comment [Aut omated message] The = Monocytes #) system which generated this result tra nsmitted reference range : <=0.8. The reference r jose guadalupe was not used to int erpret this result as normal/abnormal . [facility] [id number] 09:35:00 Test Item Value Reference Range Interpretation Comments Glucose Lvl (test code = Glucose Lvl) 97 70-99 [facility] [id number] 09:35:00 Test Item Value Reference Range Interpretation Comments BUN (test code = BUN) 8 7-22 [facility] [id number] 09:35:00 Test Item Value Reference Range Interpretation Comments Creatinine Lvl (test code = Creatinine 0.64 0.50-1.40 Lvl) [place] 177700-10-03 09:35:00 Test Item Value Reference Range Interpretation Comments Sodium Lvl (test code = Sodium Lvl) 134 135-145 [facility] [id number] 09:35:00 Test Item Value Reference Range Interpretation Comments Potassium Lvl (test code = Potassium 3.4 3.5-5.1 Lvl) [place] 177700-10-03 09:35:00 Test Item Value Reference Range Interpretation Comments Chloride Lvl (test code = Chloride Lvl) 100 95-109 [place] [address]-10-03 09:35:00 Test Item Value Reference Range Interpretation Comments CO2 (test code = CO2) 25 24-32 [facility] [id number] 09:35:00 Test Item Value Reference Range Interpretation Comments Calcium Lvl (test code = Calcium Lvl) 7.9 8.5-10.5 [facility] [id number] 09:35:00 Test Item Value Reference Range Interpretation Comments Total Protein (test code = Total 6.7 6.4-8.4 Protein) [facility] [id number] 09:35:00 Test Item Value Reference Range Interpretation Comments Albumin Lvl (test code = Albumin Lvl) 2.5 3.5-5.0 [facility] [id number] 09:35:00 Test Item Value Reference Range Interpretation Comments ALT (test code = ALT) 61 See_Comment [Auto mated message] The system which ge nerated this result transmit mary carmen reference range : <=65. The reference range was not used to interpr et this result as casey l/abnormal. [facility] [id number] 09:35:00 Test Item Value Reference Range Interpretation Comments AST (test code = AST) 59 See_Comment [Auto mated message] The system which ge nerated this result transmit mary carmen reference range : <=37. The reference range was not used to interpr et this result as casey l/abnormal. [facility] [id number] 09:35:00 Test Item Value Reference Range Interpretation Comments Alk Phos (test code = Alk Phos) 81 39-136 [facility] [id number] 09:35:00 Test Item Value Reference Range Interpretation Comments Bili Total (test code = Bili Total) 1.0 0.2-1.3 [facility] [id number] 09:35:00 Test Item Value Reference Range Interpretation Comments AGAP (test code = AGAP) 12.4 10.0-20.0 [facility] [id number] 09:35:00 Test Item Value Reference Range Interpretation Comments B/C Ratio (test code = B/C Ratio) 12 1 6-25 [facility] [id number] 09:35:00 Test Item Value Reference Range Interpretation Comments Globulin (test code = Globulin) 4.2 2.7-4.2 [facility] [id number] 09:35:00 Test Item Value Reference Range Interpretation Comments A/G Ratio (test code = A/G Ratio) 0.6 1 0.7-1.6 [facility]2020-10-03 09:35:00 Test Item Value Reference Range Interpretation Comments eGFR (test code = eGFR) 132 [facility] Hospit[id number] 09:35:00 Test Item Value Reference Range Interpretation Comments WBC (test code = WBC) 13.6 3.7-10.4 [facility]DegwdclUGEYZTAHXB2709-26-64 09:35:00 Test Item Value Reference Range Interpretation Comments RBC (test code = RBC) 3.46 4.70-6.10 [facility] HospitalPoliiztEXZTPYWIKM4717-37-15 09:35:00 Test Item Value Reference Range Interpretation Comments Hgb (test code = Hgb) 12.1 14.0-18.0 [place] [address]-10-03 09:35:00 Test Item Value Reference Range Interpretation Comments Hct (test code = Hct) 34.4 42.0-54.0 [facility] HospitalXeizjcjUETNUUZRFF7321-65-90 09:35:00 Test Item Value Reference Range Interpretation Comments MCV (test code = MCV) 99.3 80.0-94.0 [facility] HospitalCmpvqucTSMSKHZDOO5347-72-37 09:35:00 Test Item Value Reference Range Interpretation Comments MCH (test code = MCH) 34.9 pg 27.0-31.0 [facility] HospitalEwjzijhIJTCTZHLGF5478-14-81 09:35:00 Test Item Value Reference Range Interpretation Comments MCHC (test code = MCHC) 35.1 32.0-36.0 [facility] HospitalWtilvsxMCFATVEVSI9097-51-78 09:35:00 Test Item Value Reference Range Interpretation Comments RDW (test code = RDW) 12.9 11.5-14.5 [place] [address]-10-03 09:35:00 Test Item Value Reference Range Interpretation Comments Platelet (test code = Platelet) 143 133-450 [facility] HospitalWoucerdWAIVWQALFA4253-05-53 09:35:00 Test Item Value Reference Range Interpretation Comments MPV (test code = MPV) 7.4 7.4-10.4 [facility] HospitalHeppcfcCTKBKHPCGV5209-06-77 09:35:00 Test Item Value Reference Range Interpretation Comments Segs (test code = Segs) 81.3 45.0-75.0 [place] [address]-10-03 09:35:00 Test Item Value Reference Range Interpretation Comments Lymphocytes (test code = Lymphocytes) 8.6 20.0-40.0 [place] [address]-10-03 09:35:00 Test Item Value Reference Range Interpretation Comments Monocytes (test code = Monocytes) 9.7 2.0-12.0 [place] [address]-10-03 09:35:00 Test Item Value Reference Range Interpretation Comments Eosinophils (test code = 0.2 See_Comment [A utomated message] The Eosinophils) system which ge nerated this result tra nsmitted reference range : <=4.0. The reference r jose guadalupe was not used to int erpret this result as normal/abnormal . [place] [address]-10-03 09:35:00 Test Item Value Reference Range Interpretation Comments Basophils (test code = 0.2 See_Comment [Aut omated message] The Basophils) system which ge nerated this result tra nsmitted reference range : <=1.0. The reference r jose guadalupe was not used to int erpret this result as normal/abnormal . [place] [address]-10-03 09:35:00 Test Item Value Reference Range Interpretation Comments Neutrophils # (test code = Neutrophils 11.1 1.5-8.1 #) [place] [address]-10-03 09:35:00 Test Item Value Reference Range Interpretation Comments Lymphocytes # (test code = Lymphocytes 1.2 1.0-5.5 #) [place] [address]-10-03 09:35:00 Test Item Value Reference Range Interpretation Comments Monocytes # (test code 1.3 See_Comment [Aut omated message] The = Monocytes #) system which generated this result tra nsmitted reference range : <=0.8. The reference r jose guadalupe was not used to int erpret this result as normal/abnormal . [place] 177700-10-03 09:35:00 Test Item Value Reference Range Interpretation Comments Glucose Lvl (test code = Glucose Lvl) 97 70-99 [place] 177700-10-03 09:35:00 Test Item Value Reference Range Interpretation Comments BUN (test code = BUN) 8 7-22 [place] [address]-10-03 09:35:00 Test Item Value Reference Range Interpretation Comments Creatinine Lvl (test code = Creatinine 0.64 0.50-1.40 Lvl) [facility]2020-10-03 09:35:00 Test Item Value Reference Range Interpretation Comments Sodium Lvl (test code = Sodium Lvl) 134 135-145 [place] 177700-10-03 09:35:00 Test Item Value Reference Range Interpretation Comments Potassium Lvl (test code = Potassium 3.4 3.5-5.1 Lvl) [facility] [id number] 09:35:00 Test Item Value Reference Range Interpretation Comments Chloride Lvl (test code = Chloride Lvl) 100 95-109 [facility] [id number] 09:35:00 Test Item Value Reference Range Interpretation Comments CO2 (test code = CO2) 25 24-32 [facility] [id number] 09:35:00 Test Item Value Reference Range Interpretation Comments Calcium Lvl (test code = Calcium Lvl) 7.9 8.5-10.5 [facility] [id number] 09:35:00 Test Item Value Reference Range Interpretation Comments Total Protein (test code = Total 6.7 6.4-8.4 Protein) [facility] [id number] 09:35:00 Test Item Value Reference Range Interpretation Comments Albumin Lvl (test code = Albumin Lvl) 2.5 3.5-5.0 [facility] [id number] 09:35:00 Test Item Value Reference Range Interpretation Comments ALT (test code = ALT) 61 See_Comment [Auto mated message] The system which [employer] nerated this result transmit mary carmen reference range : <=65. The reference range was not used to interpr et this result as casey l/abnormal. [facility] [id number] 09:35:00 Test Item Value Reference Range Interpretation Comments AST (test code = AST) 59 See_Comment [Auto mated message] The system which [employer] nerated this result transmit mary carmen reference range : <=37. The reference range was not used to interpr et this result as casey l/abnormal. [facility] [id number] 09:35:00 Test Item Value Reference Range Interpretation Comments Alk Phos (test code = Alk Phos) 81 39-136 [place] 177700-10-03 09:35:00 Test Item Value Reference Range Interpretation Comments Bili Total (test code = Bili Total) 1.0 0.2-1.3 [place] 177700-10-03 09:35:00 Test Item Value Reference Range Interpretation Comments AGAP (test code = AGAP) 12.4 10.0-20.0 [place] [address]-10-03 09:35:00 Test Item Value Reference Range Interpretation Comments B/C Ratio (test code = B/C Ratio) 12 1 6-25 [place] [address]-10-03 09:35:00 Test Item Value Reference Range Interpretation Comments Globulin (test code = Globulin) 4.2 2.7-4.2 [place] 177700-10-03 09:35:00 Test Item Value Reference Range Interpretation Comments A/G Ratio (test code = A/G Ratio) 0.6 1 0.7-1.6 [place] [address]-10-03 09:35:00 Test Item Value Reference Range Interpretation Comments eGFR (test code = eGFR) 132 [facility] HospitalBcfalrlVSSNRTETZV1347-73-20 09:35:00 Test Item Value Reference Range Interpretation Comments WBC (test code = WBC) 13.6 3.7-10.4 [place] [address]-10-03 09:35:00 Test Item Value Reference Range Interpretation Comments RBC (test code = RBC) 3.46 4.70-6.10 [place] [address]-10-03 09:35:00 Test Item Value Reference Range Interpretation Comments Hgb (test code = Hgb) 12.1 14.0-18.0 [place] [address]-10-03 09:35:00 Test Item Value Reference Range Interpretation Comments Hct (test code = Hct) 34.4 42.0-54.0 [place] [address]-10-03 09:35:00 Test Item Value Reference Range Interpretation Comments MCV (test code = MCV) 99.3 80.0-94.0 [place] [address]-10-03 09:35:00 Test Item Value Reference Range Interpretation Comments MCH (test code = MCH) 34.9 pg 27.0-31.0 [place] [address]-10-03 09:35:00 Test Item Value Reference Range Interpretation Comments MCHC (test code = MCHC) 35.1 32.0-36.0 [facility] HospitalIkqtcmiNKKJPVSCOS4081-66-56 09:35:00 Test Item Value Reference Range Interpretation Comments RDW (test code = RDW) 12.9 11.5-14.5 [place] 989810-10-03 09:35:00 Test Item Value Reference Range Interpretation Comments Platelet (test code = Platelet) 143 133-450 [facility] HospitalUllouzdULLDFPGLYK6739-83-70 09:35:00 Test Item Value Reference Range Interpretation Comments MPV (test code = MPV) 7.4 7.4-10.4 [facility] HospitalZdirstdTILYTCABPA9817-80-83 09:35:00 Test Item Value Reference Range Interpretation Comments Segs (test code = Segs) 81.3 45.0-75.0 [place] 989810-10-03 09:35:00 Test Item Value Reference Range Interpretation Comments Lymphocytes (test code = Lymphocytes) 8.6 20.0-40.0 [facility] HospitalFntfuqfKYBJQHQXRC4696-14-74 09:35:00 Test Item Value Reference Range Interpretation Comments Monocytes (test code = Monocytes) 9.7 2.0-12.0 [facility] HospitalVwglitgRMYWAQZLHG6768-40-99 09:35:00 Test Item Value Reference Range Interpretation Comments Eosinophils (test code = 0.2 See_Comment [A utomated message] The Eosinophils) system which ge nerated this result tra nsmitted reference range : <=4.0. The reference r jose guadalupe was not used to int erpret this result as normal/abnormal . [facility] HospitalEnntcdrCQZVSOEJRI1632-94-51 09:35:00 Test Item Value Reference Range Interpretation Comments Basophils (test code = 0.2 See_Comment [Aut omated message] The Basophils) system which ge nerated this result tra nsmitted reference range : <=1.0. The reference r jose guadalupe was not used to int erpret this result as normal/abnormal . [facility] HospitalIdiwndcUFSWDLUHSE7399-78-80 09:35:00 Test Item Value Reference Range Interpretation Comments Neutrophils # (test code = Neutrophils 11.1 1.5-8.1 #) [facility] HospitalNdhhzieYURWMPPKQZ5245-09-11 09:35:00 Test Item Value Reference Range Interpretation Comments Lymphocytes # (test code = Lymphocytes 1.2 1.0-5.5 #) [facility] HospitalKnekjqzEGHLXPCSBR1129-51-04 09:35:00 Test Item Value Reference Range Interpretation Comments Monocytes # (test code 1.3 See_Comment [Aut omated message] The = Monocytes #) system which generated this result tra nsmitted reference range : <=0.8. The reference r jose guadalupe was not used to int erpret this result as normal/abnormal . [place] 177700-10-03 09:35:00 Test Item Value Reference Range Interpretation Comments BUN (test code = BUN) 8 7-22 [place] [address]-10-03 09:35:00 Test Item Value Reference Range Interpretation Comments Creatinine Lvl (test code = Creatinine 0.64 0.50-1.40 Lvl) [place] [address]-10-03 09:35:00 Test Item Value Reference Range Interpretation Comments Sodium Lvl (test code = Sodium Lvl) 134 135-145 [place] 177700-10-03 09:35:00 Test Item Value Reference Range Interpretation Comments Potassium Lvl (test code = Potassium 3.4 3.5-5.1 Lvl) [place] [address]-10-03 09:35:00 Test Item Value Reference Range Interpretation Comments Chloride Lvl (test code = Chloride Lvl) 100 95-109 [place] 177700-10-03 09:35:00 Test Item Value Reference Range Interpretation Comments CO2 (test code = CO2) 25 24-32 [place] [address]-10-03 09:35:00 Test Item Value Reference Range Interpretation Comments Calcium Lvl (test code = Calcium Lvl) 7.9 8.5-10.5 [place] [address]-10-03 09:35:00 Test Item Value Reference Range Interpretation Comments Total Protein (test code = Total 6.7 6.4-8.4 Protein) [place] 177700-10-03 09:35:00 Test Item Value Reference Range Interpretation Comments Albumin Lvl (test code = Albumin Lvl) 2.5 3.5-5.0 [place] [address]-10-03 09:35:00 Test Item Value Reference Range Interpretation Comments ALT (test code = ALT) 61 <=65 [place] [address]-10-03 09:35:00 Test Item Value Reference Range Interpretation Comments AST (test code = AST) 59 <=37 [facility] [id number] 09:35:00 Test Item Value Reference Range Interpretation Comments Alk Phos (test code = Alk Phos) 81 39-136 [facility] [id number] 09:35:00 Test Item Value Reference Range Interpretation Comments Bili Total (test code = Bili Total) 1.0 0.2-1.3 [facility] [id number] 09:35:00 Test Item Value Reference Range Interpretation Comments AGAP (test code = AGAP) 12.4 10.0-20.0 [facility] [id number] 09:35:00 Test Item Value Reference Range Interpretation Comments B/C Ratio (test code = B/C Ratio) 12 1 6-25 [facility] [id number] 09:35:00 Test Item Value Reference Range Interpretation Comments Globulin (test code = Globulin) 4.2 2.7-4.2 [facility] [id number] 09:35:00 Test Item Value Reference Range Interpretation Comments A/G Ratio (test code = A/G Ratio) 0.6 1 0.7-1.6 [facility] [id number] 09:35:00 Test Item Value Reference Range Interpretation Comments eGFR (test code = eGFR) 132 [facility] HospitalKqvcqpjEURQFCXRRE3525-62-99 09:35:00 Test Item Value Reference Range Interpretation Comments WBC (test code = WBC) 13.6 3.7-10.4 [facility] HospitalGlcxrzgXETJOHAYGL8253-94-05 09:35:00 Test Item Value Reference Range Interpretation Comments RBC (test code = RBC) 3.46 4.70-6.10 [facility] HospitalMeucybtKGJEXCCHWG3249-18-35 09:35:00 Test Item Value Reference Range Interpretation Comments Hgb (test code = Hgb) 12.1 14.0-18.0 [facility] HospitalBvupkntQZTGEMPSQE5382-11-93 09:35:00 Test Item Value Reference Range Interpretation Comments Hct (test code = Hct) 34.4 42.0-54.0 [facility] HospitalOwmgglmAYQTZTBJJJ3136-90-61 09:35:00 Test Item Value Reference Range Interpretation Comments MCV (test code = MCV) 99.3 80.0-94.0 [facility] HospitalQglimgrTRGVPPZSYU7052-16-53 09:35:00 Test Item Value Reference Range Interpretation Comments MCH (test code = MCH) 34.9 pg 27.0-31.0 [facility] HospitalAwgxzmyCVAPHBPJAP4139-98-44 09:35:00 Test Item Value Reference Range Interpretation Comments MCHC (test code = MCHC) 35.1 32.0-36.0 [facility] HospitalVrmstisTTENUTRPOR8666-86-27 09:35:00 Test Item Value Reference Range Interpretation Comments RDW (test code = RDW) 12.9 11.5-14.5 [facility] HospitalKrearmpQEVCQCBTYL0394-01-48 09:35:00 Test Item Value Reference Range Interpretation Comments Platelet (test code = Platelet) 143 133-450 [facility] HospitalPuqhmnlBDFTAVCDLL8988-42-95 09:35:00 Test Item Value Reference Range Interpretation Comments MPV (test code = MPV) 7.4 7.4-10.4 [facility] HospitalKfdbvgqUHOCGTGRLK9385-10-64 09:35:00 Test Item Value Reference Range Interpretation Comments Segs (test code = Segs) 81.3 45.0-75.0 [facility] HospitalLgfzalvRXWTFSFIMW1328-20-25 09:35:00 Test Item Value Reference Range Interpretation Comments Lymphocytes (test code = Lymphocytes) 8.6 20.0-40.0 [facility] HospitalDbgxgalGAPXDFPDRM3483-43-50 09:35:00 Test Item Value Reference Range Interpretation Comments Monocytes (test code = Monocytes) 9.7 2.0-12.0 [facility] HospitalMwlqpmuSPDARBKLRK7095-86-14 09:35:00 Test Item Value Reference Range Interpretation Comments Eosinophils (test code = Eosinophils) 0.2 <=4.0 [facility] HospitalTyhrdddMIZYQVBBHI7626-72-40 09:35:00 Test Item Value Reference Range Interpretation Comments Basophils (test code = Basophils) 0.2 <=1.0 [facility] HospitalJxpcxbnFXRKUGQPOH3209-32-62 09:35:00 Test Item Value Reference Range Interpretation Comments Neutrophils # (test code = Neutrophils 11.1 1.5-8.1 #) [facility] HospitalIfxctokUJPUWUYEDK0612-24-75 09:35:00 Test Item Value Reference Range Interpretation Comments Lymphocytes # (test code = Lymphocytes 1.2 1.0-5.5 #) [facility] HospitalAoionjrBXUYXRISWJ6855-16-04 09:35:00 Test Item Value Reference Range Interpretation Comments Monocytes # (test code = Monocytes #) 1.3 <=0.8 [place] 177700-10-03 09:35:00 Test Item Value Reference Range Interpretation Comments Glucose Lvl (test code = Glucose Lvl) 97 70-99 [place] 177700-10-02 09:44:00 Test Item Value Reference Range Interpretation Comments Glucose Lvl (test code = Glucose Lvl) 122 70-99 [place] 177700-10-02 09:44:00 Test Item Value Reference Range Interpretation Comments BUN (test code = BUN) 11 7-22 [place] 177700-10-02 09:44:00 Test Item Value Reference Range Interpretation Comments Creatinine Lvl (test code = Creatinine 0.80 0.50-1.40 Lvl) [place] 177700-10-02 09:44:00 Test Item Value Reference Range Interpretation Comments Sodium Lvl (test code = Sodium Lvl) 137 135-145 [place] 177700-10-02 09:44:00 Test Item Value Reference Range Interpretation Comments Potassium Lvl (test code = Potassium 3.4 3.5-5.1 Lvl) [place] 177700-10-02 09:44:00 Test Item Value Reference Range Interpretation Comments Chloride Lvl (test code = Chloride Lvl) 103 95-109 [place] 177700-10-02 09:44:00 Test Item Value Reference Range Interpretation Comments CO2 (test code = CO2) 24 24-32 [place] 177700-10-02 09:44:00 Test Item Value Reference Range Interpretation Comments Calcium Lvl (test code = Calcium Lvl) 8.0 8.5-10.5 [place] 177700-10-02 09:44:00 Test Item Value Reference Range Interpretation Comments Total Protein (test code = Total 6.5 6.4-8.4 Protein) [facility]2020-10-02 09:44:00 Test Item Value Reference Range Interpretation Comments Albumin Lvl (test code = Albumin Lvl) 2.7 3.5-5.0 [place] 177700-10-02 09:44:00 Test Item Value Reference Range Interpretation Comments ALT (test code = ALT) 76 See_Comment [Auto mated message] The system which ge nerated this result transmit mary carmen reference range : <=65. The reference range was not used to interpr et this result as casey l/abnormal. [facility] [id number] 09:44:00 Test Item Value Reference Range Interpretation Comments AST (test code = AST) 68 See_Comment [Auto mated message] The system which ge nerated this result transmit mary carmen reference range : <=37. The reference range was not used to interpr et this result as casey l/abnormal. [facility] [id number] 09:44:00 Test Item Value Reference Range Interpretation Comments Alk Phos (test code = Alk Phos) 68 39-136 [facility] [id number] 09:44:00 Test Item Value Reference Range Interpretation Comments Bili Total (test code = Bili Total) 1.2 0.2-1.3 [facility] [id number] 09:44:00 Test Item Value Reference Range Interpretation Comments AGAP (test code = AGAP) 13.4 10.0-20.0 [facility] [id number] 09:44:00 Test Item Value Reference Range Interpretation Comments B/C Ratio (test code = B/C Ratio) 14 1 6-25 [facility] [id number] 09:44:00 Test Item Value Reference Range Interpretation Comments Globulin (test code = Globulin) 3.8 2.7-4.2 [facility] [id number] 09:44:00 Test Item Value Reference Range Interpretation Comments A/G Ratio (test code = A/G Ratio) 0.7 1 0.7-1.6 [facility] [id number] 09:44:00 Test Item Value Reference Range Interpretation Comments eGFR (test code = eGFR) 120 [facility] HyyeykbOADQOOPHHF0884-04-60 09:44:00 Test Item Value Reference Range Interpretation Comments Segs (test code = Segs) 87.2 45.0-75.0 [facility] ZnlyvejJQDCBMGPXI9353-69-15 09:44:00 Test Item Value Reference Range Interpretation Comments Lymphocytes (test code = Lymphocytes) 4.9 20.0-40.0 [facility] XtqndjlTCJNPSXWKS7236-06-52 09:44:00 Test Item Value Reference Range Interpretation Comments Monocytes (test code = Monocytes) 7.7 2.0-12.0 [facility]hzxxdGAVACNQERJ1639-[facility] 09:44:00 Test Item Value Reference Range Interpretation Comments Basophils (test code = 0.2 See_Comment [Aut omated message] The Basophils) system which ge nerated this result tra nsmitted reference range : <=1.0. The reference r jose guadalupe was not used to int erpret this result as normal/abnormal . [facility]XbozglcJOHMAHTXBV1877-13-06 09:44:00 Test Item Value Reference Range Interpretation Comments Neutrophils # (test code = Neutrophils 16.2 1.5-8.1 #) [facility]OyignpnLFUCTEAAPQ4628-07-85 09:44:00 Test Item Value Reference Range Interpretation Comments Lymphocytes # (test code = Lymphocytes 0.9 1.0-5.5 #) [facility] HospitalDcvfrbgEZSMTKBDAO1261-99-98 09:44:00 Test Item Value Reference Range Interpretation Comments Monocytes # (test code 1.4 See_Comment [Aut omated message] The = Monocytes #) system which generated this result tra nsmitted reference range : <=0.8. The reference r jose guadalupe was not used to int erpret this result as normal/abnormal . [facility] HospitalBxolsgmNEWBVJCHHM0430-93-74 09:44:00 Test Item Value Reference Range Interpretation Comments WBC (test code = WBC) 18.6 3.7-10.4 [facility] HospitalObokycnMOUYDBDUXZ0648-96-74 09:44:00 Test Item Value Reference Range Interpretation Comments RBC (test code = RBC) 3.91 4.70-6.10 [facility] HospitalSvgdfpzGHWYTVUBOW0854-37-32 09:44:00 Test Item Value Reference Range Interpretation Comments Hgb (test code = Hgb) 13.5 14.0-18.0 [place] [address]-10-02 09:44:00 Test Item Value Reference Range Interpretation Comments Hct (test code = Hct) 38.7 42.0-54.0 [facility] HospitalMvzqpsjRTBAFRNLJE1419-59-57 09:44:00 Test Item Value Reference Range Interpretation Comments MCV (test code = MCV) 99.0 80.0-94.0 [place] 989810-10-02 09:44:00 Test Item Value Reference Range Interpretation Comments MCH (test code = MCH) 34.5 pg 27.0-31.0 [facility]IgctiifUBFYIYNVPY5846-22-68 09:44:00 Test Item Value Reference Range Interpretation Comments MCHC (test code = MCHC) 34.9 32.0-36.0 [facility] HospitalJjnzictLZWKCSWRXK8762-95-92 09:44:00 Test Item Value Reference Range Interpretation Comments RDW (test code = RDW) 13.5 11.5-14.5 [facility] HospitalSezwqtkYCNIEIZQBH8077-62-19 09:44:00 Test Item Value Reference Range Interpretation Comments Platelet (test code = Platelet) 155 133-450 [facility] HospitalPpugckdTLUPMAODCW8828-77-34 09:44:00 Test Item Value Reference Range Interpretation Comments MPV (test code = MPV) 7.5 7.4-10.4 [facility]ymhnjeAAEAVV2191-60-72 09:44:00 Test Item Value Reference Range Interpretation Comments Trig (test code = Trig) 320 [facility]2020-10-02 09:44:00 Test Item Value Reference Range Interpretation Comments Glucose Lvl (test code = Glucose Lvl) 122 70-99 [facility]2020-10-02 09:44:00 Test Item Value Reference Range Interpretation Comments BUN (test code = BUN) 11 7-22 [facility]2020-10-02 09:44:00 Test Item Value Reference Range Interpretation Comments Creatinine Lvl (test code = Creatinine 0.80 0.50-1.40 Lvl) [facility]2020-10-02 09:44:00 Test Item Value Reference Range Interpretation Comments Sodium Lvl (test code = Sodium Lvl) 137 135-145 [place] 177700-10-02 09:44:00 Test Item Value Reference Range Interpretation Comments Potassium Lvl (test code = Potassium 3.4 3.5-5.1 Lvl) [facility]2020-10-02 09:44:00 Test Item Value Reference Range Interpretation Comments Chloride Lvl (test code = Chloride Lvl) 103 95-109 [place] 177700-10-02 09:44:00 Test Item Value Reference Range Interpretation Comments CO2 (test code = CO2) 24 24-32 [facility]2020-10-02 09:44:00 Test Item Value Reference Range Interpretation Comments Calcium Lvl (test code = Calcium Lvl) 8.0 8.5-10.5 [facility] [id number] 09:44:00 Test Item Value Reference Range Interpretation Comments Total Protein (test code = Total 6.5 6.4-8.4 Protein) [facility] [id number] 09:44:00 Test Item Value Reference Range Interpretation Comments Albumin Lvl (test code = Albumin Lvl) 2.7 3.5-5.0 [facility] [id number] 09:44:00 Test Item Value Reference Range Interpretation Comments ALT (test code = ALT) 76 See_Comment [Auto mated message] The system which ge nerated this result transmit mary carmen reference range : <=65. The reference range was not used to interpr et this result as casey l/abnormal. [facility] [id number] 09:44:00 Test Item Value Reference Range Interpretation Comments AST (test code = AST) 68 See_Comment [Auto mated message] The system which ge nerated this result transmit mary carmen reference range : <=37. The reference range was not used to interpr et this result as casey l/abnormal. [facility] [id number] 09:44:00 Test Item Value Reference Range Interpretation Comments Alk Phos (test code = Alk Phos) 68 39-136 [facility] [id number] 09:44:00 Test Item Value Reference Range Interpretation Comments Bili Total (test code = Bili Total) 1.2 0.2-1.3 [facility] [id number] 09:44:00 Test Item Value Reference Range Interpretation Comments AGAP (test code = AGAP) 13.4 10.0-20.0 [facility] [id number] 09:44:00 Test Item Value Reference Range Interpretation Comments B/C Ratio (test code = B/C Ratio) 14 1 6-25 [facility] [id number] 09:44:00 Test Item Value Reference Range Interpretation Comments Globulin (test code = Globulin) 3.8 2.7-4.2 [facility] [id number] 09:44:00 Test Item Value Reference Range Interpretation Comments A/G Ratio (test code = A/G Ratio) 0.7 1 0.7-1.6 [facility]2020-10-02 09:44:00 Test Item Value Reference Range Interpretation Comments eGFR (test code = eGFR) 120 [place] 989810-10-02 09:44:00 Test Item Value Reference Range Interpretation Comments Segs (test code = Segs) 87.2 45.0-75.0 [place] [address]-10-02 09:44:00 Test Item Value Reference Range Interpretation Comments Lymphocytes (test code = Lymphocytes) 4.9 20.0-40.0 [place] [address]-10-02 09:44:00 Test Item Value Reference Range Interpretation Comments Monocytes (test code = Monocytes) 7.7 2.0-12.0 [place] [address]-10-02 09:44:00 Test Item Value Reference Range Interpretation Comments Basophils (test code = 0.2 See_Comment [Aut omated message] The Basophils) system which ge nerated this result tra nsmitted reference range : <=1.0. The reference r jose guadalupe was not used to int erpret this result as normal/abnormal . [place] 989810-10-02 09:44:00 Test Item Value Reference Range Interpretation Comments Neutrophils # (test code = Neutrophils 16.2 1.5-8.1 #) [place] [address]-10-02 09:44:00 Test Item Value Reference Range Interpretation Comments Lymphocytes # (test code = Lymphocytes 0.9 1.0-5.5 #) [place] [address]-10-02 09:44:00 Test Item Value Reference Range Interpretation Comments Monocytes # (test code 1.4 See_Comment [Aut omated message] The = Monocytes #) system which generated this result tra nsmitted reference range : <=0.8. The reference r jose guadalupe was not used to int erpret this result as normal/abnormal . [place] [address]-10-02 09:44:00 Test Item Value Reference Range Interpretation Comments WBC (test code = WBC) 18.6 3.7-10.4 [place] [address]-10-02 09:44:00 Test Item Value Reference Range Interpretation Comments RBC (test code = RBC) 3.91 4.70-6.10 [place] [address]-10-02 09:44:00 Test Item Value Reference Range Interpretation Comments Hgb (test code = Hgb) 13.5 14.0-18.0 [facility]IhdlbieBEOVUAKCCX1032-62-27 09:44:00 Test Item Value Reference Range Interpretation Comments Hct (test code = Hct) 38.7 42.0-54.0 [place] 989810-10-02 09:44:00 Test Item Value Reference Range Interpretation Comments MCV (test code = MCV) 99.0 80.0-94.0 [place] 989810-10-02 09:44:00 Test Item Value Reference Range Interpretation Comments MCH (test code = MCH) 34.5 pg 27.0-31.0 [facility] HospitalNqeiaajBCAYCJMJNY8553-65-43 09:44:00 Test Item Value Reference Range Interpretation Comments MCHC (test code = MCHC) 34.9 32.0-36.0 [facility]NjxmpewHXUVMQHCII9941-83-72 09:44:00 Test Item Value Reference Range Interpretation Comments RDW (test code = RDW) 13.5 11.5-14.5 [facility]QplhgtxQOMSWOMKTP4364-53-18 09:44:00 Test Item Value Reference Range Interpretation Comments Platelet (test code = Platelet) 155 133-450 [facility] HospitalEbjxofeAOBZNJLPXA2093-42-09 09:44:00 Test Item Value Reference Range Interpretation Comments MPV (test code = MPV) 7.5 7.4-10.4 [facility] HospitalZouwlxxTIPMGN2585-74-82 09:44:00 Test Item Value Reference Range Interpretation Comments Trig (test code = Trig) 320 [facility]2020-10-02 09:44:00 Test Item Value Reference Range Interpretation Comments Glucose Lvl (test code = Glucose Lvl) 122 70-99 [facility]2020-10-02 09:44:00 Test Item Value Reference Range Interpretation Comments BUN (test code = BUN) 11 7-22 [facility]2020-10-02 09:44:00 Test Item Value Reference Range Interpretation Comments Creatinine Lvl (test code = Creatinine 0.80 0.50-1.40 Lvl) [facility]2020-10-02 09:44:00 Test Item Value Reference Range Interpretation Comments Sodium Lvl (test code = Sodium Lvl) 137 135-145 [place] [address]-10-02 09:44:00 Test Item Value Reference Range Interpretation Comments Potassium Lvl (test code = Potassium 3.4 3.5-5.1 Lvl) [place] 177700-10-02 09:44:00 Test Item Value Reference Range Interpretation Comments Chloride Lvl (test code = Chloride Lvl) 103 95-109 [place] 177700-10-02 09:44:00 Test Item Value Reference Range Interpretation Comments CO2 (test code = CO2) 24 24-32 [place] [address]-10-02 09:44:00 Test Item Value Reference Range Interpretation Comments Calcium Lvl (test code = Calcium Lvl) 8.0 8.5-10.5 [facility] [id number] 09:44:00 Test Item Value Reference Range Interpretation Comments Total Protein (test code = Total 6.5 6.4-8.4 Protein) [facility]2020-10-02 09:44:00 Test Item Value Reference Range Interpretation Comments Albumin Lvl (test code = Albumin Lvl) 2.7 3.5-5.0 [facility] [id number] 09:44:00 Test Item Value Reference Range Interpretation Comments ALT (test code = ALT) 76 See_Comment [Auto mated message] The system which ge nerated this result transmit mary carmen reference range : <=65. The reference range was not used to interpr et this result as casey l/abnormal. [facility] [id number] 09:44:00 Test Item Value Reference Range Interpretation Comments AST (test code = AST) 68 See_Comment [Auto mated message] The system which ge nerated this result transmit mary carmen reference range : <=37. The reference range was not used to interpr et this result as casey l/abnormal. [facility] [id number] 09:44:00 Test Item Value Reference Range Interpretation Comments Alk Phos (test code = Alk Phos) 68 39-136 [facility] [id number] 09:44:00 Test Item Value Reference Range Interpretation Comments Bili Total (test code = Bili Total) 1.2 0.2-1.3 [facility] [id number] 09:44:00 Test Item Value Reference Range Interpretation Comments AGAP (test code = AGAP) 13.4 10.0-20.0 [place] 177700-10-02 09:44:00 Test Item Value Reference Range Interpretation Comments B/C Ratio (test code = B/C Ratio) 14 1 6-25 [place] [address]-10-02 09:44:00 Test Item Value Reference Range Interpretation Comments Globulin (test code = Globulin) 3.8 2.7-4.2 [place] [address]-10-02 09:44:00 Test Item Value Reference Range Interpretation Comments A/G Ratio (test code = A/G Ratio) 0.7 1 0.7-1.6 [place] [address]-10-02 09:44:00 Test Item Value Reference Range Interpretation Comments eGFR (test code = eGFR) 120 [facility]EnsgebiYCXTRQBTRT2400-79-24 09:44:00 Test Item Value Reference Range Interpretation Comments Segs (test code = Segs) 87.2 45.0-75.0 [place] [address]-10-02 09:44:00 Test Item Value Reference Range Interpretation Comments Lymphocytes (test code = Lymphocytes) 4.9 20.0-40.0 [place] [address]-10-02 09:44:00 Test Item Value Reference Range Interpretation Comments Monocytes (test code = Monocytes) 7.7 2.0-12.0 [place] [address]-10-02 09:44:00 Test Item Value Reference Range Interpretation Comments Basophils (test code = 0.2 See_Comment [Aut omated message] The Basophils) system which ge nerated this result tra nsmitted reference range : <=1.0. The reference r jose guadalupe was not used to int erpret this result as normal/abnormal . [facility] HospitalMilaxwkBONDAXYHWW3022-57-68 09:44:00 Test Item Value Reference Range Interpretation Comments Neutrophils # (test code = Neutrophils 16.2 1.5-8.1 #) [place] 989810-10-02 09:44:00 Test Item Value Reference Range Interpretation Comments Lymphocytes # (test code = Lymphocytes 0.9 1.0-5.5 #) [place] 989810-10-02 09:44:00 Test Item Value Reference Range Interpretation Comments Monocytes # (test code 1.4 See_Comment [Aut omated message] The = Monocytes #) system which generated this result tra nsmitted reference range : <=0.8. The reference r jose guadalupe was not used to int erpret this result as normal/abnormal . [facility] HospitalZllgxxsNDJKQMIKHH9176-37-77 09:44:00 Test Item Value Reference Range Interpretation Comments WBC (test code = WBC) 18.6 3.7-10.4 [facility] HospitalMziwsmeGUUFTXQGQV5057-25-81 09:44:00 Test Item Value Reference Range Interpretation Comments RBC (test code = RBC) 3.91 4.70-6.10 [facility] HospitalSwbijtkWFAZAZFRYL1353-55-76 09:44:00 Test Item Value Reference Range Interpretation Comments Hgb (test code = Hgb) 13.5 14.0-18.0 [facility] HospitalZlbttcmOATLQKGROV6332-08-23 09:44:00 Test Item Value Reference Range Interpretation Comments Hct (test code = Hct) 38.7 42.0-54.0 [facility] HospitalPptvncoWFUMHGTCTJ3213-76-67 09:44:00 Test Item Value Reference Range Interpretation Comments MCV (test code = MCV) 99.0 80.0-94.0 [facility] HospitalRrwntivOZLKTGJTHY5633-09-75 09:44:00 Test Item Value Reference Range Interpretation Comments MCH (test code = MCH) 34.5 pg 27.0-31.0 [facility] HospitalEpprkmlJOCYZRTXDK5625-02-64 09:44:00 Test Item Value Reference Range Interpretation Comments MCHC (test code = MCHC) 34.9 32.0-36.0 [facility] HospitalHvyqcniXYVYBUICKA5081-26-47 09:44:00 Test Item Value Reference Range Interpretation Comments RDW (test code = RDW) 13.5 11.5-14.5 [facility] HospitalDtmpdzvGBGNSMVDXN0835-43-68 09:44:00 Test Item Value Reference Range Interpretation Comments Platelet (test code = Platelet) 155 133-450 [facility] HospitalNfyvokgDBVGIPYYQM7880-09-80 09:44:00 Test Item Value Reference Range Interpretation Comments MPV (test code = MPV) 7.5 7.4-10.4 [facility] HospitalQzzuptnTYXWTW1105-23-03 09:44:00 Test Item Value Reference Range Interpretation Comments Trig (test code = Trig) 320 [facility] HospitalCHEM [id number] 09:44:00 Test Item Value Reference Range Interpretation Comments Glucose Lvl (test code = Glucose Lvl) 122 70-99 [facility]2020-10-02 09:44:00 Test Item Value Reference Range Interpretation Comments BUN (test code = BUN) 11 7-22 [facility]2020-10-02 09:44:00 Test Item Value Reference Range Interpretation Comments Creatinine Lvl (test code = Creatinine 0.80 0.50-1.40 Lvl) [facility]2020-10-02 09:44:00 Test Item Value Reference Range Interpretation Comments Sodium Lvl (test code = Sodium Lvl) 137 135-145 [facility]2020-10-02 09:44:00 Test Item Value Reference Range Interpretation Comments Potassium Lvl (test code = Potassium 3.4 3.5-5.1 Lvl) [facility]2020-10-02 09:44:00 Test Item Value Reference Range Interpretation Comments Chloride Lvl (test code = Chloride Lvl) 103 95-109 [facility]2020-10-02 09:44:00 Test Item Value Reference Range Interpretation Comments CO2 (test code = CO2) 24 24-32 [facility]2020-10-02 09:44:00 Test Item Value Reference Range Interpretation Comments Calcium Lvl (test code = Calcium Lvl) 8.0 8.5-10.5 [facility]2020-10-02 09:44:00 Test Item Value Reference Range Interpretation Comments Total Protein (test code = Total 6.5 6.4-8.4 Protein) [facility]2020-10-02 09:44:00 Test Item Value Reference Range Interpretation Comments Albumin Lvl (test code = Albumin Lvl) 2.7 3.5-5.0 [facility]2020-10-02 09:44:00 Test Item Value Reference Range Interpretation Comments ALT (test code = ALT) 76 <=65 [facility]2020-10-02 09:44:00 Test Item Value Reference Range Interpretation Comments AST (test code = AST) 68 <=37 [place] [address]-10-02 09:44:00 Test Item Value Reference Range Interpretation Comments Alk Phos (test code = Alk Phos) 68 39-136 [facility]2020-10-02 09:44:00 Test Item Value Reference Range Interpretation Comments Bili Total (test code = Bili Total) 1.2 0.2-1.3 [facility]2020-10-02 09:44:00 Test Item Value Reference Range Interpretation Comments AGAP (test code = AGAP) 13.4 10.0-20.0 [place] 177700-10-02 09:44:00 Test Item Value Reference Range Interpretation Comments B/C Ratio (test code = B/C Ratio) 14 1 6-25 [place] 177700-10-02 09:44:00 Test Item Value Reference Range Interpretation Comments Globulin (test code = Globulin) 3.8 2.7-4.2 [place] 177700-10-02 09:44:00 Test Item Value Reference Range Interpretation Comments A/G Ratio (test code = A/G Ratio) 0.7 1 0.7-1.6 [place] [address]-10-02 09:44:00 Test Item Value Reference Range Interpretation Comments eGFR (test code = eGFR) 120 [facility] HospitalPvytamxZSKFETRJFV3176-05-12 09:44:00 Test Item Value Reference Range Interpretation Comments Segs (test code = Segs) 87.2 45.0-75.0 [place] 989810-10-02 09:44:00 Test Item Value Reference Range Interpretation Comments Lymphocytes (test code = Lymphocytes) 4.9 20.0-40.0 [place] [address]-10-02 09:44:00 Test Item Value Reference Range Interpretation Comments Monocytes (test code = Monocytes) 7.7 2.0-12.0 [place] [address]-10-02 09:44:00 Test Item Value Reference Range Interpretation Comments Basophils (test code = Basophils) 0.2 <=1.0 [place] [address]-10-02 09:44:00 Test Item Value Reference Range Interpretation Comments Neutrophils # (test code = Neutrophils 16.2 1.5-8.1 #) [facility] HospitalHrfasybRIQLSRCFAT8555-94-40 09:44:00 Test Item Value Reference Range Interpretation Comments Lymphocytes # (test code = Lymphocytes 0.9 1.0-5.5 #) [facility] HospitalTcjaydaXZQSHPFOHO1896-72-35 09:44:00 Test Item Value Reference Range Interpretation Comments Monocytes # (test code = Monocytes #) 1.4 <=0.8 [facility] HospitalXsjyvujGWIZNQQAIH4513-07-45 09:44:00 Test Item Value Reference Range Interpretation Comments WBC (test code = WBC) 18.6 3.7-10.4 [facility] HospitalJzagryvAOKRKQWPYF3141-05-74 09:44:00 Test Item Value Reference Range Interpretation Comments RBC (test code = RBC) 3.91 4.70-6.10 [facility] HospitalEirwfwxVASZXFZGET2890-93-98 09:44:00 Test Item Value Reference Range Interpretation Comments Hgb (test code = Hgb) 13.5 14.0-18.0 [facility] HospitalUnlkzhzPIIHALMBWN0061-28-74 09:44:00 Test Item Value Reference Range Interpretation Comments Hct (test code = Hct) 38.7 42.0-54.0 [facility] HospitalZqwladcHKDYAHHNKA2712-20-86 09:44:00 Test Item Value Reference Range Interpretation Comments MCV (test code = MCV) 99.0 80.0-94.0 [facility] HospitalYummgqjHLJYPMYYML8741-13-75 09:44:00 Test Item Value Reference Range Interpretation Comments MCH (test code = MCH) 34.5 pg 27.0-31.0 [facility] HospitalOonorznTPCSSWFDON5926-02-69 09:44:00 Test Item Value Reference Range Interpretation Comments MCHC (test code = MCHC) 34.9 32.0-36.0 [facility] HospitalDdnnizsVCZNZZFGVL4159-96-69 09:44:00 Test Item Value Reference Range Interpretation Comments RDW (test code = RDW) 13.5 11.5-14.5 [facility] HospitalTdcusssBNPNXWVQZZ3449-14-40 09:44:00 Test Item Value Reference Range Interpretation Comments Platelet (test code = Platelet) 155 133-450 [facility]ZZSW[facility]OZ9021[facility]41-17 09:44:00 Test Item Value Reference Range Interpretation Comments MPV (test code = MPV) 7.5 7.4-10.4 [facility]SSONW2630-09-23 09:44:00 Test Item Value Reference Range Interpretation Comments Trig (test code = Trig) 320 [facility] [id number] 02:13:00 Test Item Value Reference Range Interpretation Comments Lactic Acid Lvl (test code = Lactic 1.5 0.5-2.2 Acid Lvl) [facility] [id number] 02:13:00 Test Item Value Reference Range Interpretation Comments Lactic Acid Lvl (test code = Lactic 1.5 0.5-2.2 Acid Lvl) [facility]2020-10-02 02:13:00 Test Item Value Reference Range Interpretation Comments Lactic Acid Lvl (test code = Lactic 1.5 0.5-2.2 Acid Lvl) [facility]2020-10-02 02:13:00 Test Item Value Reference Range Interpretation Comments Lactic Acid Lvl (test code = Lactic 1.5 0.5-2.2 Acid Lvl) [facility]IF8883[facility]-44 10:58:00 Test Item Value Reference Range Interpretation Comments Coronavirus (COVID-19) Not Detected (08/23/20 DANIS (test code = 5:58 AM) Coronavirus (COVID-19) DANIS) [facility]wgvivRTCLNSLILS8250-77-57 10:58:00 Test Item Value Reference Range Interpretation Comments Coronavirus (COVID-19) Not Detected (08/23/20 DANIS (test code = 5:58 AM) Coronavirus (COVID-19) DANIS) [facility]PalspweXQSCUSVKXN0283-73-18 10:58:00 Test Item Value Reference Range Interpretation Comments Coronavirus (COVID-19) Not Detected (08/23/20 DANIS (test code = 5:58 AM) Coronavirus (COVID-19) DANIS) [facility]WvzcsjcKUYKMKJFLR4593-58-30 10:58:00 Test Item Value Reference Range Interpretation Comments Coronavirus (COVID-19) Not Detected (08/23/20 DANIS (test code = 5:58 AM) Coronavirus (COVID-19) DANIS) [facility]2020-10-01 04:50:00 Test Item Value Reference Range Interpretation Comments Lipase Lvl (test code = Lipase Lvl) 5025 73-393 [facility]zeiwyhPMBWPUVFNZ7409-43-85 04:50:00 Test Item Value Reference Range Interpretation Comments RBC Morph (test code = Normal (08/22/20 11:50 RBC Morph) PM) [facility]XajapefUDPIZBVMHT4801-48-21 04:50:00 Test Item Value Reference Range Interpretation Comments Plt Morph (test code = Normal (08/22/20 11:50 Plt Morph) PM) [facility]WluwdbqPBRQTK1196-48-41 04:50:00 Test Item Value Reference Range Interpretation Comments Chol (test code = Chol) 174 [facility]Jtcv[facility]rpIREXSI4572-80-33 04:50:00 Test Item Value Reference Range Interpretation Comments Trig (test code = Trig) 711 [facility] HospitalSsdgiufBNNGOQ8509-93-09 04:50:00 Test Item Value Reference Range Interpretation Comments HDL (test code = HDL) 28 [facility]YxscsjkXEVRSW4769-36-61 04:50:00 Test Item Value Reference Range Interpretation Comments CHD Risk (test code = CHD Risk) 6.21 1 4.00-7.30 [facility]RjltwpjGOAGND4555-76-96 04:50:00 Test Item Value Reference Range Interpretation Comments LDL (Calculated) (test code = See Note mg/dL LDL (Calculated)) [facility]XbremetBPPPLJ8971-47-37 04:50:00 Test Item Value Reference Range Interpretation Comments VLDL (test code = See Note 5*NA*(08/22/20 VLDL) 11:50 PM) [facility] [id number] 04:50:00 Test Item Value Reference Range Interpretation Comments Lipase Lvl (test code = Lipase Lvl) 5025 54-145 [facility] HospitalRoiwmtgLCJZFYKPJG2976-79-19 04:50:00 Test Item Value Reference Range Interpretation Comments RBC Morph (test code = Normal (08/22/20 11:50 RBC Morph) PM) [facility] HospitalUtwzocjWBALCFBLNP8476-92-92 04:50:00 Test Item Value Reference Range Interpretation Comments Plt Morph (test code = Normal (08/22/20 11:50 Plt Morph) PM) [facility] DistrictRgfvrydQBFWRG7571-61-24 04:50:00 Test Item Value Reference Range Interpretation Comments Chol (test code = Chol) 174 [facility] HospitalThfbzznDOFMWK3585-59-33 04:50:00 Test Item Value Reference Range Interpretation Comments Trig (test code = Trig) 711 [facility] HospitalMvihsdcLEMOPW4319-69-04 04:50:00 Test Item Value Reference Range Interpretation Comments HDL (test code = HDL) 28 [facility] HospitalCwfooyzBZRHDU3902-26-74 04:50:00 Test Item Value Reference Range Interpretation Comments CHD Risk (test code = CHD Risk) 6.21 1 4.00-7.30 [facility]AcqnckwACRYPA9865-80-18 04:50:00 Test Item Value Reference Range Interpretation Comments LDL (Calculated) (test code = See Note mg/dL LDL (Calculated)) [facility] HospitalCfvmtjoJFTPKE3603-35-65 04:50:00 Test Item Value Reference Range Interpretation Comments VLDL (test code = See Note 5*NA*(08/22/20 VLDL) 11:50 PM) [facility]Trans[facility] [id number] 04:50:00 Test Item Value Reference Range Interpretation Comments Lipase Lvl (test code = Lipase Lvl) 0374 03-446 [facility] HospitalYlvqzayBJDLFCNHAP5236-85-48 04:50:00 Test Item Value Reference Range Interpretation Comments RBC Morph (test code = Normal (08/22/20 11:50 RBC Morph) PM) [facility]PfhxhftYEAZPYVIQR7208-45-12 04:50:00 Test Item Value Reference Range Interpretation Comments Plt Morph (test code = Normal (08/22/20 11:50 Plt Morph) PM) [facility] DistrictNrqydnfLFQYNA9490-99-78 04:50:00 Test Item Value Reference Range Interpretation Comments Chol (test code = Chol) 174 [facility] HospitalKalouvdZFVUCS9571-69-76 04:50:00 Test Item Value Reference Range Interpretation Comments Trig (test code = Trig) 711 [facility] HospitalDvgcivcFKJRFT5604-99-04 04:50:00 Test Item Value Reference Range Interpretation Comments HDL (test code = HDL) 28 [facility] HospitalEagigrzENJKOX0386-45-93 04:50:00 Test Item Value Reference Range Interpretation Comments CHD Risk (test code = CHD Risk) 6.21 1 4.00-7.30 [facility] HospitalVcnwpooZVTLFU7212-98-96 04:50:00 Test Item Value Reference Range Interpretation Comments LDL (Calculated) (test code = See Note mg/dL LDL (Calculated)) [facility] HospitalRmthqgaNMLPQM4722-82-76 04:50:00 Test Item Value Reference Range Interpretation Comments VLDL (test code = See Note 5*NA*(08/22/20 VLDL) 11:50 PM) [facility] [id number] 04:50:00 Test Item Value Reference Range Interpretation Comments Lipase Lvl (test code = Lipase Lvl) 0149 56-665 [facility] HospitalHhaelohNFCNNZMJWB2301-46-95 04:50:00 Test Item Value Reference Range Interpretation Comments RBC Morph (test code = Normal (9/30/20 11:50 RBC Morph) PM) [facility] HospitalXpajixmAGKHRBXLVJ8561-16-32 04:50:00 Test Item Value Reference Range Interpretation Comments Plt Morph (test code = Normal (08/22/20 11:50 Plt Morph) PM) [facility] HospitalKzzatizCJMVIV6672-02-01 04:50:00 Test Item Value Reference Range Interpretation Comments Chol (test code = Chol) 174 [facility] DistrictCxirdlaWVSLMA2864-32-86 04:50:00 Test Item Value Reference Range Interpretation Comments Trig (test code = Trig) 711 [facility] HospitalXeefqrjTKLNNF8888-39-77 04:50:00 Test Item Value Reference Range Interpretation Comments HDL (test code = HDL) 28 [facility] HospitalQmfqzeeQKUAYQ8503-74-30 04:50:00 Test Item Value Reference Range Interpretation Comments CHD Risk (test code = CHD Risk) 6.21 1 4.00-7.30 [facility] HospitalMecsaymGDHXKM4851-29-01 04:50:00 Test Item Value Reference Range Interpretation Comments LDL (Calculated) (test code = See Note mg/dL LDL (Calculated)) [facility] DistrictRwzrjwwXYVMYF8570-12-68 04:50:00 Test Item Value Reference Range Interpretation Comments VLDL (test code = See Note 5*NA*(08/22/20 VLDL) 11:50 PM) [facility]
[2023-09-27 17:17] LABS: Specific Gravity 1.029 (1.005-1.030); Urine Bacteria None Seen /HPF (<20); Urine Bilirubin NEGATIVE (Negative); Urine Blood Negative (Negative); Urine Clarity Clear (Clear); Urine Color Yellow (Yellow); Urine Glucose NEGATIVE (Negative); Urine Mucus 1+ /HPF (None Seen); Urine Protein 1+ (Negative); Urine RBC <5 /HPF (None Seen); Urine Urobilinogen Normal (Normal)
[2023-09-27 17:21] LABS: Absolute Lymphocytes (CBC) 1.6 K/uL (0.7-4.9); Hematocrit 39.3 % (39.6-49.0); Lymphocytes % 11.2 % (15.3-44.8); MCV 88.9 fL (80-100); Platelets 145 thou/uL (152-406); RBC Red Blood Cell Count 4.42 M/uL (4.33-5.43)
[2023-09-27 17:27] LABS: Protime INR 0.96
[2023-09-27 17:30] LABS: Barbiturates NEGATIVE (NEGATIVE); Benzodiazepines NEGATIVE (NEGATIVE); Cocaine NEGATIVE (NEGATIVE); METHAMPHETAM NEGATIVE (NEGATIVE); Methadone NEGATIVE (NEGATIVE); Opiates NEGATIVE (NEGATIVE); Phencyclidine NEGATIVE (NEGATIVE); THC Cannibis POSITIVE (NEGATIVE)
[2023-09-27 17:36] LABS: ALT/SGPT 73 U/L (16-61); AST/SGOT 43 U/L (15-37); Albumin 3.7 g/dL (3.4-5.0); Alkaline Phosphatase 104 U/L (45-117); BUN Blood Urea Nitrogen 22 mg/dL (7-18); Bicarbonate 28 mEq/L (21-32); Bilirubin Direct 0.3 mg/dL (0-0.2); Bilirubin Indirect, Calculated 0.7 mg/dL (0.2-0.8); Glomerular Filtration Rate 108 ml/min (=/>90); Glucose Level 118 mg/dL (74-106); Potassium 3.1 mEq/L (3.5-5.1); Sodium Level 134 mEq/L (136-145)
--- NOTE | 2023-09-27 17:48 | RAD REPORT ---
EXAM DESCRIPTION: CT - Head Brain Wo Cont - 09/27/2023 5:26 pm CLINICAL HISTORY: AMS, hallucinations COMPARISON: No comparisons TECHNIQUE: Noncontrast head CT images were obtained without IV contrast. Multiplanar reformats were generated and reviewed. All CT scans are performed using dose optimization technique as appropriate and may include automated exposure control or mA/KV adjustment according to patient size. FINDINGS: No intracranial hemorrhage, mass, or edema. Midline structures are unremarkable. Normal ventricular caliber for age. Rojas-white matter differentiation is preserved, without evidence of acute infarct. No abnormal extra- axial fluid collections. Mastoid air cells and visualized portions of the paranasal sinuses are clear. No acute bony findings. IMPRESSION: No evidence of an acute intracranial process.
[2023-09-27] MEDS ORDERED: DIAZEPAM 10 MG/2 ML INJ SYRINGE ONE (18:00)
--- NOTE | 2023-09-27 18:54 | ER ---
Nurse's Notes [facility] Name: Mc Barrios Age: 33 yrs Sex: Male : 1990 Arrival Date: 09/27/2023 Time: 16:04 Bed 18 Private MD: Diagnosis: Hallucinations, unspecified;Paranoia Presentation: 09/27 16:21 Chief complaint: Patient states: "I was taking a shower and then some technology cm10 entered my body. This technology is giving me navigational directions. There is some AI technology that is directing me of some sort." Pt states that if he didn't do what the "AI was telling me to do, it was going to end my heart." Pt denies and SI or HI at this time. Coronavirus screen: Vaccine status: Patient reports being unvaccinated. Client denies travel out of the [place] in the last 14 days. Ebola Screen: Patient denies travel to an Ebola-affected area in the 21 days before illness onset. No symptoms or risks identified at this time. Initial Sepsis Screen: Does the patient meet any 2 criteria? No. Patient's initial sepsis screen is negative. Does the patient have a suspected source of infection? No. Patient's initial sepsis screen is negative. Risk Assessment: Do you want to hurt yourself or someone else? Patient reports no desire to harm self or others. Onset of symptoms was September 27, 2023. 16:21 Method Of Arrival: Ambulatory cm10 16:21 Acuity: ROSCOE 2 cm10 Historical: - Allergies: 16:24 Sulfa (Sulfonamide Antibiotics); cm10 - PMHx: 16:24 Alcoholism; Hypertension; Pancreatitis; substance abuse (hernia repair); Depressive cm10 disorder; Anxiety; - PSHx: 16:24 hernia repair; cm10 - Immunization history:: Adult Immunizations unknown. - Social history:: Smoking status: Reported history of juuling and/or vaping. Patient uses street drugs, marijuana. - Family history:: not pertinent. - Hospitalizations: : No recent hospitalization is reported. Screenin:30 [facility] ED Fall Risk Assessment (Adult) History of falling in the last 3 months, db including since admission No falls in past 3 months (0 pts) Confusion or Disorientation No (0 pts) Intoxicated or Sedated No (0 pts) Impaired Gait No (0 pts) Mobility Assist Device Used No (0 pt) Altered Elimination No (0 pt) Score/Fall Risk Level 0 - 2 = Low Risk Oriented to surroundings, Maintained a safe environment. Abuse screen: Denies threats or abuse. Denies injuries from another. Nutritional screening: No deficits noted. Tuberculosis screening: No symptoms or risk factors identified. Assessment: 17:15 Reassessment: Patient appears in no apparent distress at this time. Patient and/or db family updated on plan of care and expected duration. Pain level reassessed. Patient is alert, oriented x 3, equal unlabored respirations, skin warm/dry/pink. General: Appears in no apparent distress. comfortable, Behavior is cooperative, anxious. Pain: Denies pain. Neuro: Level of Consciousness is awake, alert, obeys commands, Oriented to person, place, time, situation, Reports HAVING AI TECHNOLOGY IN HIS BLOOD AND BRAIN CONTROLLING HIM. Respiratory: Airway is patent Respiratory effort is even, unlabored, Respiratory pattern is regular, symmetrical. 18:23 Reassessment: Patient appears in no apparent distress at this time. Patient and/or db family updated on plan of care and expected duration. Pain level reassessed. Patient is alert, oriented x 3, equal unlabored respirations, skin warm/dry/pink. LIGHTS ARE DIMMED. DAD IS AT BEDSIDE. General: Appears. 19:42 General: Appears in no apparent distress. comfortable, Behavior is cooperative, lg3 anxious. Pain: Denies pain. Neuro: Waters Agitation-Sedation Scale (RASS): 0 - Alert and Calm Level of Consciousness is awake, alert, obeys commands, Oriented to person, place, time, situation. Cardiovascular: No deficits noted. Denies chest pain, shortness of breath, Capillary refill < 3 seconds Clubbing of nail beds is absent JVD is absent Patient's skin is warm and dry. Respiratory: No deficits noted. Airway is patent Respiratory effort is even, unlabored, Respiratory pattern is regular, symmetrical. GI: No deficits noted. No signs and/or symptoms were reported involving the gastrointestinal system. : No deficits noted. No signs and/or symptoms were reported regarding the genitourinary system. EENT: No deficits noted. No signs and/or symptoms were reported regarding the EENT system. Derm: No deficits noted. No signs and/or symptoms reported regarding the dermatologic system. Skin is intact, is healthy with good turgor, Skin is dry, Skin is normal, Skin temperature is warm. Musculoskeletal: No deficits noted. No signs and/or symptoms reported regarding the musculoskeletal system. Circulation, motion, and sensation intact. Range of motion: intact in all extremities. 20:27 Reassessment: Patient appears in no apparent distress at this time. No changes from lg3 previously documented assessment. Patient and/or family updated on plan of care and expected duration. Pain level reassessed. Patient is alert, oriented x 3, equal unlabored respirations, skin warm/dry/pink. Patient denies pain at this time. Vital Signs: 16:21 BP 149 / 106; Pulse 88; Resp 18; Temp 98.4(TE); Pulse Ox 97% ; Weight 113.4 kg (R); cm10 Height 6 ft. 3 in. ; Pain 0/10; 17:47 BP 135 / 89; Pulse 85; Resp 18; Pulse Ox 96% on R/A; db 18:00 BP 142 / 79; Pulse 81; Resp 18; Pulse Ox 97% on R/A; db 19:51 BP 130 / 77; Pulse 77; Resp 18; Pulse Ox 98% on R/A; lg3 16:21 Body Mass Index 31.25 (113.40 kg, 190.5 cm) cm10 16:21 Pain Scale: Adult cm10 ED Course: 16:07 Patient arrived in ED. mr 16:20 Garrett Ferguson MD is Attending Physician. rn 16:24 Triage completed. cm10 16:24 Arm band placed on Patient placed in an exam room, on a stretcher. cm10 16:47 Mercy Martin, RN is Primary Nurse. db 17:20 Inserted saline lock: 20 gauge in left antecubital area, using aseptic technique. Blood db collected. 17:28 CT Head Brain wo Cont In Process Unspecified. EDMS 17:58 Patient has correct armband on for positive identification. Bed in low position. Call db light in reach. Side rails up X 1. Pulse ox on. NIBP on. 19:08 Faxed pt clinicals to the following facilities for placement; [facility] [place], [facility], [address], [facility], [facility], [facility], [facility], [place], [facility]. 19:42 Door closed. Noise minimized. Warm blanket given. Family accompanied patient. lg3 19:42 Patient maintains SpO2 saturation greater than 95% on room air. lg3 20:27 No provider procedures requiring assistance completed. lg3 20:34 IV discontinued, intact, bleeding controlled, No redness/swelling at site. Pressure lg3 dressing applied. Administered Medications: 20:34 Discontinued: potassium [id number] meq IV at calculated rate once; administer over 1-2 lg3 hours 17:15 CANCELLED (Duplicate Order): [id number] mg IVP once rn 17:38 Drug: Diazepam IVP 5 mg IVP once Route: IVP; Site: left antecubital; db 18:56 Follow up: Response: No adverse reaction db 19:09 Drug: Potassium Chloride IV 20 mEq IV at calculated rate once; administer over 1-2 db hours Route: IV; Rate: calculated rate; Site: left antecubital; 19:09 Drug: Haloperidol IVP 5 mg IVP once Route: IVP; Site: left antecubital; db 20:34 Follow up: Response: No adverse reaction; Marked relief of symptoms; RASS: Alert and lg3 Calm (0) 20:34 Drug: Potassium PO Effervescent Tablet 50 mEq PO once; dissolve in 4 ounces of water or lg3 juice Route: PO; 20:35 Follow up: Response: No adverse reaction lg3 Medication: 20:34 VIS not applicable for this client. lg3 Outcome: 18:54 ER care complete, transfer ordered by MD. rn 20:27 Transferred by ground EMS Note: [facility] lg3 20:27 Condition: stable 20:27 Instructed on the need for transfer, Demonstrated understanding of instructions, 20:35 Patient left the ED. lg3 Signatures: Dispatcher [employer] EDNY Valery Pearl, Reg Reg Garrett Rose MD MD rn Gibson, Lacie, RN RN lg3 Mercy Martin, MARTÍN RN Nataly Rayo rv1 Jacquelin Villegas RN RN cm10 Corrections: (The following items were deleted from the chart) 16:25 16:21 Chief complaint: Patient states: "I was taking a shower and then some technology cm10 entered my body. This technology is giving me navigational directions. There is some AI technology that is directing me of some sort." Pt states that if he didn't do what the "AI was telling me to do, it was going to end my heart." cm10 18:24 17:15 Reassessment: Patient appears in no apparent distress at this time. Patient db and/or family updated on plan of care and expected duration. Pain level reassessed. Patient is alert, oriented x 3, equal unlabored respirations, skin warm/dry/pink. db 18:24 17:15 General: Appears in no apparent distress. comfortable, Behavior is calm, db cooperative, db
--- NOTE | 2023-09-27 18:54 | EDPHYS ---
Physician Documentation [facility] Name: Mc Barrios Age: 33 yrs Sex: Male : 1990 Arrival Date: 09/27/2023 Time: 16:04 Bed 18 Private MD: ED Physician Garrett Ferguson HPI: 09/27 17:13 This 33 yrs old Male presents to ER via Ambulatory with complaints of Mental Evaluation.rn 17:13 The patient presents to the emergency department with paranoia. Onset: The rn symptoms/episode began/occurred today. Severity of symptoms: At their worst the symptoms were moderate in the emergency department the symptoms are unchanged. The patient has not experienced similar symptoms in the past. Patient reports believes AI technology was somehow inserted into his body and blood vessels. It is communicating to him through primary communication and giving him orders to go to a certain place. He believes the intention is bad and fears that the technology is guiding him to injure someone. Is not suicidal. No previous psychiatric problems. Smokes marijuana but denies any other drugs.. Historical: - Allergies: 16:24 Sulfa (Sulfonamide Antibiotics); cm10 - PMHx: 16:24 Alcoholism; Hypertension; Pancreatitis; substance abuse (hernia repair); Depressive cm10 disorder; Anxiety; - PSHx: 16:24 hernia repair; cm10 - Immunization history:: Adult Immunizations unknown. - Social history:: Smoking status: Reported history of juuling and/or vaping. Patient uses street drugs, marijuana. - Family history:: not pertinent. - Hospitalizations: : No recent hospitalization is reported. ROS: 17:15 Constitutional: Negative for fever, chills, and weight loss, Eyes: Negative for injury, rn pain, redness, and discharge, Cardiovascular: Negative for chest pain, palpitations, and edema, Respiratory: Negative for shortness of breath, cough, wheezing, and pleuritic chest pain, Abdomen/GI: Negative for abdominal pain, nausea, vomiting, diarrhea, and constipation, MS/Extremity: Negative for injury and deformity, Skin: Negative for injury, rash, and discoloration, Neuro: Negative for headache, weakness, numbness, tingling, and seizure, Exam: 17:15 Constitutional: This is a well developed, well nourished patient who is awake, alert, rn diaphoretic, pleasant, follows all commands Head/Face: Normocephalic, atraumatic. Eyes: Pupils equal round and reactive to light, extra-ocular motions intact Cardiovascular: Regular rate and rhythm. No pulse deficits. Respiratory: No increased work of breathing, no retractions or nasal flaring. Abdomen/GI: Soft, non-tender Skin: Patient diaphoretic MS/ Extremity: Pulses equal, no cyanosis. Neuro: Awake and alert, GCS 15 17:37 ECG was reviewed by the Attending Physician. rn Vital Signs: 16:21 BP 149 / 106; Pulse 88; Resp 18; Temp 98.4(TE); Pulse Ox 97% ; Weight 113.4 kg (R); cm10 Height 6 ft. 3 in. ; Pain 0/10; 17:47 BP 135 / 89; Pulse 85; Resp 18; Pulse Ox 96% on R/A; db 18:00 BP 142 / 79; Pulse 81; Resp 18; Pulse Ox 97% on R/A; db 19:51 BP 130 / 77; Pulse 77; Resp 18; Pulse Ox 98% on R/A; lg3 16:21 Body Mass Index 31.25 (113.40 kg, 190.5 cm) cm10 16:21 Pain Scale: Adult cm10 MDM: 16:20 Patient medically screened. rn 18:52 Differential diagnosis: acute psychotic break, depression. Data reviewed: vital signs, rn nurses notes, lab test result(s), radiologic studies, and as a result, I will admit patient. Counseling: I had a detailed discussion with the patient and/or guardian regarding the historical points, exam findings, and any diagnostic results supporting the discharge/admit diagnosis, lab results, radiology results, the need to transfer to another facility, [facility] does not immediately have the required specialist. ED course: Patient is voluntary and would like psychiatric evaluation and transfer. Father is in the room and agrees with plan. Patient is no longer daily drinker due to pancreatitis and pain that he used to experience. Reports only smokes marijuana and drug screen otherwise negative as well. Afebrile. No sign of infection.. 09/27 16:30 Order name: Acetaminophen; Complete Time: 17:45 rn 09/27 16:30 Order name: Basic Metabolic Panel; Complete Time: 17:45 rn 09/27 16:30 Order name: CBC with Diff; Complete Time: 17:45 rn 09/27 16:30 Order name: ETOH Level; Complete Time: 17:45 rn 09/27 16:30 Order name: Hepatic Function; Complete Time: 17:45 rn 09/27 16:30 Order name: PT-INR; Complete Time: 17:45 rn 09/27 16:30 Order name: Ptt, Activated; Complete Time: 17:45 rn 09/27 16:30 Order name: Salicylate; Complete Time: 17:45 rn 09/27 16:30 Order name: Urinalysis w/ reflexes; Complete Time: 17:45 rn 09/27 16:30 Order name: Urine Drug Screen; Complete Time: 17:45 rn 09/27 16:44 Order name: CT Head Brain wo Cont; Complete Time: 18:17 rn 09/27 16:30 Order name: EKG; Complete Time: 16:31 rn 09/27 16:30 Order name: EKG - Nurse/Tech; Complete Time: 17:36 rn 09/27 16:30 Order name: IV Saline Lock; Complete Time: 17:36 rn 09/27 16:30 Order name: Labs collected and sent; Complete Time: 17:36 rn 09/27 16:30 Order name: Suicide Screening ([place]); Complete Time: 17:37 rn EC:37 Rate is 81 beats/min. Rhythm is regular. QRS [place] is Normal. [place] interval is normal. QRS rn interval is normal. QT interval is normal. No Q waves. T waves are Normal. No ST changes noted. Clinical impression: NSR w/ Non-specific ST/T Changes. Interpreted by me. Reviewed by me. Administered Medications: 20:34 Discontinued: potassium [id number] meq IV at calculated rate once; administer over 1-2 lg3 hours 17:15 CANCELLED (Duplicate Order): [id number] mg IVP once rn 17:38 Drug: Diazepam IVP 5 mg IVP once Route: IVP; Site: left antecubital; db 18:56 Follow up: Response: No adverse reaction db 19:09 Drug: Potassium Chloride IV 20 mEq IV at calculated rate once; administer over 1-2 db hours Route: IV; Rate: calculated rate; Site: left antecubital; 19:09 Drug: Haloperidol IVP 5 mg IVP once Route: IVP; Site: left antecubital; db 20:34 Follow up: Response: No adverse reaction; Marked relief of symptoms; RASS: Alert and lg3 Calm (0) 20:34 Drug: Potassium PO Effervescent Tablet 50 mEq PO once; dissolve in 4 ounces of water or lg3 juice Route: PO; 20:35 Follow up: Response: No adverse reaction lg3 Disposition Summary: 09/27/23 18:54 Transfer Ordered Notes: Transfer Location: [facility] Facility rn Reason: Higher level of care rn Condition: Stable rn Problem: new rn Symptoms: have improved rn Accepting Physician: (09/27/23 20:35) lg3 Diagnosis - Hallucinations, unspecified rn - Paranoia rn Forms: - Medication Reconciliation Form rn - SBAR form rn Signatures: Dispatcher [employer] EDGarrett Chadwick MD MD rn Peltier, Brian, RN RN Josie Carvajal, RN RN lg3 Mercy Martin, RN RN Jacquelin Garcia, RN RN cm10 Corrections: (The following items were deleted from the chart) 17:15 17:14 Diazepam IVP 10 mg IVP once ordered. rn rn 20:35 18:54 rn lg3
[2023-09-27] MEDS ORDERED: KCL 20 MEQ/100 mL IVPB 100 ML IV ONE (19:14)
[2023-09-27] MEDS ORDERED: HALOPERIDOL LACT 5 MG/ML INJ ONE (19:14)
[2023-09-27] MEDS ORDERED: NA CHLORIDE 0.9% 500 ML ONE (19:15)
[2023-09-27 20:39] VITALS: TEMP 98.4
[2023-09-27 20:44] VITALS: BP 130/77; O2SAT 98
[2023-09-27] MEDS ORDERED: POTASSIUM 25 MEQ EFFERV TAB ONE (20:45)
--- NOTE | 2023-10-03 14:36 | EKG ---
Test Date: 2023-09-27 Test Time: 17:06:20 Plant Electrician: BISHNU MEASUREMENT RESULTS: Intervals: Rate: 81 NM: 136 QRSD: 96 QT: 398 QTc: 462 [place]: P: 23 NM: 136 QRS: 4 T: -2 INTERPRETIVE STATEMENTS: Normal sinus rhythm Voltage criteria for left ventricular hypertrophy Nonspecific ST abnormality Abnormal ECG Compared to ECG 08/05/2022 10:02:22 Left ventricular hypertrophy now present ST (T wave) deviation now present Electronically Signed On 10-03-23 14:18:39 PUFF IRONER by Manny Shirley
== END 2023-09-27 20:35 ==
LOC: ER 16:04
DX: F22 Delusional disorders (principal)
CPT/HCPCS: 93005; 85025; 81001; 80048; 36415; 85610; 80076; 85730; 80307; 70450; 96375; 96374; 99285; 80143; 80179; 82077; J3480; J1630; J3360; J7040

== ENCOUNTER 2023-11-10 09:38 | Inpatient (IN) | payer BC ==
[2023-11-10] MEDS ORDERED: LORazepam 2 MG/ML VIAL ONE ×4 (10:00→17:30)
[2023-11-10] MEDS ORDERED: ONDANSETRON 4 MG/2 ML VIAL ONE (10:00)
[2023-11-10] MEDS ORDERED: NA CHLORIDE 0.9% 1,000 ML ONE (10:01)
[2023-11-10 10:03] LABS: Hematocrit 37.3 % (39.6-49.0); Lymphocytes % 14.2 % (15.3-44.8); MCV 87.8 fL (80-100); MPV 6.1 fL (7.6-11.3); Platelets 200 thou/uL (152-406); RBC Red Blood Cell Count 4.25 M/uL (4.33-5.43)
--- NOTE | 2023-11-10 10:28 | RAD REPORT ---
EXAM DESCRIPTION: CTAbdomen Pelvis W Contrast - 11/10/2023 10:18 am CLINICAL HISTORY: ABD PAIN COMPARISON: Abdomen Pelvis W Contrast dated 10/26/2023; Abdomen Pelvis W Contrast dated 07/15/2023 ; Abdomen Pelvis W Contrast dated 04/19/2023; Abdomen Pelvis W Contrast dated 08/05/2022 TECHNIQUE: CT of the abdomen and pelvis was performed. All CT scans are performed using dose optimization technique as appropriate and may include automated exposure control or mA/KV adjustment according to patient size. FINDINGS: Lower chest: No acute abnormality. Liver: Hepatic steatosis Biliary: No biliary ductal dilatation. Stomach: No significant focal abnormality. Duodenum: No significant focal abnormality. Pancreas: Mild diffuse peripancreatic stranding. Small fluid collection at the pancreatic body measur ing 15 millimeters is better seen compared with prior but not significantly changed. No evidence of p ancreatic necrosis. Spleen: No significant abnormality. Adrenal: No suspicious lesions. Kidney/ureter: No hydronephrosis. No renal calculi. Retroperitoneum: No retroperitoneal adenopathy. Vascular: No aneurysm. Bowel: No significant focal abnormality. Normal appendix. Peritoneum: No ascites or free air. Bladder: Grossly unremarkable. Reproductive: No adnexal masses. Bones: No acute fracture. Other: n/a IMPRESSION: Similar mild diffuse peripancreatic stranding consistent with pancreatitis. Cystic struc ture at the pancreatic body is not significantly changed and which may represent a pseudocyst.
[2023-11-10] MEDS ORDERED: MORPHINE 4 MG/ML SYR ONE (10:35)
[2023-11-10 10:39] LABS: Albumin 3.3 g/dL (3.4-5.0); Bilirubin Total 0.6 mg/dL (0.2-1.0); Protein, Total 7.4 g/dL (6.4-8.2)
[2023-11-10 10:42] LABS: Potassium 2.6 mEq/L (3.5-5.1)
[2023-11-10] MEDS ORDERED: KCL 20 MEQ/100 mL IVPB 200 ML IV ONE (11:00)
[2023-11-10] MEDS ORDERED: Magnesium Sulfate 2gm IVPB 2 G/50 ML BAG IV ONE (11:00)
[2023-11-10] MEDS ORDERED: NA CHLORIDE 0.9% 2,000 ML ONE (11:01)
[2023-11-10] MEDS: LORazepam 2 MG/ML VIAL IV PRN ×4 (11:05→23:35)
--- NOTE | 2023-11-10 11:05 | EDPHYS ---
Physician Documentation [facility] Name: Mc Barrios Age: 33 yrs Sex: Male : 1990 Arrival Date: 11/10/2023 Time: 09:38 Bed 6 Private MD: ED Physician Edwin Cristina HPI: 11/10 10:38 This 33 yrs old Male presents to ER via EMS with complaints of alcohol withdrawal. rt 10:38 Patient presents to the ED with alcohol withdrawal, abdominal pain with nausea and rt vomiting. The patient states that he was clean for a while, went on a 2-week almaraz where he consumed about a bottle of vodka per day. Has not had alcohol within the past 24 hours. Reports an epigastric pain consistent with prior episodes of pancreatitis. Denies other acute complaints, symptoms are moderate in severity, no other aggravating elevating factors.. Historical: - Allergies: 09:50 Sulfa (Sulfonamide Antibiotics); rs5 - PMHx: 09:50 Alcoholism; Anxiety; depressive disorder; Hypertension; Pancreatitis; Substance Abuse; rs5 - PSHx: 09:50 hernia repair; rs5 - Immunization history:: Adult Immunizations unknown. - Social history:: Smoking status: Patient denies any tobacco usage or history of. - Family history:: not pertinent. ROS: 10:38 Constitutional: Negative for fever, chills, and weight loss, Cardiovascular: Negative rt for chest pain, palpitations, and edema, Respiratory: Negative for shortness of breath, cough, wheezing, and pleuritic chest pain, MS/Extremity: Negative for injury and deformity, Skin: Negative for injury, rash, and discoloration, Neuro: Negative for headache, weakness, numbness, tingling, and seizure, Psych: Negative for depression, anxiety, suicide ideation, homicidal ideation, and hallucinations, 10:38 Abdomen/GI: Positive for abdominal pain, nausea and vomiting, Exam: 10:38 Constitutional: This is a well developed, well nourished patient who is awake, alert, rt and in no acute distress. Head/Face: Normocephalic, atraumatic. Chest/axilla: Normal chest wall appearance and motion. Nontender with no deformity. No lesions are appreciated. Cardiovascular: Regular rate and rhythm with a normal S1 and S2. No gallops, murmurs, or rubs. Normal PMI, no JVD. No pulse deficits. Respiratory: Lungs have equal breath sounds bilaterally, clear to auscultation and percussion. No rales, rhonchi or wheezes noted. No increased work of breathing, no retractions or nasal flaring. Skin: Warm, dry with normal turgor. Normal color with no rashes, no lesions, and no evidence of cellulitis. MS/ Extremity: Pulses equal, no cyanosis. Neurovascular intact. Full, normal range of motion. 10:38 ECG was reviewed by the Attending Physician. 10:38 Abdomen/GI: Tenderness to the epigastrium with mild guarding, no rebound, distention, 10:38 Neuro: Awake, alert, tremulousness noted, Vital Signs: 10:05 BP 152 / 99; Pulse 110; Resp 18; Temp 98(O); Pulse Ox 99% on R/A; rs5 11:22 BP 141 / 107; Pulse 110; Resp 17; Pulse Ox 99% on R/A; rs5 12:08 BP 140 / 96; Pulse 108; Resp 17; Pulse Ox 99% on R/A; rs5 MDM: 09:42 Patient medically screened. rt 11:24 Differential Diagnosis Alcohol withdrawal, electrolyte disturbance, pancreatitis. Data rt reviewed: vital signs, nurses notes. Consideration of Admission/Observation Patient was admitted/placed on observation. Management of patient was discussed with the following: Hospitalist: Agrees to admit. I considered the following discharge prescriptions or medication management in the emergency department Medications were administered in the Emergency Department. See MAR. Independent interpretation of the following test(s) in the Emergency Department CT Scan: My interpretation is No bowel obstruction seen on interpretation of CT scan images. Care significantly affected by the following chronic conditions: Hypertension. Care significantly affected by the following Social Determinants of Health: Misuse of alcohol and/or drugs. Counseling: I had a detailed discussion with the patient and/or guardian regarding the historical points, exam findings, and any diagnostic results supporting the discharge/admit diagnosis, lab results, radiology results, the need for further work-up and treatment in the hospital. Response to treatment: the patient's symptoms have mildly improved after treatment. 11/10 09:43 Order name: CBC with Diff; Complete Time: 10:25 rt 11/10 09:43 Order name: CMP; Complete Time: 10:42 rt 11/10 09:43 Order name: Lipase; Complete Time: 10:42 rt 11/10 09:43 Order name: CT Abd/Pelvis - IV Contrast Only; Complete Time: 10:29 rt 11/10 09:43 Order name: EKG; Complete Time: 09:43 rt 11/10 09:43 Order name: IV Saline Lock; Complete Time: 10:10 rt 11/10 09:43 Order name: Labs collected and sent; Complete Time: 10:10 rt 11/10 09:43 Order name: EKG - Nurse/Tech; Complete Time: 10:10 rt EC:38 Rate is 110 beats/min. Rhythm is regular, Sinus tachycardia with No ectopy. QRS [place] is rt Normal. [place] interval is normal. QRS interval is normal. No Q waves. Clinical impression: NSR w/ Non-specific ST/T Changes. Administered Medications: 10:01 Drug: NS 0.9% IV 1000 ml IV at 1 bolus Per protocol; 1000 mL bolus Route: IV; Rate: 1 rs5 bolus; Site: left antecubital; 10:15 Follow up: Response: No adverse reaction rs5 10:01 Drug: Ativan IVP 2 mg IVP once Route: IVP; Site: left antecubital; rs5 10:20 Follow up: Response: No adverse reaction; Anxiety decreased rs5 10:01 Drug: Ondansetron IVP 4 mg IVP once; over 2 minutes Route: IVP; Site: left antecubital; rs5 10:20 Follow up: Response: No adverse reaction; Nausea is decreased rs5 10:38 Drug: morphine IVP or IV 4 mg IVP once over 4 mins Route: IVP; Infused Over: 4 mins; rs5 Site: left antecubital; 11:00 Follow up: Response: No adverse reaction rs5 11:12 Drug: Magnesium Sulfate IVPB 2 grams IVPB once over 2 hrs Route: IVPB; Infused Over: 2 ko1 hrs; Site: left antecubital; 11:30 Follow up: Response: No adverse reaction rs5 11:24 Drug: Potassium Chloride IV 40 mEq IV at calculated rate once; administer over 4 hours ko1 Route: IV; Rate: calculated rate; Site: left antecubital; 12:00 Follow up: Response: No adverse reaction rs5 11:33 Drug: HYDROmorphone IVP 1 mg IVP once Route: IVP; Site: left antecubital; rs5 11:45 Follow up: Response: No adverse reaction; Pain is decreased rs5 12:11 Drug: NS 0.9% IV 1000 ml IV at 1000 ml once Route: IV; Rate: 1000 ml; Site: left ko1 antecubital; 12:11 Drug: NS 0.9% IV 1000 ml IV at 200 ml/hr continuous Route: IV; Rate: 200 ml/hr; Site: ko1 left antecubital; 12:30 Follow up: Response: No adverse reaction rs5 Disposition Summary: 11/10/23 11:05 Hospitalization Ordered Notes: Hospitalization Status: Inpatient Admission rt Provider: José Luis Ferguson Condition: Stable rt Problem: new rt Symptoms: have improved rt Bed/Room Type: Standard rt Location: Intensive Care Unit(11/10/23 11:37) la1 Room Assignment: 6-(11/10/23 14:50) bd Diagnosis - Alcohol withdrawal rt - Acute pancreatitis rt - Hypokalemia rt Forms: - Medication Reconciliation Form rt - SBAR form rt - Leadership Thank You Letter rt Critical care time excluding procedures: 11:24 Critical care time: Bedside Care: 30 minutes, Consultation: 5 minutes. Total time: 35 rt minutes Signatures: Dispatcher [employer] EDMolly Reid Lee, FNP-C [employer]ER-Cla1 Liana Raines, MARTÍN RN ko1 Edwin Cristina MD MD rt Jasson Seaman RN RN rs5 Corrections: (The following items were deleted from the chart) 11:37 11:05 Telemetry/MedSurg (Inpatient) rt la1 11:37 11:05 rt la1 14:50 11:37 la1 bd
--- NOTE | 2023-11-10 11:05 | ER ---
Nurse's Notes [facility] Name: Mc Barrios Age: 33 yrs Sex: Male : 1990 Arrival Date: 11/10/2023 Time: 09:38 Bed 6 Private MD: Diagnosis: Alcohol withdrawal;Acute pancreatitis;Hypokalemia Presentation: 11/10 09:45 Chief complaint: EMS states: Pt is going through alcohol withdrawal, is shaky, rs5 nauseous, and complains of mid-epigastric abdominal pain. Last alcoholic beverage was 24 hrs ago. 10:05 Coronavirus screen: At this time, the client does not indicate any symptoms associated rs5 with coronavirus-19. Ebola Screen: No symptoms or risks identified at this time. Initial Sepsis Screen: Does the patient meet any 2 criteria? HR > 90 bpm. Yes Does the patient have a suspected source of infection? No. Patient's initial sepsis screen is negative. Risk Assessment: Do you want to hurt yourself or someone else? Patient reports no desire to harm self or others. Onset of symptoms was November 10, 2023. 10:05 Method Of Arrival: EMS: [facility] rs5 10:05 Acuity: ROSCOE 3 rs5 Historical: - Allergies: 09:50 Sulfa (Sulfonamide Antibiotics); rs5 - PMHx: 09:50 Alcoholism; Anxiety; depressive disorder; Hypertension; Pancreatitis; Substance Abuse; rs5 - PSHx: 09:50 hernia repair; rs5 - Immunization history:: Adult Immunizations unknown. - Social history:: Smoking status: Patient denies any tobacco usage or history of. - Family history:: not pertinent. Screenin:45 [facility] ED Fall Risk Assessment (Adult) History of falling in the last 3 months, rs5 including since admission No falls in past 3 months (0 pts) Confusion or Disorientation No (0 pts) Intoxicated or Sedated No (0 pts) Impaired Gait No (0 pts) Mobility Assist Device Used No (0 pt) Altered Elimination No (0 pt) Score/Fall Risk Level 0 - 2 = Low Risk Oriented to surroundings, Maintained a safe environment. Abuse screen: Denies threats or abuse. Nutritional screening: No deficits noted. Tuberculosis screening: No symptoms or risk factors identified. Assessment: 09:45 General: Appears distressed, uncomfortable, Behavior is cooperative, anxious. Pain: rs5 Complains of pain in abdomen Pain does not radiate. Pain currently is 7 out of 10 on a pain scale. Quality of pain is described as burning, aching, Pain began 3 hours ago. Is continuous. Neuro: Level of Consciousness is awake, alert, obeys commands, Oriented to person, place, time, situation. Cardiovascular: Denies chest pain, Heart tones S1 S2 present Rhythm is sinus tachycardia. Respiratory: Airway is patent Respiratory effort is even, unlabored, Respiratory pattern is regular, symmetrical, Breath sounds are clear bilaterally. GI: Bowel sounds present X 4 quads. Abd is soft and non tender X 4 quads. Reports nausea. : No signs and/or symptoms were reported regarding the genitourinary system. EENT: No signs and/or symptoms were reported regarding the EENT system. Derm: Skin is intact, Skin is pink, warm \T\ dry. Musculoskeletal: Range of motion: intact in all extremities. 11:00 Reassessment: Patient and/or family updated on plan of care and expected duration. Pain rs5 level reassessed. Patient is alert, oriented x 3, equal unlabored respirations, skin warm/dry/pink. Patient denies pain at this time. Patient states feeling better. Patient states symptoms have improved. 11:30 Reassessment: Patient and/or family updated on plan of care and expected duration. Pain rs5 level reassessed. Provider notified pt is experiencing pain . Pain: Complains of pain in abdomen Pain does not radiate. Pain currently is 8 out of 10 on a pain scale. Quality of pain is described as aching, Is continuous. 12:08 Reassessment: Patient and/or family updated on plan of care and expected duration. Pain rs5 level reassessed. Patient is alert, oriented x 3, equal unlabored respirations, skin warm/dry/pink. Patient denies pain at this time. Patient states feeling better. Vital Signs: 10:05 BP 152 / 99; Pulse 110; Resp 18; Temp 98(O); Pulse Ox 99% on R/A; rs5 11:22 BP 141 / 107; Pulse 110; Resp 17; Pulse Ox 99% on R/A; rs5 12:08 BP 140 / 96; Pulse 108; Resp 17; Pulse Ox 99% on R/A; rs5 ED Course: 09:42 Patient arrived in ED. bd 09:42 Edwin Cristina MD is Attending Physician. rt 09:45 Patient has correct armband on for positive identification. Placed in gown. Bed in low rs5 position. Call light in reach. Side rails up X2. 09:59 Jasson Seaman, RN is Primary Nurse. rs5 10:00 Inserted saline lock: 20 gauge in left antecubital area, using aseptic technique. Blood rs5 collected. 10:08 Triage completed. rs5 10:19 CT Abd/Pelvis - IV Contrast Only In Process Unspecified. EDMS 10:42 Notified ED physician of a critical lab result(s). potassium 2.6. ap3 11:04 José Luis Ferguson MD is Hospitalizing Provider. rt 11:22 No provider procedures requiring assistance completed. rs5 13:07 Patient admitted, IV remains in place. rs5 Administered Medications: 10:01 Drug: NS 0.9% IV 1000 ml IV at 1 bolus Per protocol; 1000 mL bolus Route: IV; Rate: 1 rs5 bolus; Site: left antecubital; 10:15 Follow up: Response: No adverse reaction rs5 10:01 Drug: Ativan IVP 2 mg IVP once Route: IVP; Site: left antecubital; rs5 10:20 Follow up: Response: No adverse reaction; Anxiety decreased rs5 10:01 Drug: Ondansetron IVP 4 mg IVP once; over 2 minutes Route: IVP; Site: left antecubital; rs5 10:20 Follow up: Response: No adverse reaction; Nausea is decreased rs5 10:38 Drug: morphine IVP or IV 4 mg IVP once over 4 mins Route: IVP; Infused Over: 4 mins; rs5 Site: left antecubital; 11:00 Follow up: Response: No adverse reaction rs5 11:12 Drug: Magnesium Sulfate IVPB 2 grams IVPB once over 2 hrs Route: IVPB; Infused Over: 2 ko1 hrs; Site: left antecubital; 11:30 Follow up: Response: No adverse reaction rs5 11:24 Drug: Potassium Chloride IV 40 mEq IV at calculated rate once; administer over 4 hours ko1 Route: IV; Rate: calculated rate; Site: left antecubital; 12:00 Follow up: Response: No adverse reaction rs5 11:33 Drug: HYDROmorphone IVP 1 mg IVP once Route: IVP; Site: left antecubital; rs5 11:45 Follow up: Response: No adverse reaction; Pain is decreased rs5 12:11 Drug: NS 0.9% IV 1000 ml IV at 1000 ml once Route: IV; Rate: 1000 ml; Site: left ko1 antecubital; 12:11 Drug: NS 0.9% IV 1000 ml IV at 200 ml/hr continuous Route: IV; Rate: 200 ml/hr; Site: ko1 left antecubital; 12:30 Follow up: Response: No adverse reaction rs5 Medication: 11:22 VIS not applicable for this client. rs5 Outcome: 11:05 Decision to Hospitalize by Provider. rt 13:07 Admitted to ER Hold. Please see [facility] for further documentation. rs5 13:07 Condition: stable 13:07 Instructed on the need for admit, Demonstrated understanding of instructions, 15:10 Patient left the ED. tl4 Signatures: Dispatcher [employer] EDMS Molly Dorsey Amanda, RN RN ap3 Liana Raines RN RN ko1 Edwin Cristina MD MD rt Jasson Seaman RN RN rs5 Hemant Calderon tl4 Corrections: (The following items were deleted from the chart) 10:09 10:05 Chief complaint: EMS states: Pt is going through alcohol withdrawal, is shaky, rs5 nauseous, and complains of mid-epigastric abdominal pain. Last alcoholic beverage was 24 hrs ago rs5
[2023-11-10] MEDS ORDERED: HYDROMORPHONE HCL 1 MG/ML INJ ONE ×2 (11:34→13:53)
--- NOTE | 2023-11-10 11:46 | P.HP ---
Certification for Inpatient Patient admitted to: Inpatient With expected LOS: >2 Midnights Patient will require the following post-hospital care: None Practitioner: I am a practitioner with admitting privileges, knowledge of patient current condition, hospital course, and medical plan of care. Services: Services provided to patient in accordance with Admission requirements found in Title 42 Section 412.3 of the Code of Federal Regulations Patient History Date of Service: 11/10/23 Reason for admission: Pancreatitis History of Present Illness: 33-year-old male with history of pancreatitis, alcoholism, hypertension, anxiety/depression presents to the emergency department with chief complaint of epigastric pain, nausea. He was recently in the hospital admitted on 10/23/2020 and discharged on 10/26/2023 for alcoholic pancreatitis, he reports he abstained from alcohol for approximately 1 week and then went back to drinking. He has been binge drinking for the past 1 week drinking a bottle of vodka per day. His last drink was last night 11/09/2023 at 2200. He was evaluated in the emergency department his labs are significant for hemoglobin 12.8 medic at 37.3 lipase 115 potassium 2.6 sodium [address] abdomen pelvis with IV contrast was performed which showed similar mild diffuse peripancreatic stranding consistent with pancreatitis. Cystic structure at the pancreatic body is not significantly changed and may represent a pseudocyst. Patient still tachycardic rates around 110, will need to be admitted for alcoholic pancreatitis, alcohol withdrawal. Allergies Sulfa (Sulfonamide Antibiotics) Allergy (Verified 10/23/23 22:31) [place] Home Medications: hydrOXYzine HCL [Atarax] 50 mg PO TID 10/23/23 Fluoxetine HCl [Prozac] 40 mg PO DAILY #30 tab 10/26/23 Hydrocodone 7.5/APAP 325 [Platter 7.5/325 mg] 1 tab PO Q6H PRN #10 tab 10/26/23 LORazepam [Ativan] 1 mg PO BID #3 tab 10/26/23 Lisinopril [Zestril] 10 mg PO DAILY #30 tab 10/26/23 Propranolol [Inderal*] 40 mg PO BIDP PRN #60 tab 10/26/23 Thiamine HCl 100 mg PO DAILY #30 tab 10/26/23 - Past Medical/Surgical History Diabetic: No -: HTN -: Pancreatitis -: ETOH abuse -: Hypertension -: Depression -: Hernia repairas a baby Psychosocial/ Personal History: Lives at home alone - Family History Family History: Reviewed- Non-Contributory - Social History Smoking Status: Never smoker Alcohol use: Yes CD- Drugs: Yes Caffeine use: No Place of Residence: Home Review of Systems 10-point ROS is otherwise unremarkable Gastrointestinal: Nausea, Abdominal Pain Physical Examination - Physical Exam General: Alert, In no apparent distress, Oriented x3 HEENT: Atraumatic, PERRLA, EOMI Neck: Supple, No LAD Respiratory: Clear to auscultation bilaterally, Normal air movement Cardiovascular: Regular rate/rhythm, Normal S1 S2 Gastrointestinal: Normal bowel sounds, Tenderness (Moderate right upper quadrant, epigastric tenderness) Musculoskeletal: No tenderness Integumentary: No rashes Neurological: Normal speech, Normal strength at 5/5 x4 extr, Normal tone, Normal affect - Studies Laboratory Data (last 24 hrs) 11/10/23 11/10/23 09:55 09:55 WBC 7.00 Hgb 12.8 L Hct 37.3 L Plt Count 200 Sodium 135 L Potassium 2.6 L* BUN 5 L Creatinine 0.78 Glucose 142 H Total Bilirubin 0.6 AST 93 H ALT 77 H Alkaline Phosphatase 125 H Lipase 115 H Assessment and Plan - Plan Assessment: Acute alcoholic pancreatitis Alcohol use disorder/alcohol withdrawals Hypokalemia Hypertension Depression Plan: Acute alcoholic pancreatitis Alcohol use disorder/alcohol withdrawals N.p.o., aggressive IV fluids, as needed pain medications and antiemetics Routine alcohol withdrawal assessments, as needed benzodiazepines Discussed at length need for complete cessation of alcohol Trend LFTs, lipase Hypokalemia Replaced in ED, protocol in place will check potassium, magnesium later today Hypertension Depression Continue home medications once verified DVT PPX: Lovenox Code status: Full Discharge Plan: Home Plan to discharge in: Greater than 2 days - Advance Directives Does patient have a Living Will: No Does patient have a Durable POA for Healthcare: No - Code Status/Comfort Care Code Status Assessed: Yes (Full code) Critical Care: No Time Spent Managing Pts Care (In Minutes): 70
[2023-11-10] MEDS: NA CHLORIDE 0.9% 1,000 ML IV SCH ×3 (12:09→18:59)
[2023-11-10] MEDS ORDERED: ONDANSETRON 4 MG/2 ML VIAL IV PRN (12:09)
[2023-11-10] MEDS: HYDROMORPHONE HCL 1 MG/ML INJ IV PRN ×4 (13:50→23:00)
[2023-11-10] MEDS ORDERED: PNEUMOCOCCAL VACCINE 0.5 ML IMVAC ONE (15:00)
[2023-11-10] MEDS: ENOXAPARIN 40 MG/0.4 ML SQ SCH (17:07)
[2023-11-10] MEDS ORDERED: FLUMAZENIL 0.1 MG/ML (5 mL VIAL) IV PRN (17:30)
[2023-11-10] MEDS ORDERED: LORazepam 2 MG/ML VIAL IV ONE (17:35)
[2023-11-10 18:54] LABS: Albumin 2.8 g/dL (3.4-5.0); Bilirubin Total 0.9 mg/dL (0.2-1.0); Phosphorus 1.9 mg/dL (2.5-4.9); Potassium 2.8 mEq/L (3.5-5.1); Protein, Total 6.5 g/dL (6.4-8.2)
[2023-11-10] MEDS: LORazepam 2 MG/ML VIAL IV SCH ×2 (18:59→22:00)
[2023-11-10] MEDS: HYDRALAZINE HCL 20 MG/ML VIAL IV PRN (22:00)
[2023-11-11] MEDS: NA CHLORIDE 0.9% 1,000 ML IV SCH
[2023-11-11] MEDS ORDERED: METOPROLOL TARTRATE 5 MG/5 ML INJ IV STA (00:10)
[2023-11-11] MEDS: LORazepam 2 MG/ML VIAL IV SCH ×6 (02:00→21:50)
[2023-11-11] MEDS: HYDROMORPHONE HCL 1 MG/ML INJ IV PRN ×6 (02:00→23:28)
[2023-11-11 04:33] LABS: Absolute Lymphocytes (CBC) 1.4 K/uL (0.7-4.9); Lymphocytes % 21.3 % (15.3-44.8); MCV 89.6 fL (80-100); MPV 6.7 fL (7.6-11.3); Platelets 144 thou/uL (152-406); RBC Red Blood Cell Count 3.91 M/uL (4.33-5.43)
[2023-11-11 04:58] LABS: Albumin 2.8 g/dL (3.4-5.0); Bilirubin Total 0.8 mg/dL (0.2-1.0); Magnesium 1.7 mg/dL (1.6-2.4); Phosphorus 2.3 mg/dL (2.5-4.9); Potassium 2.8 mEq/L (3.5-5.1); Protein, Total 6.5 g/dL (6.4-8.2)
[2023-11-11] MEDS ORDERED: POTASSIUM PHOS 40 MEQ in NA CHLORIDE 0.9% 500 ML IV ONE ×2 (06:00→08:00)
[2023-11-11] MEDS ORDERED: Magnesium Sulfate 2gm IVPB 2 G/50 ML BAG IV ONE (06:07)
[2023-11-11] MEDS: Ringers Lactate 1,000 ML IV SCH ×3 (06:16→21:50)
[2023-11-11] MEDS ORDERED: THIAMINE 200 MG/2 ML INJ ONE (08:12)
[2023-11-11] MEDS: THIAMINE 200 MG/2 ML INJ IVP SCH (08:17)
[2023-11-11] MEDS ORDERED: FOLIC ACID 1 MG, MULTIVITAMINS INJ 10 ML, THIAMINE HCL 100 MG in NA CHLORIDE 0.9% 1,000 ML IV SCH (09:00)
[2023-11-11] MEDS ORDERED: FOLIC ACID 1 MG TABLET ONE (09:48)
[2023-11-11] MEDS ORDERED: LORazepam 2 MG/ML VIAL ONE ×2 (09:49→21:45)
[2023-11-11] MEDS ORDERED: FOLIC ACID 5 MG/ML VIAL ONE (09:50)
[2023-11-11] MEDS: FOLIC ACID 5 MG/ML VIAL IVP SCH (09:54)
--- NOTE | 2023-11-11 10:15 | P.PN ---
Date of Service: 11/11/23 Subjective: Anxious, drowsy Tremulous ROS: 10 point ROS as noted above, otherwise negative Physical exam GEN: Alert, oriented, NAD, tremulous HEENT: Normal conjunctiva, sclera anicteric CV: Regular rate and rhythm, no edema Pulm: Nonlabored respirations on room air ABD: Soft, nontender, nondistended MSK: No joint tenderness Integumentary: No rashes Neuro: speech slurred, slowed, normal affect Vitals reviewed Assessment: Acute alcoholic pancreatitis Alcohol use disorder/alcohol withdrawals Hypokalemia Hypertension Depression Plan: Acute alcoholic pancreatitis Alcohol use disorder/alcohol withdrawals N.p.o., IV fluids, as needed pain medications and antiemetics Suffering from alcohol withdrawals, scheduled and as needed benzodiazepines ordered Pain seems to be improving, will trial clear liquids Continue ICU level of care Daily thiamine, folic acid Discussed at length need for complete cessation of alcohol Trend LFTs, lipase Hypokalemia, hypophosphatemia Protocol in place Hypertension Depression Continue home medications once verified VTE: Lovenox Code: Full Dispo: 3-4 days Time Spent Managing Pts Care (In Minutes): 35
--- NOTE | 2023-11-11 12:53 | EKG ---
Test Date: 2023-11-10 Test Time: 09:47:01 Rate Marker: LUNA MEASUREMENT RESULTS: Intervals: Rate: 110 AR: 132 QRSD: 90 QT: 370 QTc: 500 Blum: P: 65 AR: 132 QRS: 27 T: -33 INTERPRETIVE STATEMENTS: Sinus tachycardia ST & T wave abnormality, consider inferior ischemia ST & T wave abnormality, consider anterolateral ischemia Abnormal ECG Compared to ECG 10/23/2023 17:23:09 Possible ischemia now present ST (T wave) deviation still present Electronically Signed On 11-11-23 12:50:00 [employer] by Manny Shirley
[2023-11-11] MEDS: ENOXAPARIN 40 MG/0.4 ML SQ SCH (18:02)
[2023-11-11] MEDS ORDERED: HYDROMORPHONE HCL 1 MG/ML INJ ONE ×2 (19:56→23:25)
[2023-11-11] MEDS ORDERED: Ringers Lactate 1,000 ML IV ONE (21:45)
[2023-11-11] MEDS ORDERED: HYDRALAZINE HCL 20 MG/ML VIAL ONE (22:39)
[2023-11-11] MEDS: HYDRALAZINE HCL 20 MG/ML VIAL IV PRN (22:41)
[2023-11-12] MEDS ORDERED: LORazepam 2 MG/ML VIAL ONE ×2 (02:01→05:53)
[2023-11-12] MEDS: LORazepam 2 MG/ML VIAL IV SCH ×5 (02:03→17:54)
[2023-11-12] MEDS ORDERED: HYDROMORPHONE HCL 1 MG/ML INJ ONE ×2 (02:58→06:22)
[2023-11-12] MEDS: HYDROMORPHONE HCL 1 MG/ML INJ IV PRN ×4 (03:00→19:58)
[2023-11-12 04:49] LABS: Absolute Lymphocytes (CBC) 1.4 K/uL (0.7-4.9); Hematocrit 36.5 % (39.6-49.0); MCV 90.5 fL (80-100); Platelets 123 thou/uL (152-406); RBC Red Blood Cell Count 4.03 M/uL (4.33-5.43)
[2023-11-12 05:24] LABS: ALT/SGPT 75 U/L (16-61); AST/SGOT 102 U/L (15-37); Albumin 2.8 g/dL (3.4-5.0); Alkaline Phosphatase 113 U/L (45-117); Bicarbonate 29 mEq/L (21-32); Bilirubin Total 0.7 mg/dL (0.2-1.0); Glomerular Filtration Rate 143 ml/min (=/>90); Glucose Level 131 mg/dL (74-106); Lipase 56 U/L (13-75); Magnesium 1.9 mg/dL (1.6-2.4); Phosphorus 3.3 mg/dL (2.5-4.9); Potassium 2.8 mEq/L (3.5-5.1); Protein, Total 6.7 g/dL (6.4-8.2); Sodium Level 136 mEq/L (136-145)
[2023-11-12 05:28] LABS: BUN Blood Urea Nitrogen < 3 mg/dL (7-18)
[2023-11-12] MEDS ORDERED: KCL 20 MEQ/100 mL IVPB 100 ML IV ONE (05:54)
[2023-11-12] MEDS: KCL 20 MEQ/100 mL IVPB 20 MEQ/100 ML BAG IV SCH ×3 (05:55→09:55)
[2023-11-12] MEDS ORDERED: Ringers Lactate 1,000 ML IV ONE (05:56)
[2023-11-12] MEDS: Ringers Lactate 1,000 ML IV SCH ×3 (05:57→22:57)
--- NOTE | 2023-11-12 08:44 | P.PN ---
Date of Service: 11/12/23 Subjective: Tremulous Reports abd pain improving tolerating clears ROS: 10 point ROS as noted above, otherwise negative Physical exam GEN: Alert, oriented, NAD, tremulous HEENT: Normal conjunctiva, sclera anicteric CV: Regular rate and rhythm, no edema Pulm: Nonlabored respirations on room air ABD: Soft, nontender, nondistended MSK: No joint tenderness Integumentary: No rashes Neuro: speech slurred, slowed, normal affect Vitals reviewed Assessment: Acute alcoholic pancreatitis Alcohol use disorder/Severe alcohol withdrawals Hypokalemia Hypertension Depression Plan: Acute alcoholic pancreatitis Alcohol use disorder/ Severe alcohol withdrawals Still tremulous, tolerating clear liquids, will try full liquids for lunch Suffering from alcohol withdrawals, scheduled and as needed benzodiazepines ordered Continue ICU level of care today Daily thiamine, folic acid Discussed at length need for complete cessation of alcohol Trend LFTs, lipase Hypokalemia, hypophosphatemia Protocol in place, potassium still running low receiving IV K now Hypertension Depression Continue home medications once verified VTE: Lovenox Code: Full Dispo: 2-3 days Time Spent Managing Pts Care (In Minutes): 35 <Ming Morales - Last Filed: 11/12/23 08:42> Patient seen and examined on rounds this morning. Reports pain improving, tolerating clears, dry mouth, slurred speech tremor in b/l arms noted, improved when speaking denies hallucinations on scheduled ativan, only 1 dose PRN given in last 48hrs decrease frequency of pain medication, decrease frequency of ativan scheduled may need to further decrease later today/tomorrow patient appears to be improving requested advancement of diet, discussed need to cut back on IV pain medication continue thiamine LFTs with mild elevation today compared to yesterday suspect drowsiness/slurred speech secondary to withdrawal and benozdiazepine + Dilaudid use. decrease medications possible component of hepatic encephalopathy, but less likely monitor LFTs full liquid diet, advance if tolerating and pain not worsening continue ICU level of care <José Luis Ferguson - Last Filed: 11/12/23 16:50>
[2023-11-12] MEDS ORDERED: THIAMINE 200 MG/2 ML INJ ONE (09:00)
[2023-11-12] MEDS: FOLIC ACID 5 MG/ML VIAL IVP SCH (09:00)
[2023-11-12] MEDS ORDERED: HYDRALAZINE HCL 20 MG/ML VIAL ONE ×2 (09:08→16:37)
[2023-11-12] MEDS: HYDRALAZINE HCL 20 MG/ML VIAL IV PRN ×2 (09:16→16:39)
[2023-11-12] MEDS: THIAMINE 200 MG/2 ML INJ IVP SCH (09:16)
[2023-11-12] MEDS: FOLIC ACID 1 MG in NA CHLORIDE 0.9% 50 ML IV SCH (09:30)
[2023-11-12] MEDS: HYDROCODONE/APAP 7.5/325 MG TAB PO PRN ×3 (11:18→22:58)
[2023-11-12] MEDS ORDERED: POTASSIUM CL SA 10 MEQ TAB PO ONE ×2 (14:18→23:56)
[2023-11-12] MEDS: ENOXAPARIN 40 MG/0.4 ML SQ SCH (16:39)
[2023-11-13] MEDS: LORazepam 2 MG/ML VIAL IV SCH ×4 (00:14→18:24)
[2023-11-13] MEDS: HYDROMORPHONE HCL 1 MG/ML INJ IV PRN (01:32)
[2023-11-13 03:59] LABS: Absolute Lymphocytes (CBC) 1.4 K/uL (0.7-4.9); Hematocrit 36.3 % (39.6-49.0); Lymphocytes % 27.6 % (15.3-44.8); MCV 91.2 fL (80-100); MPV 7.2 fL (7.6-11.3); Platelets 120 thou/uL (152-406); RBC Red Blood Cell Count 3.98 M/uL (4.33-5.43)
[2023-11-13 04:17] LABS: Albumin 2.9 g/dL (3.4-5.0); Bilirubin Total 0.6 mg/dL (0.2-1.0); Magnesium 1.8 mg/dL (1.6-2.4); Phosphorus 2.6 mg/dL (2.5-4.9); Potassium 3.5 mEq/L (3.5-5.1); Protein, Total 6.6 g/dL (6.4-8.2)
[2023-11-13] MEDS ORDERED: LOPERAMIDE HCL 2 MG CAPSULE PO STA (04:30)
[2023-11-13] MEDS ORDERED: LOPERAMIDE HCL 2 MG CAPSULE ONE (04:39)
[2023-11-13] MEDS: HYDROCODONE/APAP 7.5/325 MG TAB PO PRN (04:40)
[2023-11-13 05:42] LABS: C.diff Antigen/Toxin Ag neg : Tox neg (NEG : NEG)
[2023-11-13] MEDS: Ringers Lactate 1,000 ML IV SCH ×3 (06:20→19:23)
[2023-11-13 07:14] VITALS: BMI 29.0
[2023-11-13] MEDS ORDERED: MAGNESIUM SULFATE 1 gm IVPB 1 GM/100 ML BAG IV ONE (08:00)
[2023-11-13] MEDS ORDERED: HYDROCODONE/APAP 5/325 MG TAB PO PRN (08:08)
[2023-11-13] MEDS ORDERED: THIAMINE 200 MG/2 ML INJ ONE (08:26)
[2023-11-13] MEDS: FOLIC ACID 1 MG in NA CHLORIDE 0.9% 50 ML IV SCH (08:30)
[2023-11-13] MEDS: THIAMINE 200 MG/2 ML INJ IVP SCH (08:31)
[2023-11-13] MEDS ORDERED: POTASSIUM CL SA 10 MEQ TAB PO ONE (09:00)
[2023-11-13] MEDS: HYDROCODONE/APAP 5/325 MG TAB PO PRN ×3 (10:50→22:48)
[2023-11-13] MEDS: ENOXAPARIN 40 MG/0.4 ML SQ SCH (16:48)
--- NOTE | 2023-11-13 17:40 | P.PN ---
Date of Service: 11/13/23 Subjective: Abdominal pain better, slept through examination conversing well when aroused ROS: 10 point ROS as noted above, otherwise negative Physical exam GEN: Alert, oriented, NAD, tremulous HEENT: Normal conjunctiva, sclera anicteric CV: Regular rate and rhythm, no edema Pulm: Nonlabored respirations on room air ABD: Soft, nontender, nondistended MSK: No joint tenderness Integumentary: No rashes Neuro: speech slurred, slowed, normal affect Vitals reviewed Assessment: Acute alcoholic pancreatitis Alcohol use disorder/Severe alcohol withdrawals Hypokalemia Hypertension Depression Plan: Acute alcoholic pancreatitis Alcohol use disorder/ Severe alcohol withdrawals Suffering from alcohol withdrawals, scheduled and as needed benzodiazepines ordered Continue ICU level of care today, likely downgrade tomorrow (11/14) Daily thiamine, folic acid Discussed at length need for complete cessation of alcohol Trend LFTs: AST 122/ALT 97/ alk phos 116 , lipase 51 Advanced diet, dc IV pain meds, norco 5-325 Hypokalemia, hypophosphatemia Protocol in place K 3.5, phos 2.6 Hypertension Depression Continue home medications once verified VTE: Lovenox Code: Full Dispo: 2-3 days Time Spent Managing Pts Care (In Minutes): 35 <Dyana Bermudez - Last Filed: 11/13/23 17:22> Patient seen and examined on rounds this morning. pain improving, tolerating food continues with tachycardia and mild tremor but improving reports diarrhea overnight, loose, hard to control as noted above, dc IV pain medication, transition to PO norco decrease remaining scheduled ativan doses to 1mg continue with PRN ativan continue ICU level of care <José Luis Ferguson - Last Filed: 11/13/23 20:42>
[2023-11-13] MEDS ORDERED: LORazepam 2 MG/ML VIAL ONE ×2 (18:23→20:13)
[2023-11-13] MEDS: LORazepam 2 MG/ML VIAL IV PRN (20:15)
[2023-11-13 22:39] VITALS: O2SAT 98
[2023-11-13] MEDS ORDERED: HYDROCODONE/APAP 5/325 MG TAB ONE (22:45)
[2023-11-14] MEDS ORDERED: LORazepam 2 MG/ML VIAL ONE (00:15)
[2023-11-14] MEDS: LORazepam 2 MG/ML VIAL IV SCH (00:16)
[2023-11-14 04:41] LABS: Absolute Lymphocytes (CBC) 1.5 K/uL (0.7-4.9); Hematocrit 37.3 % (39.6-49.0); Lymphocytes % 24.8 % (15.3-44.8); MCV 91.7 fL (80-100); Platelets 141 thou/uL (152-406); RBC Red Blood Cell Count 4.07 M/uL (4.33-5.43)
[2023-11-14 05:14] LABS: Bilirubin Total 0.6 mg/dL (0.2-1.0); Magnesium 1.9 mg/dL (1.6-2.4); Phosphorus 2.8 mg/dL (2.5-4.9); Potassium 3.5 mEq/L (3.5-5.1); Protein, Total 6.7 g/dL (6.4-8.2)
[2023-11-14] MEDS ORDERED: Ringers Lactate 1,000 ML IV ONE (05:35)
[2023-11-14] MEDS: Ringers Lactate 1,000 ML IV SCH (05:37)
[2023-11-14] MEDS ORDERED: POTASSIUM CL SA 10 MEQ TAB PO ONE ×2 (05:38→06:11)
[2023-11-14] MEDS ORDERED: HYDROCODONE/APAP 5/325 MG TAB ONE ×2 (06:12→12:25)
[2023-11-14] MEDS: HYDROCODONE/APAP 5/325 MG TAB PO PRN ×2 (06:17→12:27)
[2023-11-14] MEDS ORDERED: THIAMINE 200 MG/2 ML INJ ONE (08:46)
[2023-11-14] MEDS: FOLIC ACID 1 MG in NA CHLORIDE 0.9% 50 ML IV SCH (09:21)
[2023-11-14] MEDS: THIAMINE 200 MG/2 ML INJ IVP SCH (09:23)
[2023-11-14 14:59] VITALS: BP 153/88; TEMP 98.7
--- NOTE | 2023-11-14 17:43 | P.DS ---
Admission Date: 11/10/23 Discharge Date: 11/14/23 Reason for Admission: Pancreatitis Brief History of Present Illness: Diagnosis: Acute alcoholic pancreatitis Alcohol use disorder/Severe alcohol withdrawals Hypokalemia Hypertension Depression Hospital Course: Mc Barrios is a 33 year old male admitted to [facility] on 11/10/23 for Acute alcoholic pancreatitis. He has had a recent episode of alcoholic pancreatitis admitted on 10/23/2023 and discharged 10/26/2023. He has tolerated IV fluids, n.p.o. with advancement to clear liquid, then full liquid, and soft GI diet this afternoon. He is hemodynamically stable, on room air sating at 96%, conversing well, alert and oriented x 3, and ambulating independently. He is ready for discharge today 11/14/2023 with recommendations for alcohol cessation, follow-up with PCP for continued medical management, follow-up with the gastrointestinal for pancreatitis management. Mc continues to complain of diarrhea which has slowed down this admission and can be treated with [id number] Imodium. Continue with folic acid and thiamine which was called into the chosen pharmacy. <Dyana Bermudez - Last Filed: 11/14/23 17:44> Admission Date: 11/10/23 Discharge Date: 11/14/23 <José Luis Ferguson - Last Filed: 11/14/23 20:32> Disposition: ROUTINE DISCHARGE Discharge Condition: FAIR Vital Signs/Physical Exam: Temp Pulse Resp BP Pulse Ox 98.7 F 101 H 18 153/88 H 93 11/14/23 15:00 11/14/23 15:00 11/14/23 15:00 11/14/23 15:00 11/14/23 15:00 Laboratory Data at Discharge: WBC 6.00 thou/uL (4.3-10.9) 11/14/23 04:15 Hgb 12.5 g/dL (13.6-17.9) L 11/14/23 04:15 Hct 37.3 % (39.6-49.0) L 11/14/23 04:15 Plt Count 141 thou/uL (152-406) L 11/14/23 04:15 Sodium 137 mEq/L (136-145) 11/14/23 04:15 Potassium 3.5 mEq/L (3.5-5.1) 11/14/23 04:15 BUN 6 mg/dL (7-18) L 11/14/23 04:15 Creatinine 0.62 mg/dL (0.70-1.30) L 11/14/23 04:15 Glucose 108 mg/dL (74-106) H 11/14/23 04:15 Phosphorus 2.8 mg/dL (2.5-4.9) 11/14/23 04:15 Magnesium 1.9 mg/dL (1.6-2.4) 11/14/23 04:15 Total Bilirubin 0.6 mg/dL (0.2-1.0) 11/14/23 04:15 AST 141 U/L (15-37) H 11/14/23 04:15 ALT 121 U/L (16-61) H 11/14/23 04:15 Alkaline Phosphatase 109 U/L (45-117) 11/14/23 04:15 Lipase 37 U/L (13-75) 11/14/23 04:15 <Dyana Bermudez - Last Filed: 11/14/23 17:44> Vital Signs/Physical Exam: Temp Pulse Resp BP Pulse Ox 98.7 F 101 H 18 153/88 H 93 11/14/23 15:00 11/14/23 15:00 11/14/23 15:00 11/14/23 15:00 11/14/23 15:00 Laboratory Data at Discharge: WBC 6.00 thou/uL (4.3-10.9) 11/14/23 04:15 Hgb 12.5 g/dL (13.6-17.9) L 11/14/23 04:15 Hct 37.3 % (39.6-49.0) L 11/14/23 04:15 Plt Count 141 thou/uL (152-406) L 11/14/23 04:15 Sodium 137 mEq/L (136-145) 11/14/23 04:15 Potassium 3.5 mEq/L (3.5-5.1) 11/14/23 04:15 BUN 6 mg/dL (7-18) L 11/14/23 04:15 Creatinine 0.62 mg/dL (0.70-1.30) L 11/14/23 04:15 Glucose 108 mg/dL (74-106) H 11/14/23 04:15 Phosphorus 2.8 mg/dL (2.5-4.9) 11/14/23 04:15 Magnesium 1.9 mg/dL (1.6-2.4) 11/14/23 04:15 Total Bilirubin 0.6 mg/dL (0.2-1.0) 11/14/23 04:15 AST 141 U/L (15-37) H 11/14/23 04:15 ALT 121 U/L (16-61) H 11/14/23 04:15 Alkaline Phosphatase 109 U/L (45-117) 11/14/23 04:15 Lipase 37 U/L (13-75) 11/14/23 04:15 <José Luis Ferguson - Last Filed: 11/14/23 20:32> Diet: [place] Activity: Ad torrey Time spent managing pt's care (in minutes): 55 <Dyana Bermudez - Last Filed: 11/14/23 17:44> Physician Review: Patient Assessed, Agree with Above Assessment and Plan (Seen and examined, much improved. Stable for discharge) <José Luis Ferguson - Last Filed: 11/14/23 20:32> Home Medications: hydrOXYzine HCL [Atarax] 50 mg PO TID 10/23/23 Fluoxetine HCl [Prozac] 40 mg PO DAILY #30 tab 10/26/23 LORazepam [Ativan*] 1 mg PO BID #3 tab 10/26/23 Propranolol [Inderal*] 40 mg PO BIDP PRN #60 tab 10/26/23 Folic Acid 1 mg PO DAILY 30 Days #30 tab 11/14/23 Thiamine/B2/Niacin/B12/Papain [B-Complex Plus B-12 Tablet] 1 each PO DAILY 30 Days #30 tab 11/14/23 New Medications: Thiamine/B2/Niacin/B12/Papain [B-Complex Plus B-12 Tablet] 1 each PO DAILY 30 Days #30 tab Folic Acid 1 mg PO DAILY 30 Days #30 tab Physician Discharge Instructions: Physical exam GEN: Alert, oriented, NAD, tremulous HEENT: Normal conjunctiva, sclera anicteric CV: Regular rate and rhythm, no edema Pulm: Nonlabored respirations on room air ABD: Soft, nontender, nondistended MSK: No joint tenderness Integumentary: No rashes Neuro: speech slurred, slowed, normal affect 1. Please call and schedule a follow-up appointment with your PCP in 3-5 days - Please follow-up with your PCP for medication refills/adjustments 2. Follow-up with gastrointestinal in 1 week for further management of pancreatitis 3. Consider alcohol cessation 4. Slowly advance diet as tolerated 5. No activity restrictions 6. [place] was given at 1227, no driving or operating dangerous equipment until tomorrow. 7. [id number] Imodium for diarrhea symptoms 8. Return to ED if symptoms worsen Followup: NONE,NONE [Primary Care Provider] - (follow up in 3-5 days.)
== END 2023-11-14 15:36 | disposition home or self-care (01) | DRG 439 ==
LOC: ER 09:38 → ERHOLD 12:02 → 3RD-ICU 15:01
PROVIDERS: ADMIT Hospitalist; ATTEND Hospitalist
DX: K85.20 Alcohol induced acute pancreatitis without necrosis or infection (principal); F10.139 Alcohol abuse with withdrawal, unspecified; E83.39 Other disorders of phosphorus metabolism; I10 Essential (primary) hypertension; F32.A Depression, unspecified; E87.6 Hypokalemia; R00.0 Tachycardia, unspecified
CPT/HCPCS: 36415; 74177; 80053; 82947; 83690; 83735; 84100; 84132; 85025; 87177; 87209; 87324; 93005; 96374; 96375; 99285; J0360; J1170; J1650; J2405; J3411; J3475; J3480; J7030; J7040; J7120; Q9967